=== PATIENT | male | born 1975 | race Caucasian/White ===

== ENCOUNTER 2016-03-26 21:20 | Inpatient (IN) | payer MEDICARE ==
[~2016-03-26] VITALS: Ht 190.5 cm; Wt 115.7 kg
[2016-03-26 21:00] VITALS: BP 137/82
[~2016-03-26 21:20] MED LIST: COLI150V IJ; DIAZ10TA4 PO; HYDR8TAB2 PO; LACT1CAP72 PO; PANT40TA2 PO; TRAM50TA2 PO; VANC1PLA9 IV; ZOLP10TA2 PO
[2016-03-26] MEDS ORDERED: MAGNESIUM HYDROXIDE 30 ML UDC PO PRN (22:30)
[2016-03-26] MEDS ORDERED: COLISTIMETHATE SODIUM 150 MG VIAL IJ SCH (22:30)
[2016-03-26] MEDS ORDERED: ZOLPIDEM TARTRATE 5 MG TABLET PO PRN (22:30)
[2016-03-26] MEDS ORDERED: Z GUARD REMEDY 2 OZ OINT TP PRN (22:30)
[2016-03-26] MEDS ORDERED: ONDANSETRON HCL/PF 4 MG/2 ML VIAL IVP PRN (22:30)
[2016-03-26] MEDS ORDERED: HYDROMORPHONE INJ 2 MG/ML DISP.SYRIN ONE (22:32)
[2016-03-26] MEDS: HYDROMORPHONE INJ 2 MG/ML DISP.SYRIN IV PRN (22:37)
[2016-03-26] MEDS ORDERED: IV NS 0.9% 250 ML IV ONE (23:16)
[2016-03-26] MEDS ORDERED: SECONDARY IV SET 1 EA INFUS.SET MC ONE (23:16)
[2016-03-26] MEDS ORDERED: IV NS 0.9% 50 ML IV ONE (23:16)
[2016-03-26] MEDS ORDERED: IV SET PRIMARY PUMP SET 1 EA INFUS.SET MC ONE (23:17)
[2016-03-26] MEDS: COLISTIMETHATE SODIUM 150 MG in IV NS 0.9% 50 ML IV SCH (23:29)
[2016-03-26] MEDS ORDERED: COLISTIMETHATE SODIUM 150 MG in IV NS 0.9% 50 ML IV SCH (23:30)
[2016-03-27 04:00] VITALS: BP 118/81
[2016-03-27] MEDS ORDERED: HYDROMORPHONE INJ 2 MG/ML DISP.SYRIN ONE (05:56)
[2016-03-27] MEDS: HYDROMORPHONE INJ 2 MG/ML DISP.SYRIN IV PRN ×3 (06:00→22:12)
[2016-03-27 07:57] LABS: ALBUMIN 3.2 g/dL (3.4-5.0); BILIRUBIN,TOTAL 0.2 mg/dL (0.2-1.0); CALCIUM, SERUM 8.6 mg/dL (8.5-10.1); CREATININE 1.2 mg/dL (0.6-1.3); PHOSPHORUS 4.1 mg/dL (2.5-4.9); POTASSIUM 3.4 mmol/L (3.5-5.1); TOTAL PROTEIN, SERUM 7.2 g/dL (6.4-8.2)
[2016-03-27 08:00] VITALS: BP 121/62
[2016-03-27 08:00] LABS: BASOPHILS # (AUTO) 0.1 /CMM (0.0-0.2); BASOPHILS % (AUTO) 1.3 % (0.0-2.0); DIFF TOTAL % 100 %; EOSINOPHILS # (AUTO) 0.5 /CMM (0.0-0.7); EOSINOPHILS % (AUTO) 5.2 % (0.0-6.0); HEMATOCRIT 35 % (39-51); HEMOGLOBIN 11.1 g/dL (13.5-17.5); LYMPHOCYTES # (AUTO) 2.4 /CMM (0.8-4.8); LYMPHOCYTES % (AUTO) 23.9 % (20.0-44.0); MEAN CORPUSCULAR HEMOGLOBIN 22 PG (26.0-33.0); MEAN CORPUSCULAR HGB CONC 32 g/dl (31.0-36.0); MEAN CORPUSCULAR VOLUME 70 fL (80-96); MONOCYTES # (AUTO) 0.8 /CMM (0.1-1.30); MONOCYTES % (AUTO) 7.9 % (2.0-12.0); NEUTROPHILS # (AUTO) 6.2 /CMM (1.8-8.9); NEUTROPHILS % (AUTO) 61.7 % (43.0-81.0); PLATELET COUNT (AUTO) 426 /CMM (150-450); RED BLOOD CELL COUNT(AUTO) 4.99 MIL/uL (4.5-6.0)
[2016-03-27 08:09] LABS: THYROID STIMULATING HORMONE 5.006 uIU/mL (0.358-3.74)
[2016-03-27] MEDS: LACTOBACILLUS RHAMNOSUS GG 1 EACH CAP.SPRINK PO SCH ×2 (08:39→16:34)
[2016-03-27] MEDS: PANTOPRAZOLE 40 MG TABLET.DR PO SCH (08:39)
[2016-03-27] MEDS: DIAZEPAM 5 MG TABLET PO SCH ×3 (08:39→16:39)
[2016-03-27] MEDS ORDERED: DIAZEPAM 10 MG TABLET PO SCH (09:00)
[2016-03-27] MEDS: COLISTIMETHATE SODIUM 150 MG in IV NS 0.9% 50 ML IV SCH ×2 (09:12→16:34)
[2016-03-27] MEDS ORDERED: SECONDARY IV SET 1 EA INFUS.SET MC ONE (11:01)
[2016-03-27] MEDS: Magnesium 1GM/D5W 100ML PREMIX 100 ML IV SCH ×2 (11:03→12:38)
[2016-03-27] MEDS ORDERED: IV SET PRIMARY PUMP SET 1 EA INFUS.SET MC ONE (11:03)
[2016-03-27] MEDS: POTASSIUM CL. PREMIX PERIPHER. 50 ML IV SCH ×2 (11:06→12:57)
[2016-03-27 11:45] LABS: ERYTHROCYTE SEDIMENTATION RATE 47 MM/HR (0-15)
[2016-03-27 12:50] LABS: EOSINOPHILS % (MANUAL) 5 % (0-4); LYMPHOCYTES % (MANUAL) 32 % (16-48)
[2016-03-27 12:51] LABS: ANISOCYTOSIS 1+; MICROCYTOSIS 1+; PLATELET ESTIMATE INCREASED
[2016-03-27] MEDS ORDERED: SILVER NITRATE APPLICATOR 1 EA BOX TP ONE ×2 (15:00)
[2016-03-27] MEDS ORDERED: LIDOCAINE 1%-EPI 1:100,000 20 ML VIAL TP ONE (15:00)
[2016-03-27 16:00] VITALS: BP 134/74
[2016-03-27 20:00] VITALS: BP 146/89
[2016-03-27] MEDS: ACETAMINOPHEN 325 MG TABLET PO PRN (20:50)
[2016-03-28 04:00] VITALS: BP 123/70
[2016-03-28 06:36] LABS: BASOPHILS % (AUTO) 0.3 % (0.0-2.0); DIFF TOTAL % 100 %; EOSINOPHILS # (AUTO) 0.2 /CMM (0.0-0.7); EOSINOPHILS % (AUTO) 2.5 % (0.0-6.0); HEMATOCRIT 33 % (39-51); HEMOGLOBIN 10.8 g/dL (13.5-17.5); LYMPHOCYTES # (AUTO) 1.1 /CMM (0.8-4.8); LYMPHOCYTES % (AUTO) 13.7 % (20.0-44.0); MEAN CORPUSCULAR HEMOGLOBIN 22 PG (26.0-33.0); MEAN CORPUSCULAR HGB CONC 32 g/dl (31.0-36.0); MEAN CORPUSCULAR VOLUME 69 fL (80-96); MONOCYTES # (AUTO) 0.6 /CMM (0.1-1.30); NEUTROPHILS % (AUTO) 75.5 % (43.0-81.0); PLATELET COUNT (AUTO) 316 /CMM (150-450); RED BLOOD CELL COUNT(AUTO) 4.82 MIL/uL (4.5-6.0); WHITE BLOOD COUNT (AUTO) 7.9 K/uL (4.3-11.0)
[2016-03-28 07:10] LABS: CREATININE 1.3 mg/dL (0.6-1.3); PHOSPHORUS 3.1 mg/dL (2.5-4.9); POTASSIUM 3.1 mmol/L (3.5-5.1)
[2016-03-28 08:00] VITALS: BP_SYST 115; BP_DIAS 62; BP_DIAS 66
[2016-03-28] MEDS: HYDROMORPHONE INJ 2 MG/ML DISP.SYRIN IV PRN ×4 (08:27→22:08)
[2016-03-28] MEDS: PANTOPRAZOLE 40 MG TABLET.DR PO SCH (08:28)
[2016-03-28] MEDS: COLISTIMETHATE SODIUM 150 MG in IV NS 0.9% 50 ML IV SCH ×2 (08:28→17:41)
[2016-03-28] MEDS: LACTOBACILLUS RHAMNOSUS GG 1 EACH CAP.SPRINK PO SCH ×2 (08:28→17:21)
[2016-03-28] MEDS: DIAZEPAM 5 MG TABLET PO SCH ×2 (09:00→17:00)
[2016-03-28 10:01] LABS: ANISOCYTOSIS 2+; BAND % (MANUAL) 6 % (0.0-5.0); EOSINOPHILS % (MANUAL) 5 % (0-4); LYMPHOCYTES % (MANUAL) 13 % (16-48); MICROCYTOSIS 2+; PLATELET ESTIMATE ADEQUATE
[2016-03-28 10:02] LABS: HYPOCHROMASIA 2+
[2016-03-28] MEDS: POTASSIUM CHLORIDE 20 MEQ TAB.PRT.SR PO SCH ×2 (12:53→14:14)
[2016-03-28] MEDS: Magnesium 1GM/D5W 100ML PREMIX 100 ML IV SCH ×2 (12:53→17:05)
[2016-03-28] MEDS: HYDROGEL DRESSING 90 GM TUBE TP SCH (15:00)
[2016-03-28 16:00] VITALS: BP 120/72
[2016-03-28 20:00] VITALS: BP 127/66
[2016-03-28] MEDS: ACETAMINOPHEN 325 MG TABLET PO PRN (22:02)
[2016-03-29] VITALS (7 sets, daily range): BP systolic 96–136; BP diastolic 67–113
[2016-03-29] MEDS: HYDROMORPHONE INJ 2 MG/ML DISP.SYRIN IV PRN ×5 (03:17→21:14)
[2016-03-29 07:54] LABS: BASOPHILS % (AUTO) 0.6 % (0.0-2.0); DIFF TOTAL % 100 %; EOSINOPHILS # (AUTO) 0.4 /CMM (0.0-0.7); EOSINOPHILS % (AUTO) 5.8 % (0.0-6.0); HEMATOCRIT 33 % (39-51); HEMOGLOBIN 10.7 g/dL (13.5-17.5); LYMPHOCYTES # (AUTO) 1.6 /CMM (0.8-4.8); LYMPHOCYTES % (AUTO) 23.4 % (20.0-44.0); MEAN CORPUSCULAR HEMOGLOBIN 23 PG (26.0-33.0); MEAN CORPUSCULAR HGB CONC 33 g/dl (31.0-36.0); MEAN CORPUSCULAR VOLUME 70 fL (80-96); MONOCYTES % (AUTO) 14.7 % (2.0-12.0); NEUTROPHILS # (AUTO) 3.7 /CMM (1.8-8.9); NEUTROPHILS % (AUTO) 55.5 % (43.0-81.0); PLATELET COUNT (AUTO) 317 /CMM (150-450); RED BLOOD CELL COUNT(AUTO) 4.67 MIL/uL (4.5-6.0); WHITE BLOOD COUNT (AUTO) 6.7 K/uL (4.3-11.0)
[2016-03-29 08:20] LABS: CALCIUM, SERUM 8.5 mg/dL (8.5-10.1); CREATININE 1.4 mg/dL (0.6-1.3); PHOSPHORUS 3.6 mg/dL (2.5-4.9); POTASSIUM 2.9 mmol/L (3.5-5.1)
[2016-03-29] MEDS: COLISTIMETHATE SODIUM 150 MG in IV NS 0.9% 50 ML IV SCH ×2 (08:37→16:03)
[2016-03-29] MEDS: PANTOPRAZOLE 40 MG TABLET.DR PO SCH (08:38)
[2016-03-29] MEDS: LACTOBACILLUS RHAMNOSUS GG 1 EACH CAP.SPRINK PO SCH ×2 (08:38→16:04)
[2016-03-29] MEDS: DIAZEPAM 5 MG TABLET PO SCH ×2 (08:40→16:10)
[2016-03-29] MEDS: HYDROGEL DRESSING 90 GM TUBE TP SCH (08:40)
[2016-03-29] MEDS: ACETAMINOPHEN 325 MG TABLET PO PRN (08:48)
[2016-03-29] MEDS: MUPIROCIN OINT 2% 22 GM TUBE SCH ×2 (10:25→21:30)
[2016-03-29] MEDS: POTASSIUM CHLORIDE 20 MEQ TAB.PRT.SR PO SCH ×3 (12:54→14:51)
[2016-03-29] MEDS ORDERED: IV NS 0.9% 250 ML IV ONE (22:49)
[2016-03-30] VITALS: BP 130/80
[2016-03-30 00:01] VITALS: BP_SYST 130
[2016-03-30] MEDS: HYDROMORPHONE INJ 2 MG/ML DISP.SYRIN IV PRN ×7 (01:29→23:19)
[2016-03-30] MEDS: ZOLPIDEM TARTRATE 10 MG TABLET PO PRN (01:37)
[2016-03-30 04:00] VITALS: BP 149/89
[2016-03-30 08:03] LABS: BASOPHILS % (AUTO) 0.5 % (0.0-2.0); CALCIUM, SERUM 8.7 mg/dL (8.5-10.1); CREATININE 1.6 mg/dL (0.6-1.3); DIFF TOTAL % 100 %; EOSINOPHILS # (AUTO) 0.5 /CMM (0.0-0.7); EOSINOPHILS % (AUTO) 7.3 % (0.0-6.0); HEMATOCRIT 36 % (39-51); HEMOGLOBIN 11.1 g/dL (13.5-17.5); LYMPHOCYTES # (AUTO) 1.5 /CMM (0.8-4.8); LYMPHOCYTES % (AUTO) 20.5 % (20.0-44.0); MEAN CORPUSCULAR HEMOGLOBIN 22 PG (26.0-33.0); MEAN CORPUSCULAR HGB CONC 31 g/dl (31.0-36.0); MEAN CORPUSCULAR VOLUME 71 fL (80-96); MONOCYTES # (AUTO) 0.9 /CMM (0.1-1.30); MONOCYTES % (AUTO) 12.1 % (2.0-12.0); NEUTROPHILS # (AUTO) 4.4 /CMM (1.8-8.9); NEUTROPHILS % (AUTO) 59.6 % (43.0-81.0); PHOSPHORUS 4.1 mg/dL (2.5-4.9); PLATELET COUNT (AUTO) 358 /CMM (150-450); POTASSIUM 2.9 mmol/L (3.5-5.1); RED BLOOD CELL COUNT(AUTO) 5.02 MIL/uL (4.5-6.0); WHITE BLOOD COUNT (AUTO) 7.4 K/uL (4.3-11.0)
[2016-03-30] MEDS: HYDROGEL DRESSING 90 GM TUBE TP SCH (09:00)
[2016-03-30] MEDS: LACTOBACILLUS RHAMNOSUS GG 1 EACH CAP.SPRINK PO SCH ×2 (09:00→17:00)
[2016-03-30] MEDS: PANTOPRAZOLE 40 MG TABLET.DR PO SCH (09:00)
[2016-03-30] MEDS: DIAZEPAM 5 MG TABLET PO SCH ×2 (09:00→17:00)
[2016-03-30 09:11] VITALS: BP 144/70
[2016-03-30] MEDS: MUPIROCIN OINT 2% 22 GM TUBE SCH ×2 (09:14→21:13)
[2016-03-30] MEDS: COLISTIMETHATE SODIUM 150 MG in IV NS 0.9% 50 ML IV SCH ×2 (09:19→17:00)
[2016-03-30] MEDS ORDERED: LIDOCAINE HCL/PF 1% 30 ML SDV ONE (12:30)
[2016-03-30] MEDS ORDERED: BUPIVACAINE MPF 0.5% W/EPI INJ 30 ML VIAL ONE (12:31)
[2016-03-30] MEDS ORDERED: MIDAZOLAM HCL 2 MG/2ML VIAL ONE (13:26)
[2016-03-30] MEDS ORDERED: FENTANYL PF 100MCG/2ML AMPUL ONE (13:26)
[2016-03-30] MEDS ORDERED: Magnesium 1GM/D5W 100ML PREMIX 100 ML IV SCH (13:45)
[2016-03-30] MEDS: POTASSIUM CL. PREMIX PERIPHER. 50 ML IV SCH ×6 (14:00→23:18)
[2016-03-30] MEDS ORDERED: HYDROGEN PEROXIDE 480 ML BOTTLE ONE (15:50)
[2016-03-30 18:51] VITALS: BP 144/70
[2016-03-30] MEDS ORDERED: ANESTHESIA TRAY IN PYXIS 1 EA TRAY MC ONE (19:02)
[2016-03-30] MEDS: Magnesium 1GM/D5W 100ML PREMIX 100 ML IV SCH ×2 (19:58→21:13)
[2016-03-30 20:00] VITALS: BP 135/74
[2016-03-31] VITALS: BP 122/72
[2016-03-31] MEDS: POTASSIUM CL. PREMIX PERIPHER. 50 ML IV SCH ×6 (00:34→19:59)
[2016-03-31] MEDS: HYDROMORPHONE INJ 2 MG/ML DISP.SYRIN IV PRN ×5 (03:16→21:30)
[2016-03-31 04:00] VITALS: BP 129/72
[2016-03-31 06:50] LABS: CALCIUM, SERUM 8.2 mg/dL (8.5-10.1); POTASSIUM 2.9 mmol/L (3.5-5.1)
[2016-03-31 08:00] VITALS: BP 101/61
[2016-03-31] MEDS ORDERED: IV NS 0.9% 250 ML IV ONE (08:52)
[2016-03-31] MEDS ORDERED: IV SET PRIMARY PUMP SET 1 EA INFUS.SET MC ONE ×2 (08:53→17:24)
[2016-03-31] MEDS ORDERED: SECONDARY IV SET 1 EA INFUS.SET MC ONE ×2 (08:53→14:49)
[2016-03-31] MEDS: DIAZEPAM 5 MG TABLET PO SCH ×2 (09:00→18:29)
[2016-03-31] MEDS: PANTOPRAZOLE 40 MG TABLET.DR PO SCH (09:12)
[2016-03-31] MEDS: LACTOBACILLUS RHAMNOSUS GG 1 EACH CAP.SPRINK PO SCH ×2 (09:12→18:28)
[2016-03-31] MEDS: COLISTIMETHATE SODIUM 150 MG in IV NS 0.9% 50 ML IV SCH ×2 (09:12→17:35)
[2016-03-31] MEDS: MUPIROCIN OINT 2% 22 GM TUBE SCH ×2 (09:13→21:30)
[2016-03-31] MEDS: HYDROGEL DRESSING 90 GM TUBE TP SCH (09:15)
[2016-03-31 12:00] VITALS: BP 115/73
[2016-03-31] MEDS ORDERED: Magnesium 1GM/D5W 100ML PREMIX 100 ML IV SCH ×2 (12:00→16:00)
[2016-03-31 16:00] VITALS: BP 129/78
[2016-03-31] MEDS: Potassium Chloride 20 MEQ in IV NS 0.9% 1,000 ML IV PRN (17:27)
[2016-03-31 20:00] VITALS: BP 117/70
[2016-04-01] VITALS: BP 111/67
[2016-04-01 04:00] VITALS: BP 118/70
[2016-04-01] MEDS: HYDROMORPHONE INJ 2 MG/ML DISP.SYRIN IV PRN ×5 (05:48→23:20)
[2016-04-01 06:37] LABS: BASOPHILS # (AUTO) 0.1 /CMM (0.0-0.2); BASOPHILS % (AUTO) 0.6 % (0.0-2.0); DIFF TOTAL % 100 %; EOSINOPHILS # (AUTO) 0.5 /CMM (0.0-0.7); EOSINOPHILS % (AUTO) 5.3 % (0.0-6.0); HEMATOCRIT 32 % (39-51); HEMOGLOBIN 10.3 g/dL (13.5-17.5); LYMPHOCYTES # (AUTO) 1.4 /CMM (0.8-4.8); LYMPHOCYTES % (AUTO) 14.6 % (20.0-44.0); MEAN CORPUSCULAR HEMOGLOBIN 23 PG (26.0-33.0); MEAN CORPUSCULAR HGB CONC 32 g/dl (31.0-36.0); MEAN CORPUSCULAR VOLUME 71 fL (80-96); MONOCYTES # (AUTO) 0.8 /CMM (0.1-1.30); MONOCYTES % (AUTO) 8.7 % (2.0-12.0); NEUTROPHILS # (AUTO) 6.8 /CMM (1.8-8.9); NEUTROPHILS % (AUTO) 70.8 % (43.0-81.0); PLATELET COUNT (AUTO) 383 /CMM (150-450); RED BLOOD CELL COUNT(AUTO) 4.56 MIL/uL (4.5-6.0); WHITE BLOOD COUNT (AUTO) 9.6 K/uL (4.3-11.0)
[2016-04-01 06:55] LABS: CALCIUM, SERUM 8.5 mg/dL (8.5-10.1)
[2016-04-01 07:22] LABS: POTASSIUM 2.7 mmol/L (3.5-5.1)
[2016-04-01 08:00] VITALS: BP 104/55
[2016-04-01] MEDS ORDERED: POTASSIUM CHLORIDE 20 MEQ TAB.PRT.SR PO ONE (09:00)
[2016-04-01] MEDS: DIAZEPAM 5 MG TABLET PO SCH ×2 (09:00→18:59)
[2016-04-01] MEDS: COLISTIMETHATE SODIUM 150 MG in IV NS 0.9% 50 ML IV SCH ×2 (09:19→17:00)
[2016-04-01] MEDS: PANTOPRAZOLE 40 MG TABLET.DR PO SCH (09:20)
[2016-04-01] MEDS: LACTOBACILLUS RHAMNOSUS GG 1 EACH CAP.SPRINK PO SCH ×2 (09:20→18:59)
[2016-04-01] MEDS: HYDROGEL DRESSING 90 GM TUBE TP SCH (09:21)
[2016-04-01] MEDS: MUPIROCIN OINT 2% 22 GM TUBE SCH ×2 (09:37→21:03)
[2016-04-01] MEDS ORDERED: Magnesium 1GM/D5W 100ML PREMIX PIGGYBACK IV ONE (12:00)
[2016-04-01] MEDS: ACETAMINOPHEN 325 MG TABLET PO PRN ×2 (12:17→21:03)
[2016-04-01] MEDS: Magnesium 1GM/D5W 100ML PREMIX 100 ML IV SCH ×2 (14:38→15:47)
[2016-04-01 16:00] VITALS: BP 116/68
[2016-04-01 20:00] VITALS: BP 131/70
[2016-04-01] MEDS: Potassium Chloride 20 MEQ in IV NS 0.9% 1,000 ML IV PRN (21:07)
[2016-04-02] MEDS: ZOLPIDEM TARTRATE 10 MG TABLET PO PRN (02:17)
[2016-04-02] MEDS: HYDROMORPHONE INJ 2 MG/ML DISP.SYRIN IV PRN ×5 (02:20→21:20)
[2016-04-02 04:00] VITALS: BP 124/73
[2016-04-02 06:20] LABS: CALCIUM, SERUM 8.2 mg/dL (8.5-10.1); CREATININE 1.7 mg/dL (0.6-1.3)
[2016-04-02] MEDS: Potassium Chloride 20 MEQ in IV NS 0.9% 1,000 ML IV PRN ×2 (06:31→22:58)
[2016-04-02 06:39] LABS: POTASSIUM 2.8 mmol/L (3.5-5.1)
[2016-04-02 08:00] VITALS: BP 130/75
[2016-04-02] MEDS: COLISTIMETHATE SODIUM 150 MG in IV NS 0.9% 50 ML IV SCH ×2 (08:43→16:53)
[2016-04-02] MEDS: DIAZEPAM 5 MG TABLET PO SCH ×2 (08:43→16:53)
[2016-04-02] MEDS: LACTOBACILLUS RHAMNOSUS GG 1 EACH CAP.SPRINK PO SCH ×2 (08:43→16:53)
[2016-04-02] MEDS: PANTOPRAZOLE 40 MG TABLET.DR PO SCH (08:43)
[2016-04-02] MEDS: HYDROGEL DRESSING 90 GM TUBE TP SCH (08:45)
[2016-04-02] MEDS: MUPIROCIN OINT 2% 22 GM TUBE SCH ×2 (08:47→20:59)
[2016-04-02] MEDS: POTASSIUM CL. PREMIX PERIPHER. 50 ML IV SCH ×4 (11:18→15:19)
[2016-04-02] MEDS ORDERED: POTASSIUM CL. PREMIX PERIPHER. 50 ML IV SCH (11:30)
[2016-04-02 16:00] VITALS: BP 109/70
[2016-04-02 20:00] VITALS: BP 125/78
[2016-04-02] MEDS: LINEZOLID 600 MG TABLET PO SCH (20:59)
[2016-04-03] MEDS: HYDROMORPHONE INJ 2 MG/ML DISP.SYRIN IV PRN ×6 (01:14→21:44)
[2016-04-03 04:00] VITALS: BP 144/80
[2016-04-03 08:00] VITALS: BP 139/68
[2016-04-03] MEDS: COLISTIMETHATE SODIUM 150 MG in IV NS 0.9% 50 ML IV SCH ×2 (09:03→17:23)
[2016-04-03] MEDS: LACTOBACILLUS RHAMNOSUS GG 1 EACH CAP.SPRINK PO SCH ×2 (09:04→17:17)
[2016-04-03] MEDS: LINEZOLID 600 MG TABLET PO SCH ×2 (09:04→20:25)
[2016-04-03] MEDS: PANTOPRAZOLE 40 MG TABLET.DR PO SCH (09:04)
[2016-04-03] MEDS: DIAZEPAM 5 MG TABLET PO SCH ×2 (09:04→17:00)
[2016-04-03] MEDS: MUPIROCIN OINT 2% 22 GM TUBE SCH (09:05)
[2016-04-03] MEDS: Potassium Chloride 20 MEQ in IV NS 0.9% 1,000 ML IV PRN (09:05)
[2016-04-03] MEDS: HYDROGEL DRESSING 90 GM TUBE TP SCH (09:05)
[2016-04-03 12:00] VITALS: BP 113/75
[2016-04-03] MEDS: ACETAMINOPHEN 325 MG TABLET PO PRN (13:14)
[2016-04-03 14:50] LABS: BASOPHILS % (AUTO) 0.6 % (0.0-2.0); DIFF TOTAL % 100 %; EOSINOPHILS # (AUTO) 0.5 /CMM (0.0-0.7); EOSINOPHILS % (AUTO) 7.3 % (0.0-6.0); HEMATOCRIT 29 % (39-51); HEMOGLOBIN 9.4 g/dL (13.5-17.5); LYMPHOCYTES # (AUTO) 1.8 /CMM (0.8-4.8); LYMPHOCYTES % (AUTO) 25.5 % (20.0-44.0); MEAN CORPUSCULAR HEMOGLOBIN 22 PG (26.0-33.0); MEAN CORPUSCULAR HGB CONC 32 g/dl (31.0-36.0); MEAN CORPUSCULAR VOLUME 70 fL (80-96); MONOCYTES % (AUTO) 14.4 % (2.0-12.0); NEUTROPHILS # (AUTO) 3.7 /CMM (1.8-8.9); NEUTROPHILS % (AUTO) 52.2 % (43.0-81.0); PLATELET COUNT (AUTO) 346 /CMM (150-450); RED BLOOD CELL COUNT(AUTO) 4.19 MIL/uL (4.5-6.0); WHITE BLOOD COUNT (AUTO) 7.1 K/uL (4.3-11.0)
[2016-04-03 15:04] LABS: CALCIUM, SERUM 8.8 mg/dL (8.5-10.1); CREATININE 1.8 mg/dL (0.6-1.3); POTASSIUM 3.4 mmol/L (3.5-5.1)
[2016-04-03] MEDS ORDERED: Magnesium 1GM/D5W 100ML PREMIX PIGGYBACK IV ONE (15:30)
[2016-04-03 16:00] VITALS: BP 108/73
[2016-04-03] MEDS ORDERED: POLYETHYLENE GLYCOL 3350 17 GM POWD.PACK PO PRN (17:00)
[2016-04-03 17:01] LABS: EOSINOPHILS % (MANUAL) 5 % (0-4); LYMPHOCYTES % (MANUAL) 26 % (16-48)
[2016-04-03 17:02] LABS: ANISOCYTOSIS 2+; HYPOCHROMASIA 1+; PLATELET ESTIMATE ADEQUATE
[2016-04-03] MEDS ORDERED: SECONDARY IV SET 1 EA INFUS.SET MC ONE (17:13)
[2016-04-03] MEDS: DOCUSATE SODIUM 100 MG CAPSULE PO SCH (17:17)
[2016-04-03] MEDS: Magnesium 1GM/D5W 100ML PREMIX 100 ML IV SCH ×3 (17:21→21:38)
[2016-04-03] MEDS: POTASSIUM CL. PREMIX PERIPHER. 50 ML IV SCH ×2 (17:32→22:50)
[2016-04-03 20:00] VITALS: BP 120/76
[2016-04-04] VITALS (7 sets, daily range): BP systolic 115–149; BP diastolic 57–85
[2016-04-04] MEDS: HYDROMORPHONE INJ 2 MG/ML DISP.SYRIN IV PRN ×6 (00:20→23:05)
[2016-04-04] MEDS: MUPIROCIN OINT 2% 22 GM TUBE SCH ×3 (00:57→21:41)
[2016-04-04] MEDS: Magnesium 1GM/D5W 100ML PREMIX 100 ML IV SCH (01:58)
[2016-04-04] MEDS: ZOLPIDEM TARTRATE 10 MG TABLET PO PRN (01:58)
[2016-04-04 06:38] LABS: BASOPHILS # (AUTO) 0.2 /CMM (0.0-0.2); BASOPHILS % (AUTO) 2.4 % (0.0-2.0); DIFF TOTAL % 100 %; EOSINOPHILS # (AUTO) 0.7 /CMM (0.0-0.7); EOSINOPHILS % (AUTO) 7.9 % (0.0-6.0); HEMATOCRIT 30 % (39-51); HEMOGLOBIN 9.7 g/dL (13.5-17.5); LYMPHOCYTES # (AUTO) 2.2 /CMM (0.8-4.8); MEAN CORPUSCULAR HEMOGLOBIN 23 PG (26.0-33.0); MEAN CORPUSCULAR HGB CONC 32 g/dl (31.0-36.0); MEAN CORPUSCULAR VOLUME 70 fL (80-96); MONOCYTES # (AUTO) 0.9 /CMM (0.1-1.30); MONOCYTES % (AUTO) 11.3 % (2.0-12.0); NEUTROPHILS # (AUTO) 4.4 /CMM (1.8-8.9); NEUTROPHILS % (AUTO) 52.4 % (43.0-81.0); PLATELET COUNT (AUTO) 446 /CMM (150-450); WHITE BLOOD COUNT (AUTO) 8.4 K/uL (4.3-11.0)
[2016-04-04 07:29] LABS: CALCIUM, SERUM 9.1 mg/dL (8.5-10.1); CREATININE 1.7 mg/dL (0.6-1.3); POTASSIUM 3.3 mmol/L (3.5-5.1)
[2016-04-04] MEDS: LACTOBACILLUS RHAMNOSUS GG 1 EACH CAP.SPRINK PO SCH ×2 (09:13→16:09)
[2016-04-04] MEDS: DOCUSATE SODIUM 100 MG CAPSULE PO SCH ×2 (09:13→16:09)
[2016-04-04] MEDS: PANTOPRAZOLE 40 MG TABLET.DR PO SCH (09:13)
[2016-04-04] MEDS: LINEZOLID 600 MG TABLET PO SCH ×2 (09:13→21:40)
[2016-04-04] MEDS: COLISTIMETHATE SODIUM 150 MG in IV NS 0.9% 50 ML IV SCH ×2 (09:14→16:09)
[2016-04-04] MEDS: DIAZEPAM 5 MG TABLET PO SCH ×2 (09:14→16:10)
[2016-04-04] MEDS: HYDROGEL DRESSING 90 GM TUBE TP SCH (09:25)
[2016-04-04] MEDS: Potassium Chloride 20 MEQ in IV NS 0.9% 1,000 ML IV PRN (12:55)
[2016-04-04] MEDS ORDERED: POTASSIUM CHLORIDE 10 MEQ/50 ML PREMIXED IVPB FOR PERIPHERAL LINE IV ONE (14:00)
[2016-04-04] MEDS: POTASSIUM CL. PREMIX PERIPHER. 50 ML IV SCH ×3 (14:51→17:28)
[2016-04-05 04:00] VITALS: BP 133/84
[2016-04-05] MEDS: HYDROMORPHONE INJ 2 MG/ML DISP.SYRIN IV PRN ×4 (04:08→17:29)
[2016-04-05] MEDS ORDERED: NA PHOS,M-B/NA PHOS,DI-BA 1 EA ENEMA RC PRN ×2 (05:00→08:22)
[2016-04-05] MEDS ORDERED: NA PHOS,M-B/NA PHOS,DI-BA 1 EA ENEMA RC ONE (05:28)
[2016-04-05 07:33] LABS: BASOPHILS # (AUTO) 0.1 /CMM (0.0-0.2); BASOPHILS % (AUTO) 0.5 % (0.0-2.0); DIFF TOTAL % 100 %; EOSINOPHILS # (AUTO) 0.6 /CMM (0.0-0.7); EOSINOPHILS % (AUTO) 5.5 % (0.0-6.0); HEMATOCRIT 32 % (39-51); HEMOGLOBIN 10.1 g/dL (13.5-17.5); LYMPHOCYTES # (AUTO) 2.1 /CMM (0.8-4.8); LYMPHOCYTES % (AUTO) 20.9 % (20.0-44.0); MEAN CORPUSCULAR HEMOGLOBIN 22 PG (26.0-33.0); MEAN CORPUSCULAR HGB CONC 32 g/dl (31.0-36.0); MEAN CORPUSCULAR VOLUME 70 fL (80-96); MONOCYTES # (AUTO) 0.7 /CMM (0.1-1.30); MONOCYTES % (AUTO) 7.3 % (2.0-12.0); NEUTROPHILS # (AUTO) 6.7 /CMM (1.8-8.9); NEUTROPHILS % (AUTO) 65.8 % (43.0-81.0); PLATELET COUNT (AUTO) 470 /CMM (150-450); RED BLOOD CELL COUNT(AUTO) 4.51 MIL/uL (4.5-6.0); WHITE BLOOD COUNT (AUTO) 10.1 K/uL (4.3-11.0)
[2016-04-05 07:56] LABS: CREATININE 1.7 mg/dL (0.6-1.3); POTASSIUM 3.4 mmol/L (3.5-5.1)
[2016-04-05 08:00] VITALS: BP 118/74
[2016-04-05 08:39] LABS: BAND % (MANUAL) 2 % (0.0-5.0); EOSINOPHILS % (MANUAL) 4 % (0-4); LYMPHOCYTES % (MANUAL) 11 % (16-48)
[2016-04-05 08:40] LABS: ANISOCYTOSIS 3+; HYPOCHROMASIA 1+; MICROCYTOSIS 1+; PLATELET ESTIMATE INCREASED
[2016-04-05] MEDS: COLISTIMETHATE SODIUM 150 MG in IV NS 0.9% 50 ML IV SCH ×2 (09:25→17:34)
[2016-04-05] MEDS: DOCUSATE SODIUM 100 MG CAPSULE PO SCH ×2 (09:27→17:29)
[2016-04-05] MEDS: LACTOBACILLUS RHAMNOSUS GG 1 EACH CAP.SPRINK PO SCH ×2 (09:27→17:29)
[2016-04-05] MEDS: DIAZEPAM 5 MG TABLET PO SCH ×2 (09:27→17:29)
[2016-04-05] MEDS: LINEZOLID 600 MG TABLET PO SCH ×2 (09:27→23:14)
[2016-04-05] MEDS: PANTOPRAZOLE 40 MG TABLET.DR PO SCH (09:27)
[2016-04-05] MEDS: HYDROGEL DRESSING 90 GM TUBE TP SCH (09:29)
[2016-04-05] MEDS: MUPIROCIN OINT 2% 22 GM TUBE SCH ×2 (09:29→21:00)
[2016-04-05] MEDS ORDERED: POTASSIUM CHLORIDE 20 MEQ TAB.PRT.SR PO ONE (13:00)
[2016-04-05] MEDS ORDERED: BISACODYL SUPP (10 MG) 10 MG/SUPP.RECT SUPP.RECT RC PRN (13:00)
[2016-04-05 16:00] VITALS: BP 133/72
[2016-04-05 20:00] VITALS: BP 143/83
[2016-04-06] VITALS: BP 143/83
[2016-04-06] MEDS: HYDROMORPHONE INJ 2 MG/ML DISP.SYRIN IV PRN ×3 (01:09→20:39)
[2016-04-06 04:00] VITALS: BP 137/86
[2016-04-06] MEDS: DOCUSATE SODIUM 100 MG CAPSULE PO SCH ×2 (08:45→16:22)
[2016-04-06] MEDS: LACTOBACILLUS RHAMNOSUS GG 1 EACH CAP.SPRINK PO SCH ×2 (08:47→16:22)
[2016-04-06] MEDS: HYDROGEL DRESSING 90 GM TUBE TP SCH (09:00)
[2016-04-06] MEDS: COLISTIMETHATE SODIUM 150 MG in IV NS 0.9% 50 ML IV SCH ×2 (09:00→16:22)
[2016-04-06] MEDS: PANTOPRAZOLE 40 MG TABLET.DR PO SCH (09:00)
[2016-04-06] MEDS: MUPIROCIN OINT 2% 22 GM TUBE SCH ×2 (09:00→21:20)
[2016-04-06] MEDS: LINEZOLID 600 MG TABLET PO SCH ×2 (09:00→21:15)
[2016-04-06] MEDS: DIAZEPAM 5 MG TABLET PO SCH ×2 (09:00→16:42)
[2016-04-06 09:02] LABS: CALCIUM, SERUM 8.4 mg/dL (8.5-10.1); CREATININE 1.7 mg/dL (0.6-1.3); POTASSIUM 3.2 mmol/L (3.5-5.1)
[2016-04-06 18:49] VITALS: BP 132/77
[2016-04-06 20:00] VITALS: BP 126/75
[2016-04-07] MEDS: HYDROMORPHONE INJ 2 MG/ML DISP.SYRIN IV PRN ×6 (00:30→21:42)
[2016-04-07 04:00] VITALS: BP 122/77
[2016-04-07 07:41] LABS: CALCIUM, SERUM 8.3 mg/dL (8.5-10.1); CREATININE 1.7 mg/dL (0.6-1.3)
[2016-04-07 08:05] LABS: POTASSIUM 2.8 mmol/L (3.5-5.1)
[2016-04-07 09:00] VITALS: BP 128/68
[2016-04-07] MEDS: HYDROGEL DRESSING 90 GM TUBE TP SCH (09:00)
[2016-04-07] MEDS: MUPIROCIN OINT 2% 22 GM TUBE SCH ×2 (09:00→21:00)
[2016-04-07] MEDS: DIAZEPAM 5 MG TABLET PO SCH ×2 (09:14→16:49)
[2016-04-07] MEDS: DOCUSATE SODIUM 100 MG CAPSULE PO SCH ×2 (09:14→16:49)
[2016-04-07] MEDS: COLISTIMETHATE SODIUM 150 MG in IV NS 0.9% 50 ML IV SCH ×2 (09:14→18:11)
[2016-04-07] MEDS: PANTOPRAZOLE 40 MG TABLET.DR PO SCH (09:15)
[2016-04-07] MEDS: LACTOBACILLUS RHAMNOSUS GG 1 EACH CAP.SPRINK PO SCH ×2 (09:15→16:49)
[2016-04-07] MEDS: LINEZOLID 600 MG TABLET PO SCH ×2 (09:15→22:05)
[2016-04-07] MEDS: Potassium Chloride 20 MEQ in IV NS 0.9% 1,000 ML IV PRN (10:16)
[2016-04-07] MEDS ORDERED: POTASSIUM CHLORIDE 20 MEQ TAB.PRT.SR PO ONE (13:30)
[2016-04-07] MEDS ORDERED: SECONDARY IV SET 1 EA INFUS.SET MC ONE (14:03)
[2016-04-07] MEDS: POTASSIUM CL. PREMIX PERIPHER. 50 ML IV SCH ×4 (14:08→17:22)
[2016-04-07 16:00] VITALS: BP 140/54
[2016-04-07 20:00] VITALS: BP 126/83
[2016-04-08] VITALS: BP 126/83
[2016-04-08] MEDS: HYDROMORPHONE INJ 2 MG/ML DISP.SYRIN IV PRN ×7 (00:40→20:46)
[2016-04-08 04:00] VITALS: BP 127/76
[2016-04-08 08:00] VITALS: BP 122/65
[2016-04-08] MEDS: DIAZEPAM 5 MG TABLET PO SCH ×2 (09:00→17:00)
[2016-04-08 09:02] LABS: CALCIUM, SERUM 8.5 mg/dL (8.5-10.1); CREATININE 1.5 mg/dL (0.6-1.3); POTASSIUM 3.4 mmol/L (3.5-5.1)
[2016-04-08] MEDS ORDERED: SECONDARY IV SET 1 EA INFUS.SET MC ONE (09:28)
[2016-04-08] MEDS ORDERED: IV SET PRIMARY PUMP SET 1 EA INFUS.SET MC ONE (09:31)
[2016-04-08] MEDS: PANTOPRAZOLE 40 MG TABLET.DR PO SCH (09:37)
[2016-04-08] MEDS: LACTOBACILLUS RHAMNOSUS GG 1 EACH CAP.SPRINK PO SCH ×2 (09:37→17:39)
[2016-04-08] MEDS: DOCUSATE SODIUM 100 MG CAPSULE PO SCH ×2 (09:37→17:00)
[2016-04-08] MEDS: COLISTIMETHATE SODIUM 150 MG in IV NS 0.9% 50 ML IV SCH ×2 (09:37→17:39)
[2016-04-08] MEDS: LINEZOLID 600 MG TABLET PO SCH ×2 (09:38→20:47)
[2016-04-08] MEDS: HYDROGEL DRESSING 90 GM TUBE TP SCH (09:39)
[2016-04-08] MEDS: MUPIROCIN OINT 2% 22 GM TUBE SCH ×2 (09:40→20:47)
[2016-04-08 16:00] VITALS: BP_SYST 125; BP_DIAS 67; BP_DIAS 68
[2016-04-08 20:00] VITALS: BP 124/88
[2016-04-09] MEDS: HYDROMORPHONE INJ 2 MG/ML DISP.SYRIN IV PRN ×6 (00:32→23:03)
[2016-04-09 04:00] VITALS: BP 126/90
[2016-04-09 08:00] VITALS: BP 151/80
[2016-04-09 08:25] VITALS: BP 151/80
[2016-04-09] MEDS: DOCUSATE SODIUM 100 MG CAPSULE PO SCH ×2 (09:00→17:00)
[2016-04-09] MEDS: DIAZEPAM 5 MG TABLET PO SCH ×2 (09:00→17:17)
[2016-04-09] MEDS: COLISTIMETHATE SODIUM 150 MG in IV NS 0.9% 50 ML IV SCH ×2 (09:05→18:49)
[2016-04-09] MEDS: HYDROGEL DRESSING 90 GM TUBE TP SCH (09:09)
[2016-04-09] MEDS: PANTOPRAZOLE 40 MG TABLET.DR PO SCH (09:09)
[2016-04-09] MEDS: LACTOBACILLUS RHAMNOSUS GG 1 EACH CAP.SPRINK PO SCH ×2 (09:09→17:15)
[2016-04-09] MEDS: LINEZOLID 600 MG TABLET PO SCH ×2 (09:09→20:21)
[2016-04-09] MEDS: MUPIROCIN OINT 2% 22 GM TUBE SCH ×2 (09:09→20:22)
[2016-04-09 11:47] LABS: CALCIUM, SERUM 8.5 mg/dL (8.5-10.1); CREATININE 1.7 mg/dL (0.6-1.3); POTASSIUM 2.9 mmol/L (3.5-5.1)
[2016-04-09 16:00] VITALS: BP 107/46
[2016-04-09 16:41] VITALS: BP 107/66
[2016-04-09] MEDS ORDERED: POTASSIUM CHLORIDE 20 MEQ TAB.PRT.SR PO ONE (19:30)
[2016-04-09 20:00] VITALS: BP 130/70
[2016-04-09] MEDS ORDERED: SECONDARY IV SET 1 EA INFUS.SET MC ONE (20:10)
[2016-04-09] MEDS ORDERED: IV SET PRIMARY PUMP SET 1 EA INFUS.SET MC ONE (20:10)
[2016-04-09] MEDS ORDERED: IV NS 0.9% 500 ML IV ONE (20:11)
[2016-04-09] MEDS: POTASSIUM CL. PREMIX PERIPHER. 50 ML IV SCH ×3 (20:21→23:03)
[2016-04-10] MEDS: POTASSIUM CL. PREMIX PERIPHER. 50 ML IV SCH (00:34)
[2016-04-10] MEDS: HYDROMORPHONE INJ 2 MG/ML DISP.SYRIN IV PRN ×5 (02:41→20:39)
[2016-04-10 02:45] VITALS: BP 125/76
[2016-04-10 04:00] VITALS: BP 130/84
[2016-04-10 08:00] VITALS: BP_SYST 122; BP_SYST 95; BP_DIAS 35; BP_DIAS 79
[2016-04-10] MEDS: DOCUSATE SODIUM 100 MG CAPSULE PO SCH ×2 (09:00→17:19)
[2016-04-10] MEDS: HYDROGEL DRESSING 90 GM TUBE TP SCH (09:00)
[2016-04-10] MEDS: MUPIROCIN OINT 2% 22 GM TUBE SCH ×2 (09:00→21:28)
[2016-04-10] MEDS: LINEZOLID 600 MG TABLET PO SCH ×2 (09:07→20:40)
[2016-04-10] MEDS: DIAZEPAM 5 MG TABLET PO SCH ×2 (09:07→17:19)
[2016-04-10] MEDS: COLISTIMETHATE SODIUM 150 MG in IV NS 0.9% 50 ML IV SCH ×2 (09:07→17:21)
[2016-04-10] MEDS: PANTOPRAZOLE 40 MG TABLET.DR PO SCH (09:07)
[2016-04-10] MEDS: LACTOBACILLUS RHAMNOSUS GG 1 EACH CAP.SPRINK PO SCH ×2 (09:08→17:19)
[2016-04-10] MEDS ORDERED: SECONDARY IV SET 1 EA INFUS.SET MC ONE ×2 (09:16→21:22)
[2016-04-10 10:11] LABS: CALCIUM, SERUM 8.2 mg/dL (8.5-10.1); CREATININE 1.6 mg/dL (0.6-1.3); POTASSIUM 3.3 mmol/L (3.5-5.1)
[2016-04-10] MEDS ORDERED: POTASSIUM CHLORIDE 20 MEQ TAB.PRT.SR PO SCH (15:00)
[2016-04-10 16:00] VITALS: BP 142/75
[2016-04-10 20:00] VITALS: BP 130/72
[2016-04-10 20:20] VITALS: BP 130/72
[2016-04-11] MEDS: HYDROMORPHONE INJ 2 MG/ML DISP.SYRIN IV PRN ×6 (00:17→20:54)
[2016-04-11 04:00] VITALS: BP 133/90
[2016-04-11 04:33] VITALS: BP 129/66
[2016-04-11 06:58] LABS: BASOPHILS # (AUTO) 0.1 /CMM (0.0-0.2); BASOPHILS % (AUTO) 0.5 % (0.0-2.0); DIFF TOTAL % 100 %; EOSINOPHILS # (AUTO) 0.6 /CMM (0.0-0.7); EOSINOPHILS % (AUTO) 6.2 % (0.0-6.0); HEMATOCRIT 34 % (39-51); HEMOGLOBIN 10.5 g/dL (13.5-17.5); LYMPHOCYTES # (AUTO) 2.6 /CMM (0.8-4.8); LYMPHOCYTES % (AUTO) 26.6 % (20.0-44.0); MEAN CORPUSCULAR HEMOGLOBIN 22 PG (26.0-33.0); MEAN CORPUSCULAR HGB CONC 31 g/dl (31.0-36.0); MEAN CORPUSCULAR VOLUME 72 fL (80-96); MONOCYTES # (AUTO) 0.8 /CMM (0.1-1.30); MONOCYTES % (AUTO) 7.7 % (2.0-12.0); NEUTROPHILS # (AUTO) 5.8 /CMM (1.8-8.9); PLATELET COUNT (AUTO) 431 /CMM (150-450); RED BLOOD CELL COUNT(AUTO) 4.69 MIL/uL (4.5-6.0); WHITE BLOOD COUNT (AUTO) 9.9 K/uL (4.3-11.0)
[2016-04-11 07:33] LABS: CALCIUM, SERUM 8.7 mg/dL (8.5-10.1); CREATININE 1.7 mg/dL (0.6-1.3)
[2016-04-11] MEDS: MUPIROCIN OINT 2% 22 GM TUBE SCH ×2 (09:00→21:11)
[2016-04-11] MEDS: DOCUSATE SODIUM 100 MG CAPSULE PO SCH ×2 (09:00→17:00)
[2016-04-11] MEDS: HYDROGEL DRESSING 90 GM TUBE TP SCH (09:00)
[2016-04-11] MEDS: PANTOPRAZOLE 40 MG TABLET.DR PO SCH (09:05)
[2016-04-11] MEDS: DIAZEPAM 5 MG TABLET PO SCH ×2 (09:05→16:34)
[2016-04-11] MEDS: COLISTIMETHATE SODIUM 150 MG in IV NS 0.9% 50 ML IV SCH ×2 (09:05→18:05)
[2016-04-11] MEDS: LINEZOLID 600 MG TABLET PO SCH ×2 (09:05→21:10)
[2016-04-11] MEDS: LACTOBACILLUS RHAMNOSUS GG 1 EACH CAP.SPRINK PO SCH ×2 (09:05→16:34)
[2016-04-11 09:57] LABS: ANISOCYTOSIS 2+; BAND % (MANUAL) 1 % (0.0-5.0); EOSINOPHILS % (MANUAL) 8 % (0-4); LYMPHOCYTES % (MANUAL) 29 % (16-48); MICROCYTOSIS 2+; PLATELET ESTIMATE INCREASED
[2016-04-11 09:58] LABS: HYPOCHROMASIA 1+
[2016-04-11] MEDS ORDERED: Magnesium 1GM/D5W 100ML PREMIX PIGGYBACK IV ONE (11:30)
[2016-04-11] MEDS ORDERED: Magnesium 1 GM/2 ML VIAL IV ONE (11:30)
[2016-04-11 12:00] VITALS: BP 115/71
[2016-04-11] MEDS: Magnesium 1GM/D5W 100ML PREMIX 100 ML IV SCH ×4 (12:13→15:11)
[2016-04-11] MEDS ORDERED: POTASSIUM CHLORIDE 10 MEQ TABLET.SA PO SCH (13:00)
[2016-04-11 20:00] VITALS: BP 151/88
[2016-04-12] MEDS: HYDROMORPHONE INJ 2 MG/ML DISP.SYRIN IV PRN ×5 (02:03→18:17)
[2016-04-12 04:00] VITALS: BP 149/93
[2016-04-12 04:06] VITALS: BP 149/93
[2016-04-12 07:08] LABS: CALCIUM, SERUM 9.1 mg/dL (8.5-10.1); CREATININE 1.9 mg/dL (0.6-1.3); POTASSIUM 2.9 mmol/L (3.5-5.1)
[2016-04-12 08:00] VITALS: BP 141/84
[2016-04-12 08:20] LABS: KETONES,URINE NEGATIVE (NEGATIVE); LEUKOCYTE ESTERASE ,URINE 1+ (NEGATIVE)
[2016-04-12 08:23] LABS: ADD UA MICROSCOPIC YES
[2016-04-12 08:48] LABS: ADD URINE CULTURE YES
[2016-04-12] MEDS: DOCUSATE SODIUM 100 MG CAPSULE PO SCH ×2 (09:00→16:31)
[2016-04-12] MEDS ORDERED: IV NS 0.9% 1,000 ML BAG IV ONE (09:30)
[2016-04-12] MEDS: COLISTIMETHATE SODIUM 150 MG in IV NS 0.9% 50 ML IV SCH (09:42)
[2016-04-12] MEDS: PANTOPRAZOLE 40 MG TABLET.DR PO SCH (09:42)
[2016-04-12] MEDS: LINEZOLID 600 MG TABLET PO SCH (09:42)
[2016-04-12] MEDS: LACTOBACILLUS RHAMNOSUS GG 1 EACH CAP.SPRINK PO SCH ×2 (09:42→17:09)
[2016-04-12] MEDS: DIAZEPAM 5 MG TABLET PO SCH ×2 (09:42→17:09)
[2016-04-12] MEDS: MUPIROCIN OINT 2% 22 GM TUBE SCH (09:45)
[2016-04-12] MEDS: HYDROGEL DRESSING 90 GM TUBE TP SCH (09:46)
[2016-04-12 09:50] LABS: CREATININE, URINE 85.6 MG/DL (30.0-125.0); URINE TOTAL PROTEIN 147.8 mg/dL (0-11.9)
[2016-04-12] MEDS ORDERED: IV NS 0.9% 1,000 ML ONE (11:36)
[2016-04-12] MEDS ORDERED: IV SET PRIMARY PUMP SET 1 EA INFUS.SET MC ONE (11:37)
[2016-04-12] MEDS ORDERED: POTASSIUM CHLORIDE 20 MEQ TAB.PRT.SR PO ONE (11:41)
[2016-04-12] MEDS ORDERED: SECONDARY IV SET 1 EA INFUS.SET MC ONE (11:51)
[2016-04-12] MEDS: POTASSIUM CL. PREMIX PERIPHER. 50 ML IV SCH ×4 (11:54→17:09)
[2016-04-12 14:00] VITALS: BP 133/85
[2016-04-12 16:00] VITALS: BP 133/85
== END 2016-04-12 19:10 | disposition home health service (06) | DRG 503 ==
LOC: MEDSG1 21:20 → TELE1 03-28 19:50 → MEDSG1 04-01 10:48
PROVIDERS: ADMIT Nurse Practitioner Acute Care; ATTEND Nurse Practitioner Acute Care
PROC: 0QBL0ZZ Excision of Right Tarsal, Open Approach (ICD-10-PCS; principal; 2016-03-30 12:00)
PROC: 02HV33Z Insertion of Infusion Device into Superior Vena Cava, Percutaneous Approach (ICD-10-PCS; 2016-04-01)
PROC: B548ZZA Ultrasonography of Superior Vena Cava, Guidance (ICD-10-PCS; 2016-04-01)
PROC: 05H533Z Insertion of Infusion Device into Right Subclavian Vein, Percutaneous Approach (ICD-10-PCS; 2016-04-09)
DX: M86.171 Other acute osteomyelitis, right ankle and foot (principal); N17.0 Acute kidney failure with tubular necrosis; L89.614 Pressure ulcer of right heel, stage 4; L89.314 Pressure ulcer of right buttock, stage 4; G82.20 Paraplegia, unspecified; N39.0 Urinary tract infection, site not specified; E44.1 Mild protein-calorie malnutrition; E11.52 Type 2 diabetes mellitus with diabetic peripheral angiopathy with gangrene; M86.671 Other chronic osteomyelitis, right ankle and foot; V89.2XXS Person injured in unspecified motor-vehicle accident, traffic, sequela; E66.9 Obesity, unspecified; I10 Essential (primary) hypertension; Z87.440 Personal history of urinary (tract) infections; Z87.891 Personal history of nicotine dependence; Z93.3 Colostomy status; E83.42 Hypomagnesemia; E66.01 Morbid (severe) obesity due to excess calories; E87.6 Hypokalemia; Z88.0 Allergy status to penicillin; L98.9 Disorder of the skin and subcutaneous tissue, unspecified; Z68.31 Body mass index [BMI] 31.0-31.9, adult; E88.09 Other disorders of plasma-protein metabolism, not elsewhere classified; Z22.322 Carrier or suspected carrier of Methicillin resistant Staphylococcus aureus; B96.4 Proteus (mirabilis) (morganii) as the cause of diseases classified elsewhere; B95.2 Enterococcus as the cause of diseases classified elsewhere; K59.00 Constipation, unspecified; S81.802A Unspecified open wound, left lower leg, initial encounter; S81.801A Unspecified open wound, right lower leg, initial encounter; L89.522 Pressure ulcer of left ankle, stage 2; G89.4 Chronic pain syndrome
CPT/HCPCS: 36415; 36569; 73600-TC; 74000-TC; 80048-TC; 80053-TC; 80061-TC; 81000-TC; 82436-TC; 82570-TC; 83735-TC; 83935-TC; 84100-TC; 84133-TC; 84155-TC; 84300-TC; 84439-TC; 84443-TC; 85025-TC; 85652-TC; 87040-TC; 87081-TC; 87086-TC; 87186-TC; 88305-TC; 88311-TC; 88312-TC; A4216; A6209; A6248; A6253; A6402; A6403; A6407; C1751; J0770; J1170; J2250; J3010; J3475; J3480; J3490; J7030; J7040; J7050; Z7610

== ENCOUNTER 2016-05-30 13:53 | Inpatient (IN) | payer MEDICARE ==
[~2016-05-30] VITALS: Ht 190.5 cm; Wt 114.3 kg
[~2016-05-30 13:53] MED LIST changes: -COLI150V IJ
[2016-05-30 15:30] VITALS: BP 124/67
[2016-05-30] MEDS ORDERED: VANCOMYCIN 1.5 GM in IV D5W 500 ML IV ONE (16:00)
[2016-05-30] MEDS ORDERED: ZOLPIDEM TARTRATE 5 MG TABLET PO PRN (16:00)
[2016-05-30] MEDS ORDERED: ONDANSETRON HCL/PF 4 MG/2 ML VIAL IVP PRN (16:00)
[2016-05-30] MEDS ORDERED: ZOLPIDEM TARTRATE 10 MG TABLET PO PRN (16:30)
[2016-05-30 16:52] LABS: BASOPHILS % (AUTO) 0.1 % (0.0-2.0); DIFF TOTAL % 100 %; EOSINOPHILS # (AUTO) 0.2 /CMM (0.0-0.7); EOSINOPHILS % (AUTO) 1.7 % (0.0-6.0); HEMATOCRIT 32 % (39-51); HEMOGLOBIN 10.1 g/dL (13.5-17.5); LYMPHOCYTES # (AUTO) 1.6 /CMM (0.8-4.8); MEAN CORPUSCULAR HEMOGLOBIN 23 PG (26.0-33.0); MEAN CORPUSCULAR HGB CONC 32 g/dl (31.0-36.0); MEAN CORPUSCULAR VOLUME 72 fL (80-96); MONOCYTES # (AUTO) 0.9 /CMM (0.1-1.30); NEUTROPHILS # (AUTO) 11.6 /CMM (1.8-8.9); NEUTROPHILS % (AUTO) 81.2 % (43.0-81.0); PLATELET COUNT (AUTO) 477 /CMM (150-450); RED BLOOD CELL COUNT(AUTO) 4.42 MIL/uL (4.5-6.0); WHITE BLOOD COUNT (AUTO) 14.3 K/uL (4.3-11.0)
[2016-05-30] MEDS ORDERED: DIAZEPAM 10 MG TABLET PO SCH (17:00)
[2016-05-30] MEDS ORDERED: MEROPENEM 1 G in IV NS 0.9% 100 ML IV ONE (17:00)
[2016-05-30 17:08] LABS: CALCIUM, SERUM 8.7 mg/dL (8.5-10.1); CREATININE 1.3 mg/dL (0.6-1.3); POTASSIUM 3.3 mmol/L (3.5-5.1)
[2016-05-30 17:12] LABS: BILIRUBIN,TOTAL 0.5 mg/dL (0.2-1.0); PHOSPHORUS 2.7 mg/dL (2.5-4.9); TOTAL PROTEIN, SERUM 8.7 g/dL (6.4-8.2)
[2016-05-30] MEDS ORDERED: POTASSIUM CHLORIDE 20 MEQ TAB.PRT.SR PO ONE (18:00)
[2016-05-30] MEDS ORDERED: IV SET PRIMARY PUMP SET 1 EA INFUS.SET MC ONE (18:13)
[2016-05-30] MEDS ORDERED: FEE PK DOSING 1 MIN EA MC ONE (18:27)
[2016-05-30] MEDS: DIAZEPAM 5 MG TABLET PO SCH (18:34)
[2016-05-30] MEDS: MAGNESIUM OXIDE 400 MG TABLET PO SCH (18:39)
[2016-05-30] MEDS: HYDROMORPHONE INJ 2 MG/ML DISP.SYRIN IV PRN ×2 (18:39→22:21)
[2016-05-30] MEDS: LACTOBACILLUS RHAMNOSUS GG 1 EACH CAP.SPRINK PO SCH (18:39)
[2016-05-30] MEDS: ENOXAPARIN SODIUM 40 MG/0.4 ML DISP.SYRIN SQ SCH (18:48)
[2016-05-30] MEDS ORDERED: SECONDARY IV SET 1 EA INFUS.SET MC ONE ×2 (19:50→21:53)
[2016-05-30] MEDS: VANCOMYCIN 1.25 GM in IV D5W 500 ML IV SCH (19:58)
[2016-05-30 20:00] VITALS: BP 144/62
[2016-05-30] MEDS: ACETAMINOPHEN 325 MG TABLET PO PRN (20:49)
[2016-05-30] MEDS: MEROPENEM 1 G in IV NS 0.9% 100 ML IV SCH (22:01)
[2016-05-31] MEDS: HYDROMORPHONE INJ 2 MG/ML DISP.SYRIN IV PRN ×6 (02:55→21:02)
[2016-05-31 04:00] VITALS: BP 137/52
[2016-05-31] MEDS: MEROPENEM 1 G in IV NS 0.9% 100 ML IV SCH ×3 (05:30→20:16)
[2016-05-31 06:47] LABS: BASOPHILS % (AUTO) 0.3 % (0.0-2.0); DIFF TOTAL % 100 %; EOSINOPHILS # (AUTO) 0.2 /CMM (0.0-0.7); EOSINOPHILS % (AUTO) 1.5 % (0.0-6.0); HEMATOCRIT 28 % (39-51); HEMOGLOBIN 8.8 g/dL (13.5-17.5); LYMPHOCYTES # (AUTO) 1.4 /CMM (0.8-4.8); LYMPHOCYTES % (AUTO) 10.9 % (20.0-44.0); MEAN CORPUSCULAR HEMOGLOBIN 23 PG (26.0-33.0); MEAN CORPUSCULAR HGB CONC 31 g/dl (31.0-36.0); MEAN CORPUSCULAR VOLUME 73 fL (80-96); MONOCYTES # (AUTO) 1.1 /CMM (0.1-1.30); MONOCYTES % (AUTO) 8.4 % (2.0-12.0); NEUTROPHILS # (AUTO) 10.4 /CMM (1.8-8.9); NEUTROPHILS % (AUTO) 78.9 % (43.0-81.0); PLATELET COUNT (AUTO) 396 /CMM (150-450); RED BLOOD CELL COUNT(AUTO) 3.89 MIL/uL (4.5-6.0); WHITE BLOOD COUNT (AUTO) 13.2 K/uL (4.3-11.0)
[2016-05-31 07:02] LABS: THYROID STIMULATING HORMONE 0.705 uIU/mL (0.358-3.74)
[2016-05-31 07:12] LABS: ALBUMIN 2.4 g/dL (3.4-5.0); BILIRUBIN,TOTAL 0.5 mg/dL (0.2-1.0); CALCIUM, SERUM 7.9 mg/dL (8.5-10.1); CREATININE 1.2 mg/dL (0.6-1.3); PHOSPHORUS 2.6 mg/dL (2.5-4.9); POTASSIUM 3.3 mmol/L (3.5-5.1); TOTAL PROTEIN, SERUM 7.6 g/dL (6.4-8.2)
[2016-05-31] MEDS: VANCOMYCIN 1.25 GM in IV D5W 500 ML IV SCH ×2 (07:35→20:14)
[2016-05-31] MEDS: PANTOPRAZOLE 40 MG TABLET.DR PO SCH (07:35)
[2016-05-31] MEDS: ACETAMINOPHEN 325 MG TABLET PO PRN ×2 (07:50→20:14)
[2016-05-31 08:00] VITALS: BP 122/59
[2016-05-31 08:02] LABS: ERYTHROCYTE SEDIMENTATION RATE > 140 MM/HR (0-15)
[2016-05-31] MEDS: LACTOBACILLUS RHAMNOSUS GG 1 EACH CAP.SPRINK PO SCH ×2 (08:13→18:14)
[2016-05-31] MEDS: DIAZEPAM 5 MG TABLET PO SCH ×2 (08:13→18:14)
[2016-05-31] MEDS: MAGNESIUM OXIDE 400 MG TABLET PO SCH ×3 (08:13→18:14)
[2016-05-31 09:43] LABS: ANISOCYTOSIS 3+; BAND % (MANUAL) 3 % (0.0-5.0); EOSINOPHILS % (MANUAL) 1 % (0-4); HYPOCHROMASIA 2+; LYMPHOCYTES % (MANUAL) 8 % (16-48); MICROCYTOSIS 2+; PLATELET ESTIMATE INCREASED
[2016-05-31] MEDS ORDERED: POTASSIUM CHLORIDE 20 MEQ TAB.PRT.SR PO SCH (11:00)
[2016-05-31] MEDS: IV NS 0.9% 1,000 ML IV PRN (12:37)
[2016-05-31 16:00] VITALS: BP 135/76
[2016-05-31] MEDS ORDERED: POLYETHYLENE GLYCOL 3350 17 GM POWD.PACK PO PRN (16:00)
[2016-05-31] MEDS: HYDROGEL DRESSING 90 GM TUBE TP SCH (16:47)
[2016-05-31] MEDS: DOCUSATE SODIUM 100 MG CAPSULE PO SCH (17:00)
[2016-05-31 20:00] VITALS: BP 118/53
[2016-05-31] MEDS: ENOXAPARIN SODIUM 40 MG/0.4 ML DISP.SYRIN SQ SCH (20:20)
[2016-06-01] MEDS: HYDROMORPHONE INJ 2 MG/ML DISP.SYRIN IV PRN ×6 (00:30→20:25)
[2016-06-01 04:00] VITALS: BP 118/48
[2016-06-01] MEDS: MEROPENEM 1 G in IV NS 0.9% 100 ML IV SCH ×3 (05:30→20:26)
[2016-06-01 06:49] LABS: CALCIUM, SERUM 8.2 mg/dL (8.5-10.1); CREATININE 0.9 mg/dL (0.6-1.3); POTASSIUM 3.5 mmol/L (3.5-5.1)
[2016-06-01 06:53] LABS: INR 1.05 (0.87-1.13); PROTHROMBIN TIME 11.3 SECS (9.5-12.7)
[2016-06-01 08:00] VITALS: BP 108/54
[2016-06-01] MEDS: HYDROGEL DRESSING 90 GM TUBE TP SCH (08:39)
[2016-06-01] MEDS: VANCOMYCIN 1.25 GM in IV D5W 500 ML IV SCH ×2 (08:47→21:10)
[2016-06-01] MEDS: PANTOPRAZOLE 40 MG TABLET.DR PO SCH (08:48)
[2016-06-01] MEDS: MAGNESIUM OXIDE 400 MG TABLET PO SCH ×3 (08:48→16:39)
[2016-06-01] MEDS: DIAZEPAM 5 MG TABLET PO SCH ×2 (08:48→16:39)
[2016-06-01] MEDS: FLUCONAZOLE (100 MG) 100 MG TABLET PO SCH (08:48)
[2016-06-01] MEDS: CYANOCOBALAMIN 1,000 MCG/ML VIAL IM SCH (08:50)
[2016-06-01] MEDS: LACTOBACILLUS RHAMNOSUS GG 1 EACH CAP.SPRINK PO SCH ×2 (08:50→16:39)
[2016-06-01] MEDS: DOCUSATE SODIUM 100 MG CAPSULE PO SCH ×2 (09:00→16:55)
[2016-06-01] MEDS ORDERED: CYANOCOBALAMIN 500 MCG TABLET PO SCH (09:00)
[2016-06-01 10:26] LABS: HIV-1 p24 ANTIGEN NON REACTIVE (NONREACTIVE); HIV-1/2 ANTIBODY NON REACTIVE (NONREACTIVE)
[2016-06-01] MEDS ORDERED: Z GUARD REMEDY 2 OZ OINT TP PRN (11:00)
[2016-06-01] MEDS: Z GUARD REMEDY 2 OZ OINT TP SCH (11:52)
[2016-06-01] MEDS: IV NS 0.9% 1,000 ML IV PRN (12:41)
[2016-06-01] MEDS ORDERED: SECONDARY IV SET 1 EA INFUS.SET MC ONE (14:50)
[2016-06-01] MEDS: SOD FERRIC GLUC 125 MG in IV NS 0.9% 100 ML IV SCH (14:53)
[2016-06-01 16:00] VITALS: BP 125/60
[2016-06-01] MEDS: FOLIC ACID 1 MG TABLET PO SCH (18:13)
[2016-06-01 20:00] VITALS: BP 103/50
[2016-06-01] MEDS: ENOXAPARIN SODIUM 40 MG/0.4 ML DISP.SYRIN SQ SCH (20:34)
[2016-06-01 20:36] LABS: KETONES,URINE NEGATIVE (NEGATIVE); LEUKOCYTE ESTERASE ,URINE 3+ (NEGATIVE)
[2016-06-01 20:37] LABS: ADD UA MICROSCOPIC YES
[2016-06-01 20:51] LABS: ADD URINE CULTURE YES; WBC,URINE 21-50 /HPF (0-3)
[2016-06-02] MEDS: HYDROMORPHONE INJ 2 MG/ML DISP.SYRIN IV PRN ×7 (03:32→22:53)
[2016-06-02 04:00] VITALS: BP_SYST 115; BP_SYST 121; BP_DIAS 53; BP_DIAS 60
[2016-06-02] MEDS: VANCOMYCIN 1 GM in IV D5W 250 ML IV SCH ×3 (04:56→21:05)
[2016-06-02] MEDS: MEROPENEM 1 G in IV NS 0.9% 100 ML IV SCH ×3 (04:56→21:05)
[2016-06-02 07:31] LABS: CREATININE 1.1 mg/dL (0.6-1.3)
[2016-06-02 08:00] VITALS: BP 110/70
[2016-06-02] MEDS: FLUCONAZOLE (100 MG) 100 MG TABLET PO SCH (09:29)
[2016-06-02] MEDS: DIAZEPAM 5 MG TABLET PO SCH ×2 (09:29→16:50)
[2016-06-02] MEDS: DOCUSATE SODIUM 100 MG CAPSULE PO SCH ×2 (09:29→16:50)
[2016-06-02] MEDS: FOLIC ACID 1 MG TABLET PO SCH (09:29)
[2016-06-02] MEDS: LACTOBACILLUS RHAMNOSUS GG 1 EACH CAP.SPRINK PO SCH ×2 (09:30→16:50)
[2016-06-02] MEDS: IV NS 0.9% 1,000 ML IV PRN (09:30)
[2016-06-02] MEDS: MAGNESIUM OXIDE 400 MG TABLET PO SCH ×3 (09:30→16:50)
[2016-06-02] MEDS: PANTOPRAZOLE 40 MG TABLET.DR PO SCH (09:31)
[2016-06-02] MEDS: CYANOCOBALAMIN 1,000 MCG/ML VIAL IM SCH (09:35)
[2016-06-02] MEDS: Z GUARD REMEDY 2 OZ OINT TP SCH (09:35)
[2016-06-02] MEDS: HYDROGEL DRESSING 90 GM TUBE TP SCH (09:35)
[2016-06-02] MEDS: CADEXOMER IODINE 40 GM TUBE TP SCH (09:46)
[2016-06-02] MEDS: POTASSIUM CHLORIDE 20 MEQ TAB.PRT.SR PO SCH ×3 (11:13→14:19)
[2016-06-02 11:15] LABS: *SPE ALBUMIN 2.7 g/dL (2.9-4.4)
[2016-06-02] MEDS: SOD FERRIC GLUC 125 MG in IV NS 0.9% 100 ML IV SCH (14:20)
[2016-06-02 16:00] VITALS: BP 116/66
[2016-06-02 20:00] VITALS: BP 121/63
[2016-06-02] MEDS: ENOXAPARIN SODIUM 40 MG/0.4 ML DISP.SYRIN SQ SCH (21:12)
[2016-06-03 04:00] VITALS: BP 116/50
[2016-06-03] MEDS: HYDROMORPHONE INJ 2 MG/ML DISP.SYRIN IV PRN ×7 (04:01→22:23)
[2016-06-03] MEDS: IV NS 0.9% 1,000 ML IV PRN (04:02)
[2016-06-03] MEDS: MEROPENEM 1 G in IV NS 0.9% 100 ML IV SCH ×3 (04:04→21:52)
[2016-06-03 04:18] LABS: CALCIUM, SERUM 8.3 mg/dL (8.5-10.1); CREATININE 0.9 mg/dL (0.6-1.3); POTASSIUM 3.5 mmol/L (3.5-5.1)
[2016-06-03] MEDS: VANCOMYCIN 1 GM in IV D5W 250 ML IV SCH ×3 (05:22→21:54)
[2016-06-03 08:00] VITALS: BP 110/51
[2016-06-03] MEDS: PANTOPRAZOLE 40 MG TABLET.DR PO SCH (08:43)
[2016-06-03] MEDS: DIAZEPAM 5 MG TABLET PO SCH ×2 (08:43→16:18)
[2016-06-03] MEDS: FLUCONAZOLE (100 MG) 100 MG TABLET PO SCH (08:44)
[2016-06-03] MEDS: MAGNESIUM OXIDE 400 MG TABLET PO SCH ×3 (08:44→16:18)
[2016-06-03] MEDS: LACTOBACILLUS RHAMNOSUS GG 1 EACH CAP.SPRINK PO SCH ×2 (08:44→16:18)
[2016-06-03] MEDS: FOLIC ACID 1 MG TABLET PO SCH (08:45)
[2016-06-03] MEDS: CYANOCOBALAMIN 1,000 MCG/ML VIAL IM SCH (08:45)
[2016-06-03] MEDS: DOCUSATE SODIUM 100 MG CAPSULE PO SCH ×3 (08:45→16:17)
[2016-06-03] MEDS: CADEXOMER IODINE 40 GM TUBE TP SCH (08:49)
[2016-06-03] MEDS: HYDROGEL DRESSING 90 GM TUBE TP SCH (08:49)
[2016-06-03] MEDS: Z GUARD REMEDY 2 OZ OINT TP SCH (09:09)
[2016-06-03 12:10] LABS: HEPATITIS C VIRUS AB <0.1 s/co ratio (0.0-0.9)
[2016-06-03] MEDS: SOD FERRIC GLUC 125 MG in IV NS 0.9% 100 ML IV SCH (15:13)
[2016-06-03 16:00] VITALS: BP_SYST 120; BP_DIAS 62; BP_DIAS 65
[2016-06-03 20:00] VITALS: BP 120/70
[2016-06-03] MEDS: ENOXAPARIN SODIUM 40 MG/0.4 ML DISP.SYRIN SQ SCH (21:55)
[2016-06-04 01:07] LABS: HEPATITIS Be AG Negative (Negative)
[2016-06-04] MEDS: HYDROMORPHONE INJ 2 MG/ML DISP.SYRIN IV PRN ×8 (01:26→22:46)
[2016-06-04 04:00] VITALS: BP 101/62
[2016-06-04] MEDS: IV NS 0.9% 1,000 ML IV PRN (05:15)
[2016-06-04] MEDS: MEROPENEM 1 G in IV NS 0.9% 100 ML IV SCH ×2 (05:16→12:03)
[2016-06-04] MEDS ORDERED: SECONDARY IV SET 1 EA INFUS.SET MC ONE (05:18)
[2016-06-04] MEDS: VANCOMYCIN 1 GM in IV D5W 250 ML IV SCH ×3 (05:24→21:36)
[2016-06-04] MEDS: PANTOPRAZOLE 40 MG TABLET.DR PO SCH ×2 (06:30→09:27)
[2016-06-04 07:11] LABS: BASOPHILS % (AUTO) 0.3 % (0.0-2.0); DIFF TOTAL % 100 %; EOSINOPHILS # (AUTO) 0.4 /CMM (0.0-0.7); EOSINOPHILS % (AUTO) 5.9 % (0.0-6.0); HEMATOCRIT 26 % (39-51); LYMPHOCYTES # (AUTO) 1.5 /CMM (0.8-4.8); LYMPHOCYTES % (AUTO) 23.6 % (20.0-44.0); MEAN CORPUSCULAR HEMOGLOBIN 23 PG (26.0-33.0); MEAN CORPUSCULAR HGB CONC 31 g/dl (31.0-36.0); MEAN CORPUSCULAR VOLUME 73 fL (80-96); MONOCYTES # (AUTO) 0.8 /CMM (0.1-1.30); MONOCYTES % (AUTO) 12.6 % (2.0-12.0); NEUTROPHILS # (AUTO) 3.6 /CMM (1.8-8.9); NEUTROPHILS % (AUTO) 57.6 % (43.0-81.0); PLATELET COUNT (AUTO) 475 /CMM (150-450); RED BLOOD CELL COUNT(AUTO) 3.55 MIL/uL (4.5-6.0); WHITE BLOOD COUNT (AUTO) 6.2 K/uL (4.3-11.0)
[2016-06-04 07:31] LABS: CALCIUM, SERUM 8.2 mg/dL (8.5-10.1); CREATININE 0.9 mg/dL (0.6-1.3); POTASSIUM 3.6 mmol/L (3.5-5.1)
[2016-06-04 08:00] VITALS: BP 105/57
[2016-06-04 08:41] LABS: ANISOCYTOSIS 2+; BAND % (MANUAL) 5 % (0.0-5.0); EOSINOPHILS % (MANUAL) 3 % (0-4); HYPOCHROMASIA 1+; LYMPHOCYTES % (MANUAL) 15 % (16-48); MICROCYTOSIS 2+; PLATELET ESTIMATE INCREASED
[2016-06-04 08:42] LABS: POLYCHROMASIA FEW; SPHEROCYTES 1+
[2016-06-04] MEDS: Z GUARD REMEDY 2 OZ OINT TP SCH (09:00)
[2016-06-04] MEDS: CADEXOMER IODINE 40 GM TUBE TP SCH (09:00)
[2016-06-04] MEDS: HYDROGEL DRESSING 90 GM TUBE TP SCH (09:00)
[2016-06-04] MEDS: MAGNESIUM OXIDE 400 MG TABLET PO SCH ×3 (09:27→16:56)
[2016-06-04] MEDS: FLUCONAZOLE (100 MG) 100 MG TABLET PO SCH (09:27)
[2016-06-04] MEDS: CYANOCOBALAMIN 1,000 MCG/ML VIAL IM SCH (09:27)
[2016-06-04] MEDS: DIAZEPAM 5 MG TABLET PO SCH ×2 (09:27→16:56)
[2016-06-04] MEDS: LACTOBACILLUS RHAMNOSUS GG 1 EACH CAP.SPRINK PO SCH ×2 (09:27→16:57)
[2016-06-04] MEDS: FOLIC ACID 1 MG TABLET PO SCH (09:27)
[2016-06-04] MEDS: DOCUSATE SODIUM 100 MG CAPSULE PO SCH ×2 (09:27→16:56)
[2016-06-04 12:00] VITALS: BP 110/62
[2016-06-04] MEDS: MEROPENEM 500 MG in IV NS 0.9% 50 ML IV SCH ×2 (13:00→20:41)
[2016-06-04] MEDS: SOD FERRIC GLUC 125 MG in IV NS 0.9% 100 ML IV SCH (15:37)
[2016-06-04 16:00] VITALS: BP 118/67
[2016-06-04 20:00] VITALS: BP 113/59
[2016-06-04] MEDS: ENOXAPARIN SODIUM 40 MG/0.4 ML DISP.SYRIN SQ SCH (20:42)
[2016-06-05] MEDS: IV NS 0.9% 1,000 ML IV PRN ×2 (00:12→18:12)
[2016-06-05 04:00] VITALS: BP 111/61
[2016-06-05] MEDS: HYDROMORPHONE INJ 2 MG/ML DISP.SYRIN IV PRN ×7 (04:50→23:59)
[2016-06-05] MEDS: MEROPENEM 500 MG in IV NS 0.9% 50 ML IV SCH ×3 (05:02→20:49)
[2016-06-05] MEDS: VANCOMYCIN 1 GM in IV D5W 250 ML IV SCH ×3 (05:35→21:20)
[2016-06-05 08:00] VITALS: BP 104/53
[2016-06-05 08:06] LABS: CALCIUM, SERUM 7.9 mg/dL (8.5-10.1); CREATININE 0.8 mg/dL (0.6-1.3); POTASSIUM 3.6 mmol/L (3.5-5.1)
[2016-06-05] MEDS: DIAZEPAM 5 MG TABLET PO SCH ×2 (08:36→17:36)
[2016-06-05] MEDS: LACTOBACILLUS RHAMNOSUS GG 1 EACH CAP.SPRINK PO SCH ×2 (08:36→17:37)
[2016-06-05] MEDS: FLUCONAZOLE (100 MG) 100 MG TABLET PO SCH (08:36)
[2016-06-05] MEDS: FOLIC ACID 1 MG TABLET PO SCH (08:36)
[2016-06-05] MEDS: MAGNESIUM OXIDE 400 MG TABLET PO SCH ×3 (08:36→17:37)
[2016-06-05] MEDS: CYANOCOBALAMIN 1,000 MCG/ML VIAL IM SCH (08:37)
[2016-06-05] MEDS: DOCUSATE SODIUM 100 MG CAPSULE PO SCH ×2 (08:38→17:00)
[2016-06-05] MEDS: CADEXOMER IODINE 40 GM TUBE TP SCH (08:41)
[2016-06-05] MEDS: Z GUARD REMEDY 2 OZ OINT TP SCH (08:41)
[2016-06-05] MEDS: HYDROGEL DRESSING 90 GM TUBE TP SCH (08:41)
[2016-06-05 12:24] LABS: HEPATITIS Be AB Negative (Negative)
[2016-06-05] MEDS ORDERED: SECONDARY IV SET 1 EA INFUS.SET MC ONE (14:47)
[2016-06-05] MEDS: SOD FERRIC GLUC 125 MG in IV NS 0.9% 100 ML IV SCH (14:54)
[2016-06-05 16:00] VITALS: BP 122/61
[2016-06-05 16:35] VITALS: BP 122/61
[2016-06-05 20:00] VITALS: BP 105/58
[2016-06-05] MEDS: ENOXAPARIN SODIUM 40 MG/0.4 ML DISP.SYRIN SQ SCH (20:51)
[2016-06-06] VITALS (7 sets, daily range): BP systolic 118–130; BP diastolic 72–77
[2016-06-06] MEDS: HYDROMORPHONE INJ 2 MG/ML DISP.SYRIN IV PRN ×7 (04:05→23:11)
[2016-06-06] MEDS: MEROPENEM 500 MG in IV NS 0.9% 50 ML IV SCH ×2 (04:21→12:56)
[2016-06-06] MEDS: VANCOMYCIN 1 GM in IV D5W 250 ML IV SCH ×3 (05:02→21:11)
[2016-06-06 05:39] LABS: BASOPHILS % (AUTO) 0.4 % (0.0-2.0); DIFF TOTAL % 100 %; EOSINOPHILS # (AUTO) 0.4 /CMM (0.0-0.7); EOSINOPHILS % (AUTO) 4.3 % (0.0-6.0); HEMATOCRIT 30 % (39-51); HEMOGLOBIN 9.2 g/dL (13.5-17.5); LYMPHOCYTES % (AUTO) 19.9 % (20.0-44.0); MEAN CORPUSCULAR HEMOGLOBIN 23 PG (26.0-33.0); MEAN CORPUSCULAR HGB CONC 31 g/dl (31.0-36.0); MEAN CORPUSCULAR VOLUME 74 fL (80-96); MONOCYTES # (AUTO) 0.6 /CMM (0.1-1.30); MONOCYTES % (AUTO) 6.1 % (2.0-12.0); NEUTROPHILS # (AUTO) 6.9 /CMM (1.8-8.9); NEUTROPHILS % (AUTO) 69.3 % (43.0-81.0); PLATELET COUNT (AUTO) 584 /CMM (150-450); RED BLOOD CELL COUNT(AUTO) 4.01 MIL/uL (4.5-6.0); WHITE BLOOD COUNT (AUTO) 9.9 K/uL (4.3-11.0)
[2016-06-06 05:54] LABS: ANISOCYTOSIS 3+; CALCIUM, SERUM 8.6 mg/dL (8.5-10.1); CREATININE 0.8 mg/dL (0.6-1.3); EOSINOPHILS % (MANUAL) 4 % (0-4); HYPOCHROMASIA 2+; LYMPHOCYTES % (MANUAL) 23 % (16-48); PHOSPHORUS 2.5 mg/dL (2.5-4.9); PLATELET ESTIMATE INCREASED; POTASSIUM 3.5 mmol/L (3.5-5.1)
[2016-06-06] MEDS: LACTOBACILLUS RHAMNOSUS GG 1 EACH CAP.SPRINK PO SCH ×2 (08:07→18:23)
[2016-06-06] MEDS: PANTOPRAZOLE 40 MG TABLET.DR PO SCH (08:07)
[2016-06-06] MEDS: DIAZEPAM 5 MG TABLET PO SCH ×2 (08:07→18:23)
[2016-06-06] MEDS: FOLIC ACID 1 MG TABLET PO SCH (08:07)
[2016-06-06] MEDS: FLUCONAZOLE (100 MG) 100 MG TABLET PO SCH (08:08)
[2016-06-06] MEDS: MAGNESIUM OXIDE 400 MG TABLET PO SCH ×3 (08:08→18:24)
[2016-06-06] MEDS: CYANOCOBALAMIN 1,000 MCG/ML VIAL IM SCH (08:09)
[2016-06-06] MEDS: Z GUARD REMEDY 2 OZ OINT TP SCH (08:10)
[2016-06-06] MEDS: HYDROGEL DRESSING 90 GM TUBE TP SCH (08:10)
[2016-06-06] MEDS: CADEXOMER IODINE 40 GM TUBE TP SCH (08:11)
[2016-06-06] MEDS: DOCUSATE SODIUM 100 MG CAPSULE PO SCH ×2 (08:11→17:00)
[2016-06-06] MEDS ORDERED: SECONDARY IV SET 1 EA INFUS.SET MC ONE (10:56)
[2016-06-06] MEDS ORDERED: IV SET PRIMARY PUMP SET 1 EA INFUS.SET MC ONE (10:57)
[2016-06-06] MEDS: IV NS 0.9% 1,000 ML IV PRN (11:03)
[2016-06-06] MEDS: Magnesium 1GM/D5W 100ML PREMIX 100 ML IV SCH ×2 (15:17→16:40)
[2016-06-06] MEDS: LEVOFLOXACIN (500MG) 500 MG TABLET PO SCH (18:32)
[2016-06-06] MEDS: ENOXAPARIN SODIUM 40 MG/0.4 ML DISP.SYRIN SQ SCH (21:12)
[2016-06-07] VITALS: BP 118/70
[2016-06-07 04:00] VITALS: BP 108/68
[2016-06-07] MEDS: HYDROMORPHONE INJ 2 MG/ML DISP.SYRIN IV PRN ×5 (04:11→16:47)
[2016-06-07] MEDS: VANCOMYCIN 1 GM in IV D5W 250 ML IV SCH ×2 (05:09→13:00)
[2016-06-07] MEDS: IV NS 0.9% 1,000 ML IV PRN (05:09)
[2016-06-07 06:44] LABS: BASOPHILS % (AUTO) 0.5 % (0.0-2.0); DIFF TOTAL % 100 %; EOSINOPHILS # (AUTO) 0.4 /CMM (0.0-0.7); EOSINOPHILS % (AUTO) 4.5 % (0.0-6.0); HEMATOCRIT 29 % (39-51); MEAN CORPUSCULAR HEMOGLOBIN 23 PG (26.0-33.0); MEAN CORPUSCULAR HGB CONC 31 g/dl (31.0-36.0); MEAN CORPUSCULAR VOLUME 74 fL (80-96); MONOCYTES # (AUTO) 0.3 /CMM (0.1-1.30); MONOCYTES % (AUTO) 3.5 % (2.0-12.0); NEUTROPHILS # (AUTO) 5.4 /CMM (1.8-8.9); NEUTROPHILS % (AUTO) 66.5 % (43.0-81.0); PLATELET COUNT (AUTO) 545 /CMM (150-450); RED BLOOD CELL COUNT(AUTO) 3.98 MIL/uL (4.5-6.0); WHITE BLOOD COUNT (AUTO) 8.1 K/uL (4.3-11.0)
[2016-06-07 07:06] LABS: CALCIUM, SERUM 8.5 mg/dL (8.5-10.1); CREATININE 0.7 mg/dL (0.6-1.3); PHOSPHORUS 3.3 mg/dL (2.5-4.9); POTASSIUM 4.1 mmol/L (3.5-5.1)
[2016-06-07 08:00] VITALS: BP 103/59
[2016-06-07] MEDS: PANTOPRAZOLE 40 MG TABLET.DR PO SCH (08:22)
[2016-06-07] MEDS: LACTOBACILLUS RHAMNOSUS GG 1 EACH CAP.SPRINK PO SCH ×2 (08:22→16:47)
[2016-06-07] MEDS: FOLIC ACID 1 MG TABLET PO SCH (08:22)
[2016-06-07] MEDS: FLUCONAZOLE (100 MG) 100 MG TABLET PO SCH (08:22)
[2016-06-07] MEDS: MAGNESIUM OXIDE 400 MG TABLET PO SCH ×3 (08:23→16:47)
[2016-06-07] MEDS: CYANOCOBALAMIN 1,000 MCG/ML VIAL IM SCH (08:23)
[2016-06-07] MEDS: DIAZEPAM 5 MG TABLET PO SCH ×2 (08:24→16:31)
[2016-06-07] MEDS: DOCUSATE SODIUM 100 MG CAPSULE PO SCH ×2 (08:25→16:28)
[2016-06-07] MEDS: Z GUARD REMEDY 2 OZ OINT TP SCH (08:31)
[2016-06-07] MEDS: HYDROGEL DRESSING 90 GM TUBE TP SCH (08:31)
[2016-06-07] MEDS: CADEXOMER IODINE 40 GM TUBE TP SCH (08:31)
[2016-06-07] MEDS ORDERED: DOXY100C41 PO (11:49)
[2016-06-07] MEDS ORDERED: LEVO750T21 PO (11:49)
[2016-06-07 16:00] VITALS: BP 135/71
[2016-06-07] MEDS: LEVOFLOXACIN (500MG) 500 MG TABLET PO SCH (16:50)
[2016-06-07] MEDS ORDERED: FLU VACC QS 2016-17(36MOS+)/PF 0.5 ML DISP.SYRIN IM ONE (17:00)
== END 2016-06-07 17:05 | disposition short-term general hospital (02) | DRG 871 ==
LOC: MEDSG1 14:58 → TELE1 15:27 → MEDSG1 15:45
PROVIDERS: ADMIT Nurse Practitioner Acute Care; ATTEND Nurse Practitioner Acute Care
PROC: 05H633Z Insertion of Infusion Device into Left Subclavian Vein, Percutaneous Approach (ICD-10-PCS; principal; 2016-05-30)
PROC: 05H533Z Insertion of Infusion Device into Right Subclavian Vein, Percutaneous Approach (ICD-10-PCS; 2016-06-04)
PROC: B546ZZA Ultrasonography of Right Subclavian Vein, Guidance (ICD-10-PCS; 2016-06-04)
DX: A41.9 Sepsis, unspecified organism (principal); L89.324 Pressure ulcer of left buttock, stage 4; L89.314 Pressure ulcer of right buttock, stage 4; E44.1 Mild protein-calorie malnutrition; N39.0 Urinary tract infection, site not specified; G82.20 Paraplegia, unspecified; D68.69 Other thrombophilia; E11.52 Type 2 diabetes mellitus with diabetic peripheral angiopathy with gangrene; L03.116 Cellulitis of left lower limb; L03.115 Cellulitis of right lower limb; L97.419 Non-pressure chronic ulcer of right heel and midfoot with unspecified severity; I10 Essential (primary) hypertension; E66.8 Other obesity; Z87.891 Personal history of nicotine dependence; Z93.3 Colostomy status; E66.01 Morbid (severe) obesity due to excess calories; E87.6 Hypokalemia; E83.42 Hypomagnesemia; K59.00 Constipation, unspecified; D50.9 Iron deficiency anemia, unspecified; D63.8 Anemia in other chronic diseases classified elsewhere; E11.621 Type 2 diabetes mellitus with foot ulcer; G89.4 Chronic pain syndrome; L97.529 Non-pressure chronic ulcer of other part of left foot with unspecified severity; N31.9 Neuromuscular dysfunction of bladder, unspecified; R65.20 Severe sepsis without septic shock; Z16.24 Resistance to multiple antibiotics; Z87.440 Personal history of urinary (tract) infections; L89.899 Pressure ulcer of other site, unspecified stage; Z68.31 Body mass index [BMI] 31.0-31.9, adult
CPT/HCPCS: 36415; 73610-TC; 80048-TC; 80053-TC; 80061-TC; 80202-TC; 81000-TC; 82272-TC; 82728-TC; 82746; 83540-TC; 83735-TC; 84100-TC; 84155; 84165; 84439-TC; 84443-TC; 85025-TC; 85045-TC; 85610-TC; 85652-TC; 85730-TC; 86707; 86803; 87040-TC; 87070-TC; 87081-TC; 87086-TC; 87110-TC; 87186-TC; 87350; 87400; A4216; A4217; A6248; A6402; A6403; C1751; J1170; J1650; J2185; J2916; J3370; J3420; J3475; J7030; J7060; Q2036

== ENCOUNTER 2016-06-23 19:28 | Inpatient (IN) | payer MEDICARE ==
[~2016-06-23] VITALS: Ht 190.5 cm; Wt 115.7 kg
[~2016-06-23 19:28] MED LIST changes: +DOXY100C41 PO; +LEVO750T21 PO; -VANC1PLA9 IV
[2016-06-23 20:00] VITALS: BP 118/61
[2016-06-23] MEDS ORDERED: IV NS 0.9% 1,000 ML BAG IV ONE (20:00)
[2016-06-23] MEDS ORDERED: IV NS 0.9% 1,000 ML IV ONE ×3 (20:00→22:00)
[2016-06-23] MEDS ORDERED: ONDANSETRON HCL/PF 4 MG/2 ML VIAL IVP PRN (20:00)
[2016-06-23] MEDS ORDERED: VANCOMYCIN 1.5 GM in IV D5W 500 ML IV ONE (20:00)
[2016-06-23] MEDS ORDERED: ACETAMINOPHEN 325 MG TABLET PO PRN (20:00)
[2016-06-23] MEDS ORDERED: Z GUARD REMEDY 2 OZ OINT TP PRN (20:00)
[2016-06-23] MEDS ORDERED: ZOLPIDEM TARTRATE 5 MG TABLET PO PRN (20:00)
[2016-06-23 20:30] VITALS: BP 118/61
[2016-06-23] MEDS ORDERED: COLISTIMETHATE SODIUM 150 MG VIAL NEB SCH (21:00)
[2016-06-23] MEDS ORDERED: FEE PK DOSING 1 MIN EA MC ONE (21:12)
[2016-06-23] MEDS ORDERED: IV NS 0.9% 1,000 ML IV PRN ×2 (21:30→22:00)
[2016-06-23] MEDS ORDERED: SECONDARY IV SET 1 EA INFUS.SET MC ONE ×2 (21:34→23:29)
[2016-06-23] MEDS ORDERED: IV SET PRIMARY PUMP SET 1 EA INFUS.SET MC ONE (21:36)
[2016-06-23 21:40] LABS: BASOPHILS % (AUTO) 0.4 % (0.0-2.0); EOSINOPHILS # (AUTO) 0.1 /CMM (0.0-0.7); EOSINOPHILS % (AUTO) 0.6 % (0.0-6.0); HEMATOCRIT 27 % (39-51); LYMPHOCYTES # (AUTO) 1.2 /CMM (0.8-4.8); LYMPHOCYTES % (AUTO) 12.6 % (20.0-44.0); MEAN CORPUSCULAR HEMOGLOBIN 24 PG (26.0-33.0); MEAN CORPUSCULAR HGB CONC 33 g/dl (31.0-36.0); MEAN CORPUSCULAR VOLUME 74 fL (80-96); MONOCYTES # (AUTO) 0.8 /CMM (0.1-1.30); MONOCYTES % (AUTO) 8.2 % (2.0-12.0); NEUTROPHILS # (AUTO) 7.6 /CMM (1.8-8.9); NEUTROPHILS % (AUTO) 78.2 % (43.0-81.0); PLATELET COUNT (AUTO) 308 /CMM (150-450); RDW COEFFICIENT OF VARIATION 21.9 (11.5-15.0); WHITE BLOOD COUNT (AUTO) 9.7 K/uL (4.3-11.0)
[2016-06-23] MEDS: VANCOMYCIN 1 GM in IV D5W 250 ML IV SCH (21:45)
[2016-06-23 21:56] LABS: ANISOCYTOSIS 2+; BASOPHILS % (MANUAL) 0 % (0.0-2.0); EOSINOPHILS % (MANUAL) 0 % (0-4); HYPOCHROMASIA 1+; LYMPHOCYTES % (MANUAL) 20 % (16-48); MONOCYTES % (MANUAL) 7 % (0-11.0); NEUTROPHILS % (MANUAL) 73 (42-76); PLATELET ESTIMATE ADEQUATE
[2016-06-23 22:05] LABS: ALBUMIN 2.5 g/dL (3.4-5.0); BILIRUBIN,TOTAL 0.4 mg/dL (0.2-1.0); CALCIUM, SERUM 8.1 mg/dL (8.5-10.1); MAGNESIUM 1.4 mg/dL (1.8-2.4); PHOSPHORUS 2.6 mg/dL (2.5-4.9); TOTAL PROTEIN, SERUM 6.5 g/dL (6.4-8.2)
[2016-06-23 22:07] LABS: POTASSIUM 2.5 mmol/L (3.5-5.1)
[2016-06-23] MEDS ORDERED: POTASSIUM CHLORIDE 20 MEQ TAB.PRT.SR PO ONE ×2 (23:00→23:32)
[2016-06-23] MEDS ORDERED: Magnesium 1GM/D5W 100ML PREMIX 400 ML IV ONE (23:28)
[2016-06-23] MEDS: Magnesium 1GM/D5W 100ML PREMIX 100 ML IV SCH (23:35)
[2016-06-24] VITALS: BP_SYST 116; BP_SYST 127; BP_DIAS 60; BP_DIAS 64
[2016-06-24] MEDS: Magnesium 1GM/D5W 100ML PREMIX 100 ML IV SCH ×3 (00:40→02:36)
[2016-06-24] MEDS ORDERED: POTASSIUM CHLORIDE 20 MEQ TAB.PRT.SR PO ONE ×3 (02:00→11:10)
--- NOTE | 2016-06-24 02:17 | NUR ---
RN LUCY. ADMISSION. PT DIRECT ADMISSION FROM HOME. PT AWAKE, ALERT, FOLLOW COMMANDS. SCHEDULING REPRESENTATIVE SHOWING S TACH. PT ON ROOM AIR. SAT 96 %. NO ACUTE DISTRESS NOTED. IV LT UPPER ARM MID LINE. 3LS NS BOLUS GIVEN. MULTIPLE WOUND NOTED. PICTURE TAKEN. ATTACHED TO THE FILE HOB ELEVATED. TURN AND REPOSITION Q2H. WILL CONTINUE TO MONITOR VITALS
--- NOTE | 2016-06-24 03:14 | NUR ---
RN NOTE. AM CARE. ORAL CARE, BED BATH GIVEN. LINEN CHANGED.PT ON ROOM AIR. SAT 96 %. NO ACUTE DISTRESS NOTED. TEST FACILITY ENGINEER SHOWING NSR. IV LT UPPER ARM MID LINE. SALINE LOCK. [id number]. WOUND DRESSING DOME. HOB ELEVATED. SUPRAPUBIC CATH INTACT, TURN AND REPOSITION Q2H. WILL CONTINUE TO MONITOR VITALS.
[2016-06-24] MEDS: HYDROMORPHONE INJ 2 MG/ML DISP.SYRIN IV PRN ×5 (03:43→23:13)
[2016-06-24 04:00] VITALS: BP_SYST 112; BP_SYST 120; BP_DIAS 55; BP_DIAS 63
[2016-06-24] MEDS: VANCOMYCIN 1 GM in IV D5W 250 ML IV SCH ×3 (05:16→21:04)
--- NOTE | 2016-06-24 07:45 | NUR ---
ÓSCAR/RN - Initial Notes Received pt in bed, Aox4. No acute distress. Respirations are even and unlabored. Pt medicated with Dilaudid 2mg IVP by overnight cashier nurse. On tele reading ST 120's. Suprapubic catheter noted, draining cloudy urine with sediments. Midline on left upper arm saline locked. Safety and comfort measures in place. Will continue to monitor pt closely.
[2016-06-24 08:00] VITALS: BP 101/60
[2016-06-24] MEDS ORDERED: PANT40TA4 PO (08:21)
[2016-06-24] MEDS ORDERED: TRAM50TA2 PO (08:21)
[2016-06-24] MEDS ORDERED: LACT1CAP72 PO (08:21)
[2016-06-24 08:23] LABS: BASOPHILS % (AUTO) 0.4 % (0.0-2.0); EOSINOPHILS # (AUTO) 0.1 /CMM (0.0-0.7); EOSINOPHILS % (AUTO) 2.3 % (0.0-6.0); HEMATOCRIT 28 % (39-51); HEMOGLOBIN 9.1 g/dL (13.5-17.5); LYMPHOCYTES # (AUTO) 0.9 /CMM (0.8-4.8); LYMPHOCYTES % (AUTO) 17.9 % (20.0-44.0); MEAN CORPUSCULAR HEMOGLOBIN 24 PG (26.0-33.0); MEAN CORPUSCULAR HGB CONC 32 g/dl (31.0-36.0); MEAN CORPUSCULAR VOLUME 75 fL (80-96); MONOCYTES # (AUTO) 0.6 /CMM (0.1-1.30); MONOCYTES % (AUTO) 11.4 % (2.0-12.0); NEUTROPHILS # (AUTO) 3.4 /CMM (1.8-8.9); PLATELET COUNT (AUTO) 274 /CMM (150-450); RED BLOOD CELL COUNT(AUTO) 3.79 MIL/uL (4.5-6.0)
[2016-06-24 08:23] LABS: APPEARANCE,URINE CLOUDY (CLEAR); BILIRUBIN,URINE NEGATIVE (NEGATIVE); BLOOD, URINE 1+ Ery/uL (NEGATIVE); COLOR,URINE YELLOW (YELLOW); KETONES,URINE NEGATIVE (NEGATIVE); LEUKOCYTE ESTERASE ,URINE 3+ (NEGATIVE); NITRITE, URINE POSITIVE (NEGATIVE); PROTEIN,URINE TRACE mg/dl (NEGATIVE); UGLUCOSE NEGATIVE (NEGATIVE); UROBILINOGEN,URINE 0.2 EU/dL (0.2)
[2016-06-24 08:29] LABS: LACTIC ACID 2.3 mmol/L (0.4-2.0)
[2016-06-24 08:32] LABS: ALBUMIN 2.4 g/dL (3.4-5.0); BILIRUBIN,TOTAL 0.2 mg/dL (0.2-1.0); CREATININE 0.9 mg/dL (0.6-1.3); MAGNESIUM 2.2 mg/dL (1.8-2.4); PHOSPHORUS 1.8 mg/dL (2.5-4.9); POTASSIUM 3.6 mmol/L (3.5-5.1); TOTAL PROTEIN, SERUM 6.5 g/dL (6.4-8.2)
[2016-06-24 08:34] LABS: THYROID STIMULATING HORMONE 0.735 uIU/mL (0.358-3.74)
[2016-06-24] MEDS ORDERED: COLISTIMETHATE SODIUM 150 MG VIAL NEB SCH (09:00)
[2016-06-24 09:44] LABS: ADD URINE CULTURE YES; BACTERIA,URINE Few /HPF (None Seen); SQUAMOUS EPITHELIAL CELL,UR Few /HPF (None Seen); WBC,URINE 81-100 /HPF (0-3)
[2016-06-24 09:52] LABS: BILIRUBIN,DIRECT 0.1 mg/dL (0.0-0.2)
[2016-06-24 09:57] LABS: LACTIC ACID REFLEX 1.5 mmol/L (0.4-1.9)
[2016-06-24] MEDS ORDERED: COLISTIMETHATE SODIUM 150 MG in IV NS 0.9% 50 ML IV SCH (10:00)
[2016-06-24] MEDS ORDERED: SECONDARY IV SET 1 EA INFUS.SET MC ONE ×3 (10:25→19:39)
[2016-06-24] MEDS ORDERED: IV NS 0.9% 250 ML IV ONE (10:25)
[2016-06-24] MEDS ORDERED: IV SET PRIMARY PUMP SET 1 EA INFUS.SET MC ONE (10:25)
[2016-06-24 12:00] VITALS: BP 105/61
[2016-06-24] MEDS ORDERED: SILVER NITRATE APPLICATOR 1 EA BOX TP ONE (13:00)
[2016-06-24] MEDS ORDERED: LIDOCAINE 1%-EPI 1:100,000 20 ML VIAL TP ONE (13:00)
[2016-06-24] MEDS: NEOMY SULF/BACITRAC ZN/POLY 15 GM TUBE TP SCH (13:28)
[2016-06-24] MEDS: HYDROGEL DRESSING 90 GM TUBE TP SCH (13:29)
[2016-06-24] MEDS: Z GUARD REMEDY 2 OZ OINT TP PRN (13:29)
[2016-06-24] MEDS ORDERED: CIPROFLOXACIN HCL 250 MG TABLET PO SCH (14:00)
--- NOTE | 2016-06-24 14:35 | NUR ---
ÓSCAR/RN - Notes Dr Bojorquez at bedside for PICC line insertion. Previous midline on left upper arm infiltrated. Left arm kept elevated. Per MD, IV line inserted on DOUGLAS is not really a PICC line (as it does not reach subclavian), but a midline. Pt medicated with Dilaudid 2mg IVP as ordered for PRN pain. Comfort measures in place. Will reassess pain accordingly.
[2016-06-24] MEDS ORDERED: K PHOS NEUTRAL 250 MG TABLET PO ONE (14:40)
[2016-06-24 16:00] VITALS: BP 112/72
--- NOTE | 2016-06-24 16:26 | NUR ---
ÓSCAR/RN - Notes Pt placed on Barimaxx bed. Refuses wound treatment to be done at this time, states "My friend is visiting from out of town." Visitor at bedside. Pt requests for wound treatment to be done at a later time.
[2016-06-24] MEDS: LACTOBACILLUS RHAMNOSUS GG 1 EACH CAP.SPRINK PO SCH (16:39)
--- NOTE | 2016-06-24 18:25 | NUR ---
ÓSCAR/RN - Closing Notes Pt eating dinner with visitor at bedside. No acute distress. All needs met and attended. Will endorse to night nurse for continuity of care.
[2016-06-24] MEDS: MEROPENEM 500 MG in IV NS 0.9% 50 ML IV SCH (19:38)
[2016-06-24 20:00] VITALS: BP 104/63
--- NOTE | 2016-06-24 20:30 | NUR ---
Patient A&OX4.VS stable.Visitors in room.Respiration even and unlabored.ST 104 per monitor.Patient complaints of pain to back of neck and his back 8/10 on pain scale.Pain medication administered with relief.SPC to gravity drainage draining mod. amount cloudy urine with sediments.Antibiotic given as ordered.With multiple skin issues.Skin protocol implemented.Maintained on Darshan rosem ary 11 bed.Safety observed. Call light within easy reach.
[2016-06-25] VITALS: BP 113/58
--- NOTE | 2016-06-25 | NUR ---
Patient awake bed bath rendered.Dressing done to multiple ulcers per protocol. Complete linens changed.repositioned to comfort offloading pressure points.
[2016-06-25] MEDS: HYDROMORPHONE INJ 2 MG/ML DISP.SYRIN IV PRN ×6 (02:38→23:24)
[2016-06-25 04:00] VITALS: BP 95/48
[2016-06-25] MEDS: VANCOMYCIN 1 GM in IV D5W 250 ML IV SCH ×3 (05:14→21:38)
[2016-06-25 06:21] LABS: CALCIUM, SERUM 7.6 mg/dL (8.5-10.1); CREATININE 0.7 mg/dL (0.6-1.3); PHOSPHORUS 3.6 mg/dL (2.5-4.9); POTASSIUM 3.8 mmol/L (3.5-5.1)
[2016-06-25 06:34] LABS: THYROID STIMULATING HORMONE 2.032 uIU/mL (0.358-3.74)
[2016-06-25 06:35] LABS: C-REACTIVE PROTEIN 11.1 mg/dL (0.0-0.9)
[2016-06-25 06:38] LABS: INR 1.01 (0.87-1.13); PROTHROMBIN TIME 10.8 SECS (9.5-12.7)
--- NOTE | 2016-06-25 06:51 | NUR ---
Patient sleeping on rounds.All due medications administered.Pain managed with Dilaudid.Lactic acid trending down.All needs anticipated and met.
[2016-06-25 08:00] VITALS: BP_SYST 148; BP_SYST 94; BP_SYST 97; BP_DIAS 47; BP_DIAS 89
[2016-06-25] MEDS: MEROPENEM 500 MG in IV NS 0.9% 50 ML IV SCH ×2 (08:45→19:00)
[2016-06-25] MEDS: LACTOBACILLUS RHAMNOSUS GG 1 EACH CAP.SPRINK PO SCH ×2 (08:53→18:28)
[2016-06-25] MEDS: NEOMY SULF/BACITRAC ZN/POLY 15 GM TUBE TP SCH (09:38)
[2016-06-25] MEDS: HYDROGEL DRESSING 90 GM TUBE TP SCH (09:38)
[2016-06-25 12:00] VITALS: BP 99/49
--- NOTE | 2016-06-25 12:30 | NUR ---
Left buttock and left hip (also documented as buttock 2), left ankle and l foot debrided by Nikki Blancas. pt. tolerated procedure well. New photos of debrided wounds placed in chart. New measurements documented on 1200 skin assessment.
[2016-06-25 13:04] LABS: BASOPHILS # (AUTO) 0.1 /CMM (0.0-0.2); BASOPHILS % (AUTO) 1.2 % (0.0-2.0); EOSINOPHILS # (AUTO) 0.4 /CMM (0.0-0.7); EOSINOPHILS % (AUTO) 8.3 % (0.0-6.0); HEMATOCRIT 26 % (39-51); HEMOGLOBIN 8.3 g/dL (13.5-17.5); LYMPHOCYTES # (AUTO) 1.5 /CMM (0.8-4.8); LYMPHOCYTES % (AUTO) 28.6 % (20.0-44.0); MEAN CORPUSCULAR HEMOGLOBIN 24 PG (26.0-33.0); MEAN CORPUSCULAR HGB CONC 31 g/dl (31.0-36.0); MEAN CORPUSCULAR VOLUME 75 fL (80-96); MONOCYTES # (AUTO) 0.8 /CMM (0.1-1.30); MONOCYTES % (AUTO) 15.5 % (2.0-12.0); NEUTROPHILS # (AUTO) 2.4 /CMM (1.8-8.9); NEUTROPHILS % (AUTO) 46.4 % (43.0-81.0); PLATELET COUNT (AUTO) 263 /CMM (150-450); RDW COEFFICIENT OF VARIATION 22.3 (11.5-15.0); RED BLOOD CELL COUNT(AUTO) 3.51 MIL/uL (4.5-6.0); WHITE BLOOD COUNT (AUTO) 5.2 K/uL (4.3-11.0)
[2016-06-25 13:20] LABS: ALBUMIN 2.1 g/dL (3.4-5.0); BILIRUBIN,TOTAL 0.1 mg/dL (0.2-1.0); CALCIUM, SERUM 7.8 mg/dL (8.5-10.1); CREATININE 0.7 mg/dL (0.6-1.3); POTASSIUM 4.1 mmol/L (3.5-5.1); TOTAL PROTEIN, SERUM 5.9 g/dL (6.4-8.2)
[2016-06-25] MEDS ORDERED: IV SET PRIMARY PUMP SET 1 EA INFUS.SET MC ONE (15:24)
[2016-06-25] MEDS: CADEXOMER IODINE 40 GM TUBE TP SCH (15:28)
[2016-06-25] MEDS: SOD FERRIC GLUC 125 MG in IV NS 0.9% 100 ML IV SCH (15:31)
[2016-06-25 16:00] VITALS: BP 106/47
[2016-06-25] MEDS: MUPIROCIN OINT 2% 22 GM TUBE SCH ×2 (19:11→21:38)
--- NOTE | 2016-06-25 19:30 | NUR ---
RN INITIAL NOTE RECEIVED PT IN NO ACUTE DISTRESS IN BED. PT IS A/O X 4 AND ABLE TO MAKE NEEDS KNOWN. PT IS ON RA AND TOLERATING WELL WITH O2 SAT @ 97%. PT IS ON TELE WITH ST ON THE MONITOR. PT DENIES ANY SOB, DIFFICULTY BREATHING OR PAIN AT THIS TIME. PAIN MEDICATION GIVEN BY AM RN PRIOR TO ENDORSEMENT. PT HAS SUPRAPUBIC F/C THAT IS CLEAN DRY INTACT AND PATENT WITH CLEAR YELLOW URINE DRAINING. PT HAS DOUGLAS MIDLINE THAT IS CLEAN DRY INTACT AND PATENT WITH SALINE FLUSH. BED IN LOW LOCK POSITION WITH RIALS UP X 2. CALL LIGHT WITHIN REACH AND ALL SAFETY MEASURES ENSURED AND CARRIED OUT. WILL CONTINUE TO MONITOR PT.
[2016-06-25 20:00] VITALS: BP 106/63
[2016-06-26] VITALS: BP 114/53
[2016-06-26] MEDS: HYDROMORPHONE INJ 2 MG/ML DISP.SYRIN IV PRN ×7 (03:05→21:36)
[2016-06-26 04:00] VITALS: BP 119/55
[2016-06-26] MEDS: VANCOMYCIN 1 GM in IV D5W 250 ML IV SCH ×3 (04:42→20:23)
[2016-06-26] MEDS: MEROPENEM 500 MG in IV NS 0.9% 50 ML IV SCH ×2 (06:42→19:33)
--- NOTE | 2016-06-26 07:33 | NUR ---
RN CLOSING NOTE PT REMAINS IN NO ACUTE DISTRESS IN BED. PT DID NOT HAVE ANY SIGNIFICANT CHANGE IN CONDITION DURING SHIFT. WILL ENDORSE REPORT TO AM RN FOR CONTINUITY OF CARE. ALL NEEDS MET ALL ORDERS CARRIED OUT.
[2016-06-26 07:44] LABS: BASOPHILS % (AUTO) 0.7 % (0.0-2.0); EOSINOPHILS # (AUTO) 0.4 /CMM (0.0-0.7); EOSINOPHILS % (AUTO) 7.7 % (0.0-6.0); HEMATOCRIT 29 % (39-51); HEMOGLOBIN 9.3 g/dL (13.5-17.5); LYMPHOCYTES # (AUTO) 1.5 /CMM (0.8-4.8); LYMPHOCYTES % (AUTO) 29.9 % (20.0-44.0); MEAN CORPUSCULAR HEMOGLOBIN 24 PG (26.0-33.0); MEAN CORPUSCULAR HGB CONC 32 g/dl (31.0-36.0); MEAN CORPUSCULAR VOLUME 75 fL (80-96); MONOCYTES # (AUTO) 0.6 /CMM (0.1-1.30); MONOCYTES % (AUTO) 10.9 % (2.0-12.0); NEUTROPHILS # (AUTO) 2.6 /CMM (1.8-8.9); NEUTROPHILS % (AUTO) 50.8 % (43.0-81.0); PLATELET COUNT (AUTO) 291 /CMM (150-450); RDW COEFFICIENT OF VARIATION 21.8 (11.5-15.0); WHITE BLOOD COUNT (AUTO) 5.1 K/uL (4.3-11.0)
[2016-06-26 08:00] VITALS: BP 103/65
--- NOTE | 2016-06-26 08:00 | NUR ---
RN INTIAL NOTE PT RECEIVED IN BED. AWAKE, ALERT AND ORIENTED. PT ABLE TO MAKE NEEDS KNOWN. SINUS TACH ON TELE. RESPIRATIONS EVEN AND UNLABORED. NO S/S OF RESPIRATORY DISTRESS OR SOB. SATING WELL ON ROOM AIR. SKIN WARM AND SLIGHTLY MOIST. NO S/S OF PAIN OR DISCOMFORT. LEG AND BUTTOCKS WOUND BANDAGES C/D/I. IV SITE C/D/I. FLUSHED AND PATENT. SUPRAPUBIC CATHETER DRAINING WITH GRAVITY. ISOLATION PRECAUTIONS OBSERVED. SAFETY MEASURES IN PLACE. BED IN LOCKED POSITION. SIDE RAILS UP. CALL LIGHT WITHIN REACH. WILL CONTINUE TO MONITOR.
[2016-06-26 08:07] LABS: CALCIUM, SERUM 7.9 mg/dL (8.5-10.1); CREATININE 0.8 mg/dL (0.6-1.3); MAGNESIUM 1.5 mg/dL (1.8-2.4); PHOSPHORUS 3.7 mg/dL (2.5-4.9); POTASSIUM 3.6 mmol/L (3.5-5.1)
[2016-06-26] MEDS: CADEXOMER IODINE 40 GM TUBE TP SCH (08:14)
[2016-06-26] MEDS: LACTOBACILLUS RHAMNOSUS GG 1 EACH CAP.SPRINK PO SCH ×2 (08:14→16:24)
[2016-06-26] MEDS: HYDROGEL DRESSING 90 GM TUBE TP SCH (08:14)
[2016-06-26] MEDS: MUPIROCIN OINT 2% 22 GM TUBE SCH ×2 (08:14→20:23)
[2016-06-26] MEDS: Z GUARD REMEDY 2 OZ OINT TP PRN (08:15)
[2016-06-26] MEDS: NEOMY SULF/BACITRAC ZN/POLY 15 GM TUBE TP SCH (08:16)
--- NOTE | 2016-06-26 11:51 | NUR ---
WOUND CARE CONSULT: PT PRESENTS WITH MULTIPLE WOUNDS, PRESENT ON ADMISSION. PT FOLLOWED BY PLASTICS TEAM AND DPM. RECOMMENDATIONS MADE FOR WOUND CARE AND SKIN PROTECTION. DISCUSSED WITH NURSING STAFF. PT ON BARIMAX BED WITH ETS AIR. ALL SKIN PROTECTION MEASURES IN PLACE. 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 MD IN AGREEMENT WITH PLAN OF CARE. Addendum: 06/26/16 at 1153 by NEO CORREA WNDNU Amended: Links added.
[2016-06-26 12:00] VITALS: BP_SYST 107; BP_SYST 117; BP_DIAS 60; BP_DIAS 73
[2016-06-26] MEDS ORDERED: SECONDARY IV SET 1 EA INFUS.SET MC ONE (12:29)
[2016-06-26] MEDS: Magnesium 1GM/D5W 100ML PREMIX 100 ML IV SCH ×2 (12:36→15:31)
[2016-06-26 16:00] VITALS: BP 119/76
[2016-06-26] MEDS ORDERED: IV SET PRIMARY PUMP SET 1 EA INFUS.SET MC ONE (16:17)
[2016-06-26] MEDS: SOD FERRIC GLUC 125 MG in IV NS 0.9% 100 ML IV SCH (16:24)
--- NOTE | 2016-06-26 19:09 | NUR ---
RN CLOSING NOTE PT RESTING IN BED COMFORTABLY, ALL MD ORDERS CARRIED OUT. PT KEPT CLEAN AND DRY. IV C/D/I. PATENT. ALL SAFETY MEASURES IN PLACE AT ALL TIMES. REPORT WILL BE GIVEN TO PM RN FOR SOM.
[2016-06-26 20:00] VITALS: BP 106/53
--- NOTE | 2016-06-26 20:00 | NUR ---
MEDICAL OFFICE SCHEDULER - RECEIVED PT IN BED, AWAKE ALERT, TALKING WITH GUESTS, PT IS COMPLAINING OF 10/10 PAIN IN MID BACK, WILL GIVE DILAUDID. PT IS ON ROOM AIR, NO ACUTE DISTRESS. PT IS IN SR/ST 90S-100S. PT HAS SUPRAPUBIC CATHETER WITH GOOD URINE OUTPUT. PT HAS MULTIPLE WOUNDS, SEE CHART. PT IS ON REGULAR DIET, PT HAS DOUGLAS MIDLINE WITH TKO, NO BLOOD RETURN. WILL CONTINUE TO MONITOR
[2016-06-26] MEDS ORDERED: IV NS 0.9% 250 ML IV ONE (21:30)
[2016-06-27] VITALS: BP 137/77
[2016-06-27] MEDS: HYDROMORPHONE INJ 2 MG/ML DISP.SYRIN IV PRN ×9 (02:30→21:32)
[2016-06-27 04:00] VITALS: BP 143/76
[2016-06-27] MEDS: VANCOMYCIN 1 GM in IV D5W 250 ML IV SCH (04:39)
[2016-06-27] MEDS: MEROPENEM 500 MG in IV NS 0.9% 50 ML IV SCH (06:19)
[2016-06-27 06:42] LABS: BASOPHILS % (AUTO) 0.4 % (0.0-2.0); EOSINOPHILS # (AUTO) 0.5 /CMM (0.0-0.7); EOSINOPHILS % (AUTO) 6.8 % (0.0-6.0); HEMATOCRIT 31 % (39-51); HEMOGLOBIN 9.6 g/dL (13.5-17.5); LYMPHOCYTES # (AUTO) 1.8 /CMM (0.8-4.8); LYMPHOCYTES % (AUTO) 26.3 % (20.0-44.0); MEAN CORPUSCULAR HEMOGLOBIN 24 PG (26.0-33.0); MEAN CORPUSCULAR HGB CONC 31 g/dl (31.0-36.0); MEAN CORPUSCULAR VOLUME 76 fL (80-96); MONOCYTES # (AUTO) 0.5 /CMM (0.1-1.30); MONOCYTES % (AUTO) 7.2 % (2.0-12.0); NEUTROPHILS # (AUTO) 4.1 /CMM (1.8-8.9); NEUTROPHILS % (AUTO) 59.3 % (43.0-81.0); PLATELET COUNT (AUTO) 358 /CMM (150-450); RDW COEFFICIENT OF VARIATION 21.6 (11.5-15.0); WHITE BLOOD COUNT (AUTO) 6.9 K/uL (4.3-11.0)
[2016-06-27 07:13] LABS: CALCIUM, SERUM 8.2 mg/dL (8.5-10.1); CREATININE 0.8 mg/dL (0.6-1.3); MAGNESIUM 1.6 mg/dL (1.8-2.4); POTASSIUM 3.7 mmol/L (3.5-5.1)
--- NOTE | 2016-06-27 07:40 | NUR ---
RN INTIAL NOTE RECEIVED PT FROM PM SHIFT A/O X4 . RESTING COMFORTABLY. PT ON RA 2L SPO2 97 % TOLERATING WELL. PT NOT IN ACUTE SOB. IV DOUGLAS MIDLINE 22G NS@ TKO HR FLUSHED AND PATENT. PT TURNED AND REPOSITIONED FOR SAFETY. PT KEPT WARM AND DRY. WILL CONTINUE TO MONITOR CLOSELY.
[2016-06-27 08:00] VITALS: BP 99/66
[2016-06-27] MEDS: NEOMY SULF/BACITRAC ZN/POLY 15 GM TUBE TP SCH (08:40)
[2016-06-27] MEDS: LACTOBACILLUS RHAMNOSUS GG 1 EACH CAP.SPRINK PO SCH ×2 (08:40→18:06)
[2016-06-27] MEDS: HYDROGEL DRESSING 90 GM TUBE TP SCH (08:40)
[2016-06-27] MEDS: CADEXOMER IODINE 40 GM TUBE TP SCH (08:40)
[2016-06-27] MEDS: MUPIROCIN OINT 2% 22 GM TUBE SCH ×2 (08:40→21:33)
[2016-06-27] MEDS ORDERED: SECONDARY IV SET 1 EA INFUS.SET MC ONE (11:18)
[2016-06-27] MEDS: Magnesium 1GM/D5W 100ML PREMIX 100 ML IV SCH ×2 (11:27→13:51)
[2016-06-27 12:00] VITALS: BP 136/65
[2016-06-27] MEDS: SOD FERRIC GLUC 125 MG in IV NS 0.9% 100 ML IV SCH (14:49)
--- NOTE | 2016-06-27 15:45 | NUR ---
RN NOTE DR FOSTER ORDERED DUCOLAX SUPP ONCE FOR OBTAINING STOOL CX FOR PT ON 06/28 ON AM SHIFT. ORDER ENTERED.
[2016-06-27] MEDS: Z GUARD REMEDY 2 OZ OINT TP PRN (15:50)
[2016-06-27 16:00] VITALS: BP 130/62
[2016-06-27] MEDS ORDERED: IV NS 0.9% 250 ML IV ONE (16:13)
[2016-06-27] MEDS ORDERED: VANCOMYCIN 1 GM in IV D5W 250 ML IV SCH (17:00)
[2016-06-27] MEDS: LEVOFLOXACIN (500MG) 500 MG TABLET PO SCH (18:06)
--- NOTE | 2016-06-27 19:52 | NUR ---
RN CLOSING NOTE PT V/S STABLE THROUGH SHIFT. NO ACUTE C/O SOB PAIN WELL CONTROLLED WITH DILAUDID. IV NS @ TKO FLUSH PATENT. PT TOOK ALL MEDICATIONS. ALL SAFETY MEASURES IN PLACE. PT KEEP WARM AND DRY. ENDORSED TO PM SHIFT FOR SOM.
[2016-06-27 20:00] VITALS: BP 124/68
--- NOTE | 2016-06-27 20:20 | NUR ---
RN NOTES PT RECEIVED AWAKE ON BED WITH VISITOR AT THIS TIME. AOX4 BREATHING EVEN AND UNLABORED DENIES PAIN. SATING 97% IN RA. WITH IV SITE ON DOUGLAS MIDLINE INTACT AND PATENT. SUPRAPUBIC CATH INTACT DRAINED WITH CLEAR COLOR URINE. AFEBRILE. KEPT PT CLEAN AND DRY ALL NEEDS ATTENDED PLACED CALL LIGHT WITHIN EASY REACH. WILL CONTINUE TO MONITOR.
[2016-06-28 04:00] VITALS: BP 123/55
[2016-06-28] MEDS: HYDROMORPHONE INJ 2 MG/ML DISP.SYRIN IV PRN ×9 (04:02→23:01)
[2016-06-28 06:50] LABS: BASOPHILS % (AUTO) 0.4 % (0.0-2.0); EOSINOPHILS # (AUTO) 0.4 /CMM (0.0-0.7); EOSINOPHILS % (AUTO) 4.9 % (0.0-6.0); HEMATOCRIT 32 % (39-51); HEMOGLOBIN 10.2 g/dL (13.5-17.5); LYMPHOCYTES # (AUTO) 1.6 /CMM (0.8-4.8); LYMPHOCYTES % (AUTO) 18.2 % (20.0-44.0); MEAN CORPUSCULAR HEMOGLOBIN 24 PG (26.0-33.0); MEAN CORPUSCULAR HGB CONC 32 g/dl (31.0-36.0); MEAN CORPUSCULAR VOLUME 76 fL (80-96); MONOCYTES # (AUTO) 0.5 /CMM (0.1-1.30); MONOCYTES % (AUTO) 6.1 % (2.0-12.0); NEUTROPHILS # (AUTO) 6.3 /CMM (1.8-8.9); NEUTROPHILS % (AUTO) 70.4 % (43.0-81.0); PLATELET COUNT (AUTO) 400 /CMM (150-450); RDW COEFFICIENT OF VARIATION 21.6 (11.5-15.0); RED BLOOD CELL COUNT(AUTO) 4.28 MIL/uL (4.5-6.0); WHITE BLOOD COUNT (AUTO) 8.9 K/uL (4.3-11.0)
--- NOTE | 2016-06-28 07:15 | NUR ---
RN MS INITIAL NOTES RECEIVED REPORT FROM PM NURSE, PT RESTING IN BED, NO ACUTE DISTRESS OR SOB, PT ASLEEP AT THIS TIME, A&O X4, ON RA SAT ABOVE 97%, SUPRAPUBIC CATH INTACT, RT UPPER MIDLINE INTACT NO S/S OF INFILTRATION NOTED. ALL NEEDS MET, ALL SAFETY MEASURES INITIATED, SIDE RAILS X2, BED LOW AND LOCKED, CALL LIGHT WITHIN REACH, WILL CONTINUE TO MONITOR.
--- NOTE | 2016-06-28 07:20 | NUR ---
RN NOTES PT ASLEEP WELL ABOUT 6 HOURS WOKE UP AND COMPLAINING OF USUAL PAIN AT SCALE OF 8/10 ON HIS BACK. NO UNUSUAL SIGNIFICANT CHANGE OF CONDITION. AFEBRILE THROUGHOUT THE SHIFT. VS MAINTAINED WNL. ALL NEEDS ATTENDED. KEPT IN ISOLATION. ISOLATION PRECAUTION ALWAYS MET. KEPT PT CLEAN AND DRY. WOUND DRESSING CHANGED AND TOLERATED WELL. CALL LIGHT KEPT WITHIN EASY REACH. ENDORSED CONTINUITY OFCARE TO AM NURSE.
[2016-06-28 07:29] LABS: CALCIUM, SERUM 8.4 mg/dL (8.5-10.1); CREATININE 0.8 mg/dL (0.6-1.3); MAGNESIUM 1.7 mg/dL (1.8-2.4); PHOSPHORUS 2.9 mg/dL (2.5-4.9)
[2016-06-28 08:00] VITALS: BP 124/85
[2016-06-28] MEDS: LACTOBACILLUS RHAMNOSUS GG 1 EACH CAP.SPRINK PO SCH ×2 (08:34→16:18)
[2016-06-28] MEDS: CADEXOMER IODINE 40 GM TUBE TP SCH (08:42)
[2016-06-28] MEDS: MUPIROCIN OINT 2% 22 GM TUBE SCH ×2 (08:42→21:14)
[2016-06-28] MEDS: NEOMY SULF/BACITRAC ZN/POLY 15 GM TUBE TP SCH (08:42)
[2016-06-28] MEDS: HYDROGEL DRESSING 90 GM TUBE TP SCH (08:43)
[2016-06-28] MEDS ORDERED: BISACODYL SUPP (10 MG) 10 MG/SUPP.RECT SUPP.RECT RC ONE (09:00)
[2016-06-28] MEDS: Magnesium 1GM/D5W 100ML PREMIX 100 ML IV SCH ×2 (11:54→14:16)
[2016-06-28 16:00] VITALS: BP 120/69
[2016-06-28] MEDS ORDERED: SECONDARY IV SET 1 EA INFUS.SET MC ONE (16:01)
[2016-06-28] MEDS: SOD FERRIC GLUC 125 MG in IV NS 0.9% 100 ML IV SCH (16:18)
[2016-06-28] MEDS: LEVOFLOXACIN (500MG) 500 MG TABLET PO SCH (16:18)
[2016-06-28 20:00] VITALS: BP 125/79
[2016-06-29] MEDS: HYDROMORPHONE INJ 2 MG/ML DISP.SYRIN IV PRN ×9 (00:57→23:44)
[2016-06-29 04:00] VITALS: BP 127/70
[2016-06-29 05:36] LABS: BASOPHILS % (AUTO) 0.5 % (0.0-2.0); EOSINOPHILS # (AUTO) 0.4 /CMM (0.0-0.7); EOSINOPHILS % (AUTO) 4.3 % (0.0-6.0); HEMATOCRIT 31 % (39-51); HEMOGLOBIN 9.8 g/dL (13.5-17.5); LYMPHOCYTES # (AUTO) 1.9 /CMM (0.8-4.8); LYMPHOCYTES % (AUTO) 20.1 % (20.0-44.0); MEAN CORPUSCULAR HEMOGLOBIN 24 PG (26.0-33.0); MEAN CORPUSCULAR HGB CONC 32 g/dl (31.0-36.0); MEAN CORPUSCULAR VOLUME 76 fL (80-96); MONOCYTES # (AUTO) 0.5 /CMM (0.1-1.30); MONOCYTES % (AUTO) 5.8 % (2.0-12.0); NEUTROPHILS # (AUTO) 6.5 /CMM (1.8-8.9); NEUTROPHILS % (AUTO) 69.3 % (43.0-81.0); PLATELET COUNT (AUTO) 446 /CMM (150-450); RED BLOOD CELL COUNT(AUTO) 4.07 MIL/uL (4.5-6.0); WHITE BLOOD COUNT (AUTO) 9.3 K/uL (4.3-11.0)
[2016-06-29 05:44] LABS: CALCIUM, SERUM 8.1 mg/dL (8.5-10.1); CREATININE 0.8 mg/dL (0.6-1.3); MAGNESIUM 1.8 mg/dL (1.8-2.4); POTASSIUM 3.7 mmol/L (3.5-5.1)
--- NOTE | 2016-06-29 06:30 | NUR ---
MS RN NOTES AWAKE & RESPONSIVE. NOT IN ANY DISTRESS. NO SOB NOTED. DENIES ANY PAIN OR DISCOMFORT AT THIS TIME. WITH PICC LINE PATENT & INTACT. AM CARE DONE. MONITORED ACCORDINGLY. CALL LIGHT WITHIN REACH. BED IN LOWEST POSITION. SR UP X 3 FOR SAFETY. WILL ENDORSE TO NEXT SHIFT.
--- NOTE | 2016-06-29 07:30 | NUR ---
RN INITIAL NOTES PT RECEIVED IN BED, SLEEPING. RESPIRATIONS ARE EVEN AND UNLABORED. NO S/S OF RESPIRATORY DISTRESS OR SOB, NO S/S OF PAIN OR DISCOMFORT. SKIN IS WARM AND DRY TO TOUCH. PICC LINE, FLUSHED AND PATENT. DRESSING C/D/I. SAFETY MEASURES IN PLACE, BED IN LOCKED, LOW POSITION WITH TWO SIDE RAILS UP. CALL LIGHT WITHIN REACH. WILL CONTINUE TO MONITOR.
[2016-06-29 08:00] VITALS: BP 124/68
[2016-06-29] MEDS: CADEXOMER IODINE 40 GM TUBE TP SCH (09:27)
[2016-06-29] MEDS: MUPIROCIN OINT 2% 22 GM TUBE SCH ×2 (09:27→20:44)
[2016-06-29] MEDS: HYDROGEL DRESSING 90 GM TUBE TP SCH (09:28)
[2016-06-29] MEDS: NEOMY SULF/BACITRAC ZN/POLY 15 GM TUBE TP SCH (09:28)
[2016-06-29] MEDS: LACTOBACILLUS RHAMNOSUS GG 1 EACH CAP.SPRINK PO SCH ×2 (09:29→16:41)
[2016-06-29] MEDS: Z GUARD REMEDY 2 OZ OINT TP PRN (09:29)
[2016-06-29] MEDS: SOD FERRIC GLUC 125 MG in IV NS 0.9% 100 ML IV SCH (13:56)
[2016-06-29] MEDS ORDERED: IV SET PRIMARY PUMP SET 1 EA INFUS.SET MC ONE (13:58)
[2016-06-29 16:00] VITALS: BP 123/63
[2016-06-29] MEDS: LEVOFLOXACIN (500MG) 500 MG TABLET PO SCH (16:41)
--- NOTE | 2016-06-29 19:07 | NUR ---
RN CLOSING NOTE PT RESTING IN BED COMFORTABLY, ALL MD ORDERS CARRIED OUT. PT KEPT CLEAN AND DRY. IV SITE C/D/I. ISOLATION PRECAUTIONS OBSERVED AT ALL TIMES. ALL SAFETY MEASURES IN PLACE AT ALL TIMES. REPORT WILL BE GIVEN TO PM RN FOR SOM.
[2016-06-29 20:00] VITALS: BP 123/66
--- NOTE | 2016-06-29 20:00 | NUR ---
MS RN NOTES RECEIVED PT IN BARIMAXX BED, AWAKE, A/O X3. COMPLAINING OF CHRONIC BACK PAIN AND TOOTH ACHE DUE TO CHIPPED TOOTH. ON RA PHYLLIS WELL. SUPRAPUBIC CATH IN PLACE DRAINING WELL. CLAUDIA PICC PRESENT, FLUSHES WITH NO PAIN. MULTIPLE WOUNDS ON BILATERAL LEGS. HOB ELEVATED, CALL LIGHT WITHIN REACH.
[2016-06-30] MEDS: HYDROMORPHONE INJ 2 MG/ML DISP.SYRIN IV PRN ×6 (01:28→19:43)
[2016-06-30 04:00] VITALS: BP 150/80
[2016-06-30] MEDS ORDERED: SECONDARY IV SET 1 EA INFUS.SET MC ONE (05:17)
[2016-06-30] MEDS ORDERED: IV SET PRIMARY PUMP SET 1 EA INFUS.SET MC ONE (05:17)
[2016-06-30] MEDS ORDERED: IV NS 0.9% 250 ML IV ONE (05:17)
[2016-06-30 06:41] LABS: CALCIUM, SERUM 8.2 mg/dL (8.5-10.1); CREATININE 0.8 mg/dL (0.6-1.3); POTASSIUM 3.6 mmol/L (3.5-5.1)
[2016-06-30 06:43] LABS: BASOPHILS % (AUTO) 0.4 % (0.0-2.0); EOSINOPHILS # (AUTO) 0.5 /CMM (0.0-0.7); EOSINOPHILS % (AUTO) 5.1 % (0.0-6.0); HEMATOCRIT 31 % (39-51); HEMOGLOBIN 9.7 g/dL (13.5-17.5); LYMPHOCYTES # (AUTO) 2.4 /CMM (0.8-4.8); MEAN CORPUSCULAR HEMOGLOBIN 24 PG (26.0-33.0); MEAN CORPUSCULAR HGB CONC 32 g/dl (31.0-36.0); MEAN CORPUSCULAR VOLUME 77 fL (80-96); MONOCYTES # (AUTO) 0.5 /CMM (0.1-1.30); MONOCYTES % (AUTO) 5.3 % (2.0-12.0); NEUTROPHILS # (AUTO) 6.4 /CMM (1.8-8.9); NEUTROPHILS % (AUTO) 65.2 % (43.0-81.0); PLATELET COUNT (AUTO) 434 /CMM (150-450); RDW COEFFICIENT OF VARIATION 22.3 (11.5-15.0); RED BLOOD CELL COUNT(AUTO) 3.99 MIL/uL (4.5-6.0); WHITE BLOOD COUNT (AUTO) 9.8 K/uL (4.3-11.0)
--- NOTE | 2016-06-30 06:50 | NUR ---
MS RN NOTES SUPRAPUBIC CATHETER LEAKING AROUND INSERTION SITE. BALLOON ASSESSED AND FULLY INFLATED. WILL ENDORSE TO AM RN TO RELAY TO MD.
--- NOTE | 2016-06-30 07:05 | NUR ---
RN INITIAL NOTES RECEIVED PT AWAKE, A/OX4. ON ROOM AIR. NO RESPIRATORY DISTRESS NOTED. NO SOB NOTED. HOB ELEVATED. CLAUDIA PICC LINE IN PLACE. SUPRAPUBIC CATH IN PLACE. NO SEDIMENTS NOR HEMATURIA NOTED. BLE ELEVATED. CALL LIGHT WITHIN REACH. PT COMFORTABLE. WILL CONTINUE TO MONITOR.
[2016-06-30 08:00] VITALS: BP 135/70
[2016-06-30] MEDS: HYDROGEL DRESSING 90 GM TUBE TP SCH (08:00)
[2016-06-30] MEDS: NEOMY SULF/BACITRAC ZN/POLY 15 GM TUBE TP SCH (08:00)
[2016-06-30] MEDS: LACTOBACILLUS RHAMNOSUS GG 1 EACH CAP.SPRINK PO SCH ×2 (08:00→16:27)
[2016-06-30] MEDS: CADEXOMER IODINE 40 GM TUBE TP SCH (08:00)
[2016-06-30] MEDS: MUPIROCIN OINT 2% 22 GM TUBE SCH ×2 (08:00→21:04)
--- NOTE | 2016-06-30 10:40 | NUR ---
RN NOTES SEEN AND EXAMINED BY DR. FRANK. AWARE OF LAB RESULTS: HGB 9.7, HCT 31. NO SIGNS OF ACTIVE BLEEDING NOTED. MD ORDERED LABS IN AM. NOTED AND CARRIED OUT.
[2016-06-30 16:00] VITALS: BP 139/85
[2016-06-30] MEDS: NYSTATIN CREAM 15 GM TUBE TP SCH (16:27)
[2016-06-30] MEDS: LEVOFLOXACIN (500MG) 500 MG TABLET PO SCH (16:27)
--- NOTE | 2016-06-30 18:41 | NUR ---
RN CLOSING NOTES PT REMAINS STABLE. NO SIGNIFICANT CHANGE NOTED. KEPT COMFORTABLE. PAIN WELL MANAGED. PAIN MEDICATION NOTED EFFECTIVE. TX PROVIDED ORDERED. KEPT CLEAN AND DRY. REPOSITIONED Q2. BLE ELEVATED. KEPT CLEAN AND DRY. CALL LIGHT WITHIN REACH. WILL ENDORSE FOR CONTINUITY OF CARE.
[2016-06-30 20:00] VITALS: BP 140/92
[2016-07-01] MEDS: HYDROMORPHONE INJ 2 MG/ML DISP.SYRIN IV PRN ×7 (00:18→22:52)
[2016-07-01 04:00] VITALS: BP 98/49
[2016-07-01 08:00] VITALS: BP 132/83
[2016-07-01 08:41] LABS: BASOPHILS % (AUTO) 0.3 % (0.0-2.0); EOSINOPHILS # (AUTO) 0.4 /CMM (0.0-0.7); EOSINOPHILS % (AUTO) 4.1 % (0.0-6.0); HEMATOCRIT 36 % (39-51); HEMOGLOBIN 11.3 g/dL (13.5-17.5); LYMPHOCYTES % (AUTO) 19.8 % (20.0-44.0); MEAN CORPUSCULAR HEMOGLOBIN 24 PG (26.0-33.0); MEAN CORPUSCULAR HGB CONC 31 g/dl (31.0-36.0); MEAN CORPUSCULAR VOLUME 76 fL (80-96); MONOCYTES # (AUTO) 0.5 /CMM (0.1-1.30); MONOCYTES % (AUTO) 5.3 % (2.0-12.0); NEUTROPHILS % (AUTO) 70.5 % (43.0-81.0); PLATELET COUNT (AUTO) 425 /CMM (150-450); RED BLOOD CELL COUNT(AUTO) 4.75 MIL/uL (4.5-6.0); WHITE BLOOD COUNT (AUTO) 9.9 K/uL (4.3-11.0)
[2016-07-01] MEDS: LACTOBACILLUS RHAMNOSUS GG 1 EACH CAP.SPRINK PO SCH ×2 (08:50→18:03)
[2016-07-01] MEDS: MUPIROCIN OINT 2% 22 GM TUBE SCH ×2 (08:59→20:31)
[2016-07-01] MEDS: HYDROGEL DRESSING 90 GM TUBE TP SCH (08:59)
[2016-07-01] MEDS: NEOMY SULF/BACITRAC ZN/POLY 15 GM TUBE TP SCH (09:00)
[2016-07-01] MEDS: NYSTATIN CREAM 15 GM TUBE TP SCH ×2 (09:00→17:58)
[2016-07-01] MEDS: CADEXOMER IODINE 40 GM TUBE TP SCH (09:00)
--- NOTE | 2016-07-01 09:00 | NUR ---
MS RN NOTE Pt AOx4. VSS. Suprapubic cath patent. CLAUDIA PICC. Wants to wean off a bit on dilaudid, tylenol x1 given for chronic pain. All needs met, no s/s distress. Will cont to monitor.
[2016-07-01 09:04] LABS: CALCIUM, SERUM 8.9 mg/dL (8.5-10.1); CREATININE 0.7 mg/dL (0.6-1.3)
[2016-07-01 16:00] VITALS: BP 129/82
[2016-07-01] MEDS: LEVOFLOXACIN (500MG) 500 MG TABLET PO SCH (18:02)
--- NOTE | 2016-07-01 18:42 | NUR ---
MS RN NOTE All needs met, no s/s distress. IV dilaudid given for pain. No BM. 550cc UO in herrera. Will endorse to next RN.
--- NOTE | 2016-07-01 19:30 | NUR ---
MS SANDRA INITIAL NOTE PT A/O X4 AND ABLE TO MAKE NEEDS KNOWN. FRIENDS AT BEDSIDE. ON ROOM AIR AND SATING WELL. IV CLAUDIA PICC CLEAN, DRY, INTACT AND FLUSHING WELL. CALL LIGHT WITHIN REACH AT ALL TIMES. ALL SAFET M Addendum: 07/01/16 at 2128 by TONO JAMES RN ALL SAFETY MEASURES IN PLACE. SUPRAPUBIC CATHETER INTACT, CLEAN AND DRAINING BY GRAVITY.WILL CONTINUE TO MONITOR.
[2016-07-01 20:00] VITALS: BP 129/83
[2016-07-02] MEDS: HYDROMORPHONE INJ 2 MG/ML DISP.SYRIN IV PRN ×5 (02:25→17:37)
[2016-07-02 04:00] VITALS: BP 137/87
--- NOTE | 2016-07-02 06:35 | NUR ---
MS RN CLOSING NOTE PT IN STABLE CONDITION DURING SHIFT. NO ACUTE DISTRESS NOTE. WOUND CARE DONE. IV SITE CLEAN AND INTACT. SUPRAPUBIC CATHETER INTACT AND PATENT. ALL SAFETY MEASURES IN PLACE. CALL LIGHT WITHIN EASY REACH AT ALL TIMES. WILL ENDORSE TO NEXT SHIFT FOR SOM.
[2016-07-02 08:00] VITALS: BP 144/74
--- NOTE | 2016-07-02 08:00 | NUR ---
RN INITIAL NOTE PT RECEIVED IN BED RESTING COMFORTABLY. NO S/S OF PAIN OR DISCOMFORT. NO S/S OF RESPIRATORY DISTRESS OR SOB. SKIN WARM AND DRY TO TOUCH. IV SITE FLUSHED AND PATENT. SAFETY MEASURES IMPLEMENTED. CALL LIGHT WITHIN REACH. WILL CONTINUE TO MONITOR.
[2016-07-02] MEDS: MUPIROCIN OINT 2% 22 GM TUBE SCH (08:02)
[2016-07-02] MEDS: CADEXOMER IODINE 40 GM TUBE TP SCH (08:04)
[2016-07-02] MEDS: NYSTATIN CREAM 15 GM TUBE TP SCH ×2 (08:04→16:20)
[2016-07-02] MEDS: HYDROGEL DRESSING 90 GM TUBE TP SCH (08:05)
[2016-07-02] MEDS: LACTOBACILLUS RHAMNOSUS GG 1 EACH CAP.SPRINK PO SCH ×2 (08:05→16:20)
[2016-07-02] MEDS: NEOMY SULF/BACITRAC ZN/POLY 15 GM TUBE TP SCH (08:05)
[2016-07-02 12:00] VITALS: BP 111/67
--- NOTE | 2016-07-02 13:17 | NUR ---
RN NOTE SPOKE WITH EMMANUEL REGARDING DISCHARGE. PT DOES NOT WANT TO BE DISCHARGED UNTIL HOME HEALTH NURSE ARRANGEMENTS HAVE BEEN MADE. PT OKAY TO STAY ANOTHER DAY.
[2016-07-02] MEDS: LEVOFLOXACIN (500MG) 500 MG TABLET PO SCH (16:20)
--- NOTE | 2016-07-02 19:00 | NUR ---
RN CLOSING NOTE PT D/C HOME
== END 2016-07-02 19:22 | disposition home or self-care (01) | DRG 853 ==
LOC: TELE-TD 20:26 → TELE1 06-25 11:41 → MEDSG1 06-27 13:14
PROVIDERS: ADMIT Nurse Practitioner Acute Care; ATTEND Nurse Practitioner Acute Care
PROC: 0JB90ZZ Excision of Buttock Subcutaneous Tissue and Fascia, Open Approach (ICD-10-PCS; principal; 2016-06-25)
PROC: 0QBK0ZZ Excision of Left Fibula, Open Approach (ICD-10-PCS; 2016-06-25)
PROC: 02HV33Z Insertion of Infusion Device into Superior Vena Cava, Percutaneous Approach (ICD-10-PCS; 2016-06-28)
PROC: B548ZZA Ultrasonography of Superior Vena Cava, Guidance (ICD-10-PCS; 2016-06-28)
DX: A41.9 Sepsis, unspecified organism (principal); L89.304 Pressure ulcer of unspecified buttock, stage 4; L89.524 Pressure ulcer of left ankle, stage 4; G82.20 Paraplegia, unspecified; N39.0 Urinary tract infection, site not specified; K90.9 Intestinal malabsorption, unspecified; L97.419 Non-pressure chronic ulcer of right heel and midfoot with unspecified severity; T81.31XA Disruption of external operation (surgical) wound, not elsewhere classified, initial encounter; E87.6 Hypokalemia; E83.42 Hypomagnesemia; D63.8 Anemia in other chronic diseases classified elsewhere; I10 Essential (primary) hypertension; E66.8 Other obesity; Z87.891 Personal history of nicotine dependence; R00.0 Tachycardia, unspecified; D50.9 Iron deficiency anemia, unspecified; E66.9 Obesity, unspecified; G89.4 Chronic pain syndrome; K21.9 Gastro-esophageal reflux disease without esophagitis; N31.9 Neuromuscular dysfunction of bladder, unspecified; Z87.440 Personal history of urinary (tract) infections
CPT/HCPCS: 36415; 71010-TC; 74000-TC; 80048-TC; 80053-TC; 80202-TC; 81000-TC; 82248-TC; 82272-TC; 82728-TC; 82746; 83540-TC; 83605-TC; 83735-TC; 84100-TC; 84439-TC; 84443-TC; 85025-TC; 85385-TC; 85610-TC; 85652-TC; 85730-TC; 86140-TC; 86431-TC; 87040-TC; 87081-TC; 87086-TC; 87186-TC; 87400; 93307-TC; A4216; A6248; A6253; A6402; A6403; C1751; J0770; J1170; J2185; J2916; J3370; J3475; J3490; J7030; J7050; J7060; Z7610

== ENCOUNTER 2016-07-22 20:11 | Inpatient (IN) | payer MEDICARE ==
[~2016-07-22] VITALS: Ht 190.5 cm; Wt 111.1 kg
[2016-07-22 20:00] VITALS: BP 139/78
[~2016-07-22 20:11] MED LIST changes: -DOXY100C41 PO; -LEVO750T21 PO; -PANT40TA2 PO; +PANT40TA4 PO
--- NOTE | 2016-07-22 20:30 | NUR ---
SENIOR RESTAURANT MANAGER INITIAL NOTE PT IS A DIRECT ADMIT FROM HOME PER DR YANG. PT ARRIVED VIA WHEELCHAIR WITH FRIEND SHARI AT BEDSIDE. PT IS SHIVERING. TEMP TAKEN 101.9, ICE PACKS APPLIED. PUT INTO BED WITH THE ASSISTANCE OF MULTIPLE STAFF MEMBERS. DR YANG NOTIFIED THAT PT IS HERE. WILL COMPLETE ADMISSION. WILL CONTINUE TO MONITOR.
[2016-07-22] MEDS ORDERED: IV NS 0.9% 1,000 ML IV PRN (20:45)
[2016-07-22 21:00] VITALS: BP 139/78
[2016-07-22] MEDS ORDERED: Z GUARD REMEDY 2 OZ OINT TP PRN (21:00)
[2016-07-22] MEDS ORDERED: ZOLPIDEM TARTRATE 5 MG TABLET PO PRN (21:00)
[2016-07-22] MEDS ORDERED: ENOXAPARIN SODIUM 40 MG/0.4 ML DISP.SYRIN SQ SCH (21:00)
[2016-07-22] MEDS ORDERED: PANTOPRAZOLE 40 MG TABLET.DR PO ONE (21:01)
[2016-07-22] MEDS ORDERED: ONDANSETRON HCL/PF 4 MG/2 ML VIAL ONE (21:04)
[2016-07-22] MEDS ORDERED: IV SET PRIMARY PUMP SET 1 EA INFUS.SET MC ONE (21:04)
[2016-07-22] MEDS ORDERED: HYDROMORPHONE INJ 2 MG/ML DISP.SYRIN ONE (21:04)
--- NOTE | 2016-07-22 21:10 | NUR ---
DIRECTOR COMPLIANCE US TECH AT BEDSIDE. PT IS NO LONGER SHIVERING. ICE PACKS IN PLACE. WILL CONTINUE TO MONITOR.
[2016-07-22] MEDS: PANTOPRAZOLE 40 MG TABLET.DR PO SCH (21:16)
[2016-07-22] MEDS ORDERED: ACETAMINOPHEN 325 MG TABLET ONE (21:18)
--- NOTE | 2016-07-22 21:30 | NUR ---
EKG/ECG TECHNICIAN ED CROOK OPERATOR CALLED TO INSERT A EXTERNAL JUGULAR IV FOR ACCESS, PT IS A HARD STICK. LAB IS UNABLE TO COLLECT BLOOD AT THIS TIME. RIGHT EJ INSERTED, GOOD BLOOD RESTURN, MEDICATIONS ADMINISTERED. WILL CONTINUE TO MONITOR.
[2016-07-22] MEDS: ONDANSETRON HCL/PF 4 MG/2 ML VIAL IVP PRN (21:42)
[2016-07-22] MEDS: ACETAMINOPHEN 325 MG TABLET PO PRN (21:43)
[2016-07-22] MEDS: HYDROMORPHONE INJ 2 MG/ML DISP.SYRIN IV PRN (21:43)
[2016-07-22] MEDS ORDERED: RIVAROXABAN 15 MG TABLET ONE (22:18)
[2016-07-22] MEDS: RIVAROXABAN 15 MG TABLET PO SCH (22:27)
[2016-07-22 23:13] LABS: BASOPHILS % (AUTO) 0.2 % (0.0-2.0); EOSINOPHILS # (AUTO) 0.2 /CMM (0.0-0.7); EOSINOPHILS % (AUTO) 1.2 % (0.0-6.0); HEMATOCRIT 35 % (39-51); HEMOGLOBIN 11.5 g/dL (13.5-17.5); LYMPHOCYTES # (AUTO) 1.9 /CMM (0.8-4.8); LYMPHOCYTES % (AUTO) 10.3 % (20.0-44.0); MEAN CORPUSCULAR HEMOGLOBIN 25 PG (26.0-33.0); MEAN CORPUSCULAR HGB CONC 33 g/dl (31.0-36.0); MEAN CORPUSCULAR VOLUME 76 fL (80-96); MONOCYTES # (AUTO) 0.7 /CMM (0.1-1.30); MONOCYTES % (AUTO) 4.1 % (2.0-12.0); NEUTROPHILS # (AUTO) 15.2 /CMM (1.8-8.9); NEUTROPHILS % (AUTO) 84.2 % (43.0-81.0); PLATELET COUNT (AUTO) 542 /CMM (150-450); RDW COEFFICIENT OF VARIATION 22.1 (11.5-15.0); RED BLOOD CELL COUNT(AUTO) 4.66 MIL/uL (4.5-6.0)
[2016-07-22 23:27] LABS: ALANINE AMINOTRANSFERASE 56 U/L (12-78); ALBUMIN 2.7 g/dL (3.4-5.0); ALKALINE PHOSPHATASE 228 U/L (46-116); ASPARTATE AMINOTRANSFERASE 26 U/L (15-37); BILIRUBIN,TOTAL 0.3 mg/dL (0.2-1.0); CALCIUM, SERUM 8.7 mg/dL (8.5-10.1); CARBON DIOXIDE 28 mmol/L (21-32); CHLORIDE 94 mmol/L (98-107); CREATININE 0.9 mg/dL (0.6-1.3); GFR 93 mL/min (>60); GLUCOSE 128 mg/dL (74-106); MAGNESIUM 1.6 mg/dL (1.8-2.4); PHOSPHORUS 3.1 mg/dL (2.5-4.9); POTASSIUM 4.7 mmol/L (3.5-5.1); SODIUM SERUM 132 mmol/L (136-145); TOTAL PROTEIN, SERUM 8.3 g/dL (6.4-8.2); UREA NITROGEN, BLOOD 10 mg/dL (7-18)
[2016-07-22] MEDS ORDERED: IV D5W 500 ML IV ONE (23:29)
[2016-07-22 23:30] LABS: TROPONIN I < 0.017 ng/mL (0.00-0.056)
[2016-07-22] MEDS ORDERED: COLISTIMETHATE SODIUM 100 MG in IV NS 0.9% 50 ML IV SCH (23:30)
[2016-07-22] MEDS ORDERED: IBUPROFEN 400 MG TABLET PO PRN (23:30)
[2016-07-22] MEDS ORDERED: VANCOMYCIN 1 GM VIAL ONE (23:32)
[2016-07-22] MEDS ORDERED: IV NS 0.9% 50 ML IV ONE (23:33)
[2016-07-22] MEDS ORDERED: SECONDARY IV SET 1 EA INFUS.SET MC ONE (23:33)
[2016-07-22 23:41] LABS: LACTIC ACID 2.5 mmol/L (0.4-2.0)
[2016-07-22] MEDS: Magnesium 1GM/D5W 100ML PREMIX 100 ML IV SCH (23:47)
[2016-07-22] MEDS: VANCOMYCIN 1.5 GM in IV D5W 500 ML IV ONE (23:56)
[2016-07-23] VITALS (7 sets, daily range): BP systolic 114–139; BP diastolic 51–73
[2016-07-23] MEDS ORDERED: Magnesium 1GM/D5W 100ML PREMIX 400 ML IV ONE (00:04)
[2016-07-23] MEDS ORDERED: SECONDARY IV SET 1 EA INFUS.SET MC ONE (00:04)
[2016-07-23] MEDS: VANCOMYCIN 1.5 GM in IV D5W 500 ML IV ONE (00:18)
[2016-07-23] MEDS ORDERED: IV SET PRIMARY PUMP SET 1 EA INFUS.SET MC ONE (00:19)
[2016-07-23] MEDS ORDERED: IV NS 0.9% 250 ML IV ONE (00:19)
[2016-07-23] MEDS: Magnesium 1GM/D5W 100ML PREMIX 100 ML IV SCH ×4 (00:19→03:29)
[2016-07-23] MEDS ORDERED: LACTOBACILLUS RHAMNOSUS GG 1 EACH CAP.SPRINK ONE (00:40)
[2016-07-23] MEDS: LACTOBACILLUS RHAMNOSUS GG 1 EACH CAP.SPRINK PO SCH ×3 (00:44→16:13)
[2016-07-23] MEDS ORDERED: HYDROMORPHONE INJ 2 MG/ML DISP.SYRIN ONE ×2 (01:31→06:31)
[2016-07-23] MEDS: HYDROMORPHONE INJ 2 MG/ML DISP.SYRIN IV PRN ×6 (01:34→22:37)
[2016-07-23 01:53] LABS: BILIRUBIN,DIRECT 0.1 mg/dL (0.0-0.2)
[2016-07-23 02:00] LABS: LACTIC ACID REFLEX 1.2 mmol/L (0.4-1.9)
[2016-07-23] MEDS ORDERED: IV NS 0.9% 1,000 ML ONE (05:45)
[2016-07-23] MEDS ORDERED: ACETAMINOPHEN 325 MG TABLET ONE (06:30)
[2016-07-23] MEDS: IV NS 0.9% 1,000 ML IV PRN ×2 (06:31→16:14)
[2016-07-23] MEDS: ACETAMINOPHEN 325 MG TABLET PO PRN (06:34)
--- NOTE | 2016-07-23 07:25 | NUR ---
RN NOTES RECEIVED REPORT FROM SHARON FLORES, PT IS RESTING IN BED, ASLEEP AT THIS TIME. NO ACUTE DISTRESS NOTED. ON RA PHYLLIS WELL. ST ON TELE MONITOR HR 120 THIS TIME. ONGOING IVF NS@150ML/HR INFUSING ON R EJ.SATELLITE PROJECT SITE MONITOR MARCI CAME TO DRAW BLOO FOR AM LABS, UNABLE TO GET BLOOD PT IS HARD STICK. PER RN REPORT AWAITING FOR PICCLINE INSERTION. CN SOON MADE AWARE. FRIEND AT BEDSIDE. SAFETY MAINTAINED. CALL LIGHT WITHIN REACH
[2016-07-23] MEDS ORDERED: FEE PK DOSING 1 MIN EA MC ONE (08:31)
[2016-07-23] MEDS: RIVAROXABAN 15 MG TABLET PO SCH ×2 (08:56→16:25)
[2016-07-23] MEDS: PANTOPRAZOLE 40 MG TABLET.DR PO SCH (08:56)
--- NOTE | 2016-07-23 09:00 | NUR ---
RN NOTES SPOKE WIT SHASHANK TRANSVERSE ABDOMINAL MUSCLE NURSE TO FOLLOW UP PICCLINE INSERTION PER SHASHANK POE OR YOLETTE WILL COME TO PLACE A PICCLINE. CHARGE SOON AWARE, MARCI LABTECH AWARE
[2016-07-23] MEDS: VANCOMYCIN 1 GM in IV D5W 250 ML IV SCH ×2 (11:20→16:13)
--- NOTE | 2016-07-23 11:57 | NUR ---
RN NOTES PT SIGNED CONSENT FOR PICCLINE INSERTION, YOLETTE FLORES AT BEDSIDE
[2016-07-23] MEDS ORDERED: COLISTIMETHATE SODIUM 100 MG in IV NS 0.9% 50 ML IV SCH (12:00)
[2016-07-23 14:21] LABS: BASOPHILS # (AUTO) 0.1 /CMM (0.0-0.2); BASOPHILS % (AUTO) 0.5 % (0.0-2.0); EOSINOPHILS # (AUTO) 0.3 /CMM (0.0-0.7); EOSINOPHILS % (AUTO) 2.8 % (0.0-6.0); HEMATOCRIT 29 % (39-51); HEMOGLOBIN 9.3 g/dL (13.5-17.5); LYMPHOCYTES # (AUTO) 1.3 /CMM (0.8-4.8); LYMPHOCYTES % (AUTO) 10.4 % (20.0-44.0); MEAN CORPUSCULAR HEMOGLOBIN 25 PG (26.0-33.0); MEAN CORPUSCULAR HGB CONC 32 g/dl (31.0-36.0); MEAN CORPUSCULAR VOLUME 76 fL (80-96); MONOCYTES # (AUTO) 0.6 /CMM (0.1-1.30); MONOCYTES % (AUTO) 5.2 % (2.0-12.0); NEUTROPHILS # (AUTO) 9.8 /CMM (1.8-8.9); NEUTROPHILS % (AUTO) 81.1 % (43.0-81.0); PLATELET COUNT (AUTO) 454 /CMM (150-450); RDW COEFFICIENT OF VARIATION 22.2 (11.5-15.0); RED BLOOD CELL COUNT(AUTO) 3.78 MIL/uL (4.5-6.0); WHITE BLOOD COUNT (AUTO) 12.1 K/uL (4.3-11.0)
[2016-07-23 14:41] LABS: BILIRUBIN,TOTAL 0.4 mg/dL (0.2-1.0); CREATININE 0.8 mg/dL (0.6-1.3); PHOSPHORUS 3.7 mg/dL (2.5-4.9); TOTAL PROTEIN, SERUM 6.7 g/dL (6.4-8.2)
[2016-07-23 14:46] LABS: THYROID STIMULATING HORMONE 1.468 uIU/mL (0.358-3.74)
[2016-07-23 17:25] LABS: APPEARANCE,URINE TURBID (CLEAR); BILIRUBIN,URINE NEGATIVE (NEGATIVE); BLOOD, URINE 2+ Ery/uL (NEGATIVE); COLOR,URINE YELLOW (YELLOW); KETONES,URINE NEGATIVE (NEGATIVE); LEUKOCYTE ESTERASE ,URINE 2+ (NEGATIVE); NITRITE, URINE POSITIVE (NEGATIVE); PH,URINE 6.5 (5.0-8.0); PROTEIN,URINE NEGATIVE (NEGATIVE); UGLUCOSE NEGATIVE (NEGATIVE); UROBILINOGEN,URINE 0.2 EU/dL (0.2)
[2016-07-23 17:38] LABS: ADD URINE CULTURE YES; BACTERIA,URINE 3+ /HPF (None Seen); MUCUS,URINE Few /LPF (None Seen); SQUAMOUS EPITHELIAL CELL,UR 0-2 /HPF (None Seen); URINE AMORPHOUS URATE Many /HPF (None Seen); WBC,URINE 21-50 /HPF (0-3)
[2016-07-23 17:39] LABS: YEAST,URINE Rare /HPF (None Seen)
--- NOTE | 2016-07-23 19:30 | NUR ---
MANAGER TECHNICAL INITIAL NOTE RECEIVED REPORT FROM JOSE FLORES. PT IN BED, FRIEND STEPHENIE AT BEDSIDE. A/A/OX4. PT IS COMPLAINING OF PAIN, WILL MEDICATE. LUNG SOUNDS DIMINISHED. BOWEL SOUNDS PRESENT. LEFT ARM SWELLING, HAND COOL TO TOUCH PULSES PRESENT IN RADIAL CAPILLARY REFILL PRESENT GREATER THAN [address] YANG WILL BE NOTIFIED. RIGHT UPPER ARM MIDLINE IN PLACE, RIGHT EJ INTACT. SUPRAPUBIC CATHETER INTACT AND DRAINING URINE. BED IN LOW LOCKED POSITION. CALL LIGHT WITHIN REACH. WILL CONTINUE TO MONITOR.
[2016-07-23] MEDS ORDERED: MEROPENEM 500 MG in IV NS 0.9% 50 ML IV SCH (21:00)
[2016-07-23] MEDS ORDERED: MEROPENEM 500 MG VIAL IV ONE (21:20)
[2016-07-23] MEDS ORDERED: IV NS 0.9% 100 ML IV ONE (21:32)
[2016-07-23] MEDS: MEROPENEM 1 G in IV NS 0.9% 100 ML IV SCH (21:42)
[2016-07-24] VITALS: BP_SYST 112; BP_SYST 125; BP_DIAS 62; BP_DIAS 71
[2016-07-24] MEDS: ACETAMINOPHEN 325 MG TABLET PO PRN (00:08)
[2016-07-24] MEDS: IV NS 0.9% 1,000 ML IV PRN ×2 (00:16→09:46)
[2016-07-24] MEDS: VANCOMYCIN 1 GM in IV D5W 250 ML IV SCH ×3 (00:40→16:12)
[2016-07-24 04:00] VITALS: BP 111/63
[2016-07-24] MEDS ORDERED: IV NS 0.9% 100 ML IV ONE (04:09)
[2016-07-24] MEDS ORDERED: IV NS 0.9% 50 ML IV ONE (04:09)
[2016-07-24] MEDS: HYDROMORPHONE INJ 2 MG/ML DISP.SYRIN IV PRN ×6 (04:15→23:50)
[2016-07-24] MEDS: MEROPENEM 1 G in IV NS 0.9% 100 ML IV SCH ×3 (05:32→21:54)
--- NOTE | 2016-07-24 07:15 | NUR ---
TELE/RN\; PT RECEIVED ON NON-REBREATHER; PER NOC SHIFT, PT STARTED TO DESAT TO 80'S. RT AT BEDSIDE FOR SUCTIONING. PT A&OX1, ABLE TO FOLLOW COMMANDS, DENIES PAIN. FC DRAINING CARL URINE WITH SCANT SEDIMENTS TO GRAVITY. TOLERATING GTF; FREE WATER FLUSHES ADMINISTERED ORDERED. WILL CONT TO MONITOR PT. Addendum: 07/24/16 at 1653 by PIERRE FONG RN WRONG ENTRY
[2016-07-24 07:39] LABS: BASOPHILS % (AUTO) 0.2 % (0.0-2.0); EOSINOPHILS # (AUTO) 0.3 /CMM (0.0-0.7); EOSINOPHILS % (AUTO) 2.7 % (0.0-6.0); HEMATOCRIT 28 % (39-51); HEMOGLOBIN 8.9 g/dL (13.5-17.5); LYMPHOCYTES # (AUTO) 1.4 /CMM (0.8-4.8); LYMPHOCYTES % (AUTO) 12.8 % (20.0-44.0); MEAN CORPUSCULAR HEMOGLOBIN 25 PG (26.0-33.0); MEAN CORPUSCULAR HGB CONC 32 g/dl (31.0-36.0); MEAN CORPUSCULAR VOLUME 76 fL (80-96); MONOCYTES # (AUTO) 0.9 /CMM (0.1-1.30); NEUTROPHILS # (AUTO) 8.2 /CMM (1.8-8.9); NEUTROPHILS % (AUTO) 76.3 % (43.0-81.0); PLATELET COUNT (AUTO) 403 /CMM (150-450); RDW COEFFICIENT OF VARIATION 22.2 (11.5-15.0); RED BLOOD CELL COUNT(AUTO) 3.64 MIL/uL (4.5-6.0); WHITE BLOOD COUNT (AUTO) 10.8 K/uL (4.3-11.0)
[2016-07-24 08:00] VITALS: BP 122/72
[2016-07-24] MEDS: LACTOBACILLUS RHAMNOSUS GG 1 EACH CAP.SPRINK PO SCH ×2 (08:16→16:11)
[2016-07-24] MEDS: RIVAROXABAN 15 MG TABLET PO SCH ×2 (08:16→16:12)
[2016-07-24] MEDS: PANTOPRAZOLE 40 MG TABLET.DR PO SCH (08:17)
[2016-07-24] MEDS: Z GUARD REMEDY 2 OZ OINT TP PRN (08:17)
--- NOTE | 2016-07-24 08:30 | NUR ---
TELE/RN: ORALLY SUCTIONED MODERATE AMOUNT OF THICK WHITE SECRETIONS, PT WITH PRODUCTIVE COUGH. COARSE RHONCHI NOTED THROUGHOUT. PLACED BACK ON O2 4L/MIN VIA NC, SPO2 100%. HOB ELEVATED PER ASPIRATION PRECAUTIONS. WILL CONT TO MONITOR PT STATUS. Addendum: 07/24/16 at 1653 by PIERRE FONG RN WRONG ENTRY
[2016-07-24 08:46] LABS: CALCIUM, SERUM 7.9 mg/dL (8.5-10.1); CREATININE 0.7 mg/dL (0.6-1.3); POTASSIUM 3.6 mmol/L (3.5-5.1)
[2016-07-24 12:00] VITALS: BP_SYST 115; BP_SYST 132; BP_DIAS 76; BP_DIAS 78
[2016-07-24] MEDS ORDERED: SECONDARY IV SET 1 EA INFUS.SET MC ONE (12:14)
[2016-07-24] MEDS: MUPIROCIN OINT 2% 22 GM TUBE SCH ×2 (14:47→23:00)
[2016-07-24] MEDS ORDERED: CYCLOBENZAPRINE 10 MG TABLET PO PRN (15:00)
--- NOTE | 2016-07-24 15:09 | NUR ---
WOUND CARE CONSULT: PT PRESENTS WITH MULTIPLE WOUNDS INCLUDING LOWER EXTREMITY WOUNDS AND LEFT BUTTOCK ULCERS (STAGE III AND UNSTAGEABLE, PRESENT ON ADMISSION. BARIMAX BED ORDERED. PT TO BE TURNED AND REPOSITIONED EVERY 2 HRS PT CONDITION PERMITS, HEELS FLOATED. PT NOTED TO HAVE LOWER EXTREMITY CONTRACTURES AND SPASMS. PT ALSO NOTED TO HAVE LEAKING SUPRAPUBIC CATHETER. ALL SKIN PROTECTION AND WOUND CARE RECOMMENDATIONS DISCUSSED WITH NURSING STAFF AND DR JAVED. WILL SEE PRN. WYLIE IN AGREEMENT WITH PLAN OF CARE. Addendum: 07/24/16 at 1511 by NEO CORREA WNDNU Amended: Links added.
--- NOTE | 2016-07-24 15:10 | NUR ---
TELE/RN: WOUND CARE ASSESSMENT AND CONSULT PERFORMED BY RN WITH NEO DELIVERER FOOD. PT TOLERATED WELL. PHOTOGRAPHS PLACED IN CHART. PT AND MD IN AGREEMENT WITH POC.
--- NOTE | 2016-07-24 15:30 | NUR ---
TELE/RN: ARGENIS HILTON NP INFORMED OF LEAKING SUPRAPUBIC CATH, C/O "BURNING, ACHING MUSCLE AND NERVE PAIN THAT DILAUDID CAN'T FIX." PER RECORDS SUPERVISOR, "JUST REINFORCE AND KEEP THE SUPRAPUBIC CATH NICE AND CLEAN. IT'S EXPECTED." NEW ORDERS FOR PAIN MGMT ENTERED BY RECORDS SUPERVISOR. PT IN AGREEMENT WITH POC.
[2016-07-24 16:00] VITALS: BP_SYST 130; BP_SYST 153; BP_DIAS 42; BP_DIAS 78
[2016-07-24] MEDS: HYDROGEL DRESSING 90 GM TUBE TP SCH (16:12)
[2016-07-24] MEDS ORDERED: GABAPENTIN 100 MG CAPSULE PO SCH (17:00)
--- NOTE | 2016-07-24 17:00 | NUR ---
TELE/RN: CATHETER WITH SOME LEAKAGE NOTED. ROAD DRIVER AND RN INFORMED PT NEED TO CHANGE LINEN AND CLEAN PT. PT REFUSES, STATES "LATER, I'LL LET YOU KNOW WHEN IM READY." EDUCATED PT ON SKIN PROTECTION MEASURES, STILL REFUSES.
[2016-07-24] MEDS: LEVOFLOXACIN (750 MG) 750 MG TABLET PO SCH (17:35)
--- NOTE | 2016-07-24 19:17 | NUR ---
TELE/RN: PT ASLEEP IN BED, EASY TO AROUSE, NO FACIAL GRIMACING NOTED. IVF INFUSING WELL THROUGH DOUGLAS MIDLINE. SUPRAPUBIC CATH WITH CLEAR YELLOW URINE. REFUSED HYGIENIC CARE. ENDORSED TO PM RN FOR SOM.
--- NOTE | 2016-07-24 19:30 | NUR ---
GRANITE COUNTERTOP INSTALLER INITIAL NOTES RECEIVED PT IN NO ACUTE DISTRESS IN BED. PT ON RA ORDERED BY MD SAT ABOVE 99%, SUPRAPUBIC PLASENCIA CATH DRAINING URINE VIA GRAVITY, A&O X 4 NO SOB OR ACUTE DISTRESS, DOUGLAS MIDLINE AND PATENT NO S/S OF INFILTRATION NOTED. ALL NEEDS MET, ALL SAFETY MEASURES INITIATED, SIDE RAILS X2, BED LOW AND LOCKED, CALL LIGHT WITHIN REACH, WILL CONTINUE TO MONITOR.
[2016-07-24 20:00] VITALS: BP 119/75
[2016-07-25] VITALS: BP 112/71
[2016-07-25] MEDS ORDERED: DEXAMETHASONE SOD PHOSPHATE 10 MG/ML VIAL IV STA (00:37)
[2016-07-25] MEDS ORDERED: DEXAMETHASONE SOD PHOSPHATE 10 MG/ML VIAL ONE (01:11)
[2016-07-25] MEDS ORDERED: GABAPENTIN 300 MG CAPSULE ONE (01:11)
[2016-07-25] MEDS: VANCOMYCIN 1 GM in IV D5W 250 ML IV SCH ×3 (01:24→17:35)
[2016-07-25] MEDS: GABAPENTIN 300 MG CAPSULE PO SCH ×4 (01:24→17:36)
[2016-07-25 04:00] VITALS: BP 143/78
[2016-07-25] MEDS: HYDROMORPHONE INJ 2 MG/ML DISP.SYRIN IV PRN ×6 (04:27→22:11)
[2016-07-25] MEDS: MEROPENEM 1 G in IV NS 0.9% 100 ML IV SCH ×3 (05:55→20:53)
--- NOTE | 2016-07-25 06:51 | NUR ---
RN CLOSING NOTE PT REMAINS IN NO ACUTE DISTRESS IN BED. PT DID NOT HAVE ANY SIGNIFICANT CHANGE IN CONDITION DURING SHIFT. ALL NEEDS MET ALL ORDERS CARRIED OUT. WILL ENDORSE TO AM RN FOR CONTINUITY OF CARE.
[2016-07-25] MEDS: IV NS 0.9% 1,000 ML IV PRN ×2 (07:20→15:55)
--- NOTE | 2016-07-25 07:35 | NUR ---
RN INITIAL NOTES: Received patient on bed during rounds, awake, alert and oriented x4, able to make needs known, call lights placed within reached, instructed to press call light when in need of any assistance, patient verbalized understanding of instructions. On RA, saturating well. With DOUGLAS midline flushed with NS and patent, with IVF NS at 150cc/hr infusing well. NO SOB, No LOC, respirations are even and unlabored, no acute distress noted. Kept clean and dry. Provided safety and comfort measures. Will turn and reposition, offload heels as per protocol. To continue to monitor accordingly.
[2016-07-25 08:00] VITALS: BP 128/69
[2016-07-25 08:20] LABS: CALCIUM, SERUM 8.5 mg/dL (8.5-10.1); CREATININE 0.9 mg/dL (0.6-1.3); POTASSIUM 3.8 mmol/L (3.5-5.1)
[2016-07-25] MEDS: PANTOPRAZOLE 40 MG TABLET.DR PO SCH (08:41)
[2016-07-25] MEDS: LACTOBACILLUS RHAMNOSUS GG 1 EACH CAP.SPRINK PO SCH ×2 (08:41→17:35)
[2016-07-25] MEDS: RIVAROXABAN 15 MG TABLET PO SCH ×2 (08:42→17:36)
[2016-07-25] MEDS: HYDROGEL DRESSING 90 GM TUBE TP PRN ×2 (08:43→08:45)
[2016-07-25] MEDS: Z GUARD REMEDY 2 OZ OINT TP PRN (08:43)
[2016-07-25] MEDS: HYDROGEL DRESSING 90 GM TUBE TP SCH (08:56)
[2016-07-25] MEDS: MUPIROCIN OINT 2% 22 GM TUBE SCH ×2 (11:15→22:11)
--- NOTE | 2016-07-25 11:43 | NUR ---
RN NOTES: Seen and examined by BHARGAVI Reyes with NNO, as per SHELL MACHINE OPERATOR ok to continue NS IVF as ordered.
[2016-07-25 16:00] VITALS: BP_SYST 119; BP_DIAS 64; BP_DIAS 67
[2016-07-25] MEDS: LEVOFLOXACIN (750 MG) 750 MG TABLET PO SCH (17:36)
--- NOTE | 2016-07-25 18:45 | NUR ---
MS RN INITIAL NOTE RECEIVED REPORT FROM JANETH FLORES. PT IN BED. BED BOUND, PARAPLEGIC. A/A/O X4. LUNG SOUNDS DIMINISHED. BOWEL SOUNDS PRESENT. SUPRAPUBIC CATH INTACT AND DRAINING. RIGHT UPPER ARM MIDLINE INTACT, SLUGGISH BLOOD RETURN. REPOSITIONED FOR COMFORT. PT COMPLAINING OF PAIN, 11/16 WILL CONTINUE TO MONITOR. BED IN LOW LOCKED POSITION. CALL LIGHT WITHIN REACH.
--- NOTE | 2016-07-25 19:05 | NUR ---
RN NOTES: Patient remain stable within shift, no signs and symptoms of distress noted. Afebrile. Maintain HOB elevated, aspiration precaution observed. Turned and repositioned, offload as per protocol. Placed comfortably in bed, safety measures ensured. Urine c/s collected and lab noted for brass pickler. Bariatric bed noted by [facility] to order and as per [facility] its on its way to Hospital. To endorsed to next shift for continuity of care.
[2016-07-25 20:00] VITALS: BP 129/74
[2016-07-26] MEDS ORDERED: SECONDARY IV SET 1 EA INFUS.SET MC ONE (00:33)
[2016-07-26] MEDS ORDERED: IV SET PRIMARY PUMP SET 1 EA INFUS.SET MC ONE (00:33)
[2016-07-26] MEDS: IV NS 0.9% 1,000 ML IV PRN ×3 (00:39→19:52)
[2016-07-26] MEDS: VANCOMYCIN 1 GM in IV D5W 250 ML IV SCH ×2 (00:39→09:53)
[2016-07-26 04:00] VITALS: BP 113/53
[2016-07-26] MEDS: MEROPENEM 1 G in IV NS 0.9% 100 ML IV SCH ×3 (04:27→21:31)
[2016-07-26] MEDS: HYDROMORPHONE INJ 2 MG/ML DISP.SYRIN IV PRN ×6 (04:32→22:46)
--- NOTE | 2016-07-26 07:15 | NUR ---
RN INITIAL NOTE PT RECEIVED IN BED, SLEEPING. EASILY AROUSED. PT IS ABLE TO MAKE NEEDS KNOWN. REQUESTING PAIN MEDICATION. RESPIRATIONS ARE EVEN AND UNLABORED. SATING WELL ON ROOM AIR. NO S/S OF RESPIRATORY DISTRESS OR SOB. IV SITE FLUSHED AND PATENT. DRESSING C/D/I. SKIN WARM AND DRY TO TOUCH. SAFETY MEASURES IMPLEMENTED. BED IN LOCKED LOW POSITION. CALL LIGHT AND BELONGINGS WITHIN EASY REACH. WILL CONTINUE TO MONITOR.
[2016-07-26] MEDS: FOLIC ACID 1 MG TABLET PO SCH (07:51)
[2016-07-26] MEDS: LACTOBACILLUS RHAMNOSUS GG 1 EACH CAP.SPRINK PO SCH ×2 (07:51→16:38)
[2016-07-26] MEDS: PANTOPRAZOLE 40 MG TABLET.DR PO SCH (07:52)
[2016-07-26] MEDS: GABAPENTIN 300 MG CAPSULE PO SCH ×3 (07:52→16:38)
[2016-07-26] MEDS: RIVAROXABAN 15 MG TABLET PO SCH ×2 (07:56→16:39)
[2016-07-26 08:00] VITALS: BP 134/82
[2016-07-26 08:30] LABS: BASOPHILS # (AUTO) 0.1 /CMM (0.0-0.2); BASOPHILS % (AUTO) 0.7 % (0.0-2.0); EOSINOPHILS # (AUTO) 0.1 /CMM (0.0-0.7); EOSINOPHILS % (AUTO) 0.7 % (0.0-6.0); HEMATOCRIT 29 % (39-51); HEMOGLOBIN 9.2 g/dL (13.5-17.5); LYMPHOCYTES # (AUTO) 1.9 /CMM (0.8-4.8); LYMPHOCYTES % (AUTO) 17.1 % (20.0-44.0); MEAN CORPUSCULAR HEMOGLOBIN 24 PG (26.0-33.0); MEAN CORPUSCULAR HGB CONC 32 g/dl (31.0-36.0); MEAN CORPUSCULAR VOLUME 76 fL (80-96); MONOCYTES # (AUTO) 0.7 /CMM (0.1-1.30); MONOCYTES % (AUTO) 6.3 % (2.0-12.0); NEUTROPHILS # (AUTO) 8.3 /CMM (1.8-8.9); NEUTROPHILS % (AUTO) 75.2 % (43.0-81.0); PLATELET COUNT (AUTO) 555 /CMM (150-450); RDW COEFFICIENT OF VARIATION 21.6 (11.5-15.0); RED BLOOD CELL COUNT(AUTO) 3.81 MIL/uL (4.5-6.0)
[2016-07-26 08:43] LABS: CALCIUM, SERUM 8.3 mg/dL (8.5-10.1); CREATININE 0.7 mg/dL (0.6-1.3); MAGNESIUM 1.6 mg/dL (1.8-2.4); PHOSPHORUS 2.9 mg/dL (2.5-4.9); POTASSIUM 3.3 mmol/L (3.5-5.1)
[2016-07-26] MEDS: HYDROGEL DRESSING 90 GM TUBE TP SCH (09:00)
[2016-07-26] MEDS ORDERED: IV NS 0.9% 500 ML IV ONE (09:44)
[2016-07-26] MEDS: MUPIROCIN OINT 2% 22 GM TUBE SCH ×2 (11:16→22:46)
[2016-07-26] MEDS ORDERED: POTASSIUM CHLORIDE 20 MEQ TAB.PRT.SR PO SCH (11:30)
--- NOTE | 2016-07-26 11:50 | NUR ---
RN NOTE REMOVED MEDICATIONS FROM PREVIOUS DATE FROM EMAR
[2016-07-26] MEDS: Magnesium 1GM/D5W 100ML PREMIX 100 ML IV SCH ×2 (11:51→13:09)
[2016-07-26 16:00] VITALS: BP 135/73
[2016-07-26] MEDS: VANCOMYCIN 1.25 GM in IV D5W 500 ML IV SCH (16:38)
[2016-07-26] MEDS: LEVOFLOXACIN (750 MG) 750 MG TABLET PO SCH (16:39)
[2016-07-26] MEDS: FLUCONAZOLE (100 MG) 100 MG TABLET PO SCH (19:11)
--- NOTE | 2016-07-26 19:30 | NUR ---
MS RN INITIAL NOTE RECEIVED REPORT FROM CANDACE FLORES. PT IN BED, FRIENDS AT BEDSIDE. PT IS A/A/O X4. LUNG SOUNDS CLEAR. BOWEL SOUNDS PRESENT. SUPRAPUBIC CATHETER INTACT AND DRAINING URINE. LEFT ARM SWELLING. IV PATENT AND INTACT. BED IN LOW LOCKED POSITION. CALL LIGHT WITHIN REACH. WILL CONTINUE TO MONITOR.
--- NOTE | 2016-07-26 19:35 | NUR ---
RN CLOSING NOTE PT RESTING IN BED COMFORTABLY. ALL MD ORDERS CARRIED OUT. PT KEPT CLEAN AND DRY. WILL GIVE REPORT TO PM NURSE FOR SOM.
[2016-07-26 20:00] VITALS: BP 128/70
[2016-07-27] MEDS: VANCOMYCIN 1.25 GM in IV D5W 500 ML IV SCH ×2 (00:31→08:22)
[2016-07-27] MEDS: HYDROMORPHONE INJ 2 MG/ML DISP.SYRIN IV PRN ×6 (01:36→21:29)
[2016-07-27 04:00] VITALS: BP 120/70
[2016-07-27] MEDS: IV NS 0.9% 1,000 ML IV PRN ×2 (04:58→17:21)
[2016-07-27] MEDS: MEROPENEM 1 G in IV NS 0.9% 100 ML IV SCH ×2 (04:58→12:34)
[2016-07-27 06:43] LABS: BASOPHILS # (AUTO) 0.1 /CMM (0.0-0.2); BASOPHILS % (AUTO) 0.9 % (0.0-2.0); EOSINOPHILS # (AUTO) 0.2 /CMM (0.0-0.7); EOSINOPHILS % (AUTO) 1.8 % (0.0-6.0); HEMATOCRIT 32 % (39-51); HEMOGLOBIN 10.3 g/dL (13.5-17.5); LYMPHOCYTES # (AUTO) 2.2 /CMM (0.8-4.8); LYMPHOCYTES % (AUTO) 22.3 % (20.0-44.0); MEAN CORPUSCULAR HEMOGLOBIN 25 PG (26.0-33.0); MEAN CORPUSCULAR HGB CONC 32 g/dl (31.0-36.0); MEAN CORPUSCULAR VOLUME 76 fL (80-96); MONOCYTES # (AUTO) 0.6 /CMM (0.1-1.30); MONOCYTES % (AUTO) 6.2 % (2.0-12.0); NEUTROPHILS # (AUTO) 6.7 /CMM (1.8-8.9); NEUTROPHILS % (AUTO) 68.8 % (43.0-81.0); PLATELET COUNT (AUTO) 593 /CMM (150-450); RED BLOOD CELL COUNT(AUTO) 4.17 MIL/uL (4.5-6.0); WHITE BLOOD COUNT (AUTO) 9.7 K/uL (4.3-11.0)
--- NOTE | 2016-07-27 07:00 | NUR ---
RN NOTES RECEIVED PT ON BED, A/Ox4, RESPIRATION EVEN AND UNLABORED, ON RA , NO SOB NOTED, LUNG SOUNDS R UPPER ARM MIDLINE CDI, SUPRAPUBIC CATHETER INTACT AND DRAINING TO GRAVITY , LEFT ARM SWELLING NOTED, BED IN LOW AND LOCKED POSITION. CALL LIGHT WITHIN REACH. WILL CONTINUE TO MONITOR PT CLOSELY. AND NOTIFY MD FOR ANY SIGNIFICANT CHANGES
[2016-07-27 07:01] LABS: CALCIUM, SERUM 8.2 mg/dL (8.5-10.1); CREATININE 0.6 mg/dL (0.6-1.3); MAGNESIUM 1.7 mg/dL (1.8-2.4); PHOSPHORUS 3.5 mg/dL (2.5-4.9); POTASSIUM 3.5 mmol/L (3.5-5.1)
[2016-07-27 08:00] VITALS: BP 118/83
[2016-07-27] MEDS: FOLIC ACID 1 MG TABLET PO SCH (08:18)
[2016-07-27] MEDS: LACTOBACILLUS RHAMNOSUS GG 1 EACH CAP.SPRINK PO SCH ×2 (08:18→17:14)
[2016-07-27] MEDS: PANTOPRAZOLE 40 MG TABLET.DR PO SCH (08:18)
[2016-07-27] MEDS: RIVAROXABAN 15 MG TABLET PO SCH ×2 (08:21→17:15)
[2016-07-27] MEDS: GABAPENTIN 300 MG CAPSULE PO SCH ×3 (08:21→17:15)
[2016-07-27] MEDS: HYDROGEL DRESSING 90 GM TUBE TP SCH (08:25)
[2016-07-27] MEDS: HYDROGEL DRESSING 90 GM TUBE TP PRN (08:25)
[2016-07-27 09:41] LABS: ANISOCYTOSIS 2+
[2016-07-27] MEDS ORDERED: SECONDARY IV SET 1 EA INFUS.SET MC ONE (11:04)
[2016-07-27] MEDS: Magnesium 1GM/D5W 100ML PREMIX 100 ML IV SCH ×2 (11:05→12:33)
--- NOTE | 2016-07-27 12:00 | NUR ---
RN NOTES PT REFUSED WOUND CARE ON THIS SHIFT, WANTS TO GET IT DONE LATER TONIGHT .
[2016-07-27] MEDS: MUPIROCIN OINT 2% 22 GM TUBE SCH ×2 (12:33→23:14)
[2016-07-27] MEDS ORDERED: IV SET PRIMARY PUMP SET 1 EA INFUS.SET MC ONE (12:38)
[2016-07-27 16:00] VITALS: BP 125/71
[2016-07-27] MEDS: LEVOFLOXACIN (750 MG) 750 MG TABLET PO SCH (17:15)
[2016-07-27] MEDS: FLUCONAZOLE (100 MG) 100 MG TABLET PO SCH (18:00)
--- NOTE | 2016-07-27 18:00 | NUR ---
RN NOTES VSS STABLE, RESPIRATION EVEN AND UNLABORED, NO LEAKING NOTED AT THE SUPRAPUBIC CATH SITE, NS AT 150CCF/HR RUNNING VIA R UPPER ARM MIDLINE, PT MEDICATED PER MD ORDER, NO SIGNIFICANT CHANGES NOTED ON THIS SHIFT
[2016-07-27] MEDS: VANCOMYCIN 1 GM in IV D5W 250 ML IV SCH (18:42)
--- NOTE | 2016-07-27 19:45 | NUR ---
MS RN INITIAL NOTE PT RECEIVED IN BEDN WITH FRIEND AT BEDSIDE. A/O X4 AND ABLE TO MAKE NEEDS KNOWN. ON ROOM AIR AND SATING WELL. IV DOUGLAS MIDLINE CLEAN AND INTACT WITH FLUIDS RUNNING AND WELL TOLERATED. ALL SAFETY MEASURES IN PLACE. CALL LIGHT WITHIN REACH AT ALL TIMES. WILL CONTINUE TO MONITOR.
[2016-07-27 20:00] VITALS: BP 119/71
[2016-07-28] MEDS: HYDROMORPHONE INJ 2 MG/ML DISP.SYRIN IV PRN ×6 (01:46→20:22)
[2016-07-28] MEDS: IV NS 0.9% 1,000 ML IV PRN ×2 (01:46→10:52)
[2016-07-28] MEDS: VANCOMYCIN 1 GM in IV D5W 250 ML IV SCH ×3 (01:46→17:13)
[2016-07-28 04:00] VITALS: BP 123/69
--- NOTE | 2016-07-28 06:48 | NUR ---
MS RN CLOSING NOTE PT REMAINED STABLE DURING SHIFT. PAIN MEDICATION GIVEN Q3H NEEDED. ALL NEEDS ATTENDED TO PROMPTLY. CALL LIGHT WITHIN EASY REACH AT ALL TIMES. WILL ENDORSE TO NEXT SHIFT FOR SOM.
[2016-07-28 07:21] LABS: CALCIUM, SERUM 8.3 mg/dL (8.5-10.1); CREATININE 0.6 mg/dL (0.6-1.3); MAGNESIUM 1.7 mg/dL (1.8-2.4); POTASSIUM 3.8 mmol/L (3.5-5.1)
[2016-07-28 08:00] VITALS: BP 116/75
[2016-07-28] MEDS: PROSOURCE / PROSTAT (PYXIS) 30 ML UDC GT SCH ×2 (08:11→16:23)
[2016-07-28] MEDS: RIVAROXABAN 15 MG TABLET PO SCH ×2 (08:11→16:22)
[2016-07-28] MEDS: GABAPENTIN 300 MG CAPSULE PO SCH ×3 (08:12→16:22)
[2016-07-28] MEDS: PANTOPRAZOLE 40 MG TABLET.DR PO SCH (08:12)
[2016-07-28] MEDS: FOLIC ACID 1 MG TABLET PO SCH (08:12)
[2016-07-28] MEDS: LACTOBACILLUS RHAMNOSUS GG 1 EACH CAP.SPRINK PO SCH ×2 (08:12→16:22)
[2016-07-28] MEDS: HYDROGEL DRESSING 90 GM TUBE TP SCH (09:00)
[2016-07-28] MEDS ORDERED: SECONDARY IV SET 1 EA INFUS.SET MC ONE (10:19)
[2016-07-28] MEDS: Magnesium 1GM/D5W 100ML PREMIX 100 ML IV SCH ×2 (10:24→11:27)
[2016-07-28] MEDS: MUPIROCIN OINT 2% 22 GM TUBE SCH ×2 (11:03→23:08)
[2016-07-28 12:00] VITALS: BP 126/75
[2016-07-28] MEDS: LEVOFLOXACIN (750 MG) 750 MG TABLET PO SCH (16:22)
[2016-07-28] MEDS: FLUCONAZOLE (100 MG) 100 MG TABLET PO SCH (18:26)
[2016-07-28 20:00] VITALS: BP 133/73
[2016-07-29] MEDS: HYDROMORPHONE INJ 2 MG/ML DISP.SYRIN IV PRN ×10 (01:14→23:06)
[2016-07-29] MEDS ORDERED: HYDROMORPHONE INJ 2 MG/ML DISP.SYRIN ONE ×3 (01:20→05:38)
[2016-07-29] MEDS: VANCOMYCIN 1 GM in IV D5W 250 ML IV SCH ×3 (01:46→17:14)
[2016-07-29 04:00] VITALS: BP_SYST 124; BP_SYST 127; BP_DIAS 74
--- NOTE | 2016-07-29 07:15 | NUR ---
RN INITIAL NOTE PT RECEIVED IN BED, RESTING COMFORTABLY. AWAKE, ALERT AND ORIENTED. ABLE TO MAKE NEEDS KNOWN. NO S/S OF PAIN OR DISCOMFORT. RESPIRATIONS ARE EVEN AND UNLABORED. NO S/S OF RESPIRATORY DISTRESS OR SOB. SKIN IS WARM AND DRY TO TOUCH. IV SITE FLUSHED AND PATENT. DRESSING C/D/I. WOUND DRESSINGS C/D/I. SUPRAPUBIC CATHETER DRAINING TO GRAVITY. ISOLATION PRECAUTIONS OBSERVED. SAFETY PRECAUTIONS IMPLEMENTED. BED IN LOCKED, LOW POSITION. TWO SIDE RAILS UP. BELONGINGS AND CALL LIGHT WITHIN REACH. WILL CONTINUE TO MONITOR.
[2016-07-29 07:33] LABS: CALCIUM, SERUM 8.5 mg/dL (8.5-10.1); CREATININE 0.7 mg/dL (0.6-1.3); POTASSIUM 4.3 mmol/L (3.5-5.1)
--- NOTE | 2016-07-29 07:36 | NUR ---
PT CONTINUE TO HAVE PAIN ,DILAUDID CHANGED TO Q2 HRS 2 MG .WITH GOOD RELIEF AND PT SLEPT WELL AFTER PAIN SHOT GIVEN. MIDLINE DRAWS BLOOD WELL ,LABS ALL DRAWN, VANCO TROUGH 17 AND CONTINUE WITH SAME DOSE.WOUND DRESSING CHANGED , IV FLUIDS D/CD ,VSS,AFEBRILE ,ALL NEEDS ATENDED,CALL LIGHT AT REACHED.
[2016-07-29 08:00] VITALS: BP_SYST 119; BP_SYST 137; BP_DIAS 43; BP_DIAS 71
[2016-07-29] MEDS: PROSOURCE / PROSTAT (PYXIS) 30 ML UDC PO SCH ×2 (08:27→16:22)
[2016-07-29] MEDS: LACTOBACILLUS RHAMNOSUS GG 1 EACH CAP.SPRINK PO SCH ×2 (08:27→16:22)
[2016-07-29] MEDS: PANTOPRAZOLE 40 MG TABLET.DR PO SCH (08:27)
[2016-07-29] MEDS: GABAPENTIN 300 MG CAPSULE PO SCH ×3 (08:27→16:22)
[2016-07-29] MEDS: FOLIC ACID 1 MG TABLET PO SCH (08:27)
[2016-07-29] MEDS: RIVAROXABAN 15 MG TABLET PO SCH ×2 (08:28→16:47)
[2016-07-29] MEDS: HYDROGEL DRESSING 90 GM TUBE TP SCH (08:29)
[2016-07-29] MEDS: MUPIROCIN OINT 2% 22 GM TUBE SCH ×2 (10:04→23:34)
[2016-07-29] MEDS ORDERED: Magnesium 1GM/D5W 100ML PREMIX 100 ML IV SCH (14:00)
[2016-07-29 16:00] VITALS: BP 125/73
[2016-07-29] MEDS: LEVOFLOXACIN (750 MG) 750 MG TABLET PO SCH (16:22)
[2016-07-29] MEDS: FLUCONAZOLE (100 MG) 100 MG TABLET PO SCH (18:18)
--- NOTE | 2016-07-29 19:14 | NUR ---
RN CLOSING NOTE PT RESTING IN BED COMFORTABLY. ALL MD ORDERS CARRIED OUT. PATIENT KEPT CLEAN AND DRY. SAFETY PRECAUTIONS IN PLACE AT ALL TIMES. WILL GIVE REPORT TO PM RN FOR SOM.
[2016-07-29 20:00] VITALS: BP 125/73
[2016-07-29] MEDS ORDERED: MUPIROCIN OINT 2% 22 GM TUBE ONE (23:27)
[2016-07-30] MEDS: VANCOMYCIN 1 GM in IV D5W 250 ML IV SCH ×3 (02:52→18:42)
[2016-07-30 04:00] VITALS: BP 120/75
[2016-07-30] MEDS: HYDROMORPHONE INJ 2 MG/ML DISP.SYRIN IV PRN ×9 (04:25→22:39)
[2016-07-30] MEDS: PANTOPRAZOLE 40 MG TABLET.DR PO SCH (07:30)
[2016-07-30 08:00] VITALS: BP 111/68
[2016-07-30 09:10] LABS: CALCIUM, SERUM 8.6 mg/dL (8.5-10.1); CREATININE 0.7 mg/dL (0.6-1.3); MAGNESIUM 1.6 mg/dL (1.8-2.4); PHOSPHORUS 3.8 mg/dL (2.5-4.9); POTASSIUM 4.3 mmol/L (3.5-5.1)
[2016-07-30] MEDS: FOLIC ACID 1 MG TABLET PO SCH (09:20)
[2016-07-30] MEDS: HYDROGEL DRESSING 90 GM TUBE TP SCH (09:20)
[2016-07-30] MEDS: GABAPENTIN 300 MG CAPSULE PO SCH ×3 (09:20→17:11)
[2016-07-30] MEDS: RIVAROXABAN 15 MG TABLET PO SCH ×2 (09:23→17:18)
[2016-07-30] MEDS: LACTOBACILLUS RHAMNOSUS GG 1 EACH CAP.SPRINK PO SCH ×2 (09:26→17:11)
[2016-07-30] MEDS: PROSOURCE / PROSTAT (PYXIS) 30 ML UDC PO SCH ×2 (09:26→17:11)
[2016-07-30] MEDS: MUPIROCIN OINT 2% 22 GM TUBE SCH ×2 (11:20→22:40)
[2016-07-30] MEDS: Magnesium 1GM/D5W 100ML PREMIX 100 ML IV SCH ×2 (15:00→17:10)
[2016-07-30] MEDS: LEVOFLOXACIN (750 MG) 750 MG TABLET PO SCH (17:11)
[2016-07-30] MEDS ORDERED: IV SET PRIMARY PUMP SET 1 EA INFUS.SET MC ONE (18:33)
[2016-07-30] MEDS ORDERED: SECONDARY IV SET 1 EA INFUS.SET MC ONE (18:33)
[2016-07-30] MEDS ORDERED: IV NS 0.9% 250 ML IV ONE (18:33)
[2016-07-30] MEDS: FLUCONAZOLE (100 MG) 100 MG TABLET PO SCH (18:42)
--- NOTE | 2016-07-30 19:40 | NUR ---
MS RN NOTE PT IN BED A/O X 4, NO SOB NOTED. C/O PAIN IN LT SHOULDER 11/16, DILAUDID 2 MG IVP GIVEN. VSS. SUPRAPUBIC CATH INTACT AND PATENT DRAINING YELLOWISH COLOR URINE. SIDE RAILS UP X 3 AND CALL LIGHT WITHIN REACH. CONTINUE TO MONITOR HIM.
[2016-07-30 20:00] VITALS: BP_SYST 135; BP_DIAS 72; BP_DIAS 75
[2016-07-31] MEDS: HYDROMORPHONE INJ 2 MG/ML DISP.SYRIN IV PRN ×10 (00:42→21:40)
[2016-07-31] MEDS: VANCOMYCIN 1 GM in IV D5W 250 ML IV SCH ×3 (02:24→17:23)
[2016-07-31 04:00] VITALS: BP 120/77
[2016-07-31 06:19] LABS: CALCIUM, SERUM 8.9 mg/dL (8.5-10.1); CREATININE 0.7 mg/dL (0.6-1.3)
--- NOTE | 2016-07-31 07:01 | NUR ---
MS RN NOTE PT IN BED ASLEEP, AROUSABLE. NO CHANGE IN CONDITION. NO DISTRESS OR DISCOMFORT NOTED. MIDLINE DOUGLAS INTACT AND PATENT TKO, NO S/S OF INFILTRATION NOTED. SUPRAPUBIC CATH INTACT AND PATENT DRAINING WELL. REPOSITIONED HIM Q2H. KEPT HIM DRY AND CLEAN. SIDE RAILS UP X 2 AND CALL LIGHT WITHIN REACH. WILL ENDORSE TO DAY SHIFT NURSE FOR CONTINUE TO CARE.
--- NOTE | 2016-07-31 07:25 | NUR ---
MS RN OPENING RECEIVED PATIENT A/OX4 SLEEPING NO S/S RESPIRATORY DISTRESS, PAIN OR SOB. PATIENT AWAKE TO LIGHT TOUCH. PATIENT STATES NO NEEDS AT THIS TIME. SUPRAPUBIC CATH PRESENT. WOUND CARE WILL BE COMPLETED TODAY FOR PATIENT WHEN HE WILL ALLOW. ASSISTED PATIENT TO OFFLOAD HEELS AND ELBOWS AND EDUCATED ON IMPORTANCE OF TURNING Q2H AND OFFLOADING SACRUM. PATIENT WITH CALL LIGHT IN REACH, BED LOWERED AND LOCKED, RAILS UPX3 FOR SAFETY AND WILL ROUND Q2H OR LESS PER NEEDS.
[2016-07-31 08:00] VITALS: BP 108/65
[2016-07-31] MEDS: PROSOURCE / PROSTAT (PYXIS) 30 ML UDC PO SCH ×2 (08:24→17:07)
[2016-07-31] MEDS: GABAPENTIN 300 MG CAPSULE PO SCH ×3 (08:24→17:07)
[2016-07-31] MEDS: HYDROGEL DRESSING 90 GM TUBE TP SCH (08:24)
[2016-07-31] MEDS: FOLIC ACID 1 MG TABLET PO SCH (08:24)
[2016-07-31] MEDS: PANTOPRAZOLE 40 MG TABLET.DR PO SCH (08:24)
[2016-07-31] MEDS: LACTOBACILLUS RHAMNOSUS GG 1 EACH CAP.SPRINK PO SCH ×2 (08:24→17:07)
[2016-07-31] MEDS: RIVAROXABAN 15 MG TABLET PO SCH ×2 (08:30→17:12)
[2016-07-31] MEDS: Z GUARD REMEDY 2 OZ OINT TP PRN (08:30)
--- NOTE | 2016-07-31 09:52 | NUR ---
MS RN NOTES CONFIRMED WITH LAB WE ARE NEEDING ANOTHER URINE SAMPLE.
[2016-07-31] MEDS: MUPIROCIN OINT 2% 22 GM TUBE SCH ×2 (10:11→23:05)
--- NOTE | 2016-07-31 12:15 | NUR ---
MS RN NOTES DR KIM AT BEDSIDE. WANTS CONSENT FOR SERIAL DEBRIDEMENT OF BUTTOCK WOUNDS. PATIENT SIGNED CONSENT.
[2016-07-31 16:00] VITALS: BP 120/78
--- NOTE | 2016-07-31 16:10 | NUR ---
MS RN NOTES PATIENT STATES HIS PAIN IN LEFT ARM HAS MOVED UP HIS ARM. NOTIFIED HELEN AND ORDER REPEAT US OF LEFT UPPER EXTREMITY
[2016-07-31] MEDS: LEVOFLOXACIN (750 MG) 750 MG TABLET PO SCH (17:07)
[2016-07-31] MEDS ORDERED: IV NS 0.9% 250 ML IV ONE (17:10)
[2016-07-31] MEDS: FLUCONAZOLE (100 MG) 100 MG TABLET PO SCH (18:18)
--- NOTE | 2016-07-31 18:38 | NUR ---
MS RN CLOSING PATIENT STABLE NO COMPLAINTS OF SOB, DIFFICULTY BREATHING AND PAIN MANAGED WITH PRN MEDICATIONS AND NON PHARM MEASURES. PATIENT PAIN GOAL 4/10 AND IS MET WITH PRN SCHEDULE. PATIENT RESTED WELL THROUGHOUT THE DAY. TURNED Q2H WITH ASSIST AND HEELS AND ELBOWS OFFLOADED. PATIENT STATES NO NEEDS AT THIS TIME. ALL DUE MEDS GIVEN AND ALL NEEDS MET. CALL LIGHT IN REACH, BED LOWERED AND LOCKED, RAILS UPX3 FOR SAFETY AND WILL ENDORSE TO RN FOR SOM
--- NOTE | 2016-07-31 19:40 | NUR ---
MS RN NOTE PT IN BED SEMIFOWLER, A/O X 4, NO SOB NOTED. STATES "I HAD PAIN IN LT SHOULDER AREA 11/16, NON RADIATING". DILAUDID 2 MG IVP GIVEN. VSS. SUPRAPUBIC CATH INTACT AND PATENT DRAINING YELLOWISH COLOR URINE. FRIENDS AT BED SIDE. KEPT HIS BILATERAL HEELS AND LT BUTTOCK OFFLOADED. SIDE RAILS UP X 3 AND CALL LIGHT WITHIN REACH. CONTINUE TO MONITOR HIM. 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
[2016-07-31 20:00] VITALS: BP 129/72
[2016-08-01] MEDS: HYDROMORPHONE INJ 2 MG/ML DISP.SYRIN IV PRN ×9 (00:21→23:21)
[2016-08-01] MEDS: VANCOMYCIN 1 GM in IV D5W 250 ML IV SCH ×3 (02:04→17:05)
--- NOTE | 2016-08-01 03:30 | NUR ---
MS RN NOTE PT C/O PAIN IN LT SHOULDER, 11/16, DILAUDID 2 MG IVP GIVEN. CONTINUE TO MONITOR. PT IS ASKING AROUND THE CLOCK. AND WANTS EVERY 2 HOURS. DUE TO PAIN IN LT SHOULDER. PAIN MEDS GIVEN. VSS.
[2016-08-01 04:00] VITALS: BP 125/70
[2016-08-01 04:09] VITALS: BP 125/70
[2016-08-01 05:59] LABS: BASOPHILS # (AUTO) 0.1 /CMM (0.0-0.2); BASOPHILS % (AUTO) 0.7 % (0.0-2.0); EOSINOPHILS # (AUTO) 0.2 /CMM (0.0-0.7); EOSINOPHILS % (AUTO) 2.5 % (0.0-6.0); HEMATOCRIT 34 % (39-51); HEMOGLOBIN 10.6 g/dL (13.5-17.5); LYMPHOCYTES # (AUTO) 2.4 /CMM (0.8-4.8); LYMPHOCYTES % (AUTO) 24.3 % (20.0-44.0); MEAN CORPUSCULAR HEMOGLOBIN 24 PG (26.0-33.0); MEAN CORPUSCULAR HGB CONC 32 g/dl (31.0-36.0); MEAN CORPUSCULAR VOLUME 76 fL (80-96); MONOCYTES # (AUTO) 0.6 /CMM (0.1-1.30); MONOCYTES % (AUTO) 6.3 % (2.0-12.0); NEUTROPHILS # (AUTO) 6.6 /CMM (1.8-8.9); NEUTROPHILS % (AUTO) 66.2 % (43.0-81.0); PLATELET COUNT (AUTO) 504 /CMM (150-450); RDW COEFFICIENT OF VARIATION 22.4 (11.5-15.0); RED BLOOD CELL COUNT(AUTO) 4.42 MIL/uL (4.5-6.0); WHITE BLOOD COUNT (AUTO) 9.9 K/uL (4.3-11.0)
[2016-08-01 06:06] LABS: CALCIUM, SERUM 8.7 mg/dL (8.5-10.1); CREATININE 0.8 mg/dL (0.6-1.3); POTASSIUM 3.7 mmol/L (3.5-5.1)
--- NOTE | 2016-08-01 06:37 | NUR ---
MS RN NOTE PT AWAKE IN BED, NO DISTRESS OR DISCOMFORT NOTED. DENIES PAIN AT THIS TIME. PAIN MED GIVEN ORDERED. IV SITE INTACT AND PATENT TKO, NO S/S OF INFILTRATION NOTED. SUPRAPUBIC CATH INTACT AND PATENT DRAINING YELLOWISH COLOR URINE. REPOSITION HIM Q2H. KEPT HIM DRY AND CLEAN. ALL NEEDS ATTENDED. WILL ENDORSE TO DAY SHIFT NURSE FOR CONTINUE TO CARE.
--- NOTE | 2016-08-01 07:15 | NUR ---
MS RN NOTE: RECEIVED PATIENT WHILE RESTING IN BED, A/O X3. BREATHING EVEN AND UNLABORED ON ROOM AIR. NO SOB, PATIENT REPORTING 8/10 PAIN ON LEFT SHOULDER, REQUESTING PAIN MEDICATION ONCE DUE. PATIENT MADE COMFORTABLE, ALL OTHER NEEDS ATTENDED TO, SAFETY MEASURES IN PLACE, WILL CONTINUE TO MONITOR.
--- NOTE | 2016-08-01 07:30 | NUR ---
MS RN NOTE: DILAUDID ADMINISTERED VIA IV, 2MG FOR 8/10 PAIN ON LEFT SHOULDER. WILL CONTINUE TO MONITOR.
[2016-08-01] MEDS: PANTOPRAZOLE 40 MG TABLET.DR PO SCH (07:32)
[2016-08-01 08:00] VITALS: BP 118/73
[2016-08-01] MEDS: FOLIC ACID 1 MG TABLET PO SCH (08:07)
[2016-08-01] MEDS: RIVAROXABAN 15 MG TABLET PO SCH ×2 (08:07→17:07)
[2016-08-01] MEDS: LACTOBACILLUS RHAMNOSUS GG 1 EACH CAP.SPRINK PO SCH ×2 (08:07→17:05)
[2016-08-01] MEDS: GABAPENTIN 300 MG CAPSULE PO SCH ×3 (08:07→17:05)
[2016-08-01] MEDS: PROSOURCE / PROSTAT (PYXIS) 30 ML UDC PO SCH ×2 (08:08→17:05)
[2016-08-01] MEDS: HYDROGEL DRESSING 90 GM TUBE TP SCH (08:12)
[2016-08-01] MEDS: MUPIROCIN OINT 2% 22 GM TUBE SCH ×2 (10:09→23:23)
--- NOTE | 2016-08-01 10:09 | NUR ---
MS RN NOTE: PATIENT C/O SEVERE PAIN IN LEFT SHOULDER AGAIN, REQUESTING DILAUDID. DILAUDID ADMINISTERED VIA IV. NO COMPLICATIONS NOTED, WILL CONTINUE TO MONITOR.
--- NOTE | 2016-08-01 10:15 | NUR ---
MS RN NOTE: WOUND CARE RENDERED, TOLERATED WELL. WILL CONTINUE TO MONITOR.
--- NOTE | 2016-08-01 12:25 | NUR ---
MS RN NOTE: PATIENT C/O SEVERE PAIN IN LEFT SHOULDER ONCE AGAIN, REQUESTING DILAUDID. DILAUDID ADMINISTERED VIA IV. NO COMPLICATIONS NOTED, WILL CONTINUE TO MONITOR.
[2016-08-01 16:00] VITALS: BP 113/74
[2016-08-01] MEDS ORDERED: IV NS 0.9% 250 ML IV ONE (16:59)
[2016-08-01] MEDS: LEVOFLOXACIN (750 MG) 750 MG TABLET PO SCH (17:05)
--- NOTE | 2016-08-01 17:06 | NUR ---
MS RN NOTE: PATIENT ONCE AGAIN REQUESTING PAIN MEDICATION, D/T 8/10 PAIN IN LEFT SHOULDER. IV DILAUDID ADMINISTERED, WILL CONTINUE TO MONITOR.
[2016-08-01] MEDS: FLUCONAZOLE (100 MG) 100 MG TABLET PO SCH (18:30)
--- NOTE | 2016-08-01 19:00 | NUR ---
MS RN NOTE: PATIENT RESTING IN BED, A/OX 3. BREATHING EVEN AND UNLABORED ON ROOM AIR. NO SOB, NO DISTRESS. PATIENT'S NEEDS ATTENDED TO, SAFETY MEASURES IN PLACE, WILL ENDORSE TO MENTAL RETARDATION NURSE FOR SOM.
--- NOTE | 2016-08-01 19:45 | NUR ---
MS RN NOTE PT IN BED ASLEEP, AROUSABLE. A/O X 4, NO SOB, NO DISTRESS OR DISCOMFORT NOTED. C/O MINOR PAIN IN LT SHOULDER AT THIS TIME 05/19. DOUGLAS MIDLINE INTACT AND PATENT #18 G TKO, NO S/S OF INFILTRATION NOTED. SUPRAPUBIC CATH INTACT AND PATENT DRAINING YELLOWISH COLOR URINE. REPOSITION HIM FOR SKIN MANAGEMENT. SIDE RAILS UP 2 AND CALL LIGTH WITHIN REACH. VSS. CONTINUE TO MONITOR HIM.
[2016-08-01 20:00] VITALS: BP 130/68
[2016-08-02] MEDS ORDERED: FOSFOMYCIN TROMETHAMINE 3 G/PKT PACKET ONE (01:07)
[2016-08-02] MEDS: VANCOMYCIN 1 GM in IV D5W 250 ML IV SCH ×3 (01:17→18:22)
[2016-08-02] MEDS: HYDROMORPHONE INJ 2 MG/ML DISP.SYRIN IV PRN ×9 (01:25→23:30)
[2016-08-02 04:00] VITALS: BP 124/75
[2016-08-02] MEDS: Z GUARD REMEDY 2 OZ OINT TP PRN (05:28)
[2016-08-02] MEDS: HYDROGEL DRESSING 90 GM TUBE TP PRN (05:28)
--- NOTE | 2016-08-02 05:28 | NUR ---
MS RN NOTE BED BATH GIVEN. ALSO ALL THE WOUND DRESSING DONE. PT TOLERATED WELL. REPOSITION HIM Q2H. KEPT HIM DRY AND CLEAN. PT DID LARGE BM.
--- NOTE | 2016-08-02 05:35 | NUR ---
MS RN NOTE STOOL SPECIMEN COLLECTED AND SENT TO LAB.
--- NOTE | 2016-08-02 06:00 | NUR ---
MS RN NOTE NURSE GEOVANNA CHANGED THE MIDLINE DRESSING.
--- NOTE | 2016-08-02 06:38 | NUR ---
MS RN NOTE PT IN BED ASLEEP, AROUSABLE. NO DISTRESS OR DISCOMFORT NOTED. DENIES PAIN AT THIS TIME. PAIN MED GIVEN Q2H DURING THE SHIFT. PAIN SCALE WAS 8/10, PAIN WAS RELIEVED FOR SHORT TIME AND THEN COMES BACK. PT STATES "WITH MEDICATION Q2H IT HELPS TO RELIEVE THE PAIN IN LT SHOULDER". MID LINE IN DOUGLAS INTACT AND PATENT. REPOSITION HIM Q2H. KEPT HIM DRY AND CLEAN. SIDE RAILS UP X 2 AND CALL LIGHT WITHIN REACH. VSS. WILL ENDORSE TO DAY SHIFT NURSE FOR CONTINUE TO CARE.
[2016-08-02 07:08] LABS: CALCIUM, SERUM 8.9 mg/dL (8.5-10.1); CREATININE 0.8 mg/dL (0.6-1.3); POTASSIUM 3.7 mmol/L (3.5-5.1)
[2016-08-02 08:00] VITALS: BP 120/77
--- NOTE | 2016-08-02 08:00 | NUR ---
MS RN NOTE PT IN BED ASLEEP, AROUSABLE. A/O X 4, NO SOB, NO DISTRESS OR DISCOMFORT NOTED. WITH C/O SEVERE PAIN IN LT SHOULDER AT THIS TIME. DOUGLAS MIDLINE INTACT AND PATENT #18 G TKO, NO S/S OF INFILTRATION NOTED. SUPRAPUBIC CATH INTACT AND PATENT DRAINING YELLOWISH COLOR URINE. REPOSITIONED FOR SKIN MANAGEMENT. SIDE RAILS UP 2 AND CALL LIGHT WITHIN REACH. VSS. WILL CONTINUE TO MONITOR
[2016-08-02] MEDS: PROSOURCE / PROSTAT (PYXIS) 30 ML UDC PO SCH ×2 (08:40→18:15)
[2016-08-02] MEDS: GABAPENTIN 300 MG CAPSULE PO SCH ×3 (08:41→18:16)
[2016-08-02] MEDS: FOLIC ACID 1 MG TABLET PO SCH (08:41)
[2016-08-02] MEDS: LACTOBACILLUS RHAMNOSUS GG 1 EACH CAP.SPRINK PO SCH ×2 (08:41→18:14)
[2016-08-02] MEDS: PANTOPRAZOLE 40 MG TABLET.DR PO SCH (08:41)
[2016-08-02] MEDS: RIVAROXABAN 15 MG TABLET PO SCH ×2 (08:46→18:15)
[2016-08-02] MEDS: MICAFUNGIN SODIUM 100 MG in IV NS 0.9% 100 ML IV SCH (08:48)
[2016-08-02] MEDS: HYDROGEL DRESSING 90 GM TUBE TP SCH (08:50)
[2016-08-02] MEDS ORDERED: FOSFOMYCIN TROMETHAMINE 3 G/PKT PACKET PO ONE (10:00)
[2016-08-02] MEDS ORDERED: DOSE PER PHARMACY MICAFUNGIN 1 EA XX PRN (10:00)
[2016-08-02] MEDS: MUPIROCIN OINT 2% 22 GM TUBE SCH ×2 (10:02→23:42)
[2016-08-02 16:00] VITALS: BP 125/81
[2016-08-02] MEDS: LEVOFLOXACIN (750 MG) 750 MG TABLET PO SCH (18:16)
--- NOTE | 2016-08-02 19:06 | NUR ---
PT RESTING IN BED AND REPOSITIONED EVERY TWO HRS.PAIN MGT EFFECTIVE WITH DILAUDID 2MG IV Q 2HRS PRN.
[2016-08-02 20:00] VITALS: BP 126/85
[2016-08-03] MEDS: HYDROMORPHONE INJ 2 MG/ML DISP.SYRIN IV PRN ×8 (01:28→23:54)
[2016-08-03] MEDS: VANCOMYCIN 1 GM in IV D5W 250 ML IV SCH ×3 (01:28→19:22)
[2016-08-03 04:00] VITALS: BP 123/79
[2016-08-03 06:11] LABS: CALCIUM, SERUM 8.9 mg/dL (8.5-10.1); CREATININE 0.6 mg/dL (0.6-1.3); POTASSIUM 3.7 mmol/L (3.5-5.1)
--- NOTE | 2016-08-03 07:30 | NUR ---
initial note patient resting in bed a+ox3, breathing on room air and LOC wnl. 8/10 shoulder pain. suprapubic cath intact. john midline patent, no complications. dressing cdi. BL LE dressing cdi. discussed plan of care, assessed needs. repositioned. call light in reach.
[2016-08-03 08:00] VITALS: BP 125/81
[2016-08-03] MEDS: LACTOBACILLUS RHAMNOSUS GG 1 EACH CAP.SPRINK PO SCH ×2 (09:02→16:21)
[2016-08-03] MEDS: GABAPENTIN 300 MG CAPSULE PO SCH ×3 (09:02→16:21)
[2016-08-03] MEDS: PANTOPRAZOLE 40 MG TABLET.DR PO SCH (09:02)
[2016-08-03] MEDS: PROSOURCE / PROSTAT (PYXIS) 30 ML UDC PO SCH ×2 (09:02→16:21)
[2016-08-03] MEDS: MICAFUNGIN SODIUM 100 MG in IV NS 0.9% 100 ML IV SCH (09:02)
[2016-08-03] MEDS: HYDROGEL DRESSING 90 GM TUBE TP SCH (09:03)
[2016-08-03] MEDS: RIVAROXABAN 15 MG TABLET PO SCH ×2 (09:03→16:22)
[2016-08-03] MEDS: FOLIC ACID 1 MG TABLET PO SCH (09:04)
[2016-08-03] MEDS: MUPIROCIN OINT 2% 22 GM TUBE SCH ×2 (10:09→23:23)
[2016-08-03] MEDS: LEVOFLOXACIN (750 MG) 750 MG TABLET PO SCH (16:21)
--- NOTE | 2016-08-03 19:55 | NUR ---
CLOSING NOTE LEFT PATIENT IN STABLE CONDITION. NO ADVERSE EFFECTS FROM NARCOTIC ADMIN. REPOSITIONED PATIENT Q2 HOURS, PROVIDED WOUND CARE. BREATHING AND LOC WNL. DOUGLAS MID LINE PATENT, DRESSING CDI. CALL LIGHT IN REACH. ENDORSED TO NIGHT NURSE
[2016-08-03 20:00] VITALS: BP 131/90
[2016-08-04] MEDS: HYDROMORPHONE INJ 2 MG/ML DISP.SYRIN IV PRN ×7 (02:06→17:29)
[2016-08-04] MEDS: VANCOMYCIN 1 GM in IV D5W 250 ML IV SCH ×3 (02:06→18:59)
[2016-08-04 04:00] VITALS: BP 143/82
[2016-08-04 07:12] LABS: CALCIUM, SERUM 8.9 mg/dL (8.5-10.1); CREATININE 0.7 mg/dL (0.6-1.3); POTASSIUM 3.8 mmol/L (3.5-5.1)
--- NOTE | 2016-08-04 07:15 | NUR ---
RN INITIAL NOTE PT RECEIVED IN BED, AWAKE, ALERT AND ORIENTED. ABLE TO MAKE NEEDS KNOWN. RESPIRATIONS ARE EVEN AND UNLABORED. NO S/S OF RESPIRATORY DISTRESS OR SOB. SATING WELL ON ROOM AIR. SKIN IS WARM AND DRY TO TOUCH. IV SITE FLUSHED AND PATENT. SUPRAPUBIC CATHETER DRAINING TO GRAVITY. ISOLATION PRECAUTIONS OBSERVED. SAFETY MEASURES IMPLEMENTED. BED IN LOCKED LOW POSITION. BELONGINGS AND CALL LIGHT WITHIN EASY REACH. WILL CONTINUE TO MONITOR
[2016-08-04 08:00] VITALS: BP 150/84
[2016-08-04] MEDS: LACTOBACILLUS RHAMNOSUS GG 1 EACH CAP.SPRINK PO SCH ×2 (08:00→17:29)
[2016-08-04] MEDS: PROSOURCE / PROSTAT (PYXIS) 30 ML UDC PO SCH ×2 (08:00→17:29)
[2016-08-04] MEDS: GABAPENTIN 300 MG CAPSULE PO SCH ×3 (08:00→17:29)
[2016-08-04] MEDS: FOLIC ACID 1 MG TABLET PO SCH (08:00)
[2016-08-04] MEDS: MICAFUNGIN SODIUM 100 MG in IV NS 0.9% 100 ML IV SCH (08:01)
[2016-08-04] MEDS: RIVAROXABAN 15 MG TABLET PO SCH ×2 (08:04→17:30)
[2016-08-04] MEDS: PANTOPRAZOLE 40 MG TABLET.DR PO SCH (08:04)
[2016-08-04] MEDS: HYDROGEL DRESSING 90 GM TUBE TP SCH (08:05)
[2016-08-04] MEDS: MUPIROCIN OINT 2% 22 GM TUBE SCH ×2 (11:27→22:01)
[2016-08-04] MEDS ORDERED: SECONDARY IV SET 1 EA INFUS.SET MC ONE (15:07)
[2016-08-04] MEDS: SOD FERRIC GLUC 125 MG in IV NS 0.9% 100 ML IV SCH (15:32)
[2016-08-04] MEDS: LEVOFLOXACIN (750 MG) 750 MG TABLET PO SCH (17:29)
[2016-08-04] MEDS ORDERED: IV NS 0.9% 250 ML IV ONE (18:48)
[2016-08-04] MEDS: ONDANSETRON HCL/PF 4 MG/2 ML VIAL IVP PRN (18:59)
--- NOTE | 2016-08-04 19:15 | NUR ---
RN INITIAL NOTES RECEIVED PATIENT IN BED, AWAKE AND ALERT. PATIENT WITH NO ACUTE DISTRESS. DENIES ANY PAIN AT THIS TIME. ON ROOM AIR, NO RESPIRATORY DISTRESS NOTED. WITH SUPRAPUBIC CATHETER, INTACT AND DRAINING WELL WITH YELLOW URINE. DOUGLAS MIDLINE, FLUSHED AND KEPT PATENT, ON TKO. NEEDS ANTICIPATED AND MET. SAFETY AND COMFORT ENSURED. BED IN LOW AND LOCKED POSITION. CALL LIGHT IN REACH. WILL MONITOR.
--- NOTE | 2016-08-04 19:20 | NUR ---
RN CLOSING NOTE PT IN BED RESTING COMFORTABLY. ALL MD ORDERS CARRIED OUT. PT KEPT CLEAN AND DRY. SAFETY MEASURES IN PLACE AT ALL TIMES. REPORT GIVEN TO PM RN FOR SOM.
[2016-08-04 20:00] VITALS: BP 133/82
[2016-08-05] MEDS: HYDROMORPHONE INJ 2 MG/ML DISP.SYRIN IV PRN ×9 (00:05→23:37)
[2016-08-05] MEDS: VANCOMYCIN 1 GM in IV D5W 250 ML IV SCH ×3 (02:25→20:00)
[2016-08-05] MEDS ORDERED: IMIPENEM/CILASTATIN 500 MG/VIAL IV ONE (03:25)
[2016-08-05] MEDS ORDERED: SECONDARY IV SET 1 EA INFUS.SET MC ONE (04:23)
[2016-08-05] MEDS ORDERED: IV NS 0.9% 250 ML IV ONE (04:23)
[2016-08-05] MEDS ORDERED: IMIPENEM/CILASTATIN 1,000 MG in IV NS 0.9% 250 ML IV SCH (05:00)
[2016-08-05 06:13] LABS: BASOPHILS # (AUTO) 0.1 /CMM (0.0-0.2); BASOPHILS % (AUTO) 0.8 % (0.0-2.0); EOSINOPHILS # (AUTO) 0.2 /CMM (0.0-0.7); EOSINOPHILS % (AUTO) 2.2 % (0.0-6.0); HEMATOCRIT 36 % (39-51); HEMOGLOBIN 11.4 g/dL (13.5-17.5); LYMPHOCYTES # (AUTO) 2.2 /CMM (0.8-4.8); LYMPHOCYTES % (AUTO) 22.2 % (20.0-44.0); MEAN CORPUSCULAR HEMOGLOBIN 24 PG (26.0-33.0); MEAN CORPUSCULAR HGB CONC 32 g/dl (31.0-36.0); MEAN CORPUSCULAR VOLUME 76 fL (80-96); MONOCYTES # (AUTO) 0.6 /CMM (0.1-1.30); MONOCYTES % (AUTO) 6.3 % (2.0-12.0); NEUTROPHILS # (AUTO) 6.8 /CMM (1.8-8.9); NEUTROPHILS % (AUTO) 68.5 % (43.0-81.0); PLATELET COUNT (AUTO) 466 /CMM (150-450); RDW COEFFICIENT OF VARIATION 20.9 (11.5-15.0); RED BLOOD CELL COUNT(AUTO) 4.72 MIL/uL (4.5-6.0)
[2016-08-05 06:27] LABS: CALCIUM, SERUM 8.6 mg/dL (8.5-10.1); CREATININE 0.7 mg/dL (0.6-1.3); POTASSIUM 3.8 mmol/L (3.5-5.1)
--- NOTE | 2016-08-05 06:51 | NUR ---
RN CLOSING NOTES PATIENT WITH NO ACUTE DISTRESS AND CHANGE IN CONDITION OBSERVED OVERNIGHT. PATIENT MEDICATED FOR PAIN NEEDED PER PATIENT'S REQUESTS. PATIENT'S PAIN NOTED TO BE ON L ARM AND NECK, 8/. RELIEF FROM PAIN VERBALIZED, PAIN MANAGED WELL WITH CURRENT PAIN MANAGEMENT. WOUND TREATMENT RENDERED ORDERED. PATIENT TURNED AND REPOSITIONED. NEEDS ANTICIPATED AND MET. SAFETY AND COMFORT ENSURED AT ALL TIMES. CALL LIGHT IN REACH. WILL ENDORSE ACCORDINGLY FOR CONTINUITY OF CARE.
--- NOTE | 2016-08-05 07:40 | NUR ---
RN INITIAL NOTES: Received patient on bed during rounds, awake, alert and oriented x4, able to make needs known, call lights placed within reached, instructed to press call light when in need of any assistance, patient verbalized understanding of instructions. On RA, saturating well. With DOUGLAS midline flushed with NS and patent,NS TKO infusing well. NO SOB, No LOC, respirations are even and unlabored, no acute distress noted. With Suprapubic Catheter in placed draining well with yellow urine, no hematuria, no sediments, no foul odor noted. Kept clean and dry. Provided safety and comfort measures. NO pain or discomfort noted at this time. Turned and repositioned, offload heels as per protocol. To continue to monitor accordingly.
[2016-08-05 08:00] VITALS: BP_SYST 117; BP_SYST 133; BP_DIAS 66; BP_DIAS 79
[2016-08-05] MEDS: LACTOBACILLUS RHAMNOSUS GG 1 EACH CAP.SPRINK PO SCH ×2 (09:22→16:44)
[2016-08-05] MEDS: GABAPENTIN 300 MG CAPSULE PO SCH ×3 (09:22→16:44)
[2016-08-05] MEDS: PANTOPRAZOLE 40 MG TABLET.DR PO SCH (09:27)
[2016-08-05] MEDS: FOLIC ACID 1 MG TABLET PO SCH (09:27)
[2016-08-05] MEDS: PROSOURCE / PROSTAT (PYXIS) 30 ML UDC PO SCH ×2 (09:28→16:44)
[2016-08-05] MEDS: RIVAROXABAN 15 MG TABLET PO SCH (09:40)
[2016-08-05] MEDS: HYDROGEL DRESSING 90 GM TUBE TP SCH (09:40)
[2016-08-05] MEDS: MICAFUNGIN SODIUM 100 MG in IV NS 0.9% 100 ML IV SCH (09:41)
[2016-08-05] MEDS: MUPIROCIN OINT 2% 22 GM TUBE SCH ×2 (11:41→23:14)
[2016-08-05] MEDS: MEROPENEM 1 G in IV NS 0.9% 100 ML IV SCH ×2 (12:55→21:35)
[2016-08-05] MEDS: ENOXAPARIN SODIUM 60 MG/0.6 ML DISP.SYRIN SQ SCH (14:36)
[2016-08-05] MEDS: SOD FERRIC GLUC 125 MG in IV NS 0.9% 100 ML IV SCH (14:36)
[2016-08-05 16:00] VITALS: BP 113/80
--- NOTE | 2016-08-05 18:51 | NUR ---
RN NOTES: Patient remain stable within shift, no signs and symptoms of distress noted. Afebrile. Maintain HOB elevated, aspiration precaution observed. Encouraged increased oral fluid intake. Kept clean and dry. Turned and repositioned, offload heels as per protocol. Wound care done.To endorsed to next shift for continuity of care.
[2016-08-05 20:00] VITALS: BP 116/66
--- NOTE | 2016-08-05 20:00 | NUR ---
pt sleeping, snoring et did not attempt to wake up...iv infusing into rue @ tko w/o any s/s/x of infiltration noted....hob elevated...call light w/i reach...
[2016-08-06] MEDS: HYDROMORPHONE INJ 2 MG/ML DISP.SYRIN IV PRN ×7 (02:10→21:59)
[2016-08-06] MEDS: ENOXAPARIN SODIUM 60 MG/0.6 ML DISP.SYRIN SQ SCH ×2 (02:24→17:31)
[2016-08-06 04:00] VITALS: BP 142/83
[2016-08-06] MEDS: VANCOMYCIN 1 GM in IV D5W 250 ML IV SCH ×3 (04:26→19:43)
[2016-08-06] MEDS: MEROPENEM 1 G in IV NS 0.9% 100 ML IV SCH ×3 (05:31→21:59)
[2016-08-06] MEDS: PANTOPRAZOLE 40 MG TABLET.DR PO SCH (07:05)
[2016-08-06] MEDS: GABAPENTIN 300 MG CAPSULE PO SCH ×3 (07:58→17:30)
[2016-08-06 08:00] VITALS: BP 128/76
--- NOTE | 2016-08-06 08:00 | NUR ---
RN AM NOTES RECEIVED PATIENT AWAKE IN BED,WAITING FOR BREAKFAST. NO COMPLAINTS OF SOB OR DISTRESS AT THIS TIME. TOLERATING IV FLUIDS WELL. WILL CONTINUE TO MONITOR.
[2016-08-06 08:57] LABS: CALCIUM, SERUM 8.6 mg/dL (8.5-10.1); CREATININE 0.6 mg/dL (0.6-1.3); POTASSIUM 3.4 mmol/L (3.5-5.1)
[2016-08-06] MEDS: LACTOBACILLUS RHAMNOSUS GG 1 EACH CAP.SPRINK PO SCH ×2 (09:52→17:30)
[2016-08-06] MEDS: PROSOURCE / PROSTAT (PYXIS) 30 ML UDC PO SCH ×2 (09:52→17:31)
[2016-08-06] MEDS: FOLIC ACID 1 MG TABLET PO SCH (09:52)
[2016-08-06] MEDS: MICAFUNGIN SODIUM 100 MG in IV NS 0.9% 100 ML IV SCH (09:57)
[2016-08-06] MEDS: MUPIROCIN OINT 2% 22 GM TUBE SCH ×2 (11:00→23:36)
[2016-08-06] MEDS: HYDROGEL DRESSING 90 GM TUBE TP SCH (13:30)
[2016-08-06] MEDS: SOD FERRIC GLUC 125 MG in IV NS 0.9% 100 ML IV SCH (17:30)
--- NOTE | 2016-08-06 19:33 | NUR ---
RN PM NOTES RENDERED WOUND CARE AND BATH, COMPLETED IV INFUSIONS FOR TODAY. PATIENT TOLERATED WELL. PAIN MEDICATION ADMINISTERED, ABLE TO WEAN PATIENT TO 3.5 HOURS BETWEEN PAIN DOSES.WILL ENDORSE TO NEXT SHIFT.
[2016-08-06] MEDS ORDERED: IV NS 0.9% 250 ML IV ONE (19:44)
[2016-08-06] MEDS ORDERED: SECONDARY IV SET 1 EA INFUS.SET MC ONE (19:44)
[2016-08-06 20:00] VITALS: BP 115/71
--- NOTE | 2016-08-06 20:00 | NUR ---
SANDRA NOTE REMOVED 1450 FROM PLASENCIA. Addendum: 08/07/16 at 0421 by MONSTER CONNOR RN REMOVED 1450 ML FROM LUIS ANGEL
[2016-08-07] MEDS: HYDROMORPHONE INJ 2 MG/ML DISP.SYRIN IV PRN ×10 (00:23→21:53)
[2016-08-07] MEDS: ENOXAPARIN SODIUM 60 MG/0.6 ML DISP.SYRIN SQ SCH ×2 (03:02→13:43)
[2016-08-07 04:00] VITALS: BP 135/74
[2016-08-07] MEDS: VANCOMYCIN 1 GM in IV D5W 250 ML IV SCH ×3 (04:00→19:49)
[2016-08-07] MEDS: MEROPENEM 1 G in IV NS 0.9% 100 ML IV SCH ×3 (05:00→20:57)
[2016-08-07 05:38] LABS: CALCIUM, SERUM 8.5 mg/dL (8.5-10.1); CREATININE 0.7 mg/dL (0.6-1.3); POTASSIUM 3.7 mmol/L (3.5-5.1)
--- NOTE | 2016-08-07 06:32 | NUR ---
RN CLOSING NOTE PT DID NOT HAVE ANY SIGNFICANT CHANGE IN CONDITION DURING SHIFT. PT REMAINS IN NO ACUTE DISTRESS IN BED. WILL ENDORSE CARE TO AM RN FOR CONTINUITY OF CARE.
--- NOTE | 2016-08-07 07:39 | NUR ---
RN INITIAL NOTE PT RECEIVED IN BED RESTING COMFORTABLY. ALERT AND ORIENTED ABLE TO MAKE NEEDS KNOWN. REQUESTING PAIN MEDICATION. RESPIRATIONS ARE EVEN AND UNLABORED. NO S/S OF RESPIRATORY DISTRESS OR SOB. SATING WELL ON RA. PT HAS SUPRAPUBIC CATH DRAINING TO GRAVITY. RIGHT UPPER MIDLINE, FLUSHED AND PATENT. DRESSING C/D/I. ISOLATION PRECAUTIONS OBSERVED AT ALL TIMES. SAFETY PRECAUTIONS IMPLEMENTED. BED IN LOCKED, POSITION. TWO SIDE RAILS UP. CALL LIGHT WITHIN REACH. WILL CONTINUE TO MONITOR.
[2016-08-07 08:00] VITALS: BP 112/73
[2016-08-07] MEDS: PANTOPRAZOLE 40 MG TABLET.DR PO SCH (08:00)
[2016-08-07] MEDS: PROSOURCE / PROSTAT (PYXIS) 30 ML UDC PO SCH ×2 (09:40→17:42)
[2016-08-07] MEDS: FOLIC ACID 1 MG TABLET PO SCH (09:40)
[2016-08-07] MEDS: GABAPENTIN 300 MG CAPSULE PO SCH ×3 (09:40→17:41)
[2016-08-07] MEDS: MICAFUNGIN SODIUM 100 MG in IV NS 0.9% 100 ML IV SCH (09:40)
[2016-08-07] MEDS: HYDROGEL DRESSING 90 GM TUBE TP SCH (09:40)
[2016-08-07] MEDS: LACTOBACILLUS RHAMNOSUS GG 1 EACH CAP.SPRINK PO SCH ×2 (09:40→17:41)
[2016-08-07] MEDS: MUPIROCIN OINT 2% 22 GM TUBE SCH (11:05)
[2016-08-07] MEDS ORDERED: LACT1CAP72 PO (11:10)
[2016-08-07] MEDS ORDERED: HYDR8TAB2 PO (11:10)
[2016-08-07] MEDS ORDERED: DIAZ10TA4 PO (11:10)
[2016-08-07] MEDS ORDERED: ZOLP10TA2 PO (11:10)
[2016-08-07] MEDS ORDERED: TRAM50TA2 PO (11:10)
[2016-08-07] MEDS ORDERED: PANT40TA4 PO (11:10)
[2016-08-07] MEDS ORDERED: RIVA10TA PO (11:10)
[2016-08-07] MEDS ORDERED: GABA300C PO (11:10)
[2016-08-07 12:00] VITALS: BP 112/73
[2016-08-07] MEDS: SOD FERRIC GLUC 125 MG in IV NS 0.9% 100 ML IV SCH (14:30)
[2016-08-07 16:00] VITALS: BP 115/62
--- NOTE | 2016-08-07 18:47 | NUR ---
RN CLOSING NOTE PATIENT RESTING IN BED, COMFORTABLY. ALL MD ORDERS CARRIED OUT. PT KEPT CLEAN AND DRY. SAFETY MEASURES IN PLACE AT ALL TIMES. ISOLATION PRECAUTIONS OBSERVED AT ALL TIMES. WILL GIVE REPORT TO PM RN FOR SOM.
--- NOTE | 2016-08-07 19:50 | NUR ---
MS RN NOTE PT IN BED A/O X 4, NO SOB NOTED. C/O PAIN IN LT SIDE OF NECK 11/16 DILAUDID 2 MG IVP GIVEN. VSS. FRIEND AT BED SIDE TO PICK HIM UP. PT IS DISCHARGE TONIGHT. VANCO ATB HUNGED ORDERED. IV SITE INTACT AND PATENT NO S/S OF INFILTRATION NOTED. SUPRAPUBIC CATH INTACT AND PATENT DRAINING YELLOWISH COLOR URINE. SUPRAPUBIC SITE IS NOT LEAKING. REPOSITION HIM FOR SKIN MANAGEMENT. SIDE RAILS UP X 3 AND CALL LIGHT WITHIN REACH. WILL DISCHARGE HIM AFTER THE ATB FINISHED. PT ALREADY SIGNED THE EXIT CARE PER DAY SHIFT NURSE. ALL THE BELONGINGS ARE WITH THE PT.
[2016-08-07] MEDS ORDERED: SECONDARY IV SET 1 EA INFUS.SET MC ONE (19:51)
[2016-08-07 20:00] VITALS: BP 138/72
--- NOTE | 2016-08-07 20:22 | NUR ---
MS RN NOTE PAIN SUBSIDED 05/19. ATB INFUSING WELL. CONTINUE TO MONITOR HIM
--- NOTE | 2016-08-07 21:50 | NUR ---
MS RN NOTE PT C/O LEFT SIDE NECK PAIN 11/16 DILAUDID 2 MG IVP GIVEN. ALSO ATB MERREM 1 G STILL INFUSING, NO S/S OF INFILTRATION NOTED. PT'S FRIEND AT BED SIDE TO PICK HIM UP.
--- NOTE | 2016-08-07 22:20 | NUR ---
MS RN NOTE PAIN SUBSIDED 05/19. ALSO IV ATB FINISHED. DC THE MIDLINE AND PRESSURE APPLIED. NO BLEEDING NOTED. SITE SECURED WITH 2X2 GAUZE. ALSO INCONTINENCE CARE GIVEN.
--- NOTE | 2016-08-07 22:40 | NUR ---
MS RN NOTE PT LEFT THE ROOM ON HIS ELECTRIC CHAIR WITH FAMILY AND FRIENDS. ALL THE BELONGINGS GIVEN TO HIM. NO DISTRESS OR DISCOMFORT NOTED.
== END 2016-08-08 03:16 | disposition home health service (06) | DRG 853 ==
LOC: TELE1 20:11 → MEDSG1 07-25 11:00
PROVIDERS: ADMIT Nurse Practitioner Acute Care; ATTEND Nurse Practitioner Acute Care
PROC: 05H533Z Insertion of Infusion Device into Right Subclavian Vein, Percutaneous Approach (ICD-10-PCS; 2016-07-23)
PROC: 0KBP0ZZ Excision of Left Hip Muscle, Open Approach (ICD-10-PCS; principal; 2016-07-24)
PROC: 0KBP0ZZ Excision of Left Hip Muscle, Open Approach (ICD-10-PCS; 2016-07-31)
DX: A41.9 Sepsis, unspecified organism (principal); L89.324 Pressure ulcer of left buttock, stage 4; J18.9 Pneumonia, unspecified organism; L89.524 Pressure ulcer of left ankle, stage 4; E87.2 Acidosis; E44.0 Moderate protein-calorie malnutrition; I82.622 Acute embolism and thrombosis of deep veins of left upper extremity; G82.20 Paraplegia, unspecified; E87.1 Hypo-osmolality and hyponatremia; I82.619 Acute embolism and thrombosis of superficial veins of unspecified upper extremity; I82.A19 Acute embolism and thrombosis of unspecified axillary vein; N39.0 Urinary tract infection, site not specified; L97.311 Non-pressure chronic ulcer of right ankle limited to breakdown of skin; L97.319 Non-pressure chronic ulcer of right ankle with unspecified severity; I82.B19 Acute embolism and thrombosis of unspecified subclavian vein; J98.11 Atelectasis; T81.31XA Disruption of external operation (surgical) wound, not elsewhere classified, initial encounter; E11.622 Type 2 diabetes mellitus with other skin ulcer; E78.5 Hyperlipidemia, unspecified; E83.42 Hypomagnesemia; K21.9 Gastro-esophageal reflux disease without esophagitis; F17.210 Nicotine dependence, cigarettes, uncomplicated; I10 Essential (primary) hypertension; E66.8 Other obesity; D75.89 Other specified diseases of blood and blood-forming organs; D50.9 Iron deficiency anemia, unspecified; E66.9 Obesity, unspecified; Z68.31 Body mass index [BMI] 31.0-31.9, adult; E87.6 Hypokalemia; G89.4 Chronic pain syndrome; N31.9 Neuromuscular dysfunction of bladder, unspecified; Z79.01 Long term (current) use of anticoagulants; Z87.440 Personal history of urinary (tract) infections
CPT/HCPCS: 36415; 36569; 71010-TC; 80048-TC; 80053-TC; 80061-TC; 80202-TC; 81000-TC; 82248-TC; 82272-TC; 82728-TC; 82746; 83540-TC; 83605-TC; 83735-TC; 84100-TC; 84443-TC; 84484-TC; 85025-TC; 87040-TC; 87081-TC; 87086-TC; 87186-TC; 93307-TC; 93971-TC; 97001-TC; A4216; A6248; A6253; A6402; A6403; C1751; J0743; J0770; J1100; J1170; J1650; J2185; J2248; J2405; J2916; J3370; J3475; J7030; J7040; J7050; J7060; Z7610

== ENCOUNTER 2016-08-23 21:13 | Inpatient (IN) | payer MEDICARE ==
[~2016-08-23] VITALS: Ht 177.8 cm; Wt 109.8 kg
[2016-08-23 20:40] VITALS: BP 152/87
--- NOTE | 2016-08-23 20:40 | NUR ---
RN NOTES RECEIVED PATIENT IN WHEELCHAIR, WITH FRIEND AT BEDSIDE. INFORMED PATIENT HE MUST GO TO ER TO BE ADMITTED, SPOKE WITH DR. YANG, PER TREY PATIENT IS A DIRECT ADMIT AND TO BE PLACED IN ROOM 109. NOTED WITH MOD BLEEDING OF RIGHT FOOT. PER PATIENT, HOUSE IS BEING REMODELED, ONE OF THE TILES STICKING OUT SLICED HIS LEFT TOE, NOTED WITH CECI BANDAGE DRESSING ON BOTH LEGS. DENIES SOB. RESPIRATIONS EVEN AND UNLABORED, ON ROOM AIR. WITH SUPRAPUBIC CATHETER IN PLACE, DRAINING BY GRAVITY. ASSISTED PATIENT INTO BED. WILL INFORM ADMISSIONS PATIENTS ARRIVAL. PER PATIENT HE WENT TO ER FIRST BUT TREY INFORMED HIM TO GO DIRECTLY TO ROOM 109. PENDING ADMISSION PAPERS AND ADMITTING ORDERS. WILL CONTINUE TO MONITOR.
[~2016-08-23 21:13] MED LIST changes: +GABA300C PO; +RIVA10TA PO
[2016-08-23] MEDS ORDERED: HYDROMORPHONE 1 MG/1 ML DISP.SYRIN IM STA (21:34)
[2016-08-23 22:00] VITALS: BP 152/87
[2016-08-23] MEDS ORDERED: ACETAMINOPHEN 325 MG TABLET PO PRN (22:00)
[2016-08-23] MEDS ORDERED: DIAZEPAM 5 MG TABLET PO PRN (22:00)
[2016-08-23] MEDS ORDERED: VANCOMYCIN 1.5 GM in IV D5W 500 ML IV ONE (22:00)
[2016-08-23] MEDS ORDERED: ONDANSETRON HCL/PF 4 MG/2 ML VIAL IVP PRN (22:00)
[2016-08-23] MEDS ORDERED: MAGNESIUM HYDROXIDE 30 ML UDC PO PRN (22:00)
--- NOTE | 2016-08-23 22:00 | NUR ---
ÓSCAR RN NOTES ATTEMPTED TO PLACE IV LINE BY CHARGE NURSE, UNSUCCESSFUL, ATTEMPTED BY ICU NURSE, UNSUCCESSFUL, PER ICU NURSE, PICC LINE NURSE WILL BE AVAILABLE AROUND 2330, AWARE TO PLACE LINE ON PATIENT ONCE HE ARRIVES. PER TREY OK TO GIVE XARELTO, INFORMED HIM REGARDING RIGHT TIP OF TOE LACERATION. PER TREY HE WILL SEE PATIENT IN AM TO SUTURE. WILL CONTINUE TO MONITOR. DRESSING CHANGED AND PRESSURE APPLIED TO TOE. NOT BLEEDING AT THIS TIME. WILL CONTINUE TO MONITOR.
[2016-08-23 22:38] LABS: BASOPHILS % (AUTO) 0.4 % (0.0-2.0); EOSINOPHILS # (AUTO) 0.5 /CMM (0.0-0.7); EOSINOPHILS % (AUTO) 4.2 % (0.0-6.0); HEMATOCRIT 36 % (39-51); HEMOGLOBIN 11.6 g/dL (13.5-17.5); LYMPHOCYTES # (AUTO) 2.5 /CMM (0.8-4.8); LYMPHOCYTES % (AUTO) 20.7 % (20.0-44.0); MEAN CORPUSCULAR HEMOGLOBIN 25 PG (26.0-33.0); MEAN CORPUSCULAR HGB CONC 32 g/dl (31.0-36.0); MEAN CORPUSCULAR VOLUME 77 fL (80-96); MONOCYTES # (AUTO) 0.8 /CMM (0.1-1.30); NEUTROPHILS % (AUTO) 67.7 % (43.0-81.0); PLATELET COUNT (AUTO) 431 /CMM (150-450); RDW COEFFICIENT OF VARIATION 21.8 (11.5-15.0); RED BLOOD CELL COUNT(AUTO) 4.67 MIL/uL (4.5-6.0); WHITE BLOOD COUNT (AUTO) 11.8 K/uL (4.3-11.0)
[2016-08-23 22:45] LABS: CALCIUM, SERUM 8.8 mg/dL (8.5-10.1); CREATININE 1.1 mg/dL (0.6-1.3); POTASSIUM 3.5 mmol/L (3.5-5.1)
[2016-08-23] MEDS ORDERED: HYDROMORPHONE INJ 2 MG/ML DISP.SYRIN ONE (22:49)
[2016-08-23 22:50] LABS: ALBUMIN 3.2 g/dL (3.4-5.0); BILIRUBIN,TOTAL 0.2 mg/dL (0.2-1.0); MAGNESIUM 1.8 mg/dL (1.8-2.4); PHOSPHORUS 3.8 mg/dL (2.5-4.9)
[2016-08-23] MEDS ORDERED: GABAPENTIN 300 MG CAPSULE ONE (22:50)
[2016-08-23] MEDS ORDERED: LACTOBACILLUS RHAMNOSUS GG 1 EACH CAP.SPRINK ONE (22:51)
[2016-08-23] MEDS ORDERED: RIVAROXABAN 15 MG TABLET ONE (22:51)
[2016-08-23] MEDS: LACTOBACILLUS RHAMNOSUS GG 1 EACH CAP.SPRINK PO SCH (23:22)
[2016-08-23] MEDS: GABAPENTIN 300 MG CAPSULE PO SCH (23:22)
[2016-08-23] MEDS: RIVAROXABAN 10 MG TABLET PO SCH (23:35)
--- NOTE | 2016-08-23 23:50 | NUR ---
PICC LINE NURSE PICC LINE NURSE AT BEDSIDE, PLACED DOUGLAS MIDLINE, PATENT AND INTACT, NO BLOOD RETURN. WILL CONTINUE TO MONITOR.
[2016-08-24] VITALS: BP 129/75
[2016-08-24] MEDS ORDERED: VANCOMYCIN 1 GM VIAL ONE (00:01)
[2016-08-24] MEDS ORDERED: IV NS 0.9% 250 ML IV ONE (00:02)
[2016-08-24] MEDS ORDERED: SECONDARY IV SET 1 EA INFUS.SET MC ONE ×2 (00:02→00:38)
[2016-08-24] MEDS ORDERED: IV SET PRIMARY PUMP SET 1 EA INFUS.SET MC ONE (00:02)
[2016-08-24] MEDS ORDERED: IV NS 0.9% 1,000 ML ONE (00:05)
[2016-08-24] MEDS: IV NS 0.9% 1,000 ML IV PRN ×2 (00:14→19:35)
[2016-08-24] MEDS ORDERED: CEFEPIME 1 GM VIAL ONE (00:18)
[2016-08-24] MEDS: CEFEPIME 2 GM in IV D5W 100 ML IV SCH ×4 (01:23→16:42)
[2016-08-24 04:00] VITALS: BP 131/80
--- NOTE | 2016-08-24 05:06 | NUR ---
0500 cefepime not administered. too close from previous administration.
[2016-08-24 06:41] LABS: BASOPHILS % (AUTO) 0.4 % (0.0-2.0); EOSINOPHILS # (AUTO) 0.5 /CMM (0.0-0.7); EOSINOPHILS % (AUTO) 5.2 % (0.0-6.0); HEMATOCRIT 32 % (39-51); HEMOGLOBIN 10.4 g/dL (13.5-17.5); LYMPHOCYTES # (AUTO) 2.2 /CMM (0.8-4.8); LYMPHOCYTES % (AUTO) 23.4 % (20.0-44.0); MEAN CORPUSCULAR HEMOGLOBIN 25 PG (26.0-33.0); MEAN CORPUSCULAR HGB CONC 32 g/dl (31.0-36.0); MEAN CORPUSCULAR VOLUME 78 fL (80-96); MONOCYTES # (AUTO) 0.8 /CMM (0.1-1.30); MONOCYTES % (AUTO) 8.7 % (2.0-12.0); NEUTROPHILS % (AUTO) 62.3 % (43.0-81.0); PLATELET COUNT (AUTO) 340 /CMM (150-450); RDW COEFFICIENT OF VARIATION 21.9 (11.5-15.0); RED BLOOD CELL COUNT(AUTO) 4.11 MIL/uL (4.5-6.0); WHITE BLOOD COUNT (AUTO) 9.6 K/uL (4.3-11.0)
[2016-08-24 07:13] LABS: ALBUMIN 2.7 g/dL (3.4-5.0); BILIRUBIN,TOTAL 0.2 mg/dL (0.2-1.0); CALCIUM, SERUM 8.2 mg/dL (8.5-10.1); MAGNESIUM 1.8 mg/dL (1.8-2.4); PHOSPHORUS 4.1 mg/dL (2.5-4.9); POTASSIUM 3.2 mmol/L (3.5-5.1); TOTAL PROTEIN, SERUM 6.8 g/dL (6.4-8.2)
[2016-08-24 07:19] LABS: THYROID STIMULATING HORMONE 0.787 uIU/mL (0.358-3.74)
[2016-08-24] MEDS ORDERED: CEFEPIME 2 GM in IV D5W 100 ML IV SCH (07:23)
--- NOTE | 2016-08-24 07:24 | NUR ---
ÓSCAR RN CLOSING NOTES ALL NEEDS ANTICIPATED AND MET. PAIN MANAGED NEEDED. NO RESPIRATORY DISTRESS NOTED. ALL WOUND DRESSING DRY AND INTACT. WITH DOUGLAS MIDLINE, PATENT AND INTACT, IVF RUNNING. SUPRAPUBIC PATENT AND INTACT. DRAINING BY GRAVITY. SIDE RAILS UP AND LOCKED. BED KEPT AT LOWEST POSITION. CALL LIGHT KEPT WITHIN EASY REACH. WILL ENDORSE CONTINUITY OF CARE TO AM SHIFT.
[2016-08-24] MEDS ORDERED: FEE PK DOSING 1 MIN EA MC ONE (07:59)
[2016-08-24 08:00] VITALS: BP 131/76
[2016-08-24] MEDS ORDERED: VANCOMYCIN 1.25 GM in IV D5W 500 ML IV ONE (08:00)
[2016-08-24] MEDS ORDERED: VANCOMYCIN 1.5 GM in IV D5W 500 ML IV ONE (08:00)
--- NOTE | 2016-08-24 08:00 | NUR ---
ICU/RN INITIAL NOTES,AM RECEIVED REPORT FROM NIGHT NURSE. PT ALERT, AWAKE, FOLLOWS COMMANDS. ON ROOM AIR, NO DISTRESS NOTED. PT SINUS TACHY 110 ON TELE. BARIATRIC BED ORDERED FOR SKIN PROTECTION, MULTIPLE WOUNDS NOTED, WOUND CONSULT ORDERED. MIDLINE PRESENT, NO S/S OF INFECTION NOTED, IV FLUIDS INFUSING ORDERED. ALL NEEDS WILL BE MET, SAFETY MEASURES TAKEN, BED IN LOW POSITION, SIDE RAILS UP, CALL LIGHT WITHIN REACH. WILL CONTINUE CARE.
[2016-08-24] MEDS: HYDROMORPHONE INJ 2 MG/ML DISP.SYRIN IV PRN ×3 (08:26→20:59)
[2016-08-24] MEDS: GABAPENTIN 300 MG CAPSULE PO SCH ×3 (08:26→16:31)
[2016-08-24] MEDS: LACTOBACILLUS RHAMNOSUS GG 1 EACH CAP.SPRINK PO SCH ×2 (08:27→16:31)
[2016-08-24 08:31] LABS: PROTHROMBIN TIME 10.7 SECS (9.5-12.7)
[2016-08-24] MEDS: RIVAROXABAN 10 MG TABLET PO SCH (08:37)
[2016-08-24] MEDS: LIDOCAINE 1% INJ 50 ML MDV IJ ONE ×2 (10:00→12:03)
[2016-08-24] MEDS ORDERED: POTASSIUM CHLORIDE 20 MEQ POWDER PACKET NG SCH (11:00)
[2016-08-24 12:00] VITALS: BP 129/84
--- NOTE | 2016-08-24 14:30 | NUR ---
ÓSCAR/RN: GREGORIO YANG AT BEDSIDE TO SUTURE RIGHT TOE LACERATION. IN ROOM WELL. AFTER ASSESSMENT OF THE WOUND THEY DECIDED SUTURES NOT NEEDED. WOUND ORDERS RECEIVED FOR XEROFORM AND KERLEX WRAP. WILL CONTINUE WOUND CARE AND WILL KEEP BOTH EXTREMITIES ELEVATED.
[2016-08-24] MEDS ORDERED: TEST200V3 IM (15:45)
[2016-08-24 16:00] VITALS: BP 128/73
[2016-08-24] MEDS ORDERED: RIVAROXABAN 10 MG TABLET PO SCH ×2 (17:00)
[2016-08-24] MEDS: VANCOMYCIN 1 GM in IV D5W 250 ML IV SCH (18:26)
--- NOTE | 2016-08-24 19:27 | NUR ---
ICU/RN ENDING NOTES,AM REPORT ENDORSED TO NIGHT NURSE FOR CONTINUATION OF CARE, PT ON ROOM AIR, NO ACUTE DISTRESS NOTED AT THIS TIME. PT SINUS TACH ON TELE. PT PUT ON BARIATRIC BED, PT SEEN AND ASSESSED BY AND ORDERS RECEIVED. PT BATHED, TURNED AND REPOSITIONED. BED IN LOW POSITION, SIDE RAILS UP, CALL LIGHT WITHIN REACH. WILL CONTINUE CARE
[2016-08-24 20:00] VITALS: BP 124/76
[2016-08-24 23:42] LABS: APPEARANCE,URINE SL CLOUDY (CLEAR); BILIRUBIN,URINE NEGATIVE (NEGATIVE); BLOOD, URINE 3+ Ery/uL (NEGATIVE); COLOR,URINE YELLOW (YELLOW); KETONES,URINE NEGATIVE (NEGATIVE); LEUKOCYTE ESTERASE ,URINE 3+ (NEGATIVE); NITRITE, URINE POSITIVE (NEGATIVE); PROTEIN,URINE 1+ mg/dl (NEGATIVE); UGLUCOSE NEGATIVE (NEGATIVE); UROBILINOGEN,URINE 0.2 EU/dL (0.2)
[2016-08-24 23:47] LABS: SQUAMOUS EPITHELIAL CELL,UR Few /HPF (None Seen)
[2016-08-24 23:48] LABS: BACTERIA,URINE Moderate /HPF (None Seen); WBC,URINE 81-100 /HPF (0-3)
[2016-08-25] VITALS: BP 145/92
[2016-08-25] MEDS: CEFEPIME 2 GM in IV D5W 100 ML IV SCH ×3 (01:16→17:37)
[2016-08-25] MEDS: VANCOMYCIN 1 GM in IV D5W 250 ML IV SCH ×2 (02:12→10:46)
[2016-08-25] MEDS: HYDROMORPHONE INJ 2 MG/ML DISP.SYRIN IV PRN ×5 (03:25→19:45)
[2016-08-25 04:00] VITALS: BP 125/74
[2016-08-25 06:50] LABS: CALCIUM, SERUM 8.1 mg/dL (8.5-10.1); POTASSIUM 3.5 mmol/L (3.5-5.1)
--- NOTE | 2016-08-25 07:13 | NUR ---
WOUND CARE CONSULT WOUND CARE WILL DEFER TO SURGICAL TEAM AT THIS TIME WITH WOUND CARE ASSIST REQUESTED. ORDERS FOR TREATMENT IN COMPUTER, PATIENT ON BERYL MAX 2 BED WITH ETS AIR AND ALL SKIN MANAGEMENT AND PREVENTION MEASURES NOTED TO BE IN PLACE AT THIS TIME. WILL SEE PRN.
[2016-08-25 08:00] VITALS: BP_SYST 110; BP_SYST 140; BP_DIAS 71; BP_DIAS 83
[2016-08-25] MEDS: GABAPENTIN 300 MG CAPSULE PO SCH ×3 (08:20→17:40)
[2016-08-25] MEDS: HYDROGEL DRESSING 90 GM TUBE TP SCH (08:20)
[2016-08-25] MEDS: LACTOBACILLUS RHAMNOSUS GG 1 EACH CAP.SPRINK PO SCH ×2 (08:20→17:40)
[2016-08-25] MEDS: NYSTATIN TOP POWDER 15 GM BOTTLE TP SCH ×2 (08:20→17:46)
[2016-08-25] MEDS: Z GUARD REMEDY 4 OZ OINT TP SCH (09:00)
[2016-08-25 12:00] VITALS: BP 107/69
[2016-08-25 16:17] VITALS: BP 132/87
[2016-08-25] MEDS: RIVAROXABAN 10 MG TABLET PO SCH (17:40)
[2016-08-25] MEDS: VANCOMYCIN 0.75 GM in IV D5W 250 ML IV SCH (17:47)
[2016-08-25] MEDS: IV NS 0.9% 1,000 ML IV PRN (17:49)
--- NOTE | 2016-08-25 18:00 | NUR ---
PT ASSISTED WITH FULL BED BATH, SKIN CARE WOUND CARE.
--- NOTE | 2016-08-25 19:36 | NUR ---
ms rn initial notes: received report from herrera ortiz. pt in bed, sleeping, arouses to tactile stimuli, appears calm and comfortable, no facial grimace notes, respiration even and unlabored. john midline in placed patent and flushing well, infusing with ns at 75ml/hr. pt on barrimax bed, ble offloaded. safety precautions for fall initiated call light in reach will continue to monitor
[2016-08-25 21:00] VITALS: BP 125/78
--- NOTE | 2016-08-25 22:17 | NUR ---
MS RN NOTES: PT STILL SLEEPING, APPEARS COMFORTABLE, NO FACIAL GRIMACE NOTED AT THIS TIME, NOT IN ANY APPARENT DISTRESS, WILL CONTINUE TO MONITOR
[2016-08-26] MEDS: CEFEPIME 2 GM in IV D5W 100 ML IV SCH ×3 (00:24→17:39)
--- NOTE | 2016-08-26 00:34 | NUR ---
ms rn notes: pt still sleeping, snoring arouses to tactile stimuli, no sob noted will continue to monitor
[2016-08-26] MEDS: HYDROMORPHONE INJ 2 MG/ML DISP.SYRIN IV PRN ×6 (01:17→20:29)
[2016-08-26] MEDS: VANCOMYCIN 0.75 GM in IV D5W 250 ML IV SCH ×3 (01:17→18:00)
--- NOTE | 2016-08-26 01:17 | NUR ---
ms rn notes: pt c/o pain on his neck area 12/17 requesting for dilaudid, prn dilaudid 2mg ivp administered to the pt at this time, educate pt regarding medication side effect, will continue to monitor and reassess
--- NOTE | 2016-08-26 04:09 | NUR ---
MS RN NOTES: PT C/O 12/17 NECK PAIN REQUESTING FOR DILAUDID, PRN DILAUDID 2MG IVP ADMINISTERED TO THE PT AT THIS TIME, WILL CONTINUE TO MONITOR AND REASSESS
[2016-08-26 05:00] VITALS: BP 126/92
--- NOTE | 2016-08-26 06:50 | NUR ---
MS RN CLOSING NOTES: PT IN BED, AWAKE, DENIES ANY PAIN OR DISCOMFORT AT THIS TIME, REMAINS ON ROOM AIR, NO SOB NOTED. VS REMAINS STABLE, NEEDS ATTENDED, BLE KEPT OFFLOADED. BED BRAKES REMAINS ENGAGED, CALL LIGHT IN REACH, SUCTION SET UP SECURED, WILL ENDORSE TO DAY RN FOR SOM.
[2016-08-26 06:52] LABS: CALCIUM, SERUM 8.3 mg/dL (8.5-10.1); CREATININE 0.8 mg/dL (0.6-1.3); POTASSIUM 3.2 mmol/L (3.5-5.1)
[2016-08-26 08:00] VITALS: BP 130/80
[2016-08-26] MEDS: LACTOBACILLUS RHAMNOSUS GG 1 EACH CAP.SPRINK PO SCH ×2 (08:08→17:38)
[2016-08-26] MEDS: GABAPENTIN 300 MG CAPSULE PO SCH ×3 (08:08→17:38)
[2016-08-26] MEDS: NYSTATIN TOP POWDER 15 GM BOTTLE TP SCH ×2 (09:00→17:00)
[2016-08-26] MEDS: HYDROGEL DRESSING 90 GM TUBE TP SCH (09:00)
[2016-08-26] MEDS: Z GUARD REMEDY 4 OZ OINT TP SCH (09:00)
[2016-08-26] MEDS: POTASSIUM CL. PREMIX PERIPHER. 50 ML IV SCH ×4 (11:34→16:18)
[2016-08-26 13:00] VITALS: BP 148/87
[2016-08-26 16:00] VITALS: BP 148/87
[2016-08-26] MEDS: MUPIROCIN OINT 2% 22 GM TUBE SCH (17:00)
[2016-08-26] MEDS: RIVAROXABAN 10 MG TABLET PO SCH (19:27)
--- NOTE | 2016-08-26 19:30 | NUR ---
MS RN OPENING NOTES: PATIENT IN BED, AOX4, ON ROOM AIR, BREATHING EVEN AND UNLABORED. APPEARS CALM AND IN NO DISTRESS, WITH FRIENDS AT BEDSIDE. DOUGLAS MIDLINE INTACT AND INFUSING WELL WITH IV ATB VANCOMYCIN AT THIS TIME. WITH SUPRAPUBIC CATHETER INTACT, WITH CLOUDY YELLOW URINE, REPORTED TO BE LEAKING BY PATIENT FROM THE COLLECTION BAG. NOTED ROXY FEET WITH SLIGHTLY SOILED DRESSINGS. PROVIDED FOR COMFORT AND SAFETY. WILL CONT TO MONITOR.
[2016-08-26 20:00] VITALS: BP 130/76
[2016-08-26] MEDS: IV NS 0.9% 1,000 ML IV PRN (20:30)
--- NOTE | 2016-08-26 20:30 | NUR ---
RN NOTES: PT COMPLAINED OF 9/10 PAIN OVER HIS LEFT NECK AND TO SHOULDER. ADMINISTERED DILAUDID 2 MG IV PRN. WILL CONT TO MONITOR.
[2016-08-26 21:00] VITALS: BP 130/76
--- NOTE | 2016-08-26 21:00 | NUR ---
RN NOTES: URINE COLLECTION BAG CHANGED.
[2016-08-27] VITALS (7 sets, daily range): BP systolic 121–134; BP diastolic 61–80
[2016-08-27] MEDS: HYDROMORPHONE INJ 2 MG/ML DISP.SYRIN IV PRN ×5 (00:28→20:19)
[2016-08-27] MEDS: CEFEPIME 2 GM in IV D5W 100 ML IV SCH ×3 (00:29→15:43)
[2016-08-27] MEDS: VANCOMYCIN 0.75 GM in IV D5W 250 ML IV SCH ×3 (01:55→18:00)
[2016-08-27 06:52] LABS: CALCIUM, SERUM 8.4 mg/dL (8.5-10.1); CREATININE 0.8 mg/dL (0.6-1.3); POTASSIUM 3.6 mmol/L (3.5-5.1)
[2016-08-27] MEDS: HYDROGEL DRESSING 90 GM TUBE TP SCH (09:20)
[2016-08-27] MEDS: NYSTATIN TOP POWDER 15 GM BOTTLE TP SCH ×2 (09:20→17:01)
[2016-08-27] MEDS: MUPIROCIN OINT 2% 22 GM TUBE SCH ×2 (09:20→17:01)
[2016-08-27] MEDS: GABAPENTIN 300 MG CAPSULE PO SCH ×3 (09:20→15:43)
[2016-08-27] MEDS: LACTOBACILLUS RHAMNOSUS GG 1 EACH CAP.SPRINK PO SCH ×2 (09:20→15:44)
[2016-08-27] MEDS: Z GUARD REMEDY 4 OZ OINT TP SCH (09:20)
[2016-08-27 15:03] LABS: *TESTOSTERONE, FREE (DIRECT) 30.1 pg/mL (6.8-21.5)
[2016-08-27] MEDS: RIVAROXABAN 10 MG TABLET PO SCH (15:44)
--- NOTE | 2016-08-27 19:17 | NUR ---
RN CLOSING NOTE ALL MD ORDERS CARRIED OUT. PT KEPT CLEAN AND DRY. SAFETY PRECAUTIONS IN PLACE AT ALL TIMES. ISOLATION PRECAUTIONS OBSERVED AT ALL TIMES. REPORT GIVEN TO PM RN FOR SOM.
[2016-08-27] MEDS ORDERED: TRAM50TA2 PO (20:22)
[2016-08-27] MEDS ORDERED: PANT40TA4 PO (20:22)
[2016-08-27] MEDS ORDERED: LACT1CAP72 PO (20:22)
[2016-08-27] MEDS ORDERED: HYDR8TAB2 PO (20:22)
[2016-08-27] MEDS ORDERED: RIVA10TA PO (20:22)
[2016-08-27] MEDS ORDERED: ZOLP10TA2 PO (20:22)
[2016-08-27] MEDS ORDERED: DIAZ10TA4 PO (20:22)
[2016-08-27] MEDS ORDERED: GABA300C PO (20:22)
--- NOTE | 2016-08-27 22:18 | NUR ---
RN NOTES: PATIENT REFUSED DRESSING CHANGE ON THE WOUNDS WELL TAKING PICTURES OF THE WOUNDS .
--- NOTE | 2016-08-27 22:22 | NUR ---
RN NOTES: PATIENT IS DISCHARGED HOME IN A STABLE CONDITION ESCORTING BY HIS BROTHER JASMIN AND HIS FRIEND CASSANDRA RHOADES. PATIENT IS IN A STABLE CONDITION NO COMPLAINS OF PAIN OR DISTRESS NOTED.
--- NOTE | 2016-08-27 22:52 | NUR ---
RN NOTES: PATIENT HAS RIGHT UPPER MIDLINE AND SUPRAPUBIC CATHETER IN PLACE UPON DISCHARGE.
== END 2016-08-27 22:52 | disposition home or self-care (01) | DRG 871 ==
LOC: MEDSG1 21:13 → TELE-TD 23:07 → MEDSG1 08-25 08:44
PROVIDERS: ADMIT Nurse Practitioner Acute Care; ATTEND Nurse Practitioner Acute Care
DX: A41.9 Sepsis, unspecified organism (principal); L89.324 Pressure ulcer of left buttock, stage 4; L03.116 Cellulitis of left lower limb; G82.20 Paraplegia, unspecified; N39.0 Urinary tract infection, site not specified; I82.B22 Chronic embolism and thrombosis of left subclavian vein; I82.C22 Chronic embolism and thrombosis of left internal jugular vein; D63.8 Anemia in other chronic diseases classified elsewhere; E11.9 Type 2 diabetes mellitus without complications; E78.5 Hyperlipidemia, unspecified; E86.0 Dehydration; F17.210 Nicotine dependence, cigarettes, uncomplicated; K21.9 Gastro-esophageal reflux disease without esophagitis; Z87.440 Personal history of urinary (tract) infections; Z88.0 Allergy status to penicillin; I10 Essential (primary) hypertension; L98.8 Other specified disorders of the skin and subcutaneous tissue; N31.9 Neuromuscular dysfunction of bladder, unspecified; Z22.322 Carrier or suspected carrier of Methicillin resistant Staphylococcus aureus; S81.802A Unspecified open wound, left lower leg, initial encounter; S81.801A Unspecified open wound, right lower leg, initial encounter; X58.XXXA Exposure to other specified factors, initial encounter; Y93.9 Activity, unspecified; Y92.009 Unspecified place in unspecified non-institutional (private) residence as the place of occurrence of the external cause; Y99.9 Unspecified external cause status; M62.838 Other muscle spasm; B96.5 Pseudomonas (aeruginosa) (mallei) (pseudomallei) as the cause of diseases classified elsewhere; S31.20XA Unspecified open wound of penis, initial encounter; S91.101A Unspecified open wound of right great toe without damage to nail, initial encounter; Z86.14 Personal history of Methicillin resistant Staphylococcus aureus infection; Z86.718 Personal history of other venous thrombosis and embolism
CPT/HCPCS: 36415; 36569; 80048-TC; 80053-TC; 80202-TC; 81000-TC; 82306; 83735-TC; 84100-TC; 84402; 84403; 84443-TC; 85025-TC; 85610-TC; 85652-TC; 87040-TC; 87070-TC; 87081-TC; 87086-TC; 87186-TC; 93971-TC; A6248; A6253; A6403; J0692; J1170; J2405; J3370; J3480; J3490; J7030; J7050; J7060; Z7610

== ENCOUNTER 2017-05-25 16:25 | Inpatient (IN) | payer MEDICARE ==
[~2017-05-25] VITALS: Ht 190.5 cm; Wt 113.4 kg
[2017-05-26] MEDS ORDERED: HYDROMORPHONE INJ 2 MG/ML DISP.SYRIN IV PRN (10:00)
[2017-05-26] MEDS ORDERED: MAG HYDROX/AL HYDROX/SIMETH 30 ML UDC PO PRN (10:00)
[2017-05-26] MEDS ORDERED: Z GUARD REMEDY 2 OZ OINT TP PRN (10:00)
[2017-05-26] MEDS ORDERED: ACETAMINOPHEN 325 MG TABLET PO PRN (10:00)
[2017-05-26] MEDS ORDERED: BISACODYL SUPP (10 MG) 10 MG/SUPP.RECT SUPP.RECT RC PRN (10:00)
[2017-05-26] MEDS ORDERED: ONDANSETRON HCL/PF 4 MG/2 ML VIAL IVP PRN (10:00)
--- NOTE | 2017-05-26 10:15 | NUR ---
Patient newly admitted with dx of right foot cellulitis.no s/s of distress .breathing even and unlabored.All orders noted and carried out.bed in low and locked position.safety measures in place.will continue to monitor for changes.Neha ibrahim made aware.
[2017-05-26 10:46] LABS: EOSINOPHILS # (AUTO) 0.3 /CMM (0.0-0.7); EOSINOPHILS % (AUTO) 2.4 % (0.0-6.0); HEMATOCRIT 34 % (39-51); HEMOGLOBIN 11.3 g/dL (13.5-17.5); LYMPHOCYTES # (AUTO) 1.5 /CMM (0.8-4.8); LYMPHOCYTES % (AUTO) 13.3 % (20.0-44.0); MEAN CORPUSCULAR HEMOGLOBIN 28 PG (26.0-33.0); MEAN CORPUSCULAR HGB CONC 33 g/dl (31.0-36.0); MEAN CORPUSCULAR VOLUME 83 fL (80-96); MONOCYTES # (AUTO) 0.4 /CMM (0.1-1.30); MONOCYTES % (AUTO) 3.5 % (2.0-12.0); NEUTROPHILS # (AUTO) 9.4 /CMM (1.8-8.9); NEUTROPHILS % (AUTO) 80.8 % (43.0-81.0); PLATELET COUNT (AUTO) 487 /CMM (150-450); RED BLOOD CELL COUNT(AUTO) 4.09 MIL/uL (4.5-6.0); WHITE BLOOD COUNT (AUTO) 11.6 K/uL (4.3-11.0)
[2017-05-26 11:03] LABS: CREATININE 0.9 mg/dL (0.6-1.3); MAGNESIUM 1.9 mg/dL (1.8-2.4); POTASSIUM 3.5 mmol/L (3.5-5.1)
[2017-05-26] MEDS: MEROPENEM 1 G in IV NS 0.9% 100 ML IV SCH ×2 (13:43→21:35)
[2017-05-26] MEDS ORDERED: VANCOMYCIN 1.25 GM in IV NS 0.9% 500 ML IV ONE (14:00)
[2017-05-26] MEDS: HYDROMORPHONE INJ 2 MG/ML DISP.SYRIN IV PRN ×2 (14:01→21:39)
[2017-05-26] MEDS ORDERED: FEE PK DOSING 1 MIN EA MC ONE (14:07)
--- NOTE | 2017-05-26 19:45 | NUR ---
INTERMEDIATE TEACHER NOTES RECEIVED SITTING ON BED WATCHING TV PROGRAM.RIGHT FOOT REMAINS SWOOLLEN AND REDDISH.C/O PAIN /10 BUT TOLERABLE.WITH RIGHT UPPER ARM PICC LINE FOR MEDS.CALL LIGHT IN REACH,NEEDS ANTICIPATED.
[2017-05-26 20:00] VITALS: BP 124/73
--- NOTE | 2017-05-26 21:39 | NUR ---
MS RN NOTES PAIN MANAGEMENT C/O RIGHT FOOT PAIN 8/10 ON PAIN SCALE.DILAUDID 2MG IV GIVEN ORDERED.WILL MONITOR FOR RELIEF.VISITOR AT BEDSIDE.KARLEE DAWN
[2017-05-26 22:00] VITALS: BP 126/73
[2017-05-26] MEDS: VANCOMYCIN 1 GM in IV D5W 250 ML IV SCH (22:13)
--- NOTE | 2017-05-27 02:04 | NUR ---
MS RN NOTES SPOKE TO CASSANDRA HUIZAR,WITH ORDERS FOR AMBIEN 5MG PO X ONE DOSE
[2017-05-27] MEDS ORDERED: ZOLPIDEM TARTRATE 5 MG TABLET PO ONE (02:30)
--- NOTE | 2017-05-27 03:09 | NUR ---
MS RN NOTES C/O HEADACHE,TYLENOL 650MG PO GIVEN PER PATIENT REQUEST.
[2017-05-27] MEDS: MEROPENEM 1 G in IV NS 0.9% 100 ML IV SCH ×3 (04:49→21:39)
[2017-05-27] MEDS: VANCOMYCIN 1 GM in IV D5W 250 ML IV SCH ×3 (05:45→22:50)
[2017-05-27] MEDS: HYDROMORPHONE INJ 2 MG/ML DISP.SYRIN IV PRN (06:21)
--- NOTE | 2017-05-27 06:21 | NUR ---
MS RN NOTES C/O HEADACHE AND RIGHT FOOT PAIN 9/10 ON PAIN SCALE.DILAUDID 2MG IV GIVEN ORDERED
--- NOTE | 2017-05-27 06:33 | NUR ---
MS RN NOTES SLEPT WELL WITHOUT PHARMACOLOGICAL INTERVENTION.IV ABX TOLERATED WELL.AWAITING WOUND CARE CONSULT.IN NO ACUTE DISTRESS.WILL ENDORSE TO DAY NURSE FOR SOM.
[2017-05-27 08:00] VITALS: BP 118/69
--- NOTE | 2017-05-27 08:00 | NUR ---
rn notes received patient in the bed resting , no acute respiratory distress, v/s table, call light within to reach, refused pain at this time. continued monitoring.
[2017-05-27 09:36] LABS: ALBUMIN 2.3 g/dL (3.4-5.0); BILIRUBIN,TOTAL 0.2 mg/dL (0.2-1.0); CALCIUM, SERUM 8.7 mg/dL (8.5-10.1); CREATININE 0.9 mg/dL (0.6-1.3); MAGNESIUM 1.9 mg/dL (1.8-2.4); PHOSPHORUS 3.5 mg/dL (2.5-4.9); POTASSIUM 3.8 mmol/L (3.5-5.1); TOTAL PROTEIN, SERUM 8.3 g/dL (6.4-8.2)
[2017-05-27 09:38] LABS: BASOPHILS # (AUTO) 0.1 /CMM (0.0-0.2); BASOPHILS % (AUTO) 0.8 % (0.0-2.0); EOSINOPHILS # (AUTO) 0.4 /CMM (0.0-0.7); EOSINOPHILS % (AUTO) 4.4 % (0.0-6.0); HEMATOCRIT 34 % (39-51); HEMOGLOBIN 11.3 g/dL (13.5-17.5); LYMPHOCYTES # (AUTO) 1.6 /CMM (0.8-4.8); LYMPHOCYTES % (AUTO) 18.6 % (20.0-44.0); MEAN CORPUSCULAR HEMOGLOBIN 28 PG (26.0-33.0); MEAN CORPUSCULAR HGB CONC 33 g/dl (31.0-36.0); MEAN CORPUSCULAR VOLUME 84 fL (80-96); MONOCYTES # (AUTO) 0.5 /CMM (0.1-1.30); MONOCYTES % (AUTO) 5.9 % (2.0-12.0); NEUTROPHILS # (AUTO) 5.9 /CMM (1.8-8.9); NEUTROPHILS % (AUTO) 70.3 % (43.0-81.0); PLATELET COUNT (AUTO) 492 /CMM (150-450); RDW COEFFICIENT OF VARIATION 15.8 (11.5-15.0); WHITE BLOOD COUNT (AUTO) 8.4 K/uL (4.3-11.0)
--- NOTE | 2017-05-27 12:00 | NUR ---
rn notes patient in the bed assist turn and reposition q 2 hr, f/c drain light yellow output, scheduled medication administered, encouraged to increase fluid intake, Pick line on right upper arm, intact. call light within to reach continued monitoring.
[2017-05-27] MEDS: HYDROMORPHONE HCL 2 MG TABLET PO PRN ×2 (14:01→22:00)
--- NOTE | 2017-05-27 14:01 | NUR ---
RN NOTES ADMINISTERED DILAUDID 8 MG PO PRN FOR BILATERAL LOWER LEGS PAIN /10 PER PATIENT REQUEST. V/S TAKEN BP 118/69, P-84, CALL LIGHT WITHIN TO REACH, ENCOURAGED TO INCREASE FLUID INTAKE, CONTINUED MONITORING.
--- NOTE | 2017-05-27 15:00 | NUR ---
RN NOTES PAIN MEDICATION WERE ADMINISTERED EFFECTIVE, FAMILY NEXT TO THE BED, KEEP ELEVATED LOWER EXTREMITIES. PATIENT TURN AND REPOSTION SELF IN THE BED. CONTINUED MONITORING.
[2017-05-27 16:00] VITALS: BP 140/63
--- NOTE | 2017-05-27 18:30 | NUR ---
RN NOTES PATIENT RESTING IN THE BED, NO ACUTE/ NO RESPIRATORY DISTRESS, V/S STABLE, NEEDS ATTENDED AND ANTICIPATED, ENDORSED ONCOMING NURSE FOR SOM.
[2017-05-27 20:00] VITALS: BP 126/69
[2017-05-27] MEDS ORDERED: LACTOBACILLUS RHAMNOSUS GG 1 EACH CAP.SPRINK PO ONE (21:30)
--- NOTE | 2017-05-27 22:00 | NUR ---
ms/rn notes patient reported severe pain in left foot, 11/16, with as needed dilaudid order for pain, will continue to monitor.
[2017-05-27] MEDS: DIAZEPAM 10 MG TABLET PO PRN (22:50)
[2017-05-28] MEDS: HYDROMORPHONE HCL 2 MG TABLET PO PRN ×5 (02:46→22:25)
--- NOTE | 2017-05-28 02:52 | NUR ---
ms/rn notes patient reported 8/10 pain in head with as needed medication monitoring
[2017-05-28] MEDS: MEROPENEM 1 G in IV NS 0.9% 100 ML IV SCH ×3 (05:03→21:19)
[2017-05-28] MEDS: VANCOMYCIN 1 GM in IV D5W 250 ML IV SCH ×3 (05:49→22:16)
--- NOTE | 2017-05-28 06:49 | NUR ---
ms/rn closing notes patient able to sleep during the night, with pain monitoring and effective pain management, requested for valium at bed time, respirations even and unlabored, skin warm to touch, will endorse to am rn for logan. bed in lock position. call lights within reached.
--- NOTE | 2017-05-28 07:30 | NUR ---
ms rn initial notes Received patient in bed, asleep, head of bed elevated, no SOB or distress noted. On room air and tolerated well. IV intact and patent HL only. Alert and oriented x 4, verbally responsive and able to make needs known. Kept patient clean and comfortable in bed, call light with in patient reach, will continue to monitor accordingly.
[2017-05-28 07:35] LABS: CALCIUM, SERUM 8.8 mg/dL (8.5-10.1); CREATININE 0.8 mg/dL (0.6-1.3); POTASSIUM 3.9 mmol/L (3.5-5.1)
[2017-05-28 08:00] VITALS: BP_SYST 160; BP_DIAS 35; BP_DIAS 85
[2017-05-28] MEDS: LACTOBACILLUS RHAMNOSUS GG 1 EACH CAP.SPRINK PO SCH ×2 (08:48→17:37)
--- NOTE | 2017-05-28 11:59 | NUR ---
WOUND CARE CONSULT: PT PRESENTS WITH MULTIPLE WOUNDS, PRESENT ON ADMISSION INCLUDING MULTIPLE WOUNDS TO LOWER EXTREMITIES AND LEFT BUTTOCK STAGE 4 ULCER, RT BUTTOCK STAGE 2 ULCER. PT IS ON YOAN ISOFLEX LOW AIRLOSS BED. ALL SKIN PROTECTION MEASURES IN PLACE AND DISCUSSED WITH NURSING STAFF. RECOMMEND SURGICAL CONSULT. MD IN AGREEMENT WITH PLAN OF CARE. Addendum: 05/28/17 at 1201 by NEO CORREA WNDNU Amended: Links added.
--- NOTE | 2017-05-28 12:07 | NUR ---
ms rn notes Addendum notes on the 8am skin assessment. During skin assessment noted multiple wounds on the patient and Skin intervention documented. Will continue to monitor accordingly.
[2017-05-28] MEDS ORDERED: HYDROGEL DRESSING 90 GM TUBE TP PRN (12:30)
[2017-05-28 16:00] VITALS: BP 123/69
[2017-05-28] MEDS: HYDROGEL DRESSING 90 GM TUBE TP SCH (17:39)
--- NOTE | 2017-05-28 19:09 | NUR ---
ms rn closing notes All needs provided, attended, and anticipated. Kept patient clean and comfortable in bed, call light with in patient reach, endorsed to next shift RN to continue care.
--- NOTE | 2017-05-28 19:40 | NUR ---
RN OPENING NOTES PATIENT IS IN BED, ALERT AND ORIENTED X4. VS STABLE. NO C/O PAIN OR DISCOMFORT AT THIS TIME. RESPIRATIONS EVEN AND UNLABORED. NO SOB NOTED. IV ACCESS ON RIGHT UA MIDLINE PATENT AND INTACT, NO REDNESS OR INFILTRATION NOTED. BED IN LOW AND LOCKED POSITION. CALL LIGHT WITHIN EASY REACH. WILL CONTINUE TO MONITOR.
[2017-05-28 20:00] VITALS: BP 135/77
[2017-05-29] MEDS: HYDROMORPHONE HCL 2 MG TABLET PO PRN ×4 (04:26→22:53)
[2017-05-29] MEDS: MEROPENEM 1 G in IV NS 0.9% 100 ML IV SCH ×3 (04:31→22:07)
[2017-05-29] MEDS: DIAZEPAM 10 MG TABLET PO PRN ×2 (05:23→23:56)
[2017-05-29] MEDS: VANCOMYCIN 1 GM in IV D5W 250 ML IV SCH ×3 (05:23→22:48)
[2017-05-29 06:43] LABS: CALCIUM, SERUM 8.8 mg/dL (8.5-10.1); CREATININE 0.8 mg/dL (0.6-1.3)
--- NOTE | 2017-05-29 07:10 | NUR ---
RN NOTES: PATIENT RESTING IN BED. NONLABORED BREATHING NOTED ON ROOM AIR. AOX4, DENIES PAIN AT THE MOMENT. PICCLINE ON RIGHT EXTREMITY PATENT AND INTACT. BED IN LOWEST LOCKED POSITION. CALL LIGHT WITHIN REACH. WILL CONTINUE TO MONITOR
--- NOTE | 2017-05-29 07:30 | NUR ---
RN CLOSING NOTES PATIENT IS SLEEPING IN BED, EASY TO AROUSE, ALERT AND ORIENTED X4. VS STABLE. NO C/O PAIN OR DISCOMFORT AT THIS TIME. RESPIRATIONS EVEN AND UNLABORED. NO SOB NOTED. IV ACCESS ON RIGHT UA MIDLINE PATENT AND INTACT, NO REDNESS OR INFILTRATION NOTED. ALL NEEDS ARE MET AND MEDICATIONS GIVEN PER MD ARAGON. BED IN LOW AND LOCKED POSITION. CALL LIGHT WITHIN EASY REACH. WILL ENDORSE TO RN DAY SHIFT FOR SOM.
[2017-05-29 08:00] VITALS: BP 152/82
[2017-05-29] MEDS: LACTOBACILLUS RHAMNOSUS GG 1 EACH CAP.SPRINK PO SCH ×2 (08:06→16:54)
[2017-05-29] MEDS: HYDROGEL DRESSING 90 GM TUBE TP SCH (10:53)
--- NOTE | 2017-05-29 12:40 | NUR ---
RN NOTES EAR DROPS ADMINISTERED BY DR GREGORIO YANG
[2017-05-29] MEDS ORDERED: ANTIPYRINE OT PRN (13:00)
[2017-05-29] MEDS ORDERED: NEO/POLY B SULF/HC OTIC SOLN 10 ML BOTTLE OT SCH (13:00)
[2017-05-29] MEDS: NEO/POLY B SULF/HC OTIC SOLN 10 ML BOTTLE OT SCH ×2 (13:00→21:00)
[2017-05-29] MEDS ORDERED: OFLOXACIN OTIC SOLN 5 ML BOTTLE RIGHT EAR SCH (13:00)
[2017-05-29] MEDS ORDERED: GLYCERIN OT PRN (13:00)
[2017-05-29] MEDS ORDERED: BENZOCAINE OT PRN (13:00)
[2017-05-29 16:00] VITALS: BP 129/85
--- NOTE | 2017-05-29 19:20 | NUR ---
RN NOTES: PATIENT RESTING IN BED. NONLABORED BREATHING NOTED ON ROOM AIR. AOX4, DENIES PAIN AT THE MOMENT. PICCLINE ON RIGHT EXTREMITY PATENT AND INTACT. PATIENT KEPT COMFORTABLE IN BED, TURNED AND REPOSITIONED EVERY 2 HOURS. WOUND TREATMENT DONE. BED IN LOWEST LOCKED POSITION. CALL LIGHT WITHIN REACH. ENDORSED TO NEXT SHIFT
--- NOTE | 2017-05-29 19:40 | NUR ---
MS RN INITIAL NOTES PT IS IN BED AWAKE AND ALERT WITH FAMILY AT BEDSIDE. NO SIGNS OF SOB OR DISTRESS, BREATHING EVENLY AND UNLABORED ON RA. DENIES PAIN AT THIS TIME. DOUGLAS PICC LINE INTACT AND PATENT WITH FLUIDS RUNNING AT TKO. BED IS IN LOW AND LOCKED POSITION, CALL LIGHT WITHIN REACH. WILL CONTINUE TO MONITOR PT
[2017-05-29 22:33] VITALS: BP 111/79
[2017-05-30 00:16] VITALS: BP 125/74
[2017-05-30] MEDS: MEROPENEM 1 G in IV NS 0.9% 100 ML IV SCH ×2 (04:02→12:46)
[2017-05-30] MEDS: NEO/POLY B SULF/HC OTIC SOLN 10 ML BOTTLE OT SCH ×2 (04:03→12:51)
[2017-05-30] MEDS: VANCOMYCIN 1 GM in IV D5W 250 ML IV SCH (05:03)
[2017-05-30] MEDS: HYDROMORPHONE HCL 2 MG TABLET PO PRN ×2 (05:54→18:08)
--- NOTE | 2017-05-30 06:19 | NUR ---
MS RN CLOSING NOTES PT IS IN BED AWAKE AND ALERT. NO SIGNS OF SOB OR DISTRESS. BREATHING EVENLY AND UNLABORED ON RA. SUPRAPUBIC CATH IS INTACT AND DRAINING. NO ACUTE CHANGES THROUGHOUT THE SHIFT. BED IS IN LOW AND LOCKED POSITION, CALL LIGHT WITHIN REACH. WILL ENDORSE TO DAYSHIFT.
[2017-05-30 06:30] VITALS: BP 136/77
--- NOTE | 2017-05-30 07:15 | NUR ---
RN OPENING NOTES. PT A&0X2. PT TOLERATING ROOM AIR AND DENIES SOB. PT REPORTING PAIN MANAGEMENT ADEQUATE AT THIS TIME. PT WITH R UA PICCLINE INTACT AND OPERATIONAL WITH TKO. PT WITH SPC INTACT AND OPERATIONAL. PT BED WITH HANDRAILSX4 AND CALL LOPEZ WITHIN REACH. PT BRIEFED ON TODAY'S POC AND IS WITHOUT CONCERN OR COMPLAINT AT THIS TIME.
[2017-05-30 07:25] LABS: CALCIUM, SERUM 9.3 mg/dL (8.5-10.1); CREATININE 0.8 mg/dL (0.6-1.3); POTASSIUM 4.2 mmol/L (3.5-5.1)
[2017-05-30] MEDS: LACTOBACILLUS RHAMNOSUS GG 1 EACH CAP.SPRINK PO SCH ×2 (08:34→18:08)
[2017-05-30] MEDS: HYDROGEL DRESSING 90 GM TUBE TP SCH (08:34)
[2017-05-30 08:52] VITALS: BP 131/79
[2017-05-30 09:00] VITALS: BP 131/79
[2017-05-30] MEDS ORDERED: VANCOMYCIN 0.75 GM in IV D5W 250 ML IV SCH (14:00)
--- NOTE | 2017-05-30 18:27 | NUR ---
RN CLOSING NOTES. PT A&0X3 WITH MANY VISITORS THROUGHOUT SHIFT. PT TOLERATING ROOM AIR AND DENIES SOB, PT PAIN MANAGEMENT REMAINS ADEQUATE. PT WITH R UA PICCLINE INTACT AND OPERATIONAL WITH TKO. PT WITH SPC INTACT AND OPERATIONAL. PT DECLINED WOUND CARE THROUGHOUT SHIFT R/T TO HAVING VISITORS, PT REQUESTING IT DONE ON PM SHIFT. ALL OTHER NURSING DUTIES ATTENDED TO. PT BED WITH HANDRAILSX4 AND CALL LOPEZ WITHIN REACH. PT IS WITHOUT CONCERN OR COMPLAINT AT THIS TIME. WILL ENDORSE TO NIGHT NURSE.
[2017-05-30] MEDS ORDERED: DIAZ10TA4 PO (18:34)
[2017-05-30] MEDS ORDERED: HYDR8TAB2 PO (18:34)
[2017-05-30] MEDS ORDERED: SULF1TAB48 PO (18:34)
[2017-05-30] MEDS ORDERED: TRAM50TA2 PO (18:34)
--- NOTE | 2017-05-30 19:46 | NUR ---
MS RN INITIAL NOTES RECEIVED PATIENT AWAKE A/OX4, ABLE TO MAKE NEEDS KNOWN. FOR DISCHARGE, IN A HURRY TO LEAVE. PATIENT IN NO PAIN AT THIS TIME. NO RESPIRATORY DISTRESS NOTED. PATIENT IN ELECTRIC WHEELCHAIR. IN STABLE CONDITION. PER PATIENT HE HAS HIS OWN TRANSPORTATION AND HE'S ABLE TO DRIVE WITH NO PROBLEM. EXPLAINED TO PATIENT PICTURES NEEDED TO BE TAKEN BEFORE HE LEAVES. PATIENT REFUSED, DESPITE EXPLANATION OF HOSPITAL PROTOCOL. ALL BELONGINGS TAKEN WITH PATIENT. IV LINE REMOVED, PRESSURE DRESSING PLACED. ESCORTED PATIENT OUTSIDE. ID BAND REMOVED. PATIENT EDUCATION PROVIDED.
== END 2017-05-30 20:25 | disposition home or self-care (01) | DRG 570 ==
LOC: TELE1 05-26 09:08 → MEDSG1 05-26 20:14
PROVIDERS: ADMIT Nurse Practitioner Acute Care; ATTEND Nurse Practitioner Acute Care
PROC: 0KBP0ZZ Excision of Left Hip Muscle, Open Approach (ICD-10-PCS; principal; 2017-05-28)
PROC: 0KBV0ZZ Excision of Right Foot Muscle, Open Approach (ICD-10-PCS; 2017-05-28)
PROC: 0JBR0ZZ Excision of Left Foot Subcutaneous Tissue and Fascia, Open Approach (ICD-10-PCS; 2017-05-28)
DX: L03.116 Cellulitis of left lower limb (principal); L89.324 Pressure ulcer of left buttock, stage 4; G82.20 Paraplegia, unspecified; L89.514 Pressure ulcer of right ankle, stage 4; L89.623 Pressure ulcer of left heel, stage 3; E86.0 Dehydration; L89.613 Pressure ulcer of right heel, stage 3; L03.115 Cellulitis of right lower limb; Z86.718 Personal history of other venous thrombosis and embolism; D63.8 Anemia in other chronic diseases classified elsewhere; D72.829 Elevated white blood cell count, unspecified; M62.838 Other muscle spasm; I10 Essential (primary) hypertension; G89.4 Chronic pain syndrome; E78.5 Hyperlipidemia, unspecified; K21.9 Gastro-esophageal reflux disease without esophagitis; E66.9 Obesity, unspecified; Z68.31 Body mass index [BMI] 31.0-31.9, adult; F17.210 Nicotine dependence, cigarettes, uncomplicated; H60.90 Unspecified otitis externa, unspecified ear
CPT/HCPCS: 36415; 36569; 80048-TC; 80053-TC; 80061-TC; 80202-TC; 83540-TC; 83735-TC; 84100-TC; 85025-TC; 87081-TC; A4217; A6248; A6253; A6402; A6403; A6407; J1170; J2185; J3370; J7030; J7040; J7050; J7060

== ENCOUNTER 2017-06-28 15:56 | Inpatient (IN) | payer MEDICARE ==
[~2017-06-28] VITALS: Ht 190.5 cm; Wt 80.7 kg
[~2017-06-28 15:56] MED LIST changes: -GABA300C PO; -LACT1CAP72 PO; -PANT40TA4 PO; -RIVA10TA PO; +SULF1TAB48 PO; -ZOLP10TA2 PO
[2017-06-28] MEDS ORDERED: ACETAMINOPHEN 325 MG TABLET PO PRN (17:00)
[2017-06-28] MEDS ORDERED: HYDROMORPHONE INJ 2 MG/ML DISP.SYRIN IV PRN (17:00)
[2017-06-28] MEDS ORDERED: Z GUARD REMEDY 2 OZ OINT TP PRN (17:00)
[2017-06-28] MEDS ORDERED: ZOLPIDEM TARTRATE 5 MG TABLET PO PRN (17:00)
[2017-06-28] MEDS ORDERED: ONDANSETRON HCL/PF 4 MG/2 ML VIAL IVP PRN (17:00)
[2017-06-28] MEDS ORDERED: HYDROMORPHONE INJ 2 MG/ML DISP.SYRIN IV ONE (18:00)
[2017-06-28 20:00] VITALS: BP 110/61
[2017-06-28] MEDS: DIAZEPAM 10 MG TABLET PO PRN (20:44)
[2017-06-28] MEDS: HYDROMORPHONE INJ 2 MG/ML DISP.SYRIN IV PRN (23:21)
[2017-06-28] MEDS ORDERED: HYDROMORPHONE INJ 0.5 MG/0.5 ML SYRINGE IM PRN (23:30)
[2017-06-28] MEDS: HYDROMORPHONE INJ 2 MG/ML DISP.SYRIN IM PRN (23:42)
[2017-06-29] MEDS: NICOTINE PATCH (21MG) 21 MG PATCH.TD24 TD SCH ×2 (02:07→08:04)
[2017-06-29] MEDS: HYDROMORPHONE INJ 2 MG/ML DISP.SYRIN IM PRN ×4 (04:38→20:17)
[2017-06-29 06:38] LABS: BASOPHILS # (AUTO) 0.1 /CMM (0.0-0.2); BASOPHILS % (AUTO) 0.8 % (0.0-2.0); EOSINOPHILS # (AUTO) 0.4 /CMM (0.0-0.7); EOSINOPHILS % (AUTO) 3.4 % (0.0-6.0); HEMATOCRIT 35 % (39-51); HEMOGLOBIN 11.6 g/dL (13.5-17.5); LYMPHOCYTES # (AUTO) 2.2 /CMM (0.8-4.8); MEAN CORPUSCULAR HEMOGLOBIN 28 PG (26.0-33.0); MEAN CORPUSCULAR HGB CONC 33 g/dl (31.0-36.0); MEAN CORPUSCULAR VOLUME 83 fL (80-96); MONOCYTES # (AUTO) 1.3 /CMM (0.1-1.30); MONOCYTES % (AUTO) 12.6 % (2.0-12.0); NEUTROPHILS # (AUTO) 6.6 /CMM (1.8-8.9); NEUTROPHILS % (AUTO) 62.2 % (43.0-81.0); PLATELET COUNT (AUTO) 266 /CMM (150-450); RDW COEFFICIENT OF VARIATION 17.1 (11.5-15.0); WHITE BLOOD COUNT (AUTO) 10.6 K/uL (4.3-11.0)
[2017-06-29 06:49] LABS: ALBUMIN 2.7 g/dL (3.4-5.0); BILIRUBIN,TOTAL 0.5 mg/dL (0.2-1.0); CALCIUM, SERUM 8.2 mg/dL (8.5-10.1); CREATININE 0.8 mg/dL (0.6-1.3); MAGNESIUM 1.8 mg/dL (1.8-2.4); PHOSPHORUS 3.4 mg/dL (2.5-4.9); POTASSIUM 3.7 mmol/L (3.5-5.1); TOTAL PROTEIN, SERUM 7.5 g/dL (6.4-8.2)
[2017-06-29 08:00] VITALS: BP 108/57
[2017-06-29] MEDS ORDERED: HYDROGEL DRESSING 90 GM TUBE TP PRN (10:00)
[2017-06-29] MEDS ORDERED: HYDROGEL DRESSING 90 GM TUBE TP SCH (10:00)
[2017-06-29] MEDS: NEOMY SULF/BACITRAC ZN/POLY 15 GM TUBE TP SCH (11:00)
[2017-06-29] MEDS: CADEXOMER IODINE 40 GM TUBE TP SCH ×2 (11:00→22:47)
[2017-06-29 20:00] VITALS: BP 123/68
[2017-06-29 20:19] VITALS: BP 123/68
[2017-06-29 21:44] VITALS: BP 147/93
[2017-06-29 21:45] VITALS: BP 147/93
[2017-06-30] MEDS: DIAZEPAM 10 MG TABLET PO PRN (00:43)
[2017-06-30] MEDS: HYDROMORPHONE INJ 2 MG/ML DISP.SYRIN IM PRN ×4 (03:56→20:14)
[2017-06-30 04:31] VITALS: BP 131/73
[2017-06-30 08:00] VITALS: BP 143/63
[2017-06-30] MEDS: NICOTINE PATCH (21MG) 21 MG PATCH.TD24 TD SCH (09:15)
[2017-06-30] MEDS: NEOMY SULF/BACITRAC ZN/POLY 15 GM TUBE TP SCH (09:16)
[2017-06-30] MEDS: CADEXOMER IODINE 40 GM TUBE TP SCH ×2 (11:28→23:35)
[2017-06-30 16:00] VITALS: BP 117/64
[2017-06-30 20:00] VITALS: BP 113/58
[2017-07-01] MEDS: HYDROMORPHONE INJ 2 MG/ML DISP.SYRIN IM PRN ×4 (01:03→20:28)
[2017-07-01 04:00] VITALS: BP 107/53
[2017-07-01] MEDS: HYDROMORPHONE INJ 2 MG/ML DISP.SYRIN IV PRN (06:51)
[2017-07-01 08:00] VITALS: BP 117/68
[2017-07-01] MEDS: NICOTINE PATCH (21MG) 21 MG PATCH.TD24 TD SCH (08:31)
[2017-07-01] MEDS: NEOMY SULF/BACITRAC ZN/POLY 15 GM TUBE TP SCH (08:32)
[2017-07-01] MEDS: CADEXOMER IODINE 40 GM TUBE TP SCH ×2 (11:12→23:39)
[2017-07-01 16:00] VITALS: BP 139/67
[2017-07-01] MEDS: DIAZEPAM 10 MG TABLET PO PRN (17:37)
[2017-07-01 20:00] VITALS: BP 131/72
[2017-07-02] MEDS: HYDROMORPHONE INJ 2 MG/ML DISP.SYRIN IM PRN (01:06)
[2017-07-02 04:00] VITALS: BP 113/62
[2017-07-02 08:00] VITALS: BP 121/70
[2017-07-02] MEDS: HYDROMORPHONE INJ 2 MG/ML DISP.SYRIN IV PRN ×3 (09:16→12:19)
[2017-07-02] MEDS: NICOTINE PATCH (21MG) 21 MG PATCH.TD24 TD SCH (09:16)
[2017-07-02] MEDS: NEOMY SULF/BACITRAC ZN/POLY 15 GM TUBE TP SCH (09:17)
[2017-07-02] MEDS: DIAZEPAM 10 MG TABLET PO PRN (09:21)
[2017-07-02] MEDS ORDERED: HYDROMORPHONE INJ 0.5 MG/0.5 ML SYRINGE IM PRN (13:30)
[2017-07-02] MEDS: CADEXOMER IODINE 40 GM TUBE TP SCH (13:36)
[2017-07-02 16:00] VITALS: BP 129/73
[2017-07-02 20:00] VITALS: BP 135/76
== END 2017-07-02 21:30 | disposition home or self-care (01) | DRG 40 ==
LOC: MEDSG1 16:38
PROVIDERS: ADMIT Nurse Practitioner Acute Care; ATTEND Nurse Practitioner Acute Care
PROC: 0JBQ0ZZ Excision of Right Foot Subcutaneous Tissue and Fascia, Open Approach (ICD-10-PCS; principal; 2017-06-29)
DX: G90.4 Autonomic dysreflexia (principal); G82.50 Quadriplegia, unspecified; L89.224 Pressure ulcer of left hip, stage 4; S82.202A Unspecified fracture of shaft of left tibia, initial encounter for closed fracture; L89.893 Pressure ulcer of other site, stage 3; N31.9 Neuromuscular dysfunction of bladder, unspecified; S82.432A Displaced oblique fracture of shaft of left fibula, initial encounter for closed fracture; E78.5 Hyperlipidemia, unspecified; D63.8 Anemia in other chronic diseases classified elsewhere; F17.210 Nicotine dependence, cigarettes, uncomplicated; L89.324 Pressure ulcer of left buttock, stage 4; L89.513 Pressure ulcer of right ankle, stage 3; K21.9 Gastro-esophageal reflux disease without esophagitis; I10 Essential (primary) hypertension; Z86.718 Personal history of other venous thrombosis and embolism; M62.838 Other muscle spasm; X58.XXXA Exposure to other specified factors, initial encounter; Y93.9 Activity, unspecified; Y92.009 Unspecified place in unspecified non-institutional (private) residence as the place of occurrence of the external cause; G89.29 Other chronic pain; L90.5 Scar conditions and fibrosis of skin; N50.89 Other specified disorders of the male genital organs; Z99.3 Dependence on wheelchair; Z88.0 Allergy status to penicillin
CPT/HCPCS: 36415; 73590-TC; 80053-TC; 80061-TC; 83735-TC; 84100-TC; 85025-TC; 93971-TC; A4217; A4606; A6248; A6253; A6402; A6403; J1170; Z7610

== ENCOUNTER 2017-09-14 22:12 | Inpatient (IN) | payer MEDICARE ==
[~2017-09-14] VITALS: Ht 190.5 cm; Wt 121.6 kg
--- NOTE | 2017-09-14 22:55 | NUR ---
RN M/S NOTE RECEIVED PATIENT AOX3, W/C BOUND, PLEASANT AND COOPERATIVE WITH NURSING DENIES ANY CARDIAC OR RESPIRATORY DISTRESS, ABLE TO VERBALIZE NEEDS, REPORTED GENERALIZED PAIN DAILY, BLE WRAPPED, SKIN ASSESSED AND DOCUMENTED, KEPT CLEAN AND DRY, SUPRAPUBIC CATHETER DRAINING TO GRAVITY, DARK, STRONG ODOR, SAFETY MAINTAINED AT ALL TIMES, CALL LIGHT WITHIN REACH, BED IN LOW LOCKED POSITION, WILL CONTINUE TO MONITOR FOR ANY CHANGES IN CONDITION.
[2017-09-15] VITALS: BP 125/75
[2017-09-15] MEDS ORDERED: ONDANSETRON HCL/PF 4 MG/2 ML VIAL IVP PRN (01:30)
[2017-09-15] MEDS ORDERED: Z GUARD REMEDY 2 OZ OINT TP PRN (01:30)
[2017-09-15] MEDS ORDERED: ENOXAPARIN SODIUM 40 MG/0.4 ML DISP.SYRIN SQ SCH (01:30)
[2017-09-15] MEDS ORDERED: MAGNESIUM HYDROXIDE 30 ML UDC PO PRN (01:30)
[2017-09-15] MEDS ORDERED: ACETAMINOPHEN 325 MG TABLET PO PRN (01:30)
[2017-09-15] MEDS ORDERED: ZOLPIDEM TARTRATE 5 MG TABLET PO PRN (01:30)
[2017-09-15] MEDS ORDERED: MEROPENEM 1 G VIAL IV ONE (01:56)
[2017-09-15] MEDS ORDERED: MEROPENEM 1 G in IV NS 0.9% 100 ML IV SCH (02:00)
[2017-09-15 02:21] LABS: BASOPHILS # (AUTO) 0.2 /CMM (0.0-0.2); BASOPHILS % (AUTO) 2.3 % (0.0-2.0); EOSINOPHILS % (AUTO) 3.3 % (0.0-6.0); HEMATOCRIT 37 % (39-51); HEMOGLOBIN 11.9 g/dL (13.5-17.5); LYMPHOCYTES % (AUTO) 19.5 % (20.0-44.0); MEAN CORPUSCULAR HGB CONC 33 g/dl (31.0-36.0); MEAN CORPUSCULAR VOLUME 82 fL (80-96); MONOCYTES # (AUTO) 0.7 /CMM (0.1-1.30); MONOCYTES % (AUTO) 6.7 % (2.0-12.0); NEUTROPHILS # (AUTO) 7.1 /CMM (1.8-8.9); NEUTROPHILS % (AUTO) 68.2 % (43.0-81.0); PLATELET COUNT (AUTO) 388 /CMM (150-450); RDW COEFFICIENT OF VARIATION 17.6 (11.5-15.0); RED BLOOD CELL COUNT(AUTO) 4.45 MIL/uL (4.5-6.0); WHITE BLOOD COUNT (AUTO) 10.4 K/uL (4.3-11.0)
[2017-09-15 02:35] LABS: ALBUMIN 2.6 g/dL (3.4-5.0); BILIRUBIN,TOTAL 0.2 mg/dL (0.2-1.0); CALCIUM, SERUM 8.4 mg/dL (8.5-10.1); CREATININE 1.1 mg/dL (0.6-1.3); MAGNESIUM 1.8 mg/dL (1.8-2.4); PHOSPHORUS 3.3 mg/dL (2.5-4.9); POTASSIUM 3.4 mmol/L (3.5-5.1); TOTAL PROTEIN, SERUM 7.6 g/dL (6.4-8.2)
[2017-09-15] MEDS: PANTOPRAZOLE 40 MG TABLET.DR PO SCH ×2 (02:38→08:05)
[2017-09-15] MEDS: HYDROMORPHONE INJ 2 MG/ML DISP.SYRIN IV PRN ×4 (02:38→20:30)
[2017-09-15] MEDS: IV NS 0.9% 1,000 ML IV PRN ×2 (02:40→18:06)
[2017-09-15 02:44] LABS: THYROID STIMULATING HORMONE 3.133 uIU/mL (0.358-3.74)
--- NOTE | 2017-09-15 03:52 | NUR ---
RN M/S NOTE CALL TO DR YANG FOR BENADRYL PRN DUE TO PT C/O ITCH. NEW ORDER FOR BENADRYL 50MG IV Q6H PRN.
[2017-09-15] MEDS: diphenhydrAMINE HCL 50 MG/ML VIAL IV PRN ×2 (03:57→11:13)
[2017-09-15 04:00] VITALS: BP 120/61
--- NOTE | 2017-09-15 07:30 | NUR ---
RN MS NOTES PT IN BED, ASLEEP, RESPIRATIONS NORMAL, EASY TO AROUSE, ALERT AND ORIENTED, CALL LIGHT WITHIN REACH, WENT BACK TO SLEEP, KEPT PHYTOPATHOLOGIST BED.
[2017-09-15 08:00] VITALS: BP 147/78
[2017-09-15] MEDS: NICOTINE PATCH (21MG) 21 MG PATCH.TD24 TD SCH (08:04)
[2017-09-15] MEDS ORDERED: POTASSIUM CHLORIDE 20 MEQ TAB.PRT.SR PO SCH (11:00)
[2017-09-15] MEDS: MEROPENEM 1 G in IV NS 0.9% 100 ML IV SCH ×2 (11:09→20:26)
--- NOTE | 2017-09-15 11:52 | NUR ---
RN MS NOTES PT IN BED, SLEEPS INTERMITTENTLY, NO COMPLAINT OF PAIN AT THIS TIME, RESPIRATIONS NORMAL, IV FLUIDS INFUSING WELL, SCHEDULED MEDS GIVEN ORDERED, SEEN BY DR. MOODY, PLAN OF CARE DISCUSSED WITH PT, VERBALIZED UNDERSTANDING, NEEDS ATTENDED, CALL LIGHT WITHIN REACH.
[2017-09-15 12:46] LABS: APPEARANCE,URINE SL CLOUDY (CLEAR); BILIRUBIN,URINE NEGATIVE (NEGATIVE); BLOOD, URINE 1+ Ery/uL (NEGATIVE); COLOR,URINE YELLOW (YELLOW); KETONES,URINE NEGATIVE (NEGATIVE); LEUKOCYTE ESTERASE ,URINE 3+ (NEGATIVE); NITRITE, URINE POSITIVE (NEGATIVE); PH,URINE 7.5 (5.0-8.0); PROTEIN,URINE 1+ mg/dl (NEGATIVE); UGLUCOSE NEGATIVE (NEGATIVE); UROBILINOGEN,URINE 0.2 EU/dL (0.2)
[2017-09-15 13:12] LABS: BACTERIA,URINE Moderate /HPF (None Seen); SQUAMOUS EPITHELIAL CELL,UR Rare /HPF (None Seen); WBC,URINE 51-80 /HPF (0-3)
[2017-09-15 16:00] VITALS: BP 139/75
--- NOTE | 2017-09-15 18:31 | NUR ---
RN MS NOTES PT IN BED, AWAKE, ALERT AND ORIENTED, NO COMPLAINT OF PAIN AT THIS TIME, IV FLUIDS INFUSING WELL, CALL LIGHT WITHIN REACH, WOUND TREATMENTS AND DRESSING CHANGE DONE, NEEDS ATTENDED.
--- NOTE | 2017-09-15 19:20 | NUR ---
RN OPENING NOTES PT RESTING IN BED. NO COMPLAINTS OF PAIN, SOB, OR DISTRESS AT THIS TIME. PT HAS A SUPRAPUBIC CATHETER INTACT AND DRAINING WELL. PT HAS A LEFT UPPER ARM MIDLINE RUNNING NS @80 ML/HR. PT TOLERATING FLUID WELL. SAFETY PRECAUTIONS IN PLACE. BED IN LOWEST LOCKED POSITION, X2 SIDE RAILS UP, CALL LIGHT WITHIN REACH WILL CONTINUE TO MONITOR.
[2017-09-15 20:00] VITALS: BP 134/80
[2017-09-15] MEDS: ENOXAPARIN SODIUM 40 MG/0.4 ML DISP.SYRIN SQ SCH (20:27)
[2017-09-16] MEDS: HYDROMORPHONE INJ 2 MG/ML DISP.SYRIN IV PRN ×6 (00:11→23:57)
--- NOTE | 2017-09-16 01:27 | NUR ---
RN NOTES PT REQUESTED PRN PO TYLENOL 625MG FOR A HEADACHE. WILL ADMINISTER AND CONTINUE TO MONITOR.
[2017-09-16] MEDS: MEROPENEM 1 G in IV NS 0.9% 100 ML IV SCH ×3 (04:16→20:48)
[2017-09-16 04:55] VITALS: BP 115/72
[2017-09-16] MEDS: DIAZEPAM 10 MG TABLET PO PRN (05:19)
--- NOTE | 2017-09-16 05:19 | NUR ---
RN NOTES PT REQUESTED PRN VALIUM FOR NECK SPASM PAIN. WILL ADMINISTER AND CONTINUE TO MONITOR. PT VITAL SIGNS WITHIN NORMAL LIMITS.
[2017-09-16 06:44] LABS: BASOPHILS # (AUTO) 0.2 /CMM (0.0-0.2); BASOPHILS % (AUTO) 2.3 % (0.0-2.0); EOSINOPHILS % (AUTO) 4.7 % (0.0-6.0); HEMATOCRIT 37 % (39-51); LYMPHOCYTES # (AUTO) 1.9 /CMM (0.8-4.8); LYMPHOCYTES % (AUTO) 23.4 % (20.0-44.0); MEAN CORPUSCULAR HGB CONC 33 g/dl (31.0-36.0); MEAN CORPUSCULAR VOLUME 82 fL (80-96); MONOCYTES # (AUTO) 0.7 /CMM (0.1-1.30); MONOCYTES % (AUTO) 8.4 % (2.0-12.0); NEUTROPHILS # (AUTO) 4.9 /CMM (1.8-8.9); NEUTROPHILS % (AUTO) 61.2 % (43.0-81.0); PLATELET COUNT (AUTO) 376 /CMM (150-450); RED BLOOD CELL COUNT(AUTO) 4.48 MIL/uL (4.5-6.0); WHITE BLOOD COUNT (AUTO) 7.9 K/uL (4.3-11.0)
[2017-09-16 07:03] LABS: CALCIUM, SERUM 8.4 mg/dL (8.5-10.1); CREATININE 0.9 mg/dL (0.6-1.3); MAGNESIUM 1.9 mg/dL (1.8-2.4); POTASSIUM 3.7 mmol/L (3.5-5.1)
--- NOTE | 2017-09-16 07:12 | NUR ---
RN INITIAL NOTES: REC'D PT AWAKE ON BED, NOT IN ANY DISTRESS, A/O X 4, DENIES ANY PAIN & DISCOMFORT AT THIS TIME. ON ROOM AIR, NO SOB. HAS CLAUDIA MIDLINE, PATENT & INTACT W/ NO S/SX OF INFECTION/INFILTRATION NOTED, W/ NS X 80 CC/HR INFUSING WELL. HAS SUPRAPUBIC CATH DRAINING YELLOWISH URINE OUTPUT TO BSB. PROVIDED COMFORT & SAFETY MEASURES. BED KEPT LOW & IN LOCKED POS. CALL LIGHT PLACED W/IN REACH. WILL CONTINUE TO MONITOR & ATTEND PT NEEDS.
--- NOTE | 2017-09-16 07:30 | NUR ---
RN CLOSING NOTES PT RESTING IN BED. ALL PT NEEDS MET OVERNIGHT. PT HAS A SUPRAPUBIC CATHETER INTACT AND DRAINING WELL. PT HAS A LEFT UPPER ARM MIDLINE RUNNING NS @80 ML/HR. PT TOLERATING FLUID WELL. SAFETY PRECAUTIONS IN PLACE. BED IN LOWEST LOCKED POSITION, X2 SIDE RAILS UP, CALL LIGHT WITHIN REACH WILL ENDORSE TO DAY SHIFT FOR CONTINUITY OF CARE.
[2017-09-16] MEDS: PANTOPRAZOLE 40 MG TABLET.DR PO SCH (07:48)
[2017-09-16 08:00] VITALS: BP 132/80
[2017-09-16] MEDS: NICOTINE PATCH (21MG) 21 MG PATCH.TD24 TD SCH (08:23)
[2017-09-16] MEDS: IV NS 0.9% 1,000 ML IV PRN (08:48)
--- NOTE | 2017-09-16 11:00 | NUR ---
RN NOTES: PT SEEN & EXAMINED BY DR. MOODY W/ ORDERS MADE & CARRIED OUT.
[2017-09-16 16:00] VITALS: BP 135/76
--- NOTE | 2017-09-16 18:31 | NUR ---
RN CLOSING NOTES: NO ACUTE CHANGES NOTED W/IN SHIFT. PT TOLERATED ROOM AIR, NO SOB. CLAUDIA MIDLINE, KEPT PATENT & INTACT W/ NO S/SX OF INFECTION/INFILTRATION NOTED, W/ NS X 80 CC/HR INFUSING WELL. SUPRAPUBIC CATH KEPT PATENT & INTACT, BAG CHANGED. WOUND CARE DONE, STILL PENDING WOUND CONSULT. KEPT WELL RESTED. NEEDS ATTENDED. BED KEPT LOW & IN LOCKED POS. CALL LIGHT PLACED W/IN REACH. WILL ENDORSE TO PM RN FOR SOM.
[2017-09-16 20:00] VITALS: BP 131/59
[2017-09-16] MEDS: ENOXAPARIN SODIUM 40 MG/0.4 ML DISP.SYRIN SQ SCH (20:49)
[2017-09-17] MEDS: IV NS 0.9% 1,000 ML IV PRN ×2 (00:53→13:31)
[2017-09-17] MEDS: DIAZEPAM 10 MG TABLET PO PRN (02:01)
[2017-09-17] MEDS: HYDROMORPHONE INJ 2 MG/ML DISP.SYRIN IV PRN ×5 (03:45→22:54)
[2017-09-17 04:00] VITALS: BP 125/61
[2017-09-17] MEDS: MEROPENEM 1 G in IV NS 0.9% 100 ML IV SCH ×3 (05:17→21:26)
--- NOTE | 2017-09-17 07:30 | NUR ---
MSRN OPENING NOTES. PT RECEIVED A&0X3, RESTING IN BED. PT TOLERATING ROOM AIR AND REPORTING 9/10 GENERALIZED PAIN. PT WITH L UA MIDLINE INTACT AND OPERATIONAL. PT REPOSITIONED. PT BED IN LOWEST LOCKED POSITION WITH HANDRAILSX3 AND CALL LOPEZ WITHIN REACH. PT BRIEFED ON TODAY'S POC AND IS WITHOUT CONCERN OR COMPLAINT.
[2017-09-17 08:00] VITALS: BP 158/81
[2017-09-17] MEDS: PANTOPRAZOLE 40 MG TABLET.DR PO SCH (08:07)
[2017-09-17] MEDS: NICOTINE PATCH (21MG) 21 MG PATCH.TD24 TD SCH (08:07)
--- NOTE | 2017-09-17 15:00 | NUR ---
PT SEEN BY MD OVALLE AND MD KIM.
[2017-09-17 16:00] VITALS: BP_SYST 129; BP_SYST 141; BP_DIAS 69; BP_DIAS 75
--- NOTE | 2017-09-17 18:10 | NUR ---
MSRN CLOSING NOTES. PT REMAINS A&0X3, RESTING IN BED. PT TOLERATING ROOM AIR AND REPORTING CURRENT PAIN MANAGEMENT ADEQUATE. PT L UA MIDLINE INTACT AND OPERATIONAL. PT BED IN LOWEST LOCKED POSITION WITH HANDRAILSX3 AND CALL LOPEZ WITHIN REACH. ALL DAY NURSE DUTIES ATTENDED TO AND PT IS WITHOUT CONCERN OR COMPLAINT. WILL ENDORSE TO NIGHT NURSE AT BEDSIDE FOR SOM.
[2017-09-17 19:52] LABS: APPEARANCE,URINE CLOUDY (CLEAR); BILIRUBIN,URINE NEGATIVE (NEGATIVE); BLOOD, URINE 3+ Ery/uL (NEGATIVE); COLOR,URINE YELLOW (YELLOW); KETONES,URINE NEGATIVE (NEGATIVE); LEUKOCYTE ESTERASE ,URINE 3+ (NEGATIVE); NITRITE, URINE NEGATIVE (NEGATIVE); PROTEIN,URINE TRACE mg/dl (NEGATIVE); UGLUCOSE NEGATIVE (NEGATIVE); UROBILINOGEN,URINE 0.2 EU/dL (0.2)
[2017-09-17 19:56] LABS: BACTERIA,URINE Moderate /HPF (None Seen); RBC,URINE 51-80 /HPF (0-2); SQUAMOUS EPITHELIAL CELL,UR Few /HPF (None Seen); WBC,URINE TOO NUMEROUS TO COUN /HPF (0-3)
[2017-09-17 20:00] VITALS: BP 142/80
[2017-09-17] MEDS: ENOXAPARIN SODIUM 40 MG/0.4 ML DISP.SYRIN SQ SCH (21:27)
[2017-09-17 22:55] LABS: BASOPHILS # (AUTO) 0.1 /CMM (0.0-0.2); BASOPHILS % (AUTO) 0.8 % (0.0-2.0); EOSINOPHILS % (AUTO) 3.7 % (0.0-6.0); HEMATOCRIT 40 % (39-51); HEMOGLOBIN 12.8 g/dL (13.5-17.5); LYMPHOCYTES % (AUTO) 18.3 % (20.0-44.0); MEAN CORPUSCULAR HGB CONC 32 g/dl (31.0-36.0); MEAN CORPUSCULAR VOLUME 83 fL (80-96); MONOCYTES # (AUTO) 0.4 /CMM (0.1-1.30); MONOCYTES % (AUTO) 3.5 % (2.0-12.0); NEUTROPHILS # (AUTO) 8.2 /CMM (1.8-8.9); NEUTROPHILS % (AUTO) 73.7 % (43.0-81.0); PLATELET COUNT (AUTO) 482 /CMM (150-450); RDW COEFFICIENT OF VARIATION 17.9 (11.5-15.0); WHITE BLOOD COUNT (AUTO) 11.1 K/uL (4.3-11.0)
[2017-09-17 23:05] LABS: CALCIUM, SERUM 8.6 mg/dL (8.5-10.1); CREATININE 0.9 mg/dL (0.6-1.3); POTASSIUM 3.3 mmol/L (3.5-5.1)
[2017-09-18] MEDS: HYDROMORPHONE INJ 2 MG/ML DISP.SYRIN IV PRN ×6 (02:37→23:18)
[2017-09-18 04:00] VITALS: BP 145/74
[2017-09-18] MEDS: MEROPENEM 1 G in IV NS 0.9% 100 ML IV SCH ×3 (05:12→20:14)
[2017-09-18] MEDS: IV NS 0.9% 1,000 ML IV PRN ×2 (05:46→20:24)
[2017-09-18 06:12] LABS: BASOPHILS % (AUTO) 0.4 % (0.0-2.0); EOSINOPHILS % (AUTO) 4.1 % (0.0-6.0); HEMATOCRIT 37 % (39-51); LYMPHOCYTES # (AUTO) 1.9 /CMM (0.8-4.8); LYMPHOCYTES % (AUTO) 19.2 % (20.0-44.0); MEAN CORPUSCULAR HGB CONC 33 g/dl (31.0-36.0); MEAN CORPUSCULAR VOLUME 83 fL (80-96); MONOCYTES # (AUTO) 0.1 /CMM (0.1-1.30); MONOCYTES % (AUTO) 1.3 % (2.0-12.0); NEUTROPHILS # (AUTO) 7.4 /CMM (1.8-8.9); PLATELET COUNT (AUTO) 404 /CMM (150-450); RDW COEFFICIENT OF VARIATION 17.3 (11.5-15.0); RED BLOOD CELL COUNT(AUTO) 4.45 MIL/uL (4.5-6.0); WHITE BLOOD COUNT (AUTO) 9.9 K/uL (4.3-11.0)
[2017-09-18 06:23] LABS: CALCIUM, SERUM 8.5 mg/dL (8.5-10.1); CREATININE 0.7 mg/dL (0.6-1.3); POTASSIUM 3.4 mmol/L (3.5-5.1)
[2017-09-18 08:00] VITALS: BP 119/73
[2017-09-18] MEDS: NICOTINE PATCH (21MG) 21 MG PATCH.TD24 TD SCH (09:29)
[2017-09-18] MEDS: PANTOPRAZOLE 40 MG TABLET.DR PO SCH (09:29)
[2017-09-18] MEDS: HYDROGEL DRESSING 90 GM TUBE TP SCH (09:39)
--- NOTE | 2017-09-18 09:53 | NUR ---
WOUND CARE CONSULT WOUND CARE RECEIVED CONSULT FOR MULTIPLE WOUNDS. WOUND CARE WILL DEFER CONSULT AND ALL TREATMENT PLANS TO SURGICAL TEAM WHO ARE CURRENTLY FOLLOWING PATIENT. PATIENT WT 268LBS, BERYL MAX 2 WITH ETS AIR BED ORDERED FOR TREATMENT. PATIENT WITH IDA AT 14, ALL PRESSURE ULCER PREVENTION MEASURES ARE NOTED TO BE IN PLACE AT THIS TIME. WILL SEE PRN.
[2017-09-18] MEDS ORDERED: POTASSIUM CHLORIDE 20 MEQ TAB.PRT.SR PO SCH (13:00)
[2017-09-18 16:00] VITALS: BP 153/82
--- NOTE | 2017-09-18 18:48 | NUR ---
RN CLOSING NOTES: WOUND CARE DONE AND SUPRAPUBIC CATH SITE CLEANSED. PT STILL ON REGULAR MATTRESS, BERYL SLIME ON ORDER, WAITING FOR DELIVERY. PAIN MANAGEMENT WITH DILAUDID 1.5MG IV FOR C/O LOWER BACK PAIN. PT SKIPPED DINNER BECAUSE HE ORDERED FOOD FROM OUTSIDE. MIDLINE CATH DRESSING CHANGED USING STERILE TECHNIQUE. BED LOW AND LOCKED. CALL LIGHT WITHIN REACHED. WILL CONTINUE TO MONITOR.
[2017-09-18 20:00] VITALS: BP 150/75
[2017-09-18] MEDS: ENOXAPARIN SODIUM 40 MG/0.4 ML DISP.SYRIN SQ SCH (20:24)
[2017-09-19] MEDS: HYDROMORPHONE INJ 2 MG/ML DISP.SYRIN IV PRN ×4 (03:59→14:50)
[2017-09-19 04:00] VITALS: BP 155/84
[2017-09-19] MEDS: MEROPENEM 1 G in IV NS 0.9% 100 ML IV SCH ×2 (05:17→12:49)
--- NOTE | 2017-09-19 07:30 | NUR ---
RN NOTES PT ASLEEP AND EASILY AROUSABLE,IN ROOM AIR AND TOLERATING WELL. RESPIRATION EVEN AND UNLABORED. NO S/SX OF DISTRESS AT THIS TIME, NO C/O PAIN AT THIS TIME, ON LOW BED TO ENSURE SAFETY. SAFE HAZARD FREE ENVIRONMENT PROVIDED. CALL LIGHT WITHIN EASY TO REACH. WILL CONTINUE TO MONITOR.
[2017-09-19] MEDS: PANTOPRAZOLE 40 MG TABLET.DR PO SCH (08:05)
[2017-09-19] MEDS: NICOTINE PATCH (21MG) 21 MG PATCH.TD24 TD SCH (08:05)
[2017-09-19] MEDS: HYDROGEL DRESSING 90 GM TUBE TP SCH (08:07)
--- NOTE | 2017-09-19 13:27 | NUR ---
RECEIVED AN ORDER FROM DR. REGINA ARMENTA RE: THE PATIENT'S 6 WEEK LONG-TERM COURSE OF ANTIBIOTIC. DR. TAPIA ORDERED PICC LINE INSERTION, NOTED AND CARRIED OUT.
--- NOTE | 2017-09-19 13:36 | NUR ---
DR. ARMENTA CHANGED HIS MIND RE: THE PICC LINE INSERTION. PER DR. ARMENTA, HE WILL CHANGE THE DISCHARGE MEDICATION OF THE PATIENT TO A TABLET FORM. PATIENT MADE AWARE.
[2017-09-19 16:00] VITALS: BP 145/76
--- NOTE | 2017-09-19 18:08 | NUR ---
RN NOTES PATIENT A/OX4, BREATHING EVEN AND UNLABORED, NO SOB NOTED, PATIENT'S WOUND TREATMENT RENDERED, SKIN CARE RENDERED, ASSISTED WITH TURNING AND REPOSITIONING. PATIENT REQUESTED TO BE DISCHARGED TODAY, REGINA BURK MADE AWARE. SKIN ASSESSMENT COMPLETED, PHOTOS TAKEN AND PLACED IN CHART. HAMMER RUNNER ARRANGED HOME HEALTH WITH [facility], AND IV MEDICATIONS. JUST WAITING FOR MD'S ORDER AT THIS TIME. NEEDS ATTENDED AND MET, CALL LIGHT WITHIN REACH, WILL CONTINUE TO MONITOR.
--- NOTE | 2017-09-19 19:04 | NUR ---
RN NOTES REGINA FAMILY WORKER AWARE OF PATIENT'S REQUEST FOR DISCHARGE, STILL WAITING FOR FAMILY WORKER TO PUT THE ORDER IN THE SYSTEM. PATIENT A/OX3, INFORMED OF SITUATION AT THIS TIME. NEEDS ATTENDED AND MET, CALL LIGHT WITHIN REACH, ENDORSED TO CATTLE KNOCKER FOR SOM.
--- NOTE | 2017-09-19 20:26 | NUR ---
MS RN NOTES PT DISCHARGED STABLE, HEALTH TEACHING DONE. UPON CHECKING THE MIDLINE. THE LINE IS NOT FLUSHING, SO THE RN PREPARED THE MATERIALS TO HAVE THE MIDLINE DRESSING CHANGED. WENT BACK TO THE ROOM, THE PATIENT IS NOT IN THE ROOM ANYMORE, INFORMED THE CHARGE NURSE ABOUT THE MISSING PATIENT. WENT TO THE PARKING LOT AND SEEN THE PATIENT DRIVING HIS CAR. EXPLAINED THAT HE CANNOT LEAVE BECAUSE HIS MIDLINE IS NOT WORKING. PT VERBALIZED HE ALREADY TALKED TO GREGORIO YANG REGARDING THE MIDLINE. PT ALSO VERBALIZED THAT THE HE IS COMING BACK AND GREGORIO YANG WILL CHECK ON IT.
--- NOTE | 2017-09-19 20:51 | NUR ---
RN NOTES 2025 sent message to Nic Bojorquez regarding patient leaving the facility with midline unable to flush and dressing not changed because patient just left the unit without telling the staff although patient has discharge orders already and discharge instructions given. Verified with Nic what patient stated while talking to him in the parking lot as was documented by the primary RN, Toni. Per Nic, he is out of town and will call the patient later. Benjamin Monge, family consultant for [employer] notified. supervisor backfilling, Karla notified.
[2017-10-20] MEDS ORDERED: LEVO500T90 PO (11:07)
[2017-10-20] MEDS ORDERED: LACT1CAP72 PO (11:07)
[2017-10-20] MEDS ORDERED: SULF1TAB48 PO (11:07)
== END 2017-09-19 20:00 | disposition home health service (06) | DRG 673 ==
LOC: MEDSG1 22:34
PROVIDERS: ADMIT Nurse Practitioner Acute Care; ATTEND Nurse Practitioner Acute Care
PROC: 05HY33Z Insertion of Infusion Device into Upper Vein, Percutaneous Approach (ICD-10-PCS; 2017-09-15)
PROC: 0JB70ZZ Excision of Back Subcutaneous Tissue and Fascia, Open Approach (ICD-10-PCS; principal; 2017-09-17)
PROC: 0JBR0ZZ Excision of Left Foot Subcutaneous Tissue and Fascia, Open Approach (ICD-10-PCS; 2017-09-17)
PROC: 0JBQ0ZZ Excision of Right Foot Subcutaneous Tissue and Fascia, Open Approach (ICD-10-PCS; 2017-09-17)
DX: N39.0 Urinary tract infection, site not specified (principal); L89.513 Pressure ulcer of right ankle, stage 3; L89.623 Pressure ulcer of left heel, stage 3; L89.894 Pressure ulcer of other site, stage 4; L89.324 Pressure ulcer of left buttock, stage 4; G82.20 Paraplegia, unspecified; K21.9 Gastro-esophageal reflux disease without esophagitis; Z86.718 Personal history of other venous thrombosis and embolism; F17.210 Nicotine dependence, cigarettes, uncomplicated; E78.5 Hyperlipidemia, unspecified; G89.4 Chronic pain syndrome; Z87.440 Personal history of urinary (tract) infections; E66.01 Morbid (severe) obesity due to excess calories; Z68.33 Body mass index [BMI] 33.0-33.9, adult; M62.838 Other muscle spasm; I10 Essential (primary) hypertension; E87.6 Hypokalemia; G90.4 Autonomic dysreflexia; N13.9 Obstructive and reflux uropathy, unspecified; Z88.0 Allergy status to penicillin; D63.8 Anemia in other chronic diseases classified elsewhere; D72.829 Elevated white blood cell count, unspecified; B96.5 Pseudomonas (aeruginosa) (mallei) (pseudomallei) as the cause of diseases classified elsewhere
CPT/HCPCS: 36415; 36569; 73590-TC; 73630-TC; 80048-TC; 80053-TC; 80061-TC; 81000-TC; 83540-TC; 83735-TC; 84100-TC; 84443-TC; 85025-TC; 85652-TC; 87081-TC; 87086-TC; 87186-TC; A4606; A6248; A6402; A6403; J1170; J1200; J1650; J2185; J3490; J7030; Z7610

== ENCOUNTER 2017-12-02 20:56 | Inpatient (IN) | payer MEDICARE ==
[~2017-12-02] VITALS: Ht 182.9 cm; Wt 127.9 kg
[~2017-12-02 20:56] MED LIST changes: +LACT1CAP72 PO; +LEVO500T90 PO
[2017-12-02 21:45] VITALS: BP 122/38
[2017-12-02] MEDS ORDERED: ACETAMINOPHEN 325 MG TABLET PO PRN (22:00)
[2017-12-02] MEDS ORDERED: ZOLPIDEM TARTRATE 5 MG TABLET PO PRN (22:00)
[2017-12-02] MEDS ORDERED: ONDANSETRON HCL/PF 4 MG/2 ML VIAL IVP PRN (22:00)
[2017-12-02] MEDS: IV NS 0.9% 1,000 ML IV PRN (22:24)
[2017-12-02 23:01] LABS: BASOPHILS % (AUTO) 0.3 % (0.0-2.0); EOSINOPHILS % (AUTO) 0.3 % (0.0-6.0); HEMATOCRIT 38 % (39-51); HEMOGLOBIN 12.4 g/dL (13.5-17.5); MEAN CORPUSCULAR HEMOGLOBIN 28 PG (26.0-33.0); MEAN CORPUSCULAR HGB CONC 32 g/dl (31.0-36.0); MEAN CORPUSCULAR VOLUME 86 fL (80-96); NEUTROPHILS % (AUTO) 87.4 % (43.0-81.0); PLATELET COUNT (AUTO) 296 /CMM (150-450); RDW COEFFICIENT OF VARIATION 17.5 (11.5-15.0); RED BLOOD CELL COUNT(AUTO) 4.48 MIL/uL (4.5-6.0); WHITE BLOOD COUNT (AUTO) 18.4 K/uL (4.3-11.0)
[2017-12-02 23:02] LABS: BASOPHILS # (AUTO) 0.1 /CMM (0.0-0.2); LYMPHOCYTES # (AUTO) 1.7 /CMM (0.8-4.8); MONOCYTES # (AUTO) 0.5 /CMM (0.1-1.30); NEUTROPHILS # (AUTO) 16.1 /CMM (1.8-8.9)
[2017-12-02 23:11] LABS: BAND % (MANUAL) 2 % (0.0-5.0); LYMPHOCYTES % (MANUAL) 11 % (16-48); MONOCYTES % (MANUAL) 3 % (0-11.0); NEUTROPHILS % (MANUAL) 84 (42-76)
[2017-12-02 23:14] LABS: CALCIUM, SERUM 8.3 mg/dL (8.5-10.1); POTASSIUM 3.4 mmol/L (3.5-5.1)
[2017-12-02 23:18] LABS: ALBUMIN 3.1 g/dL (3.4-5.0); BILIRUBIN,TOTAL 0.8 mg/dL (0.2-1.0); MAGNESIUM 1.5 mg/dL (1.8-2.4); PHOSPHORUS 3.2 mg/dL (2.5-4.9)
[2017-12-02 23:26] LABS: THYROID STIMULATING HORMONE 0.868 uIU/mL (0.358-3.74)
[2017-12-02] MEDS ORDERED: IV NS 0.9% 1,000 ML IV ONE (23:30)
[2017-12-02] MEDS ORDERED: IBUPROFEN 600 MG TABLET PO ONE (23:30)
[2017-12-02] MEDS: ENOXAPARIN SODIUM 40 MG/0.4 ML DISP.SYRIN SQ SCH (23:34)
[2017-12-03] VITALS: BP 121/53
[2017-12-03] MEDS ORDERED: VANCOMYCIN 2 GM in IV NS 0.9% 500 ML IV ONE ×2
--- NOTE | 2017-12-03 | NUR ---
UNABLE TO INSERT PERIPHERAL IV. PER GREGORIO YANG NOBODY CAN INSERT MIDLINE UNTIL MORNING. 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 CHARGE NURSE AWARE
[2017-12-03] MEDS ORDERED: LEVOFLOXACIN 500 MG /D5W 100ML 100 ML IV ONE (00:17)
[2017-12-03] MEDS ORDERED: VANCOMYCIN 1 GM VIAL ONE (00:17)
[2017-12-03] MEDS: LEVOFLOXACIN 500 MG /D5W 100ML 500 MG in PREMIX 1 EA IV SCH ×2 (00:37→21:24)
[2017-12-03 04:00] VITALS: BP 107/64
[2017-12-03 04:01] LABS: APPEARANCE,URINE CLOUDY (CLEAR); BILIRUBIN,URINE NEGATIVE (NEGATIVE); BLOOD, URINE 2+ Ery/uL (NEGATIVE); COLOR,URINE YELLOW (YELLOW); KETONES,URINE NEGATIVE (NEGATIVE); LEUKOCYTE ESTERASE ,URINE 3+ (NEGATIVE); NITRITE, URINE POSITIVE (NEGATIVE); PH,URINE 7.5 (5.0-8.0); PROTEIN,URINE 1+ mg/dl (NEGATIVE); UGLUCOSE NEGATIVE (NEGATIVE); UROBILINOGEN,URINE 0.2 EU/dL (0.2)
[2017-12-03 04:30] LABS: BACTERIA,URINE Few /HPF (None Seen); SQUAMOUS EPITHELIAL CELL,UR Few /HPF (None Seen); WBC,URINE 51-80 /HPF (0-3)
[2017-12-03 06:32] LABS: BASOPHILS % (AUTO) 0.2 % (0.0-2.0); EOSINOPHILS % (AUTO) 0.6 % (0.0-6.0); HEMATOCRIT 38 % (39-51); HEMOGLOBIN 12.4 g/dL (13.5-17.5); LYMPHOCYTES # (AUTO) 1.3 /CMM (0.8-4.8); LYMPHOCYTES % (AUTO) 8.8 % (20.0-44.0); MEAN CORPUSCULAR HEMOGLOBIN 28 PG (26.0-33.0); MEAN CORPUSCULAR HGB CONC 33 g/dl (31.0-36.0); MEAN CORPUSCULAR VOLUME 86 fL (80-96); MONOCYTES # (AUTO) 0.8 /CMM (0.1-1.30); MONOCYTES % (AUTO) 5.6 % (2.0-12.0); NEUTROPHILS # (AUTO) 12.1 /CMM (1.8-8.9); NEUTROPHILS % (AUTO) 84.8 % (43.0-81.0); PLATELET COUNT (AUTO) 271 /CMM (150-450); RDW COEFFICIENT OF VARIATION 17.7 (11.5-15.0); RED BLOOD CELL COUNT(AUTO) 4.43 MIL/uL (4.5-6.0); WHITE BLOOD COUNT (AUTO) 14.2 K/uL (4.3-11.0)
[2017-12-03] MEDS: HYDROMORPHONE INJ 2 MG/ML DISP.SYRIN IV PRN ×4 (06:34→18:29)
[2017-12-03 06:47] LABS: ALBUMIN 2.9 g/dL (3.4-5.0); BILIRUBIN,TOTAL 0.7 mg/dL (0.2-1.0); CREATININE 0.8 mg/dL (0.6-1.3); MAGNESIUM 1.6 mg/dL (1.8-2.4); PHOSPHORUS 2.9 mg/dL (2.5-4.9); POTASSIUM 3.1 mmol/L (3.5-5.1); TOTAL PROTEIN, SERUM 7.7 g/dL (6.4-8.2)
[2017-12-03 06:49] VITALS: BP 107/64
[2017-12-03] MEDS ORDERED: HYDR8TAB2 PO (07:29)
[2017-12-03] MEDS ORDERED: DIAZ10TA4 PO (07:29)
[2017-12-03] MEDS ORDERED: ZOLP10TA2 PO (07:29)
[2017-12-03] MEDS ORDERED: TRAM50TA2 PO (07:29)
--- NOTE | 2017-12-03 07:30 | NUR ---
MS RN OPENING NOTE RECEIVED REPORT FROM PM NURSE.PATIENT IS AXOX4.NO SOB NOT DISTRESS NOTED AT THIS TIME.ON ROOM AIR.R EXTERNAL IJ WITH IVF NS @ 75CC/HR.HAS SUPRAPUBIC CATH. BED IS IN LOW LOCKED POSITION.CALL LIGHT IN REACH.SRX3.WILL CONTINUE TO MONITOR.
[2017-12-03] MEDS ORDERED: FEE PK DOSING 1 MIN EA MC ONE (07:32)
[2017-12-03 08:00] VITALS: BP 116/67
[2017-12-03] MEDS: Magnesium 1GM/D5W 100ML PREMIX 100 ML IV SCH ×2 (09:48→16:35)
[2017-12-03] MEDS: POTASSIUM CHLORIDE 20 MEQ TAB.PRT.SR PO SCH ×3 (11:30→13:51)
--- NOTE | 2017-12-03 11:55 | NUR ---
PERIOPERATIVE MANAGER PATIENT WT AT 280LBS. NEEDS BARIATRIC BED WITH ETS AIR FOR SKIN MANAGEMENT AND TREATMENT. ORDERED BY PERIOPERATIVE MANAGER VIA CENTRAL. DISCUSSED WITH NURSING.
[2017-12-03] MEDS: VANCOMYCIN 1.5 GM in IV D5W 500 ML IV SCH (12:44)
[2017-12-03 16:00] VITALS: BP_SYST 124; BP_SYST 143; BP_DIAS 60; BP_DIAS 83
[2017-12-03] MEDS: HYDROGEL DRESSING 90 GM TUBE TP SCH (16:35)
--- NOTE | 2017-12-03 19:00 | NUR ---
RN NOTE PATIENT NON COMPLAINT ABOUT TURNING AND REPOSITIONING.EDUCATED THE PATIENT.STILL DONT WANT TO DO CLEANING AND REPOSITION AND DRESSING.
--- NOTE | 2017-12-03 19:20 | NUR ---
MS RN CLOSING NOTE .PATIENT IS AXOX4.NO SOB NOT DISTRESS NOTED AT THIS TIME.ON ROOM AIR.INSERTED,DOUGLAS MIDLINE NS @ 75CC/HR.HAS SUPRAPUBIC CATH. ON BARIATRIC BED.B FOOT WOUND DEBRIDEMENT DONESEEN BY DIETION RECOMMENDATION TOLD TO .OK TO PLACE ORDER.BED IS IN LOW LOCKED POSITION.CALL LIGHT IN REACH.SRX3.ENDORSED TO PM NURSE FOR SOM.
[2017-12-03 20:00] VITALS: BP 128/62
[2017-12-03] MEDS: ENOXAPARIN SODIUM 40 MG/0.4 ML DISP.SYRIN SQ SCH (21:25)
[2017-12-03] MEDS: IV NS 0.9% 1,000 ML IV PRN (22:05)
[2017-12-04] MEDS: VANCOMYCIN 1.5 GM in IV D5W 500 ML IV SCH ×2 (00:35→12:36)
--- NOTE | 2017-12-04 01:00 | NUR ---
RN PT NOTED WITH RIGHT UPPER ARM SWELLING, MIDLINE INFILTRATED, IVF STOPPED AND GREGORIO TREY NOTIFIED .MIDLINE REMOVED PER GREGORIO YANG AND WARM COMPRESS APPLIED.
[2017-12-04] MEDS: HYDROMORPHONE INJ 2 MG/ML DISP.SYRIN IV PRN ×5 (01:03→21:29)
--- NOTE | 2017-12-04 01:30 | NUR ---
RN GREGORIO YANG AT BEDSIDE, NEW MIDLINE PLACED ON L UPPER ARM #18, WITH GOOD BLOOD RETURN. OK TO USE PER GREGORIO YANG
[2017-12-04 04:00] VITALS: BP 106/55
--- NOTE | 2017-12-04 07:25 | NUR ---
MS RN NOTE: RECEIVED PATIENT IN BED, AWAKE, ALERT AND VERBALLY RESPONSIVE. ABLE TO MAKE HIS NEEDS KNOWN. SATURATING 98% IN ROOM AIR. DENIED ANY PAIN AT THIS TIME. HOB ELEVATED AT SEMI-SANCHEZ'S POSITION. UPON RECEIVING THE REPORT FROM THE PM SHIFT NURSE, SHE SAID THAT THE PATIENT WAS S/P (L) HEEL DEBRIDEMENT YESTERDAY AND PATIENT REFUSED TO HAVE THE PHOTO TAKEN. WILL FOLLOW-UP TODAY. SPOKE WITH THE PATIENT RE: THE PLAN FOR THE DAY INCLUDING THE WOUND TREATMENT ON HIS (B) LE AND ON TAKING PICTURE OF THE (L) HEEL. PATIENT WAS AGREEABLE TO HAVE IT DONE LATER TODAY. (R) UA MIDLINE WAS NOTED PATENT AND INTACT WITH 2 LUMENS, NOTED WITH GOOD BLOOD RETURN. BED ALARMED AND LOCKED AT ALL TIMES. CALL LIGHT WITHIN REACH.
[2017-12-04 07:44] LABS: CALCIUM, SERUM 7.9 mg/dL (8.5-10.1); CREATININE 0.6 mg/dL (0.6-1.3); POTASSIUM 3.4 mmol/L (3.5-5.1)
[2017-12-04 08:00] VITALS: BP 141/74
[2017-12-04] MEDS: PROSOURCE / PROSTAT (PYXIS) 30 ML UDC GT SCH ×3 (08:14→16:29)
[2017-12-04] MEDS: ASCORBIC ACID 500 MG TABLET PO SCH (08:14)
[2017-12-04] MEDS: MULTIVITAMINS,THERAGRAN 1 UDTAB TABLET PO SCH (08:14)
[2017-12-04] MEDS: HYDROGEL DRESSING 90 GM TUBE TP SCH (08:17)
[2017-12-04] MEDS ORDERED: COD LIVER OIL/ZINC OXIDE 120 GM TUBE TP SCH (09:00)
[2017-12-04] MEDS: ZINC OXIDE 56.7 GM TUBE TP SCH (09:46)
--- NOTE | 2017-12-04 10:01 | NUR ---
WOUND CARE CONSULT WOUND CARE RECEIVED CONSULT FOR MULTIPLE WOUNDS. WOUND CARE WILL DEFER CONSULT AND ALL TREATMENT PLANS TO SURGICAL TEAM WHO ARE CURRENTLY FOLLOWING. PATIENT WITH IDA AT 11. PATIENT ON BARIMAX 2 BED WITH ETS AIR WT IS 282LBS. ALL PRESSURE ULCER PREVENTION MEASURES ARE NOTED TO BE IN PLACE AT THIS TIME. WILL SEE PRN.
[2017-12-04] MEDS: NYSTATIN TOP POWDER 15 GM BOTTLE TP SCH ×2 (10:43→16:31)
[2017-12-04] MEDS ORDERED: POTASSIUM CHLORIDE 20 MEQ TAB.PRT.SR PO SCH (12:00)
[2017-12-04] MEDS: IV NS 0.9% 1,000 ML IV PRN (14:17)
[2017-12-04 16:00] VITALS: BP 130/72
--- NOTE | 2017-12-04 17:40 | NUR ---
MS RN NOTE: PATIENT'S (L) HEEL WOUND DRESSING CHANGE WAS DONE AND PHOTO WAS TAKEN FOR THE S/P WOUND DEBRIDEMENT THAT WAS DONE YESTERDAY. PER APPRENTICE CARPENTER NURSE, THE PATIENT REFUSED THE PHOTO TO BE TAKEN YESTERDAY POST DEBRIDEMENT. PHOTO WAS SIGNED AND FILED ON THE PATIENT'S CHART. PATIENT TOLERATED THE WOUND DRESSING CHANGE.
--- NOTE | 2017-12-04 18:50 | NUR ---
MS RN NOTE: SPOKE WITH GREGORIO FROM THE PHARMACY AND MADE HIM AWARE THAT THE PATIENT'S WOUND DRESSING WAS DONE ALREADY. AND THE ISODOSORB IS NOT YET AVAILABLE IN THE PATIENT'S CASSETTE. PER GREGORIO, LEAVE THE DRESSING CHANGE WITH IODOSORB TO THE PM SHIFT NURSE AND THEY WILL SEND THE IODOSORB MEDICATION.
--- NOTE | 2017-12-04 19:30 | NUR ---
RN MS OPENING NOTES RECEIVED PATIENT IN BED AWAKE. ALERT AND ORIENTED X4. BREATHING EVEN AND UNLABORED. ON ROOM AIR. NO SOB NOTED. LEFT UPPER ARM MIDLINE INTACT AND PATENT - INFUSING NS @75ML/HR. PATIENT NOTED WITH SUPRAPUBIC CATH - INTACT AND DRAINING WELL. CURRENTLY WITH NO COMPLAINTS OF PAIN OR DISCOMFORT. ALL OTHER NEEDS ATTENDED TO. CALL LIGHT WITHIN REACH. BED ON LOWEST LOCKED POSITION. WILL CONTINUE TO MONITOR.
--- NOTE | 2017-12-04 19:45 | NUR ---
MS RN NOTE: REPORT WAS GIVEN TO PM SHIFT NURSE FOR CONTINUITY OF CARE INCLUDING THE IODOSORB THAT THE PHARMACY NEEDED TO STOCK ON THE CASSETTE.
[2017-12-04 20:00] VITALS: BP 143/79
[2017-12-04] MEDS: LEVOFLOXACIN 500 MG /D5W 100ML 500 MG in PREMIX 1 EA IV SCH (20:44)
[2017-12-04] MEDS: CADEXOMER IODINE 40 GM TUBE TP SCH (20:44)
[2017-12-04] MEDS: ENOXAPARIN SODIUM 40 MG/0.4 ML DISP.SYRIN SQ SCH (20:45)
--- NOTE | 2017-12-04 21:29 | NUR ---
RN MS NOTES PATIENT COMPLAINED OF PAIN 9/10 ON LEFT LEG AND REQUESTED FOR DILAUDID. DILAUDID 2MG IV GIVEN - TOLERATED WELL.
[2017-12-05] MEDS: VANCOMYCIN 1.5 GM in IV D5W 500 ML IV SCH (00:29)
[2017-12-05] MEDS: HYDROMORPHONE INJ 2 MG/ML DISP.SYRIN IV PRN ×3 (00:36→10:48)
--- NOTE | 2017-12-05 00:36 | NUR ---
RN MS NOTES PATIENT COMPLAINED OF PAIN 9/10 ON LEFT LEG AND REQUESTED FOR DILAUDID. DILAUDID 2MG IV GIVEN - TOLERATED WELL.
--- NOTE | 2017-12-05 03:43 | NUR ---
RN MS NOTES PATIENT COMPLAINED OF PAIN 9/10 ON LEFT LEG AND REQUESTED FOR DILAUDID. DILAUDID 2MG IV GIVEN - TOLERATED WELL.
[2017-12-05 04:00] VITALS: BP 124/78
--- NOTE | 2017-12-05 06:45 | NUR ---
RN MS CLOSING NOTES PATIENT RESTING IN BED. ALERT AND ORIENTED X4. IN STABLE CONDITION. BREATHING EVEN AND UNLABORED. NO SOB NOTED - ON ROOM AIR. CURRENTLY WITH NO COMPLAINTS OF PAIN OR DISCOMFORT. LEFT UPPER ARM MIDLINE INTACT AND PATENT - INFUSING NS @ 75ML/HR. SUPRAPUBIC CATHETER INTACT AND DRAINING CLEAR YELLOW URINE. WOUND CARE DONE. ALL NEEDS ATTENDED TO. CALL LIGHT WITHIN REACH. BED ON LOWEST LOCKED POSITION. WILL ENDORSE TO ONCOMING NURSE FOR CONTINUITY OF CARE.
[2017-12-05 08:00] VITALS: BP 140/65
--- NOTE | 2017-12-05 08:00 | NUR ---
RN MS OPENING NOTES RECEIVED PATIENT IN BED AWAKE. ALERT AND ORIENTED X4. BREATHING EVEN AND UNLABORED. ON ROOM AIR.SATURATING WELL ON 97%. NO SHORTNESS OF BREATH NOTED. AFEBRILE AT 97.5. NO COMPLAINTS OF PAIN AT THIS TIME. LEFT UPPER ARM MIDLINE INTACT AND PATENT - INFUSING NS @75ML/HR. PATIENT WITH SUPRAPUBIC CATH - INTACT AND DRAINING WELL TO CLEAR YELLOW URINE. CURRENTLY WITH NO COMPLAINTS OF PAIN OR DISCOMFORT. CALL LIGHT WITHIN EASY REACH, BED LOCKED. WILL CONTINUE TO MONITOR.
[2017-12-05] MEDS: PROSOURCE / PROSTAT (PYXIS) 30 ML UDC GT SCH ×2 (09:21→12:55)
[2017-12-05] MEDS: MULTIVITAMINS,THERAGRAN 1 UDTAB TABLET PO SCH (09:21)
[2017-12-05] MEDS: ASCORBIC ACID 500 MG TABLET PO SCH (09:21)
[2017-12-05] MEDS: CADEXOMER IODINE 40 GM TUBE TP SCH (09:22)
[2017-12-05] MEDS: ZINC OXIDE 56.7 GM TUBE TP SCH (09:23)
[2017-12-05] MEDS: NYSTATIN TOP POWDER 15 GM BOTTLE TP SCH (09:23)
[2017-12-05] MEDS ORDERED: VANCOMYCIN 1.25 GM in IV D5W 500 ML IV SCH (10:00)
[2017-12-05 10:47] LABS: BASOPHILS % (AUTO) 0.6 % (0.0-2.0); EOSINOPHILS % (AUTO) 3.9 % (0.0-6.0); HEMATOCRIT 39 % (39-51); HEMOGLOBIN 12.3 g/dL (13.5-17.5); LYMPHOCYTES # (AUTO) 1.4 /CMM (0.8-4.8); LYMPHOCYTES % (AUTO) 22.2 % (20.0-44.0); MEAN CORPUSCULAR HEMOGLOBIN 27 PG (26.0-33.0); MEAN CORPUSCULAR HGB CONC 32 g/dl (31.0-36.0); MEAN CORPUSCULAR VOLUME 85 fL (80-96); MONOCYTES # (AUTO) 0.5 /CMM (0.1-1.30); MONOCYTES % (AUTO) 7.7 % (2.0-12.0); NEUTROPHILS # (AUTO) 4.2 /CMM (1.8-8.9); NEUTROPHILS % (AUTO) 65.6 % (43.0-81.0); PLATELET COUNT (AUTO) 365 /CMM (150-450); RDW COEFFICIENT OF VARIATION 17.4 (11.5-15.0); RED BLOOD CELL COUNT(AUTO) 4.57 MIL/uL (4.5-6.0); WHITE BLOOD COUNT (AUTO) 6.4 K/uL (4.3-11.0)
[2017-12-05 10:57] LABS: CALCIUM, SERUM 8.7 mg/dL (8.5-10.1); CREATININE 0.8 mg/dL (0.6-1.3); MAGNESIUM 1.7 mg/dL (1.8-2.4); PHOSPHORUS 3.6 mg/dL (2.5-4.9); POTASSIUM 3.7 mmol/L (3.5-5.1)
[2017-12-05] MEDS ORDERED: DOXY100T2 PO (12:18)
--- NOTE | 2017-12-05 12:30 | NUR ---
MS SANDRA NOERVIN NOTES SEEN AND EXAMINED BY AKILAH LOUIS NP. WITH ORDER FOR DISCHARGE. ORDER CARRIED OUT
--- NOTE | 2017-12-05 13:30 | NUR ---
MS NURSE NOTES PATIENT DISCHARGE TO HOME WITH HOME HEALTH. CLEANED AND PREPARED PRIOR TO DISCHARGED, WOUNDS CLEANED AND TREATMENT DONE. PHOTOS TAKEN AND FILED ON THE CHART. EXIT CARE DONE. QUESTIONS ADDRESSED APPROPRIATELY. DISCHARGE INSTRUCTION, MEDICATION INSTRUCTION AND PRESCRIPTION GIVEN TO PATIENT. BELONGING RELEASED WITH THE PATIENT.
[2017-12-05] MEDS ORDERED: LACTOBACILLUS RHAMNOSUS GG 1 EACH CAP.SPRINK PO SCH (17:00)
== END 2017-12-05 15:40 | disposition home health service (06) | DRG 853 ==
LOC: MEDSG1 21:19
PROVIDERS: ADMIT Nurse Practitioner Acute Care; ATTEND Nurse Practitioner Acute Care
PROC: 05H533Z Insertion of Infusion Device into Right Subclavian Vein, Percutaneous Approach (ICD-10-PCS; principal; 2017-12-03)
PROC: B546ZZA Ultrasonography of Right Subclavian Vein, Guidance (ICD-10-PCS; 2017-12-03)
PROC: 0JBR0ZZ Excision of Left Foot Subcutaneous Tissue and Fascia, Open Approach (ICD-10-PCS; 2017-12-05)
PROC: 0JBQ0ZZ Excision of Right Foot Subcutaneous Tissue and Fascia, Open Approach (ICD-10-PCS; 2017-12-05)
DX: A41.9 Sepsis, unspecified organism (principal); L89.894 Pressure ulcer of other site, stage 4; L89.513 Pressure ulcer of right ankle, stage 3; L89.523 Pressure ulcer of left ankle, stage 3; R53.2 Functional quadriplegia; L03.116 Cellulitis of left lower limb; N39.0 Urinary tract infection, site not specified; E44.0 Moderate protein-calorie malnutrition; D68.59 Other primary thrombophilia; E78.5 Hyperlipidemia, unspecified; K21.9 Gastro-esophageal reflux disease without esophagitis; D64.9 Anemia, unspecified; E66.9 Obesity, unspecified; Z68.38 Body mass index [BMI] 38.0-38.9, adult; F17.210 Nicotine dependence, cigarettes, uncomplicated; Z88.0 Allergy status to penicillin; L98.8 Other specified disorders of the skin and subcutaneous tissue; Z87.440 Personal history of urinary (tract) infections; R53.81 Other malaise; B96.89 Other specified bacterial agents as the cause of diseases classified elsewhere; E87.6 Hypokalemia; L89.621 Pressure ulcer of left heel, stage 1; E83.42 Hypomagnesemia; I10 Essential (primary) hypertension
CPT/HCPCS: 36415; 36569; 71045-TC; 80048-TC; 80053-TC; 80202-TC; 81000-TC; 82962-TC; 83605-TC; 83735-TC; 84100-TC; 84443-TC; 85025-TC; 85652-TC; 87040-TC; 87081-TC; 87086-TC; 87186-TC; A4216; A6248; A6402; A6403; J1170; J1650; J1956; J3370; J3475; J7030; J7040; J7060; Z7610

== ENCOUNTER 2018-01-02 13:29 | Inpatient (IN) | payer MEDICARE ==
[~2018-01-02] VITALS: Ht 190.5 cm; Wt 133.0 kg
[~2018-01-02 13:29] MED LIST changes: +DOXY100T2 PO; -LACT1CAP72 PO; -LEVO500T90 PO; -SULF1TAB48 PO; +ZOLP10TA2 PO
--- NOTE | 2018-01-02 14:00 | NUR ---
RN NOTE RECEIVED PATIENT DIRECT ADMIT PER DR GREGORIO YANG TO MED SURG. PATIENT WAS BROUGHT IN BY FRIEND 42 YEAR OLD MALE C/O ELEVATED TEMP. PATIENT IS ALERT AND ORIENTED X4, HE IS ABLE TO MAKE THINGS KNOWN AND VERBALIZED NEEDS. BREATHING EVEN AND UNLABORED WITH NO DISTRESS NOTED. REORIENTED PATIENT TO ROOM AND CALL LIGHT. WOULD PICTURES TAKEN AND DOCUMENTED IN CHART. ALL SAFETY MEASURES DONE. PATIENT ON BARIATRIC BED WITH AIR LOSS MATTRESS. BED LOW AND LOCKED POSITION. AWAITING FOR MIDLINE INSERTION NURSE. WILL CONTINUE TO MONITOR.
[2018-01-02 15:27] VITALS: BP 124/72
[2018-01-02] MEDS ORDERED: Z GUARD REMEDY 2 OZ OINT TP PRN (16:30)
[2018-01-02] MEDS ORDERED: ONDANSETRON HCL/PF 4 MG/2 ML VIAL IVP PRN (16:30)
--- NOTE | 2018-01-02 19:07 | NUR ---
RN NOTE PATIENT REMAINED STABLE THROUGHOUT SHIFT. NO ACUTE CHANGES OR DISTRESS NOTED. WILL ENDORSE TO NEXT SHIFT TO CONTINUE TO MONITOR CONTINUITY OF CARE.
[2018-01-02] MEDS: HYDROMORPHONE INJ 2 MG/ML DISP.SYRIN IV PRN (19:58)
[2018-01-02 20:00] VITALS: BP 134/67
--- NOTE | 2018-01-02 20:00 | NUR ---
RECEIVED BEDSIDE REPORT FROM AM NURSE. PATIENT IS A/OX4, ON RA WITH SPO2 OF 94%. MIDLINE NURSE AT BEDSIDE AT THIS TIME AND BLOOD DRAW WILL BE DONE AFTER MIDLINE PLACEMENT. PATIENT COMPLAINS OF PAIN 8/10 AND ASKED FOR PAIN MEDICATION. SUPRAPUBIC CATHETER IN PLACE . NO SOB NOTED AT THIS TIME. ALL SAFETY MEASURES ARE IMPLEMENTED, BED IN LOWEST, LOCKED POSITION, CALL LIGHT IN REACH. WILL CONT. TO MONITOR.
[2018-01-02 20:31] LABS: CALCIUM, SERUM 8.2 mg/dL (8.5-10.1); CREATININE 0.9 mg/dL (0.6-1.3); POTASSIUM 3.6 mmol/L (3.5-5.1)
[2018-01-02 20:34] LABS: MAGNESIUM 1.6 mg/dL (1.8-2.4); PHOSPHORUS 2.4 mg/dL (2.5-4.9)
[2018-01-02] MEDS: IV NS 0.9% 1,000 ML IV PRN (21:02)
[2018-01-02 22:28] LABS: BASOPHILS # (AUTO) 0.1 /CMM (0.0-0.2); BASOPHILS % (AUTO) 0.7 % (0.0-2.0); EOSINOPHILS % (AUTO) 2.3 % (0.0-6.0); HEMATOCRIT 35 % (39-51); HEMOGLOBIN 11.6 g/dL (13.5-17.5); LYMPHOCYTES # (AUTO) 1.2 /CMM (0.8-4.8); LYMPHOCYTES % (AUTO) 8.8 % (20.0-44.0); MEAN CORPUSCULAR HGB CONC 33 g/dl (31.0-36.0); MEAN CORPUSCULAR VOLUME 84 fL (80-96); MONOCYTES # (AUTO) 0.7 /CMM (0.1-1.30); MONOCYTES % (AUTO) 4.9 % (2.0-12.0); NEUTROPHILS # (AUTO) 11.4 /CMM (1.8-8.9); NEUTROPHILS % (AUTO) 83.3 % (43.0-81.0); PLATELET COUNT (AUTO) 295 /CMM (150-450); RDW COEFFICIENT OF VARIATION 15.7 (11.5-15.0); RED BLOOD CELL COUNT(AUTO) 4.17 MIL/uL (4.5-6.0); WHITE BLOOD COUNT (AUTO) 13.7 K/uL (4.3-11.0)
[2018-01-03] MEDS: HYDROMORPHONE INJ 2 MG/ML DISP.SYRIN IV PRN ×6 (00:14→20:24)
[2018-01-03 04:00] VITALS: BP 141/83
--- NOTE | 2018-01-03 06:42 | NUR ---
ÓSCAR RN NOTES PATIENT REMAINED STABLE THROUGHOUT MY SHIFT. NO ACUTE CHANGES OR DISTRESS NOTED DURING MY SHIFT. ALL SAFETY MEASURES ARE IMPLEMENTED, BED IN LOW, LOCKED POSITION, CALL LIGHT IN REACH. WILL ENDORSE REPORT TO AM SHIFT NURSE FOR CONTINUITY OF PATIENT CARE.
[2018-01-03 06:46] LABS: ALBUMIN 2.6 g/dL (3.4-5.0); BILIRUBIN,TOTAL 0.2 mg/dL (0.2-1.0); CALCIUM, SERUM 8.3 mg/dL (8.5-10.1); CREATININE 0.9 mg/dL (0.6-1.3); MAGNESIUM 1.7 mg/dL (1.8-2.4); PHOSPHORUS 2.8 mg/dL (2.5-4.9); POTASSIUM 3.4 mmol/L (3.5-5.1); TOTAL PROTEIN, SERUM 7.3 g/dL (6.4-8.2)
[2018-01-03 06:47] LABS: THYROID STIMULATING HORMONE 2.684 uIU/mL (0.358-3.74)
[2018-01-03 07:12] LABS: RED BLOOD CELL COUNT(AUTO) 4.19 MIL/uL (4.5-6.0)
[2018-01-03 07:13] LABS: BASOPHILS % (AUTO) 0.4 % (0.0-2.0); EOSINOPHILS % (AUTO) 3.5 % (0.0-6.0); HEMATOCRIT 35 % (39-51); HEMOGLOBIN 11.7 g/dL (13.5-17.5); LYMPHOCYTES % (AUTO) 15.6 % (20.0-44.0); MEAN CORPUSCULAR HGB CONC 33 g/dl (31.0-36.0); MEAN CORPUSCULAR VOLUME 84 fL (80-96); MONOCYTES % (AUTO) 8.8 % (2.0-12.0); NEUTROPHILS % (AUTO) 71.7 % (43.0-81.0); PLATELET COUNT (AUTO) 259 /CMM (150-450)
[2018-01-03 07:14] LABS: LYMPHOCYTES # (AUTO) 1.6 /CMM (0.8-4.8); MONOCYTES # (AUTO) 0.9 /CMM (0.1-1.30); NEUTROPHILS # (AUTO) 7.2 /CMM (1.8-8.9)
[2018-01-03 08:00] VITALS: BP 126/60
--- NOTE | 2018-01-03 08:00 | NUR ---
RN NOTES RECEIVED PATIENT IN BED, ALERT AND OREINTED X4. ABLE TO MAKE NEEDS KNOWN. ON ROOM AIR, NO SHORTNESS OF BREATH NOTED. AFEBRILE AT 97.3. LEFT UPPER MIDLINE IN PLACE: INTACT AND PATENT ON FLUSHING. WITH SUPRAPUBIC CATHETER IN PLACE DRAINING VIA GRAVITY. CALL LIGHT WITHIN EASY REACH. ENCOURAGED VERBALIZATION OF FEELINGS AND CONCERN. WILL CONTINUE TO MONITOR
[2018-01-03] MEDS ORDERED: POTASSIUM CHLORIDE 20 MEQ TAB.PRT.SR PO SCH (09:30)
[2018-01-03] MEDS: Magnesium 1GM/D5W 100ML PREMIX 100 ML IV SCH ×2 (11:03→13:00)
[2018-01-03 12:00] VITALS: BP 126/60
--- NOTE | 2018-01-03 12:00 | NUR ---
RN NOTES WOUND DEBRIDEMENT DONE BY DR. ROD. PATIENT ABLE TO TOLERATE PROCEDURE WELL
--- NOTE | 2018-01-03 13:00 | NUR ---
RN NOTES SEEN AND EXAMINED BY SUPERVISOR TUNNEL HEADING. WOUND ON BILATERAL FEET DEBRIDEMENT DONE
[2018-01-03] MEDS: COLISTIMETHATE SODIUM 100 MG in IV NS 0.9% 50 ML IV SCH (15:01)
[2018-01-03 16:00] VITALS: BP 120/75
[2018-01-03] MEDS: NEOMY SULF/BACITRAC ZN/POLY 15 GM TUBE TP SCH (18:00)
[2018-01-03] MEDS: HYDROGEL DRESSING 90 GM TUBE TP SCH (18:55)
--- NOTE | 2018-01-03 19:30 | NUR ---
RN NOTES ENDORSED FOR CONTINUITY OF CARE. NO ACUTE CHANGES WITHIN THE SHIFT. ALL NURSING NEEDS ATTENDED AND MET. CALL LIGHT WITHIN REACH. AFEBRILE. NO SHORTNESS OF BREATH. NO COMPLAINTS OF PAIN
--- NOTE | 2018-01-03 19:51 | NUR ---
RN INITIAL MS NOTES RECEIVED PATIENT IN BED, ALERT AND OREINTED X4. ABLE TO MAKE NEEDS KNOWN. ON ROOM AIR, NO SHORTNESS OF BREATH NOTED. AFEBRILE AT 98.3. LEFT UPPER MIDLINE IN PLACE: INTACT AND PATENT ON FLUSHING. WITH SUPRAPUBIC CATHETER IN PLACE DRAINING VIA GRAVITY. CALL LIGHT WITHIN EASY REACH. ATTENDED TO ALL NEEDS. WILL CONTINUE TO MONITOR
[2018-01-03 20:00] VITALS: BP 129/63
[2018-01-04] MEDS: HYDROMORPHONE INJ 2 MG/ML DISP.SYRIN IV PRN ×7 (00:44→23:52)
[2018-01-04] MEDS: COLISTIMETHATE SODIUM 100 MG in IV NS 0.9% 50 ML IV SCH ×2 (02:30→17:28)
[2018-01-04 04:00] VITALS: BP 122/76
[2018-01-04 06:38] LABS: POTASSIUM 3.7 mmol/L (3.5-5.1)
--- NOTE | 2018-01-04 06:51 | NUR ---
RN MS CLOSING NOTE PT AWAKE SEVERAL TIME AND OFFERED TO BE CHANGED, REFUSED D/T SUPRAPUBIC CATH NO BM, ONLY REQUESTED TO BE REPOSITIONED AND PAIN MEDICATION AROUND THE CLOCK, SO HE CAN SLEEP, NON COMPLIANT W/CARE, WILL ENDORSE TO AM SHIFT RN TO F/U W/BEHAVIOR. ALL NEEDS ATTENDED.
[2018-01-04 07:06] LABS: CALCIUM, SERUM 8.6 mg/dL (8.5-10.1); CREATININE 0.8 mg/dL (0.6-1.3); MAGNESIUM 1.8 mg/dL (1.8-2.4)
--- NOTE | 2018-01-04 07:13 | NUR ---
MS SANDRA OPENING NOTE RECEIVED PATIENT IN BED. SLEEPING, EASILY AROUSED WITH VERBAL STIMULI, ORIENTED X4, ON ROOM AIR, TOLERATING WELL. IN NO APPARENT DISTRESS OR DISCOMFORT AT THIS TIME. RESPIRATIONS EVEN AND UNLABORED. EDEMA ON UPPER EXTREMITIES BILATERALLY. PATIENT WITH PLASENCIA CATHETER, DRAINING CLEAR YELLOW URINE. LEFT UPPER ARM MIDLINE WITH FLUIDS RUNNING AT 75ML/HR. PATIENT REFUSED TO BE CLEANED ACCORDING TO NIGHT NURSE, KEPT COMFORTABLE, ALL NEEDS ATTENDED. SAFETY MEASURES IN PLACE, BED IN LOW LOCKED POSITION, SIDE RAILS UP X2, CALL LIGHT WITHIN EASY REACH, WILL CONTINUE TO MONITOR. Addendum: 01/04/18 at 1021 by JAVED DODGE RN SUPRAPUBIC CATHETER*
[2018-01-04 08:00] VITALS: BP 126/58
--- NOTE | 2018-01-04 08:04 | NUR ---
WOUND CARE CONSULT WOUND CARE RECEIVED CONSULT FOR EVALUATION. WOUND CARE WILL DEFER CONSULT AND ALL TREATMENT PLANS TO SURGICAL TEAM WHO ARE CURRENTLY FOLLOWING. PATIENT WITH IDA AT 15. ALL PRESSURE ULCER PREVENTION MEASURES NOTED TO BE IN PLACE AT THIS TIME. WILL SEE PRN.
[2018-01-04] MEDS: NEOMY SULF/BACITRAC ZN/POLY 15 GM TUBE TP SCH (09:00)
[2018-01-04] MEDS: CADEXOMER IODINE 40 GM TUBE TP SCH (09:42)
[2018-01-04] MEDS: HYDROGEL DRESSING 90 GM TUBE TP SCH (09:42)
[2018-01-04 12:00] VITALS: BP 126/58
[2018-01-04] MEDS: IV NS 0.9% 1,000 ML IV PRN (12:07)
[2018-01-04 16:00] VITALS: BP 131/64
--- NOTE | 2018-01-04 19:33 | NUR ---
MS RN CLOSING NOTE PATIENT IN BED. ALERT ORIENTED X4, ON ROOM AIR, TOLERATING WELL. IN NO APPARENT DISTRESS OR DISCOMFORT AT THIS TIME. RESPIRATIONS EVEN AND UNLABORED. EDEMA ON UPPER EXTREMITIES BILATERALLY. PATIENT WITH SUPRAPUBIC CATHETER, DRAINING CLEAR YELLOW URINE. LEFT UPPER ARM MIDLINE WITH FLUIDS RUNNING AT 75ML/HR. KEPT CLEAN AND COMFORTABLE, ALL NEEDS ATTENDED, ORDERS RENDERED, WOUND DRESSING CHANGES PERFORMED, TURNED AND REPOSITION Q2 HOURS. SAFETY MEASURES IN PLACE, BED IN LOW LOCKED POSITION, SIDE RAILS UP X2, CALL LIGHT WITHIN EASY REACH, WILL ENDORSE TO PM NURSE FOR SOM.
--- NOTE | 2018-01-04 19:57 | NUR ---
MS RN INITIAL NOTE RECEIVED PT IN BED. ALERT ORIENTED X4, ON ROOM AIR, TOLERATING WELL. IN NO APPARENT DISTRESS OR DISCOMFORT AT THIS TIME. RESPIRATIONS EVEN AND UNLABORED. EDEMA ON UPPER EXTREMITIES BILATERALLY. PATIENT WITH SUPRAPUBIC CATHETER, DRAINING CLEAR YELLOW URINE. LEFT UPPER ARM MIDLINE WITH FLUIDS RUNNING AT 75ML/HR. KEPT CLEAN AND COMFORTABLE, ALL NEEDS ATTENDED, ORDERS RENDERED, WOUND DRESSING CHANGES PERFORMED, TURNED AND REPOSITION Q2 HOURS. SAFETY MEASURES IN PLACE, BED IN LOW LOCKED POSITION, SIDE RAILS UP X2, CALL LIGHT WITHIN EASY
[2018-01-04 20:00] VITALS: BP 136/69
--- NOTE | 2018-01-04 23:52 | NUR ---
DILUADID 2MG VIAL ACCIDENTALLY TOSSED IN SHARP CONTAINER AFTER ASPIRATING MEDICATION, BEFORE VIAL IS SCANED. PT WITNESSED ACCIDENT AND NOTIFEID OF ERROR. PT AOX4.
[2018-01-05] MEDS: HYDROMORPHONE INJ 2 MG/ML DISP.SYRIN IV PRN ×6 (03:01→20:35)
[2018-01-05] MEDS: COLISTIMETHATE SODIUM 100 MG in IV NS 0.9% 50 ML IV SCH ×2 (03:02→14:28)
[2018-01-05 04:00] VITALS: BP 130/65
--- NOTE | 2018-01-05 06:28 | NUR ---
RN MS CLOSING NOTE PT AWAKE, CLEAN DRY, DILAUDID 2MG IV GIVEN X3, ALL NEEDS ATTENDED, CL W/R, REPOSITIONED QS WII ENDORSE TO AM SHIFT TO SOM.
[2018-01-05 08:00] VITALS: BP 126/68
[2018-01-05] MEDS: CADEXOMER IODINE 40 GM TUBE TP SCH (09:00)
[2018-01-05] MEDS: HYDROGEL DRESSING 90 GM TUBE TP SCH (09:00)
[2018-01-05] MEDS: NEOMY SULF/BACITRAC ZN/POLY 15 GM TUBE TP SCH (09:00)
[2018-01-05 12:00] VITALS: BP 123/75
[2018-01-05 12:28] LABS: BASOPHILS # (AUTO) 0.1 /CMM (0.0-0.2); BASOPHILS % (AUTO) 1.2 % (0.0-2.0); EOSINOPHILS % (AUTO) 5.4 % (0.0-6.0); HEMATOCRIT 38 % (39-51); HEMOGLOBIN 12.2 g/dL (13.5-17.5); LYMPHOCYTES # (AUTO) 1.6 /CMM (0.8-4.8); LYMPHOCYTES % (AUTO) 19.1 % (20.0-44.0); MEAN CORPUSCULAR HGB CONC 32 g/dl (31.0-36.0); MEAN CORPUSCULAR VOLUME 85 fL (80-96); MONOCYTES # (AUTO) 0.4 /CMM (0.1-1.30); MONOCYTES % (AUTO) 5.1 % (2.0-12.0); NEUTROPHILS # (AUTO) 5.9 /CMM (1.8-8.9); NEUTROPHILS % (AUTO) 69.2 % (43.0-81.0); PLATELET COUNT (AUTO) 383 /CMM (150-450); RDW COEFFICIENT OF VARIATION 16.6 (11.5-15.0); RED BLOOD CELL COUNT(AUTO) 4.48 MIL/uL (4.5-6.0); WHITE BLOOD COUNT (AUTO) 8.6 K/uL (4.3-11.0)
[2018-01-05 13:10] LABS: CALCIUM, SERUM 8.8 mg/dL (8.5-10.1); POTASSIUM 3.8 mmol/L (3.5-5.1)
--- NOTE | 2018-01-05 15:27 | NUR ---
patient aaox4 follow commands room air no sob non labored breathing abdomen soft non tender diet tolerated pt denied chest pain but generalized pain complained dilaudid 2mg every 3hrs ivp given per mar supurpubic catheter keep urine color yellow observed pt bed bound pt able to turn skin is multiple area dressing intact lt upper arm midline no blood return noted will continue monitor call light within reach
[2018-01-05 16:00] VITALS: BP 146/84
[2018-01-05 20:00] VITALS: BP 135/71
[2018-01-06] MEDS: HYDROMORPHONE INJ 2 MG/ML DISP.SYRIN IV PRN ×8 (00:28→22:03)
[2018-01-06] MEDS: COLISTIMETHATE SODIUM 100 MG in IV NS 0.9% 50 ML IV SCH ×2 (02:00→13:32)
[2018-01-06 04:00] VITALS: BP 44/83
[2018-01-06] MEDS: ACETAMINOPHEN 325 MG TABLET PO PRN (05:41)
--- NOTE | 2018-01-06 06:04 | NUR ---
TELE/RN C/O HEAD ACHE, TYLENOL 650 MG PO WAS GIVEN ORDERED, WILL MONITOR. MORNING CARE WAS DONE, TOTAL LINEN CHANGE RENDERED, REPOSITIONED TO COMFORT, ,MEDICATED PATIENT WITH DILAUDID NEEDED PER PATIENT'S REQUESTS. ALL NEEDS ATTENDED AT THIS TIME, WILL CONTINUE TO MONITOR.
[2018-01-06 08:00] VITALS: BP 113/68
[2018-01-06 08:27] VITALS: BP 113/68
[2018-01-06] MEDS: NEOMY SULF/BACITRAC ZN/POLY 15 GM TUBE TP SCH (09:00)
[2018-01-06] MEDS: CADEXOMER IODINE 40 GM TUBE TP SCH (10:32)
[2018-01-06] MEDS: HYDROGEL DRESSING 90 GM TUBE TP SCH (10:32)
[2018-01-06 12:42] LABS: APPEARANCE,URINE CLEAR (CLEAR); BILIRUBIN,URINE NEGATIVE (NEGATIVE); BLOOD, URINE 3+ Ery/uL (NEGATIVE); COLOR,URINE YELLOW (YELLOW); KETONES,URINE NEGATIVE (NEGATIVE); LEUKOCYTE ESTERASE ,URINE 3+ (NEGATIVE); NITRITE, URINE POSITIVE (NEGATIVE); PROTEIN,URINE 1+ mg/dl (NEGATIVE); UGLUCOSE NEGATIVE (NEGATIVE); UROBILINOGEN,URINE 0.2 EU/dL (0.2)
[2018-01-06 13:00] LABS: BACTERIA,URINE Many /HPF (None Seen)
[2018-01-06 13:01] LABS: SQUAMOUS EPITHELIAL CELL,UR Few /HPF (None Seen)
[2018-01-06 13:03] LABS: TRIPLE PHOSPHATE CRYSTAL,UR Few /HPF (None Seen); WBC,URINE 21-50 /HPF (0-3)
[2018-01-06 13:30] LABS: BASOPHILS # (AUTO) 0.2 /CMM (0.0-0.2); BASOPHILS % (AUTO) 1.5 % (0.0-2.0); EOSINOPHILS % (AUTO) 4.4 % (0.0-6.0); HEMATOCRIT 40 % (39-51); HEMOGLOBIN 12.6 g/dL (13.5-17.5); LYMPHOCYTES # (AUTO) 1.8 /CMM (0.8-4.8); LYMPHOCYTES % (AUTO) 17.6 % (20.0-44.0); MEAN CORPUSCULAR HGB CONC 32 g/dl (31.0-36.0); MEAN CORPUSCULAR VOLUME 85 fL (80-96); MONOCYTES # (AUTO) 0.7 /CMM (0.1-1.30); MONOCYTES % (AUTO) 6.4 % (2.0-12.0); NEUTROPHILS # (AUTO) 7.2 /CMM (1.8-8.9); NEUTROPHILS % (AUTO) 70.1 % (43.0-81.0); PLATELET COUNT (AUTO) 452 /CMM (150-450); RDW COEFFICIENT OF VARIATION 16.6 (11.5-15.0); RED BLOOD CELL COUNT(AUTO) 4.68 MIL/uL (4.5-6.0); WHITE BLOOD COUNT (AUTO) 10.2 K/uL (4.3-11.0)
[2018-01-06 13:38] LABS: CALCIUM, SERUM 9.2 mg/dL (8.5-10.1)
[2018-01-06 16:00] VITALS: BP 130/72
--- NOTE | 2018-01-06 16:17 | NUR ---
Wound care and repositioning at this time.
--- NOTE | 2018-01-06 19:42 | NUR ---
Handoff to night nurse, SANDRA Major. Dario Herbert RN
[2018-01-06 20:00] VITALS: BP 131/80
[2018-01-06] MEDS: IV NS 0.9% 1,000 ML IV PRN (20:22)
[2018-01-07] MEDS: HYDROMORPHONE INJ 2 MG/ML DISP.SYRIN IV PRN ×7 (01:06→20:45)
[2018-01-07] MEDS: COLISTIMETHATE SODIUM 100 MG in IV NS 0.9% 50 ML IV SCH ×2 (01:06→15:29)
[2018-01-07 04:00] VITALS: BP 138/73
[2018-01-07] MEDS: ACETAMINOPHEN 325 MG TABLET PO PRN (06:05)
[2018-01-07 06:41] LABS: BASOPHILS # (AUTO) 0.1 /CMM (0.0-0.2); BASOPHILS % (AUTO) 1.3 % (0.0-2.0); EOSINOPHILS % (AUTO) 4.9 % (0.0-6.0); HEMATOCRIT 38 % (39-51); HEMOGLOBIN 12.3 g/dL (13.5-17.5); LYMPHOCYTES % (AUTO) 17.8 % (20.0-44.0); MEAN CORPUSCULAR HGB CONC 32 g/dl (31.0-36.0); MEAN CORPUSCULAR VOLUME 85 fL (80-96); MONOCYTES # (AUTO) 0.7 /CMM (0.1-1.30); MONOCYTES % (AUTO) 6.4 % (2.0-12.0); NEUTROPHILS # (AUTO) 7.8 /CMM (1.8-8.9); NEUTROPHILS % (AUTO) 69.6 % (43.0-81.0); PLATELET COUNT (AUTO) 460 /CMM (150-450); RDW COEFFICIENT OF VARIATION 16.3 (11.5-15.0); WHITE BLOOD COUNT (AUTO) 11.3 K/uL (4.3-11.0)
[2018-01-07 06:59] LABS: CREATININE 0.8 mg/dL (0.6-1.3); POTASSIUM 4.1 mmol/L (3.5-5.1)
--- NOTE | 2018-01-07 07:30 | NUR ---
RN OPENING NOTES RECEIVED PATIENT IN BED RESTING, IN STABLE CONDITION, ABLE TO VERBALIZE NEEDS. NO ACUTE DISTRESS, NO SOB. COMPLAINTS OF PAIN 8/10 ON LEFT LEG, WILL ADMINISTER PAIN MEDS ORDERED. IV SITE INTACT AND PATENT. PLASENCIA IN PLACE DRAINING, CLEAR YELLOW URINE. KEPT PATIENT SAFE AND COMFORTABLE. TURNED AND REPOSITIONED PATIENT EVERY 2 HRS NEEDED. BED IN LOW/LOCKED POSITION, SIDERAILS UPX2, CALL LIGHT IN REACH. WILL CONTINUE TO MONITOR ACCORDINGLY Addendum: 01/07/18 at 1354 by ETHAN HENRIQUEZ CORRECTION: PATIENT HAS SUPRAPUBIC CATHETER NOT PLASENCIA
[2018-01-07 08:00] VITALS: BP 123/73
[2018-01-07] MEDS: CADEXOMER IODINE 40 GM TUBE TP SCH (09:15)
[2018-01-07] MEDS: HYDROGEL DRESSING 90 GM TUBE TP SCH (09:16)
[2018-01-07] MEDS: NEOMY SULF/BACITRAC ZN/POLY 15 GM TUBE TP SCH (09:22)
[2018-01-07] MEDS: IV NS 0.9% 1,000 ML IV PRN (10:54)
--- NOTE | 2018-01-07 14:15 | NUR ---
RN NOTES PATIENT REFUSED TURN AND REPOSITION. PER PATIENT, "NO, IM OK"
[2018-01-07 16:00] VITALS: BP 143/77
[2018-01-07] MEDS ORDERED: BISACODYL SUPP (10 MG) 10 MG/SUPP.RECT SUPP.RECT RC PRN (16:30)
--- NOTE | 2018-01-07 18:00 | NUR ---
RN NOTES PATIENT REFUSED TO BE CHANGED, CLEANED UP AND WOUND CARE. STATED "I WANT IT DONE TONIGHT". CHECKED WOUND DRESSING, C/D/I.
--- NOTE | 2018-01-07 19:42 | NUR ---
PATIENT IN STABLE CONDITION. ALL NEEDS ATTENDED AND PROVIDED. ALL DUE MEDICATIONS GIVEN ORDERED. KEPT PATIEN SAFE AND COMFORTABLE. BED IN LOW/LOCKED POSITION, SEMIFOWLERS, SIDERAILS UPX2, CALL LIGHT IN REACH. ENDORSED TO NIGHT RN FOR SOM.
[2018-01-07 20:00] VITALS: BP 112/74
--- NOTE | 2018-01-07 20:00 | NUR ---
ÓSCAR RN NOTES RECEIVED BEDSIDE REPORT FROM AM NURSE. PATIENT IS A/OX4, ON RA WITH SPO2 OF 98%. RIGHT HAND AC IV LINE IS INTACT, PATIENT WITH NS @75ML/HR. PATIENT COMPLAINS OF PAIN 8/ AND ASKED FOR PAIN MEDICATION. SUPRAPUBIC CATHETER IN PLACE . NO SOB NOTED AT THIS TIME. ALL SAFETY MEASURES ARE IMPLEMENTED, BED IN LOWEST, LOCKED POSITION, CALL LIGHT IN REACH. WILL CONT. TO MONITOR.
[2018-01-08] MEDS: HYDROMORPHONE INJ 2 MG/ML DISP.SYRIN IV PRN ×8 (00:29→22:20)
[2018-01-08] MEDS: ACETAMINOPHEN 325 MG TABLET PO PRN (01:18)
[2018-01-08] MEDS: COLISTIMETHATE SODIUM 100 MG in IV NS 0.9% 50 ML IV SCH ×2 (02:24→14:19)
[2018-01-08] MEDS: IV NS 0.9% 1,000 ML IV PRN ×2 (02:25→15:26)
[2018-01-08 04:00] VITALS: BP 121/77
--- NOTE | 2018-01-08 06:30 | NUR ---
RN CLOSING NOTES PATIENT IS IN STABLE CONDITION, A/OX4, ON RA WITH SPO2 OF 97%. RIGHT HAND AC IV LINE IS INTACT, PATIENT WITH NS @75ML/HR. PATIENT COMPLAINS OF PAIN 11/16 AND ASKED FOR PAIN MEDICATION AT 0640. SUPRAPUBIC CATHETER IN PLACE . NO SOB NOTED AT THIS TIME. ALL SAFETY MEASURES ARE IMPLEMENTED, BED IN LOWEST, LOCKED POSITION, CALL LIGHT IN REACH. WOUND CARE PROVIDED ORDERED. WILL ENDORSE PATIENT REPORT FOR HOBBIES AND CRAFTS SALES REPRESENTATIVE.
[2018-01-08 08:00] VITALS: BP 126/75
--- NOTE | 2018-01-08 08:00 | NUR ---
MS RN OPENING NOTES RECEIVED PATIENT IN BED SLEEPING BUT AROUSABLE, IN STABLE CONDITION, ABLE TO VERBALIZE NEEDS. NO ACUTE DISTRESS, NO SOB.IV SITE INTACT AND PATENT. DOESN'T WANT TO BE BOTHERED.WITH SUPRAPUBIC CATH IN PLACE DRAINING, CLEAR YELLOW URINE. KEPT COMFORTABLE. TURNED AND REPOSITIONED PATIENT EVERY 2 HRS NEEDED. BED IN LOW/LOCKED POSITION, SIDERAILS UPX2, CALL LIGHT IN REACH. WILL CONTINUE TO MONITOR ACCORDINGLY
[2018-01-08] MEDS: HYDROGEL DRESSING 90 GM TUBE TP SCH (09:38)
[2018-01-08] MEDS: NEOMY SULF/BACITRAC ZN/POLY 15 GM TUBE TP SCH (09:39)
[2018-01-08] MEDS: CADEXOMER IODINE 40 GM TUBE TP SCH (11:10)
[2018-01-08 13:12] LABS: BASOPHILS # (AUTO) 0.1 /CMM (0.0-0.2); BASOPHILS % (AUTO) 0.6 % (0.0-2.0); EOSINOPHILS % (AUTO) 4.9 % (0.0-6.0); HEMATOCRIT 40 % (39-51); HEMOGLOBIN 12.9 g/dL (13.5-17.5); LYMPHOCYTES # (AUTO) 1.9 /CMM (0.8-4.8); LYMPHOCYTES % (AUTO) 18.1 % (20.0-44.0); MEAN CORPUSCULAR HGB CONC 32 g/dl (31.0-36.0); MEAN CORPUSCULAR VOLUME 84 fL (80-96); MONOCYTES # (AUTO) 0.1 /CMM (0.1-1.30); MONOCYTES % (AUTO) 0.9 % (2.0-12.0); NEUTROPHILS % (AUTO) 75.5 % (43.0-81.0); PLATELET COUNT (AUTO) 492 /CMM (150-450); RDW COEFFICIENT OF VARIATION 16.2 (11.5-15.0); RED BLOOD CELL COUNT(AUTO) 4.76 MIL/uL (4.5-6.0); WHITE BLOOD COUNT (AUTO) 10.6 K/uL (4.3-11.0)
[2018-01-08 13:26] LABS: CALCIUM, SERUM 9.2 mg/dL (8.5-10.1); CREATININE 0.7 mg/dL (0.6-1.3)
[2018-01-08 15:57] VITALS: BP 131/88
[2018-01-08 16:00] VITALS: BP 131/88
--- NOTE | 2018-01-08 18:30 | NUR ---
PT RESTING IN BED WITH NO C/O DISTRESS WITH PAIN MGT PRN EFFECTIVE.FRIEND AT BEDSIDE.CALL LIGHT PLACED WITHIN REACH.
[2018-01-08] MEDS ORDERED: FEE PK DOSING 1 MIN EA MC ONE (18:43)
[2018-01-08 20:00] VITALS: BP 118/81
[2018-01-08] MEDS ORDERED: GENTAMICIN IV ONE (20:00)
[2018-01-08] MEDS ORDERED: D5W IV ONE (20:00)
--- NOTE | 2018-01-08 20:00 | NUR ---
ÓSCAR RN NOTES RECEIVED BEDSIDE REPORT FROM AM NURSE. PATIENT IS A/OX4, ON RA WITH SPO2 OF 95%. RIGHT HAND AC IV LINE IS INTACT, PATIENT WITH NS @75ML/HR. SUPRAPUBIC CATHETER IN PLACE . NO SOB NOTED AT THIS TIME. ALL SAFETY MEASURES ARE IMPLEMENTED, BED IN LOWEST, LOCKED POSITION, CALL LIGHT IN REACH. WILL CONT. TO MONITOR.
[2018-01-09] MEDS: HYDROMORPHONE INJ 2 MG/ML DISP.SYRIN IV PRN ×5 (03:32→20:58)
[2018-01-09 04:00] VITALS: BP 117/67
[2018-01-09 08:00] VITALS: BP 125/68
[2018-01-09] MEDS: HYDROGEL DRESSING 90 GM TUBE TP SCH (08:40)
[2018-01-09] MEDS: NEOMY SULF/BACITRAC ZN/POLY 15 GM TUBE TP SCH (08:40)
[2018-01-09] MEDS: CADEXOMER IODINE 40 GM TUBE TP SCH (08:41)
[2018-01-09 09:40] LABS: BASOPHILS # (AUTO) 0.1 /CMM (0.0-0.2); EOSINOPHILS % (AUTO) 5.3 % (0.0-6.0); HEMATOCRIT 39 % (39-51); HEMOGLOBIN 12.4 g/dL (13.5-17.5); LYMPHOCYTES # (AUTO) 1.7 /CMM (0.8-4.8); LYMPHOCYTES % (AUTO) 17.6 % (20.0-44.0); MEAN CORPUSCULAR HGB CONC 32 g/dl (31.0-36.0); MEAN CORPUSCULAR VOLUME 84 fL (80-96); MONOCYTES # (AUTO) 0.3 /CMM (0.1-1.30); MONOCYTES % (AUTO) 2.6 % (2.0-12.0); NEUTROPHILS % (AUTO) 73.5 % (43.0-81.0); PLATELET COUNT (AUTO) 496 /CMM (150-450); RDW COEFFICIENT OF VARIATION 16.4 (11.5-15.0); RED BLOOD CELL COUNT(AUTO) 4.58 MIL/uL (4.5-6.0); WHITE BLOOD COUNT (AUTO) 9.5 K/uL (4.3-11.0)
[2018-01-09 09:51] LABS: CALCIUM, SERUM 9.1 mg/dL (8.5-10.1); CREATININE 0.8 mg/dL (0.6-1.3); POTASSIUM 4.4 mmol/L (3.5-5.1)
[2018-01-09 12:00] VITALS: BP 125/68
--- NOTE | 2018-01-09 16:47 | NUR ---
nursing notes RECEIVED PATIENT IN BED RESTING, IN STABLE CONDITION, ABLE TO VERBALIZE NEEDS. NO ACUTE DISTRESS, NO SOB. COMPLAINTS OF PAIN 8/10 ON LEFT LEG, WILL ADMINISTER PAIN MEDS ORDERED. IV SITE INTACT AND PATENT. PLASENCIA IN PLACE DRAINING, CLEAR YELLOW URINE. KEPT PATIENT SAFE AND COMFORTABLE. TURNED AND REPOSITIONED PATIENT EVERY 2 HRS NEEDED. BED IN LOW/LOCKED POSITION, SIDERAILS UPX2, CALL LIGHT IN REACH. WILL CONTINUE TO MONITOR . PATIENT SEEMS TO BE DOING BETTER WHEN PAIN IS MANAGED WITH MEDICATIONS EVERY 3 HOURS AROUND THE CLOCK ORDERED. WILL ENDORSE TO NEXT SHIFT NURSE AT END OF SHIFT.
[2018-01-09 20:00] VITALS: BP 148/79
--- NOTE | 2018-01-09 20:00 | NUR ---
ÓSCAR RN NOTES RECEIVED BEDSIDE REPORT FROM AM NURSE. PATIENT IS A/OX4, ON RA WITH SPO2 OF 94%. RIGHT HAND AC IV LINE IS INTACT, PATIENT WITH NS @75ML/HR. SUPRAPUBIC CATHETER IN PLACE . NO SOB NOTED AT THIS TIME. PATIENT COMPLAINS OF PAIN 8/10 LEFT LEG. ALL SAFETY MEASURES ARE IMPLEMENTED, BED IN LOWEST, LOCKED POSITION, CALL LIGHT IN REACH. WILL CONT. TO MONITOR.
[2018-01-09] MEDS: D5W IV SCH (20:57)
[2018-01-09] MEDS: GENTAMICIN IV SCH (20:57)
[2018-01-10] MEDS: HYDROMORPHONE INJ 2 MG/ML DISP.SYRIN IV PRN ×5 (01:00→21:35)
[2018-01-10 04:00] VITALS: BP 127/70
--- NOTE | 2018-01-10 07:00 | NUR ---
RN CLOSING NOTES PATIENT IS IN STABLE CONDITION, A/OX4, ON RA WITH SPO2 OF 96%. RIGHT HAND AC IV LINE IS INTACT, PATIENT WITH NS @75ML/HR. SUPRAPUBIC CATHETER IN PLACE . NO SOB NOTED AT THIS TIME. ALL SAFETY MEASURES ARE IMPLEMENTED, BED IN LOWEST, LOCKED POSITION, CALL LIGHT IN REACH.WILL ENDORSE PATIENT REPORT FOR IMPREGNATOR OPERATOR.
[2018-01-10 08:00] VITALS: BP 133/83
[2018-01-10] MEDS: NEOMY SULF/BACITRAC ZN/POLY 15 GM TUBE TP SCH (09:00)
[2018-01-10] MEDS: CADEXOMER IODINE 40 GM TUBE TP SCH (09:00)
[2018-01-10] MEDS: HYDROGEL DRESSING 90 GM TUBE TP SCH (09:00)
[2018-01-10 12:00] VITALS: BP 136/83
[2018-01-10 12:21] LABS: BASOPHILS % (AUTO) 0.4 % (0.0-2.0); EOSINOPHILS % (AUTO) 3.6 % (0.0-6.0); HEMATOCRIT 40 % (39-51); HEMOGLOBIN 12.5 g/dL (13.5-17.5); LYMPHOCYTES # (AUTO) 1.5 /CMM (0.8-4.8); LYMPHOCYTES % (AUTO) 17.8 % (20.0-44.0); MEAN CORPUSCULAR HGB CONC 32 g/dl (31.0-36.0); MEAN CORPUSCULAR VOLUME 85 fL (80-96); MONOCYTES # (AUTO) 0.3 /CMM (0.1-1.30); NEUTROPHILS # (AUTO) 6.4 /CMM (1.8-8.9); NEUTROPHILS % (AUTO) 75.2 % (43.0-81.0); PLATELET COUNT (AUTO) 547 /CMM (150-450); RDW COEFFICIENT OF VARIATION 16.1 (11.5-15.0); WHITE BLOOD COUNT (AUTO) 8.5 K/uL (4.3-11.0)
[2018-01-10 12:36] LABS: CALCIUM, SERUM 9.1 mg/dL (8.5-10.1); POTASSIUM 3.8 mmol/L (3.5-5.1)
[2018-01-10 16:00] VITALS: BP 131/71
--- NOTE | 2018-01-10 19:31 | NUR ---
MS RN NOTES RECEIVED PT ON BED. A/OX 4 OMN ROOM AIR SATURATING WELL. NO RESPIRATORY DISTRESS NOTED. SUPRAPUBIC CATH DRAINING YELLOW URINE, IV ACCESS ON RIGHT AC NS @ 75CC/HR RUNNING WELL . HEAD OF BED ELEVATED. SIDE RAILS UP. CALL LIGHT WITHIN REACH. BED ALARM ON. WILL CONTINUE TO MONITOR PT CLOSELY.
[2018-01-10 20:00] VITALS: BP 137/69
[2018-01-10] MEDS: D5W IV SCH (20:08)
[2018-01-10] MEDS: GENTAMICIN IV SCH (20:08)
[2018-01-10] MEDS: IV NS 0.9% 1,000 ML IV PRN (21:38)
[2018-01-11] MEDS: HYDROMORPHONE INJ 2 MG/ML DISP.SYRIN IV PRN ×6 (00:49→20:18)
[2018-01-11 04:00] VITALS: BP 133/74
--- NOTE | 2018-01-11 06:53 | NUR ---
MS RN NOTES NO ACUTE CHANGES NOTED DURING THE SHIFT. PROVIDED COMFORT AND SAFETY. WILL ENDORSE TO THE AM NURSE FOR CONTINUITY OF CARE.
--- NOTE | 2018-01-11 07:47 | NUR ---
MS/RN Opening note Patient received from sales market leader. A/O X4, appears comfortable, in no distress at this time. Call light within reach, bed in low setting, brakes locked. Will continue to monitor and ensure safety.
[2018-01-11 08:16] LABS: BASOPHILS # (AUTO) 0.1 /CMM (0.0-0.2); BASOPHILS % (AUTO) 0.8 % (0.0-2.0); EOSINOPHILS % (AUTO) 4.2 % (0.0-6.0); HEMATOCRIT 40 % (39-51); HEMOGLOBIN 12.6 g/dL (13.5-17.5); LYMPHOCYTES # (AUTO) 2.1 /CMM (0.8-4.8); LYMPHOCYTES % (AUTO) 25.2 % (20.0-44.0); MEAN CORPUSCULAR HGB CONC 32 g/dl (31.0-36.0); MEAN CORPUSCULAR VOLUME 84 fL (80-96); MONOCYTES # (AUTO) 0.6 /CMM (0.1-1.30); MONOCYTES % (AUTO) 7.2 % (2.0-12.0); NEUTROPHILS # (AUTO) 5.2 /CMM (1.8-8.9); NEUTROPHILS % (AUTO) 62.6 % (43.0-81.0); PLATELET COUNT (AUTO) 517 /CMM (150-450); RDW COEFFICIENT OF VARIATION 16.5 (11.5-15.0); RED BLOOD CELL COUNT(AUTO) 4.69 MIL/uL (4.5-6.0); WHITE BLOOD COUNT (AUTO) 8.3 K/uL (4.3-11.0)
[2018-01-11 08:24] LABS: CALCIUM, SERUM 8.9 mg/dL (8.5-10.1); POTASSIUM 3.9 mmol/L (3.5-5.1)
--- NOTE | 2018-01-11 09:00 | NUR ---
MS/RN Medications Morning medications administered as ordered.
[2018-01-11 09:29] VITALS: BP 127/82
[2018-01-11] MEDS: HYDROGEL DRESSING 90 GM TUBE TP SCH (09:32)
[2018-01-11] MEDS: NEOMY SULF/BACITRAC ZN/POLY 15 GM TUBE TP SCH (09:32)
[2018-01-11] MEDS: CADEXOMER IODINE 40 GM TUBE TP SCH (09:32)
--- NOTE | 2018-01-11 12:00 | NUR ---
MS/RN S/B Nick Hardy ABRASIVE BAND WINDER Seen by BHARGAVI urbina to be changed to oral, to continue with current IVAB.
[2018-01-11] MEDS: IV NS 0.9% 1,000 ML IV PRN (13:06)
--- NOTE | 2018-01-11 14:27 | NUR ---
MS/RN Dressings All dressings changed as per order.
[2018-01-11 17:29] VITALS: BP 145/83
--- NOTE | 2018-01-11 18:12 | NUR ---
MS/RN End note Remains in stable condition, no changes to care. Dressings dry and intact, pain level 4/10 at this time. All needs attended, will endorse to overnight stocker.
--- NOTE | 2018-01-11 19:46 | NUR ---
MS RN NOTES RECEIVED PT ON BED. ON ROOM AIR SATURATING WELL. NO RESPIRATORY DISTRESS NOTED. ON SUPRAPUBIC CATH DRAINING YELLOW URINE. IV ACCESS ON RAC NS @75CC/HR PATNET AND INTACT. NO SIGN ON INFILTRATION OR BLEEDING. HEAD OF BED ELEVATED. SIDE RAILS UP. CALL LIGHT WITHIN REACH. BED ALARM ON. WILL CONTINUE TO MONITOR PT CLOSELY.
[2018-01-11 20:00] VITALS: BP 133/79
[2018-01-11] MEDS: GENTAMICIN IV SCH (20:17)
[2018-01-11] MEDS: D5W IV SCH (20:17)
[2018-01-11 22:00] VITALS: BP 133/79
[2018-01-12] VITALS: BP 101/42
[2018-01-12] MEDS: HYDROMORPHONE INJ 2 MG/ML DISP.SYRIN IV PRN ×2 (01:33→10:57)
--- NOTE | 2018-01-12 01:49 | NUR ---
MS RN NOTES EXPLAINED PT THE RISK OF DILAUDID IV. PT STILL WANTS THE IV DILAUDID. WILL CONTINUE TO MONITOR PT CLOSELY.
[2018-01-12] MEDS: HYDROMORPHONE HCL 2 MG TABLET PO PRN ×3 (03:45→20:59)
[2018-01-12 04:00] VITALS: BP 125/60
--- NOTE | 2018-01-12 06:44 | NUR ---
MS RN NOTES NO ACUTE CHANGES NOTED DURING THE SHIFT. PROVIDED COMFORT AND SAFETY. DUE MEDS GIVEN. WILL ENDORSE TO THE AM NURSE FOR CONTINUITY OF CARE.
--- NOTE | 2018-01-12 07:20 | NUR ---
RN INITIAL NOTES RECEIVED REPORT FROM PM NURSE.PT ON BED. ON ROOM AIR . NO RESPIRATORY DISTRESS NOTED. ON SUPRAPUBIC CATH DRAINING YELLOW URINE. IV ACCESS ON RAC NS @75CC/HR PATENT AND INTACT. NO SIGN ON INFILTRATION OR BLEEDING. HEAD OF BED ELEVATED. SIDE RAILS UP. CALL LIGHT WITHIN REACH. BED ALARM ON. WILL CONTINUE TO MONITOR .
[2018-01-12 08:00] VITALS: BP_SYST 135; BP_DIAS 83; BP_DIAS 85
[2018-01-12] MEDS: HYDROGEL DRESSING 90 GM TUBE TP SCH (09:18)
[2018-01-12] MEDS: CADEXOMER IODINE 40 GM TUBE TP SCH (09:18)
[2018-01-12] MEDS: NEOMY SULF/BACITRAC ZN/POLY 15 GM TUBE TP SCH (09:19)
--- NOTE | 2018-01-12 10:30 | NUR ---
MS RN NOTES SEEN BY CLINICAL DATA PROGRAMMER LUCY UPDATED PATIENT CONDITION.REQUESTING FOR ANTIDIARRHEA PILL,C/O ABDOMINAL CRAMPING.BUT PATIENT HAS NO DIARRHOEA.STOOL IS FORMED.STOOL FOR C-DIFF IF PATIENT HAS DIARRHOEA.PATIENT MADE AWARE.
[2018-01-12 10:54] LABS: CALCIUM, SERUM 8.8 mg/dL (8.5-10.1); CREATININE 0.9 mg/dL (0.6-1.3); POTASSIUM 3.8 mmol/L (3.5-5.1)
[2018-01-12 16:00] VITALS: BP 147/82
[2018-01-12] MEDS: ACETAMINOPHEN 325 MG TABLET PO PRN (16:34)
--- NOTE | 2018-01-12 18:06 | NUR ---
RN NOTES PATIENT REFUSED TURN AND REPOSITION AND DRESSING CHANGE.EXPLAINED RISK AND BENEFIT STILL WANT TO BE ON HIS BACK.
[2018-01-12] MEDS: IV NS 0.9% 1,000 ML IV PRN (18:16)
--- NOTE | 2018-01-12 19:00 | NUR ---
MS RN OPENING NOTE RECEIVE PATIENT AWAKE IN BED, A/O X 3, NO SOB OR DISTRESS NOTED, CALL LIGHT WITHIN REACH. SAFETY MEASURES IMPLEMENTED. WILL CONTINUE TO MONITOR THROUGHOUT SHIFT.
--- NOTE | 2018-01-12 19:14 | NUR ---
MS RN CLOSING NOTES PT ON BED. ON ROOM AIR . NO RESPIRATORY DISTRESS NOTED. ON SUPRAPUBIC CATH DRAINING YELLOW URINE. IV ACCESS ON RAC NS @75CC/HR PATENT AND INTACT. NO SIGN ON INFILTRATION OR BLEEDING. HEAD OF BED ELEVATED. SIDE RAILS UP. CALL LIGHT WITHIN REACH. BED ALARM ON. SEEN BY DAMIEN MADE AWARE PATIENT HAS LOW GARDE FEVER.GOT NEW ORDERS.ENDORSED TO PM NURSE FOR SOM.
[2018-01-12 20:00] VITALS: BP 132/77
[2018-01-12] MEDS ORDERED: D5W IV SCH (20:00)
[2018-01-12] MEDS ORDERED: GENTAMICIN IV SCH (20:00)
--- NOTE | 2018-01-12 23:07 | NUR ---
Ms rn notes pt wants to removed IV midline despite explaining risks and benefits pt stated he doesnt need it anymore because he's going home tomorrow and he's drinking enough fluids. educated pt to stay hydrated verbalized understanding. removed IV midline with tip intact tolerated procedure well. CN made aware and hospitalist. Addendum: 01/13/18 at 0015 by CHANI OGLESBY RN pt refused IVF NS fluids despite explaining risks and benefits
[2018-01-13] MEDS: HYDROMORPHONE HCL 2 MG TABLET PO PRN ×3 (03:57→14:03)
[2018-01-13 04:00] VITALS: BP 134/72
--- NOTE | 2018-01-13 06:16 | NUR ---
MS RN CLOSING NOTES ASLEEP AND EASILY AWAKEN, STABLE, TOLERATING ROOM AIR 96%. NOT IN DISTRESS. RESPIRATION EVEN AND UNLABORED. KEPT CLEAN AND DRY AND COMFORTABLE, ALL NURSING CARE RENDERED. NEEDS ATTENDED AND ANTICIPATED. REPOSITION EVERY 2 HOURS. GOOD SKIN CARE. TREATMENT ORDERED TO THE WOUND. ON LOW BED AT ALL TIMES TO ENSURE SAFETY. SAFE HAZARD FREE ENVIRONMENT PROVIDED. CALL LIGHT WITHIN EASY TO REACH. WILL ENDORSE NEXT SHIFT CONTINUITY OF CARE.
[2018-01-13 08:00] VITALS: BP 117/75
[2018-01-13] MEDS: NEOMY SULF/BACITRAC ZN/POLY 15 GM TUBE TP SCH (10:39)
[2018-01-13] MEDS: HYDROGEL DRESSING 90 GM TUBE TP SCH (10:39)
[2018-01-13] MEDS: CADEXOMER IODINE 40 GM TUBE TP SCH (10:39)
[2018-01-13] MEDS ORDERED: DIPHENOXYLATE HCL/ATROP SULF 1 UDTAB TABLET PO PRN (14:00)
[2018-01-13] MEDS ORDERED: DIPH1TAB28 PO (14:07)
[2018-01-13] MEDS ORDERED: METR500T4 PO (14:07)
--- NOTE | 2018-01-13 15:19 | NUR ---
PATIENT REFUSED TO HAVE HIS BLOOD DRAW (CBC AND BMP) TODAY. BHARGAVI TRUJILLO WAS INFORMED. PATIENT WAS GETTING DISCHARGED TODAY.
--- NOTE | 2018-01-13 15:25 | NUR ---
PATIENT WAS OFFERED WITH INFLUENZA VACCINE AND HE AGREED TO RECEIVE IT. BHARGAVI TRUJILLO WAS MADE AWARE AND GAVE AN ORDER FOR THE INFLUENZA VACCINE. NOTED AND CARRIED OUT. PRIMARY NURSE ERASTO WAS MADE AWARE.
--- NOTE | 2018-01-13 16:00 | NUR ---
RN NOTE PT DISCHARGED HOME WITH FRIEND RANJANA IN STABLE CONDITION ON HIS OWN WHEEL CHAIR, PICTURES TAKEN AND WOUND CARE DONE, ID BAND REMOVED, DISCHARGE INSTRUCTIONS PROVIDED , EXIT CARE DONE, TEACHING DONE TO PT, HE VERBALIZED UNDERSTANDING, FLU SHOT GIVEN, BELONGINGS GIVEN TO PT, BELONGINGS LIST SIGNED, PAPER SIGNED, PRESCRIPTION GIVEN TO PT.
== END 2018-01-13 16:00 | disposition home health service (06) | DRG 570 ==
LOC: MEDSG1 13:29
PROVIDERS: ADMIT Nurse Practitioner Acute Care; ATTEND Nurse Practitioner Acute Care
PROC: 05H633Z Insertion of Infusion Device into Left Subclavian Vein, Percutaneous Approach (ICD-10-PCS; principal; 2018-01-02)
PROC: B547ZZA Ultrasonography of Left Subclavian Vein, Guidance (ICD-10-PCS; 2018-01-02)
PROC: 0JBR0ZZ Excision of Left Foot Subcutaneous Tissue and Fascia, Open Approach (ICD-10-PCS; 2018-01-03)
PROC: 0JBQ0ZZ Excision of Right Foot Subcutaneous Tissue and Fascia, Open Approach (ICD-10-PCS; 2018-01-03)
PROC: 0JB90ZZ Excision of Buttock Subcutaneous Tissue and Fascia, Open Approach (ICD-10-PCS; 2018-01-03)
PROC: 0JBP0ZZ Excision of Left Lower Leg Subcutaneous Tissue and Fascia, Open Approach (ICD-10-PCS; 2018-01-03)
PROC: 0JBC0ZZ Excision of Pelvic Region Subcutaneous Tissue and Fascia, Open Approach (ICD-10-PCS; 2018-01-03)
DX: L89.623 Pressure ulcer of left heel, stage 3 (principal); A41.9 Sepsis, unspecified organism; G93.41 Metabolic encephalopathy; E44.0 Moderate protein-calorie malnutrition; N39.0 Urinary tract infection, site not specified; L03.116 Cellulitis of left lower limb; E87.1 Hypo-osmolality and hyponatremia; G82.20 Paraplegia, unspecified; L89.893 Pressure ulcer of other site, stage 3; L89.324 Pressure ulcer of left buttock, stage 4; L89.523 Pressure ulcer of left ankle, stage 3; L89.513 Pressure ulcer of right ankle, stage 3; E78.5 Hyperlipidemia, unspecified; E83.51 Hypocalcemia; E87.6 Hypokalemia; S80.212A Abrasion, left knee, initial encounter; K21.9 Gastro-esophageal reflux disease without esophagitis; B96.89 Other specified bacterial agents as the cause of diseases classified elsewhere; E66.9 Obesity, unspecified; D63.8 Anemia in other chronic diseases classified elsewhere; E11.9 Type 2 diabetes mellitus without complications; E83.42 Hypomagnesemia; I10 Essential (primary) hypertension; G89.29 Other chronic pain; F17.200 Nicotine dependence, unspecified, uncomplicated; Z79.899 Other long term (current) drug therapy; Z99.3 Dependence on wheelchair; Z93.59 Other cystostomy status; Z93.3 Colostomy status; Z87.440 Personal history of urinary (tract) infections; Z86.14 Personal history of Methicillin resistant Staphylococcus aureus infection; Z86.718 Personal history of other venous thrombosis and embolism; S82.202D Unspecified fracture of shaft of left tibia, subsequent encounter for closed fracture with routine healing; X58.XXXD Exposure to other specified factors, subsequent encounter; N31.9 Neuromuscular dysfunction of bladder, unspecified; S30.813A Abrasion of scrotum and testes, initial encounter; X58.XXXA Exposure to other specified factors, initial encounter; Z88.1 Allergy status to other antibiotic agents; Z88.0 Allergy status to penicillin; E86.1 Hypovolemia; D47.3 Essential (hemorrhagic) thrombocythemia; Z68.36 Body mass index [BMI] 36.0-36.9, adult
CPT/HCPCS: 36415; 71045-TC; 80048-TC; 80053-TC; 80061-TC; 80170-TC; 81000-TC; 83540-TC; 83735-TC; 84100-TC; 84443-TC; 85025-TC; 85652-TC; 87040-TC; 87070-TC; 87081-TC; 87086-TC; 87186-TC; 87400; A4216; A4217; A6248; A6253; A6402; A6403; J0770; J1170; J1580; J3475; J3490; J7030; J7060; Q2036; Z7610

== ENCOUNTER 2018-03-20 19:11 | Inpatient (IN) | payer MEDICARE ==
[~2018-03-20] VITALS: Ht 190.5 cm; Wt 120.2 kg
[~2018-03-20 19:11] MED LIST changes: +DIPH1TAB28 PO; -DOXY100T2 PO; +[UNRECOGNIZED DRUG - CODE] PO
[2018-03-20 21:00] VITALS: BP 127/80
--- NOTE | 2018-03-20 21:00 | NUR ---
CUSTOMER ADVOCACY MANAGER ADMITTING NOTES PATIENT DIRECT ADMIT FROM HOME UNDER CARE OF DR GREGORIO YANG W/ DX OBSTIPATION & ABDOMINAL PAIN. PER PATIENT, HE HASN'T HAD A BM X13 DAYS. PATIENT A/A/O X3, ABLE TO MAKE NEEDS KNOWN & STATE PAIN. BREATHING EVEN & UNLABORED, TOLERATING ROOM AIR. DENIES ANY SOB OR DIFFICULTY BREATHING. RADIAL PULSES PRESENT. ON TELE W/ SINUS TACH, HR 130. IV TO BE INSERTED. C/O SOME ABDOMINAL PAIN & LOWER EXTREMITY PAIN, PAIN MED TO BE GIVEN. SKIN ASSESSMENT DONE. SAFETY MEASURES IN PLACE W/ SIDE RAILS UP & BED ALARM ON. INSTRUCTED TO USE CALL LIGHT FOR ASSISTANCE. WILL CONTINUE TO MONITOR. AWAITING ADMITTING ORDERS.
[2018-03-20] MEDS ORDERED: ZOLPIDEM TARTRATE 10 MG TABLET PO PRN (23:30)
[2018-03-20] MEDS ORDERED: ACETAMINOPHEN 325 MG TABLET PO PRN (23:30)
[2018-03-20] MEDS ORDERED: SIMETHICONE SUSP 40 MG/0.6 ML BOTTLE PO PRN (23:30)
[2018-03-20] MEDS ORDERED: MAGNESIUM CITRATE 296 ML BOTTLE PO ONE (23:30)
[2018-03-20] MEDS ORDERED: MAGNESIUM HYDROXIDE 30 ML UDC PO PRN (23:30)
[2018-03-20] MEDS ORDERED: HYDROCODONE/APAP 5/325MG 1 EACH TABLET PO PRN (23:30)
[2018-03-20] MEDS ORDERED: MAG HYDROX/AL HYDROX/SIMETH 30 ML UDC PO PRN (23:30)
[2018-03-20] MEDS ORDERED: Z GUARD REMEDY 2 OZ OINT TP PRN (23:30)
[2018-03-20] MEDS ORDERED: ZOLPIDEM TARTRATE 5 MG TABLET PO PRN (23:30)
[2018-03-20] MEDS ORDERED: ONDANSETRON HCL/PF 4 MG/2 ML VIAL IVP PRN (23:30)
[2018-03-20] MEDS ORDERED: SENNOSIDES 8.6 MG TABLET PO PRN (23:45)
[2018-03-20] MEDS ORDERED: BISACODYL SUPP (10 MG) 10 MG/SUPP.RECT SUPP.RECT RC PRN (23:45)
[2018-03-20] MEDS ORDERED: LACTULOSE 10 G/15 ML UDC (PYXIS) PO PRN (23:45)
[2018-03-21 00:06] LABS: BASOPHILS # (AUTO) 0.1 /CMM (0.0-0.2); BASOPHILS % (AUTO) 0.8 % (0.0-2.0); EOSINOPHILS % (AUTO) 1.2 % (0.0-6.0); HEMATOCRIT 37 % (39-51); HEMOGLOBIN 12.4 g/dL (13.5-17.5); LYMPHOCYTES # (AUTO) 2.1 /CMM (0.8-4.8); LYMPHOCYTES % (AUTO) 14.3 % (20.0-44.0); MEAN CORPUSCULAR HGB CONC 34 g/dl (31.0-36.0); MEAN CORPUSCULAR VOLUME 82 fL (80-96); MONOCYTES # (AUTO) 1.2 /CMM (0.1-1.30); MONOCYTES % (AUTO) 8.6 % (2.0-12.0); NEUTROPHILS # (AUTO) 10.9 /CMM (1.8-8.9); NEUTROPHILS % (AUTO) 75.1 % (43.0-81.0); PLATELET COUNT (AUTO) 403 /CMM (150-450); RED BLOOD CELL COUNT(AUTO) 4.51 MIL/uL (4.5-6.0); WHITE BLOOD COUNT (AUTO) 14.5 K/uL (4.3-11.0)
[2018-03-21] MEDS ORDERED: SORBITOL SOLUTION 30 ML ONE (00:18)
[2018-03-21] MEDS: SORBITOL SOLUTION 30 ML PO SCH ×3 (00:21→17:04)
[2018-03-21 00:23] LABS: ALBUMIN 2.7 g/dL (3.4-5.0); BILIRUBIN,TOTAL 0.4 mg/dL (0.2-1.0); CALCIUM, SERUM 8.9 mg/dL (8.5-10.1); CREATININE 1.1 mg/dL (0.6-1.3); MAGNESIUM 1.7 mg/dL (1.8-2.4); PHOSPHORUS 2.5 mg/dL (2.5-4.9); POTASSIUM 3.5 mmol/L (3.5-5.1); TOTAL PROTEIN, SERUM 8.5 g/dL (6.4-8.2)
[2018-03-21 00:29] LABS: THYROID STIMULATING HORMONE 1.225 uIU/mL (0.358-3.74)
--- NOTE | 2018-03-21 03:00 | NUR ---
ORGANIC GARDENING TEACHER NOTES REQUESTED ORDER FROM DR GREGORIO YANG FOR EXTERNAL JUGULAR IV INSERTION. PER DR GREGOROI YANG, OK TO INSERT. SPACE OFFICER AMANDA INSERTED EXTERNAL JUGULAR IV #22. GOOD BLOOD RETURN NOTED & FLUSHING WELL.
[2018-03-21] MEDS: IV NS 0.9% 1,000 ML IV PRN ×2 (03:51→23:19)
[2018-03-21] MEDS: HYDROMORPHONE HCL 2 MG TABLET PO PRN ×3 (03:56→18:54)
[2018-03-21 04:00] VITALS: BP 106/65
[2018-03-21] MEDS: DIAZEPAM 10 MG TABLET PO PRN (04:37)
[2018-03-21 06:32] LABS: BASOPHILS # (AUTO) 0.1 /CMM (0.0-0.2); BASOPHILS % (AUTO) 0.8 % (0.0-2.0); EOSINOPHILS % (AUTO) 1.7 % (0.0-6.0); HEMATOCRIT 35 % (39-51); HEMOGLOBIN 11.4 g/dL (13.5-17.5); LYMPHOCYTES # (AUTO) 2.1 /CMM (0.8-4.8); LYMPHOCYTES % (AUTO) 15.1 % (20.0-44.0); MEAN CORPUSCULAR HGB CONC 33 g/dl (31.0-36.0); MEAN CORPUSCULAR VOLUME 83 fL (80-96); MONOCYTES # (AUTO) 1.5 /CMM (0.1-1.30); MONOCYTES % (AUTO) 10.4 % (2.0-12.0); NEUTROPHILS # (AUTO) 10.1 /CMM (1.8-8.9); PLATELET COUNT (AUTO) 396 /CMM (150-450); RED BLOOD CELL COUNT(AUTO) 4.21 MIL/uL (4.5-6.0)
[2018-03-21 06:49] LABS: ALBUMIN 2.5 g/dL (3.4-5.0); BILIRUBIN,TOTAL 0.5 mg/dL (0.2-1.0); CALCIUM, SERUM 8.7 mg/dL (8.5-10.1); MAGNESIUM 1.9 mg/dL (1.8-2.4); PHOSPHORUS 2.7 mg/dL (2.5-4.9); POTASSIUM 3.3 mmol/L (3.5-5.1); TOTAL PROTEIN, SERUM 8.1 g/dL (6.4-8.2)
[2018-03-21 08:00] VITALS: BP 112/63
[2018-03-21] MEDS ORDERED: POTASSIUM CHLORIDE 20 MEQ TAB.PRT.SR PO ONE (10:00)
[2018-03-21 12:00] VITALS: BP 118/64
[2018-03-21 16:00] VITALS: BP 118/64
--- NOTE | 2018-03-21 19:10 | NUR ---
CHIEF LOCK TENDER OPERATOR NOTE PATIENT RESTING IN BED IN STABLE CONDITION, ABLE TO MAKE NEEDS KNOWN. NO RESPIRATORY DISTRESS, ON ROOM AIR. SUPRAPUBIC CATHETER DRAINING YELLOW URINE TO GRAVITY. SIDE RAILS UP, BED IN LOW LOCKED POSITION, CALL LIGHT WITHIN REACH, ENDORSED TO FRAMING CARPENTER NURSE FOR CONTINUITY OF CARE.
--- NOTE | 2018-03-21 19:10 | NUR ---
DRAPERY HAND NOTES RECEIVED PT ON BED. A/O X 4. ON ROOM AIR SATURATING WELL. NO RESPIRATORY DISTRESS NOTED. ON TELE MONITOR SINUS TACHY 105. IV ACCESS DOUGLAS MIDLINE NS @100CC/HR PATENT AND INTACT. SUPRAPUBIC CATH DRAINING WELL. HEAD OF BED ELEVATED. SIDE RAILS UP X3. CALL LIGHT WITHIN REACH, BED ALARM ON, WILL CONTINUE TO MONITOR PT CLOSELY.
[2018-03-21 20:00] VITALS: BP 109/64
--- NOTE | 2018-03-21 20:01 | NUR ---
MS RN NOTES PT DOUGLAS MIDLINE NOT FLUSHING. CHARGE NURSE INFORMED. CHARGE NURSE TRIED TO FLUSH, MIDLINE NOT FLUSHING STILL. WILL CONTINUE TO MONITOR PT CLOSELY.
--- NOTE | 2018-03-21 20:16 | NUR ---
MS RN NOTES MIDLINE NURSE AT BEDSIDE.
--- NOTE | 2018-03-21 21:38 | NUR ---
MS RN NOTES MIDLINE NURSE ABLE TO INSERT LEFT UPPER ARM MIDLINE.
[2018-03-22] MEDS: HYDROMORPHONE HCL 2 MG TABLET PO PRN ×3 (03:04→18:54)
[2018-03-22 04:00] VITALS: BP 136/87
[2018-03-22 06:33] LABS: BASOPHILS # (AUTO) 0.1 /CMM (0.0-0.2); BASOPHILS % (AUTO) 1.2 % (0.0-2.0); HEMATOCRIT 34 % (39-51); HEMOGLOBIN 10.9 g/dL (13.5-17.5); LYMPHOCYTES # (AUTO) 1.8 /CMM (0.8-4.8); LYMPHOCYTES % (AUTO) 17.4 % (20.0-44.0); MEAN CORPUSCULAR HGB CONC 33 g/dl (31.0-36.0); MEAN CORPUSCULAR VOLUME 83 fL (80-96); MONOCYTES # (AUTO) 0.9 /CMM (0.1-1.30); MONOCYTES % (AUTO) 8.7 % (2.0-12.0); NEUTROPHILS # (AUTO) 7.3 /CMM (1.8-8.9); NEUTROPHILS % (AUTO) 69.7 % (43.0-81.0); PLATELET COUNT (AUTO) 392 /CMM (150-450); RED BLOOD CELL COUNT(AUTO) 4.06 MIL/uL (4.5-6.0); WHITE BLOOD COUNT (AUTO) 10.5 K/uL (4.3-11.0)
[2018-03-22 06:49] LABS: CALCIUM, SERUM 8.4 mg/dL (8.5-10.1); CREATININE 0.9 mg/dL (0.6-1.3); MAGNESIUM 2.1 mg/dL (1.8-2.4); PHOSPHORUS 2.8 mg/dL (2.5-4.9); POTASSIUM 3.9 mmol/L (3.5-5.1)
--- NOTE | 2018-03-22 06:51 | NUR ---
MS RN NOTES NO ACUTE CHANGES NOTED DURING THE SHIFT. PT HAD BOWEL MOVEMENT. BED ALARM ON. HEAD OF BED ELEVATED. WILL ENDORSE TO THE AM NURSE FOR CONTINUITY OF CARE.
--- NOTE | 2018-03-22 07:30 | NUR ---
LEGAL ARBITRATOR NOTES RECEIVED PATIENT IN BED. A/O X 4. ABLE TO MAKE NEEDS KNOWN, ON ROOM AIR, SATURATING WELL. NOT ON ANY FORM OF DISTRESS. IV ACCESS CLAUDIA MIDLINE IN PLACE AND INTACT, NO SIGN OF INFILTRATION NOTED, PATENT, WITH ONGOING NS @100CC/HR, SUPRAPUBIC CATH DRAINING WELL VIA GRAVITY. HEAD OF BED ELEVATED. SAFETY MEASURES OBSERVED AND MAINTAINED, SIDE RAILS UP X3, BED ALARM ON, BED LOW AND LOCKED, WILL CONTINUE TO ANTICIPATE NEEDS AND WILL CONTINUE TO MONITOR PATIENT CLOSELY.
[2018-03-22 08:00] VITALS: BP 123/62
--- NOTE | 2018-03-22 08:32 | NUR ---
WOUND CARE CONSULT WOUND CARE RECEIVED CONSULT FOR MULTIPLE FOOT WOUNDS. WOUND CARE WILL DEFER CONSULT AND ALL TREATMENT PLANS TO PLASTIC SURGICAL TEAM WHO ARE CURRENTLY FOLLOWING THIS PATIENT. PATIENT WAS OFFERED [facility] 2 BED WITH ETS AIR FOR TREATMENT WITH LOW AIRLOSS THERAPY AND PATIENT REFUSED THIS BED, WANTED TO STAY IN THE BED HE IS CURRENTLY ON. PATIENT ON [facility]OFLEX [facility] BED AT THIS TIME. PATIENT WITH IDA AT 14, ALL PRESSURE ULCER PREVENTION MEASURES NOTED TO BE IN PLACE AT THIS TIME. WILL SEE PRN.
[2018-03-22] MEDS: HYDROGEL DRESSING 90 GM TUBE TP SCH (09:22)
[2018-03-22] MEDS: SORBITOL SOLUTION 30 ML PO SCH ×2 (09:23→17:00)
[2018-03-22] MEDS: IV NS 0.9% 1,000 ML IV PRN (10:29)
[2018-03-22 11:43] LABS: APPEARANCE,URINE TURBID (CLEAR); COLOR,URINE DARK YELLOW (YELLOW)
[2018-03-22 11:44] LABS: BILIRUBIN,URINE NEGATIVE (NEGATIVE); BLOOD, URINE NEGATIVE Ery/uL (NEGATIVE); KETONES,URINE NEGATIVE (NEGATIVE); NITRITE, URINE POSITIVE (NEGATIVE); PROTEIN,URINE 2+ mg/dl (NEGATIVE); UGLUCOSE NEGATIVE (NEGATIVE); UROBILINOGEN,URINE NORMAL EU/dL (0.2)
[2018-03-22 11:45] LABS: LEUKOCYTE ESTERASE ,URINE 2+ (NEGATIVE)
[2018-03-22 11:46] LABS: BACTERIA,URINE Many /HPF (None Seen); RBC,URINE 0-2 /HPF (0-2); SQUAMOUS EPITHELIAL CELL,UR Few /HPF (None Seen); WBC,URINE 51-80 /HPF (0-3)
[2018-03-22] MEDS: LEVOFLOXACIN (500MG) 500 MG TABLET PO SCH (12:48)
[2018-03-22 16:00] VITALS: BP 129/65
[2018-03-22 18:49] VITALS: BP 129/65
--- NOTE | 2018-03-22 19:09 | NUR ---
RN NOTES ENDORSED PATIENT FOR CONTINUITY OF CARE. NO ACUTE CHANGES THROUGHOUT THE SHIFT. ALL NURSING NEEDS ATTENDED AND MET, SAFETY MEASURES KEPT AT ALL TIMES,BED ALARM ON, BED LOW AND LOCKED POSITION. CALL LIGHT WITHIN REACH AT ALL TIMES
[2018-03-22 20:00] VITALS: BP 131/72
[2018-03-23] MEDS: HYDROMORPHONE HCL 2 MG TABLET PO PRN ×2 (02:04→10:27)
[2018-03-23] MEDS: IV NS 0.9% 1,000 ML IV PRN (02:05)
[2018-03-23] MEDS: DIAZEPAM 10 MG TABLET PO PRN (03:42)
[2018-03-23 04:00] VITALS: BP 123/73
[2018-03-23 06:42] LABS: BASOPHILS # (AUTO) 0.1 /CMM (0.0-0.2); BASOPHILS % (AUTO) 1.3 % (0.0-2.0); EOSINOPHILS % (AUTO) 5.7 % (0.0-6.0); HEMATOCRIT 32 % (39-51); HEMOGLOBIN 10.3 g/dL (13.5-17.5); LYMPHOCYTES # (AUTO) 1.7 /CMM (0.8-4.8); LYMPHOCYTES % (AUTO) 23.8 % (20.0-44.0); MEAN CORPUSCULAR HGB CONC 33 g/dl (31.0-36.0); MEAN CORPUSCULAR VOLUME 83 fL (80-96); MONOCYTES # (AUTO) 0.7 /CMM (0.1-1.30); MONOCYTES % (AUTO) 10.4 % (2.0-12.0); NEUTROPHILS # (AUTO) 4.2 /CMM (1.8-8.9); NEUTROPHILS % (AUTO) 58.8 % (43.0-81.0); PLATELET COUNT (AUTO) 373 /CMM (150-450); RED BLOOD CELL COUNT(AUTO) 3.82 MIL/uL (4.5-6.0); WHITE BLOOD COUNT (AUTO) 7.1 K/uL (4.3-11.0)
[2018-03-23 07:04] LABS: CALCIUM, SERUM 8.3 mg/dL (8.5-10.1); CREATININE 0.9 mg/dL (0.6-1.3); MAGNESIUM 1.8 mg/dL (1.8-2.4); PHOSPHORUS 3.4 mg/dL (2.5-4.9); POTASSIUM 3.7 mmol/L (3.5-5.1)
--- NOTE | 2018-03-23 07:27 | NUR ---
MS RN OPENING NOTES RECEIVED PATIENT IN STABLE CONDITION. IN NO APPARENT DISTRESS. BEDSIDE RAILS ARE UPX2. BED IS LOCKED AND LOWERED. CALL LIGHT IS WITHIN REACH. IV LINE IS INTACT AND PATENT. WILL CONTINUE TO MONITOR PATIENT.
[2018-03-23] MEDS: HYDROGEL DRESSING 90 GM TUBE TP SCH (08:50)
[2018-03-23] MEDS: SORBITOL SOLUTION 30 ML PO SCH (08:51)
[2018-03-23 10:00] VITALS: BP 128/73
--- NOTE | 2018-03-23 10:00 | NUR ---
RN NOTES RECEIVED PATIENT IN BED ALERT, AWAKE, ORIENTED X 4 WITH BREATHING NORMAL, EVEN AND UNLABORED. NO SOB NOTED. NO ACUTE DISTRESS NOTED. ON ROOM AIR, SATURATING WELL. CLAUDIA MIDLINE IS PATENT AND INTACT, RUNNING IVF PER ORDER. SUPRAPUBIC CATH IS PATENT AND INTACT. KEPT CLEAN, DRY AND COMFORTABLE. ALL NEEDS ATTENDED. SAFETY MEASURE OBSERVED. CALL LIGHT WITH IN REACH. WILL CONT TO MONITOR.
[2018-03-23] MEDS ORDERED: TEST200V3 IM (11:36)
[2018-03-23] MEDS ORDERED: LEVO500T75 PO (11:38)
[2018-03-23] MEDS: LEVOFLOXACIN (500MG) 500 MG TABLET PO SCH (12:22)
--- NOTE | 2018-03-23 12:30 | NUR ---
RN NOTES PATIENT IS A/OX4. PATIENT REFUSED FOR WOUND PICTURE UPON DISCHARGE. RISKS EXPLAINED BUT STILL REFUSED STRONGLY. CHARGE NURSE ROSALINA SHELBY.
--- NOTE | 2018-03-23 13:00 | NUR ---
RN NOTES PATIENT DISCHARGED IN STABLE CONDITION WITH BREATHING NORMAL, EVEN AND UNLABORED. NO SOB NOTED. NO ACUTE DISTRESS NOTED. DISCHARGE INSTRUCTION GIVEN WITH FEEDBACK. UNDERSTOOD WELL. CLAUDIA MIDLINE REMOVED. PATIENT LEFT WITH FRIEND IN STABLE CONDITION.
== END 2018-03-23 13:00 | disposition home or self-care (01) | DRG 356 ==
LOC: TELE1 20:31 → MEDSG1 03-21 19:53
PROVIDERS: ADMIT Nurse Practitioner Acute Care; ATTEND Nurse Practitioner Acute Care
PROC: 0JBR0ZZ Excision of Left Foot Subcutaneous Tissue and Fascia, Open Approach (ICD-10-PCS; principal; 2018-03-21)
PROC: 0JBQ0ZZ Excision of Right Foot Subcutaneous Tissue and Fascia, Open Approach (ICD-10-PCS; 2018-03-21)
PROC: 05H633Z Insertion of Infusion Device into Left Subclavian Vein, Percutaneous Approach (ICD-10-PCS; 2018-03-21)
PROC: B547ZZA Ultrasonography of Left Subclavian Vein, Guidance (ICD-10-PCS; 2018-03-21)
DX: K59.00 Constipation, unspecified (principal); L89.523 Pressure ulcer of left ankle, stage 3; L89.513 Pressure ulcer of right ankle, stage 3; L89.623 Pressure ulcer of left heel, stage 3; L89.893 Pressure ulcer of other site, stage 3; L89.324 Pressure ulcer of left buttock, stage 4; D68.59 Other primary thrombophilia; G82.20 Paraplegia, unspecified; N39.0 Urinary tract infection, site not specified; E66.9 Obesity, unspecified; K21.9 Gastro-esophageal reflux disease without esophagitis; I10 Essential (primary) hypertension; E78.5 Hyperlipidemia, unspecified; Z87.440 Personal history of urinary (tract) infections; Z93.3 Colostomy status; F17.200 Nicotine dependence, unspecified, uncomplicated; Z79.891 Long term (current) use of opiate analgesic; Z88.1 Allergy status to other antibiotic agents; Z88.5 Allergy status to narcotic agent; G90.4 Autonomic dysreflexia; Z88.0 Allergy status to penicillin; S81.812S Laceration without foreign body, left lower leg, sequela; S81.811S Laceration without foreign body, right lower leg, sequela; X58.XXXS Exposure to other specified factors, sequela; Z87.81 Personal history of (healed) traumatic fracture; T40.2X5A Adverse effect of other opioids, initial encounter; Y92.009 Unspecified place in unspecified non-institutional (private) residence as the place of occurrence of the external cause; G89.4 Chronic pain syndrome; Z68.33 Body mass index [BMI] 33.0-33.9, adult; Z98.890 Other specified postprocedural states
CPT/HCPCS: 36415; 36569; 74022-TC; 80048-TC; 80053-TC; 80061-TC; 81000-TC; 83690-TC; 83735-TC; 84100-TC; 84443-TC; 85025-TC; 87081-TC; 87086-TC; 87186-TC; A6248; A6402; A6403; C1751; G0378; J7030; Z7610

== ENCOUNTER 2018-08-15 22:24 | Inpatient (IN) | payer MEDICARE ==
[~2018-08-15] VITALS: Ht 190.5 cm; Wt 122.5 kg
[~2018-08-15 22:24] MED LIST changes: -DIPH1TAB28 PO; +LEVO500T75 PO; +TEST200V3 IM; -[UNRECOGNIZED DRUG - CODE] PO
--- NOTE | 2018-08-15 22:45 | NUR ---
ADMITTING NOTES PT BROUGHT SELF IN VIA ELECTRIC WHEELCHAIR, PT IS A FRIEND OF DR. YANG AND CALLED HIM PRIOR TO COMING IN TO BE ADMITTED FOR A WOUND INFECTION. PT IS A PARAPLEGIC, PARALYSED FROM T6 DOWN, AWAKE ALERT ORIENTED X4, BREATHING EVEN AND UNLABORED ON ROOM AIR. YOLETTE AT BEDSIDE INSERTING A MIDLINE ON THE L UPPER ARM 18G. BELONGINGS REVIEWED. WOUNDS REDRESSED AND PICTURED. BED IN LOWEST LOCKED POSITION, CALL LIGHT WITHIN REACH AT ALL TIMES, WILL CONTINUE TO MONITOR.
[2018-08-15] MEDS ORDERED: VANCOMYCIN 1.5 GM in IV NS 0.9% 500 ML IV ONE (23:00)
[2018-08-15] MEDS ORDERED: ONDANSETRON HCL/PF 4 MG/2 ML VIAL IVP PRN (23:00)
[2018-08-15] MEDS ORDERED: HYDROMORPHONE INJ 2 MG/ML DISP.SYRIN IV ONE (23:00)
[2018-08-15] MEDS ORDERED: Z GUARD REMEDY 2 OZ OINT TP PRN (23:00)
[2018-08-15] MEDS ORDERED: ACETAMINOPHEN 325 MG TABLET PO PRN (23:00)
[2018-08-15] MEDS ORDERED: DIAZEPAM 10 MG TABLET PO PRN (23:00)
[2018-08-16 00:01] LABS: BASOPHILS # (AUTO) 0.1 /CMM (0.0-0.2); BASOPHILS % (AUTO) 1.2 % (0.0-2.0); EOSINOPHILS % (AUTO) 5.1 % (0.0-6.0); HEMATOCRIT 35 % (39-51); HEMOGLOBIN 11.3 g/dL (13.5-17.5); LYMPHOCYTES # (AUTO) 2.7 /CMM (0.8-4.8); LYMPHOCYTES % (AUTO) 24.9 % (20.0-44.0); MEAN CORPUSCULAR HGB CONC 33 g/dl (31.0-36.0); MEAN CORPUSCULAR VOLUME 76 fL (80-96); MONOCYTES # (AUTO) 0.8 /CMM (0.1-1.30); MONOCYTES % (AUTO) 7.8 % (2.0-12.0); NEUTROPHILS # (AUTO) 6.6 /CMM (1.8-8.9); PLATELET COUNT (AUTO) 517 /CMM (150-450); RED BLOOD CELL COUNT(AUTO) 4.56 MIL/uL (4.5-6.0); WHITE BLOOD COUNT (AUTO) 10.8 K/uL (4.3-11.0)
[2018-08-16 00:13] LABS: CALCIUM, SERUM 8.7 mg/dL (8.5-10.1); CREATININE 0.8 mg/dL (0.6-1.3); POTASSIUM 3.8 mmol/L (3.5-5.1)
[2018-08-16] MEDS: AZTREONAM 2 G in IV NS 0.9% 100 ML IV SCH ×4 (00:28→21:43)
[2018-08-16] MEDS ORDERED: HYDROMORPHONE INJ 2 MG/ML DISP.SYRIN IV PRN (00:47)
[2018-08-16] MEDS ORDERED: VANCOMYCIN 1.5 GM in IV NS 0.9% 500 ML IV ONE (01:30)
[2018-08-16] MEDS ORDERED: VANCOMYCIN 1 GM VIAL ONE (02:43)
[2018-08-16 04:00] VITALS: BP 129/75
[2018-08-16] MEDS ORDERED: AZTREONAM 1 G VIAL ONE ×2 (05:36)
--- NOTE | 2018-08-16 06:22 | NUR ---
RN MS CLOSING NOTES PT REMAINS IN BED, SLEEPING, EASILY AROUSED TO NAME CALL. BREATHING EVEN AND UNLABOREDON ROOM AIR. IN APPARENT DISTRESS OR DISCOMFORT. MIDLINE ON THE LUPPER ARM 18 PATENT AND FLUSHING. F/C IN PLACE AND DRAINING. BED IN LOWEST LOCKED POSITION, CALL LIGHT WITHIN REACH AT ALL TIMES, WILL ENDORSE TO DAY NURSE FOR SOM.
[2018-08-16 06:24] LABS: BASOPHILS # (AUTO) 0.1 /CMM (0.0-0.2); BASOPHILS % (AUTO) 1.2 % (0.0-2.0); EOSINOPHILS % (AUTO) 5.7 % (0.0-6.0); HEMATOCRIT 34 % (39-51); HEMOGLOBIN 11.1 g/dL (13.5-17.5); LYMPHOCYTES # (AUTO) 2.2 /CMM (0.8-4.8); LYMPHOCYTES % (AUTO) 24.2 % (20.0-44.0); MEAN CORPUSCULAR HGB CONC 33 g/dl (31.0-36.0); MEAN CORPUSCULAR VOLUME 77 fL (80-96); MONOCYTES # (AUTO) 0.8 /CMM (0.1-1.30); MONOCYTES % (AUTO) 8.7 % (2.0-12.0); NEUTROPHILS # (AUTO) 5.3 /CMM (1.8-8.9); NEUTROPHILS % (AUTO) 60.2 % (43.0-81.0); PLATELET COUNT (AUTO) 468 /CMM (150-450); RED BLOOD CELL COUNT(AUTO) 4.45 MIL/uL (4.5-6.0); WHITE BLOOD COUNT (AUTO) 8.9 K/uL (4.3-11.0)
[2018-08-16 06:33] LABS: ALBUMIN 2.7 g/dL (3.4-5.0); BILIRUBIN,TOTAL 0.2 mg/dL (0.2-1.0); CALCIUM, SERUM 8.8 mg/dL (8.5-10.1); CREATININE 0.9 mg/dL (0.6-1.3); MAGNESIUM 1.9 mg/dL (1.8-2.4); PHOSPHORUS 3.6 mg/dL (2.5-4.9); POTASSIUM 3.5 mmol/L (3.5-5.1)
[2018-08-16 06:42] VITALS: BP 129/78
--- NOTE | 2018-08-16 07:29 | NUR ---
RN OPENING NOTES PT WAS RECEIVED IN BED AT LOWEST AND LOCKED POSITION WITH SIDE RAILS UP X2, A/O X4 BREATHING EVEN AND UNLABORED ON RA, NO S/S OF ANY DISTRESS OR PAIN NOTED AT THIS TIME, CLAUDIA MIDLINE IS PATENT AND INTACT, NOTED TO HAVE MULTIPLE WOUNDS ON FEET, SAFETY PRECUATIONS IN PLACE, CALL LIGHT WITHIN REACH, WILL MONITOR PT ACCORDINGLY
[2018-08-16] MEDS: PANTOPRAZOLE 40 MG TABLET.DR PO SCH (07:38)
[2018-08-16 08:00] VITALS: BP 140/81
[2018-08-16 08:14] LABS: APPEARANCE,URINE TURBID (CLEAR); BILIRUBIN,URINE NEGATIVE (NEGATIVE); BLOOD, URINE 2+ Ery/uL (NEGATIVE); COLOR,URINE Light yellow (YELLOW); KETONES,URINE 2+ (NEGATIVE); PH,URINE 7.5 (5.0-8.0); PROTEIN,URINE 2+ mg/dl (NEGATIVE); UGLUCOSE NEGATIVE (NEGATIVE)
[2018-08-16 08:15] LABS: LEUKOCYTE ESTERASE ,URINE 3+ (NEGATIVE); NITRITE, URINE NEGATIVE (NEGATIVE); UROBILINOGEN,URINE 0.2 EU/dL (0.2)
[2018-08-16] MEDS ORDERED: FEE PK DOSING 1 MIN EA MC ONE (08:16)
[2018-08-16 08:20] LABS: BACTERIA,URINE Rare /HPF (None Seen); MUCUS,URINE Few /LPF (None Seen); SQUAMOUS EPITHELIAL CELL,UR 0-2 /HPF (None Seen); URINE AMORPHOUS URATE Few /HPF (None Seen); WBC,URINE TOO NUMEROUS TO COUN /HPF (0-3)
[2018-08-16 09:07] LABS: THYROID STIMULATING HORMONE 2.974 uIU/mL (0.358-3.74)
--- NOTE | 2018-08-16 09:57 | NUR ---
RN NOTE MESSAGE WAS SENT TO REGARDING PHARMACY WANTING TO CHANGE DILAUDID IV 2MG Q2H TO PO 8MG Q4H LIKE WHAT HE TAKES AT HOME. REPLIED SAYING TO KEEP MEDICATION IS AND THAT HE WOULD CHANGE IT TO THE HOME MEDICATIONS TOMORROW. PHARMACY INFORMED OF MESSAGE, WILL MONITOR PT ACCORDINGLY
[2018-08-16] MEDS: HYDROMORPHONE INJ 2 MG/ML DISP.SYRIN IV PRN ×4 (10:11→21:46)
[2018-08-16 12:08] VITALS: BP 140/81
[2018-08-16] MEDS: VANCOMYCIN 1.5 GM in IV D5W 500 ML IV SCH (14:32)
[2018-08-16 16:00] VITALS: BP 124/60
--- NOTE | 2018-08-16 18:14 | NUR ---
RN CLOSING NOTES PT IN BED AT LOWEST AND LOCKED POSITION WITH SIDE RAILS UP X2, A/O X4 BREATHING EVEN AND UNLABORED ON RA, NO COMPLAINTS OR SIGNS OF ANY DISTRESS OR PAIN AT THIS TIME, CLAUDIA MIDLINE IS PATENT AND INTACT WITH IVF CURRENTLY INFUSING, WOUND DEBRIDEMENT DONE TODAY ON BLE, ALL NEEDS ATTENDED TO, SAFETY PRECAUTIONS IN PLACE, CALL LIGHT WITHIN REACH, WILL ENDORSE TO ONCOMING SENIOR JAVA PROGRAMMER RN FOR SOM.
--- NOTE | 2018-08-16 19:20 | NUR ---
RN NOTES RECEIVED PT IN BED AWAKE AND ABLE TO MAKE NEEDS KNOWN. PT A/O X4. RESPIRATIONS EVEN AND UNLABORED WITH NO S/S OF ACUTE DISTRESS OR SOB NOTED. PT ON RA AND TOLERATING WELL. PT DENIES PAIN AT THIS TIME. PT WITH CLAUDIA MIDLINE IS PATENT AND INTACT. SAFETY MEASURES IN PLACE WITH BED IN LOWEST LOCKED POSITION AND SIDE RAILS UP X2. ALL LIGHT WITHIN REACH. WILL CONTINUE TO MONITOR.
[2018-08-16 20:00] VITALS: BP 138/72
--- NOTE | 2018-08-16 21:46 | NUR ---
RN NOTES PT GIVEN DILAUDID FOR PAIN 8-10 IN LOWER LEG AND FEET.
[2018-08-16] MEDS: ZOLPIDEM TARTRATE 5 MG TABLET PO PRN (23:00)
--- NOTE | 2018-08-16 23:00 | NUR ---
MS RN NOTES PT GIVEN AMBIEN FOR DIFFICULTY SLEEPING.
[2018-08-17] MEDS: HYDROMORPHONE INJ 2 MG/ML DISP.SYRIN IV PRN ×5 (02:35→20:45)
[2018-08-17] MEDS: VANCOMYCIN 1.5 GM in IV D5W 500 ML IV SCH ×2 (02:35→16:13)
[2018-08-17 04:00] VITALS: BP 145/71
[2018-08-17] MEDS: AZTREONAM 2 G in IV NS 0.9% 100 ML IV SCH ×3 (05:18→22:52)
[2018-08-17 06:51] LABS: BASOPHILS # (AUTO) 0.1 /CMM (0.0-0.2); BASOPHILS % (AUTO) 1.1 % (0.0-2.0); EOSINOPHILS % (AUTO) 6.7 % (0.0-6.0); HEMATOCRIT 32 % (39-51); HEMOGLOBIN 10.3 g/dL (13.5-17.5); LYMPHOCYTES # (AUTO) 1.8 /CMM (0.8-4.8); LYMPHOCYTES % (AUTO) 25.3 % (20.0-44.0); MEAN CORPUSCULAR HGB CONC 32 g/dl (31.0-36.0); MEAN CORPUSCULAR VOLUME 77 fL (80-96); MONOCYTES # (AUTO) 0.7 /CMM (0.1-1.30); MONOCYTES % (AUTO) 9.7 % (2.0-12.0); NEUTROPHILS % (AUTO) 57.2 % (43.0-81.0); PLATELET COUNT (AUTO) 431 /CMM (150-450)
--- NOTE | 2018-08-17 07:00 | NUR ---
RN NOTES PT IN BED SLEEPING BUT EASILY AWOKEN VERBALLY OR BY TOUCH. PT A/O X4 AND ABLE TO MAKE NEEDS KNOWN. RESPIRATIONS EVEN AND UNLABORED WITH NO S/S OF ACUTE DISTRESS OR SOB NOTED THROUGHOUT SHIFT. PT ON RA AND TOLERATING WELL. PT DENIES PAIN AT THIS TIME. PT WITH CLAUDIA MIDLINE IS PATENT AND INTACT. PT KEPT CLEAN, DRY, AND COMFORTABLE. SAFETY MEASURES IN PLACE WITH BED IN LOWEST LOCKED POSITION AND SIDE RAILS UP X2. ALL LIGHT WITHIN REACH. WILL ENDORSE TO ONCOMING NURSE FOR SOM.
[2018-08-17 07:17] LABS: CALCIUM, SERUM 8.2 mg/dL (8.5-10.1); CREATININE 0.9 mg/dL (0.6-1.3)
[2018-08-17 07:18] LABS: MAGNESIUM 1.8 mg/dL (1.8-2.4); PHOSPHORUS 3.4 mg/dL (2.5-4.9)
--- NOTE | 2018-08-17 07:30 | NUR ---
RN NOTE: RECEIVED PATIENT IN BED, AWAKE, ALERT AND VERBALLY RESPONSIVE. RESPIRATION EVEN AND UNLABORED SATURATING 98% IN ROOM AIR. DENIED ANY PAIN AT THIS TIME. HOB ELEVATED. (L) UA MIDLINE INTACT AND PATENT. BED ON LOWEST POSITION AND LOCKED AT ALL TIMES. CALL LIGHT WITHIN REACH. NEEDS ANTICIPATED. ON SEIZURE PRECAUTION.
[2018-08-17 08:00] VITALS: BP 139/73
[2018-08-17] MEDS: PANTOPRAZOLE 40 MG TABLET.DR PO SCH (08:21)
[2018-08-17] MEDS: DAKINS HALF STRENGTH (0.25%) 480 ML BOTTLE TOP SCH (08:27)
--- NOTE | 2018-08-17 15:07 | NUR ---
RN NOTE: CALLED AND SPOKE WITH DOLLY FROM THE PHARMACY REGARDING THE VANCOMYCIN TROUGH RESULT OF 13. ACCORDING TO DOLLY, SHE WILL SEND THE 3 PM DOSE.
[2018-08-17 16:00] VITALS: BP 111/54
[2018-08-17] MEDS: HYDROGEL DRESSING 90 GM TUBE TP SCH (17:33)
[2018-08-17] MEDS: LACTOBACILLUS RHAMNOSUS GG 1 EACH CAP.SPRINK PO SCH (17:33)
--- NOTE | 2018-08-17 19:46 | NUR ---
RN NOTE: PATIENT REFUSED TO HAVE THE PICTURE TAKEN OF THE WOUND DEBRIDEMENT ON THE (B) LE. BEDSIDE REPORT WAS GIVEN TO PM SHIFT NURSE FOR CONTINUITY OF CARE. PATIENT REFUSED TO BE TURNED AND REPOSITIONED Q2HR DESPITE EXPLANATION OF THE IMPORTANCE OF IT.
[2018-08-17 20:00] VITALS: BP 139/62
--- NOTE | 2018-08-17 22:28 | NUR ---
RECEIVED PT A/O X4 LYING WITH HOB ELEVATED 90 DEGREES WITH LEFT FOOT ELEVATED ON TWO PILLOWS. PLEASANT AND COOPERATIVE WITH THIS TURNTABLE ENGINEER. DENIES ANY PAIN AND WILL CONTINUE WITH CONTINUITY OF CARE AND MONITOR AND OBSERVE FOR THE REST OF THIS FOOD TRADES ASSISTANTS PER POLICY AND PROCEDURE.
--- NOTE | 2018-08-17 22:32 | NUR ---
LATE ENTRY: RECEIVED REPORT FROM [facility] AM SHIFT FOR THIS PT. AT 1999.
[2018-08-18] MEDS: VANCOMYCIN 1.5 GM in IV D5W 500 ML IV SCH ×3 (00:01→23:56)
[2018-08-18] MEDS: ZOLPIDEM TARTRATE 5 MG TABLET PO PRN (00:02)
[2018-08-18] MEDS: HYDROMORPHONE INJ 2 MG/ML DISP.SYRIN IV PRN ×6 (01:33→21:32)
[2018-08-18 04:00] VITALS: BP 122/72
[2018-08-18] MEDS: AZTREONAM 2 G in IV NS 0.9% 100 ML IV SCH ×3 (05:45→20:40)
[2018-08-18 06:55] LABS: BASOPHILS # (AUTO) 0.1 /CMM (0.0-0.2); BASOPHILS % (AUTO) 0.7 % (0.0-2.0); EOSINOPHILS % (AUTO) 6.7 % (0.0-6.0); HEMATOCRIT 34 % (39-51); HEMOGLOBIN 10.9 g/dL (13.5-17.5); LYMPHOCYTES # (AUTO) 1.8 /CMM (0.8-4.8); LYMPHOCYTES % (AUTO) 23.1 % (20.0-44.0); MEAN CORPUSCULAR HGB CONC 33 g/dl (31.0-36.0); MEAN CORPUSCULAR VOLUME 76 fL (80-96); MONOCYTES # (AUTO) 0.6 /CMM (0.1-1.30); MONOCYTES % (AUTO) 7.1 % (2.0-12.0); NEUTROPHILS # (AUTO) 4.9 /CMM (1.8-8.9); NEUTROPHILS % (AUTO) 62.4 % (43.0-81.0); PLATELET COUNT (AUTO) 465 /CMM (150-450); WHITE BLOOD COUNT (AUTO) 7.9 K/uL (4.3-11.0)
[2018-08-18 07:10] LABS: CALCIUM, SERUM 8.6 mg/dL (8.5-10.1); CREATININE 0.8 mg/dL (0.6-1.3); MAGNESIUM 1.7 mg/dL (1.8-2.4); PHOSPHORUS 3.2 mg/dL (2.5-4.9); POTASSIUM 3.7 mmol/L (3.5-5.1)
--- NOTE | 2018-08-18 07:26 | NUR ---
RN MS OPENING NOTES RECEIVED PATIENT IN BED, ASLEEP ABLE TO AROUSE WITH VOICE AND YOUCH A/O X4 RESPIRATION EVEN AND UNLABORED SATURATING 98% IN ROOM AIR NO C/O AT THIS TIME. HOB ELEVATED. (L) UA MIDLINE INTACT AND PATENT. BED ON LOWEST POSITION AND LOCKED AT ALL TIMES. CALL LIGHT WITHIN REACH. NEEDS ANTICIPATED. ON SEIZURE PRECAUTION SAFETY PRECAUTIONS IN PLACE WILL CONT TO MONITOR ACCORDINGLY
[2018-08-18 08:00] VITALS: BP 146/79
[2018-08-18] MEDS: LACTOBACILLUS RHAMNOSUS GG 1 EACH CAP.SPRINK PO SCH ×2 (08:14→16:29)
[2018-08-18] MEDS: DAKINS HALF STRENGTH (0.25%) 480 ML BOTTLE TOP SCH (08:14)
[2018-08-18] MEDS: PANTOPRAZOLE 40 MG TABLET.DR PO SCH (08:14)
[2018-08-18] MEDS: HYDROGEL DRESSING 90 GM TUBE TP SCH (08:14)
[2018-08-18] MEDS: Magnesium 1GM/D5W 100ML PREMIX 100 ML IV SCH ×2 (10:21→11:26)
[2018-08-18] MEDS: NICOTINE PATCH (14MG) 14 MG PATCH.TD24 TD SCH (14:42)
--- NOTE | 2018-08-18 14:51 | NUR ---
RN MS NOTES ORDERS OBTAINED FOR NICOTINE PATCH 14 MG
[2018-08-18 16:00] VITALS: BP 150/89
--- NOTE | 2018-08-18 16:15 | NUR ---
RN MS NOTES DISCHARGE ORDERS PLACED BY DR MOODY PATIENT STATES HE WILL CALL GREGORIO YANG HIS PRIMARY AND GET THE ORDER CHANGED.
--- NOTE | 2018-08-18 18:38 | NUR ---
RN MS NOTES NO SIGNIFICANT CHANGES THROUGHOUT SHIFT. PATIENT A/O X4 BED AND WHEELCHAIR BOUND. NO SIGNS OR SYMPTOMS OF RESPIRATORY DISTRESS [id number] ON ROOM AIR C/O PAIN THROUGH OUT THE DAY DILAUDID GIVEN X3 WITH POSITIVE RESULTS. APPETITE GOOD NO N/V/D NOTED. ALL WOUND CARE DONE WELL PHOTOS D/T DISCHARGE ORDERS. PATIENT DOES NOT WANT TO BE DISCHARGED AWAITING TO HEAR FROM GREGORIO YANG. SUPRA PUBIC DRAINING CLEAR YELLOW URINE . IVF TKO 3 ML/HT TO CLAUDIA MIDLINE #18 GAUGE. NO ABNORMAL LABS VANCO ADJUSTED TO Q8HRS. BED IN LOW POSITION SAFETY /SEIZURE PRECAUTIONS IN PLACE. BED IN LOW POSITION 3X SIDE RAIL ABLE TO MAKE NEEDS KNOWN AND ALL MET BY STAFF.
--- NOTE | 2018-08-18 19:07 | NUR ---
REPORT ENDORSED TO NOC
--- NOTE | 2018-08-18 19:50 | NUR ---
MS RN NOTES RECEIVED PATIENT IN BED, ASLEEP ABLE TO AROUSE WITH VOICE AND TOUCH A/O X4 RESPIRATION EVEN AND UNLABORED SATURATING 96% IN ROOM AIR,DENIES ANY PAIN AT THIS TIME. HOB ELEVATED. SAFETY MEASURES IN PLACED, CALL LIGHT WITHIN EASY REACH, (L) UA MIDLINE INTACT AND PATENT. BED ON LOWEST POSITION AND LOCKED AT ALL TIMES. CALL LIGHT WITHIN REACH. NEEDS ANTICIPATED. ON SEIZURE PRECAUTION SAFETY PRECAUTIONS IN PLACE WILL CONTINUE TO MONITOR ACCORDINGLY
[2018-08-18 20:00] VITALS: BP 126/74
[2018-08-19 00:07] VITALS: BP 126/74
[2018-08-19] MEDS: HYDROMORPHONE INJ 2 MG/ML DISP.SYRIN IV PRN ×5 (00:35→13:06)
--- NOTE | 2018-08-19 00:35 | NUR ---
RN NOTES PATIENT COMPLAINTS OF SEVERE LEFT FOOT PAIN 11/16, DILAUDID 2MG IV PRN GIVEN, KEPT CLEAN , DRY AND COMFORTABLE, WILL MONITOR.
--- NOTE | 2018-08-19 03:59 | NUR ---
RN NOTES PATIENTS COMPLAINTS OF PAIN AT THIS TIME, REPOSITIONED FOR COMFORT, DILAUDID IV GIVEN PRN ODER, WILL CONTINUE TO MONITOR.
[2018-08-19 04:00] VITALS: BP 125/71
[2018-08-19] MEDS: AZTREONAM 2 G in IV NS 0.9% 100 ML IV SCH ×2 (05:02→12:45)
--- NOTE | 2018-08-19 06:04 | NUR ---
RN NOTES ALL NEEDS ATTENDED AND MET, AM LABS DONE THIS MORNING, ABLE TO SLEEP AT INTERVALS, SAFETY MEASURES IN PLACED, WILL ENDORSE TO AM NURSE FOR CONTINUITY OF CARE.
--- NOTE | 2018-08-19 06:40 | NUR ---
RN NOTES PATIENT COMPLAINTS OF SEVERE LEFT FOOT PAIN, DILAUDID 2MG IV GIVEN ORDERED, WILL ENDORSE TO AM NURSE FOR REASSESSMENT OF PAIN LEVEL.
[2018-08-19 06:43] LABS: CALCIUM, SERUM 8.8 mg/dL (8.5-10.1); CREATININE 0.8 mg/dL (0.6-1.3); MAGNESIUM 1.8 mg/dL (1.8-2.4); PHOSPHORUS 3.3 mg/dL (2.5-4.9); POTASSIUM 3.6 mmol/L (3.5-5.1)
[2018-08-19 06:54] LABS: BASOPHILS # (AUTO) 0.1 /CMM (0.0-0.2); BASOPHILS % (AUTO) 0.7 % (0.0-2.0); HEMATOCRIT 33 % (39-51); HEMOGLOBIN 10.9 g/dL (13.5-17.5); LYMPHOCYTES # (AUTO) 1.8 /CMM (0.8-4.8); MEAN CORPUSCULAR HGB CONC 33 g/dl (31.0-36.0); MEAN CORPUSCULAR VOLUME 76 fL (80-96); MONOCYTES # (AUTO) 0.6 /CMM (0.1-1.30); MONOCYTES % (AUTO) 7.7 % (2.0-12.0); NEUTROPHILS # (AUTO) 4.8 /CMM (1.8-8.9); NEUTROPHILS % (AUTO) 62.6 % (43.0-81.0); PLATELET COUNT (AUTO) 398 /CMM (150-450); RED BLOOD CELL COUNT(AUTO) 4.39 MIL/uL (4.5-6.0); WHITE BLOOD COUNT (AUTO) 7.8 K/uL (4.3-11.0)
--- NOTE | 2018-08-19 07:25 | NUR ---
MS RN OPENING NOTE RECEIVED PT IN BED, ALERT AND ORIENTED X4. DENIES CHEST PAIN, SOB, N/V. BREATHING IS EVEN AND UNLABORED ON ROOM AIR. LEFT UPPER ARM MIDLINE IS CLEAN, DRY AND INTACT. PT REPORTS THAT PAIN IN THE LEFT LEG IS "MUCH BETTER" AFTER EARLIER DILAUDID ADMINISTRATION BY DEHYDROGENATION CONVERTER HELPER NURSE. SUPRAPUBIC CATHETER NOTED TO BE DRAINING CLEAR, YELLOW URINE. PT HAS D/C ORDER FROM BUT STATES THAT HE IS AWAITING ORTHO CONSULT PER , NURSE WILL FOLLOW UP. ALL NEEDS ATTENDED TO. BED IS LOCKED AND IN LOWEST POSITION, SIDE RAILS UP X2, BED ALARM ON, CALL LIGHT AND POSSESSIONS WITHIN REACH.
[2018-08-19 08:00] VITALS: BP 150/90
[2018-08-19] MEDS: LACTOBACILLUS RHAMNOSUS GG 1 EACH CAP.SPRINK PO SCH (08:17)
[2018-08-19] MEDS: PANTOPRAZOLE 40 MG TABLET.DR PO SCH (08:17)
[2018-08-19] MEDS: NICOTINE PATCH (14MG) 14 MG PATCH.TD24 TD SCH (08:17)
[2018-08-19] MEDS: HYDROGEL DRESSING 90 GM TUBE TP SCH (08:19)
[2018-08-19] MEDS: DAKINS HALF STRENGTH (0.25%) 480 ML BOTTLE TOP SCH (08:19)
--- NOTE | 2018-08-19 10:00 | NUR ---
MS RN NOTE GARY QUINTERO FOR DR. MADISON AT THE BEDSIDE FOR ORTHO CONSULT REQUESTED BY PT PRIOR TO D/C. YOLANDA HAD LENGTHY DISCUSSION WITH PT REGARDING OPTIONS AND INFORMED THE PT THAT MANAGEMENT AND FOLLOW UP CAN BE DONE IN THE OUTPATIENT SETTING AND PT DOES NOT REQUIRE ANY FURTHER HOSPITAL STAY. PT VERBALIZED UNDERSTANDING AND AGREEMENT. THE NURSE INFORMED THE PT THAT THEY WILL PROVIDE THE PT WITH OFFICE INFORMATION FOR OFFICE AND INQUIRED TO WHO WILL PICK PT UP FOR D/C. PER PT HE WILL MAKE A PHONE CALL AND UPDATE THE NURSE.
[2018-08-19] MEDS ORDERED: LEVO500T75 PO (10:18)
--- NOTE | 2018-08-19 10:47 | NUR ---
MS RN NOTE INFORMED BY THAT PER , PT WILL BE DISCHARGED TOMORROW AND TO HOLD D/C FOR NOW. INFORMED PT.
--- NOTE | 2018-08-19 11:01 | NUR ---
MS RN NOTE PER PHARMACY HOLD WILFREDO PENDING REVIEW OF RECENT TROUGH AND CURRENT ADMINISTRATION ORDERS.
[2018-08-19] MEDS: VANCOMYCIN 1.5 GM in IV D5W 500 ML IV SCH (12:00)
--- NOTE | 2018-08-19 12:27 | NUR ---
MS RN NOTE PER PRIMARY HOSPITALIST HELEN LOUIS, BHARGAVI SHE SPOKE WITH WHO IS IN AGREEMENT TO CONTINUE D/C FOR TODAY. WILL INFORM PT.
--- NOTE | 2018-08-19 15:16 | NUR ---
MS MICROBIOLOGY TECHNICIAN NOTE PT DISCHARGED HOME IN MEDICALLY STABLE CONDITION. PT IS ALERT AND ORIENTED X4, DENIES CHEST PAIN, SOB, N/V, BREATHING IS EVEN AND UNLABORED ON ROOM AIR. NO ACUTE DISTRESS NOTED, VS WITHIN BASELINE. LEFT UPPER ARM MIDLINE REMOVED WITH CATHETER TIP INTACT. DISCHARGE PAPERWORK AND EDUCATION PROVIDED PER PROTOCOL ADLS AND WOUND DOCUMENTATION PROVIDED PER PROTOCOL. PROVIDED CONTACT AND OFFICE INFORMATION FOR WOUND CARE CLINIC TO FOLLOW UP WITH AND FOR FOR OUTPATIENT ORTHO FOLLOW UP. LEVAQUIN PRESCRIPTION CALLED IN BY PRIMARY HOSPITALIST HELEN PANTOJA NP TO PT PREFERRED PHARMACY [facility]. Addendum: 08/19/18 at 1524 by SAHRA FIELDS RN INFORMED PATIENT OF CALLED IN PRESCRIPTION AND PROVIDED DRUG EDUCATION PER PROTOCOL. DISCHARGE PAPERWORK PROVIDED, ALL BELONGING ACCOUNTED FOR AND BELONGINGS LIST SIGNED AND PLACED IN CHART. WOUND CARE PROVIDED PRIOR TO D/C. INFORMED PT TO CALL 911 FOR RETURN TO THE NEAREST ER FOR CHEST PAIN, SOB, UNILATERAL CALF SWELLING, TEMPERATURE THAT DOES NOT GO DOWN WITH TYLENOL ADMINISTRATION, INCREASED OR FOUL DRAINAGE FROM ANY WOUNDS OR REOCCURRENCE OF CHIEF COMPLAINT. PT VERBALIZED UNDERSTANDING AND AGREEMENT. THE REPRODUCTION MACHINE LOADER ACCOMPANIED THE PT TO THE MAIN LOBBY WITHOUT INCIDENT.
== END 2018-08-19 15:24 | disposition home health service (06) | DRG 463 ==
LOC: MEDSG1 22:24
PROVIDERS: ADMIT Nurse Practitioner Acute Care; ATTEND Family Medicine
PROC: 05H633Z Insertion of Infusion Device into Left Subclavian Vein, Percutaneous Approach (ICD-10-PCS; principal; 2018-08-15)
PROC: 0JBR0ZZ Excision of Left Foot Subcutaneous Tissue and Fascia, Open Approach (ICD-10-PCS; 2018-08-16)
PROC: 0JBQ0ZZ Excision of Right Foot Subcutaneous Tissue and Fascia, Open Approach (ICD-10-PCS; 2018-08-16)
PROC: 0KBN0ZZ Excision of Right Hip Muscle, Open Approach (ICD-10-PCS; 2018-08-19)
DX: M86.8X7 Other osteomyelitis, ankle and foot (principal); L89.324 Pressure ulcer of left buttock, stage 4; L89.314 Pressure ulcer of right buttock, stage 4; L89.523 Pressure ulcer of left ankle, stage 3; L89.513 Pressure ulcer of right ankle, stage 3; L89.624 Pressure ulcer of left heel, stage 4; L89.893 Pressure ulcer of other site, stage 3; L89.154 Pressure ulcer of sacral region, stage 4; G82.20 Paraplegia, unspecified; N39.0 Urinary tract infection, site not specified; I87.311 Chronic venous hypertension (idiopathic) with ulcer of right lower extremity; L97.819 Non-pressure chronic ulcer of other part of right lower leg with unspecified severity; K21.9 Gastro-esophageal reflux disease without esophagitis; E78.5 Hyperlipidemia, unspecified; Z87.440 Personal history of urinary (tract) infections; I10 Essential (primary) hypertension; G89.4 Chronic pain syndrome; F17.210 Nicotine dependence, cigarettes, uncomplicated; E66.9 Obesity, unspecified; Z68.33 Body mass index [BMI] 33.0-33.9, adult; Z88.0 Allergy status to penicillin; Z16.24 Resistance to multiple antibiotics; Z86.718 Personal history of other venous thrombosis and embolism; Z93.3 Colostomy status; D63.8 Anemia in other chronic diseases classified elsewhere; M62.838 Other muscle spasm
CPT/HCPCS: 36415; 73610-TC; 80048-TC; 80053-TC; 80061-TC; 80202-TC; 81000-TC; 83540-TC; 83735-TC; 84100-TC; 84443-TC; 85025-TC; 85652-TC; 87070-TC; 87081-TC; 87086-TC; 87186-TC; A6248; A6253; A6402; A6403; G0378; J1170; J3370; J3475; J3490; J7030; J7040; J7060

== ENCOUNTER 2018-11-10 15:38 | Inpatient (IN) | payer MEDICARE ==
[~2018-11-10] VITALS: Ht 190.5 cm; Wt 122.5 kg
--- NOTE | 2018-11-10 16:06 | NUR ---
C/O FEVER, BLURRING OF VISION FROM SACRAL SORE INFECTION. PT IS PARAPLEGIC AND USES ELECTRIC WHEELCHAIR. HAS WRAPPED SORES ON BILATERAL FEET. PLASENCIA CATHETER IN PLACE FOR ONE MONTH. PT IN SEVERE PAIN, HOWEVER, REFUSES PAIN MEDS. PLACED IN GOWN, ON MONITOR, AT BEDSIDE. SEEN BY DR BIRD. AWAITING MD ORDERS
[2018-11-10 16:17] LABS: BASOPHILS # (AUTO) 0.2 /CMM (0.0-0.2); BASOPHILS % (AUTO) 0.9 % (0.0-2.0); EOSINOPHILS % (AUTO) 0.4 % (0.0-6.0); HEMATOCRIT 32 % (39-51); HEMOGLOBIN 10.1 g/dL (13.5-17.5); LYMPHOCYTES # (AUTO) 1.9 /CMM (0.8-4.8); LYMPHOCYTES % (AUTO) 8.7 % (20.0-44.0); MEAN CORPUSCULAR HGB CONC 32 g/dl (31.0-36.0); MEAN CORPUSCULAR VOLUME 75 fL (80-96); MONOCYTES # (AUTO) 1.3 /CMM (0.1-1.30); MONOCYTES % (AUTO) 5.9 % (2.0-12.0); NEUTROPHILS # (AUTO) 18.5 /CMM (1.8-8.9); NEUTROPHILS % (AUTO) 84.1 % (43.0-81.0); PLATELET COUNT (AUTO) 577 /CMM (150-450); RED BLOOD CELL COUNT(AUTO) 4.23 MIL/uL (4.5-6.0)
[2018-11-10] MEDS ORDERED: LISI10TA5 PO (16:19)
[2018-11-10] MEDS ORDERED: ACETAMINOPHEN ES 500 MG TABLET ONE (16:22)
[2018-11-10 16:28] LABS: CALCIUM, SERUM 8.6 mg/dL (8.5-10.1); CARBON DIOXIDE 25 mmol/L (21-32); CHLORIDE 95 mmol/L (98-107); CREATININE 1.5 mg/dL (0.6-1.3); GLUCOSE 148 mg/dL (74-106); POTASSIUM 3.3 mmol/L (3.5-5.1); SODIUM SERUM 133 mmol/L (136-145); UREA NITROGEN, BLOOD 10 mg/dL (7-18)
[2018-11-10] MEDS ORDERED: IV NS 0.9% 1,000 ML BAG IV ONE ×2 (16:30→17:00)
[2018-11-10] MEDS ORDERED: ACETAMINOPHEN ES 500 MG TABLET PO ONE (16:30)
[2018-11-10 16:42] LABS: ALANINE AMINOTRANSFERASE 23 U/L (12-78); ALKALINE PHOSPHATASE 115 U/L (46-116); ASPARTATE AMINOTRANSFERASE 22 U/L (15-37); BILIRUBIN,TOTAL 0.7 mg/dL (0.2-1.0)
[2018-11-10 16:48] LABS: ALBUMIN 2.3 g/dL (3.4-5.0)
--- NOTE | 2018-11-10 16:50 | NUR ---
PT COMPLAINING OF BURNING AT IV SITE. STOPPED IVF. NO EVIDENCE OF INFILTRATION. MD NOTIFIED.
[2018-11-10] MEDS ORDERED: VANCOMYCIN 1 GM in IV D5W 250 ML IV ONE (17:00)
--- NOTE | 2018-11-10 17:33 | NUR ---
ÓSCAR 110
[2018-11-10] MEDS ORDERED: LEVOFLOXACIN 750 MG /D5W 150ML 150 ML IV ONE (17:34)
[2018-11-10] MEDS: LEVOFLOXACIN 750 MG /D5W 150ML 150 ML IV ONE ×2 (17:40→18:06)
--- NOTE | 2018-11-10 17:56 | NUR ---
PICC NURSE YOLETTE AT BEDSIDE FOR MIDLINE INSERTION
--- NOTE | 2018-11-10 18:02 | NUR ---
REPORT GIVEN TO SANDRA DE LA TORRE FOR 110-T
--- NOTE | 2018-11-10 18:08 | NUR ---
RECIEVED REPORT FROM ER NURSE MIKAYLA PT DIAGNOSED WITH SEPSIS ADMITTED BY Angel LOUIS PT HAS A ONE DAY HISTORY OF FEVER TO 103. IN EMERGENCY ROOM GIVEN TYLENOL NEEDS FLUID BOLUS AND WILFREDO ALSO COMPLTED LEVAQUIN 750 GM PT IN EMERGENCY ROOM HAVING MID LINE PLACED. PT GOING INTO ROOM 110 ÓSCAR
--- NOTE | 2018-11-10 18:14 | NUR ---
MIDLINE PLACED LEFT UPPER ARM 18G
[2018-11-10] MEDS ORDERED: ACETAMINOPHEN 325 MG TABLET PO PRN (18:30)
[2018-11-10] MEDS ORDERED: HYDROCODONE/APAP 5/325MG 1 EACH TABLET PO PRN (18:30)
[2018-11-10] MEDS ORDERED: MAG HYDROX/AL HYDROX/SIMETH 30 ML UDC PO PRN (18:30)
[2018-11-10] MEDS ORDERED: ONDANSETRON HCL/PF 4 MG/2 ML VIAL IVP PRN (18:30)
[2018-11-10] MEDS ORDERED: ZOLPIDEM TARTRATE 5 MG TABLET PO PRN (18:30)
[2018-11-10] MEDS ORDERED: FEE PK DOSING 1 MIN EA MC ONE (18:35)
--- NOTE | 2018-11-10 18:47 | NUR ---
PT TRANSFERRED TO UNIT VIA GURNEY. IVF CONT TO INFUSE
[2018-11-10 19:05] VITALS: BP 137/70
--- NOTE | 2018-11-10 19:07 | NUR ---
ER TRANSFER PT IN ROOM 110 ALERT ORIENTED X 4 ST 122 WITH MID LINE IN LUPPER ARM RUNNING NORMAL SALINE BOLUS 2.6 LITERS GOAL AND LEVAQUIN 750 GM VANCO AT BEDSIDE WITH C/O PAIN OR REDNES OR SWELLING. PT HAS SUPRA PUBIC CATHER WITH 50 ML URINE IN COLLECTION. PT NOTED TO HAVE DIAPHORECTIC SKIN AND HAS TEMPERATURE 99.0 ORAL PT LEGS WRAPPED BILATERALLY FROM SORES ON FEET BED IN LOW POSITION ALRMS LABORER CHEMICAL PROCESSING LOPEZ NEXT TO PT. ENDORSED CARE TO PM NURSE FOR CONTINUITY OF CARE.
[2018-11-10] MEDS: IV NS 0.9% 1,000 ML IV PRN (19:55)
[2018-11-10 20:00] VITALS: BP 81/39
--- NOTE | 2018-11-10 20:00 | NUR ---
RN NOTES, PATIENT IN BED ALERT ORIENTED X 4, ADMITTED FROM ER WITH DX SEPSIS, UNDER [facility], ABLE TO VERBALIZED NEEDS AND CONCERNS, BREATHING EVEN AND UNLABORED, NO SOB/ACUTE DISTRESS NOTED AT THIS TIME, ST ON TELE MONITOR, HR 106, CLAUDIA MIDLINE, RUNNING NORMAL SALINE BOLUS 2.6 LITERS GOAL AND LEVAQUIN 750 AND GM VANCOMYCIN INFUSING TOO, PT HAS SUPRA PUBIC CATHETER IN PLACED, MULTIPLE WOUNDS NOTED IN BILATERAL LOWER EXTREMITIES AND BILATERAL BUTTOCKS, WOULD CONSULT TO FOLLOW, AFEBRILE AT THIS TIME, BED LOCKED AND IN LOWEST POSITION, ALARMS PICKLING DRUM OPERATOR LIGHT W/I REACH, NOTED WITH SBP IN 80S, BUT STILL FLUIDS INFUSING AT THIS TIME, WILL CONTINUE TO MONITOR CLOSELY.
--- NOTE | 2018-11-10 21:00 | NUR ---
RN NOTES, END OF NS 2L BOLUS AT THIS TIME, PATIENT WITH SBP IN 80S AT THIS TIME, WILL RECHECK AND F/U WITH MD FOR FURTHER ORDERS.
--- NOTE | 2018-11-10 21:20 | NUR ---
RN NOTES, END OF FLUIDS BOLUS TOTAL 2.6L ADMINISTERED, PATIENT TOLERATED WELL, WILL CONTINUE TO MONITOR CLOSELY.
--- NOTE | 2018-11-10 21:55 | NUR ---
RN NOTES, AFTER 2L NS FINISHED PATIENT NOTED WITH BP IN 80S, 3 READINGS OBTAINED, 86/49, 87/37, 83/33, WITH HR IN LOW 100S, INFORMED ARGENIS HILTON PAINTINGS CONSERVATOR, ALSO INFORMED THAT LACTIC ACID IS WNL, AND HE REPLIED WITH NO NEW ORDERS AT THIS TIME, AND CONTINUE TO MONITOR PATIENT, HE STATED "LET IT BE", PATIENT SLEEPING AND COMFORTABLE AT THIS TIME, WILL CONTINUE TO MONITOR CLOSELY.
--- NOTE | 2018-11-10 23:01 | NUR ---
RN NOTES, PATIENT IN BED ALERT ORIENTED X 4, ADMITTED FROM ER WITH DX SEPSIS, UNDER LOCATED WITHIN [facility], ABLE TO VERBALIZED NEEDS AND CONCERNS, BREATHING EVEN AND UNLABORED, NO SOB/ACUTE DISTRESS NOTED AT THIS TIME, ST ON TELE MONITOR, HR 106, CLAUDIA MIDLINE, RUNNING NORMAL SALINE BOLUS 2.6 LITERS GOAL AND LEVAQUIN 750 AND GM VANCOMYCIN INFUSING TOO, PT HAS SUPRA PUBIC CATHETER IN PLACED, MULTIPLE WOUNDS NOTED IN BILATERAL LOWER EXTREMITIES AND BILATERAL BUTTOCKS, WOULD CONSULT TO FOLLOW, AFEBRILE AT THIS TIME, BED LOCKED AND IN LOWEST POSITION, ALARMS SALES DEVELOPMENT CONSULTANT LIGHT W/I REACH, NOTED WITH SBP IN 80S, BUT STILL FLUIDS INFUSING AT THIS TIME, WILL CONTINUE TO MONITOR CLOSELY. Addendum: 11/10/18 at 2309 by GER KUMAR RN WRONG TIME SEE 1999
[2018-11-11] VITALS: BP 95/59
--- NOTE | 2018-11-11 00:35 | NUR ---
0035 BHARGAVI HILTON WAS NOTIFIED OF PATIENT'S C/O ANXIETY WITH ORDER MADE. ORDER NOTED.
[2018-11-11] MEDS ORDERED: LORAZEPAM INJ 2 MG/ML VIAL IV PRN (01:00)
--- NOTE | 2018-11-11 03:03 | NUR ---
RN NOTES, PATIENT COMPLAINING OF HEADACHE 7/10 AT THIS TIME AND HR 120S-130S, AND PATIENT ASKING FOR DILAUDID, HE REPLIED THAT HES NOT GOING TO GIVE DILAUDID, AND ORDER TO GIVE ONLY 1MG IV X ONCE NOW AND, FOLLOW UP WITH ADMITTING DOCTOR, AND HE IS NOT GOING TO ADDRESS THE HIGH HR AT THIS TIME, WILL CONTINUE TO MONITOR CLOSELY.
[2018-11-11] MEDS ORDERED: HYDROMORPHONE 1 MG/1 ML DISP.SYRIN IV ONE (03:30)
[2018-11-11 04:00] VITALS: BP 111/57
[2018-11-11] MEDS: IV NS 0.9% 1,000 ML IV PRN (04:51)
[2018-11-11 06:21] LABS: CREATININE 1.7 mg/dL (0.6-1.3); MAGNESIUM 1.4 mg/dL (1.8-2.4); POTASSIUM 3.3 mmol/L (3.5-5.1)
[2018-11-11 06:26] LABS: BASOPHILS % (AUTO) 0.2 % (0.0-2.0); EOSINOPHILS % (AUTO) 1.7 % (0.0-6.0); HEMATOCRIT 30 % (39-51); HEMOGLOBIN 9.2 g/dL (13.5-17.5); LYMPHOCYTES # (AUTO) 0.8 /CMM (0.8-4.8); MEAN CORPUSCULAR HGB CONC 31 g/dl (31.0-36.0); MEAN CORPUSCULAR VOLUME 76 fL (80-96); MONOCYTES # (AUTO) 0.8 /CMM (0.1-1.30); MONOCYTES % (AUTO) 6.3 % (2.0-12.0); NEUTROPHILS # (AUTO) 11.2 /CMM (1.8-8.9); NEUTROPHILS % (AUTO) 85.8 % (43.0-81.0); PLATELET COUNT (AUTO) 436 /CMM (150-450); RED BLOOD CELL COUNT(AUTO) 3.91 MIL/uL (4.5-6.0)
--- NOTE | 2018-11-11 07:07 | NUR ---
CLINICAL TEAM MANAGER CLOSING NOTES, PATIENT IN BED ALERT ORIENTED X 4, ADMITTED FROM ER WITH DX SEPSIS, UNDER [facility], ABLE TO VERBALIZED NEEDS AND CONCERNS, BREATHING EVEN AND UNLABORED, NO SOB/ACUTE DISTRESS NOTED AT THIS TIME, ST ON TELE MONITOR, HR BETWEEN 115 TO 135, SKILLS INSTRUCTOR DOCTOR HAS BEEN NOTED, CLAUDIA MIDLINE, RUNNING NORMAL SALINE BOLUS 2.6 LITERS GOAL AND LEVAQUIN 750 AND GM VANCOMYCIN INFUSING TOO, PT HAS SUPRA PUBIC CATHETER IN PLACED, MULTIPLE WOUNDS NOTED IN BILATERAL LOWER EXTREMITIES AND BILATERAL BUTTOCKS, WOULD CONSULT TO FOLLOW, AFEBRILE AT THIS TIME, BED LOCKED AND IN LOWEST POSITION, ALARMS SKILLS INSTRUCTOR LIGHT W/I REACH, WILL ENDORSE TO AM RN FOR CONTINUES MONITOR.
--- NOTE | 2018-11-11 07:30 | NUR ---
TIMBER SPRINKLER OPENING RECEIVED PATIENT AWAKE AND RESTING COMFORTABLY IN HIS BED, HE IS AO X4 AND ON A REGULAR DIET. HE IS BED BOUND WITH MULTIPLE WOUNDS, AND SUPRAPUBIC CATHETER. HE HAS A LEFT UPPER ARM MIDLINE INFUSING NS AT 75 ML/HR. SAFETY MEASURES HAVE BEEN IMPLEMENTED, SIDE RAILS UP X2, BED IN LOWEST AND LOCKED POSITION, WILL CONTINUE TO MONITOR FOR ANY CHANGES.
[2018-11-11 08:00] VITALS: BP_SYST 87; BP_DIAS 43; BP_DIAS 50
[2018-11-11] MEDS: VANCOMYCIN 1 GM in IV D5W 250 ML IV SCH ×3 (08:22→22:42)
[2018-11-11] MEDS ORDERED: POTASSIUM CHLORIDE 20 MEQ TAB.PRT.SR PO SCH (10:00)
[2018-11-11] MEDS: Magnesium 1GM/D5W 100ML PREMIX 100 ML IV SCH ×4 (10:48→13:47)
[2018-11-11] MEDS ORDERED: HYDROMORPHONE INJ 0.5 MG/0.5 ML SYRINGE IV PRN (11:00)
[2018-11-11] MEDS: HYDROMORPHONE INJ 2 MG/ML DISP.SYRIN IV PRN ×3 (11:32→19:47)
[2018-11-11 12:00] VITALS: BP_SYST 84; BP_SYST 87; BP_DIAS 47; BP_DIAS 50
[2018-11-11] MEDS ORDERED: NEOMY SULF/BACITRAC ZN/POLY 15 GM TUBE TP PRN (12:30)
--- NOTE | 2018-11-11 15:27 | NUR ---
RN NOTES PRIOR TO WOUND CARE PATIENT WAS PREMEDICATED WITH 2MG OF DILAUDID. WOUNDS ON BILATERAL BUTTOCKS WERE CLEANSED WITH NS, APPLIED OIL EMULSION DRESSING, AND COVERED WITH MEPILEX. SACRAL WOUND CLEANSED WITH NS AND COVERED WITH MEPILEX. ABRASION ON R KNEE WAS CLEANSED WITH NS, APPLIED TRIPLE ANTIBIOTIC OINTMENT. PATIENT TOLERATED WOUND CARE WELL. WILL CONTINUE TO MONITOR.
[2018-11-11] MEDS ORDERED: LIDOCAINE 1%-EPI 1:100,000 50 ML VIAL IJ ONE (15:30)
[2018-11-11 16:00] VITALS: BP_SYST 84; BP_SYST 97; BP_DIAS 47; BP_DIAS 51
[2018-11-11] MEDS: HYDROGEL DRESSING 90 GM TUBE TP SCH ×2 (16:30→22:28)
[2018-11-11] MEDS: DAKINS QUARTER STRENGTH (0.125%) 480 ML BOTTLE TOP SCH (16:30)
[2018-11-11] MEDS: CLOTRIMAZOLE 1% 15 GM TUBE TP SCH (18:12)
[2018-11-11] MEDS: LACTOBACILLUS RHAMNOSUS GG 1 EACH CAP.SPRINK PO SCH (18:12)
[2018-11-11] MEDS: LEVOFLOXACIN 500 MG /D5W 100ML 500 MG in PREMIX 1 EA IV SCH (18:12)
--- NOTE | 2018-11-11 19:55 | NUR ---
RN CLOSING NOTES PATIENT IS RESTING IN BED COMFORTABLY. HE IS AOX4. HE HAS A SALINE LOCK ON LEFT UA, PATENT, INTACT. BED IS IN LOWEST AND LOCKED POSITION, SAFETY MEASURES HAVE BEEN IMPLEMENTED, CALL LIGHT WITHIN REACH. PATIENT HAS BEEN ENDORSED TO PM NURSE FOR CONTINUOUS CARE.
--- NOTE | 2018-11-11 20:25 | NUR ---
RN NOTES PATIENT IS RESTING IN BED COMFORTABLY, HE IS AOX4, ABLE TO VERBALIZED NEEDS AND CONCERNS, ENDORSED TO ELIESER FOR CONTINUATION OF CARE, NOTED CLAUDIA MIDLINE DISLODGE AND ENDORSE TO ELIESER FOR POSSIBLE INSERTION OF A NEW MIDLINE, PATIENT PLACED IN BARIATRIC BED.
--- NOTE | 2018-11-11 20:30 | NUR ---
QUENCHING MACHINE OPERATOR NOTES INFORMED CHARGE NURSE AND DIVISION CHAIR THAT MIDLINE IS DISLODGED/PULLED OUT. AWAITING INSERTION FOR NEW LINE.
--- NOTE | 2018-11-11 22:32 | NUR ---
HUMAN PERFORMANCE CONSULTANT NOTES RUCHEST #22G IV INSERTED AND STARTED VANCO. VANCO WAS STARTED LATE BECAUSE NO LINE WAS AVAILABLE UNTIL NOW.
[2018-11-12] MEDS: HYDROMORPHONE INJ 2 MG/ML DISP.SYRIN IV PRN ×2 (01:59→05:01)
[2018-11-12] MEDS: IV NS 0.9% 1,000 ML IV PRN (04:43)
[2018-11-12 06:45] LABS: CREATININE, URINE 43.2 MG/DL (30.0-125.0); URINE TOTAL PROTEIN 48.1 mg/dL (0-11.9)
--- NOTE | 2018-11-12 06:45 | NUR ---
CEO & FOUNDER NOTES PT NOTED WITH CHEST IV #22G WAS DISLODGE AND PULLED OUT. CHARGE NURSE MADE AWARE. WILL ENDORSE TO MORNING NURSE.
[2018-11-12 07:48] LABS: APPEARANCE,URINE SL CLOUDY (CLEAR); BILIRUBIN,URINE NEGATIVE (NEGATIVE); BLOOD, URINE 2+ Ery/uL (NEGATIVE); COLOR,URINE YELLOW (YELLOW); KETONES,URINE NEGATIVE (NEGATIVE); LEUKOCYTE ESTERASE ,URINE 3+ (NEGATIVE); NITRITE, URINE NEGATIVE (NEGATIVE); PH,URINE 7.5 (5.0-8.0); PROTEIN,URINE TRACE mg/dl (NEGATIVE); UGLUCOSE NEGATIVE (NEGATIVE); UROBILINOGEN,URINE 0.2 EU/dL (0.2)
--- NOTE | 2018-11-12 07:51 | NUR ---
SCRAP MATERIALS BUYER NOTES PT IN BED AWAKE AND ABLE TO MAKE NEEDS KNOWN. PT A/O X4. RESPIRATIONS EVEN AND UNLABORED WITH NO S/S OF ACUTE DISTRESS OR SOB NOTED. NO COMPLAINTS OF PAIN AT THIS TIME. PT KEPT CLEAN, DRY, AND COMFORTABLE. PT TURNED Q2HRS. SAFETY MEASURES IN PLACE WITH BED IN LOWEST LOCKED POSITION WITH SIDE RAILS UP X2. CALL LIGHT WITHIN REACH. WILL ENDORSE TO ONCOMING NURSE FOR SOM.
[2018-11-12 08:00] VITALS: BP 126/63
--- NOTE | 2018-11-12 08:28 | NUR ---
PER MIDLINE NURSE THEY RECOMMEND CENTRAL LINE,SPOKE WITH GREGORIO YANG AND VERBALIZED HE WILL PLACED LINE TODAY,CONSENT OBTAINED FROM PATIENT,HELENKOKO LOUIS NOTIFIED.
[2018-11-12] MEDS ORDERED: HYDROMORPHONE INJ 0.5 MG/0.5 ML SYRINGE IM/IV PRN (08:30)
[2018-11-12 08:42] LABS: BACTERIA,URINE Few /HPF (None Seen); SQUAMOUS EPITHELIAL CELL,UR Few /HPF (None Seen); WBC,URINE 21-50 /HPF (0-3)
[2018-11-12 08:43] LABS: URINE AMORPHOUS URATE Few /HPF (None Seen)
[2018-11-12] MEDS: LACTOBACILLUS RHAMNOSUS GG 1 EACH CAP.SPRINK PO SCH ×2 (09:09→17:26)
[2018-11-12] MEDS: HYDROMORPHONE INJ 2 MG/ML DISP.SYRIN IM/IV PRN ×4 (09:10→22:26)
[2018-11-12] MEDS: HYDROGEL DRESSING 90 GM TUBE TP SCH ×2 (09:15→21:11)
[2018-11-12] MEDS: DAKINS QUARTER STRENGTH (0.125%) 480 ML BOTTLE TOP SCH (09:15)
[2018-11-12] MEDS: CLOTRIMAZOLE 1% 15 GM TUBE TP SCH ×2 (09:16→17:26)
[2018-11-12 10:50] LABS: EOSINOPHIL,URINE Few
[2018-11-12 12:00] VITALS: BP 135/68
[2018-11-12 15:41] LABS: BASOPHILS % (AUTO) 0.4 % (0.0-2.0); HEMATOCRIT 28 % (39-51); HEMOGLOBIN 8.8 g/dL (13.5-17.5); LYMPHOCYTES # (AUTO) 1.6 /CMM (0.8-4.8); MEAN CORPUSCULAR HGB CONC 32 g/dl (31.0-36.0); MEAN CORPUSCULAR VOLUME 75 fL (80-96); MONOCYTES # (AUTO) 0.8 /CMM (0.1-1.30); MONOCYTES % (AUTO) 7.6 % (2.0-12.0); NEUTROPHILS # (AUTO) 7.1 /CMM (1.8-8.9); PLATELET COUNT (AUTO) 491 /CMM (150-450); RED BLOOD CELL COUNT(AUTO) 3.69 MIL/uL (4.5-6.0); WHITE BLOOD COUNT (AUTO) 10.2 K/uL (4.3-11.0)
[2018-11-12] MEDS ORDERED: SILVER NITRATE APPLICATOR 1 EA BOX TP STA (15:41)
[2018-11-12 15:57] LABS: POTASSIUM 3.3 mmol/L (3.5-5.1)
[2018-11-12 15:58] LABS: BILIRUBIN,TOTAL 0.1 mg/dL (0.2-1.0); CALCIUM, SERUM 8.4 mg/dL (8.5-10.1); CREATININE 1.3 mg/dL (0.6-1.3); PHOSPHORUS 2.7 mg/dL (2.5-4.9)
[2018-11-12 15:59] LABS: ALBUMIN 1.8 g/dL (3.4-5.0); MAGNESIUM 1.6 mg/dL (1.8-2.4); TOTAL PROTEIN, SERUM 7.2 g/dL (6.4-8.2)
[2018-11-12 16:00] VITALS: BP 131/83
[2018-11-12] MEDS: VANCOMYCIN 1 GM in IV D5W 250 ML IV SCH (17:26)
[2018-11-12] MEDS: LEVOFLOXACIN 500 MG /D5W 100ML 500 MG in PREMIX 1 EA IV SCH (19:22)
[2018-11-12] MEDS ORDERED: POTASSIUM CHLORIDE 20 MEQ TAB.PRT.SR PO SCH (19:30)
[2018-11-12 20:00] VITALS: BP_SYST 127; BP_SYST 97; BP_DIAS 46; BP_DIAS 69
--- NOTE | 2018-11-12 20:00 | NUR ---
VISUAL BASIC PROGRAMMER NOTES PATIENT IN BED AWAKE A/O X4ABLE TO MAKE NEEDS KNOWN, BREATHING EVEN AND UNLABORED NO S/S OF ACUTE DISTRESS OR SOB NOTED, NO COMPLAINTS OF PAIN AT THIS TIME, RIGHT FEMORAL CATH IN PLACED, ATB INFUSING AT THIS TIME, PATIENT TOLERATED WELL, SAFETY MEASURES IN PLACE S/P DEBRIDEMENT OF SACRAL/BUTTOCKS WOUND TODAY, BED LOCKED AND LOW POSITION WITH SIDE RAILS UP X2, CALL LIGHT WITHIN REACH, WILL CONTINUE TO MONITOR CLOSELY.
[2018-11-13] VITALS: BP 106/56
[2018-11-13] MEDS: HYDROMORPHONE INJ 2 MG/ML DISP.SYRIN IM/IV PRN ×5 (01:47→21:01)
[2018-11-13 04:00] VITALS: BP 130/70
[2018-11-13] MEDS: VANCOMYCIN 1 GM in IV D5W 250 ML IV SCH ×2 (05:43→16:50)
--- NOTE | 2018-11-13 06:32 | NUR ---
BREEDING TECHNICIAN NOTES, PATIENT IN BED SLEEPING AT THIS TIME, BREATHING EVEN AND UNLABORED NO S/S OF ACUTE DISTRESS OR SOB NOTED, NO SIGNIFICANT CHANGE IN CONDITION DURING THE NIGHT, BED LOCKED AND LOW POSITION WITH SIDE RAILS UP X3, CALL LIGHT WITHIN REACH, WILL ENDORSE CONTINUITY OF CARE TO ONCOMING NURSE.
[2018-11-13 06:35] LABS: BASOPHILS % (AUTO) 0.5 % (0.0-2.0); EOSINOPHILS % (AUTO) 6.9 % (0.0-6.0); HEMATOCRIT 28 % (39-51); HEMOGLOBIN 8.8 g/dL (13.5-17.5); LYMPHOCYTES # (AUTO) 1.8 /CMM (0.8-4.8); LYMPHOCYTES % (AUTO) 19.5 % (20.0-44.0); MEAN CORPUSCULAR HGB CONC 32 g/dl (31.0-36.0); MEAN CORPUSCULAR VOLUME 75 fL (80-96); MONOCYTES # (AUTO) 0.7 /CMM (0.1-1.30); MONOCYTES % (AUTO) 7.7 % (2.0-12.0); NEUTROPHILS # (AUTO) 6.2 /CMM (1.8-8.9); NEUTROPHILS % (AUTO) 65.4 % (43.0-81.0); PLATELET COUNT (AUTO) 487 /CMM (150-450); RED BLOOD CELL COUNT(AUTO) 3.67 MIL/uL (4.5-6.0); WHITE BLOOD COUNT (AUTO) 9.5 K/uL (4.3-11.0)
[2018-11-13 06:39] LABS: ALBUMIN 1.8 g/dL (3.4-5.0); BILIRUBIN,TOTAL 0.1 mg/dL (0.2-1.0); CALCIUM, SERUM 8.5 mg/dL (8.5-10.1); CREATININE 1.2 mg/dL (0.6-1.3); MAGNESIUM 1.4 mg/dL (1.8-2.4); PHOSPHORUS 3.3 mg/dL (2.5-4.9); POTASSIUM 3.5 mmol/L (3.5-5.1); TOTAL PROTEIN, SERUM 7.4 g/dL (6.4-8.2)
--- NOTE | 2018-11-13 06:49 | NUR ---
UNDERGROUND MINING SECTION FOREMAN NOTES, PATIENT IN BED SLEEPING AT THIS TIME, BREATHING EVEN AND UNLABORED NO S/S OF ACUTE DISTRESS OR SOB NOTED, NO SIGNIFICANT CHANGE IN CONDITION DURING THE NIGHT, BED LOCKED AND LOW POSITION WITH SIDE RAILS UP X3, WOUND TREATMENT DONE, ALL DUE MEDS ADMINISTERED, PATIENT KEPT DRY AND CLEAN, ALL NEEDS PROVIDED, CALL LIGHT WITHIN REACH, WILL ENDORSE CONTINUITY OF CARE TO ONCOMING NURSE.
[2018-11-13 08:00] VITALS: BP 113/68
--- NOTE | 2018-11-13 08:19 | NUR ---
BENEFITS CONSULTANT OPENING NOTES PATIENT RECEIVED IN BED AND AWAKE. A/O X4, NO SOB OR ACUTE DISTRESS NOTED. BREATHING EVEN AND UNLABORED. NO COMPLAINTS OF PAIN AT THIS TIME. RIGHT FEMORAL CATH INTACT AND PATENT. SAFETY MEASURES IN PLACE, CALL LIGHT WITHIN REACH. BED LOCKED AND LOW POSITION WITH SIDE RAILS UP X2, WILL CONTINUE TO MONITOR..
[2018-11-13] MEDS: LACTOBACILLUS RHAMNOSUS GG 1 EACH CAP.SPRINK PO SCH ×2 (09:25→16:50)
[2018-11-13] MEDS: DAKINS QUARTER STRENGTH (0.125%) 480 ML BOTTLE TOP SCH (09:41)
[2018-11-13] MEDS: HYDROGEL DRESSING 90 GM TUBE TP SCH ×2 (09:42→21:00)
[2018-11-13] MEDS: CLOTRIMAZOLE 1% 15 GM TUBE TP SCH ×2 (09:42→16:52)
[2018-11-13] MEDS: Magnesium 1GM/D5W 100ML PREMIX 100 ML IV SCH ×4 (10:32→13:28)
[2018-11-13] MEDS: IV NS 0.9% 1,000 ML IV PRN (11:38)
[2018-11-13 14:19] LABS: *SPE A/G RATIO 0.5 (0.7-1.7); *SPE ALBUMIN 2.2 g/dL (2.9-4.4); *SPE ALPHA-1-GLOBULIN 0.4 g/dL (0.0-0.4); *SPE ALPHA-2-GLOBULIN 1.2 g/dL (0.4-1.0); *SPE BETA GLOBULIN 0.9 g/dL (0.7-1.3); *SPE GLOBULIN, TOTAL 4.1 g/dL (2.2-3.9); *SPE M-SPIKE Not Observed g/dL (Not Observed); *SPEGAMMA GLOBULIN 1.6 g/dL (0.4-1.8)
[2018-11-13 15:18] LABS: PTH, INTACT 41 pg/mL (15-65)
[2018-11-13 16:00] VITALS: BP 112/53
[2018-11-13] MEDS: LEVOFLOXACIN 500 MG /D5W 100ML 500 MG in PREMIX 1 EA IV SCH (18:28)
--- NOTE | 2018-11-13 19:34 | NUR ---
COMPUTER SALESPERSON RETAIL CLOSING NOTES PATIENT IN BED AND AWAKE WATCHING TV. A/O X4, NO SOB OR ACUTE DISTRESS NOTED. BREATHING EVEN AND UNLABORED. NO COMPLAINTS OF PAIN AT THIS TIME. RIGHT FEMORAL CATH INTACT AND PATENT. WOUND CARE COMPLETED DURING SHIFT BY WOUND CARE PA. NO SIGNIFICANT CHANGES NOTED DURING SHIFT. PLASENCIA CATHETER INTACT AND PATENT DRAINING CLEAR YELLOW. PAIN MANAGED WELL THROUGHOUT SHIFT. SAFETY MEASURES IN PLACE, CALL LIGHT WITHIN REACH. BED LOCKED AND LOW POSITION WITH SIDE RAILS UP X2. CARE ENDORSED TO LINER MACHINE OPERATOR RN. .
--- NOTE | 2018-11-13 19:55 | NUR ---
RN OPENING NOTES RECEIVED REPORT FROM DAYSHIFT RN COURTNEY. FOUND Pt AWAKE, RESTING IN BED, WATCHING TV. NO S/S OF ACUTE DISTRESS OR SOB NOTED. Pt IS A/OX4, VERBAL, ABLE TO MAKE NEEDS KNOWN. SUPRAPUBIC CATHETER IN PLACE, DRAINING WELL. IV ACCESS ON R FEMORAL CATH, TRIPLE LUMEN. SAFETY MEASURES IN PLACE. BED LOW, LOCKED, HOB ELEVATED, SIDE RAILS UP, CALL LIGHT AND BEDSIDE TABLE WITHIN REACH. WILL CONTINUE TO MONITOR Pt's CONDITION AND SAFETY THROUGHOUT THE NIGHT.
[2018-11-13 20:00] VITALS: BP 118/65
[2018-11-14] MEDS: HYDROMORPHONE INJ 2 MG/ML DISP.SYRIN IM/IV PRN ×6 (02:17→23:03)
[2018-11-14] MEDS: VANCOMYCIN 1 GM in IV D5W 250 ML IV SCH ×2 (05:14→16:53)
--- NOTE | 2018-11-14 06:29 | NUR ---
RN CLOSING NOTES NO SIGNIFICANT CHANGES IN Pt's CONDITION. Pt IS AWAKE RESTING IN BED, FRIENDS VISITING AT BEDSIDE. RESPIRATIONS EVEN AND UNLABORED. NO S/S OF ACUTE DISTRESS OR SEVERE SOB NOTED DURING THE NIGHT. URINE OUTPUT 2600ML. ALL NEEDS MET AND ATTENDED TO. SAFETY MEASURES IN PLACE. WILL ENDORSE TO DAYSHIFT RN FOR Pt's SOM.
[2018-11-14 06:36] LABS: BASOPHILS # (AUTO) 0.1 /CMM (0.0-0.2); BASOPHILS % (AUTO) 0.8 % (0.0-2.0); EOSINOPHILS % (AUTO) 6.6 % (0.0-6.0); HEMATOCRIT 28 % (39-51); HEMOGLOBIN 8.8 g/dL (13.5-17.5); LYMPHOCYTES # (AUTO) 1.6 /CMM (0.8-4.8); LYMPHOCYTES % (AUTO) 17.6 % (20.0-44.0); MEAN CORPUSCULAR HGB CONC 32 g/dl (31.0-36.0); MEAN CORPUSCULAR VOLUME 75 fL (80-96); MONOCYTES # (AUTO) 0.7 /CMM (0.1-1.30); MONOCYTES % (AUTO) 7.8 % (2.0-12.0); NEUTROPHILS # (AUTO) 6.1 /CMM (1.8-8.9); NEUTROPHILS % (AUTO) 67.2 % (43.0-81.0); PLATELET COUNT (AUTO) 483 /CMM (150-450); RED BLOOD CELL COUNT(AUTO) 3.69 MIL/uL (4.5-6.0)
[2018-11-14] MEDS: IV NS 0.9% 1,000 ML IV PRN ×2 (06:49→23:03)
[2018-11-14 06:54] LABS: CALCIUM, SERUM 8.6 mg/dL (8.5-10.1); CREATININE 1.1 mg/dL (0.6-1.3); MAGNESIUM 1.8 mg/dL (1.8-2.4); PHOSPHORUS 3.4 mg/dL (2.5-4.9); POTASSIUM 3.4 mmol/L (3.5-5.1)
--- NOTE | 2018-11-14 07:53 | NUR ---
MS RN OPENING NOTES PATIENT RECEIVED IN BED AND AWAKE. A/O X4, NO SOB OR ACUTE DISTRESS NOTED. BREATHING EVEN AND UNLABORED ON ROOM AIR. NO COMPLAINTS OF PAIN AT THIS TIME. RIGHT FEMORAL CATH INTACT AND PATENT. SAFETY MEASURES IN PLACE, CALL LIGHT WITHIN REACH. BED LOCKED AND LOW POSITION WITH SIDE RAILS UP X2. WILL CONTINUE TO MONITOR..
[2018-11-14 08:00] VITALS: BP 116/65
[2018-11-14] MEDS ORDERED: LIDOCAINE 1%-EPI 1:100,000 20 ML VIAL TP ONE (08:30)
[2018-11-14] MEDS: LACTOBACILLUS RHAMNOSUS GG 1 EACH CAP.SPRINK PO SCH ×2 (09:07→16:53)
[2018-11-14] MEDS ORDERED: POTASSIUM CHLORIDE 20 MEQ TAB.PRT.SR PO SCH (09:30)
[2018-11-14] MEDS: DAKINS QUARTER STRENGTH (0.125%) 480 ML BOTTLE TOP SCH (09:44)
[2018-11-14] MEDS: HYDROGEL DRESSING 90 GM TUBE TP SCH ×2 (09:44→21:00)
[2018-11-14] MEDS: CLOTRIMAZOLE 1% 15 GM TUBE TP SCH ×2 (09:45→16:54)
[2018-11-14] MEDS ORDERED: HYDROMORPHONE 1 MG/1 ML DISP.SYRIN IV ONE (11:00)
--- NOTE | 2018-11-14 14:00 | NUR ---
MS RN NOTE WOUND CARE COMPLETED ORDERED WITH WOUND CARE PA.
[2018-11-14 16:00] VITALS: BP 121/69
[2018-11-14] MEDS: LEVOFLOXACIN (500MG) 500 MG TABLET PO SCH (18:01)
[2018-11-14] MEDS ORDERED: FEE PK DOSING 1 MIN EA MC ONE (18:54)
[2018-11-14] MEDS ORDERED: DOSING PER PHARMACY-AMIKACI IV XX PRN (19:00)
--- NOTE | 2018-11-14 19:42 | NUR ---
MS RN CLOSING NOTES PATIENT IN BED AND AWAKE. REPORT GIVEN BEDSIDE TO COMBATANT DIVER OFFICER RN. PATIENT A/O X4, NO SOB OR ACUTE DISTRESS NOTED. BREATHING EVEN AND UNLABORED ON ROOM AIR. NO COMPLAINTS OF PAIN AT THIS TIME. PAIN WELL MANAGED THROUGHOUT SHIFT. WOUND CARE COMPLETED ORDERED. RIGHT FEMORAL CATH INTACT AND PATENT. SAFETY MEASURES IN PLACE, CALL LIGHT WITHIN REACH. BED LOCKED AND LOW POSITION WITH SIDE RAILS UP X2. CARE ENDORSED TO COMBATANT DIVER OFFICER RN. ..
[2018-11-14 20:00] VITALS: BP 120/75
[2018-11-14] MEDS ORDERED: AMIKACIN IV SCH (20:00)
[2018-11-14] MEDS ORDERED: D5W IV SCH (20:00)
--- NOTE | 2018-11-14 20:00 | NUR ---
MS RN OPENING NOTES RECEIVED PATIENT'S BEDSIDE REPORT FROM AM RN. PATIENT RECEIVED IN BED AND AWAKE. A/O X4, NO SOB OR ACUTE DISTRESS NOTED. BREATHING EVEN AND UNLABORED ON ROOM AIR. NO COMPLAINTS OF PAIN AT THIS TIME. RIGHT FEMORAL CATH INTACT AND PATENT. SAFETY MEASURES IN PLACE, CALL LIGHT WITHIN REACH. BED LOCKED AND LOW POSITION WITH SIDE RAILS UP X2. WILL CONTINUE TO MONITOR PATIENT CLOSELY.
[2018-11-14] MEDS: LINEZOLID 600 MG TABLET PO SCH (21:00)
[2018-11-15] MEDS: HYDROMORPHONE INJ 2 MG/ML DISP.SYRIN IM/IV PRN ×7 (03:05→23:56)
[2018-11-15 04:00] VITALS: BP 118/78
[2018-11-15 05:47] LABS: BASOPHILS # (AUTO) 1.1 /CMM (0.0-0.2); EOSINOPHILS % (AUTO) 5.1 % (0.0-6.0); HEMATOCRIT 30 % (39-51); HEMOGLOBIN 9.5 g/dL (13.5-17.5); LYMPHOCYTES # (AUTO) 1.5 /CMM (0.8-4.8); MEAN CORPUSCULAR HGB CONC 31 g/dl (31.0-36.0); MEAN CORPUSCULAR VOLUME 75 fL (80-96); MONOCYTES # (AUTO) 0.9 /CMM (0.1-1.30); NEUTROPHILS # (AUTO) 10.6 /CMM (1.8-8.9); NEUTROPHILS % (AUTO) 71.5 % (43.0-81.0); PLATELET COUNT (AUTO) 526 /CMM (150-450); RED BLOOD CELL COUNT(AUTO) 4.04 MIL/uL (4.5-6.0); WHITE BLOOD COUNT (AUTO) 14.8 K/uL (4.3-11.0)
[2018-11-15 05:52] LABS: BASOPHILS % (AUTO) 7.4 % (0.0-2.0)
[2018-11-15 05:59] LABS: CALCIUM, SERUM 8.4 mg/dL (8.5-10.1); CREATININE 1.1 mg/dL (0.6-1.3); MAGNESIUM 1.3 mg/dL (1.8-2.4); PHOSPHORUS 3.6 mg/dL (2.5-4.9); POTASSIUM 4.4 mmol/L (3.5-5.1)
--- NOTE | 2018-11-15 07:20 | NUR ---
RN OPENING NOTES PT IS ASLEEP IN BED IN SEMI SANCHEZ POSITION EQUAL CHEST RISE AND FALL OBSERVED. PT HAS A SUPRAPUBIC CATHETER DRAINING TO GRAVITY. RECEIVED REPORT FROM WATER RESOURCES TECHNICAL OFFICER RN. PT IS ON A BARIATRIC BED IN SEMI SANCHEZ POSITION. NO OBVIOUS SIGNS OF SOB NOTED AT THIS PRESENT TIME WILL CONTINUE TO MONITOR.
[2018-11-15 08:00] VITALS: BP 122/63
[2018-11-15] MEDS: LACTOBACILLUS RHAMNOSUS GG 1 EACH CAP.SPRINK PO SCH ×2 (08:55→17:31)
[2018-11-15] MEDS: LINEZOLID 600 MG TABLET PO SCH ×2 (08:56→20:18)
[2018-11-15] MEDS: CLOTRIMAZOLE 1% 15 GM TUBE TP SCH ×2 (08:57→17:32)
[2018-11-15] MEDS: HYDROGEL DRESSING 90 GM TUBE TP SCH ×2 (08:57→20:29)
[2018-11-15] MEDS: DAKINS QUARTER STRENGTH (0.125%) 480 ML BOTTLE TOP SCH (08:57)
[2018-11-15] MEDS: Magnesium 1GM/D5W 100ML PREMIX 100 ML IV SCH ×4 (10:05→14:22)
--- NOTE | 2018-11-15 12:45 | NUR ---
PT HAD A WOUND DEBRIDEMENT ON STAGE 4 SACRAL. MINIMAL BLEEDING. WILL CONTINUE TO MONITOR.
[2018-11-15 16:00] VITALS: BP 119/64
[2018-11-15] MEDS: LEVOFLOXACIN (500MG) 500 MG TABLET PO SCH (17:41)
[2018-11-15] MEDS: IV NS 0.9% 1,000 ML IV PRN (18:50)
--- NOTE | 2018-11-15 19:40 | NUR ---
MS RN OPENING NOTES Received patient, A/O x4, awake on bed, on RA, no SOB/respiratory distress noted. Patient denies any discomfort at this time. Explained to patient the POC for the night, patient verbalized understanding. Kept pt on bed, on fall precautions, call light within easy reach. Will continue to monitor accordingly.
--- NOTE | 2018-11-15 19:51 | NUR ---
RN CLOSING NOTES NO SIGNIFICANT CHANGES DURING DAY SHIFT. ENDORSED CONTINUITY OF CARE TO WEB ENGINEER RN.
[2018-11-15 20:00] VITALS: BP 99/67
[2018-11-16] MEDS: HYDROMORPHONE INJ 2 MG/ML DISP.SYRIN IM/IV PRN ×6 (02:56→22:18)
[2018-11-16 04:00] VITALS: BP 96/47
[2018-11-16] MEDS: IV NS 0.9% 1,000 ML IV PRN ×2 (06:51→21:56)
--- NOTE | 2018-11-16 07:02 | NUR ---
MS RN CLOSING NOTES Patient asleep, easily awaken. On RA, no SOB/respiratory distress noted. Afebrile the whole shift. Medicated for pain, noted effective. All nursing needs attended. Due meds given as ordered. Kept on bed clean, dry and comfortable. On fall precautions. Call light within easy reach. Endorsed to the next shift.
--- NOTE | 2018-11-16 07:30 | NUR ---
OPENING Received patient, A/O x4, awake on bed, on RA, no SOB/respiratory distress noted. Patient denies any discomfort at this time. Explained to patient the POC for the night, patient verbalized understanding. Kept pt on bed, on fall precautions, call light within easy reach. Will continue to monitor
[2018-11-16 08:00] VITALS: BP 123/73
[2018-11-16] MEDS: KETOROLAC TROMETHAMINE INJ 30 MG/ML VIAL IV PRN ×2 (08:14→20:59)
[2018-11-16] MEDS: LACTOBACILLUS RHAMNOSUS GG 1 EACH CAP.SPRINK PO SCH ×2 (09:05→16:43)
[2018-11-16] MEDS: LINEZOLID 600 MG TABLET PO SCH ×2 (09:05→21:56)
[2018-11-16] MEDS: DAKINS QUARTER STRENGTH (0.125%) 480 ML BOTTLE TOP SCH (09:05)
[2018-11-16] MEDS: HYDROGEL DRESSING 90 GM TUBE TP SCH ×2 (09:06→21:59)
[2018-11-16] MEDS: CLOTRIMAZOLE 1% 15 GM TUBE TP SCH ×2 (09:06→16:43)
[2018-11-16] MEDS: AMIKACIN IV SCH (09:09)
[2018-11-16] MEDS: D5W IV SCH (09:09)
[2018-11-16 11:42] LABS: BASOPHILS # (AUTO) 0.1 /CMM (0.0-0.2); BASOPHILS % (AUTO) 0.7 % (0.0-2.0); EOSINOPHILS % (AUTO) 3.8 % (0.0-6.0); HEMATOCRIT 30 % (39-51); HEMOGLOBIN 9.4 g/dL (13.5-17.5); LYMPHOCYTES # (AUTO) 1.7 /CMM (0.8-4.8); LYMPHOCYTES % (AUTO) 11.5 % (20.0-44.0); MEAN CORPUSCULAR HGB CONC 32 g/dl (31.0-36.0); MEAN CORPUSCULAR VOLUME 75 fL (80-96); MONOCYTES # (AUTO) 1.1 /CMM (0.1-1.30); MONOCYTES % (AUTO) 7.6 % (2.0-12.0); NEUTROPHILS # (AUTO) 11.1 /CMM (1.8-8.9); NEUTROPHILS % (AUTO) 76.4 % (43.0-81.0); PLATELET COUNT (AUTO) 524 /CMM (150-450); RED BLOOD CELL COUNT(AUTO) 3.96 MIL/uL (4.5-6.0); WHITE BLOOD COUNT (AUTO) 14.6 K/uL (4.3-11.0)
[2018-11-16 11:53] LABS: CALCIUM, SERUM 8.5 mg/dL (8.5-10.1); CREATININE 1.2 mg/dL (0.6-1.3); MAGNESIUM 1.6 mg/dL (1.8-2.4); PHOSPHORUS 3.9 mg/dL (2.5-4.9); POTASSIUM 4.4 mmol/L (3.5-5.1)
[2018-11-16 12:00] VITALS: BP 123/73
[2018-11-16] MEDS: LEVOFLOXACIN (500MG) 500 MG TABLET PO SCH (18:16)
--- NOTE | 2018-11-16 18:17 | NUR ---
CLOSING Patient asleep, easily awaken. On RA, no SOB/respiratory distress noted. Afebrile the whole shift. Medicated for pain, noted effective. All nursing needs attended TO AND medications given as ordered. Kept on bed clean, dry and comfortable. On fall precautions. Call light within easy reach. Endorsed to the next shift.
--- NOTE | 2018-11-16 19:16 | NUR ---
MS RN RECEIVE PT IN BED A/O X 3 STABLE, RESPIRATIONS EVEN AND UNLABORED, SAFETY MEASURES IN PLACE. WILL CONTINUE TO MONITOR.
[2018-11-16 20:00] VITALS: BP 123/65
[2018-11-17] MEDS: HYDROMORPHONE INJ 2 MG/ML DISP.SYRIN IM/IV PRN ×6 (03:17→21:09)
[2018-11-17 04:00] VITALS: BP 113/64
[2018-11-17] MEDS: KETOROLAC TROMETHAMINE INJ 30 MG/ML VIAL IV PRN ×2 (05:46→13:17)
[2018-11-17 06:12] LABS: CALCIUM, SERUM 8.1 mg/dL (8.5-10.1); CREATININE 1.1 mg/dL (0.6-1.3); POTASSIUM 4.3 mmol/L (3.5-5.1)
--- NOTE | 2018-11-17 06:16 | NUR ---
MS RN ASLEEP AND EASILY AWAKEN, RESPIRATIONS EVEN AND UNLABORED. PAIN MEDICATED WITH PRN PAIN MED WITH RELIEF. SLEPT WELL. AM CARE RENDERED, KEPT CLEAN AND DRY AND COMFORTABLE. NEEDS ATTENDED AND ANTICIPATED, REPOSITION EVERY 2 HOURS, OFFLOAD HEELS AND ELBOWS. TREATMENT ORDERED. GOOD SKIN CARE PROVIDED. SAFETY MEASURES AT ALL TIMES. ENDORSE TO THE NEXT SHIFT.
[2018-11-17 06:28] LABS: BASOPHILS # (AUTO) 0.1 /CMM (0.0-0.2); BASOPHILS % (AUTO) 0.4 % (0.0-2.0); EOSINOPHILS % (AUTO) 3.6 % (0.0-6.0); HEMATOCRIT 29 % (39-51); HEMOGLOBIN 9.2 g/dL (13.5-17.5); LYMPHOCYTES # (AUTO) 2.2 /CMM (0.8-4.8); LYMPHOCYTES % (AUTO) 15.5 % (20.0-44.0); MEAN CORPUSCULAR HGB CONC 32 g/dl (31.0-36.0); MEAN CORPUSCULAR VOLUME 75 fL (80-96); MONOCYTES % (AUTO) 6.7 % (2.0-12.0); NEUTROPHILS # (AUTO) 10.7 /CMM (1.8-8.9); NEUTROPHILS % (AUTO) 73.8 % (43.0-81.0); PLATELET COUNT (AUTO) 516 /CMM (150-450); RED BLOOD CELL COUNT(AUTO) 3.84 MIL/uL (4.5-6.0); WHITE BLOOD COUNT (AUTO) 14.5 K/uL (4.3-11.0)
[2018-11-17 08:00] VITALS: BP 92/56
[2018-11-17] MEDS: LACTOBACILLUS RHAMNOSUS GG 1 EACH CAP.SPRINK PO SCH ×2 (08:06→17:02)
[2018-11-17] MEDS: LINEZOLID 600 MG TABLET PO SCH ×2 (08:07→20:57)
[2018-11-17] MEDS: HYDROGEL DRESSING 90 GM TUBE TP SCH ×2 (08:08→20:59)
[2018-11-17] MEDS: DAKINS QUARTER STRENGTH (0.125%) 480 ML BOTTLE TOP SCH (08:08)
[2018-11-17] MEDS: CLOTRIMAZOLE 1% 15 GM TUBE TP SCH ×2 (08:08→17:04)
[2018-11-17] MEDS: IV NS 0.9% 1,000 ML IV PRN (13:28)
[2018-11-17 16:00] VITALS: BP 89/39
[2018-11-17] MEDS: LEVOFLOXACIN (500MG) 500 MG TABLET PO SCH (17:02)
[2018-11-17 20:00] VITALS: BP 116/73
--- NOTE | 2018-11-17 21:00 | NUR ---
RN NOTE AMIKACIN TROUGH LEVEL STILL PENDING, SPOKE TO AIRCRAFT INSPECTOR JULIANO, PER JULIANO IT WILL TAKE UP TO 5 HOURS FOR RESULTS TO COME BACK, NOTIFIED PHARMACIST TAWANA, PER PHARMACIST HOLD THE DOSE OF AMIKACIN UNTIL RESULTS COME BACK, WILL CONTINUE TO MONITOR
[2018-11-18] MEDS: HYDROMORPHONE INJ 2 MG/ML DISP.SYRIN IM/IV PRN ×6 (00:20→20:36)
[2018-11-18] MEDS: AMIKACIN IV SCH (03:31)
[2018-11-18] MEDS: D5W IV SCH (03:31)
--- NOTE | 2018-11-18 03:32 | NUR ---
RN NOTE AMIKACIN TROUGH LEVEL 2.5, PER TAWANA PHARMACIST OK TO ADMINISTER
[2018-11-18 04:00] VITALS: BP 111/64
[2018-11-18 06:22] LABS: BASOPHILS # (AUTO) 0.1 /CMM (0.0-0.2); BASOPHILS % (AUTO) 0.8 % (0.0-2.0); EOSINOPHILS % (AUTO) 3.6 % (0.0-6.0); HEMATOCRIT 29 % (39-51); HEMOGLOBIN 8.8 g/dL (13.5-17.5); LYMPHOCYTES % (AUTO) 16.2 % (20.0-44.0); MEAN CORPUSCULAR HGB CONC 31 g/dl (31.0-36.0); MEAN CORPUSCULAR VOLUME 75 fL (80-96); MONOCYTES # (AUTO) 0.8 /CMM (0.1-1.30); MONOCYTES % (AUTO) 6.4 % (2.0-12.0); PLATELET COUNT (AUTO) 525 /CMM (150-450); RED BLOOD CELL COUNT(AUTO) 3.79 MIL/uL (4.5-6.0); WHITE BLOOD COUNT (AUTO) 12.4 K/uL (4.3-11.0)
[2018-11-18 06:24] LABS: CALCIUM, SERUM 8.4 mg/dL (8.5-10.1); POTASSIUM 4.3 mmol/L (3.5-5.1)
[2018-11-18] MEDS: IV NS 0.9% 1,000 ML IV PRN (07:06)
--- NOTE | 2018-11-18 07:16 | NUR ---
RN NOTE PATIENT IS STABLE, NO ACUTE CHANGES NOTED, PAIN IS WELL CONTROLLED WITH PAIN MEDICATIONS, TURNED AND REPOSITIONED Q 2 HOURS, ALL SAFETY MEASURES, WILL ENDORSE TO AM SHIFT TO CONTINUE CARE
[2018-11-18 08:00] VITALS: BP 104/57
[2018-11-18 08:06] VITALS: BP 104/57
[2018-11-18] MEDS: LACTOBACILLUS RHAMNOSUS GG 1 EACH CAP.SPRINK PO SCH ×2 (08:40→17:09)
[2018-11-18] MEDS: LINEZOLID 600 MG TABLET PO SCH ×2 (08:40→21:03)
[2018-11-18] MEDS: DAKINS QUARTER STRENGTH (0.125%) 480 ML BOTTLE TOP SCH (08:45)
[2018-11-18] MEDS: HYDROGEL DRESSING 90 GM TUBE TP SCH ×2 (08:45→21:03)
[2018-11-18] MEDS: CLOTRIMAZOLE 1% 15 GM TUBE TP SCH ×2 (08:46→17:10)
[2018-11-18] MEDS ORDERED: SILVER NITRATE APPLICATOR 1 EA BOX TP PRN (10:30)
[2018-11-18] MEDS ORDERED: LIDOCAINE 1%-EPI 1:100,000 50 ML VIAL IJ ONE (10:30)
--- NOTE | 2018-11-18 15:10 | NUR ---
debridement at bedside, R buttock wound. Wound culture sent to Lesley blake
[2018-11-18 16:00] VITALS: BP 101/45
[2018-11-18] MEDS: LEVOFLOXACIN (500MG) 500 MG TABLET PO SCH (18:11)
--- NOTE | 2018-11-18 19:02 | NUR ---
PATIENT ASLEEP AND EASILY AWAKEN, RESPIRATIONS EVEN AND UNLABORED ON ROOM AIR. MEDICATED WITH PRN PAIN MED . SLEPT WELL. KEPT CLEAN AND DRY AND COMFORTABLE. NEEDS ATTENDED, REPOSITIONED Q2 HOURS, OFFLOAD HEELS AND ELBOWS.WOUND TREATMENT ORDERED. SAFETY MEASURES OBSERVED. WILL ENDORSE TO THE NEXT SHIFT FOR SOM.
[2018-11-18 20:00] VITALS: BP 112/53
[2018-11-19] MEDS: IV NS 0.9% 1,000 ML IV PRN ×2 (00:15→14:33)
[2018-11-19] MEDS: HYDROMORPHONE INJ 2 MG/ML DISP.SYRIN IM/IV PRN ×5 (01:30→18:26)
[2018-11-19 04:00] VITALS: BP 105/61
--- NOTE | 2018-11-19 06:53 | NUR ---
RN NOTE PATIENT IS STABLE, RESTED WELL AT NIGHT, NO DISTRESS NOTED, PAIN IS WELL CONTROLLED WITH PAIN MEDICATIONS, TURNED AND REPOSITIONED Q 2 HOURS, ALL NEEDS ATTENDED, ALL SAFETY MEASURES TAKEN, WILL ENDORSE TO AM SHIFT TO CONTINUE CARE
--- NOTE | 2018-11-19 07:30 | NUR ---
ms rn opening notes received pt in bed, a/ox3. pt able to make needs known. on room air. no s/sx of resp distress noted. vs stable. bed in locked/lowest position. on kci mattress. call light in reach. will cont to monitor.
[2018-11-19 08:00] VITALS: BP 114/62
[2018-11-19] MEDS: LINEZOLID 600 MG TABLET PO SCH ×2 (08:37→20:33)
[2018-11-19] MEDS: LACTOBACILLUS RHAMNOSUS GG 1 EACH CAP.SPRINK PO SCH ×2 (08:37→18:23)
[2018-11-19] MEDS: HYDROGEL DRESSING 90 GM TUBE TP SCH ×2 (08:42→20:43)
[2018-11-19] MEDS: CLOTRIMAZOLE 1% 15 GM TUBE TP SCH ×2 (08:42→19:20)
[2018-11-19] MEDS: DAKINS QUARTER STRENGTH (0.125%) 480 ML BOTTLE TOP SCH (08:42)
[2018-11-19] MEDS: D5W IV SCH (09:30)
[2018-11-19] MEDS: AMIKACIN IV SCH (09:30)
[2018-11-19 10:20] LABS: BASOPHILS # (AUTO) 0.1 /CMM (0.0-0.2); BASOPHILS % (AUTO) 0.7 % (0.0-2.0); EOSINOPHILS % (AUTO) 2.9 % (0.0-6.0); HEMATOCRIT 30 % (39-51); HEMOGLOBIN 9.3 g/dL (13.5-17.5); LYMPHOCYTES # (AUTO) 1.5 /CMM (0.8-4.8); LYMPHOCYTES % (AUTO) 11.4 % (20.0-44.0); MEAN CORPUSCULAR HGB CONC 32 g/dl (31.0-36.0); MEAN CORPUSCULAR VOLUME 76 fL (80-96); MONOCYTES # (AUTO) 0.7 /CMM (0.1-1.30); MONOCYTES % (AUTO) 5.6 % (2.0-12.0); NEUTROPHILS # (AUTO) 10.4 /CMM (1.8-8.9); NEUTROPHILS % (AUTO) 79.4 % (43.0-81.0); PLATELET COUNT (AUTO) 550 /CMM (150-450); RED BLOOD CELL COUNT(AUTO) 3.93 MIL/uL (4.5-6.0); WHITE BLOOD COUNT (AUTO) 13.2 K/uL (4.3-11.0)
[2018-11-19 10:53] LABS: CALCIUM, SERUM 8.6 mg/dL (8.5-10.1); CREATININE 1.2 mg/dL (0.6-1.3); POTASSIUM 4.2 mmol/L (3.5-5.1)
--- NOTE | 2018-11-19 12:00 | NUR ---
ms rn notes dr ibrahim requested suprapubic catheter 28Fr 30cc. ordered through central supply. technicians are working on getting it ordered. dr ibrahim aware.
[2018-11-19] MEDS: KETOROLAC TROMETHAMINE INJ 30 MG/ML VIAL IV PRN ×2 (12:47→23:03)
--- NOTE | 2018-11-19 12:54 | NUR ---
ms rn notes picc line inserted by dr ibrahim. confirmed by xray. ok to use.
[2018-11-19] MEDS: PROSOURCE / PROSTAT (PYXIS) 30 ML UDC GT SCH ×2 (14:23→17:23)
[2018-11-19 16:00] VITALS: BP_SYST 97; BP_SYST 98; BP_DIAS 47; BP_DIAS 58
--- NOTE | 2018-11-19 16:23 | NUR ---
will endorse to pm nurse to follow up if not supplied by end of shift. Addendum: 11/19/18 at 1625 by LYNETTE CHAVES RN re: suprapubic catheter 28Fr 30cc Addendum: 11/19/18 at 1949 by LYNETTE CHAVES RN DR YANG DOES NOT WANT [address]. PM NURSE TO ENDORSE AM NURSE TO FOLLOW UP.
[2018-11-19] MEDS: LEVOFLOXACIN (500MG) 500 MG TABLET PO SCH (18:23)
--- NOTE | 2018-11-19 19:30 | NUR ---
MS RN NOTES PT IN BED, A/OX3. VS STABLE. WOUND TX COMPLETED; PT TOLERATED WITH PAIN MEDS GIVEN. ENDORSED TO NIGHT NURSE FOR SOM.
[2018-11-19 20:00] VITALS: BP 115/68
--- NOTE | 2018-11-19 20:11 | NUR ---
MS RN OPENING NOTES RECEIVED PATIENT ON BED, AWAKE/ALERT X4, ROOM AIR, TOLERATED WELL, NO SOH NOTED, PATIENT DENIES PAIN AT THIS TIME. RIGHT ARM PICC LINE 3 LUMEN, NO FILTRATION NOTED. ALL SAFETY MEASURES ARE IN PLACE, BED LOCKED/LOW POSITION, CALL LIGHT WITHIN REACHED. WILL CONTINUE TO MONITOR.
--- NOTE | 2018-11-20 | NUR ---
MS RN NOTE, CHECKED PATIENTS RIGHT GROIN PER DR. GREGORIO YANG'S ORDER. RIGHT GROIN CENTRAL LINE WAS REMOVED DURING DAY SHIFT, NO S/S OF BLEEDING.
[2018-11-20] MEDS: HYDROMORPHONE INJ 2 MG/ML DISP.SYRIN IM/IV PRN ×7 (00:15→21:33)
[2018-11-20 04:00] VITALS: BP 123/62
--- NOTE | 2018-11-20 07:30 | NUR ---
MS RN OPENING NOTES RECEIVED REPORT AT BEDSIDE. PT AWAKE/ALERT/ORIENTED X4, ROOM AIR, SATURATING WELL. NO SIGN OF RESPIRATORY DISTRESS NOTED. NO SOB NOTED. RIGHT ARM PICC LINE 3 LUMEN, NO FILTRATION NOTED. SUPRAPUBIC PLASENCIA CATCHER DARNING TO GRAVITY, CLEAR URINE. ALL SAFETY MEASURES ARE IN PLACE, BED LOCKED/LOWEST POSITION, SIDE RAILS UP X3 AND PADDED, CALL LIGHT WITHIN REACHED. WILL CONT' TO MONITOR CLOSELY. .
[2018-11-20 07:32] LABS: CALCIUM, SERUM 8.3 mg/dL (8.5-10.1); MAGNESIUM 1.8 mg/dL (1.8-2.4); PHOSPHORUS 4.4 mg/dL (2.5-4.9); POTASSIUM 4.2 mmol/L (3.5-5.1)
--- NOTE | 2018-11-20 07:37 | NUR ---
MS RN OPENING NOTES PATIENT ON BED, AWAKE/ALERT X4, ROOM AIR, TOLERATED WELL, NO SOH NOTED, PATIENT DENIES PAIN AT THIS TIME. RIGHT ARM PICC LINE 3 LUMEN, NO FILTRATION NOTED. ALL SAFETY MEASURES ARE IN PLACE, BED LOCKED/LOW POSITION, CALL LIGHT WITHIN REACHED. WILL ENDORSE TO AM NURSE FOR CONTINUES CARE.
[2018-11-20 07:39] LABS: BASOPHILS # (AUTO) 0.1 /CMM (0.0-0.2); EOSINOPHILS % (AUTO) 3.8 % (0.0-6.0); HEMATOCRIT 29 % (39-51); HEMOGLOBIN 9.2 g/dL (13.5-17.5); LYMPHOCYTES % (AUTO) 16.5 % (20.0-44.0); MEAN CORPUSCULAR HGB CONC 31 g/dl (31.0-36.0); MEAN CORPUSCULAR VOLUME 75 fL (80-96); MONOCYTES # (AUTO) 0.9 /CMM (0.1-1.30); MONOCYTES % (AUTO) 7.4 % (2.0-12.0); NEUTROPHILS # (AUTO) 8.6 /CMM (1.8-8.9); NEUTROPHILS % (AUTO) 71.3 % (43.0-81.0); PLATELET COUNT (AUTO) 537 /CMM (150-450); RED BLOOD CELL COUNT(AUTO) 3.89 MIL/uL (4.5-6.0)
[2018-11-20 08:00] VITALS: BP 128/68
[2018-11-20] MEDS: LINEZOLID 600 MG TABLET PO SCH ×2 (08:59→21:09)
[2018-11-20] MEDS: LACTOBACILLUS RHAMNOSUS GG 1 EACH CAP.SPRINK PO SCH ×2 (09:00→16:48)
[2018-11-20] MEDS: PROSOURCE / PROSTAT (PYXIS) 30 ML UDC GT SCH ×3 (09:00→16:48)
[2018-11-20] MEDS: HYDROGEL DRESSING 90 GM TUBE TP SCH ×2 (09:20→21:13)
[2018-11-20] MEDS: DAKINS QUARTER STRENGTH (0.125%) 480 ML BOTTLE TOP SCH (09:20)
[2018-11-20] MEDS: CLOTRIMAZOLE 1% 15 GM TUBE TP SCH ×2 (09:21→17:30)
[2018-11-20] MEDS: KETOROLAC TROMETHAMINE INJ 30 MG/ML VIAL IV PRN ×2 (11:38→19:51)
[2018-11-20] MEDS: IV NS 0.9% 1,000 ML IV PRN (13:32)
[2018-11-20] MEDS: LEVOFLOXACIN (500MG) 500 MG TABLET PO SCH (18:31)
--- NOTE | 2018-11-20 19:30 | NUR ---
MS RN OPENING NOTES PATIENT ON BED, AWAKE/ALERT X4, ROOM AIR, TOLERATED WELL, NO SOH NOTED, PATIENT REQUESTED HIS PAIN MEDICATION FOR HEADACHE AND NECK PAIN. RIGHT ARM PICC LINE 3 LUMEN, NO FILTRATION NOTED. ALL SAFETY MEASURES ARE IN PLACE, BED LOCKED/LOW POSITION, CALL LIGHT WITHIN REACHED. WILL CONTINUES CARE
--- NOTE | 2018-11-20 19:44 | NUR ---
MS RN OPENING NOTES PATIENT ON BED, AWAKE/ALERT X4, ROOM AIR, TOLERATED WELL, NO SOH NOTED, PATIENT REQUESTED HIS PAIN MEDICATION FOR HEADACH. RIGHT ARM PICC LINE 3 LUMEN, NO FILTRATION NOTED. ALL SAFETY MEASURES ARE IN PLACE, BED LOCKED/LOW POSITION, CALL LIGHT WITHIN REACHED. WILL CONTINUES CARE
--- NOTE | 2018-11-20 19:45 | NUR ---
MS RN CLOSING NOTES patient at bed awake and oriented x 4. On RA, no respiratory distress noted. no SOB. Medicated for pain, noted effective. All wound care carried out as ordered. All needs attended. Kept on bed clean, dry and comfortable. On fall and aspiration precautions. bed at the lowest and locked position. side rails up X3 and padded. Call light within the reach. HOB elevated. Endorsed to the next shift for cont' POC.
[2018-11-20] MEDS: AMIKACIN 1,000 MG in IV D5W 100 ML IV SCH (21:09)
[2018-11-21] MEDS: HYDROMORPHONE INJ 2 MG/ML DISP.SYRIN IM/IV PRN ×6 (02:49→20:52)
[2018-11-21] MEDS: KETOROLAC TROMETHAMINE INJ 30 MG/ML VIAL IV PRN (05:21)
[2018-11-21 06:35] LABS: BASOPHILS # (AUTO) 0.1 /CMM (0.0-0.2); BASOPHILS % (AUTO) 0.9 % (0.0-2.0); HEMATOCRIT 28 % (39-51); HEMOGLOBIN 8.8 g/dL (13.5-17.5); LYMPHOCYTES % (AUTO) 16.8 % (20.0-44.0); MEAN CORPUSCULAR HGB CONC 31 g/dl (31.0-36.0); MEAN CORPUSCULAR VOLUME 75 fL (80-96); MONOCYTES # (AUTO) 0.8 /CMM (0.1-1.30); MONOCYTES % (AUTO) 6.6 % (2.0-12.0); NEUTROPHILS # (AUTO) 8.7 /CMM (1.8-8.9); NEUTROPHILS % (AUTO) 72.7 % (43.0-81.0); PLATELET COUNT (AUTO) 548 /CMM (150-450)
[2018-11-21 07:10] LABS: CALCIUM, SERUM 8.7 mg/dL (8.5-10.1); CREATININE 1.2 mg/dL (0.6-1.3); MAGNESIUM 1.6 mg/dL (1.8-2.4); PHOSPHORUS 3.6 mg/dL (2.5-4.9)
--- NOTE | 2018-11-21 07:30 | NUR ---
RN OPENING NOTES RECEIVED PATIENT RESTING IN BED, NO S/SX OF DISTRESS. HE IS AOX4, IN A GOOD MOOD. HE IS ON RA AND IS NOT EXPERIENCING SOB. HE HAS A SUPRAPUBIC CATHETER, PATENT. HE IS ON A REGULAR DIET. BED ALARM IS ON. HE HAS A RA PICC TRIPLE LUMEN INFUSING NS AT 75ML/HR. SAFETY MEASURES HAVE BEEN IMPLEMENTED, CALL LIGHT WITHIN REACH, BED IN LOWEST AND LOCKED POSITION, WILL CONTINUE TO MONITOR FOR ANY CHANGES
--- NOTE | 2018-11-21 07:48 | NUR ---
MS RN CLOSING NOTES PATIENT ON BED, AWAKE/ALERT X4, ROOM AIR, TOLERATED WELL, NO SOH NOTED, PATIENT DENIES PAIN AT THIS TIME. RIGHT ARM PICC LINE 3 LUMEN, NO FILTRATION NOTED. ALL SAFETY MEASURES ARE IN PLACE, BED LOCKED/LOW POSITION, CALL LIGHT WITHIN REACHED. WILL ENDORSE TO AM NURSE FOR CONTINUES CARE.
[2018-11-21 08:00] VITALS: BP 118/63
[2018-11-21] MEDS: LINEZOLID 600 MG TABLET PO SCH ×2 (08:34→20:52)
[2018-11-21] MEDS: LACTOBACILLUS RHAMNOSUS GG 1 EACH CAP.SPRINK PO SCH ×2 (08:34→16:14)
[2018-11-21] MEDS: PROSOURCE / PROSTAT (PYXIS) 30 ML UDC GT SCH ×3 (08:34→16:14)
[2018-11-21] MEDS: DAKINS QUARTER STRENGTH (0.125%) 480 ML BOTTLE TOP SCH (10:26)
[2018-11-21] MEDS ORDERED: LIDOCAINE 1%-EPI 1:100,000 20 ML VIAL TP ONE (10:30)
[2018-11-21] MEDS: CLOTRIMAZOLE 1% 15 GM TUBE TP SCH ×2 (10:38→16:15)
[2018-11-21] MEDS: HYDROGEL DRESSING 90 GM TUBE TP SCH ×2 (10:38→21:04)
--- NOTE | 2018-11-21 11:00 | NUR ---
SACRAL WOUND DEBRIDEMENT DONE WITH GARY SETH. PATIENT WAS PREMEDICATED WITH 2MG DILAUDID, LIDOCAINE WAS APPLIED TO THE AREA. PACKED WITH DANKIN'S SOLUTION GAUZE, COVERED WITH ABDOMINAL PAD
[2018-11-21] MEDS: Magnesium 1GM/D5W 100ML PREMIX 100 ML IV SCH ×2 (12:01→13:24)
[2018-11-21] MEDS: LEVOFLOXACIN (500MG) 500 MG TABLET PO SCH (17:41)
--- NOTE | 2018-11-21 19:10 | NUR ---
RN CLOSING NOTES PATIENT IS RESTING IN BED COMFORTABLY. HE IS AOX4 BUT UNABLE TO AMBULATE. HE IS ON CONTACT AND ASPIRATION PRECAUTIONS. HE HAS BEEN ON RA AND HAS BEEN SATING WELL THROUGHOUT THE DAY. HE HAS NO EDEMA. SUPRAPUBIC CATHETER DRAINED 1,300 ML OF URINE. HE HAS MULTIPLE WOUNDS THROUGHOUT HIS BODY. HIS SACRAL WOUND HAD DEBRIDEMENT DONE TODAY. HE HAS BEEN MEDICATED WITH DILAUDID 3 TIMES TODAY. HE IS ON A REGULAR DIET. HE HAS A RIGHT ARM TRIPLE LUMEN PICC. MAG WAS LOW AND WAS REPLACED. DRESSING ON LOWER EXTREMITIES HAVE BEEN CHANGED. SAFETY MEASURES HAVE BEEN IMPLEMENTED, CALL LIGHT WITHIN REACH, BED IN LOWEST AND LOCKED POSITION, SIDE RAILS UP X3, WILL ENDORSE TO NIGHTSHIFT NURSE
--- NOTE | 2018-11-21 19:15 | NUR ---
PATIENT HAS BEEN ENDORSED TO NIGHTSHIFT RN
--- NOTE | 2018-11-21 19:30 | NUR ---
RECEIVED PATIENT IN BED AWAKE. AO X 3, ABLE TO MAKE NEEDS KNOWN. NO ACUTE DISTRESS NOTED. MONITORED FOR PAIN. IV SITE PATENT, INTACT; IVF INFUSING ORDERED. SUPRAPUBIC CATH PATENT, INTACT; DRAINING CLEAR YELLOW URINE. SAFETY REMINDERS GIVEN. ON LOW BED WITH BILATERAL UPPER SIDE RAILS UP. CALL LOPEZ WITHIN EASY REACH. WILL CONTINUE TO MONITOR.
[2018-11-21 20:00] VITALS: BP 119/63
[2018-11-21] MEDS: IV NS 0.9% 1,000 ML IV PRN (20:58)
--- NOTE | 2018-11-21 22:00 | NUR ---
AMIKACIN TROUGH RESULT STILL PENDING. AMIKACIN IV ON HOLD AT THIS TIME.
[2018-11-21] MEDS: NICOTINE PATCH (14MG) 14 MG PATCH.TD24 TD SCH (22:09)
--- NOTE | 2018-11-22 00:30 | NUR ---
FOLLOWED UP WITH LAB REGARDING AMIKACIN RESULT; STILL PENDING
[2018-11-22] MEDS: HYDROMORPHONE INJ 2 MG/ML DISP.SYRIN IM/IV PRN ×6 (00:56→21:34)
[2018-11-22] MEDS: AMIKACIN 1,000 MG in IV D5W 100 ML IV SCH (02:02)
[2018-11-22 04:00] VITALS: BP 108/71
--- NOTE | 2018-11-22 06:00 | NUR ---
PATIENT ASLEEP, EASILY AROUSABLE. RESPIRATIONS EVEN. NO SIGNS OF PAIN NOTED. DUE MED GIVEN WITH NO ASE NOTED. IVF INFUSING ORDERED. NEEDS ATTENDED. TURNED AND REPOSITIONED Q 2 HOURS. KEPT CLEAN AND DRY. SAFETY REMINDERS AND COMFORT MEASURES IN PLACE. WILL GIVE REPORT TO DAY SHIFT FOR CONTINUITY OF CARE.
[2018-11-22 06:33] LABS: BASOPHILS # (AUTO) 0.2 /CMM (0.0-0.2); BASOPHILS % (AUTO) 1.2 % (0.0-2.0); EOSINOPHILS % (AUTO) 2.8 % (0.0-6.0); HEMATOCRIT 30 % (39-51); HEMOGLOBIN 9.4 g/dL (13.5-17.5); LYMPHOCYTES # (AUTO) 2.4 /CMM (0.8-4.8); LYMPHOCYTES % (AUTO) 17.1 % (20.0-44.0); MEAN CORPUSCULAR HGB CONC 31 g/dl (31.0-36.0); MEAN CORPUSCULAR VOLUME 75 fL (80-96); MONOCYTES # (AUTO) 0.9 /CMM (0.1-1.30); MONOCYTES % (AUTO) 6.1 % (2.0-12.0); NEUTROPHILS # (AUTO) 10.3 /CMM (1.8-8.9); NEUTROPHILS % (AUTO) 72.8 % (43.0-81.0); PLATELET COUNT (AUTO) 623 /CMM (150-450); RED BLOOD CELL COUNT(AUTO) 3.99 MIL/uL (4.5-6.0); WHITE BLOOD COUNT (AUTO) 14.1 K/uL (4.3-11.0)
[2018-11-22 07:30] LABS: CALCIUM, SERUM 8.5 mg/dL (8.5-10.1); CREATININE 1.1 mg/dL (0.6-1.3); MAGNESIUM 1.8 mg/dL (1.8-2.4); PHOSPHORUS 3.9 mg/dL (2.5-4.9); POTASSIUM 4.2 mmol/L (3.5-5.1)
[2018-11-22 08:00] VITALS: BP 125/72
[2018-11-22] MEDS: LACTOBACILLUS RHAMNOSUS GG 1 EACH CAP.SPRINK PO SCH ×2 (09:26→17:25)
[2018-11-22] MEDS: DAKINS QUARTER STRENGTH (0.125%) 480 ML BOTTLE TOP SCH (09:26)
[2018-11-22] MEDS: HYDROGEL DRESSING 90 GM TUBE TP SCH ×2 (09:26→21:33)
[2018-11-22] MEDS: CLOTRIMAZOLE 1% 15 GM TUBE TP SCH ×2 (09:27→17:25)
[2018-11-22] MEDS: PROSOURCE / PROSTAT (PYXIS) 30 ML UDC GT SCH ×3 (09:27→17:24)
[2018-11-22] MEDS: LINEZOLID 600 MG TABLET PO SCH ×2 (09:31→21:35)
--- NOTE | 2018-11-22 11:04 | NUR ---
MS RN OPENING NOTES PATIENT RECEIVED IN BED AWAKE. AOX4 NO SOB OR ACUTE DISTRESS NOTED. SUPRAPUBIC CATHETER INTACT AND PATENT WITH 1,400 ML OF CLEAR YELLOW URINE. R ARM TRIPLE LUMEN PICC INTACT AND PATENT. SAFETY MEASURES IN PLACE, CALL LIGHT WITHIN REACH, BED IN LOWEST AND LOCKED POSITION, SIDE RAILS UP X3, WILL CONTINUE TO MONITOR.
[2018-11-22] MEDS: IV NS 0.9% 1,000 ML IV PRN (11:58)
[2018-11-22] MEDS ORDERED: diphenhydrAMINE HCL 50 MG/ML VIAL IV PRN (12:00)
[2018-11-22] MEDS: KETOROLAC TROMETHAMINE INJ 30 MG/ML VIAL IV PRN (12:33)
[2018-11-22] MEDS: CEFEPIME 1 GM in IV D5W 50 ML IV SCH (13:27)
[2018-11-22] MEDS ORDERED: D5W IV SCH (14:00)
[2018-11-22] MEDS ORDERED: TOBRAMYCIN IV SCH (14:00)
[2018-11-22] MEDS ORDERED: FEE PK DOSING 1 MIN EA MC ONE (14:02)
--- NOTE | 2018-11-22 15:25 | NUR ---
MS RN NOTE WOUND CARE COMPLETED ORDERED. PA COMPLETED CARE ON BOTH LOWER EXTREMITIES AND SACRAL/BUTTOCKS REGIONS. RN ASSISTED FOR BOTH PROCEDURES. DRESSINGS CLEAN DRY AND INTACT. PATIENT PAIN LEVELS WELL MANAGED THROUGHOUT. LINENS CHANGED.
[2018-11-22 16:00] VITALS: BP 115/70
--- NOTE | 2018-11-22 16:09 | NUR ---
MS RN NOTE NEW BLISTER LIKE LESIONS FOUND ON PATIENT R BUTTOCKS AND LOWER BACK. LESIONS ARE INTACT WITH NO DRAINAGE, BLEEDING OR DISCHARGE OF ANY TYPE. WOUND CARE CAREER DEVELOPMENT ASSOCIATE PRESENT AT THE TIME AND NOTIFIED DR. Jes YANG. PHOTOS TAKEN, AREA CLEANED AND DRIED. WOUND CARE PA TO FOLLOW UP.
--- NOTE | 2018-11-22 19:05 | NUR ---
MS RN NOTE RECEIVED PT IN STABLE CONDITION A/O X4, CURRENTLY IN BED WATCHING TV. NO SIGNS OF SOB OR DISTRESS, NO COMPLAINTS OF PAIN. SUPRAPUBIC CATH IN PLACE WITH ADEQUATE URINE DRAINING. DOUGLAS PICC IS IN PLACE WITH IVF INFUSING. ALL CURRENT NEEDS ATTENDED TO. BED LOW, LOCKED, UPPER RAILS UP, ISOLATIONS PRECAUTIONS IN PLACE, WILL REPOSITION PT PER UNIT PROTOCOL, CALL LIGHT WITHIN REACH. WILL CONT. TO MONITOR.
--- NOTE | 2018-11-22 19:06 | NUR ---
MS RN CLOSING NOTES PATIENT IN BED AWAKE. AOX4 NO SOB OR ACUTE DISTRESS NOTED. SUPRAPUBIC CATHETER INTACT AND PATENT WITH 1,250 ML OF CLEAR YELLOW URINE. R ARM TRIPLE LUMEN PICC INTACT AND PATENT. ALL WOUND CARE COMPLETED DURING SHIFT. NO SIGNIFICANT CHANGES DURING SHIFT. PAIN MANAGED WELL THROUGHOUT SHIFT. SAFETY MEASURES IN PLACE, CALL LIGHT WITHIN REACH, BED IN LOWEST AND LOCKED POSITION, SIDE RAILS UP X3. CARE ENDORSED TO INSURANCE POLICY CLERK RN. .
[2018-11-22 20:00] VITALS: BP 97/62
[2018-11-22] MEDS: NICOTINE PATCH (14MG) 14 MG PATCH.TD24 TD SCH (21:35)
[2018-11-23] MEDS: CEFEPIME 1 GM in IV D5W 50 ML IV SCH ×2 (00:26→13:28)
[2018-11-23] MEDS: HYDROMORPHONE INJ 2 MG/ML DISP.SYRIN IM/IV PRN ×6 (02:54→20:32)
[2018-11-23] MEDS: IV NS 0.9% 1,000 ML IV PRN ×2 (02:58→19:21)
[2018-11-23 04:00] VITALS: BP 123/73
--- NOTE | 2018-11-23 06:22 | NUR ---
MS RN NOTE PT IN STABLE CONDITION A/O X4, CURRENTLY IN BED WATCHING TV. NO SIGNS OF SOB OR DISTRESS, NO COMPLAINTS OF PAIN. SUPRAPUBIC CATH IN PLACE WITH ADEQUATE URINE DRAINING. DOUGLAS PICC IS IN PLACE WITH IVF INFUSING. ALL CURRENT NEEDS ATTENDED TO. BED LOW, LOCKED, UPPER RAILS UP, ISOLATION PRECAUTIONS IN PLACE, PT REPOSITIONED PER UNIT PROTOCOL, CALL LIGHT WITHIN REACH. WILL CONT. TO MONITOR AND ENDORSE TO NEXT SHIFT FOR SOM.
[2018-11-23 06:30] LABS: BASOPHILS # (AUTO) 0.1 /CMM (0.0-0.2); BASOPHILS % (AUTO) 1.1 % (0.0-2.0); EOSINOPHILS % (AUTO) 3.3 % (0.0-6.0); HEMATOCRIT 30 % (39-51); HEMOGLOBIN 9.5 g/dL (13.5-17.5); LYMPHOCYTES # (AUTO) 2.5 /CMM (0.8-4.8); LYMPHOCYTES % (AUTO) 19.5 % (20.0-44.0); MEAN CORPUSCULAR HGB CONC 32 g/dl (31.0-36.0); MEAN CORPUSCULAR VOLUME 75 fL (80-96); MONOCYTES # (AUTO) 0.7 /CMM (0.1-1.30); MONOCYTES % (AUTO) 5.5 % (2.0-12.0); NEUTROPHILS # (AUTO) 9.1 /CMM (1.8-8.9); NEUTROPHILS % (AUTO) 70.6 % (43.0-81.0); PLATELET COUNT (AUTO) 580 /CMM (150-450); RED BLOOD CELL COUNT(AUTO) 4.01 MIL/uL (4.5-6.0); WHITE BLOOD COUNT (AUTO) 12.8 K/uL (4.3-11.0)
[2018-11-23 06:46] LABS: CALCIUM, SERUM 8.3 mg/dL (8.5-10.1); CREATININE 1.1 mg/dL (0.6-1.3); MAGNESIUM 1.7 mg/dL (1.8-2.4); PHOSPHORUS 3.9 mg/dL (2.5-4.9); POTASSIUM 4.1 mmol/L (3.5-5.1)
--- NOTE | 2018-11-23 07:20 | NUR ---
MS RN OPENING NOTES RECEIVED PT IN BED, ASLEEP, EASILY AROUSED, A/O X4. PT TOLERATING RA, WITH NO ACUTE RESPIRATORY DISTRESS NOTED. PT DENIES PAIN OR DISCOMFORT AT THIS TIME. PT DENIES ANY CONCERNS OR QUESTIONS WELL. IVF NS AT 75 ML/HR TO DOUGLAS PICC, INTACT AND FLUID INFUSING WELL. HOB KEPT ELEVATED. PT'S KEPT COMFORTABLE. PT'S BED IN LOWEST, LOCKED POSITION WITH SR X3. CALL LIGHT KEPT WITHIN REACH WILL CONTINUE PLAN OF CARE.
[2018-11-23 08:00] VITALS: BP 123/69
[2018-11-23] MEDS: LINEZOLID 600 MG TABLET PO SCH ×2 (09:07→20:32)
[2018-11-23] MEDS: LACTOBACILLUS RHAMNOSUS GG 1 EACH CAP.SPRINK PO SCH ×2 (09:07→17:04)
[2018-11-23] MEDS: PROSOURCE / PROSTAT (PYXIS) 30 ML UDC GT SCH ×3 (09:09→17:04)
[2018-11-23] MEDS: HYDROGEL DRESSING 90 GM TUBE TP SCH ×2 (09:46→21:00)
[2018-11-23] MEDS: DAKINS QUARTER STRENGTH (0.125%) 480 ML BOTTLE TOP SCH (09:46)
[2018-11-23] MEDS: CLOTRIMAZOLE 1% 15 GM TUBE TP SCH ×2 (09:47→17:00)
[2018-11-23] MEDS: Magnesium 1GM/D5W 100ML PREMIX 100 ML IV SCH ×2 (10:05→11:04)
--- NOTE | 2018-11-23 14:30 | NUR ---
MS RN NOTES WOUND NURSE'S ASSISTANT AND DNP/TS DEBRIDED LEFT BUTTOCK WOUND. BONE SPECIMEN COLLECTED AND SENT TO LAB FOR PATHOLOGY; FORM SIGNED. SPECIMEN FOR BIOPSY AND CULTURE. WILL INFORM INCOMING NIGHT NURSE WELL.
--- NOTE | 2018-11-23 14:45 | NUR ---
MS RN NOTES MD/TS AWARE WELL OF THE BUMPS TO LOWER BACK AND BUTTOCK AREA IS NOW GONE. PT MADE AWARE WELL.
[2018-11-23 16:00] VITALS: BP 125/78
--- NOTE | 2018-11-23 18:39 | NUR ---
MS RN CLOSING NOTES PT IN BED, INTERMITTENTLY DOZING OFF, EASILY AROUSED, A/O X4. PT TOLERATING RA, WITH NO ACUTE RESPIRATORY DISTRESS NOTED. PT DENIES PAIN OR DISCOMFORT AT THIS TIME. PT DENIES ANY CONCERNS OR QUESTIONS WELL. IVF NS AT 75 ML/HR TO DOUGLAS PICC, INTACT AND FLUID INFUSING WELL. HOB KEPT ELEVATED. PT'S KEPT COMFORTABLE. PT'S BED IN LOWEST, LOCKED POSITION WITH SR X3. CALL LIGHT KEPT WITHIN REACH WILL CONTINUE PLAN OF CARE.
--- NOTE | 2018-11-23 19:30 | NUR ---
MS/RN RECEIVE PATIENT AWAKE, ALERT, ORIENTED, COMFORTABLE, NO DISTRESS NOTED, CALL LIGHT IN REACH. WILL MONITOR.
[2018-11-23 20:00] VITALS: BP 103/75
--- NOTE | 2018-11-23 22:52 | NUR ---
MS/RN HYDROGEL WAS NOT ADMINISTERED AT 2200, WOUND WAS JUST DEBRIDED THIS PM.
[2018-11-23] MEDS: NICOTINE PATCH (14MG) 14 MG PATCH.TD24 TD SCH (22:59)
[2018-11-24] MEDS: HYDROMORPHONE INJ 2 MG/ML DISP.SYRIN IM/IV PRN ×7 (00:10→21:43)
[2018-11-24] MEDS: CEFEPIME 1 GM in IV D5W 50 ML IV SCH ×2 (00:56→12:38)
[2018-11-24] MEDS ORDERED: TOBRAMYCIN IV SCH (02:00)
[2018-11-24] MEDS ORDERED: D5W IV SCH (02:00)
[2018-11-24 04:00] VITALS: BP 130/70
--- NOTE | 2018-11-24 06:00 | NUR ---
MS/RN PATIENT IS STILL SLEEPING, AROUSABLE, APPEAR COMFORTABLE, NO SIGNS OF DISTRESS NOTED. MORNING CARE HAS BEEN DONE, DRESSING WAS CHANGED AT LEFT BUTTOCK WOUND PER ORDER, TOTAL LINEN CHANGE WAS DONE, REPOSITIONED TO COMFORT. ALL NEEDS ATTENDED AT THIS TIME. WILL CONTINUE TO MONITOR.
[2018-11-24 07:17] LABS: CALCIUM, SERUM 8.6 mg/dL (8.5-10.1); MAGNESIUM 1.8 mg/dL (1.8-2.4); PHOSPHORUS 4.3 mg/dL (2.5-4.9); POTASSIUM 4.1 mmol/L (3.5-5.1)
[2018-11-24 08:00] VITALS: BP 113/57
--- NOTE | 2018-11-24 08:00 | NUR ---
MS1/RN AM SHIFT INITIAL NOTES RECEIVED PT ASLEEP IN BED, EASILY AROUSED, PT A/O X 4, COMPLAINT OF PAIN RATED 8/10 ON HIS THIGHS. NO ACUTE CHANGE OF CONDITION OR FEVER. ON ROOM AIR SATURATING @ 95%, LUNG SOUNDS CLEAR, RESPIRATIONS EVEN & UNLABORED, PICC LINE PATENT WITH NO S/S OF INFECTION, WITH ON GOING INFUSION OF NS @ 75CC/HR. SUPRAPUBIC CATHETER INTACT, PATENT WITH YELLOW URINE OUTPUT. SCHEDULED AM MEDS TO BE GIVEN, TOGETHER WITH PRN PAIN MEDICATION. CL WITHIN REACHED, SAFETY MAINTAINED AND ISOLATION OBSERVED. ON GOING MONITORING.
[2018-11-24] MEDS: PROSOURCE / PROSTAT (PYXIS) 30 ML UDC GT SCH ×3 (08:08→17:58)
[2018-11-24] MEDS: LINEZOLID 600 MG TABLET PO SCH ×2 (08:08→21:42)
[2018-11-24] MEDS: LACTOBACILLUS RHAMNOSUS GG 1 EACH CAP.SPRINK PO SCH ×2 (08:08→17:58)
[2018-11-24] MEDS: HYDROGEL DRESSING 90 GM TUBE TP SCH (08:09)
[2018-11-24] MEDS: DAKINS QUARTER STRENGTH (0.125%) 480 ML BOTTLE TOP SCH (08:09)
[2018-11-24] MEDS: CLOTRIMAZOLE 1% 15 GM TUBE TP SCH ×2 (08:11→17:59)
[2018-11-24 08:28] LABS: BASOPHILS # (AUTO) 0.1 /CMM (0.0-0.2); BASOPHILS % (AUTO) 1.1 % (0.0-2.0); EOSINOPHILS % (AUTO) 2.7 % (0.0-6.0); HEMATOCRIT 32 % (39-51); HEMOGLOBIN 10.1 g/dL (13.5-17.5); LYMPHOCYTES # (AUTO) 2.4 /CMM (0.8-4.8); MEAN CORPUSCULAR HGB CONC 32 g/dl (31.0-36.0); MEAN CORPUSCULAR VOLUME 75 fL (80-96); MONOCYTES # (AUTO) 0.7 /CMM (0.1-1.30); MONOCYTES % (AUTO) 5.5 % (2.0-12.0); NEUTROPHILS # (AUTO) 9.7 /CMM (1.8-8.9); NEUTROPHILS % (AUTO) 72.7 % (43.0-81.0); PLATELET COUNT (AUTO) 562 /CMM (150-450); WHITE BLOOD COUNT (AUTO) 13.3 K/uL (4.3-11.0)
[2018-11-24] MEDS: IV NS 0.9% 1,000 ML IV PRN (11:21)
[2018-11-24 16:00] VITALS: BP 98/50
[2018-11-24] MEDS ORDERED: BISACODYL SUPP (10 MG) 10 MG/SUPP.RECT SUPP.RECT RC PRN (19:00)
--- NOTE | 2018-11-24 19:30 | NUR ---
MS1/RN AM SHIFT END NOTES NO ACUTE CHANGE OF CONDITION NOTED DURING THE SHIFT. ALL NEEDS MET. PT ENDORSED TO PM NURSE TO CONTINUE CARE.
[2018-11-24 20:00] VITALS: BP 105/62
--- NOTE | 2018-11-24 20:00 | NUR ---
MS RN NOTES RECEIVED PATIENT ASLEEP IN BED WITH NO DISTRESS NOTED. CALL LIGHT WITHIN REACH. PERIPHERAL LINE INTACT AND PATENT. CONTACT ISOLATION OBSERVED AND MAINTAINED. BED IN LOW LOCK SETTING. ALL BELONGINGS KEPT NEAR BEDSIDE. WILL CONTINUE TO MONITOR.
[2018-11-24] MEDS: NICOTINE PATCH (14MG) 14 MG PATCH.TD24 TD SCH (21:42)
[2018-11-25] MEDS: CEFEPIME 1 GM in IV D5W 50 ML IV SCH ×2 (01:10→13:12)
[2018-11-25] MEDS: IV NS 0.9% 1,000 ML IV PRN ×2 (01:12→17:38)
[2018-11-25] MEDS: HYDROGEL DRESSING 90 GM TUBE TP SCH ×3 (01:18→22:26)
[2018-11-25] MEDS: HYDROMORPHONE INJ 2 MG/ML DISP.SYRIN IM/IV PRN ×6 (01:20→22:24)
[2018-11-25 04:00] VITALS: BP 133/59
--- NOTE | 2018-11-25 06:35 | NUR ---
MS RN NOTES PATIENT ASLEEP IN BED WITH NO DISTRESS NOTED. CALL LIGHT WITHIN REACH. DOUGLAS PICC LINE INTACT AND PATENT. ALL DUE MEDS GIVEN ORDERED WITH NO ASE NOTED. NO FURTHER C/O PAIN OR DISCOMFORT. CONTACT ISOLATION OBSERVED AND MAINTAINED. BED IN LOW LOCK SETTING. ALL BELONGINGS KEPT NEAR BEDSIDE. WILL CONTINUE TO MONITOR.
[2018-11-25 06:39] LABS: BASOPHILS # (AUTO) 0.2 /CMM (0.0-0.2); BASOPHILS % (AUTO) 1.3 % (0.0-2.0); EOSINOPHILS % (AUTO) 2.4 % (0.0-6.0); HEMATOCRIT 32 % (39-51); HEMOGLOBIN 10.4 g/dL (13.5-17.5); LYMPHOCYTES # (AUTO) 2.5 /CMM (0.8-4.8); LYMPHOCYTES % (AUTO) 18.4 % (20.0-44.0); MEAN CORPUSCULAR HGB CONC 32 g/dl (31.0-36.0); MEAN CORPUSCULAR VOLUME 75 fL (80-96); MONOCYTES # (AUTO) 0.8 /CMM (0.1-1.30); MONOCYTES % (AUTO) 5.7 % (2.0-12.0); NEUTROPHILS # (AUTO) 9.8 /CMM (1.8-8.9); NEUTROPHILS % (AUTO) 72.2 % (43.0-81.0); PLATELET COUNT (AUTO) 620 /CMM (150-450); RED BLOOD CELL COUNT(AUTO) 4.31 MIL/uL (4.5-6.0); WHITE BLOOD COUNT (AUTO) 13.5 K/uL (4.3-11.0)
[2018-11-25 06:49] LABS: CALCIUM, SERUM 8.6 mg/dL (8.5-10.1); MAGNESIUM 1.7 mg/dL (1.8-2.4); PHOSPHORUS 3.7 mg/dL (2.5-4.9); POTASSIUM 3.6 mmol/L (3.5-5.1)
[2018-11-25 08:00] VITALS: BP 119/72
--- NOTE | 2018-11-25 08:00 | NUR ---
MS1/RN AM SHIFT INITIAL NOTES RECEIVED PT AWAKE IN BED, EASILY AROUSED, PT A/O X 4, NO COMPLAINT OF PAIN AT THIS TIME. NO ACUTE DISTRESS OR CHANGE OF CONDITION NOTED. ON ROOM AIR SATURATING @ 94%, LUNG SOUNDS CLEAR, RESPIRATIONS EVEN & UNLABORED, PICC LINE PATENT WITH NO S/S OF INFECTION, WITH ON GOING INFUSION OF NS @ 75CC/HR. SUPRAPUBIC CATHETER INTACT, PATENT WITH YELLOW URINE OUTPUT. SCHEDULED AM MEDS TO BE GIVEN, CL WITHIN REACHED, SAFETY MAINTAINED AND ISOLATION OBSERVED. ON GOING MONITORING.
[2018-11-25] MEDS ORDERED: SILVER NITRATE APPLICATOR 1 EA BOX TP ONE (08:30)
[2018-11-25] MEDS ORDERED: LIDOCAINE 1%-EPI 1:100,000 50 ML VIAL IJ ONE (08:30)
[2018-11-25] MEDS: LACTOBACILLUS RHAMNOSUS GG 1 EACH CAP.SPRINK PO SCH ×2 (09:11→17:31)
[2018-11-25] MEDS: PROSOURCE / PROSTAT (PYXIS) 30 ML UDC GT SCH ×3 (09:12→17:31)
[2018-11-25] MEDS: LINEZOLID 600 MG TABLET PO SCH ×2 (09:12→22:26)
[2018-11-25] MEDS: CLOTRIMAZOLE 1% 15 GM TUBE TP SCH ×2 (09:13→17:32)
[2018-11-25] MEDS: DAKINS QUARTER STRENGTH (0.125%) 480 ML BOTTLE TOP SCH (09:13)
--- NOTE | 2018-11-25 10:35 | NUR ---
MS1/RN PT EVAL PT SEEN & EVALUATED BY PHYSICAL THERAPIST.
--- NOTE | 2018-11-25 10:36 | NUR ---
ERP MANAGER WOUND RN SPOKE TO [facility] VAC REP JOVANI AND PER JOVANI, VAC THERAPY MAY BE STARTED ON PATIENT PATIENT HAS BEEN RECEIVING IV ANTIBIOTICS X 13 DAYS, AND HAS HAD MULTIPLE DEBRIDEMENTS TO THE LEFT ISCHIAL WOUND. DR YANG IN AGREEMENT WITH STARTING VAC THERAPY FOR PATIENT. DR JULIO JAVED ALSO AWARE AND IN AGREEMENT WITH STARTING VAC THERAPY FOR PATIENT AND ORDERS RECEIVED FOR VAC THERAPY. SEE WOUND VAC ORDERS.
[2018-11-25] MEDS: Magnesium 1GM/D5W 100ML PREMIX 100 ML IV SCH ×2 (11:54→13:11)
[2018-11-25] MEDS ORDERED: IV NS 0.9% 250 ML IV PRN (13:00)
--- NOTE | 2018-11-25 13:45 | NUR ---
MS1/RN SUPRAPUBIC CATHETER ASSISTED DR. YANG IN REPLACING NEW SUPRAPUBIC CATHETER. PT TOLERATED PROCEDURE.
[2018-11-25] MEDS ORDERED: TOBR300A5 IH ×2 (14:23→23:47)
[2018-11-25] MEDS ORDERED: Hydrogel Dressing TP (14:23)
[2018-11-25] MEDS ORDERED: Linezolid PO (14:23)
[2018-11-25] MEDS ORDERED: NICO-676 TD (14:23)
[2018-11-25] MEDS ORDERED: Prosource GT (14:23)
[2018-11-25] MEDS ORDERED: CLOT15CR35 TP (14:23)
[2018-11-25] MEDS ORDERED: CEFE2VIA11 IV (14:26)
--- NOTE | 2018-11-25 15:00 | NUR ---
MS1/RN ROUNDS - WOUND VAC PT S/P WOUND VAC PLACEMENT.
[2018-11-25 16:00] VITALS: BP_SYST 105; BP_SYST 152; BP_DIAS 64; BP_DIAS 80
[2018-11-25] MEDS ORDERED: D5W IV SCH (16:00)
[2018-11-25] MEDS ORDERED: TOBRAMYCIN IV SCH (16:00)
[2018-11-25] MEDS ORDERED: LEVOFLOXACIN (500MG) 500 MG TABLET PO SCH (18:00)
[2018-11-25] MEDS ORDERED: DOSING PER PHARMACY-AMIKACI IV XX PRN (18:00)
[2018-11-25] MEDS ORDERED: FEE PK DOSING 1 MIN EA MC ONE (18:34)
[2018-11-25 20:00] VITALS: BP 123/67
--- NOTE | 2018-11-25 20:00 | NUR ---
ÓSCAR PM SHIFT RN INITIAL NOTES RECEIVED PT REPORT FROM AM RN. PATIENT IS AWAKE IN BED, A/O X 4, NO COMPLAINT OF ACUTE PAIN AT THIS TIME. NO ACUTE DISTRESS NOTED AT THIS TIME. ON ROOM AIR SATURATING @ 96%, LUNG SOUNDS CLEAR, RESPIRATIONS EVEN & UNLABORED, RIGHT ARM PICC LINE PATENT WITH NO S/S OF INFECTION, WITH ON GOING INFUSION OF NS @ 75CC/HR. SUPRAPUBIC CATHETER INTACT, PATENT WITH YELLOW URINE OUTPUT. SCHEDULED PM MEDS TO BE GIVEN, CALL LIGHT WITHIN REACHED, SAFETY MAINTAINED AND ISOLATION OBSERVED. PATIENT IS ON GOING MONITORING.
--- NOTE | 2018-11-25 20:00 | NUR ---
MS1/RN AM SHIFT NOTES ALL NEEDS MET. NO ACUTE CHANGE OF CONDITION NOTED DURING THE SHIFT. PT ENDORSED TO PM NURSE TO CONTINUE CARE.
[2018-11-25] MEDS: AMIKACIN IV SCH (22:25)
[2018-11-25] MEDS: D5W IV SCH (22:25)
[2018-11-25] MEDS: NICOTINE PATCH (14MG) 14 MG PATCH.TD24 TD SCH (22:26)
[2018-11-26] MEDS: HYDROMORPHONE INJ 2 MG/ML DISP.SYRIN IM/IV PRN ×4 (01:36→11:58)
[2018-11-26 04:00] VITALS: BP 116/63
[2018-11-26] MEDS: D5W IV SCH (04:53)
[2018-11-26] MEDS: AMIKACIN IV SCH (04:53)
[2018-11-26 06:24] LABS: BASOPHILS # (AUTO) 0.1 /CMM (0.0-0.2); EOSINOPHILS % (AUTO) 3.2 % (0.0-6.0); HEMATOCRIT 28 % (39-51); HEMOGLOBIN 8.5 g/dL (13.5-17.5); LYMPHOCYTES # (AUTO) 1.9 /CMM (0.8-4.8); LYMPHOCYTES % (AUTO) 22.7 % (20.0-44.0); MEAN CORPUSCULAR HGB CONC 31 g/dl (31.0-36.0); MEAN CORPUSCULAR VOLUME 79 fL (80-96); MONOCYTES # (AUTO) 0.6 /CMM (0.1-1.30); MONOCYTES % (AUTO) 6.9 % (2.0-12.0); NEUTROPHILS # (AUTO) 5.5 /CMM (1.8-8.9); NEUTROPHILS % (AUTO) 66.2 % (43.0-81.0); PLATELET COUNT (AUTO) 447 /CMM (150-450); RED BLOOD CELL COUNT(AUTO) 3.51 MIL/uL (4.5-6.0); WHITE BLOOD COUNT (AUTO) 8.4 K/uL (4.3-11.0)
--- NOTE | 2018-11-26 07:15 | NUR ---
RN INITIAL NOTE PATIENT IN BED, ASLEEP BUT EASILY AROUSABLE. NO COMPLAINS OF ANY PAIN, NOR SOB. ON ROOM AIR. ALERT AND ORIENTED X4. HAS SUPRAPUBIC CATH WITH CLEAR AND YELLOW URINE. S/P ROXY BUTTOCK DEBRIDEMENT. HAS A LEFT SIDE BUTTOCK WOUND VAC. HAS A RIGHT UA PICC WITH NS AT 75 ML/HR. POSSIBLE DC TODAY. BED LOCKED AND IN LOWEST POSITION. CALL LIGHT WITHIN REACH. WILL CONTINUE TO MONITOR
[2018-11-26 08:00] VITALS: BP 155/86
[2018-11-26] MEDS: CLOTRIMAZOLE 1% 15 GM TUBE TP SCH (08:17)
[2018-11-26] MEDS: DAKINS QUARTER STRENGTH (0.125%) 480 ML BOTTLE TOP SCH (08:18)
[2018-11-26] MEDS: HYDROGEL DRESSING 90 GM TUBE TP SCH (08:18)
[2018-11-26] MEDS: LACTOBACILLUS RHAMNOSUS GG 1 EACH CAP.SPRINK PO SCH (08:41)
[2018-11-26] MEDS: LINEZOLID 600 MG TABLET PO SCH (08:41)
[2018-11-26] MEDS: PROSOURCE / PROSTAT (PYXIS) 30 ML UDC GT SCH (08:41)
--- NOTE | 2018-11-26 09:12 | NUR ---
RN NOTE OT AT BEDSIDE. OT CLEARS THE PATIENT TO GO TO [facility].
[2018-11-26] MEDS: IV NS 0.9% 1,000 ML IV PRN (09:17)
[2018-11-26 09:53] LABS: CALCIUM, SERUM 8.6 mg/dL (8.5-10.1); CREATININE 0.9 mg/dL (0.6-1.3); MAGNESIUM 1.7 mg/dL (1.8-2.4); PHOSPHORUS 3.6 mg/dL (2.5-4.9); POTASSIUM 3.4 mmol/L (3.5-5.1)
--- NOTE | 2018-11-26 12:00 | NUR ---
INDUSTRIAL MACHINERY MECHANIC NOTE AMBULANCE IS HERE. [facility], TALKED TO ROLF. PATIENT AWARE OF WHERE HE'S GOING. PATIENT ASKED FOR DILAUDID AFTER I TOOK OFF THE WOUND VAC, GIVEN AT 1200. EXIT CARE DONE. REPORT GIVEN TO EMT. WOUND CARE DONE, PICTURES TAKEN IN CHART. VS STABLE. RIGHT UPPER ARM PICC LINE TO BE KEPT, PATIENT WILL CONTINUE IV MEDS AT [facility]. SUPRAPUBIC CATH, INTACT. WITH YELLOW AND CLEAR URINE. NO COMPLAINS OF ANY PAIN NOR SOB AT THIS TIME. PATIENT ON ROOM AIR. BELONGINGS LIST SIGNED AND IN CHART
== END 2018-11-26 12:57 | DRG 853 ==
LOC: ER 15:46 → TELE-TD 17:22 → TELE1 19:39 → MEDSG1 11-13 09:46
PROVIDERS: ADMIT Nurse Practitioner Acute Care; ATTEND Nurse Practitioner Acute Care
PROC: 0KBP0ZZ Excision of Left Hip Muscle, Open Approach (ICD-10-PCS; principal; 2018-11-11)
PROC: 0KBN0ZZ Excision of Right Hip Muscle, Open Approach (ICD-10-PCS; 2018-11-11)
PROC: 0JBM0ZZ Excision of Left Upper Leg Subcutaneous Tissue and Fascia, Open Approach (ICD-10-PCS; 2018-11-11)
PROC: 0KBP0ZZ Excision of Left Hip Muscle, Open Approach (ICD-10-PCS; 2018-11-12)
PROC: 06HM33Z Insertion of Infusion Device into Right Femoral Vein, Percutaneous Approach (ICD-10-PCS; 2018-11-12)
PROC: B54BZZA Ultrasonography of Right Lower Extremity Veins, Guidance (ICD-10-PCS; 2018-11-12)
PROC: 0JBR0ZZ Excision of Left Foot Subcutaneous Tissue and Fascia, Open Approach (ICD-10-PCS; 2018-11-13)
PROC: 0JBQ0ZZ Excision of Right Foot Subcutaneous Tissue and Fascia, Open Approach (ICD-10-PCS; 2018-11-13)
PROC: 0KBP0ZZ Excision of Left Hip Muscle, Open Approach (ICD-10-PCS; 2018-11-15)
PROC: 0KBN0ZZ Excision of Right Hip Muscle, Open Approach (ICD-10-PCS; 2018-11-15)
PROC: 0KBN0ZZ Excision of Right Hip Muscle, Open Approach (ICD-10-PCS; 2018-11-18)
PROC: 0QB30ZZ Excision of Left Pelvic Bone, Open Approach (ICD-10-PCS; 2018-11-18)
PROC: 02HV33Z Insertion of Infusion Device into Superior Vena Cava, Percutaneous Approach (ICD-10-PCS; 2018-11-19)
PROC: B548ZZA Ultrasonography of Superior Vena Cava, Guidance (ICD-10-PCS; 2018-11-19)
PROC: 0QB30ZZ Excision of Left Pelvic Bone, Open Approach (ICD-10-PCS; 2018-11-21)
PROC: 0JB90ZZ Excision of Buttock Subcutaneous Tissue and Fascia, Open Approach (ICD-10-PCS; 2018-11-23)
PROC: 0QB30ZZ Excision of Left Pelvic Bone, Open Approach (ICD-10-PCS; 2018-11-25)
PROC: 0JB90ZZ Excision of Buttock Subcutaneous Tissue and Fascia, Open Approach (ICD-10-PCS; 2018-11-25)
DX: A41.9 Sepsis, unspecified organism (principal); L89.513 Pressure ulcer of right ankle, stage 3; L89.523 Pressure ulcer of left ankle, stage 3; L89.623 Pressure ulcer of left heel, stage 3; L89.613 Pressure ulcer of right heel, stage 3; L89.314 Pressure ulcer of right buttock, stage 4; L89.154 Pressure ulcer of sacral region, stage 4; L89.324 Pressure ulcer of left buttock, stage 4; N17.0 Acute kidney failure with tubular necrosis; E44.0 Moderate protein-calorie malnutrition; E87.2 Acidosis; G82.20 Paraplegia, unspecified; L97.819 Non-pressure chronic ulcer of other part of right lower leg with unspecified severity; N13.6 Pyonephrosis; M46.28 Osteomyelitis of vertebra, sacral and sacrococcygeal region; D63.8 Anemia in other chronic diseases classified elsewhere; E83.42 Hypomagnesemia; E87.6 Hypokalemia; F17.210 Nicotine dependence, cigarettes, uncomplicated; G89.4 Chronic pain syndrome; K21.9 Gastro-esophageal reflux disease without esophagitis; Z88.0 Allergy status to penicillin; Z87.440 Personal history of urinary (tract) infections; Z86.718 Personal history of other venous thrombosis and embolism; Z87.442 Personal history of urinary calculi; Z16.24 Resistance to multiple antibiotics; E88.09 Other disorders of plasma-protein metabolism, not elsewhere classified; E66.9 Obesity, unspecified; Z68.33 Body mass index [BMI] 33.0-33.9, adult; L30.4 Erythema intertrigo; S70.311A Abrasion, right thigh, initial encounter; X58.XXXA Exposure to other specified factors, initial encounter; Y93.9 Activity, unspecified; Y92.009 Unspecified place in unspecified non-institutional (private) residence as the place of occurrence of the external cause; I70.238 Atherosclerosis of native arteries of right leg with ulceration of other part of lower leg; R65.20 Severe sepsis without septic shock; N31.9 Neuromuscular dysfunction of bladder, unspecified; Z86.14 Personal history of Methicillin resistant Staphylococcus aureus infection; B96.5 Pseudomonas (aeruginosa) (mallei) (pseudomallei) as the cause of diseases classified elsewhere; B95.2 Enterococcus as the cause of diseases classified elsewhere; Z16.21 Resistance to vancomycin; V89.2XXS Person injured in unspecified motor-vehicle accident, traffic, sequela; D47.3 Essential (hemorrhagic) thrombocythemia; I10 Essential (primary) hypertension; Z93.6 Other artificial openings of urinary tract status
CPT/HCPCS: 36415; 36569; 71045-TC; 76770-TC; 80048-TC; 80053-TC; 80061-TC; 80076-TC; 80150; 80202-TC; 81000-TC; 82550-TC; 82570-TC; 83605-TC; 83735-TC; 83970; 84100-TC; 84155; 84155-TC; 84165; 84300-TC; 84484-TC; 85025-TC; 85652-TC; 85730-TC; 87040-TC; 87070-TC; 87081-TC; 87086-TC; 87186-TC; 88305-TC; 88311-TC; 88312-TC; 97530-TC; 97535-TC; A4216; A6248; A6253; A6403; C1751; G0378; J0278; J0692; J1170; J1885; J1956; J2060; J2405; J3260; J3370; J3475; J3490; J7030; J7040; J7050; J7060

== ENCOUNTER 2020-04-10 17:38 | Inpatient (IN) | payer MEDICARE, OTHER ==
[~2020-04-10] VITALS: Ht 185.4 cm; Wt 122.5 kg
[~2020-04-10 17:38] MED LIST changes: +CEFE2VIA11 IV; +CLOT15CR35 TP; -DIAZ10TA4 PO; +Hydrogel Dressing TP; -LEVO500T75 PO; +LISI10TA5 PO; +Linezolid PO; +NICO-676 TD; +Prosource GT; -TEST200V3 IM; +TOBR300A5 IH; -TRAM50TA2 PO; -ZOLP10TA2 PO
[2020-04-10] MEDS ORDERED: ONDANSETRON 4 MG TAB.RAPDIS SL ONE (18:30)
[2020-04-10] MEDS ORDERED: HYDROMORPHONE INJ 2 MG/ML DISP.SYRIN IM ONE (18:30)
--- NOTE | 2020-04-10 18:30 | NUR ---
Pt refuses to come in and is opting to stay out in his car. Jes Bojorquez DNP aware
[2020-04-10 19:01] LABS: BILIRUBIN,URINE SMALL (NEGATIVE); COLOR,URINE BROWN (YELLOW); LEUKOCYTE ESTERASE ,URINE Large (NEGATIVE); NITRITE, URINE Negative (NEGATIVE); PH,URINE 8.5 (5.0-8.0); PROTEIN,URINE >=300 mg/dl (NEGATIVE); UGLUCOSE Negative (NEGATIVE); UROBILINOGEN,URINE 0.2 EU/dL (0.2)
[2020-04-10 19:03] LABS: BILIRUBIN,TOTAL 0.2 mg/dL (0.2-1.0); CALCIUM, SERUM 9.3 mg/dL (8.5-10.1); MAGNESIUM 2.6 mg/dL (1.8-2.4); PHOSPHORUS 5.3 mg/dL (2.5-4.9); TOTAL PROTEIN, SERUM 10.4 g/dL (6.4-8.2)
[2020-04-10 19:06] LABS: POTASSIUM 6.6 mmol/L (3.5-5.1)
[2020-04-10 19:11] LABS: RBC,URINE TOO NUMEROUS TO COUN /HPF (0-2)
[2020-04-10 19:12] LABS: BACTERIA,URINE Many /HPF (None Seen); SQUAMOUS EPITHELIAL CELL,UR Few /HPF (None Seen); WBC,URINE TOO NUMEROUS TO COUN /HPF (0-3)
--- NOTE | 2020-04-10 20:00 | NUR ---
bibs for complaints of mild abdominal cramping diffusely, anorexia, recent mild weight loss, and just feeling "crappy" for the last couple of weeks and weakness. denies cough , no chest pain or shortness of breath. Patient has a suprapubic catheter which was replaced 2 weeks ago. pt was placed on a monitor in bed 7, VSS. will cont to monitor ,
--- NOTE | 2020-04-10 20:37 | NUR ---
LAB CALLED REGARDING COVID NEGATIVE RESULT.
[2020-04-10 20:47] LABS: BASOPHILS # (AUTO) 0.2 /CMM (0.0-0.2); BASOPHILS % (AUTO) 0.9 % (0.0-2.0); EOSINOPHILS % (AUTO) 2.2 % (0.0-6.0); HEMATOCRIT 38 % (39-51); HEMOGLOBIN 11.4 g/dL (13.5-17.5); LYMPHOCYTES # (AUTO) 2.9 /CMM (0.8-4.8); LYMPHOCYTES % (AUTO) 12.2 % (20.0-44.0); MEAN CORPUSCULAR HGB CONC 30 g/dl (31.0-36.0); MEAN CORPUSCULAR VOLUME 73 fL (80-96); MONOCYTES # (AUTO) 1.3 /CMM (0.1-1.30); MONOCYTES % (AUTO) 5.3 % (2.0-12.0); NEUTROPHILS # (AUTO) 18.8 /CMM (1.8-8.9); NEUTROPHILS % (AUTO) 79.4 % (43.0-81.0); RED BLOOD CELL COUNT(AUTO) 5.26 MIL/uL (4.5-6.0); WHITE BLOOD COUNT (AUTO) 23.7 K/uL (4.3-11.0)
[2020-04-10 20:50] LABS: THYROID STIMULATING HORMONE 1.54 uIU/mL (0.358-3.74)
--- NOTE | 2020-04-10 20:52 | NUR ---
platelet is [phone]
[2020-04-10 20:53] LABS: PLATELET COUNT (AUTO) 988 /CMM (150-450)
[2020-04-10 21:09] LABS: BAND % (MANUAL) 1 % (0.0-5.0); EOSINOPHILS % (MANUAL) 2 % (0-4); LYMPHOCYTES % (MANUAL) 16 % (16-48); MONOCYTES % (MANUAL) 5 % (0-11.0); NEUTROPHILS % (MANUAL) 76 (42-76)
[2020-04-10] MEDS ORDERED: SODIUM POLYSTYRENE SULFONATE 15 G/60 ML BOTTLE PO STA (22:17)
[2020-04-10] MEDS ORDERED: Z GUARD REMEDY 2 OZ OINT TP PRN (22:30)
[2020-04-10] MEDS ORDERED: ENOXAPARIN SODIUM 40 MG/0.4 ML DISP.SYRIN SQ SCH (22:30)
[2020-04-10] MEDS ORDERED: DIAZEPAM 5 MG TABLET PO PRN (22:30)
[2020-04-10] MEDS ORDERED: COLISTIMETHATE SODIUM 100 MG in IV NS 0.9% 50 ML IV SCH (22:30)
[2020-04-10] MEDS ORDERED: ONDANSETRON HCL/PF 4 MG/2 ML VIAL IVP PRN (22:30)
[2020-04-10] MEDS ORDERED: ACETAMINOPHEN 325 MG TABLET PO PRN (22:30)
--- NOTE | 2020-04-10 22:43 | NUR ---
TELE [id number]
[2020-04-10] MEDS ORDERED: CEFEPIME 2 GM in IV D5W 100 ML IV ONE (23:00)
--- NOTE | 2020-04-10 23:12 | NUR ---
REPORT GIVEN TO [facility] SOM
[2020-04-10] MEDS ORDERED: VANCOMYCIN 2 GM in IV D5W 500 ML IV ONE (23:30)
--- NOTE | 2020-04-10 23:31 | NUR ---
PT WAS TRANSFERRED TO [facility] UNDER [facility]L
--- NOTE | 2020-04-10 23:50 | NUR ---
BELL ATTENDANT NOTES: ADMITTED 44 Y/O MALE TO MED [facility]. PT CAME FROM THE ER C/O OF WEAKNESS AND NOT ABLE TO EAT FOR 2 WEEKS. PT IS TELE ON MONITOR. VITALS CHECKED WNL. PT IS A/O X3-4 AND COOPERATIVE. NO SOB. NO RESP DISTRESS. BREATHING EVEN AND UNLABORED. PT IN ROOM AIR SAT AT 99%. PT HAS A SUPRAPUBIC CATH 28 FR INTACT AND FLOWING WELL. UPON FULL BODY ASSESSMENT PT HAS NOTED, LEFT BUTTOCKS OPEN WOUNDS, RIGHT BUTTOCKS REDNESS, RIGHT ROBISON DISCOLORATION, R HEEL WOUND, RIGHT FEET WOUND, LEFT GREAT TOE WOUND, L ANKLE DISCOLORATION, LEFT HEEL WOUND, LEFT FOOT WOUND, TESICLE REDNESS, AND PERINEAL REDNESS. PHOTO TAKEN AND PUT IN THE CHART. DIETARY CONSULT ORDERED WELL. PT HAS NO PAIN AT THIS TIME. CALL LIGHT WITHIN REACH. KEPT CLEAN AND DRY. BED LOCKED. WILL CONTINUE TO MONITOR.
[2020-04-10 23:55] VITALS: BP 110/66
[2020-04-11] MEDS ORDERED: VANCOMYCIN 1 GM VIAL ONE ×2 (01:13→01:17)
[2020-04-11] MEDS: PANTOPRAZOLE 40 MG TABLET.DR PO SCH ×2 (01:14→08:56)
[2020-04-11] MEDS: ENOXAPARIN SODIUM 30 MG/0.3 ML DISP.SYRIN SQ SCH (01:15)
[2020-04-11 01:20] LABS: ABG BASE EXCESS -11.3 mmol/L; ABG OXYGEN SATURATION 97.2 % (92.0-98.5); ABG PCO2 29.8 mmHg (35.0-45.0); ABG PH 7.289 (7.350-7.450); COHb 1.4 % (0.5-1.5); MetHb 0.3 % (0.0-1.5); O2Hb 95.5 % (94.0-97.0); SITE, ABG Right Radial; VENT MODE, BG Room Air
[2020-04-11] MEDS ORDERED: CEFEPIME 1 GM VIAL ONE (01:30)
[2020-04-11] MEDS ORDERED: COLISTIMETHATE SODIUM 150 MG VIAL ONE (01:31)
[2020-04-11] MEDS ORDERED: SODIUM POLYSTYRENE SULFONATE 15 G/60 ML BOTTLE ONE (01:32)
--- NOTE | 2020-04-11 03:07 | NUR ---
MS RN NOTES: CHARGE NURSE CONTACTED BRITT TO INSERT MIDLINE. PER BRITT, HE WILL COME TODAY. PT AWARE AND GREGORIO YANG AWARE. CONTINUE TO MONITOR
--- NOTE | 2020-04-11 03:08 | NUR ---
MS3 RN NOTES: CHARGE NURSE CONTACTED BRITT IN REGARDS TO MIDLINE INSERTION FOR PT. PER BRITT HE WILL ARRIVE LATER TODAY IN THE MORNING. IV MEDICATION NOT ADMINISTERED UNTIL IV INSERTION. PER PT, HE WANTS TO WAIT FOR BRITT TO PUT IN MIDLINE AND REFUSED REGULAR IV INSERTION. MD SHELBY WILL CONTINUE TO MONITOR AND ENDORSE TO DAY SHIFT.
[2020-04-11 04:00] VITALS: BP 110/52
--- NOTE | 2020-04-11 06:00 | NUR ---
TELERN HAD 2 DOSES OF DILAUDED 2 MG IVP FOR ABDOMINAL PAIN WITH RELIEF THIS SHIFT. ALL NEEDS ATTENDED, KEPT COMFORTABLE.
--- NOTE | 2020-04-11 06:05 | NUR ---
RN CLOSING NOTES PATIENT IS ON BED. ALERT AND ORIENTED X3-4. PATIENT IN NO APPARENT RESPIRATORY DISTRESS NOTED. BREATHING EVEN AND UNLABORED. NO COMPLAINED OF PAIN AT THIS TIME. TELE MONITOR READING SINUS TACH 101 BPM. AWAITING FOR BRITT TO INSERT MIDLINE. PT AWARE. SAFETY PRECAUTIONS WAS IN PLACED. BED IN LOWEST POSITION AND LOCKED X2. SUPRA PUBIC CATH IN PLACE AND INTACT. CALL LIGHT WITHIN REACH. WILL ENDORSE TO DAY SHIFT. CONTINUE TO MONITOR.
[2020-04-11 07:35] LABS: ALBUMIN 2.7 g/dL (3.4-5.0); BILIRUBIN,TOTAL 0.2 mg/dL (0.2-1.0); CALCIUM, SERUM 9.2 mg/dL (8.5-10.1); CREATININE 4.6 mg/dL (0.6-1.3); MAGNESIUM 2.8 mg/dL (1.8-2.4); PHOSPHORUS 6.5 mg/dL (2.5-4.9); POTASSIUM 5.9 mmol/L (3.5-5.1); TOTAL PROTEIN, SERUM 9.6 g/dL (6.4-8.2)
[2020-04-11 07:42] LABS: BASOPHILS # (AUTO) 0.1 /CMM (0.0-0.2); BASOPHILS % (AUTO) 0.5 % (0.0-2.0); EOSINOPHILS % (AUTO) 1.5 % (0.0-6.0); HEMATOCRIT 35 % (39-51); HEMOGLOBIN 10.7 g/dL (13.5-17.5); LYMPHOCYTES # (AUTO) 2.3 /CMM (0.8-4.8); MEAN CORPUSCULAR HGB CONC 31 g/dl (31.0-36.0); MEAN CORPUSCULAR VOLUME 72 fL (80-96); MONOCYTES # (AUTO) 1.6 /CMM (0.1-1.30); MONOCYTES % (AUTO) 8.5 % (2.0-12.0); NEUTROPHILS # (AUTO) 14.6 /CMM (1.8-8.9); NEUTROPHILS % (AUTO) 77.5 % (43.0-81.0); PLATELET COUNT (AUTO) 799 /CMM (150-450); RED BLOOD CELL COUNT(AUTO) 4.83 MIL/uL (4.5-6.0); WHITE BLOOD COUNT (AUTO) 18.8 K/uL (4.3-11.0)
[2020-04-11 08:00] VITALS: BP 105/72
[2020-04-11] MEDS: IV NS 0.9% 1,000 ML IV PRN ×2 (08:59→19:47)
[2020-04-11] MEDS: HYDROMORPHONE INJ 2 MG/ML DISP.SYRIN IV PRN ×3 (09:02→17:50)
[2020-04-11] MEDS: COLISTIMETHATE SODIUM 100 MG in IV NS 0.9% 50 ML IV SCH ×2 (09:55→20:46)
[2020-04-11 10:09] LABS: BAND % (MANUAL) 1 % (0.0-5.0); EOSINOPHILS % (MANUAL) 2 % (0-4); LYMPHOCYTES % (MANUAL) 13 % (16-48); MONOCYTES % (MANUAL) 5 % (0-11.0); NEUTROPHILS % (MANUAL) 79 (42-76)
[2020-04-11] MEDS: CEFEPIME 2 GM in IV D5W 100 ML IV SCH (10:49)
[2020-04-11 12:00] VITALS: BP 120/67
--- NOTE | 2020-04-11 12:27 | NUR ---
telecommunications support notes PATIENT WA SEEN AND EVALUATED BY DR. GREGORIO YANG, ORDERS TO GIVE DILUADED ONCE NOW INSTEAD OF Q4HR. AND FOLLOW THE Q4HRS AFTER THIS DOSE. ORDERS NOTED AND CARRIED OUT.
[2020-04-11] MEDS: VANCOMYCIN 1 GM in IV D5W 250ml IV SCH (12:30)
[2020-04-11] MEDS ORDERED: SODIUM POLYSTYRENE SULFONATE 15 G/60 ML BOTTLE PO ONE (14:30)
[2020-04-11] MEDS: ENSURE ENLIVE 237 ML LIQUID (VANILLA) PO SCH ×2 (14:30→18:06)
[2020-04-11 15:43] LABS: CALCIUM, SERUM 8.3 mg/dL (8.5-10.1); CREATININE 4.7 mg/dL (0.6-1.3); POTASSIUM 5.8 mmol/L (3.5-5.1)
[2020-04-11 16:00] VITALS: BP 96/63
--- NOTE | 2020-04-11 17:10 | NUR ---
ROLLER OPERATOR NOTES DR. JACOBSON AWARE OF PATIENTS RECENT LAB RESULTS. KAYEXALATE GIVEN PATIENT TOLERATED WELL. WILL CONTINUE TO MONITOR.
[2020-04-11] MEDS ORDERED: IV NS 0.9% 1,000 ML IV ONE (18:00)
[2020-04-11 20:34] VITALS: BP 94/67
--- NOTE | 2020-04-11 21:33 | NUR ---
PURE CULTURE OPERATOR NOTES PATIENT IN BED RESTING. ALL DUE MEDICATIONS ADMINISTERED. ALL NEEDS MET. WILL ENDORSE CARE TO PM SHIFT. SAFETY MEASURES IN PLACE.
[2020-04-12] MEDS: ENOXAPARIN SODIUM 30 MG/0.3 ML DISP.SYRIN SQ SCH ×2 (00:45→22:35)
[2020-04-12] MEDS: HYDROMORPHONE INJ 2 MG/ML DISP.SYRIN IV PRN ×5 (00:47→19:57)
[2020-04-12 00:51] VITALS: BP 93/49
[2020-04-12 05:07] VITALS: BP 111/56
[2020-04-12] MEDS: IV NS 0.9% 1,000 ML IV PRN ×2 (05:13→15:54)
[2020-04-12 07:11] LABS: BASOPHILS % (AUTO) 0.2 % (0.0-2.0); EOSINOPHILS % (AUTO) 4.3 % (0.0-6.0); HEMATOCRIT 26 % (39-51); HEMOGLOBIN 8.1 g/dL (13.5-17.5); LYMPHOCYTES # (AUTO) 1.1 /CMM (0.8-4.8); LYMPHOCYTES % (AUTO) 9.9 % (20.0-44.0); MEAN CORPUSCULAR HGB CONC 31 g/dl (31.0-36.0); MEAN CORPUSCULAR VOLUME 73 fL (80-96); MONOCYTES # (AUTO) 0.6 /CMM (0.1-1.30); NEUTROPHILS % (AUTO) 80.6 % (43.0-81.0); PLATELET COUNT (AUTO) 493 /CMM (150-450); RED BLOOD CELL COUNT(AUTO) 3.57 MIL/uL (4.5-6.0); WHITE BLOOD COUNT (AUTO) 11.2 K/uL (4.3-11.0)
[2020-04-12 07:14] LABS: ALBUMIN 1.8 g/dL (3.4-5.0); BILIRUBIN,TOTAL 0.2 mg/dL (0.2-1.0); CALCIUM, SERUM 7.9 mg/dL (8.5-10.1); CREATININE 3.9 mg/dL (0.6-1.3); POTASSIUM 3.3 mmol/L (3.5-5.1); TOTAL PROTEIN, SERUM 6.9 g/dL (6.4-8.2)
[2020-04-12 07:27] LABS: THYROID STIMULATING HORMONE 0.87 uIU/mL (0.358-3.74); URIC ACID 10.6 mg/dL (2.6-7.2)
--- NOTE | 2020-04-12 07:38 | NUR ---
RN Opening note Received patient in bed, AO x 3-4 able to responds all stimuli, Pt does no appears pain or distress. Skin is warm to touch keep clean/dry intact IV site, respiratory even and unlabored on room air. Kept locked bed with elevated HOB for aspiration precaution and ensure airway and lowest bed foe safety. Call light within reach, will continue to monitor.
[2020-04-12 08:00] VITALS: BP 100/60
[2020-04-12] MEDS: COLISTIMETHATE SODIUM 100 MG in IV NS 0.9% 50 ML IV SCH ×2 (08:54→21:55)
[2020-04-12] MEDS: CEFEPIME 2 GM in IV D5W 100 ML IV SCH (08:54)
[2020-04-12] MEDS: ENSURE ENLIVE 237 ML LIQUID (VANILLA) PO SCH ×2 (08:54→17:46)
[2020-04-12] MEDS: PANTOPRAZOLE 40 MG TABLET.DR PO SCH (09:00)
--- NOTE | 2020-04-12 09:57 | NUR ---
WOUND CARE CONSULT: PT PRESENTS WITH MULTIPLE WOUNDS, PRESENT ON ADMISSION. REVIEWED CHART AND PHOTOS, NURSING DOCUMENTATION. DR JAVED AND DR GONZALEZ NOTIFIED OF SURGICAL AND DPM CONSULT REQUESTS. DISCUSSED SKIN PROTECTION WITH NURSING STAFF. PT TO BE PLACED ON YOAN ISOFLEX LOW AIRLOSS BED. MD IN AGREEMENT WITH PLAN OF CARE.
[2020-04-12] MEDS: VANCOMYCIN 1 GM in IV D5W 250ml IV SCH (10:29)
[2020-04-12 12:00] VITALS: BP 121/60
[2020-04-12 16:00] VITALS: BP 114/60
[2020-04-12] MEDS ORDERED: diphenhydrAMINE HCL 50 MG/ML VIAL IV ONE (17:30)
[2020-04-12] MEDS: cetrizine 10 MG TABLET PO SCH (17:48)
--- NOTE | 2020-04-12 18:46 | NUR ---
RN closing Patient in bed resting, does no appears pain or discomfort. Skin is warm to touch keep clean/dry, intact IV site. Respiratory even and unlabored with on room air O2sat 98%. Kept elevated HOB for ensure air way and aspiration precaution and lowest bed for safety. Call light within reach, will endorse operations supervisor 2nd shift.
--- NOTE | 2020-04-12 19:30 | NUR ---
TELE/RN OPENING NOTES RECEIVED PATIENT IN BED RESTING. PATIENT IS ALERT AND ORIENTED X 4. PATIENT BREATHING IS EVEN AND UNLABORED. NO SIGNS OF SOB OR RESPIRATORY DISTRESS NOTED. PATIENT HAS IV ACCESS ON RIGHT UPPER ARM MIDLINE RUNNING NS AT 125ML/HR. SAFETY MEASURES ARE IN PLACE, BED IS LOCKED AND PLACED IN THE LOWEST POSITION, CALL LIGHT IS WITHIN REACH. WILL CONTINUE TO MONITOR THROUGH OUT SHIFT.
[2020-04-12 20:00] VITALS: BP 134/83
[2020-04-12] MEDS: THERAHONEY GEL 1.5 OZ TUBE TP SCH (21:55)
--- NOTE | 2020-04-12 22:00 | NUR ---
TELE.RN NOTES PATIENT COMPLETED HD 0 CC OUTPUT, ONLY CLEAN. V/S ARE WITHIN NORMAL LIMITS, PATIENT IN NO SIGNS OF DISTRESS.
[2020-04-12 23:54] LABS: CREATININE, URINE 40.7 MG/DL (30.0-125.0); URINE TOTAL PROTEIN 164.6 mg/dL (0-11.9)
[2020-04-13] VITALS: BP 119/52
[2020-04-13 00:03] LABS: COLOR,URINE YELLOW (YELLOW); LEUKOCYTE ESTERASE ,URINE LARGE (NEGATIVE)
[2020-04-13 00:04] LABS: NITRITE, URINE NEGATIVE (NEGATIVE); PH,URINE 7.5 (5.0-8.0); PROTEIN,URINE 1+ mg/dl (NEGATIVE); UROBILINOGEN,URINE 0.2 EU/dL (0.2)
[2020-04-13 00:05] LABS: BILIRUBIN,URINE NEGATIVE (NEGATIVE); UGLUCOSE NEGATIVE (NEGATIVE)
[2020-04-13 00:07] LABS: BACTERIA,URINE 1+ /HPF (None Seen); RBC,URINE 81-100 /HPF (0-2); WBC,URINE TOO NUMEROUS TO COUN /HPF (0-3)
[2020-04-13] MEDS: HYDROMORPHONE INJ 2 MG/ML DISP.SYRIN IV PRN ×6 (00:13→23:29)
[2020-04-13 00:52] LABS: EOSINOPHIL,URINE None Seen
[2020-04-13 04:00] VITALS: BP 103/59
[2020-04-13] MEDS: IV NS 0.9% 1,000 ML IV PRN ×2 (04:28→23:25)
--- NOTE | 2020-04-13 04:30 | NUR ---
TELE/RN NOTES PATIENT STATING PAIN AT ADBOMIN AREA. PATIENT GIVEN DILAUDID 2 MG IVP. V/S ARE WNL.
--- NOTE | 2020-04-13 06:55 | NUR ---
TELE/RN CLOSING NOTES PATIENT IN BED RESTING. PATIENT IS ALERT AND ORIENTED X 4. PATIENT BREATHING IS EVEN AND UNLABORED. NO SIGNS OF SOB OR RESPIRATORY DISTRESS NOTED. PATIENT HAS IV ACCESS ON RIGHT UPPER ARM MIDLINE RUNNING NS AT 125ML/HR. PATIENT SUPRAPUBIC CATH IN PLACE DRAINING WELL. PATIENT TRANSFERRED TO [facility] BED. ALL NEED MET DURING SHIFT. SAFETY MEASURES ARE IN PLACE, BED IS LOCKED AND PLACED IN THE LOWEST POSITION, CALL LIGHT IS WITHIN REACH. WILL ENDORSE CARE TO DAY SHIFT NURSE. .
[2020-04-13 07:22] LABS: *ANA ANTI-CENTROMERE B AB <0.2 AI (0.0-0.9); *ANA ANTI-DNA(DS) AB, QN 4 IU/mL (0-9); *ANA ANTI-JO-1 <0.2 AI (0.0-0.9); *ANA ANTICHROMATIN ANTIBODY <0.2 AI (0.0-0.9); *ANA RNP ANTIBODIES <0.2 AI (0.0-0.9); *ANA SJOGREN'S ANTI-SS-A <0.2 AI (0.0-0.9); *ANA SJOGREN'S ANTI-SS-B <0.2 AI (0.0-0.9); *ANAANTI-SCLERODERMA-70 AB <0.2 AI (0.0-0.9); *ANASMITH AB <0.2 AI (0.0-0.9)
[2020-04-13 07:22] LABS: PTH, INTACT 50 pg/mL (15-65)
[2020-04-13 07:47] LABS: BASOPHILS % (AUTO) 0.4 % (0.0-2.0); HEMATOCRIT 24 % (39-51); HEMOGLOBIN 7.5 g/dL (13.5-17.5); LYMPHOCYTES # (AUTO) 1.6 /CMM (0.8-4.8); LYMPHOCYTES % (AUTO) 17.1 % (20.0-44.0); MEAN CORPUSCULAR HGB CONC 32 g/dl (31.0-36.0); MEAN CORPUSCULAR VOLUME 73 fL (80-96); MONOCYTES # (AUTO) 0.9 /CMM (0.1-1.30); MONOCYTES % (AUTO) 9.5 % (2.0-12.0); NEUTROPHILS # (AUTO) 6.2 /CMM (1.8-8.9); PLATELET COUNT (AUTO) 459 /CMM (150-450); RED BLOOD CELL COUNT(AUTO) 3.28 MIL/uL (4.5-6.0); WHITE BLOOD COUNT (AUTO) 9.2 K/uL (4.3-11.0)
--- NOTE | 2020-04-13 07:49 | NUR ---
TELE OPENING NOTE PATIENT IS IN BED RESTING. PATIENT IS IN NO ACUTE DISTRESS. PATIENT IS ON ROOM AIR. NO SOB NOTED. HOB ELEVATED. PATIENT IS ON MARINE SERVICE STATION ATTENDANT READING ST 118. SAFETY MEASURES ARE IN PLACE. PATIENTS BED IS LOCKED AND IN THE LOWEST POSITION. SIDE RAILS ARE UP. CALL LIGHT WITHIN REACH. WILL CONTINUE TO MONITOR THOUGHT OUT THE SHIFT.
[2020-04-13 08:00] VITALS: BP 112/60
[2020-04-13 08:33] LABS: CALCIUM, SERUM 7.9 mg/dL (8.5-10.1); CREATININE 2.9 mg/dL (0.6-1.3); POTASSIUM 3.2 mmol/L (3.5-5.1)
[2020-04-13] MEDS: COLISTIMETHATE SODIUM 100 MG in IV NS 0.9% 50 ML IV SCH (09:10)
[2020-04-13] MEDS ORDERED: POTASSIUM CHLORIDE 20 MEQ TAB.PRT.SR PO ONE (09:30)
[2020-04-13] MEDS: cetrizine 10 MG TABLET PO SCH (09:31)
[2020-04-13] MEDS: PANTOPRAZOLE 40 MG TABLET.DR PO SCH (09:31)
[2020-04-13] MEDS: THERAHONEY GEL 1.5 OZ TUBE TP SCH ×2 (09:32→09:33)
[2020-04-13] MEDS: UREA 10% -AHA 4% CREAM 57 GM TUBE TP SCH (09:33)
[2020-04-13] MEDS: ENSURE ENLIVE 237 ML LIQUID (VANILLA) PO SCH ×2 (09:35→17:38)
[2020-04-13] MEDS: CEFEPIME 2 GM in IV D5W 100 ML IV SCH (10:05)
--- NOTE | 2020-04-13 10:18 | NUR ---
LAUNDRY OPERATOR WASH ROOM NOTE PATIENT IS COMPLAINING OF ITCHING AND SLIGHT SWELLING OF RIGHT EYE DUE TO ANTIBIOTIC COLISTIMETHATE SODIUM, PATIENT IS REQUESTING BENADRYL. INFORMED DR SPENCER, PER MD ORDER IV BENADRYL 25MG EVERY 8 HRS PRN.
[2020-04-13] MEDS ORDERED: diphenhydrAMINE HCL 50 MG/ML VIAL IV PRN (10:30)
[2020-04-13 11:16] LABS: EOSINOPHILS % (MANUAL) 3 % (0-4); LYMPHOCYTES % (MANUAL) 19 % (16-48); MONOCYTES % (MANUAL) 7 % (0-11.0); NEUTROPHILS % (MANUAL) 71 (42-76)
[2020-04-13] MEDS ORDERED: BISACODYL SUPP (10 MG) 10 MG/SUPP.RECT SUPP.RECT RC PRN (11:30)
[2020-04-13] MEDS: SENNOSIDES/DOCUSATE SODIUM 1 TAB TABLET PO SCH (11:52)
[2020-04-13] MEDS: POLYETHYLENE GLYCOL 3350 17 GM POWD.PACK PO SCH ×2 (11:52→22:18)
[2020-04-13 12:00] VITALS: BP 115/67
[2020-04-13 13:11] LABS: *SPE A/G RATIO 0.5 (0.7-1.7); *SPE ALBUMIN 2.1 g/dL (2.9-4.4); *SPE ALPHA-1-GLOBULIN 0.3 g/dL (0.0-0.4); *SPE ALPHA-2-GLOBULIN 0.9 g/dL (0.4-1.0); *SPE BETA GLOBULIN 0.8 g/dL (0.7-1.3); *SPE M-SPIKE Not Observed g/dL (Not Observed); *SPEGAMMA GLOBULIN 1.9 g/dL (0.4-1.8)
[2020-04-13 16:07] VITALS: BP 136/72
--- NOTE | 2020-04-13 19:47 | NUR ---
PROPERTY CONTROLLER CLOSING NOTE PATIENT IS IN BED RESTING COMFORTABLY. NO SIGNS OR SYMPTOMS OF DISTRESS. PATIENT IS ON ROOM AIR. NO SOB NOTED. HOB ELEVATED. PATIENT IS ON ENTER[employer]ISE SYSTEMS ENGINEER READING [address]. SAFETY MEASURES ARE IN PLACE. BED IS LOCKED AND IN THE LOWEST POSITION. SIDE RAILS ARE UP CALL LIGHT WITHIN REACH. ENDORSE PATIENT TO THE IT ARCHITECT FOR SOM.
--- NOTE | 2020-04-13 20:00 | NUR ---
tele management lecturer initial notes received pt in bed awake and alert watching TV at this time , denies any pain or any discomfort. noticed he had a lot of food on his table . Sinus tach on tele monitor. he also had supra pubic cath draining well . kept him warm and comfortable at all times. Ivf NS at 125 ml/hr infusing on his DOUGLAS midline. will continue monitoring. place call light at reach.
[2020-04-13 20:44] VITALS: BP 176/72
[2020-04-13] MEDS: ENOXAPARIN SODIUM 30 MG/0.3 ML DISP.SYRIN SQ SCH (23:21)
[2020-04-14] VITALS (7 sets, daily range): BP systolic 107–126; BP diastolic 52–70
[2020-04-14] MEDS: HYDROMORPHONE INJ 2 MG/ML DISP.SYRIN IV PRN ×5 (04:59→21:35)
--- NOTE | 2020-04-14 07:25 | NUR ---
DETECTIVE NARCOTICS AND VICE OPENING NOTES RECEIVED PT IN BED. A/O X 4. AFEBRILE. IN PAIN. BREATHING EVEN AND UNLABORED. ON ROOM AIR, TOLERATING WELL. WITH DOUGLAS MIDLINE, INTACT, NS RUNNING AT 125 ML/HR. PROVIDED SAFETY MEASURES. BED IN LOWEST POSITION, LOCKED. SIDE RAILS UP X2. CALL LIGHT WITHIN REACH. WILL CONTINUE PLAN OF CARE.
--- NOTE | 2020-04-14 08:04 | NUR ---
MS BUMPER OPERATOR CLOSING NOTES PT AWAKE AND ALERT WACTHING MOVIE FROM HIS IPAD. DENIES ANY PAIN OR ANY DISCOMFORT AT THIS TIME. ALL DUE MEDS GIVEN AND ALL NEEDS MET. IVF STILL INFUSING. KEPT HIM WARM AND COMFORTABLE AT ALL TIMES. PLACE CALL LIGHT AT REACH. ENDORSE TO AM NURSE KIMMY FOR CONTINUITY OF CARE.
[2020-04-14] MEDS: THERAHONEY GEL 1.5 OZ TUBE TP SCH ×2 (09:00→10:27)
[2020-04-14 09:30] LABS: BASOPHILS # (AUTO) 0.1 /CMM (0.0-0.2); BASOPHILS % (AUTO) 0.7 % (0.0-2.0); EOSINOPHILS % (AUTO) 4.7 % (0.0-6.0); HEMATOCRIT 24 % (39-51); HEMOGLOBIN 7.4 g/dL (13.5-17.5); LYMPHOCYTES # (AUTO) 1.4 /CMM (0.8-4.8); LYMPHOCYTES % (AUTO) 16.6 % (20.0-44.0); MEAN CORPUSCULAR HGB CONC 31 g/dl (31.0-36.0); MEAN CORPUSCULAR VOLUME 73 fL (80-96); MONOCYTES # (AUTO) 0.8 /CMM (0.1-1.30); MONOCYTES % (AUTO) 9.1 % (2.0-12.0); NEUTROPHILS # (AUTO) 5.9 /CMM (1.8-8.9); NEUTROPHILS % (AUTO) 68.9 % (43.0-81.0); PLATELET COUNT (AUTO) 507 /CMM (150-450); RED BLOOD CELL COUNT(AUTO) 3.29 MIL/uL (4.5-6.0); WHITE BLOOD COUNT (AUTO) 8.6 K/uL (4.3-11.0)
[2020-04-14 09:50] LABS: CALCIUM, SERUM 7.8 mg/dL (8.5-10.1); CREATININE 2.6 mg/dL (0.6-1.3); MAGNESIUM 1.4 mg/dL (1.8-2.4); PHOSPHORUS 2.7 mg/dL (2.5-4.9); POTASSIUM 3.7 mmol/L (3.5-5.1)
[2020-04-14] MEDS: CEFEPIME 2 GM in IV D5W 100 ML IV SCH (10:12)
[2020-04-14] MEDS: cetrizine 10 MG TABLET PO SCH (10:12)
[2020-04-14] MEDS: SENNOSIDES/DOCUSATE SODIUM 1 TAB TABLET PO SCH (10:13)
[2020-04-14] MEDS: PANTOPRAZOLE 40 MG TABLET.DR PO SCH (10:13)
[2020-04-14] MEDS: ENSURE ENLIVE 237 ML LIQUID (VANILLA) PO SCH ×2 (10:25→17:35)
[2020-04-14] MEDS: UREA 10% -AHA 4% CREAM 57 GM TUBE TP SCH (10:27)
[2020-04-14] MEDS ORDERED: COLL30OI TP (13:54)
[2020-04-14] MEDS ORDERED: POLY17PO4 PO (13:54)
[2020-04-14] MEDS ORDERED: CEPH-570 PO (13:55)
[2020-04-14] MEDS ORDERED: LACTULOSE 10 G/15 ML UDC (PYXIS) PO ONE (14:30)
[2020-04-14] MEDS ORDERED: CEFD300C3 PO (15:11)
[2020-04-14] MEDS: IV NS 0.9% 1,000 ML IV PRN (17:39)
--- NOTE | 2020-04-14 19:40 | NUR ---
DIRECTOR CUSTOM OPENING NOTES RECEIVED PATIENT IN BED. A/O X4. NO ACUTE DISTRESS NOTED. BREATHING EVEN AND UNLABORED. ON ROOM AIR, TOLERATING WELL. DENIES PAIN OR DISCOMFORT AT THIS TIME. IV ACCESS ON DOUGLAS MIDLINE, PATENT AND INTACT. SAFETY MEASURES IN PLACE. BED IN LOWEST POSITION, LOCKED. SIDE RAILS UP X2. CALL LIGHT WITHIN REACH. WILL CONTINUE PLAN OF CARE.
--- NOTE | 2020-04-14 19:40 | NUR ---
TELE/RN CLOSING NOTES PATIENT RESTING IN BED. A/O X4. AFEBRILE. IN NO APPARENT DISTRESS. BREATHING EVEN AND UNLABORED. ON TELE READING ST 118. WITH DOUGLAS MIDLINE, INTACT, NS RUNNING @ 125 ML/HR. ON SUPRAPUBIC CATH. SAFETY MEASURES PROVIDED. SIDE RAILS UP X2. CALL LIGHT WITHIN REACH. WILL ENDORSE TO NIGHT FOR SOM.
[2020-04-14] MEDS: POLYETHYLENE GLYCOL 3350 17 GM POWD.PACK PO SCH (21:36)
--- NOTE | 2020-04-14 21:49 | NUR ---
TELE MS-RN NOTE: RECEIVED A CALL FROM BHARGAVI YANG WITH NEW ORDER OF VALIUM 10MG PO BID PRN, NOTED AND CARRIED OUT.
[2020-04-14] MEDS ORDERED: DIAZEPAM 5 MG TABLET PO PRN ×2 (22:00)
[2020-04-14] MEDS: ENOXAPARIN SODIUM 30 MG/0.3 ML DISP.SYRIN SQ SCH (22:45)
[2020-04-15] VITALS (7 sets, daily range): BP systolic 104–115; BP diastolic 53–67
[2020-04-15] MEDS: HYDROMORPHONE INJ 2 MG/ML DISP.SYRIN IV PRN ×6 (01:54→23:37)
[2020-04-15] MEDS: IV NS 0.9% 1,000 ML IV PRN ×2 (06:29→23:48)
--- NOTE | 2020-04-15 07:29 | NUR ---
LOAN SERVICE OFFICER OPENING NOTES RECEIVED PATIENT AWAKE IN BED IN NO ACUTE SIGNS OF DISTRESS. HOB ELEVATED. A/O X4. ABLE TO MAKE NEEDS KNOWN, DENIES PAIN OR ANY DISCOMFORTS AT THIS TIME. ON ROOM AIR, TOLERATING WELL, BREATHING EVEN AND UNLABORED. DOUGLAS MIDLINE, PATENT AND INTACT, IVF OF NS @100ML/HR RUNNING, NO S/S OF INFILTRATION NOTED. PLASENCIA IN PLACE AND ACTIVELY DRAINING SLIGHT CLOUDY LIGHT ORANGE URINE TO GRAVITY. SAFETY MEASURES IN PLACE: BED IN LOWEST POSITION AND LOCKED. SIDE RAILS UP X2. CALL LIGHT WITHIN REACH. WILL CONTINUE TO MONITOR PT.
--- NOTE | 2020-04-15 07:35 | NUR ---
DESPATCHING AND RECEIVING CLERK CLOSING NOTES PATIENT IN BED ASLEEP, AROUSES EASILY. A/O X4. NO ACUTE DISTRESS NOTED. BREATHING EVEN AND UNLABORED. ON ROOM AIR, TOLERATING WELL. DENIES PAIN OR DISCOMFORT AT THIS TIME. IV ACCESS ON DOUGLAS MIDLINE, PATENT AND INTACT. SAFETY MEASURES IN PLACE. BED IN LOWEST POSITION, LOCKED. SIDE RAILS UP X2. CALL LIGHT WITHIN REACH. REPOSITIONED FOR COMFORT. ON SUPRAPUBIC CATHETER DRAINING WELL WITH CLEAR YELLOW URINE. NO SEDIMENTS NOTED. WILL ENDORSE TO DAY SHIFT NURSE FOR CONTINUITY OF CARE.
[2020-04-15 07:49] LABS: CREATININE 2.4 mg/dL (0.6-1.3); POTASSIUM 3.6 mmol/L (3.5-5.1)
[2020-04-15 08:00] LABS: CALCIUM, SERUM 8.2 mg/dL (8.5-10.1)
[2020-04-15] MEDS: PANTOPRAZOLE 40 MG TABLET.DR PO SCH (08:12)
[2020-04-15] MEDS: ENSURE ENLIVE 237 ML LIQUID (VANILLA) PO SCH ×2 (08:12→16:54)
[2020-04-15] MEDS: SENNOSIDES/DOCUSATE SODIUM 1 TAB TABLET PO SCH (08:12)
[2020-04-15] MEDS: cetrizine 10 MG TABLET PO SCH (08:12)
[2020-04-15] MEDS: CEFEPIME 2 GM in IV D5W 100 ML IV SCH (08:15)
[2020-04-15] MEDS: THERAHONEY GEL 1.5 OZ TUBE TP SCH ×2 (09:17)
[2020-04-15] MEDS: UREA 10% -AHA 4% CREAM 57 GM TUBE TP SCH (09:18)
[2020-04-15] MEDS: LACTULOSE 10 G/15 ML UDC (PYXIS) PO SCH ×2 (09:41→16:54)
[2020-04-15] MEDS ORDERED: SOD FERRIC GLUC 125 MG in IV NS 0.9% 100 ML IV SCH (14:00)
[2020-04-15] MEDS: NA PHOS,M-B/NA PHOS,DI-BA 1 EA ENEMA RC PRN ×2 (17:58→18:00)
--- NOTE | 2020-04-15 18:15 | NUR ---
RN NOTES PT HAD NO BM TODAY. PRN FLEET ENEMA ADMINISTERED. AWAITING TO HAVE BM.. IF PT WILL DO BM, PT WILL BE DISCHARGED HOME WITH HOME HEALTH TONIGHT. PT REFUSED TO HAVE SKIN ISSUES TAKEN, STATED THAT DRESSING WAS DONE EARLIER AND STILL INTACT.
--- NOTE | 2020-04-15 19:21 | NUR ---
PROMOTIONAL MARKETING AGENT CLOSING NOTES PATIENT IN BED AWAKE, A/O X4. ABLE TO MAKE NEEDS KNOWN. PT LYING ON HIS SIDE AT THIS TIME S/P FLEET ENEMA ADMINISTRATION. ON ROOM AIR, TOLERATING WELL, BREATHING EVEN AND UNLABORED. DOUGLAS MIDLINE, PATENT AND INTACT, IVF OF NS @100ML/HR RUNNING, NO S/S OF INFILTRATION NOTED. PLASENCIA IN PLACE AND ACTIVELY DRAINING SLIGHT CLOUDY LIGHT ORANGE URINE TO GRAVITY. ALL NEEDS AND CARE ATTENDED WELL. SAFETY MEASURES IN PLACE: BED IN LOWEST POSITION AND LOCKED. SIDE RAILS UP X2. CALL LIGHT WITHIN REACH. IF PT WILL DO BM TONIGHT, HE WILL DISCHARGED HOME WITH HOME HEALTH. ENDORSED PLAN OF CARE TO [facility]
--- NOTE | 2020-04-15 19:30 | NUR ---
OVER HAULER HELPER OPENING NOTE RECEIVED PATIENT IN BED. A/OX4. TOLERATING ROOM AIR. RESPIRATIONS ARE EVEN AND UNLABORED. NIO S/S SOB NOTED. NO C/O PAIN AT THIS TIME. EXTERNAL TELE MONITOR READS SINUS TACH HR 104. IN NO APPARENT DISTRESS. IV ACCESS IN DOUGLAS MIDLINE RUNNING NS@100ML/HR. BED IS LOW AND LOCKED, HOB ELEVATED IN SEMI FOWLERS, SIDE RAILS UP X3, CALL LIGHT WITHIN REACH. INFORMED PATIENT THERE IS A DISCHARGE ORDER BUT WE ARE WAITING FOR HIM TO HAVE A BOWEL MOVEMENT. WILL CONTINUE TO MONITOR THROUGHOUT SHIFT.
[2020-04-15] MEDS: POLYETHYLENE GLYCOL 3350 17 GM POWD.PACK PO SCH (22:26)
[2020-04-15] MEDS: ENOXAPARIN SODIUM 30 MG/0.3 ML DISP.SYRIN SQ SCH (22:32)
[2020-04-16] VITALS: BP_SYST 114; BP_DIAS 57; BP_DIAS 60
[2020-04-16] MEDS: HYDROMORPHONE INJ 2 MG/ML DISP.SYRIN IV PRN ×2 (03:49→08:18)
[2020-04-16 04:00] VITALS: BP 122/62
--- NOTE | 2020-04-16 07:30 | NUR ---
MINILAB OPERATOR CLOSING NOTE PATIENT RESTING IN BED. A/OX4. REMAINS TOLERATING ROOM AIR. NO RESP DISTRESS. MANAGED PAIN THROUGHOUT SHIFT WITHIN DILAUDID. EXTERNAL TELE MONITOR READS SINUS TACH. NO DISTRESS. IV ACCESS IN DOUGLAS MIDLINE RUNNING NS@100ML/HR. BED REMAINS LOW AND LOCKED, HOB ELEVATED IN SEMI FOWLERS, SIDE RAILS UP X3, CALL LIGHT WITHIN REACH. PATIENT WAS ABLE TO HAVE A BM, BROWN, HARD, FORMED STOOL. WILL ENDORSE TO NEXT SHIFT.
--- NOTE | 2020-04-16 07:53 | NUR ---
MS/RN OPENING NOTE RECEIVED PATIENT FROM GAS FITTER HELPER NURSE. PATIENT IS AWAKE IN BED, A/O X4. NO ACUTE DISTRESS NOTED AT THIS TIME. SAFETY MEASURES IN PLACE, BED LOCKED AND IN LOWEST POSITION, CALL LIGHT WITHIN REACH. WILL CONTINUE TO MONITOR AND ENSURE SAFETY.
[2020-04-16 07:57] LABS: CALCIUM, SERUM 8.6 mg/dL (8.5-10.1); CREATININE 2.2 mg/dL (0.6-1.3); POTASSIUM 3.6 mmol/L (3.5-5.1)
[2020-04-16 08:00] VITALS: BP 109/90
[2020-04-16] MEDS: PANTOPRAZOLE 40 MG TABLET.DR PO SCH (08:17)
[2020-04-16] MEDS: SENNOSIDES/DOCUSATE SODIUM 1 TAB TABLET PO SCH (08:55)
[2020-04-16] MEDS: cetrizine 10 MG TABLET PO SCH (08:55)
[2020-04-16] MEDS: LACTULOSE 10 G/15 ML UDC (PYXIS) PO SCH (08:55)
[2020-04-16] MEDS: CEFEPIME 2 GM in IV D5W 100 ML IV SCH (08:55)
[2020-04-16] MEDS: ENSURE ENLIVE 237 ML LIQUID (VANILLA) PO SCH (09:01)
[2020-04-16] MEDS: THERAHONEY GEL 1.5 OZ TUBE TP SCH ×2 (09:02→09:03)
[2020-04-16] MEDS: UREA 10% -AHA 4% CREAM 57 GM TUBE TP SCH (09:03)
--- NOTE | 2020-04-16 11:22 | NUR ---
MS/RN DISCHARGED PATIENT DISCHARGED TO HOME IN MEDICALLY STABLE CONDITION. ALL PERSONAL BELONGINGS WITH PATIENT AND SIGNED OFF FOR ON BELONGING LIST. DOUGLAS MIDLINE REMOVED, PRESSURE DRESSING APPLIED. NAME BAND AND TELE MONITOR REMOVED. EDUCATED PATIENT ON DISCHARGE MEDICATIONS THAT WERE PRESCRIBED PER MD ORDER AND INFORMED OF POSSIBLE SIDE EFFECTS . PATIENT STATED UNDERSTANDING. PATIENT LEFT UNIT FLOOR ON PERSONALLY MECHANICAL WHEELCHAIR IN STABLE CONDITION.
--- NOTE | 2020-04-16 15:55 | NUR ---
discharge home today with personal transportation arrangement .Spoke with Shantel deleon [facility] [phone] made aware of patient discharge. Addendum: 04/16/20 at 1556 by LIOR CHRISTIE RN Amended: Links added.
== END 2020-04-16 11:00 | disposition home health service (06) | DRG 673 ==
LOC: ER 17:47 → TRANSITION 21:46 → MED 23:01 → TELE 04-11 00:50
PROVIDERS: ADMIT Nurse Practitioner Acute Care; ATTEND Student in an Organized Health Care Education/Training Program
PROC: 05HC33Z Insertion of Infusion Device into Left Basilic Vein, Percutaneous Approach (ICD-10-PCS; principal; 2020-04-11)
PROC: 0JBR0ZZ Excision of Left Foot Subcutaneous Tissue and Fascia, Open Approach (ICD-10-PCS; 2020-04-12)
PROC: 0JBQ0ZZ Excision of Right Foot Subcutaneous Tissue and Fascia, Open Approach (ICD-10-PCS; 2020-04-12)
PROC: 0JB90ZZ Excision of Buttock Subcutaneous Tissue and Fascia, Open Approach (ICD-10-PCS; 2020-04-12)
PROC: 05HB33Z Insertion of Infusion Device into Right Basilic Vein, Percutaneous Approach (ICD-10-PCS; 2020-04-12)
DX: T83.511A Infection and inflammatory reaction due to indwelling urethral catheter, initial encounter (principal); L89.154 Pressure ulcer of sacral region, stage 4; L89.523 Pressure ulcer of left ankle, stage 3; L89.513 Pressure ulcer of right ankle, stage 3; L89.893 Pressure ulcer of other site, stage 3; A41.9 Sepsis, unspecified organism; L89.324 Pressure ulcer of left buttock, stage 4; N17.0 Acute kidney failure with tubular necrosis; R65.20 Severe sepsis without septic shock; E87.1 Hypo-osmolality and hyponatremia; M48.54XA Collapsed vertebra, not elsewhere classified, thoracic region, initial encounter for fracture; E87.2 Acidosis; Z16.35 Resistance to multiple antimicrobial drugs; G82.20 Paraplegia, unspecified; Y84.6 Urinary catheterization as the cause of abnormal reaction of the patient, or of later complication, without mention of misadventure at the time of the procedure; Y92.129 Unspecified place in nursing home as the place of occurrence of the external cause; K76.0 Fatty (change of) liver, not elsewhere classified; D63.8 Anemia in other chronic diseases classified elsewhere; E78.5 Hyperlipidemia, unspecified; I10 Essential (primary) hypertension; K21.9 Gastro-esophageal reflux disease without esophagitis; R13.10 Dysphagia, unspecified; N31.9 Neuromuscular dysfunction of bladder, unspecified; Z93.3 Colostomy status; Z87.442 Personal history of urinary calculi; Z87.440 Personal history of urinary (tract) infections; Z86.718 Personal history of other venous thrombosis and embolism; Z89.431 Acquired absence of right foot; Z88.1 Allergy status to other antibiotic agents; Z88.5 Allergy status to narcotic agent; Z88.0 Allergy status to penicillin; Z79.899 Other long term (current) drug therapy; E87.5 Hyperkalemia; R80.9 Proteinuria, unspecified; R59.0 Localized enlarged lymph nodes; N05.9 Unspecified nephritic syndrome with unspecified morphologic changes; E88.09 Other disorders of plasma-protein metabolism, not elsewhere classified; F17.200 Nicotine dependence, unspecified, uncomplicated; E83.41 Hypermagnesemia; E83.39 Other disorders of phosphorus metabolism; D50.9 Iron deficiency anemia, unspecified; E86.0 Dehydration; G89.4 Chronic pain syndrome; K59.00 Constipation, unspecified; E86.1 Hypovolemia; S24.102S Unspecified injury at T2-T6 level of thoracic spinal cord, sequela; V89.2XXA Person injured in unspecified motor-vehicle accident, traffic, initial encounter; Y92.410 Unspecified street and highway as the place of occurrence of the external cause; Z82.0 Family history of epilepsy and other diseases of the nervous system; M43.14 Spondylolisthesis, thoracic region; L85.3 Xerosis cutis; N20.0 Calculus of kidney; E87.6 Hypokalemia
CPT/HCPCS: 36410; 36415; 36600; 71250-TC; 80048-TC; 80053-TC; 80061-TC; 81001; 82232; 82550-TC; 82570-TC; 82803-TC; 83516; 83540-TC; 83615-TC; 83735-TC; 83935-TC; 83970; 84100-TC; 84155; 84155-TC; 84165; 84300-TC; 84439-TC; 84443-TC; 84550-TC; 85025-TC; 86060; 86225; 86235; 87040-TC; 87086-TC; 87186-TC; A6253; A6403; C9803; G0378; J0692; J0770; J1170; J1200; J1650; J2405; J2916; J3370; J7030; J7060; Q0162

== ENCOUNTER 2020-05-13 09:15 | Inpatient (IN) | payer MEDICARE ==
[~2020-05-13] VITALS: Ht 190.5 cm; Wt 107.1 kg
[~2020-05-13 09:15] MED LIST changes: +CEFD300C3 PO; -CEFE2VIA11 IV; +COLL30OI TP; -LISI10TA5 PO; -Linezolid PO; +POLY17PO4 PO
[2020-05-13 10:05] VITALS: BP 137/84
--- NOTE | 2020-05-13 11:33 | NUR ---
MS FLORES ADMITTING NOTES PT DIRECT ADMITTED TO UNIT FROM HOME AT [address] GREGORIO YANG. PT CAME ON MECHANICAL WHEELCHAIR AND ASSISTED IN TRANSFERRING HIM TO BED. A/O X4. ABLE TO MAKE NEEDS KNOWN, DENIES PAIN OR ANY DISCOMFORTS DURING ADMISSION. ORIENTED TO STAFF AND UNIT. ON ROOM AIR, BREATHING EVEN AND UNLABORED. PT VERBALIZED THAT HE CAME HERE FOR UTI. PT WITH PLASENCIA IN PLACE WITH PALE CLOUDY WITH SEDIMENTS URINE OUTPUT NOTED TO COLLECTING URINARY BAG. PT HAS NO IV ACCESS, WILL INSERT ONE. SAFETY MEASURES INITIATED: BED PLACED IN LOWEST LOCKED POSITION WITH SR --UP X2. CALL LIGHT AND BEDSIDE TABLE PLACED W/I EASY REACH OF PT. WILL CONTINUE TO MONITOR PT. Addendum: 05/13/20 at 1544 by IBETH JAMES RN CORRECTION: PT NOT ON PLASENCIA CATHETER BUT WITH SUPRA-PUBIC CATHETER.
[2020-05-13 13:00] VITALS: BP 134/84
[2020-05-13] MEDS ORDERED: Z GUARD REMEDY 2 OZ OINT TP PRN (14:30)
[2020-05-13] MEDS ORDERED: ONDANSETRON HCL/PF 4 MG/2 ML VIAL IVP PRN (14:30)
[2020-05-13] MEDS ORDERED: ACETAMINOPHEN 325 MG TABLET PO PRN ×2 (14:30)
[2020-05-13] MEDS ORDERED: BISACODYL (5 MG) 5 MG TABLET.DR PO PRN (14:30)
[2020-05-13 15:18] LABS: BASOPHILS # (AUTO) 0.1 /CMM (0.0-0.2); BASOPHILS % (AUTO) 0.6 % (0.0-2.0); EOSINOPHILS % (AUTO) 4.3 % (0.0-6.0); HEMATOCRIT 31 % (39-51); HEMOGLOBIN 9.5 g/dL (13.5-17.5); LYMPHOCYTES # (AUTO) 1.9 /CMM (0.8-4.8); LYMPHOCYTES % (AUTO) 14.9 % (20.0-44.0); MEAN CORPUSCULAR HGB CONC 31 g/dl (31.0-36.0); MEAN CORPUSCULAR VOLUME 74 fL (80-96); MONOCYTES # (AUTO) 0.8 /CMM (0.1-1.30); MONOCYTES % (AUTO) 6.3 % (2.0-12.0); NEUTROPHILS # (AUTO) 9.4 /CMM (1.8-8.9); NEUTROPHILS % (AUTO) 73.9 % (43.0-81.0); PLATELET COUNT (AUTO) 479 /CMM (150-450); RED BLOOD CELL COUNT(AUTO) 4.23 MIL/uL (4.5-6.0); WHITE BLOOD COUNT (AUTO) 12.7 K/uL (4.3-11.0)
[2020-05-13 15:48] LABS: ALBUMIN 2.6 g/dL (3.4-5.0); BILIRUBIN,TOTAL 0.2 mg/dL (0.2-1.0); CALCIUM, SERUM 8.9 mg/dL (8.5-10.1); CREATININE 3.2 mg/dL (0.6-1.3); MAGNESIUM 1.9 mg/dL (1.8-2.4); PHOSPHORUS 4.1 mg/dL (2.5-4.9); POTASSIUM 3.8 mmol/L (3.5-5.1); TOTAL PROTEIN, SERUM 8.7 g/dL (6.4-8.2)
[2020-05-13 16:00] VITALS: BP 152/93
[2020-05-13 16:15] LABS: EOSINOPHILS % (MANUAL) 5 % (0-4); LYMPHOCYTES % (MANUAL) 11 % (16-48); MONOCYTES % (MANUAL) 5 % (0-11.0); NEUTROPHILS % (MANUAL) 79 (42-76)
[2020-05-13] MEDS: POLYETHYLENE GLYCOL 3350 17 GM POWD.PACK PO SCH (17:00)
[2020-05-13] MEDS: HYDROMORPHONE INJ 2 MG/ML DISP.SYRIN IV PRN ×2 (17:05→21:02)
--- NOTE | 2020-05-13 17:08 | NUR ---
RN NOTES PT C/O ACHING LOWER BACK PAIN WITH SCALE OF 8/10. PRN DILAUDID 2MG/ML IVP ADMINISTERED AT 17:05. WILL CONTINUE TO MONITOR AND REASSESS PT.
--- NOTE | 2020-05-13 18:39 | NUR ---
MS RN CLOSING NOTES: PATIENT RESTING IN BED AT THIS TIME. A/O X4. ABLE TO VERBALIZED NEEDS. ON ROOM AIR, TOLERATING WELL WITH NO SOB NOTED. IV ACCESS ON LFA #20G PATENT AND INTACT. SUPRAPUBIC CATHETER IN PLACE WITH PALE CLOUDY WITH SEDIMENT URINE OUTPUT NOTED. ALL NEEDS AND CARE ATTENDED WELL. SAFETY MEASURES IN PLACE: BED LOCKED AND IN LOWEST POSITION. SIDE RAILS UP X2. CALL LIGHT WITHIN REACH. WILL ENDORSE SOM TO WIG DRESSER NURSE.
[2020-05-13 19:00] LABS: COLOR,URINE YELLOW (YELLOW)
[2020-05-13 19:02] LABS: PH,URINE 8.5 (5.0-8.0); PROTEIN,URINE 3+ mg/dl (NEGATIVE); UGLUCOSE NEGATIVE (NEGATIVE)
[2020-05-13 19:03] LABS: BILIRUBIN,URINE NEGATIVE (NEGATIVE); LEUKOCYTE ESTERASE ,URINE 3+ (NEGATIVE); NITRITE, URINE POSITIVE (NEGATIVE); UROBILINOGEN,URINE 0.2 EU/dL (0.2)
[2020-05-13 19:18] LABS: RBC,URINE 81-100 /HPF (0-2); WBC,URINE TOO NUMEROUS TO COUN /HPF (0-3)
[2020-05-13 19:19] LABS: BACTERIA,URINE 4+ /HPF (None Seen); SQUAMOUS EPITHELIAL CELL,UR 0-2 /HPF (None Seen)
[2020-05-13 20:00] VITALS: BP 120/79
--- NOTE | 2020-05-13 20:00 | NUR ---
ms rn notes PATIENT IN BED A/O X4. ABLE TO VERBALIZED NEEDS. ON ROOM AIR, NO SOB NO DISTRESS NOTED. IV ACCESS ON LFA #20G PATENT AND INTACT. WITH IVF OF NS AT 100CC/HR INFUSING WELL . DUE MEDS GIVEN ORDERED . ON CLEAR LIQUID DIET.SUPRAPUBIC CATHETER IN PLACE WITH PALE CLOUDY WITH SEDIMENT URINE OUTPUT NOTED. ALL NEEDS AND CARE ATTENDED TOO. SAFETY MEASURES IN PLACE: BED LOCKED AND IN LOWEST POSITION. SIDE RAILS UP X2. CALL LIGHT WITHIN REACH. WILL CONTINUE TO MONITOR.V/S STABLE AFEBRILE.
[2020-05-13] MEDS: IV NS 0.9% 1,000 ML IV PRN (21:02)
[2020-05-14] MEDS: HYDROMORPHONE INJ 2 MG/ML DISP.SYRIN IV PRN ×5 (01:00→21:05)
[2020-05-14 06:40] LABS: BASOPHILS % (AUTO) 0.5 % (0.0-2.0); EOSINOPHILS % (AUTO) 4.6 % (0.0-6.0); HEMATOCRIT 28 % (39-51); HEMOGLOBIN 8.8 g/dL (13.5-17.5); LYMPHOCYTES # (AUTO) 1.8 /CMM (0.8-4.8); LYMPHOCYTES % (AUTO) 17.6 % (20.0-44.0); MEAN CORPUSCULAR HGB CONC 31 g/dl (31.0-36.0); MEAN CORPUSCULAR VOLUME 73 fL (80-96); MONOCYTES # (AUTO) 0.7 /CMM (0.1-1.30); NEUTROPHILS # (AUTO) 7.1 /CMM (1.8-8.9); NEUTROPHILS % (AUTO) 70.3 % (43.0-81.0); PLATELET COUNT (AUTO) 428 /CMM (150-450); RED BLOOD CELL COUNT(AUTO) 3.87 MIL/uL (4.5-6.0); WHITE BLOOD COUNT (AUTO) 10.1 K/uL (4.3-11.0)
--- NOTE | 2020-05-14 07:08 | NUR ---
ms rn notes Pts in bed awake no c/o of paiin. no sob no distress noted .will endorse to rn day shift for continuity of care.
[2020-05-14 07:14] LABS: CALCIUM, SERUM 8.6 mg/dL (8.5-10.1); MAGNESIUM 1.9 mg/dL (1.8-2.4); PHOSPHORUS 4.5 mg/dL (2.5-4.9)
[2020-05-14 07:26] LABS: CREATININE 3.2 mg/dL (0.6-1.3); THYROID STIMULATING HORMONE 1.953 uIU/mL (0.358-3.74)
[2020-05-14] MEDS: PANTOPRAZOLE 40 MG TABLET.DR PO SCH (07:55)
--- NOTE | 2020-05-14 08:00 | NUR ---
RN Opening note Received patient in bed, awaken able to responds all stimuli, Pt does no c/o pain or distress. Skin is warm to touch keep clean/dry intact IV site, respiratory even and unlabored on room air O2sat 98%. Kept locked bed with elevated HOB for aspiration precaution and ensure airway and lowest bed foe safety. Call light within reach, will continue to monitor.
--- NOTE | 2020-05-14 08:16 | NUR ---
WOUND CARE CONSULT: PT PRESENTS WITH LEFT LOWER EYELID SWELLING AND DISCOMFORT. RN TO DISCUSS WITH PMD TODAY. PT ALSO PRESENTS WITH MULTIPLE AREAS OF SCARRING, LEFT BUTTOCKS WOUND AND LOWER EXTREMITY WOUNDS, PRESENT ON ADMISSION. RECOMMEND SURGICAL AND DPM CONSULTS. DR JAVED AND DR GONZALEZ NOTIFIED OF CONSULT REQUESTS. PT IS ON YOAN ISOFLEX LOW AIRLOSS BED AND STATES IS COMFORTABLE ON THE BED. RECOMMENDATIONS MADE FOR SKIN PROTECTION. DISCUSSED WITH NURSING STAFF. MD IN AGREEMENT WITH PLAN OF CARE.
[2020-05-14 08:20] VITALS: BP 151/79
[2020-05-14] MEDS: POLYETHYLENE GLYCOL 3350 17 GM POWD.PACK PO SCH ×2 (09:00→17:00)
[2020-05-14] MEDS ORDERED: LISINOPRIL (10MG) 10 MG TABLET PO SCH (09:00)
[2020-05-14] MEDS: THERAHONEY GEL 1.5 OZ TUBE TP SCH (09:21)
[2020-05-14] MEDS ORDERED: LIDOCAINE 1%-EPI 1:100,000 20 ML VIAL TP ONE (10:30)
[2020-05-14] MEDS ORDERED: CEFEPIME 2 GM in IV D5W 100 ML IV SCH (11:00)
--- NOTE | 2020-05-14 11:16 | NUR ---
Patient received wound debridement order and signed on consent.
--- NOTE | 2020-05-14 16:24 | NUR ---
Spoke with pharmacy Lidocaine epi 1:100,000 20 ml vial is not available, will clarify with MD.
[2020-05-14 16:49] VITALS: BP 116/70
[2020-05-14] MEDS: AMMONIUM LACTATE 227 GM BOTTLE TP SCH (17:46)
--- NOTE | 2020-05-14 18:00 | NUR ---
RN closing Patient in bed resting, does no appears distress or discomfort. Skin is warm to touch, keep clean/dry, intact new midline on right upper arm. Respiratory even and unlabored on room air O2sat 98%. Kept elevated HOB for ensure air way and aspiration precaution and lowest bed for safety. Call light within reach, will endorse security shift manager
[2020-05-14 20:00] VITALS: BP 127/64
--- NOTE | 2020-05-14 20:04 | NUR ---
RN OPENING NOTES PT RECEIVED BEDSIDE. ALERT AND ORIENTED X4. CALM, COOPERATIVE. TONGAN SPEAKING. NO PAIN, NO COMPLAINTS, NO SIGNS OF DISTRESS NOTED AT THE MOMENT. SUPRAPUBIC CATHETER INTACT. 1050 ML DRAINED. CLEAN, DRY. RIGHT UPPER ARM MIDLINE. INTACT, PATENT, FLUSHES WELL. NO OCCLUSIONS, NO INFILTRATION NOTED AT THIS TIME. PT RECEIVED DILAUDID AT 1800. WILL CONTINUE TO MONITOR FOR PAIN. WILL REASSESS. WILL CONTINUE TO MONITOR. WILL CONTINUE PLAN OF CARE.
[2020-05-14] MEDS ORDERED: diphenhydrAMINE HCL 50 MG/ML VIAL IV PRN (21:00)
[2020-05-14] MEDS: LORATADINE 10 MG TABLET PO SCH (21:02)
--- NOTE | 2020-05-14 21:05 | NUR ---
RN NOTE - DILAUDID PT C/O ACHING NECK PAIN WITH SCALE OF 8/10. ADMINISTERED DILAUDID 2GM/ ML. WILL REASSESS. WILL CONTINUE TO MONITOR.
[2020-05-14] MEDS ORDERED: GENTAMICIN 200 MG in IV D5W 100 ML IV ONE (21:30)
[2020-05-15] MEDS: HYDROMORPHONE INJ 2 MG/ML DISP.SYRIN IV PRN ×4 (01:15→21:04)
--- NOTE | 2020-05-15 01:47 | NUR ---
RN NOTE- CUCO PT C/O OF BACK PAIN 11/16. ADMIN. CUCO @0115. WILL REASSESS. WILL CONTINUE TO MONITOR.
--- NOTE | 2020-05-15 05:20 | NUR ---
RN NOTE - DILAUDID PT C/O OF ACHING BACK 11/16. ADMIN DILAUDID 2MG IV PUSH. WILL REASSESS. WILL CONTINUE TO MONITOR.
--- NOTE | 2020-05-15 06:53 | NUR ---
RN NOTES - AM LABS PT REFUSED AM LABS. DID NOT WANT TO GET BLOOD DRAWN. HE STATED THAT HE WAS A "HARD STICK" AND DID NOT WANT ANYONE TO TRY. PT STATED HE HAD SPOKEN AND NOTIFIED MD GREGORIO YANG.
--- NOTE | 2020-05-15 07:28 | NUR ---
RN CLOSING NOTES PT LAYING IN BED. ALERT AND ORIENTED X4. CALM, COOPERATIVE. BERMUDIAN SPEAKING. NO PAIN, NO COMPLAINTS, NO SIGNS OF DISTRESS NOTED AT THE MOMENT. SUPRAPUBIC CATHETER INTACT. 1000 ML DRAINED. CLEAN, DRY. RIGHT UPPER ARM MIDLINE. INTACT, PATENT, FLUSHES WELL. NO OCCLUSIONS, NO INFILTRATION NOTED AT THIS TIME. PT RECEIVED TYLENOL AND DILAUDID. SEE RN NOTES. WILL CONTINUE TO MONITOR FOR PAIN. WILL REASSESS. PT RECEIVED ONE TIME GENTAMICIN. PT REFUSED AM BLOOD DRAWS. MD YANG NOTIFIED. WILL CONTINUE TO MONITOR. WILL ENDORSE TO UPCOMING SHIFT. WILL CONTINUE PLAN OF CARE.
[2020-05-15 08:00] VITALS: BP_SYST 116; BP_SYST 124; BP_DIAS 55; BP_DIAS 62
[2020-05-15 08:06] LABS: PTH, INTACT 38 pg/mL (15-65)
[2020-05-15] MEDS: POLYETHYLENE GLYCOL 3350 17 GM POWD.PACK PO SCH ×2 (09:00→17:00)
[2020-05-15] MEDS: LORATADINE 10 MG TABLET PO SCH (09:49)
[2020-05-15] MEDS: PANTOPRAZOLE 40 MG TABLET.DR PO SCH (09:49)
[2020-05-15] MEDS: THERAHONEY GEL 1.5 OZ TUBE TP SCH ×2 (09:51)
[2020-05-15] MEDS: AMMONIUM LACTATE 227 GM BOTTLE TP SCH ×2 (09:51→17:20)
[2020-05-15] MEDS ORDERED: HYDROMORPHONE INJ 2 MG/ML DISP.SYRIN IV ONE (11:00)
--- NOTE | 2020-05-15 11:02 | NUR ---
RN NOTE Ok per Rob TACTICAL AIR CONTROL PARTY MANAGER to admin Dilauded 2mg IM one time now. Patient is c/o of pain at midline site. Waiting for midline nurse for insertion. Swager Operator and charge account clerk aware.
[2020-05-15] MEDS ORDERED: HYDROMORPHONE INJ 2 MG/ML DISP.SYRIN IM ONE (11:05)
[2020-05-15 11:53] LABS: BASOPHILS % (AUTO) 0.1 % (0.0-2.0); EOSINOPHILS % (AUTO) 6.5 % (0.0-6.0); HEMATOCRIT 32 % (39-51); HEMOGLOBIN 9.8 g/dL (13.5-17.5); LYMPHOCYTES # (AUTO) 1.5 /CMM (0.8-4.8); LYMPHOCYTES % (AUTO) 10.6 % (20.0-44.0); MEAN CORPUSCULAR HGB CONC 31 g/dl (31.0-36.0); MEAN CORPUSCULAR VOLUME 72 fL (80-96); MONOCYTES # (AUTO) 0.4 /CMM (0.1-1.30); MONOCYTES % (AUTO) 2.8 % (2.0-12.0); NEUTROPHILS # (AUTO) 11.2 /CMM (1.8-8.9); PLATELET COUNT (AUTO) 553 /CMM (150-450); RED BLOOD CELL COUNT(AUTO) 4.39 MIL/uL (4.5-6.0)
[2020-05-15 12:02] LABS: CALCIUM, SERUM 8.9 mg/dL (8.5-10.1); CREATININE 3.4 mg/dL (0.6-1.3); POTASSIUM 4.6 mmol/L (3.5-5.1)
[2020-05-15 12:55] LABS: EOSINOPHILS % (MANUAL) 7 % (0-4); LYMPHOCYTES % (MANUAL) 12 % (16-48); MONOCYTES % (MANUAL) 2 % (0-11.0); NEUTROPHILS % (MANUAL) 79 (42-76)
--- NOTE | 2020-05-15 18:47 | NUR ---
RN CLOSING NOTE Patient is resting in bed, A/O x4, showing no signs of acute distress or SOB, stable on room air. IV line in the RAC #20g is clean and intact flushing well. Patient denies any pain or discomfort at this time. All patient needs met, all due medications given, patient kept clean and dry throughout shift. Bed is in lowest position, side rails x2 in upright position call light is within reach, fall safety and aspiration precautions enforced. Will endorse to drum worker for SOM.
--- NOTE | 2020-05-15 19:11 | NUR ---
MS RN: CONTINUITY OF CARE Patient sitting up in bed, A/O x4, on room air tolerating well, denies SOB. Patient voices waiting for MIDLINE to be re inserted, IV peripheral line in Right AC intact. No c/o pain. Supra pubic cath in place, urine yellow and cloudy. Fall precaution maintained.
[2020-05-15 20:00] VITALS: BP 111/76
[2020-05-15] MEDS: DOXYCYCLINE HYCLATE (100 MG) 100 MG TABLET PO SCH (21:07)
[2020-05-15] MEDS: MUPIROCIN OINT 2% 22 GM TUBE NS SCH (21:10)
[2020-05-16] MEDS: HYDROMORPHONE INJ 2 MG/ML DISP.SYRIN IV PRN ×6 (01:04→22:12)
--- NOTE | 2020-05-16 07:29 | NUR ---
MS RN: END OF SHIFT REPORT Stable oxygen on room air. On IV Gentamicin, afebrile. Suprapubic cath intact, urine yellow and cloudy. Lower back pain controlled with Dilaudid. No BM this shift. Right AC peripheral line, patent and intact. Awaits MIDLINE insertion, endorsed to SANDRA Gilbert.
--- NOTE | 2020-05-16 07:30 | NUR ---
MS/RN OPENING NOTE Received patient awake in bed, A&O x 4, able to make needs known. All needs met and attended to. No s/s of pain/discomfort at this time. Breathing even and non-labored on RA, saturating at 98%. No respiratory or cardiac distress noted. IV access noted on RAC #20g, patent and intact, and flushing well. Suprapubic cath noted, draining john cloudy urine well. Bed locked to its lowest position, side rails x 2 up, call light in hand. Will continue with current medical management.
[2020-05-16 07:42] LABS: BASOPHILS # (AUTO) 0.1 /CMM (0.0-0.2); BASOPHILS % (AUTO) 0.9 % (0.0-2.0); EOSINOPHILS % (AUTO) 7.2 % (0.0-6.0); HEMATOCRIT 27 % (39-51); HEMOGLOBIN 8.5 g/dL (13.5-17.5); LYMPHOCYTES # (AUTO) 1.7 /CMM (0.8-4.8); LYMPHOCYTES % (AUTO) 16.4 % (20.0-44.0); MEAN CORPUSCULAR HGB CONC 32 g/dl (31.0-36.0); MEAN CORPUSCULAR VOLUME 73 fL (80-96); MONOCYTES # (AUTO) 0.5 /CMM (0.1-1.30); MONOCYTES % (AUTO) 4.9 % (2.0-12.0); NEUTROPHILS # (AUTO) 7.5 /CMM (1.8-8.9); NEUTROPHILS % (AUTO) 70.6 % (43.0-81.0); PLATELET COUNT (AUTO) 474 /CMM (150-450); RED BLOOD CELL COUNT(AUTO) 3.67 MIL/uL (4.5-6.0); WHITE BLOOD COUNT (AUTO) 10.6 K/uL (4.3-11.0)
[2020-05-16 08:00] VITALS: BP 124/68
[2020-05-16 08:05] LABS: CALCIUM, SERUM 8.6 mg/dL (8.5-10.1); CREATININE 3.5 mg/dL (0.6-1.3); POTASSIUM 3.7 mmol/L (3.5-5.1)
[2020-05-16] MEDS: PANTOPRAZOLE 40 MG TABLET.DR PO SCH (08:55)
[2020-05-16] MEDS: POLYETHYLENE GLYCOL 3350 17 GM POWD.PACK PO SCH ×2 (08:55→17:00)
[2020-05-16] MEDS: DOXYCYCLINE HYCLATE (100 MG) 100 MG TABLET PO SCH ×2 (08:55→21:36)
[2020-05-16] MEDS: LORATADINE 10 MG TABLET PO SCH (08:55)
[2020-05-16] MEDS: MUPIROCIN OINT 2% 22 GM TUBE NS SCH ×2 (08:56→21:38)
[2020-05-16] MEDS: LEVOFLOXACIN 500 MG /D5W 100ML 500 MG in PREMIX 1 EA IV SCH (08:56)
[2020-05-16] MEDS ORDERED: GENTAMICIN 120 MG in IV D5W 100 ML IV SCH (09:00)
[2020-05-16] MEDS: THERAHONEY GEL 1.5 OZ TUBE TP SCH ×2 (09:20→09:24)
[2020-05-16] MEDS: AMMONIUM LACTATE 227 GM BOTTLE TP SCH ×2 (09:20→18:00)
--- NOTE | 2020-05-16 14:05 | NUR ---
MS/RN NOTE Beto BURK, inserted midline access on CLAUDIA #[id number], patent and intact, blood return noted, and flushing well.
[2020-05-16 16:00] VITALS: BP 158/95
[2020-05-16] MEDS: IV NS 0.9% 1,000 ML IV PRN (16:27)
--- NOTE | 2020-05-16 19:30 | NUR ---
MS RN OPENING NOTE RECEIVED PATIENT IN BED. A/OX4. TOLERATING ROOM AIR. RESPIRATIONS ARE EVEN AND UNLABORED. NO C/O PAIN AT THIS TIME. IN NO APPARENT DISTRESS. IV ACCESS IN RAC#20 PATENT AND SALINE LOCKED. CLAUDIA MIDLINE RUNNING NS@100ML/HR. SUPRAPUBIC CATHETER IS PRESENT, DRAINING TO GRAVITY. BED IS LOW AND LOCKED, HOB IN SEMI FOWLERS, SIDE RAILS UP X2, CALL LIGHT WITHIN REACH. WILL CONTINUE TO MONITOR.
--- NOTE | 2020-05-16 19:30 | NUR ---
MS/RN CLOSING NOTE Patient awake in bed, watching TV, A&O x 4. All needs met and attended to. No s/s of pain/discomfort at this time. Breathing even and non-labored on RA, saturating at 98%. No respiratory or cardiac distress noted. IV access noted on RAC #20g, patent and intact, and flushing well. Suprapubic cath noted, draining john cloudy urine well. Fall precautions maintained. Will endorse to manufacturing shift supervisor nurse.
[2020-05-16 20:00] VITALS: BP 133/88
[2020-05-17] MEDS: HYDROMORPHONE INJ 2 MG/ML DISP.SYRIN IV PRN ×6 (02:12→22:15)
[2020-05-17] MEDS: IV NS 0.9% 1,000 ML IV PRN ×2 (05:31→17:34)
[2020-05-17 07:04] LABS: BASOPHILS # (AUTO) 0.1 /CMM (0.0-0.2); BASOPHILS % (AUTO) 0.8 % (0.0-2.0); EOSINOPHILS % (AUTO) 5.7 % (0.0-6.0); HEMATOCRIT 27 % (39-51); HEMOGLOBIN 8.6 g/dL (13.5-17.5); LYMPHOCYTES # (AUTO) 1.7 /CMM (0.8-4.8); LYMPHOCYTES % (AUTO) 18.2 % (20.0-44.0); MEAN CORPUSCULAR HGB CONC 31 g/dl (31.0-36.0); MEAN CORPUSCULAR VOLUME 73 fL (80-96); MONOCYTES # (AUTO) 0.6 /CMM (0.1-1.30); MONOCYTES % (AUTO) 6.5 % (2.0-12.0); NEUTROPHILS # (AUTO) 6.4 /CMM (1.8-8.9); NEUTROPHILS % (AUTO) 68.8 % (43.0-81.0); PLATELET COUNT (AUTO) 469 /CMM (150-450); RED BLOOD CELL COUNT(AUTO) 3.76 MIL/uL (4.5-6.0); WHITE BLOOD COUNT (AUTO) 9.3 K/uL (4.3-11.0)
[2020-05-17 07:34] LABS: CREATININE 3.1 mg/dL (0.6-1.3); POTASSIUM 3.9 mmol/L (3.5-5.1)
[2020-05-17 08:00] VITALS: BP 144/80
[2020-05-17] MEDS: PANTOPRAZOLE 40 MG TABLET.DR PO SCH (08:11)
[2020-05-17] MEDS: POLYETHYLENE GLYCOL 3350 17 GM POWD.PACK PO SCH ×2 (08:11→17:28)
[2020-05-17] MEDS: LORATADINE 10 MG TABLET PO SCH (08:11)
[2020-05-17] MEDS: DOXYCYCLINE HYCLATE (100 MG) 100 MG TABLET PO SCH ×2 (08:11→21:00)
[2020-05-17] MEDS: MUPIROCIN OINT 2% 22 GM TUBE NS SCH ×2 (08:12→22:15)
[2020-05-17] MEDS: THERAHONEY GEL 1.5 OZ TUBE TP SCH ×2 (08:13→08:14)
[2020-05-17] MEDS: AMMONIUM LACTATE 227 GM BOTTLE TP SCH ×2 (08:13→17:32)
--- NOTE | 2020-05-17 08:36 | NUR ---
MS RN CLOSING NOTE PATIENT RESTING IN BED. A/OX4. NO RESP DISTRESS. MANAGED PAIN WITH DILAUDID THROUGHOUT NIGHT. IV ACCESS MAINTAINED IN RAC#20 AND . CLAUDIA MIDLINE RUNNING NS@100ML/HR. SUPRAPUBIC CATHETER IS MAINTAINED. BED REMAINS LOW AND LOCKED, HOB IN SEMI FOWLERS, SIDE RAILS UP X2, CALL LIGHT WITHIN REACH. WILL ENDORSE TO NEXT SHIFT.
--- NOTE | 2020-05-17 08:47 | NUR ---
MS/RN Medications Morning medications administered as ordered.
--- NOTE | 2020-05-17 10:00 | NUR ---
MS/RN Pain Complaining of generalized pain 11/16. Dilaudid administered, will monitor effectiveness.
[2020-05-17 11:07] LABS: *SPE A/G RATIO 0.5 (0.7-1.7); *SPE ALBUMIN 2.6 g/dL (2.9-4.4); *SPE ALPHA-1-GLOBULIN 0.3 g/dL (0.0-0.4); *SPE ALPHA-2-GLOBULIN 1.2 g/dL (0.4-1.0); *SPE M-SPIKE Not Observed g/dL (Not Observed); *SPEGAMMA GLOBULIN 2.6 g/dL (0.4-1.8)
[2020-05-17 11:43] LABS: PROSTATE SPECIFIC ANTIGEN SCR 0.42 ng/mL (0.00-4.00)
--- NOTE | 2020-05-17 11:53 | NUR ---
MS/RN S/B Jim CLIENT ONBOARDING ANALYST Seen by CLIENT ONBOARDING ANALYST - await urology consult for bilateral staghorn calculi, Dr Aguilar aware. Continue with wound care as per wound specialized.
--- NOTE | 2020-05-17 14:00 | NUR ---
MS/RN S/B Dr Diaz Seen by Dr Diaz - CT chest without contrast ordered to evaluate for lymphadenopathy.
--- NOTE | 2020-05-17 15:00 | NUR ---
MS/RN CT Chest CT chest negative for any masses or lymphadenopathy.
[2020-05-17 16:00] VITALS: BP 129/66
[2020-05-17] MEDS: FERROUS SULFATE (325 MG) 325 MG/TAB TABLET PO SCH (17:28)
--- NOTE | 2020-05-17 18:29 | NUR ---
MS/RN End note Pain remains in stable condition, all needs attended. Last pain medication administered at 1814.
[2020-05-17 20:00] VITALS: BP 153/79
[2020-05-18] MEDS: HYDROMORPHONE INJ 2 MG/ML DISP.SYRIN IV PRN ×6 (02:27→23:34)
[2020-05-18] MEDS: IV NS 0.9% 1,000 ML IV PRN ×2 (02:36→13:07)
[2020-05-18] MEDS: PANTOPRAZOLE 40 MG TABLET.DR PO SCH (07:50)
[2020-05-18 07:51] LABS: BASOPHILS % (AUTO) 0.4 % (0.0-2.0); EOSINOPHILS % (AUTO) 5.3 % (0.0-6.0); HEMATOCRIT 27 % (39-51); HEMOGLOBIN 8.4 g/dL (13.5-17.5); LYMPHOCYTES # (AUTO) 1.4 /CMM (0.8-4.8); LYMPHOCYTES % (AUTO) 15.1 % (20.0-44.0); MEAN CORPUSCULAR HGB CONC 31 g/dl (31.0-36.0); MEAN CORPUSCULAR VOLUME 73 fL (80-96); MONOCYTES # (AUTO) 0.5 /CMM (0.1-1.30); MONOCYTES % (AUTO) 5.1 % (2.0-12.0); NEUTROPHILS % (AUTO) 74.1 % (43.0-81.0); PLATELET COUNT (AUTO) 491 /CMM (150-450); RED BLOOD CELL COUNT(AUTO) 3.69 MIL/uL (4.5-6.0); WHITE BLOOD COUNT (AUTO) 9.5 K/uL (4.3-11.0)
[2020-05-18 08:00] VITALS: BP 137/81
[2020-05-18 08:26] LABS: CALCIUM, SERUM 8.8 mg/dL (8.5-10.1); CREATININE 2.7 mg/dL (0.6-1.3); POTASSIUM 3.6 mmol/L (3.5-5.1)
[2020-05-18] MEDS: LORATADINE 10 MG TABLET PO SCH (08:31)
[2020-05-18] MEDS: DOXYCYCLINE HYCLATE (100 MG) 100 MG TABLET PO SCH ×2 (08:31→21:19)
[2020-05-18] MEDS: FERROUS SULFATE (325 MG) 325 MG/TAB TABLET PO SCH ×2 (08:31→16:10)
[2020-05-18] MEDS: POLYETHYLENE GLYCOL 3350 17 GM POWD.PACK PO SCH ×2 (08:31→16:09)
[2020-05-18] MEDS: MUPIROCIN OINT 2% 22 GM TUBE NS SCH ×2 (08:32→21:22)
[2020-05-18] MEDS: LEVOFLOXACIN 500 MG /D5W 100ML 500 MG in PREMIX 1 EA IV SCH (08:36)
[2020-05-18] MEDS: AMMONIUM LACTATE 227 GM BOTTLE TP SCH ×2 (08:42→16:09)
[2020-05-18] MEDS: THERAHONEY GEL 1.5 OZ TUBE TP SCH ×2 (08:42→08:44)
[2020-05-18 16:00] VITALS: BP 146/77
[2020-05-18] MEDS ORDERED: SOD FERRIC GLUC 125 MG in IV NS 0.9% 100 ML IV ONE (17:30)
--- NOTE | 2020-05-18 18:30 | NUR ---
MS/RN - End of shift summary Patient is A/O x 4, afebrile, pain well controlled with Dilaudid 2 mg IVP every 4 hours as needed, stable on room air, s/p sacral wound debridement today, procedure tolerated well. Will continue with current medical management.
[2020-05-18 20:00] VITALS: BP 148/93
--- NOTE | 2020-05-18 20:00 | NUR ---
sponge diver notes pt seen in bed awake and alert watching TV at this time while checking something on his IPAD .No signs of any distress or any discomfort at this time, NS at 100ml/hr infusing on his left upper midline. kept him warm and comfortable at all times. patient concern when is his pain meds due and write on the board . pt aware that his pain meds due every 4 hrs. Kept him comfortable at all time. place call light at reach. will continue monitoring.
--- NOTE | 2020-05-18 23:35 | NUR ---
console manager notes pt called and complaint of generalized pain Dilaudid given rylee IVP by another nurse. will continue monitoring,.
--- NOTE | 2020-05-19 00:30 | NUR ---
supervisor net making notes checked pt and saw sleeping at this time, breathing even and unlabored, not in any acute distress noted. IVF still infusing. kept him warm and comfortable at all times. place call light at reach. will continue monitoring.
[2020-05-19] MEDS: HYDROMORPHONE INJ 2 MG/ML DISP.SYRIN IV PRN ×5 (03:34→19:49)
[2020-05-19] MEDS: IV NS 0.9% 1,000 ML IV PRN (05:29)
--- NOTE | 2020-05-19 07:00 | NUR ---
MS KIMBERLY CLOSING NOTES PT SLEPT WELL AFTER PAIN MEDS GIVEN AROUND 330 AM . HE WOKE UP THEN ASKING WHAT TIME IS THE NEXT PAIN MEDICATION. I TOLD HIM AND HE REQUEST TO HAVE PAIN MED AROUND 0730. I TOLD HIM I WILL ENDORSE TO DAYSHIFT. ALL MEDS GIVEN AND ALL NEEDS MET. KEPT HIM WARM AND COMFORTABLE AT ALL TIMES. WILL ENDORSE,
--- NOTE | 2020-05-19 07:22 | NUR ---
MS RN OPENING NOTES RECEIVED PATIENT ASLEEP IN BED. HOB ELEVATED. ON ROOM AIR, BREATHING EVEN AND UNLABORED. CLAUDIA MIDLINE INTACT AND PATENT WITH IVF OF NS @100ML/HR INFUSING WELL. SUPRAPUBIC CATHETER PRESENT, DRAINING SLIGHTLY CLOUDY URINE TO GRAVITY. SAFETY MEASURES IN PLACE: BED IS LOW AND LOCKED, SIDE RAILS UP X2, BED ALARM ON AND CALL LIGHT WITHIN REACH. WILL CONTINUE TO MONITOR.
[2020-05-19] MEDS: PANTOPRAZOLE 40 MG TABLET.DR PO SCH (07:37)
--- NOTE | 2020-05-19 07:43 | NUR ---
RN NOTES PT WOKE JUST WOKE-UP AND C/O LOWER BACK PAIN AND REQUESTED FOR PAIN MEDICATION. PRN DILAUDID 2MG/ML IVP ADMINISTERED AT 0739. WILL CONTINUE TO MONITOR AND REASSESS PT.
[2020-05-19 08:00] VITALS: BP 145/80
[2020-05-19] MEDS: POLYETHYLENE GLYCOL 3350 17 GM POWD.PACK PO SCH ×2 (09:00→16:54)
[2020-05-19] MEDS: DOXYCYCLINE HYCLATE (100 MG) 100 MG TABLET PO SCH ×2 (09:01→21:22)
[2020-05-19] MEDS: LORATADINE 10 MG TABLET PO SCH (09:02)
[2020-05-19] MEDS: AMMONIUM LACTATE 227 GM BOTTLE TP SCH ×2 (09:05→16:54)
[2020-05-19] MEDS: MUPIROCIN OINT 2% 22 GM TUBE NS SCH ×2 (09:05→21:22)
[2020-05-19] MEDS: THERAHONEY GEL 1.5 OZ TUBE TP SCH ×2 (09:05→09:06)
[2020-05-19 11:16] LABS: BASOPHILS % (AUTO) 0.5 % (0.0-2.0); EOSINOPHILS % (AUTO) 4.9 % (0.0-6.0); HEMATOCRIT 27 % (39-51); HEMOGLOBIN 8.3 g/dL (13.5-17.5); LYMPHOCYTES # (AUTO) 1.9 /CMM (0.8-4.8); LYMPHOCYTES % (AUTO) 22.3 % (20.0-44.0); MEAN CORPUSCULAR HGB CONC 31 g/dl (31.0-36.0); MEAN CORPUSCULAR VOLUME 74 fL (80-96); MONOCYTES # (AUTO) 0.5 /CMM (0.1-1.30); MONOCYTES % (AUTO) 5.7 % (2.0-12.0); NEUTROPHILS # (AUTO) 5.7 /CMM (1.8-8.9); NEUTROPHILS % (AUTO) 66.6 % (43.0-81.0); PLATELET COUNT (AUTO) 470 /CMM (150-450); RED BLOOD CELL COUNT(AUTO) 3.61 MIL/uL (4.5-6.0); WHITE BLOOD COUNT (AUTO) 8.5 K/uL (4.3-11.0)
[2020-05-19 11:25] LABS: CALCIUM, SERUM 8.5 mg/dL (8.5-10.1); CREATININE 2.7 mg/dL (0.6-1.3); POTASSIUM 3.8 mmol/L (3.5-5.1)
--- NOTE | 2020-05-19 11:43 | NUR ---
RN NOTES PATIENT C/O GENERALIZED PAIN WITH SCALE OF 8/10. PRN DILAUDID 2MG/ML IVP ADMINISTERED AT 1140. WILL CONTINUE TO MONITOR AND REASSESS PT.
[2020-05-19 12:01] LABS: EOSINOPHILS % (MANUAL) 1 % (0-4); LYMPHOCYTES % (MANUAL) 23 % (16-48); MONOCYTES % (MANUAL) 7 % (0-11.0); NEUTROPHILS % (MANUAL) 69 (42-76)
[2020-05-19] MEDS: SOD FERRIC GLUC 125 MG in IV NS 0.9% 100 ML IV SCH (13:50)
[2020-05-19] MEDS ORDERED: SOD FERRIC GLUC 125 MG in IV NS 0.9% 100 ML IV SCH (14:00)
[2020-05-19 16:00] VITALS: BP 143/88
--- NOTE | 2020-05-19 16:29 | NUR ---
RN NOTES PT FOR CT PERCUTANEOUS NEPHROSTOMY. VALERIO LOUIS ON UNIT AND STATED THAT IT WILL BE DONE DEPENDING ON THE RESULTS OF PT'S U/S KIDNEYS. CLARIFIED IF PT WILL BE PLACED NPO AND SHE SAID YES AFTER MIDNIGHT IN CASE PT WILL HAVE THE CT PERCUTANEOUS TOMORROW. PT EXPLAINED SITUATION AND PROCEDURE, VERBALIZED UNDERSTANDING.
--- NOTE | 2020-05-19 18:48 | NUR ---
MS RN CLOSING NOTES PATIENT AWAKE IN BED WATCHING ON HIS IPAD AT THIS TIME. A/O X4. ABLE TO MAKE NEEDS KNOWN. ON ROOM AIR, BREATHING EVEN AND UNLABORED. CLAUDIA MIDLINE INTACT AND PATENT WITH IVF OF NS @100ML/HR INFUSING WELL. PT ALSO HAS IV ACCES ON RAC G#29SUPRAPUBIC CATHETER PRESENT, DRAINING SLIGHTLY CLOUDY URINE TO GRAVITY. SAFETY MEASURES IN PLACE: BED IS LOW AND LOCKED, SIDE RAILS UP X2, BED ALARM ON AND CALL LIGHT WITHIN REACH. WILL CONTINUE TO MONITOR. Addendum: 05/19/20 at 1850 by IBETH JAMES RN CORRECTION; PT'S IV ACCESS ON RAC IS G#20 NOT 29. WILL ENDORSE TO ELECTROTYPE FINISHER NURSE FOR SOM.
--- NOTE | 2020-05-19 19:30 | NUR ---
MS/RN NOTES RECEIVED PATIENT IN BED RESTING. PATIENT IS ALERT AND ORIENTED X 4. PATIENTS BREATHING IS EVEN AND UNLABORED. NO SIGNS OF SOB OR RESPIRATORY DISTRESS NOTED. PATIENT STATES NO PAIN AT THIS TIME. IV ACCESS INTACT FLUSHING WELL. SAFETY MEASURES ARE IN PLACE BED IS LOCKED AND PLACED IN THE LOW POSITION, CALL LIGHT IS WITHIN REACH, SIDE RAILS UP X 2. WILL CONTINUE TO MONITOR THROUGH OUT SHIFT.
--- NOTE | 2020-05-19 19:50 | NUR ---
MS/RN NOTES PATIENT COMPLAINING OF PAIN. PATIENT GIVEN DILAUDID IV 2MG. PATIENT V/S ARE WITHIN NORMAL LIMITS. WILL CONTINUE TO MONITOR.
[2020-05-19 20:00] VITALS: BP 150/84
[2020-05-20] MEDS: HYDROMORPHONE INJ 2 MG/ML DISP.SYRIN IV PRN ×6 (00:04→23:19)
[2020-05-20] MEDS: IV NS 0.9% 1,000 ML IV PRN (05:17)
--- NOTE | 2020-05-20 06:45 | NUR ---
MS/RN CLOSING NOTES PATIENT IN BED RESTING. PATIENT IS ALERT AND ORIENTED X 4. PATIENTS BREATHING IS EVEN AND UNLABORED. NO SIGNS OF SOB OR RESPIRATORY DISTRESS NOTED. IV ACCESS INTACT FLUSHING WELL. PATIENT HAS BEEN NPO S/P MIDNIGHT. SAFETY MEASURES ARE IN PLACE BED IS LOCKED AND PLACED IN THE LOW POSITION, CALL LIGHT IS WITHIN REACH, SIDE RAILS UP X 2. WILL ENDORSE CARE TO DAY SHIFT NURSE.
[2020-05-20 06:57] LABS: BASOPHILS # (AUTO) 0.1 /CMM (0.0-0.2); BASOPHILS % (AUTO) 0.5 % (0.0-2.0); EOSINOPHILS % (AUTO) 4.9 % (0.0-6.0); HEMATOCRIT 26 % (39-51); HEMOGLOBIN 8.3 g/dL (13.5-17.5); LYMPHOCYTES # (AUTO) 1.8 /CMM (0.8-4.8); LYMPHOCYTES % (AUTO) 18.7 % (20.0-44.0); MEAN CORPUSCULAR HGB CONC 32 g/dl (31.0-36.0); MEAN CORPUSCULAR VOLUME 73 fL (80-96); MONOCYTES # (AUTO) 0.5 /CMM (0.1-1.30); MONOCYTES % (AUTO) 5.3 % (2.0-12.0); NEUTROPHILS # (AUTO) 6.9 /CMM (1.8-8.9); NEUTROPHILS % (AUTO) 70.6 % (43.0-81.0); PLATELET COUNT (AUTO) 464 /CMM (150-450); RED BLOOD CELL COUNT(AUTO) 3.54 MIL/uL (4.5-6.0); WHITE BLOOD COUNT (AUTO) 9.8 K/uL (4.3-11.0)
[2020-05-20 07:18] LABS: CALCIUM, SERUM 8.5 mg/dL (8.5-10.1); CREATININE 2.5 mg/dL (0.6-1.3); MAGNESIUM 1.5 mg/dL (1.8-2.4); PHOSPHORUS 3.7 mg/dL (2.5-4.9); POTASSIUM 3.6 mmol/L (3.5-5.1)
--- NOTE | 2020-05-20 07:25 | NUR ---
RN OPENING NOTES PATIENT RECEIVED IN BED RESTING. PATIENT IS ALERT AND ORIENTED X 4. PATIENT'S BREATHING IS EVEN AND UNLABORED. NO SIGNS OF SOB OR RESPIRATORY DISTRESS NOTED. IV ACCESS INTACT FLUSHING WELL. PATIENT HAS BEEN NPO S/P MIDNIGHT. ORAL MEDS HELD TO NPO STATUS FOR CT SCAN. SAFETY MEASURES IMPLEMENTED, BED IS LOCKED AND IN LOWEST POSITION, CALL LIGHT IS WITHIN REACH, SIDE RAILS UP X 2. WILL CONTINUE TO MONITOR AND PROVIDE CARE THROUGHOUT SHIFT.
[2020-05-20] MEDS: PANTOPRAZOLE 40 MG TABLET.DR PO SCH (07:30)
[2020-05-20 08:36] VITALS: BP 144/90
[2020-05-20] MEDS: DOXYCYCLINE HYCLATE (100 MG) 100 MG TABLET PO SCH ×2 (09:00→20:26)
[2020-05-20] MEDS: LEVOFLOXACIN (250MG) 250 MG TABLET PO SCH (09:00)
[2020-05-20] MEDS: POLYETHYLENE GLYCOL 3350 17 GM POWD.PACK PO SCH ×3 (09:00→17:11)
[2020-05-20] MEDS: LORATADINE 10 MG TABLET PO SCH (09:00)
[2020-05-20] MEDS: THERAHONEY GEL 1.5 OZ TUBE TP SCH ×2 (09:13)
[2020-05-20] MEDS: AMMONIUM LACTATE 227 GM BOTTLE TP SCH ×2 (09:14→17:11)
[2020-05-20] MEDS: MUPIROCIN OINT 2% 22 GM TUBE NS SCH ×2 (09:15→20:52)
[2020-05-20] MEDS ORDERED: Magnesium 1GM/D5W 100ML PREMIX 100 ML IV SCH (11:00)
[2020-05-20] MEDS: SOD FERRIC GLUC 125 MG in IV NS 0.9% 100 ML IV SCH (13:48)
--- NOTE | 2020-05-20 14:21 | NUR ---
Spoke to Radiologist, he stated he spoke to Amy Majano. Placed on hold til further notice
[2020-05-20 16:02] VITALS: BP 143/87
--- NOTE | 2020-05-20 19:03 | NUR ---
RN CLOSING NOTES PATIENT IN BED RESTING. PATIENT IS ALERT AND ORIENTED X 4. PATIENT'S BREATHING IS EVEN AND UNLABORED. NO SIGNS OF SOB OR RESPIRATORY DISTRESS NOTED. IV ACCESS INTACT FLUSHING WELL. PATIENT HAS BEEN NPO S/P MIDNIGHT. ORAL MEDS HELD TO NPO STATUS FOR CT SCAN. NEPHROSTOMY ON HOLD BECAUSE OF TOO MANY STONES. PATIENT PLACED BACK ON REGULAR DIET. SAFETY MEASURES IMPLEMENTED, BED IS LOCKED AND IN LOWEST POSITION, CALL LIGHT IS WITHIN REACH, SIDE RAILS UP X 2. WILL ENDORSE CARE TO UPCOMING SHIFT.
--- NOTE | 2020-05-20 19:28 | NUR ---
RN OPENING NOTES PATIENT RECEIVED IN BED RESTING. PATIENT IS ALERT AND ORIENTED X 4. CALM, COOPERATIVE. PT ON ROOM AIR. PATIENT'S BREATHING IS EVEN AND UNLABORED. NO SIGNS OF SOB OR RESPIRATORY DISTRESS NOTED. NO C/O OF PAIN, NO DISTRESS NOTED AT THIS TIME. IV ACCESS RAC #20, CLAUDIA #18 IS INTACT AND FLUSHING WELL. NO OCCLUSIONS, NO INFILTRATION NOTED AT THIS TIME. SAFETY MEASURES IMPLEMENTED, BED IS LOCKED AND IN LOWEST POSITION, CALL LIGHT IS WITHIN REACH, SIDE RAILS UP X 2. WILL CONTINUE TO MONITOR AND PROVIDE CARE THROUGHOUT SHIFT.
[2020-05-20 20:00] VITALS: BP 129/85
[2020-05-21] MEDS: HYDROMORPHONE INJ 2 MG/ML DISP.SYRIN IV PRN ×5 (03:23→20:21)
--- NOTE | 2020-05-21 07:46 | NUR ---
RN CLOSING NOTES PATIENT LAYING IN BED. PATIENT IS ALERT AND ORIENTED X 4. CALM, COOPERATIVE. PT ON ROOM AIR. PATIENT'S BREATHING IS EVEN AND UNLABORED. NO SIGNS OF SOB OR RESPIRATORY DISTRESS NOTED. NO C/O OF PAIN, NO DISTRESS NOTED AT THIS TIME. IV ACCESS RAC #20, CLAUDIA #18 IS INTACT AND FLUSHING WELL. NO OCCLUSIONS, NO INFILTRATION NOTED AT THIS TIME. SAFETY MEASURES IMPLEMENTED, BED IS LOCKED AND IN LOWEST POSITION, CALL LIGHT IS WITHIN REACH, SIDE RAILS UP X 2. WILL CONTINUE TO MONITOR AND PROVIDE CARE THROUGHOUT SHIFT. WILL ENDORSE TO UPCOMING SHIFT.
[2020-05-21 08:00] VITALS: BP 130/81
[2020-05-21] MEDS: PANTOPRAZOLE 40 MG TABLET.DR PO SCH (08:19)
[2020-05-21] MEDS: LORATADINE 10 MG TABLET PO SCH (08:19)
[2020-05-21] MEDS: DOXYCYCLINE HYCLATE (100 MG) 100 MG TABLET PO SCH ×2 (08:19→20:20)
[2020-05-21] MEDS: POLYETHYLENE GLYCOL 3350 17 GM POWD.PACK PO SCH ×2 (08:21→18:19)
[2020-05-21] MEDS: IV NS 0.9% 1,000 ML IV PRN (08:22)
[2020-05-21] MEDS: MUPIROCIN OINT 2% 22 GM TUBE NS SCH ×2 (08:26→20:25)
[2020-05-21] MEDS: AMMONIUM LACTATE 227 GM BOTTLE TP SCH ×2 (08:27→18:19)
[2020-05-21 08:41] LABS: CALCIUM, SERUM 8.8 mg/dL (8.5-10.1); CREATININE 2.7 mg/dL (0.6-1.3); MAGNESIUM 1.4 mg/dL (1.8-2.4); POTASSIUM 3.7 mmol/L (3.5-5.1)
--- NOTE | 2020-05-21 09:15 | NUR ---
m/s oil spraying machine operator: notes report given to jemma (rn) for continuity of care.
--- NOTE | 2020-05-21 09:20 | NUR ---
MS RN OPENING NOTE RECEIVED PATIENT IS IN BED RESTING. PATIENT IS IN NO ACUTE DISTRESS. PATIENT IS ROOM AIR. NO SOB NOTED. SAFETY PRECAUTIONS ARE IN PLACE. BED IN THE LOWEST POSITION, SIDE RAILS ARE UP. CALL LIGHT WITHIN REACH. WILL CONTINUE TO MONITOR CLOSELY.
[2020-05-21] MEDS: THERAHONEY GEL 1.5 OZ TUBE TP SCH ×2 (10:01→11:50)
[2020-05-21] MEDS: Magnesium 1GM/D5W 100ML PREMIX 100 ML IV SCH ×2 (11:14→12:30)
[2020-05-21] MEDS: SOD FERRIC GLUC 125 MG in IV NS 0.9% 100 ML IV SCH (14:19)
[2020-05-21 16:00] VITALS: BP 141/74
--- NOTE | 2020-05-21 19:35 | NUR ---
MS RN CLOSING NOTE PATIENT IS IN BED RESTING. PATIENT IS IN NO ACUTE DISTRESS. PATIENT IS ON ROOM AIR TOLERATING WELL. SAFETY PRECAUTIONS ARE IN PLACE. BED IN THE LOWEST POSITION, SIDE RAILS ARE UP. CALL LIGHT WITHIN REACH. ENDORSE PATIENT TO THE WREATH AND GARLAND MAKER HAND NURSE FOR SOM.
--- NOTE | 2020-05-21 19:46 | NUR ---
MS RN OPENING NOTES: RECEIVED PATIENT IN BED RESTING COMFORTABLY. ALERT AND ORIENTED X4, NO S/SX OF ACUTE RESPIRATORY DISTRESS NOTED. DENIES PAIN OR DISCOMFORT AT THIS TIME. IV ACCESS ON RAC #20 CLAUDIA MIDLINE PATENT AND INTACT. IV FLUIDS NS @100ML/HR INFUSING WELL. TURNED AND REPOSITIONED Q2 HRS AND PRN FOR WOUND MANAGEMENT. ON SUPRAPUBIC CATHETER, DRAINING WELL. SAFETY PRECAUTIONS IN PLACE. BED IN LOWEST POSITION, BRAKES LOCKED, SIDE RAILS UP X2. CALL LIGHT WITHIN REACH. WILL CONTINUE TO MONITOR.
[2020-05-21 20:00] VITALS: BP 128/73
[2020-05-22] MEDS: HYDROMORPHONE INJ 2 MG/ML DISP.SYRIN IV PRN ×5 (00:38→20:07)
[2020-05-22] MEDS: IV NS 0.9% 1,000 ML IV PRN (01:47)
--- NOTE | 2020-05-22 06:18 | NUR ---
MS RN CLOSING NOTES: PATIENT IN BED ASLEEP. EASILY AROUSABLE. ALERT AND ORIENTED X4, NO S/SX OF ACUTE RESPIRATORY DISTRESS NOTED. PT C/O GENERALIZED PAIN, MEDICATED WITH DILAUDID 2MG IV PRN. IV ACCESS ON RAC #20 CLAUDIA MIDLINE PATENT AND INTACT. IV FLUIDS NS @100ML/HR INFUSING WELL. TURNED AND REPOSITIONED Q2 HRS AND PRN FOR WOUND MANAGEMENT. ON SUPRAPUBIC CATHETER, DRAINING WELL. SAFETY PRECAUTIONS IN PLACE. BED IN LOWEST POSITION, BRAKES LOCKED, SIDE RAILS UP X2. CALL LIGHT WITHIN REACH. WILL ENDORSE TO DAY SHIFT NURSE FOR CONTINUITY OF CARE.
--- NOTE | 2020-05-22 07:08 | NUR ---
RN OPENING NOTE RECEIVED PT AWAKE IN BED AT THIS TIME. AOX4. PT ABLE TO MAKE NEEDS KNOWN. NO SOB NOTED, NO S/S OF ANY ACUTE DISTRESS NOTED, NO C/O PAIN AT THIS TIME. PT STABLE ON RA SATURATING @ 99%. PLASENCIA CATHETER IN PLACE, DRAINING TO GRAVITY CLEAR YELLOW URINE OUTPUT.CLAUDIA MIDLINE IN PLACE, INTACT PATENT AND FLUSHING WELL. ASPIRATIONS AND SAFETY PRECAUTIONS IN PLACE AND MAINTAINED AT ALL TIMES. BED IN LOWEST LOCKED POSITION, SIDE RAILS UP, HOB ELEVATED, TABLE AND CALL LIGHT WITHIN REACH. WILL CONTINUE TO MONITOR.
[2020-05-22 07:57] LABS: CALCIUM, SERUM 8.9 mg/dL (8.5-10.1); CREATININE 2.5 mg/dL (0.6-1.3); POTASSIUM 4.1 mmol/L (3.5-5.1)
[2020-05-22 08:00] VITALS: BP 144/84
[2020-05-22] MEDS: POLYETHYLENE GLYCOL 3350 17 GM POWD.PACK PO SCH ×2 (09:00→16:17)
--- NOTE | 2020-05-22 09:03 | NUR ---
RN CLOSING NOTES PT AWAKE IN BED AT THIS TIME. PT REMAINED STABLE THROUGHOUT SHIFT. PT REMAINED STABLE ON RA SATURATING @ 96% AT THIS TIME. ALL CARE, NEED, MEDICATIONS AND TREATMENT ADMINISTERED ANTICIPATED PER ORDER. WOUND TREATMENT AND PAIN MANAGEMENT ADMINISTERED PER ORDER. LINEN KEPT CLEAN. ASPIRATION, RESPIRATION AND SAFETY PRECAUTION IN PLACE AND MAINTAINED AT ALL TIMES. BED IN LOWEST LOCKED POSITION, HOB ELEVATED, SIDE RAILS UP X 2, CALL LIGHT AND TABLE WITHIN REACH. WILL ENDORSE TO LOCKSTITCH LINING SETTER NURSE FOR SOM
[2020-05-22] MEDS: LORATADINE 10 MG TABLET PO SCH (09:44)
[2020-05-22] MEDS: LEVOFLOXACIN (250MG) 250 MG TABLET PO SCH (09:44)
[2020-05-22] MEDS: PANTOPRAZOLE 40 MG TABLET.DR PO SCH (09:44)
[2020-05-22] MEDS: DOXYCYCLINE HYCLATE (100 MG) 100 MG TABLET PO SCH (09:45)
[2020-05-22] MEDS: THERAHONEY GEL 1.5 OZ TUBE TP SCH ×2 (09:46→09:47)
[2020-05-22] MEDS: MUPIROCIN OINT 2% 22 GM TUBE NS SCH ×2 (09:46→20:06)
[2020-05-22] MEDS: AMMONIUM LACTATE 227 GM BOTTLE TP SCH ×2 (09:58→16:13)
--- NOTE | 2020-05-22 10:35 | NUR ---
PT C/O OF ACHING BACK PAIN OF 9/10. PT NOTED GUARDING AND RESTLESS. PER PT REQUEST, DILAUDID 2MG IV Q4HR PRN ADMINISTERED AT THIS TIME PER ORDER. WILL CONTINUE TO MONITOR
[2020-05-22] MEDS: SOD FERRIC GLUC 125 MG in IV NS 0.9% 100 ML IV SCH (14:06)
[2020-05-22 16:00] VITALS: BP 140/66
--- NOTE | 2020-05-22 16:17 | NUR ---
PT C/O OF ACHING BACK PAIN OF 9/10. PT NOTED GUARDING, IRRITABLE AND RESTLESS. VS WNL. PER PT REQUEST, DILAUDID 2MG IV Q4HR PRN ADMINISTERED AT THIS TIME PER ORDER. WILL CONTINUE TO MONITOR
--- NOTE | 2020-05-22 19:30 | NUR ---
MS/RN OPENING NOTES RECEIVED PATIENT IN BED RESTING. PATIENT IS ALERT AND ORIENTED X 4. PATIENTS BREATHING IS EVEN AND UNLABORED. NO SIGNS OF SOB OR RESPIRATORY DISTRESS NOTED. IV ACCESS INTACT FLUSHING WELL. SAFETY MEASURES ARE IN PLACE BED IS LOCKED AND PLACED IN THE LOW POSITION, CALL LIGHT IS WITHIN REACH, SIDE RAILS UP X 2. WILL CONTINUE TO MONITOR.
[2020-05-22 20:00] VITALS: BP 158/83
[2020-05-23] MEDS: HYDROMORPHONE INJ 2 MG/ML DISP.SYRIN IV PRN ×6 (00:13→20:31)
--- NOTE | 2020-05-23 04:15 | NUR ---
MS/RN NOTES PATIENT REQUESTING PAIN MED Q4H. DILAUDID 2 MG IVP GIVEN. PATIENT IN STABLE CONDITION. WILL CONTINUE TO MONITOR.
--- NOTE | 2020-05-23 06:25 | NUR ---
MS/RN CLOSING NOTES PATIENT IN BED RESTING. PATIENT IS ALERT AND ORIENTED X 4. PATIENTS BREATHING IS EVEN AND UNLABORED. NO SIGNS OF SOB OR RESPIRATORY DISTRESS NOTED. IV ACCESS INTACT FLUSHING WELL. ALL NEEDS MET. SAFETY MEASURES ARE IN PLACE BED IS LOCKED AND PLACED IN THE LOW POSITION, CALL LIGHT IS WITHIN REACH, SIDE RAILS UP X 2. WILL ENDORSE CARE TO DAY SHIFT NURSE.
[2020-05-23 07:09] LABS: BASOPHILS # (AUTO) 0.1 /CMM (0.0-0.2); BASOPHILS % (AUTO) 0.5 % (0.0-2.0); EOSINOPHILS % (AUTO) 3.6 % (0.0-6.0); HEMATOCRIT 28 % (39-51); HEMOGLOBIN 8.8 g/dL (13.5-17.5); LYMPHOCYTES % (AUTO) 16.7 % (20.0-44.0); MEAN CORPUSCULAR HGB CONC 31 g/dl (31.0-36.0); MEAN CORPUSCULAR VOLUME 74 fL (80-96); MONOCYTES # (AUTO) 0.8 /CMM (0.1-1.30); MONOCYTES % (AUTO) 6.4 % (2.0-12.0); NEUTROPHILS # (AUTO) 8.6 /CMM (1.8-8.9); NEUTROPHILS % (AUTO) 72.8 % (43.0-81.0); PLATELET COUNT (AUTO) 478 /CMM (150-450); RED BLOOD CELL COUNT(AUTO) 3.81 MIL/uL (4.5-6.0); WHITE BLOOD COUNT (AUTO) 11.8 K/uL (4.3-11.0)
--- NOTE | 2020-05-23 07:19 | NUR ---
MS RN OPENING NOTES RECEIVED PATIENT IN BED AWAKE, A/X4. ABLE TO MAKE NEEDS KNOWN, NO C/O PAIN OR DISCOMFORTS AT THIS TIME. ON ROOM AIR, BREATHING EVEN AND UNLABORED. CLAUDIA MIDLINE INTACT, PATENT AND FLUSHES WELL. SUPRAPUBIC CATHETER IN PLACE DRAINING SLIGHTLY CLOUDY URINE BY GRAVITY. SAFETY MEASURES IN PLACE: BED IS LOW AND LOCKED, SIDE RAILS UP X2, BED ALARM ON AND CALL LIGHT WITHIN REACH. WILL CONTINUE TO MONITOR.
[2020-05-23 08:00] VITALS: BP 132/77
[2020-05-23 08:06] LABS: CALCIUM, SERUM 8.6 mg/dL (8.5-10.1); CREATININE 2.4 mg/dL (0.6-1.3); MAGNESIUM 1.7 mg/dL (1.8-2.4); PHOSPHORUS 3.5 mg/dL (2.5-4.9); POTASSIUM 3.6 mmol/L (3.5-5.1)
[2020-05-23] MEDS: PANTOPRAZOLE 40 MG TABLET.DR PO SCH (08:19)
[2020-05-23] MEDS: LORATADINE 10 MG TABLET PO SCH (08:19)
[2020-05-23] MEDS: MUPIROCIN OINT 2% 22 GM TUBE NS SCH ×2 (08:24→20:33)
[2020-05-23] MEDS: THERAHONEY GEL 1.5 OZ TUBE TP SCH ×2 (08:33→09:20)
[2020-05-23] MEDS: POLYETHYLENE GLYCOL 3350 17 GM POWD.PACK PO SCH ×2 (08:35→16:37)
[2020-05-23] MEDS: AMMONIUM LACTATE 227 GM BOTTLE TP SCH ×2 (09:20→16:38)
[2020-05-23] MEDS ORDERED: Magnesium 1GM/D5W 100ML PREMIX 100 ML IV SCH (10:30)
--- NOTE | 2020-05-23 12:45 | NUR ---
RN NOTES PT NOTED WITH LOW MAGNESIUM 1.7 TODAY. ADMINISTERED MAGNESIUM 1gm/100 D5w IVPB. WILL CONTINUE TO MONITOR.
[2020-05-23 16:00] VITALS: BP 124/85
--- NOTE | 2020-05-23 18:35 | NUR ---
MS RN CLOSING NOTES PATIENT IN BED AWAKE AND WATCHING MOVIE ON HIS IPAD AT THIS TIME. A/O X4. ABLE TO MAKE NEEDS KNOWN. ON ROOM AIR, TOLERATING WELL, BREATHING EVEN AND UNLABORED. CLAUDIA MIDLINE INTACT, PATENT AND FLUSHES WELL. SUPRAPUBIC CATHETER IN PLACE DRAINING SLIGHTLY CLOUDY URINE BY GRAVITY, PLASENCIA CARE DONE. ALL NEEDS AND CARE ATTENDED WELL. SAFETY MEASURES IN PLACE: BED IS LOW AND LOCKED, SIDE RAILS UP X2, BED ALARM ON AND CALL LIGHT WITHIN REACH. WILL ENDORSE SOM TO NIGHT NURSE.
--- NOTE | 2020-05-23 19:30 | NUR ---
MS RN OPENING NOTES PATIENT A/OX4; ABLE TO MAKE NEEDS KNOWN. ON ROOM AIR; TOLERATING WELL WITH NO SOB. C/O ON AND OFF PAIN ON HIS BACK AND LEFT LEG; WILL ADMINISTER DILAUDID ORDERED. SUPRAPUBIC CATHETER PATENT AND INTACT; DRAINING CLOUDY YELLOW URINE WITH SEDIMENT. CLAUDIA MIDLINE #18G S/L; PATENT AND INTACT. SAFETY MEASURES IN PLACE; BED IN LOWEST LOCKED POSITION, SIDE RAILS UP X3, CALL LIGHT WITHIN EASY REACH. WILL CONTINUE PLAN OF CARE.
[2020-05-23 20:00] VITALS: BP 146/87
[2020-05-24] MEDS: HYDROMORPHONE INJ 2 MG/ML DISP.SYRIN IV PRN ×5 (00:31→16:36)
--- NOTE | 2020-05-24 07:57 | NUR ---
MS RN CLOSING NOTES PATIENT A/OX4; ABLE TO MAKE NEEDS KNOWN. ON ROOM AIR; TOLERATING WELL WITH NO SOB. SUPRAPUBIC CATHETER PATENT AND INTACT; DRAINING CLOUDY YELLOW URINE WITH SEDIMENT. CLAUDIA MIDLINE #18G S/L; PATENT AND INTACT. SAFETY MEASURES IN PLACE; BED IN LOWEST LOCKED POSITION, SIDE RAILS UP X3, CALL LIGHT WITHIN EASY REACH. ENDORSED PLAN OF CARE TO ONCOMING MORNING RN.
[2020-05-24 07:58] VITALS: BP 131/79
[2020-05-24 08:14] LABS: CALCIUM, SERUM 8.7 mg/dL (8.5-10.1); CREATININE 2.3 mg/dL (0.6-1.3); MAGNESIUM 1.7 mg/dL (1.8-2.4); POTASSIUM 3.5 mmol/L (3.5-5.1)
[2020-05-24] MEDS: LEVOFLOXACIN (250MG) 250 MG TABLET PO SCH (08:51)
[2020-05-24] MEDS: PANTOPRAZOLE 40 MG TABLET.DR PO SCH (08:51)
[2020-05-24] MEDS: LORATADINE 10 MG TABLET PO SCH (08:51)
[2020-05-24] MEDS: POLYETHYLENE GLYCOL 3350 17 GM POWD.PACK PO SCH ×2 (08:52→16:37)
[2020-05-24] MEDS: MUPIROCIN OINT 2% 22 GM TUBE NS SCH (08:58)
[2020-05-24] MEDS: THERAHONEY GEL 1.5 OZ TUBE TP SCH ×2 (08:59)
--- NOTE | 2020-05-24 09:09 | NUR ---
MS RN NOTE PT STATED PAIN 11/16. PT GIVEN PRN DILAUDID 2MG IV PUSH
[2020-05-24] MEDS: AMMONIUM LACTATE 227 GM BOTTLE TP SCH ×2 (09:16→16:31)
--- NOTE | 2020-05-24 09:18 | NUR ---
MS RN NOTE PT STATED PAIN IS 2/10.
[2020-05-24] MEDS ORDERED: Magnesium 1GM/D5W 100ML PREMIX 100 ML IV SCH (10:30)
--- NOTE | 2020-05-24 18:06 | NUR ---
MS RN CLOSING NOTES PATIENT A/OX4; ABLE TO MAKE NEEDS KNOWN. PT TRANSFERRING TO [facility] FOR UROLOGY PROCEDURE. REPORT GIVEN TO RANDY @ 1600. PT REFUSED PICTURES TO BE TAKEN PRIOR TO DISCHARGE. PAIN LEVEL AT 2/10. NO PRN NEEDED AT THIS TIME. PT WAS COMPLAINING OF PAIN WITH MIDLINE SO IV PLACED IN RIGHT HAND #20G. SAFETY MEASURES IN PLACE; BED IN LOWEST LOCKED POSITION, SIDE RAILS UP X3, CALL LIGHT WITHIN EASY REACH. WILL ENDORSE TO NEXT SHIFT.
== END 2020-05-24 19:20 | disposition short-term general hospital (02) | DRG 853 ==
LOC: MED 09:45
PROVIDERS: ADMIT Nurse Practitioner Acute Care; ATTEND Nurse Practitioner Acute Care
PROC: 0JBR0ZZ Excision of Left Foot Subcutaneous Tissue and Fascia, Open Approach (ICD-10-PCS; principal; 2020-05-14)
PROC: 0JBP0ZZ Excision of Left Lower Leg Subcutaneous Tissue and Fascia, Open Approach (ICD-10-PCS; 2020-05-14)
PROC: 05H533Z Insertion of Infusion Device into Right Subclavian Vein, Percutaneous Approach (ICD-10-PCS; 2020-05-14)
PROC: B546ZZA Ultrasonography of Right Subclavian Vein, Guidance (ICD-10-PCS; 2020-05-14)
PROC: 05H633Z Insertion of Infusion Device into Left Subclavian Vein, Percutaneous Approach (ICD-10-PCS; 2020-05-16)
PROC: B547ZZA Ultrasonography of Left Subclavian Vein, Guidance (ICD-10-PCS; 2020-05-16)
PROC: 0KBP0ZZ Excision of Left Hip Muscle, Open Approach (ICD-10-PCS; 2020-05-18)
DX: A41.9 Sepsis, unspecified organism (principal); L89.324 Pressure ulcer of left buttock, stage 4; N17.0 Acute kidney failure with tubular necrosis; L89.623 Pressure ulcer of left heel, stage 3; J18.9 Pneumonia, unspecified organism; L89.154 Pressure ulcer of sacral region, stage 4; N39.0 Urinary tract infection, site not specified; G82.20 Paraplegia, unspecified; E87.1 Hypo-osmolality and hyponatremia; N13.6 Pyonephrosis; E86.1 Hypovolemia; D50.9 Iron deficiency anemia, unspecified; I10 Essential (primary) hypertension; N31.9 Neuromuscular dysfunction of bladder, unspecified; D63.8 Anemia in other chronic diseases classified elsewhere; G89.4 Chronic pain syndrome; K76.0 Fatty (change of) liver, not elsewhere classified; Z87.440 Personal history of urinary (tract) infections; Z93.59 Other cystostomy status; V89.2XXS Person injured in unspecified motor-vehicle accident, traffic, sequela; L85.3 Xerosis cutis; S80.811A Abrasion, right lower leg, initial encounter; X58.XXXA Exposure to other specified factors, initial encounter; Y93.9 Activity, unspecified; Y92.009 Unspecified place in unspecified non-institutional (private) residence as the place of occurrence of the external cause; S81.812A Laceration without foreign body, left lower leg, initial encounter; L89.526 Pressure-induced deep tissue damage of left ankle; S90.415A Abrasion, left lesser toe(s), initial encounter; R59.0 Localized enlarged lymph nodes; B96.4 Proteus (mirabilis) (morganii) as the cause of diseases classified elsewhere; R21 Rash and other nonspecific skin eruption; Z87.442 Personal history of urinary calculi; Z22.322 Carrier or suspected carrier of Methicillin resistant Staphylococcus aureus; Z88.0 Allergy status to penicillin; D47.3 Essential (hemorrhagic) thrombocythemia; M24.574 Contracture, right foot; M24.575 Contracture, left foot; R16.1 Splenomegaly, not elsewhere classified; Z95.828 Presence of other vascular implants and grafts; Z86.718 Personal history of other venous thrombosis and embolism; Z20.822 Contact with and (suspected) exposure to COVID-19; E86.0 Dehydration; Z87.891 Personal history of nicotine dependence; E78.5 Hyperlipidemia, unspecified
CPT/HCPCS: 36415; 71250-TC; 74018; 76770-TC; 80048-TC; 80053-TC; 80170-TC; 81001; 82105; 82378; 82550-TC; 82728-TC; 83540-TC; 83615-TC; 83735-TC; 83970; 84100-TC; 84134-TC; 84153-TC; 84154-TC; 84155; 84165; 84443-TC; 84550-TC; 84702-TC; 85025-TC; 85730-TC; 87081-TC; 87086-TC; 87186-TC; A4216; A6253; A6403; G0378; J0692; J1170; J1580; J1956; J2916; J3475; J3490; J7030; J7060; U0003

== ENCOUNTER 2020-09-17 16:53 | Inpatient (IN) | payer MEDICARE ==
[~2020-09-17] VITALS: Ht 185.4 cm; Wt 98.0 kg
[~2020-09-17 16:53] MED LIST changes: -CEFD300C3 PO; -CLOT15CR35 TP; -COLL30OI TP; -Hydrogel Dressing TP; -NICO-676 TD; -POLY17PO4 PO; -Prosource GT; -TOBR300A5 IH
--- NOTE | 2020-09-17 17:15 | NUR ---
BIBS FROM HOME TO ER BED 7. AAOX4. NOT IN RESP DISTRESS. AMBULATES WITH AN ELECTRIC WHEELCHAIR. REFERRED BY DR. GREGORIO YANG TO COME IN FOR WOUND CELLULITIS. 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 UPON INSPECTING. WOUND IS NOTED STAGE 4, DRAINING W/ PERIWOUND REDNESS. PT IS ALREADY ON [facility] AT[facility] BUT HE REPORTS THAT ITS GETTING WORSE. MD LAWRENCE AT THE BEDSIDE FOR EVAL. ORDERS RECEIVED, NOTED AND CARRIED OUT.
--- NOTE | 2020-09-17 17:15 | NUR ---
BIBS FROM HOME TO ER BED 7. AAOX4. NOT IN RESP DISTRESS. AMBULATES WITH AN ELECTRIC WHEELCHAIR. REFERRED BY DR. GREGORIO YANG TO COME IN FOR WOUND CELLULITIS. PER REPORTS THAT HE HAVE A PRESSURE ULCER ON HIS R HIP A SCARL AREA THAT HAS BEEN GETTING WORSE IN THE PAST 2 WEEKS. UPON INSPECTING. WOUND IS NOTED STAGE 4, DRAINING W/ PERIWOUND REDNESS. PT IS ALREADY ON [facility] ATB BUT HE REPORTS THAT ITS GETTING WORSE. MD LAWRENCE AT THE BEDSIDE FOR EVAL. ORDERS RECEIVED, NOTED AND CARRIED OUT.
[2020-09-17] MEDS ORDERED: VANCOMYCIN 1 GM in IV D5W 250 ML IV ONE (17:30)
[2020-09-17] MEDS ORDERED: AZTREONAM 1 G in IV NS 0.9% 100 ML IV ONE (17:30)
[2020-09-17 17:36] LABS: BASOPHILS # (AUTO) 0.1 /CMM (0.0-0.2); BASOPHILS % (AUTO) 1.1 % (0.0-2.0); EOSINOPHILS % (AUTO) 4.1 % (0.0-6.0); HEMATOCRIT 34 % (39-51); HEMOGLOBIN 10.6 g/dL (13.5-17.5); LYMPHOCYTES # (AUTO) 2.1 /CMM (0.8-4.8); LYMPHOCYTES % (AUTO) 16.8 % (20.0-44.0); MEAN CORPUSCULAR HGB CONC 32 g/dl (31.0-36.0); MEAN CORPUSCULAR VOLUME 84 fL (80-96); MONOCYTES # (AUTO) 0.8 /CMM (0.1-1.30); NEUTROPHILS # (AUTO) 9.1 /CMM (1.8-8.9); PLATELET COUNT (AUTO) 484 /CMM (150-450); RED BLOOD CELL COUNT(AUTO) 4.01 MIL/uL (4.5-6.0); WHITE BLOOD COUNT (AUTO) 12.6 K/uL (4.3-11.0)
[2020-09-17 17:54] LABS: ALANINE AMINOTRANSFERASE 15 U/L (12-78); ALBUMIN 2.7 g/dL (3.4-5.0); ALKALINE PHOSPHATASE 103 U/L (46-116); ASPARTATE AMINOTRANSFERASE 14 U/L (15-37); BILIRUBIN,DIRECT 0.1 mg/dL (0.0-0.2); BILIRUBIN,TOTAL 0.2 mg/dL (0.2-1.0); CALCIUM, SERUM 9.1 mg/dL (8.5-10.1); CARBON DIOXIDE 22 mmol/L (21-32); CHLORIDE 100 mmol/L (98-107); CREATININE 2.5 mg/dL (0.6-1.3); GLUCOSE 114 mg/dL (74-106); POTASSIUM 4.7 mmol/L (3.5-5.1); SODIUM SERUM 132 mmol/L (136-145); TOTAL PROTEIN, SERUM 9.7 g/dL (6.4-8.2); UREA NITROGEN, BLOOD 40 mg/dL (7-18)
--- NOTE | 2020-09-17 18:35 | NUR ---
WOUND CULTURE SPECIMEN COLLECTED AND SEN TO LAB
[2020-09-17] MEDS ORDERED: IV NS 0.9% 1,000 ML BAG IV ONE (19:00)
--- NOTE | 2020-09-17 19:07 | NUR ---
[facility] CALLED OPHTHALMIC LENS INSPECTOR PAGED.
[2020-09-17 19:16] LABS: BILIRUBIN,URINE Negative (NEGATIVE); COLOR,URINE YELLOW (YELLOW); LEUKOCYTE ESTERASE ,URINE Small (NEGATIVE); NITRITE, URINE Negative (NEGATIVE); PROTEIN,URINE 100 mg/dl (NEGATIVE); UGLUCOSE Negative (NEGATIVE); UROBILINOGEN,URINE 0.2 EU/dL (0.2)
[2020-09-17 19:30] LABS: BACTERIA,URINE Rare /HPF (None Seen); RBC,URINE 21-50 /HPF (0-2); WBC,URINE 21-50 /HPF (0-3)
[2020-09-17 19:31] LABS: SQUAMOUS EPITHELIAL CELL,UR 0-2 /HPF (None Seen)
[2020-09-17] MEDS ORDERED: HYDROMORPHONE 1 MG/1 ML DISP.SYRIN ONE (19:55)
--- NOTE | 2020-09-17 19:56 | NUR ---
[facility] [id number]
[2020-09-17] MEDS ORDERED: HYDROMORPHONE 1 MG/1 ML DISP.SYRIN IV ONE (20:00)
--- NOTE | 2020-09-17 20:02 | NUR ---
report given to SANDRA Echavarria for logan
--- NOTE | 2020-09-17 20:32 | NUR ---
PT IS BEING TRANSPORTED TO UNIT ON [facility] WITH 2 EMT ON STABLE CONDITION.
[2020-09-17 20:40] VITALS: BP 135/87
--- NOTE | 2020-09-17 21:00 | NUR ---
MS/RN OPENING NOTES PATIENT ARRIVED ON UNIT, NO INJURIES SUSTAINED DURING TRANSPORT. PATIENT TRANSFERRED TO BED SAFELY. PATIENT IS ALERT AND ORIENTED X 4. PATIENT SHOWS NO SIGNS OF SOB OR RESPIRATORY DISTRESS NOTED. PATIENT IS STABLE ON ROOM AIR. V/S ARE WNL. PATIENT HAS ELECTRIC WHEELCHAIR AT BEDSIDE. PATIENT NOTED WITH WOUND AT BILATERAL LOWER EXTREMITIES, PATIENT STATES WOULD LIKE PICTURE OF CURRENT PROBLEM AT THIS TIME, LEFT HIP AREA. PATIENT REQUESTING FOR PAIN MANAGEMENT WITH MEDICATION. SAFETY MEASURES ARE IN PLACE, BED IS LOCKED AND PLACED IN THE LOWEST POSITION, SIDE RAILS UP X 2, CALL LIGHT IS WITHIN REACH. WILL CONTINUE WITH PATIENT PLAN OF CARE.
[2020-09-17] MEDS ORDERED: HYDROMORPHONE 1 MG/1 ML DISP.SYRIN IV PRN (21:30)
--- NOTE | 2020-09-17 21:45 | NUR ---
PAIN MANAGEMENT PATIENT STATED LEFT HIP PAIN, WOULD LIKE PAIN MEDICATION. PATIENT GIVEN DILAUDID 1 MG IVP, V/S ARE STABLE.
[2020-09-17] MEDS ORDERED: ACETAMINOPHEN 325 MG TABLET PO PRN (23:30)
[2020-09-17] MEDS ORDERED: ZOLPIDEM TARTRATE 5 MG TABLET PO PRN (23:30)
[2020-09-17] MEDS ORDERED: Z GUARD REMEDY 2 OZ OINT TP PRN (23:30)
[2020-09-18] MEDS ORDERED: HYDROMORPHONE MDV 1 MG in IV D5W 50 ML IV ONE
[2020-09-18] MEDS ORDERED: HYDROMORPHONE MDV 2 MG in IV D5W 50 ML IV PRN
[2020-09-18] MEDS: diphenhydrAMINE HCL 50 MG/ML VIAL IV PRN ×3 (01:00→22:45)
[2020-09-18] MEDS: HYDROMORPHONE 1 MG/1 ML DISP.SYRIN IV PRN ×6 (01:09→22:23)
--- NOTE | 2020-09-18 01:10 | NUR ---
PAIN MANAGEMENT PATIENT STATED LEFT HIP PAIN, WOULD LIKE PAIN MEDICATION. PATIENT GIVEN DILAUDID 2 MG IVP, V/S ARE STABLE.
[2020-09-18] MEDS: IV 1/2NS 1000 ML 1,000 ML IV PRN (01:29)
--- NOTE | 2020-09-18 02:55 | NUR ---
MS/RN NOTES PATIENT EXPERIENCING FULL BODY ITCH PT GIVEN BENADRYL 50 MG IVP, WILL CONTINUE TO MONITOR Addendum: 09/18/20 at 0257 by ALEXANDRE DE SANTIAGO RN MEDICATION GIVEN AT 0100 HRS
--- NOTE | 2020-09-18 05:50 | NUR ---
PAIN MANAGEMENT PATIENT STATED LEFT HIP PAIN, WOULD LIKE PAIN MEDICATION. PATIENT GIVEN DILAUDID 2 MG IVP, V/S ARE STABLE.
[2020-09-18 06:40] LABS: BASOPHILS % (AUTO) 0.5 % (0.0-2.0); EOSINOPHILS % (AUTO) 7.1 % (0.0-6.0); HEMATOCRIT 33 % (39-51); HEMOGLOBIN 10.3 g/dL (13.5-17.5); LYMPHOCYTES # (AUTO) 1.3 /CMM (0.8-4.8); LYMPHOCYTES % (AUTO) 13.6 % (20.0-44.0); MEAN CORPUSCULAR HGB CONC 31 g/dl (31.0-36.0); MEAN CORPUSCULAR VOLUME 84 fL (80-96); MONOCYTES # (AUTO) 0.3 /CMM (0.1-1.30); MONOCYTES % (AUTO) 2.8 % (2.0-12.0); NEUTROPHILS # (AUTO) 7.4 /CMM (1.8-8.9); PLATELET COUNT (AUTO) 410 /CMM (150-450); WHITE BLOOD COUNT (AUTO) 9.8 K/uL (4.3-11.0)
--- NOTE | 2020-09-18 06:40 | NUR ---
MS/RN CLOSING NOTES PATIENT IN BED RESTING. PATIENT IS ALERT AND ORIENTED X 4. PATIENT BREATHING IS EVEN AND UNLABORED. NO SIGNS OF SOB OR RESPIRATORY DISTRESS NOTED. PICC LINE DOUGLAS INTACT FLUSHING WELL. SUPRAPUBIC CATH IN PLACE, DRAIN YELLOW URINE. ALL NEEDS HAVE BEEN MET DURING SHIFT. SAFETY MEASURES ARE IN PLACE. WILL ENDORSE CARE TO DAY SHIFT NURSE.
[2020-09-18 07:21] LABS: ALBUMIN 2.4 g/dL (3.4-5.0); BILIRUBIN,TOTAL 0.3 mg/dL (0.2-1.0); CALCIUM, SERUM 9.1 mg/dL (8.5-10.1); CREATININE 2.6 mg/dL (0.6-1.3); MAGNESIUM 1.6 mg/dL (1.8-2.4); PHOSPHORUS 4.2 mg/dL (2.5-4.9); TOTAL PROTEIN, SERUM 8.7 g/dL (6.4-8.2)
--- NOTE | 2020-09-18 07:35 | NUR ---
MS RN OPENING NOTES RECEIVED PATIENT IN BED, AWAKE, ALERT AND ORIENTED X 4. PATIENT SHOWS NO SIGNS OF SOB OR RESPIRATORY DISTRESS NOTED. PATIENT IS STABLE ON ROOM AIR. V/S ARE WNL. PATIENT NOTED WITH WOUND AT BILATERAL LOWER EXTREMITIES, REFUSED PICTURES TO BE TAKEN AT THIS TIME, PATIENT STATES WOULD LIKE PICTURE OF CURRENT PROBLEM AT THIS TIME, LEFT HIP AREA. SAFETY MEASURES ARE IN PLACE, BED LOCKED AND PLACED IN THE LOWEST POSITION, SIDE RAILS UP X 2, CALL LIGHT IS WITHIN REACH. WILL CONTINUE TO MONITOR CURRENT STATUS.
[2020-09-18 07:38] LABS: THYROID STIMULATING HORMONE 2.971 uIU/mL (0.358-3.74)
[2020-09-18 08:00] VITALS: BP 130/75
[2020-09-18] MEDS: PANTOPRAZOLE 40 MG TABLET.DR PO SCH (08:09)
[2020-09-18] MEDS: DOCUSATE SODIUM 100 MG CAPSULE PO SCH ×2 (08:26→17:01)
[2020-09-18] MEDS: HEPARIN SODIUM, PORCINE 5000 UNITS/1 ML VIAL SQ SCH ×2 (08:28→21:11)
[2020-09-18] MEDS ORDERED: AZTREONAM 1 G in IV NS 0.9% 100 ML IV SCH (09:00)
--- NOTE | 2020-09-18 09:50 | NUR ---
RN NOTES PATIENT C/O OF LEFT HIP PAIN WITH PAIN SCALE OF 8/10. DUE PRN PAIN MEDICATION GIVEN, WILL CONTINUE TO MONITOR PAIN STATUS.
[2020-09-18] MEDS: AZTREONAM 1 G in IV NS 0.9% 100 ML IV SCH ×2 (10:24→17:01)
--- NOTE | 2020-09-18 11:05 | NUR ---
RN NOTES RELAYED MAGNESIUM RESULT OF 1.[address] SPENCER, ACKNOWLEDGED, NO NEW ORDER AT THIS TIME.
[2020-09-18] MEDS: VANCOMYCIN 1 GM in IV D5W 250ml IV SCH (11:40)
--- NOTE | 2020-09-18 13:48 | NUR ---
RN NOTES PATIENT C/O PAIN ON LEFT HIP WITH PAIN SCALE OF 8/10. DUE PRN PAIN MEDS GIVEN. WILL CONTINUE TO MONITOR.
[2020-09-18 16:00] VITALS: BP 134/71
--- NOTE | 2020-09-18 16:00 | NUR ---
RN NOTES PATIENT AGREED TO TAKE PHOTOS OF WOUNDS ON BOTH LOWER EXTREMITIES. PHOTOS TAKEN AND FILED INTO PATIENT'S CHART.
[2020-09-18 19:28] LABS: CREATININE, URINE 85.5 MG/DL (30.0-125.0); URINE TOTAL PROTEIN 178.9 mg/dL (0-11.9)
--- NOTE | 2020-09-18 19:29 | NUR ---
MS RN OPENING NOTES: RECEIVED RESIDENT AWAKE IN BED, BED IN LOW POSITION, CALL LIGHTS WITHIN REACH, NO COMPLAIN OF PAIN AND DISCOMFORT AT THIS TIME, PATIENT IS A/O 4 ABLE TO MAKE NEED KNOWN, PARAPLEGIC WITH SUPRA PUBIC CATHETER WITH 400CC UNRINE OUTPUT, CARL, WITH DOUGLAS MIDLINE WITH 1/2 NSS RUNNING AT 70 ML/HR INFUSING WELL, ON REGULAR DIET, KEPT CLEAN AND DRY, WILL CONTINUE TO MONITOR.
[2020-09-18 19:31] LABS: BILIRUBIN,URINE NEGATIVE (NEGATIVE); COLOR,URINE YELLOW (YELLOW); LEUKOCYTE ESTERASE ,URINE LARGE (NEGATIVE); NITRITE, URINE NEGATIVE (NEGATIVE); PROTEIN,URINE 100 mg/dl (NEGATIVE); UGLUCOSE NEGATIVE (NEGATIVE); UROBILINOGEN,URINE 0.2 EU/dL (0.2)
[2020-09-18 20:00] VITALS: BP 131/72
[2020-09-18 20:05] LABS: BACTERIA,URINE 2+ /HPF (None Seen); RBC,URINE 51-80 /HPF (0-2); SQUAMOUS EPITHELIAL CELL,UR 0-2 /HPF (None Seen); WBC,URINE 51-80 /HPF (0-3)
[2020-09-18 20:28] LABS: EOSINOPHIL,URINE None Seen
[2020-09-18 22:00] VITALS: BP 131/72
--- NOTE | 2020-09-18 22:40 | NUR ---
RN NOTES: RESIDENT COMPLAIN OF L HIP PAIN PRN DILAUDID 2MG Q4H GIVEN FOR PS-9
[2020-09-19] MEDS: AZTREONAM 1 G in IV NS 0.9% 100 ML IV SCH ×3 (01:09→16:05)
[2020-09-19] MEDS: HYDROMORPHONE 1 MG/1 ML DISP.SYRIN IV PRN ×6 (02:46→23:16)
[2020-09-19] MEDS: VANCOMYCIN 1 GM in IV D5W 250ml IV SCH ×2 (04:59→23:00)
[2020-09-19] MEDS: diphenhydrAMINE HCL 50 MG/ML VIAL IV PRN ×3 (05:00→17:30)
--- NOTE | 2020-09-19 07:33 | NUR ---
MS RN OPENING NOTES RECEIVED PATIENT IN BED, AWAKE, ALERT AND ORIENTED X 4. PATIENT IS BREATHING EVENLY AND NONLABORED, NO SIGNS OF SOB OR RESPIRATORY DISTRESS NOTED. PATIENT IS STABLE ON ROOM AIR. PATIENT'S IV ACCESS DOUGLAS PICC LINE RUNNING VANCOMYCIN, PATENT INTACT. PATIENT NOTED WITH SUPRAPUBIC CATHETER, DRAINING CLEAR YELLOW URINE. PATIENT NOTED WITH WOUND AT BILATERAL LOWER EXTREMITIES, DRESSING C/D/I. SAFETY MEASURES ARE IN PLACE, BED LOCKED AND PLACED IN THE LOWEST POSITION, SIDE RAILS UP X 2, CALL LIGHT IS WITHIN REACH. WILL CONTINUE TO MONITOR
[2020-09-19] MEDS: PANTOPRAZOLE 40 MG TABLET.DR PO SCH (07:39)
[2020-09-19 08:00] VITALS: BP 157/81
[2020-09-19] MEDS: HEPARIN SODIUM, PORCINE 5000 UNITS/1 ML VIAL SQ SCH ×2 (08:27→20:48)
[2020-09-19] MEDS: DOCUSATE SODIUM 100 MG CAPSULE PO SCH ×2 (08:28→16:05)
--- NOTE | 2020-09-19 08:49 | NUR ---
RN NOTE PATIENT REFUSED COLACE, PATIENT STATED IT CAN GIVE HIM LOOSE STOOLS. EXPLAINED RISK AND BENEFITS X2, PATIENT STILL REFUSED. WILL CONTINUE TO MONITOR
--- NOTE | 2020-09-19 10:53 | NUR ---
RN NOTE PATIENT COMPLAINED OF SEVERE PAIN IN THE LEFT HIP 12/17. PATIENT ASKED FOR PRN PAIN MEDICATION. WILL GIVE PRN PAIN MEDICATION ORDERED. WILL CONTINUE TO MONITOR
[2020-09-19 11:20] LABS: BASOPHILS # (AUTO) 0.1 /CMM (0.0-0.2); BASOPHILS % (AUTO) 0.7 % (0.0-2.0); EOSINOPHILS % (AUTO) 10.5 % (0.0-6.0); HEMATOCRIT 30 % (39-51); HEMOGLOBIN 9.7 g/dL (13.5-17.5); LYMPHOCYTES # (AUTO) 1.3 /CMM (0.8-4.8); LYMPHOCYTES % (AUTO) 17.8 % (20.0-44.0); MEAN CORPUSCULAR HGB CONC 32 g/dl (31.0-36.0); MEAN CORPUSCULAR VOLUME 84 fL (80-96); MONOCYTES # (AUTO) 0.4 /CMM (0.1-1.30); MONOCYTES % (AUTO) 5.2 % (2.0-12.0); NEUTROPHILS # (AUTO) 4.9 /CMM (1.8-8.9); NEUTROPHILS % (AUTO) 65.8 % (43.0-81.0); PLATELET COUNT (AUTO) 373 /CMM (150-450); WHITE BLOOD COUNT (AUTO) 7.5 K/uL (4.3-11.0)
[2020-09-19 11:35] LABS: ALBUMIN 2.3 g/dL (3.4-5.0); BILIRUBIN,TOTAL 0.2 mg/dL (0.2-1.0); CALCIUM, SERUM 8.4 mg/dL (8.5-10.1); CREATININE 2.7 mg/dL (0.6-1.3); MAGNESIUM 1.6 mg/dL (1.8-2.4); PHOSPHORUS 4.2 mg/dL (2.5-4.9); POTASSIUM 4.6 mmol/L (3.5-5.1)
--- NOTE | 2020-09-19 11:35 | NUR ---
RN NOTES PATIENT COMPLAINING FULL BODY ITCHINESS. PATIENT ASKED FOR PRN BENADRYL. PT GIVEN BENADRYL 50 MG IVP ORDERED, WILL CONTINUE TO MONITOR
--- NOTE | 2020-09-19 14:00 | NUR ---
RN NOTE WOUND CONSULT ORDERED
[2020-09-19] MEDS: IV 1/2NS 1000 ML 1,000 ML IV PRN (15:00)
[2020-09-19 15:59] VITALS: BP 125/97
--- NOTE | 2020-09-19 17:18 | NUR ---
RN NOTE MAG LEVEL 1.6, MD AWARE. STATED TO RECHECK TOMORROW MORNING. WILL CONTINUE TO MONITOR
--- NOTE | 2020-09-19 17:23 | NUR ---
RN NOTES PATIENT COMPLAINING FULL BODY ITCHINESS. PATIENT ASKED FOR PRN BENADRYL. PT GIVEN BENADRYL 50 MG IVP ORDERED, WILL CONTINUE TO MONITOR
--- NOTE | 2020-09-19 18:52 | NUR ---
MS RN CLOSING NOTES PATIENT IN BED, RESTING, ALERT AND ORIENTED X 4. PATIENT IS BREATHING EVENLY AND NONLABORED, NO SIGNS OF SOB OR RESPIRATORY DISTRESS NOTED. PATIENT IS STABLE ON ROOM AIR. PATIENT'S IV ACCESS DOUGLAS PICC LINE RUNNING 1/2 NS @ 70 ML/HR, PATENT INTACT. PATIENT NOTED WITH SUPRAPUBIC CATHETER, DRAINING CLEAR YELLOW URINE. PATIENT NOTED WITH WOUNDS, WOUND CARE PERFORMED, DRESSING C/D/I. ALL MEDICATION GIVEN ORDERED.PATIENT COMPLAINED OF SEVERE PAIN 12/17. PATIENT ASKED FOR PRN PAIN MEDICATION. WILL GIVE MEDICATION ORDERED. SAFETY MEASURES ARE IN PLACE, BED LOCKED AND PLACED IN THE LOWEST POSITION, SIDE RAILS UP X 2, CALL LIGHT IS WITHIN REACH. WILL ENDORSE TO ONCOMING SHIFT
--- NOTE | 2020-09-19 19:23 | NUR ---
MS RN OPENING NOTES: RECEIVED PATIENT IN BED AWAKE, A/O X 4 ABLE TO MAKE NEEDS KNOWN, NO COMLAIN OF PAIN AND DISCOMFORT AT THIS TIME, WITH IV LINE AT DOUGLAS PICC LINE WITH ONGOING 1/2 NSS@70ML/HR INFUSING WELL, ON SUPRAPUBIC CATHETER, DRESSING CLEAN AND DRY, WITH 100CC URINE OUTPUT, ALL NEEDS MET, PATIENT KEPT JOHN AND DRY WILL CONTINUE TO MONITOR.
[2020-09-19 20:16] VITALS: BP 132/68
--- NOTE | 2020-09-19 23:30 | NUR ---
MS FLORES NOTES: VANCOMYCIN1 GM DUE AT 2300 NOT GIVEN, VANCO TROUGH RESULT FOR 2200=24
[2020-09-20] MEDS: diphenhydrAMINE HCL 50 MG/ML VIAL IV PRN ×4 (00:27→18:18)
[2020-09-20] MEDS: AZTREONAM 1 G in IV NS 0.9% 100 ML IV SCH ×3 (01:20→16:11)
[2020-09-20 02:35] VITALS: BP 132/68
[2020-09-20] MEDS: HYDROMORPHONE 1 MG/1 ML DISP.SYRIN IV PRN ×5 (03:50→20:56)
[2020-09-20 06:46] LABS: BASOPHILS # (AUTO) 0.1 /CMM (0.0-0.2); BASOPHILS % (AUTO) 1.1 % (0.0-2.0); EOSINOPHILS % (AUTO) 11.2 % (0.0-6.0); HEMATOCRIT 31 % (39-51); HEMOGLOBIN 9.9 g/dL (13.5-17.5); LYMPHOCYTES # (AUTO) 1.3 /CMM (0.8-4.8); LYMPHOCYTES % (AUTO) 15.9 % (20.0-44.0); MEAN CORPUSCULAR HGB CONC 32 g/dl (31.0-36.0); MEAN CORPUSCULAR VOLUME 85 fL (80-96); MONOCYTES # (AUTO) 0.5 /CMM (0.1-1.30); MONOCYTES % (AUTO) 6.8 % (2.0-12.0); NEUTROPHILS # (AUTO) 5.2 /CMM (1.8-8.9); PLATELET COUNT (AUTO) 388 /CMM (150-450); RED BLOOD CELL COUNT(AUTO) 3.68 MIL/uL (4.5-6.0); WHITE BLOOD COUNT (AUTO) 7.9 K/uL (4.3-11.0)
--- NOTE | 2020-09-20 06:55 | NUR ---
MS RN CLOSING NOTES: RECEIVED PATIENT AWAKE IN BED, PATIENT A/OX4 NO COMPLAIN OF PAIN AND DISCOMFORT AT THIS TIME, BED IN LOW POSITION, CALL LIGHTS WITHIN REACH, WITH CLAUDIA PICC LINE ON 0.9SS@70 ML /HR ALL NEEDS MET, PATIENT KEPT CLEAN AND DRY WILL CONTINUE TO MONITOR.
--- NOTE | 2020-09-20 07:08 | NUR ---
MS RN OPENING NOTES RECEIVED PATIENT IN BED, AWAKE, ALERT AND ORIENTED X 4. PATIENT IS BREATHING EVENLY AND NONLABORED, NO SIGNS OF SOB OR RESPIRATORY DISTRESS NOTED. PATIENT IS STABLE ON ROOM AIR. PATIENT'S IV ACCESS DOUGLAS PICC LINE RUNNING 1/2 NS @ 70 ML/HR, IV PATENT INTACT. PATIENT NOTED WITH SUPRAPUBIC CATHETER, DRAINING CLEAR YELLOW URINE. PATIENT NOTED WITH WOUNDS, DRESSINGS C/D/I. SAFETY MEASURES ARE IN PLACE, BED LOCKED AND PLACED IN THE LOWEST POSITION, SIDE RAILS UP X 2, CALL LIGHT IS WITHIN REACH. WILL CONTINUE TO MONITOR
[2020-09-20 07:16] LABS: CALCIUM, SERUM 8.1 mg/dL (8.5-10.1); CREATININE 2.7 mg/dL (0.6-1.3); PHOSPHORUS 3.8 mg/dL (2.5-4.9)
[2020-09-20] MEDS: PANTOPRAZOLE 40 MG TABLET.DR PO SCH (07:31)
[2020-09-20 07:33] LABS: MAGNESIUM 1.5 mg/dL (1.8-2.4)
[2020-09-20] MEDS: IV 1/2NS 1000 ML 1,000 ML IV PRN (07:58)
[2020-09-20 08:00] VITALS: BP 121/71
[2020-09-20 08:06] LABS: PTH, INTACT 28 pg/mL (15-65)
[2020-09-20] MEDS: HEPARIN SODIUM, PORCINE 5000 UNITS/1 ML VIAL SQ SCH ×2 (08:09→20:34)
[2020-09-20] MEDS: DOCUSATE SODIUM 100 MG CAPSULE PO SCH ×2 (08:09→16:11)
--- NOTE | 2020-09-20 08:10 | NUR ---
RN NOTE PATIENT REFUSED COLACE, PATIENT STATED IT CAN GIVE HIM LOOSE STOOLS. EXPLAINED RISK AND BENEFITS X2, PATIENT STILL REFUSED. WILL CONTINUE TO MONITOR
--- NOTE | 2020-09-20 09:03 | NUR ---
WOUND CARE CONSULT: PT FOLLOWED BY SURGICAL AND PODIATRY TEAMS FOR WOUNDS. MULTIPLE WOUNDS PRESENT ON ADMISSION. DR JAVED AND DR GONZALEZ NOTIFIED OF ADMISSION. FIRST STEP LOW AIRLOSS MATTRESS IS ON ORDER. RECOMMENDATIONS MADE FOR SKIN PROTECTION AND DISCUSSED WITH NURSING STAFF. MD IN AGREEMENT WITH PLAN OF CARE.
--- NOTE | 2020-09-20 09:55 | NUR ---
RN NOTES RELAYED MAGNESIUM RESULT OF 1.[address] SPENCER, ACKNOWLEDGED, NO NEW ORDER AT THIS TIME.
--- NOTE | 2020-09-20 12:30 | NUR ---
RN NOTES PATIENT COMPLAINING FULL BODY ITCHINESS. PATIENT ASKED FOR PRN BENADRYL. PT GIVEN BENADRYL 50 MG IVP ORDERED, WILL CONTINUE TO MONITOR
[2020-09-20 16:00] VITALS: BP 152/72
--- NOTE | 2020-09-20 18:19 | NUR ---
RN NOTES PATIENT COMPLAINING FULL BODY ITCHINESS. PATIENT ASKED FOR PRN BENADRYL. PT GIVEN BENADRYL 50 MG IVP ORDERED, WILL CONTINUE TO MONITOR
[2020-09-20] MEDS: LORATADINE 10 MG TABLET PO SCH (18:29)
[2020-09-20] MEDS ORDERED: diphenhydrAMINE HCL 50 MG/ML VIAL IV PRN (18:30)
[2020-09-20] MEDS ORDERED: Magnesium 1GM/D5W 100ML PREMIX 100 ML IV SCH (18:30)
--- NOTE | 2020-09-20 18:37 | NUR ---
MS RN CLOSING NOTES PATIENT IN BED, RESTING, ALERT AND ORIENTED X 4. PATIENT IS BREATHING EVENLY AND NONLABORED, NO SIGNS OF SOB OR RESPIRATORY DISTRESS NOTED. PATIENT IS STABLE ON ROOM AIR. PATIENT'S IV ACCESS DOUGLAS PICC LINE RUNNING 1/2 NS @ 70 ML/HR, PATENT INTACT. PATIENT NOTED WITH SUPRAPUBIC CATHETER, DRAINING CLEAR YELLOW URINE. PATIENT NOTED WITH WOUNDS, WOUND CARE PERFORMED, DRESSING C/D/I. ALL MEDICATION GIVEN ORDERED. SAFETY MEASURES ARE IN PLACE, BED LOCKED AND PLACED IN THE LOWEST POSITION, SIDE RAILS UP X 2, CALL LIGHT IS WITHIN REACH. WILL ENDORSE TO ONCOMING SHIFT
--- NOTE | 2020-09-20 19:35 | NUR ---
MS RN OPENING NOTE RECEIVED PT AWAKE IN BED. A/O X4. PT STABLE ON ROOM AIR. NO SOB NOTED. NO S/S OF RESPIRATORY DISTRESS. PT HAS NO C/O PAIN AT THIS TIME. PICC LINE NOTED IN DOUGLAS, INFUSING 1/2 NS @ 70 ML/HR. IV IS INTACT AND PATENT. PT NOTED WITH SUPRAPUBIC CATHETER, DRAINING CLEAR YELLOW URINE. PT NOTED WITH WOUNDS, DRESSINGS C/D/I. SAFETY MEASURES MAINTAINED, BED IN LOWEST LOCKED POSITION, HOB ELEVATED, SIDE RAILS UP X2. CALL LIGHT AND TABLE WITHIN REACH. WILL CONTINUE WITH PLAN OF CARE.
[2020-09-20] MEDS: ONDANSETRON HCL/PF 4 MG/2 ML VIAL IVP PRN (19:41)
--- NOTE | 2020-09-20 19:41 | NUR ---
PT C/O NAUSEA. NO EMESIS NOTED. PER PT REQUEST, ADMINISTERED ZOFRAN 4 MG IVP Q6H PRN FOR NAUSEA. WILL CONTINUE TO MONITOR PT.
[2020-09-20 20:00] VITALS: BP 146/74
[2020-09-20] MEDS: DOXYCYCLINE 100 MG in IV D5W 100 ML IV SCH (20:22)
--- NOTE | 2020-09-20 20:56 | NUR ---
MS RN PAIN PT C/O SHARP AND ACHING PAIN IN LEFT HIP, RATED 9/10 ON 0-10 PAIN SCALE. VSS. PER PT REQUEST, ADMINISTERED DILAUDID 2 MG IV Q4H PRN FOR PAIN. WILL CONTINUE TO MONITOR.
[2020-09-21] MEDS: diphenhydrAMINE HCL 50 MG/ML VIAL IV PRN ×2 (00:18→15:21)
--- NOTE | 2020-09-21 00:18 | NUR ---
PT C/O FULL BODY ITCHINESS. PER PT REQUEST, ADMINISTERED BENADRYL 50 MG IV Q6H PRN FOR BODY ITCH. WILL CONTINUE TO MONITOR PT.
[2020-09-21] MEDS: AZTREONAM 1 G in IV NS 0.9% 100 ML IV SCH ×2 (01:13→08:09)
[2020-09-21] MEDS: HYDROMORPHONE 1 MG/1 ML DISP.SYRIN IV PRN ×6 (02:04→22:05)
[2020-09-21] MEDS: IV 1/2NS 1000 ML 1,000 ML IV PRN (05:01)
--- NOTE | 2020-09-21 06:07 | NUR ---
MS RN PAIN PT C/O SHARP AND ACHING PAIN IN LEFT HIP, RATED 10/10 ON 0-10 PAIN SCALE. VSS. PER PT REQUEST, ADMINISTERED DILAUDID 2 MG IV Q4H PRN FOR PAIN. WILL CONTINUE TO MONITOR.
[2020-09-21 06:32] LABS: BASOPHILS # (AUTO) 0.1 /CMM (0.0-0.2); BASOPHILS % (AUTO) 1.1 % (0.0-2.0); EOSINOPHILS % (AUTO) 13.1 % (0.0-6.0); HEMATOCRIT 23 % (39-51); HEMOGLOBIN 7.2 g/dL (13.5-17.5); LYMPHOCYTES # (AUTO) 1.2 /CMM (0.8-4.8); MEAN CORPUSCULAR HGB CONC 32 g/dl (31.0-36.0); MEAN CORPUSCULAR VOLUME 86 fL (80-96); MONOCYTES # (AUTO) 0.5 /CMM (0.1-1.30); MONOCYTES % (AUTO) 8.5 % (2.0-12.0); NEUTROPHILS # (AUTO) 2.9 /CMM (1.8-8.9); NEUTROPHILS % (AUTO) 54.3 % (43.0-81.0); PLATELET COUNT (AUTO) 261 /CMM (150-450); RED BLOOD CELL COUNT(AUTO) 2.65 MIL/uL (4.5-6.0); WHITE BLOOD COUNT (AUTO) 5.3 K/uL (4.3-11.0)
--- NOTE | 2020-09-21 06:39 | NUR ---
MS RN CLOSING NOTE PT IS AWAKE IN BED. A/O X4. PT STABLE ON ROOM AIR. NO SOB NOTED. NO S/S OF RESPIRATORY DISTRESS. PT HAS NO C/O PAIN AT THIS TIME. PICC LINE NOTED IN DOUGLAS, INFUSING 1/2 NS @ 70 ML/HR. IV IS INTACT AND PATENT. PT NOTED WITH SUPRAPUBIC CATHETER, DRAINING CLEAR YELLOW URINE. ALL NEEDS HAVE BEEN MET. PAIN MANAGEMENT AND WOUND CARE ADMINISTERED PER ORDER. PT REPOSITIONED Q2H AND PRN. SAFETY PRECAUTIONS MAINTAINED AT ALL TIMES. BED IN LOWEST LOCKED POSITION, HOB ELEVATED, SIDE RAILS UP X2. CALL LIGHT AND TABLE WITHIN REACH. WILL ENDORSE TO ONCOMING NURSE FOR SOM.
[2020-09-21 06:50] LABS: CALCIUM, SERUM 7.8 mg/dL (8.5-10.1); CREATININE 2.4 mg/dL (0.6-1.3); MAGNESIUM 1.7 mg/dL (1.8-2.4); PHOSPHORUS 3.4 mg/dL (2.5-4.9); POTASSIUM 3.7 mmol/L (3.5-5.1)
--- NOTE | 2020-09-21 07:36 | NUR ---
MS RN OPENING NOTES PATIENT IS RESTING IN BED, EYES CLOSED, ABLE TO BE AWAKENED. A/O X4, ABLE TO MAKE NEEDS KNOWN. BREATHING EVEN AND UNLBAORED, TOLERATING ROOM AIR. PICC LINE ON DOUGLAS, INTACT AND PATENT, IVF OF 1/2 NS @ 70 ML/HR. SUPRAPUBIC CATHETER IN PLACE, DRAINING CLEAR, YELLOW URINE. SAFETY PRECAUTIONS IN PLACE. WILL CONTINUE TO MONITOR.
[2020-09-21 08:00] VITALS: BP 131/76
[2020-09-21] MEDS: HEPARIN SODIUM, PORCINE 5000 UNITS/1 ML VIAL SQ SCH ×2 (08:02→20:12)
--- NOTE | 2020-09-21 08:02 | NUR ---
RN NOTES HEPARIN DOSE HELD TODAY D/T LOW HGB/HCT RESULT.
[2020-09-21 08:07] LABS: *SPE A/G RATIO 0.6 (0.7-1.7); *SPE ALBUMIN 2.7 g/dL (2.9-4.4); *SPE ALPHA-1-GLOBULIN 0.2 g/dL (0.0-0.4); *SPE ALPHA-2-GLOBULIN 0.9 g/dL (0.4-1.0); *SPE BETA GLOBULIN 0.9 g/dL (0.7-1.3); *SPE GLOBULIN, TOTAL 4.6 g/dL (2.2-3.9); *SPE M-SPIKE Not Observed g/dL (Not Observed); *SPEGAMMA GLOBULIN 2.5 g/dL (0.4-1.8)
[2020-09-21] MEDS: DOXYCYCLINE 100 MG in IV D5W 100 ML IV SCH ×2 (08:07→20:11)
[2020-09-21] MEDS: DOCUSATE SODIUM 100 MG CAPSULE PO SCH ×3 (08:07→16:05)
[2020-09-21] MEDS: LORATADINE 10 MG TABLET PO SCH (08:07)
[2020-09-21] MEDS: PANTOPRAZOLE 40 MG TABLET.DR PO SCH (08:08)
[2020-09-21] MEDS ORDERED: VANCOMYCIN 1 GM in IV D5W 250ml IV SCH (09:00)
[2020-09-21] MEDS ORDERED: Magnesium 1GM/D5W 100ML PREMIX 100 ML IV SCH (09:00)
--- NOTE | 2020-09-21 12:10 | NUR ---
RN NOTES SEEN BY JÚNIOR, WOUND CONSULT, W/ TX ORDERS NOTED.
--- NOTE | 2020-09-21 12:23 | NUR ---
RN NOTES RECEIVED CALL FROM PHARMACY ABOUT PATIENT'S POSSIBLE VANCOMYCIN ADVERSE REACTION; SPOKE W/ PATIENT AND ASKED ABOUT MEDICATION REACTION AND PATIENT STATED THAT HE FELT LIKE HE WAS "BEING HAMMERED BY NAILS". WILFREDO Li/Jay, MATTHEW, PHARMACIST, INFORMED ABOUT VERIFIED ALLERGY.
[2020-09-21] MEDS: THERAHONEY GEL 1.5 OZ TUBE TP SCH (13:40)
[2020-09-21 16:00] VITALS: BP 158/80
--- NOTE | 2020-09-21 16:05 | NUR ---
RN NOTES PATIENT DOES NOT WANT TO TAKE COLACE, REFUSED MEDICATION.
--- NOTE | 2020-09-21 19:20 | NUR ---
RN NOTES PATIENT IN BED USING HIS PERSONAL TABLET DEVICE, NOT IN ACUTE DISTRESS. PREVIOUSLY GIVEN PAIN MEDICATION, NO COMPLAINT OF PAIN AT THIS TIME. IVF CONTINUOUS, INFUSING WELL. SEEN BY GARY CALLEJAS, TODAY FOR WOUND CARE. ENDORSED TO EXTRUDER OPERATOR HELPER RN FOR SOM.
--- NOTE | 2020-09-21 19:30 | NUR ---
MS RN NOTES Patient is awake, alert and oriented x4. States pain is 4/10 at this time but tolerable. No other issues. Suprapubic catheter patent and draining clear yellow urine. DOUGLAS PICC line intact and running 1/2 NS at 70cc/hr. No signs of distress. Will continue to monitor.
[2020-09-21 20:00] VITALS: BP 139/76
[2020-09-21] MEDS: ONDANSETRON HCL/PF 4 MG/2 ML VIAL IVP PRN (20:25)
--- NOTE | 2020-09-21 20:34 | NUR ---
MS RN NOTES HEPARIN DOSE HELD TODAY D/T LOW HGB/HCT RESULT. Labs tomorrow to reassess. Patient encouraged to do leg exercises in bed.
[2020-09-22] MEDS: HYDROMORPHONE 1 MG/1 ML DISP.SYRIN IV PRN ×6 (02:12→23:28)
[2020-09-22] MEDS: IV 1/2NS 1000 ML 1,000 ML IV PRN (02:32)
--- NOTE | 2020-09-22 06:34 | NUR ---
MS RN CLOSING NOTES Patient A&Ox4. Sleeping intermittently throughout the night, awaking to pain asking for PRN pain medication. Given as per MD order. Dressing to L buttock/hip, L hip, R lateral midfoot, sacrum c/d/i. Patient refusing linen change and refuses repositioning because he states "I can reposition myself" occasionally lets staff minimally assist. Staff reminds patient to turn q2h to prevent further injury and to better manage pain. Suprapubic catheter patent and draining clear, yellow, urine. No ase from IV ABX.
--- NOTE | 2020-09-22 07:25 | NUR ---
ms rn received on bed, awake,alert,oriented x4,not in any form of distress, respirations even and unlabored,no sob noted, lungs are clear,abdomen soft,positive bowel sounds,denies pain at this time, will monitor patient's condition.
[2020-09-22 07:35] LABS: CALCIUM, SERUM 8.3 mg/dL (8.5-10.1); CREATININE 2.3 mg/dL (0.6-1.3); MAGNESIUM 1.7 mg/dL (1.8-2.4)
[2020-09-22 08:00] VITALS: BP 160/82
[2020-09-22] MEDS: THERAHONEY GEL 1.5 OZ TUBE TP SCH (09:00)
--- NOTE | 2020-09-22 09:20 | NUR ---
ms ortiz breakfast served,due meds given, tolerated well.
[2020-09-22] MEDS: LORATADINE 10 MG TABLET PO SCH (09:41)
[2020-09-22] MEDS: DOCUSATE SODIUM 100 MG CAPSULE PO SCH ×2 (09:41→17:00)
[2020-09-22] MEDS: PANTOPRAZOLE 40 MG TABLET.DR PO SCH (09:42)
[2020-09-22] MEDS: DOXYCYCLINE 100 MG in IV D5W 100 ML IV SCH ×2 (09:42→21:12)
[2020-09-22] MEDS: HEPARIN SODIUM, PORCINE 5000 UNITS/1 ML VIAL SQ SCH ×2 (09:46→21:12)
--- NOTE | 2020-09-22 09:50 | NUR ---
ms rn patient refused to change dressing to hip and buttocks will try again in pm.
[2020-09-22] MEDS: Magnesium 1GM/D5W 100ML PREMIX 100 ML IV SCH ×2 (10:25→11:23)
--- NOTE | 2020-09-22 12:00 | NUR ---
ms rn on bed,no distress noted.
[2020-09-22 16:00] VITALS: BP 144/78
[2020-09-22] MEDS: ENSURE ENLIVE 237 ML LIQUID (VANILLA) PO SCH (17:00)
--- NOTE | 2020-09-22 17:30 | NUR ---
ms rn patient refused to be change sibce this morning, refused to change dressing iether.
--- NOTE | 2020-09-22 18:04 | NUR ---
ms rn on bed, no distress noted,all needs attended.
[2020-09-22 20:00] VITALS: BP 138/77
--- NOTE | 2020-09-22 20:00 | NUR ---
patient refused to be repositioned at this time.
--- NOTE | 2020-09-22 22:00 | NUR ---
patient refused repositined at this time. refused wound care. per report earlier from guillermo pt was refusing earlier in the day.
[2020-09-23] MEDS: diphenhydrAMINE HCL 50 MG/ML VIAL IV PRN (00:27)
--- NOTE | 2020-09-23 03:19 | NUR ---
patient bathed showered, repositiened wound care perofrmed as ordered.
[2020-09-23] MEDS: IV 1/2NS 1000 ML 1,000 ML IV PRN ×2 (03:24→18:33)
[2020-09-23] MEDS: HYDROMORPHONE 1 MG/1 ML DISP.SYRIN IV PRN ×5 (05:01→21:13)
[2020-09-23 06:47] LABS: CALCIUM, SERUM 8.4 mg/dL (8.5-10.1); CREATININE 2.1 mg/dL (0.6-1.3); MAGNESIUM 1.7 mg/dL (1.8-2.4); PHOSPHORUS 3.2 mg/dL (2.5-4.9); POTASSIUM 4.1 mmol/L (3.5-5.1)
[2020-09-23 07:03] LABS: BASOPHILS # (AUTO) 0.1 /CMM (0.0-0.2); HEMATOCRIT 29 % (39-51); HEMOGLOBIN 9.4 g/dL (13.5-17.5); LYMPHOCYTES # (AUTO) 1.2 /CMM (0.8-4.8); LYMPHOCYTES % (AUTO) 15.3 % (20.0-44.0); MEAN CORPUSCULAR HGB CONC 32 g/dl (31.0-36.0); MEAN CORPUSCULAR VOLUME 84 fL (80-96); MONOCYTES # (AUTO) 0.5 /CMM (0.1-1.30); MONOCYTES % (AUTO) 6.6 % (2.0-12.0); NEUTROPHILS # (AUTO) 5.3 /CMM (1.8-8.9); NEUTROPHILS % (AUTO) 68.1 % (43.0-81.0); PLATELET COUNT (AUTO) 313 /CMM (150-450); RED BLOOD CELL COUNT(AUTO) 3.48 MIL/uL (4.5-6.0); WHITE BLOOD COUNT (AUTO) 7.8 K/uL (4.3-11.0)
--- NOTE | 2020-09-23 07:25 | NUR ---
ms rn received on bed, awake,alert,oriented x4mnot in any form of distress, respirations even and unlabored,no sob noted, lungs are clear,abdomen soft,positive bowel sounds,denies pain at this time, suprapubic cath intact, draining yellowish urine, denies pain at this time,all needs attended.
[2020-09-23 08:00] VITALS: BP 162/85
[2020-09-23 08:07] LABS: IMMUNOGLOBULIN A, SERUM 309 mg/dL (90-386); IMMUNOGLOBULIN G, SERUM 2718 mg/dL (603-1613); IMMUNOGLOBULIN M, SERUM 86 mg/dL (20-172)
--- NOTE | 2020-09-23 08:30 | NUR ---
ms rn patient went down fo ct abd and hip, will give meds when patient comes back.
[2020-09-23] MEDS: ENSURE ENLIVE 237 ML LIQUID (VANILLA) PO SCH ×2 (09:00→17:00)
--- NOTE | 2020-09-23 10:05 | NUR ---
ms rn patient came back from the procedure.
[2020-09-23] MEDS: LORATADINE 10 MG TABLET PO SCH (10:12)
[2020-09-23] MEDS: DOCUSATE SODIUM 100 MG CAPSULE PO SCH ×2 (10:12→17:00)
[2020-09-23] MEDS: DOXYCYCLINE HYCLATE (100 MG) 100 MG TABLET PO SCH ×2 (10:13→20:47)
[2020-09-23] MEDS: PANTOPRAZOLE 40 MG TABLET.DR PO SCH (10:21)
[2020-09-23] MEDS: HEPARIN SODIUM, PORCINE 5000 UNITS/1 ML VIAL SQ SCH ×2 (10:23→20:55)
[2020-09-23] MEDS ORDERED: Magnesium 1GM/D5W 100ML PREMIX 100 ML IV SCH (10:30)
[2020-09-23 16:00] VITALS: BP 163/90
--- NOTE | 2020-09-23 18:03 | NUR ---
ms rn on bed,no distress noted,all needs attended.
[2020-09-23] MEDS: THERAHONEY GEL 1.5 OZ TUBE TP SCH (18:53)
--- NOTE | 2020-09-23 19:39 | NUR ---
MIGRATORY WORKER NOTES: RECEIVED PATIENT AWAKE IN BED, BED IN LOW POSITION, CALL LIGHTS WITHIN REACH, NO COMPLAIN OF PAIN AND DISCOMFORT AT THIS TIME, ON RA NO SOB NOTED. PATIENT IS A/OX4 ABLE TO MAKE NEEDS KNOWN, WITH SUPRAPUBIC CATHETER WITH 200CC URINE OUTPUT WITH DOUGLAS PICC LINE WITH ONGOING 1/2 NSS @70ML/HR INFUSING WELL, KEPT CLEAN AND DRY, WILL CONTINUE TO MONITOR.
[2020-09-23 20:00] VITALS: BP 152/62
[2020-09-24] MEDS: HYDROMORPHONE 1 MG/1 ML DISP.SYRIN IV PRN ×6 (01:19→20:41)
[2020-09-24 06:31] LABS: BASOPHILS # (AUTO) 0.1 /CMM (0.0-0.2); EOSINOPHILS % (AUTO) 9.5 % (0.0-6.0); HEMATOCRIT 29 % (39-51); HEMOGLOBIN 9.3 g/dL (13.5-17.5); LYMPHOCYTES # (AUTO) 1.5 /CMM (0.8-4.8); LYMPHOCYTES % (AUTO) 18.4 % (20.0-44.0); MEAN CORPUSCULAR HGB CONC 33 g/dl (31.0-36.0); MEAN CORPUSCULAR VOLUME 83 fL (80-96); MONOCYTES # (AUTO) 0.6 /CMM (0.1-1.30); MONOCYTES % (AUTO) 8.2 % (2.0-12.0); NEUTROPHILS # (AUTO) 4.9 /CMM (1.8-8.9); NEUTROPHILS % (AUTO) 62.9 % (43.0-81.0); PLATELET COUNT (AUTO) 315 /CMM (150-450); RED BLOOD CELL COUNT(AUTO) 3.46 MIL/uL (4.5-6.0); WHITE BLOOD COUNT (AUTO) 7.9 K/uL (4.3-11.0)
[2020-09-24 06:34] LABS: CALCIUM, SERUM 8.4 mg/dL (8.5-10.1); MAGNESIUM 1.7 mg/dL (1.8-2.4); PHOSPHORUS 3.8 mg/dL (2.5-4.9); POTASSIUM 4.1 mmol/L (3.5-5.1)
--- NOTE | 2020-09-24 07:30 | NUR ---
RN NOTES PATIENT SEEN IN BED RESTING, PLAYING MOBILE GAMES IN HIS PERSONAL TABLET. A/O X4, VERBALLY RESPONSIVE, NOT IN ACUTE DISTRESS AND ABLE TO MAKE NEEDS KNOWN. BREATHING EVEN AND UNLABORED, TOLERATING ROOM AIR. IVF INFUSING WELL, PICC LINE INTACT AND PATENT. SAFETY MEASURES IN PLACE. WILL CONTINUE TO MONITOR.
[2020-09-24 08:00] VITALS: BP 146/88
[2020-09-24] MEDS: PANTOPRAZOLE 40 MG TABLET.DR PO SCH (08:00)
[2020-09-24] MEDS: DOCUSATE SODIUM 100 MG CAPSULE PO SCH ×2 (08:14→16:14)
[2020-09-24] MEDS: LORATADINE 10 MG TABLET PO SCH (08:14)
[2020-09-24] MEDS: ENSURE ENLIVE 237 ML LIQUID (VANILLA) PO SCH ×2 (08:14→16:15)
[2020-09-24] MEDS: HEPARIN SODIUM, PORCINE 5000 UNITS/1 ML VIAL SQ SCH ×2 (08:15→20:45)
[2020-09-24] MEDS: THERAHONEY GEL 1.5 OZ TUBE TP SCH (08:15)
[2020-09-24] MEDS: DOXYCYCLINE HYCLATE (100 MG) 100 MG TABLET PO SCH ×2 (08:15→20:45)
--- NOTE | 2020-09-24 08:20 | NUR ---
RN CLOSING NOTES PATIENT AWAKE IN BED, NO COMPLAIN OF PAIN AND DISCOMFORT BED IN LOW POSITION, CALL LIGHTS WITHIN REACH, NO SOB NOTED, ALL NEEDS MET, ENDORSE TO INCOMING SHIFT.
[2020-09-24] MEDS: IV 1/2NS 1000 ML 1,000 ML IV PRN (08:57)
[2020-09-24] MEDS ORDERED: Magnesium 1GM/D5W 100ML PREMIX 100 ML IV SCH (10:00)
--- NOTE | 2020-09-24 13:38 | NUR ---
RN NOTES PATIENT SEEN BY JOEL MENDEZ NP, AND MADE AWARE OF PLAN OF CARE.
[2020-09-24 16:00] VITALS: BP 156/81
--- NOTE | 2020-09-24 19:00 | NUR ---
received alert and oriientated x4 playing on his lap top dressing left hip area CDI he moves about in bed independently he is ordering food from the outside reviewed call light with him needed assist to raise his head
--- NOTE | 2020-09-24 19:15 | NUR ---
RN NOTES PATIENT RESTING IN BED USING HIS PERSONAL MOBILE DEVICE. WOUND TX DONE TODAY AND CLEANED FOR COMFORT. IVF INFUSING WELL; NO COMPLAINT OF PAIN AT THIS TIME. ENDORSED TO CLINICAL TRIAL SPECIALIST RN FOR SOM.
[2020-09-24 20:00] VITALS: BP 128/87
[2020-09-24] MEDS: diphenhydrAMINE HCL 50 MG/ML VIAL IV PRN (22:15)
[2020-09-25] MEDS: IV 1/2NS 1000 ML 1,000 ML IV PRN ×2 (02:37→18:43)
[2020-09-25] MEDS: HYDROMORPHONE 1 MG/1 ML DISP.SYRIN IV PRN ×6 (02:42→23:11)
--- NOTE | 2020-09-25 04:54 | NUR ---
ENDING NOTES: AWAKE THRU THE NIGHT COOPERATIVE AND PLEASENT EATING ORDERED OUT FOOD AND DRINKING MILK AND COKES. MEDICATED x3 THIS 12HOURS q4 HOURS WITH DILAUDID 2 MG AND EFFECTIVE FOR LT SIDED FLANK PAIN NO SOB NO RASH LT HIP DRESSING CLEAND DRY AND INTACT IV HYDRATION CONTINUED
[2020-09-25 07:11] LABS: BASOPHILS % (AUTO) 0.3 % (0.0-2.0); EOSINOPHILS % (AUTO) 9.9 % (0.0-6.0); HEMATOCRIT 31 % (39-51); HEMOGLOBIN 10.1 g/dL (13.5-17.5); LYMPHOCYTES # (AUTO) 1.5 /CMM (0.8-4.8); LYMPHOCYTES % (AUTO) 24.1 % (20.0-44.0); MEAN CORPUSCULAR HGB CONC 32 g/dl (31.0-36.0); MEAN CORPUSCULAR VOLUME 84 fL (80-96); MONOCYTES # (AUTO) 0.5 /CMM (0.1-1.30); MONOCYTES % (AUTO) 7.8 % (2.0-12.0); NEUTROPHILS # (AUTO) 3.6 /CMM (1.8-8.9); NEUTROPHILS % (AUTO) 57.9 % (43.0-81.0); PLATELET COUNT (AUTO) 324 /CMM (150-450); RED BLOOD CELL COUNT(AUTO) 3.75 MIL/uL (4.5-6.0); WHITE BLOOD COUNT (AUTO) 6.2 K/uL (4.3-11.0)
--- NOTE | 2020-09-25 07:42 | NUR ---
MS RN OPENING NOTE PATIENT IS IN BED RESTING, PATIENT IS IN NO ACUTE DISTRESS. PATIENT IS ON ROOM AIR, TOLERATING WELL. PATIENT IS QUADRIPLEGIC, ABLE TO REPOSITION HIMSELF, PATIENT HAS SUPRAPUBIC CATHETER IN PLACE. SAFETY PRECAUTIONS ARE ON, BED IS LOCKED, IN THE LOWEST POSITION, WITH SIDE RAILS UP, CALL LIGHT WITHIN REACH.
[2020-09-25 08:00] VITALS: BP 147/85
[2020-09-25 08:10] LABS: CALCIUM, SERUM 8.3 mg/dL (8.5-10.1); MAGNESIUM 1.7 mg/dL (1.8-2.4); PHOSPHORUS 4.1 mg/dL (2.5-4.9); POTASSIUM 4.4 mmol/L (3.5-5.1)
[2020-09-25] MEDS: LORATADINE 10 MG TABLET PO SCH (08:29)
[2020-09-25] MEDS: PANTOPRAZOLE 40 MG TABLET.DR PO SCH (08:29)
[2020-09-25] MEDS: DOCUSATE SODIUM 100 MG CAPSULE PO SCH ×3 (08:29→16:58)
[2020-09-25] MEDS: DOXYCYCLINE HYCLATE (100 MG) 100 MG TABLET PO SCH ×2 (08:29→20:46)
[2020-09-25] MEDS: HEPARIN SODIUM, PORCINE 5000 UNITS/1 ML VIAL SQ SCH (08:33)
[2020-09-25] MEDS: ENSURE ENLIVE 237 ML LIQUID (VANILLA) PO SCH ×2 (08:34→16:58)
[2020-09-25] MEDS: THERAHONEY GEL 1.5 OZ TUBE TP SCH (08:50)
[2020-09-25] MEDS ORDERED: Magnesium 1GM/D5W 100ML PREMIX 100 ML IV SCH (09:30)
[2020-09-25] MEDS ORDERED: SOD FERRIC GLUC 125 MG in IV NS 0.9% 100 ML IV SCH (14:00)
[2020-09-25 16:00] VITALS: BP 141/80
--- NOTE | 2020-09-25 17:19 | NUR ---
MS RN NOTE PATIENTS SUPRAPUBIC CATHETER IS LEAKING, DR. JV NEWMAN SAW THE PATIENT, DR CHRISTINE EVALUATED PATIENTS CATHETER, PER MD, IT IS OK FOR IT TO LEAK, CATHETER IS DRAINING AND WORKING FINE, NO NEED TO REINSERT NEW ONE AT THIS TIME.
--- NOTE | 2020-09-25 18:36 | NUR ---
MS RN CLOSING NOTE PATIENT IS IN BED RESTING, PATIENT IS IN NO ACUTE DISTRESS. PATIENT IS ON ROOM AIR, TOLERATING WELL. PATIENT IS QUADRIPLEGIC, ABLE TO REPOSITION HIMSELF, PATIENT HAS SUPRAPUBIC CATHETER IN PLACE. SAFETY PRECAUTIONS ARE ON, BED IS LOCKED, IN THE LOWEST POSITION, WITH SIDE RAILS UP, ENDORSE PATIENT TO TEACHER BALLET NURSE FOR SOM.
[2020-09-25 20:00] VITALS: BP 144/85
[2020-09-25] MEDS ORDERED: DOCUSATE SODIUM 100 MG CAPSULE PO ONE (21:00)
--- NOTE | 2020-09-25 21:16 | NUR ---
MS/TELE/RN PER PATIENT HE REFUSED THE COLACE EARLIER AND WANTS TO GET IT TONIGHT. ENTERED ORDER FOR COLACE 100 MG PO (THIS IS THE EXISTING ORDER), X 1. MEDICATION GIVEN TO THE PATIENT.
--- NOTE | 2020-09-25 22:00 | NUR ---
MS/TELE/RN OFFERED TO TURN, PATIENT REFUSED. PER PATIENT HE CAN TURN BY HIMSELF.
[2020-09-26] MEDS: HYDROMORPHONE 1 MG/1 ML DISP.SYRIN IV PRN ×6 (03:09→23:27)
[2020-09-26] MEDS: diphenhydrAMINE HCL 50 MG/ML VIAL IV PRN ×3 (03:10→15:57)
--- NOTE | 2020-09-26 06:24 | NUR ---
MS/TELE/RN PATIENT IS AWAKE, ALERT, C/O PAIN, WILLING TO WAIT TILL PAIN MED S DUE, NO DISTRESS NOTED, IVF INFUSING WELL, REFUSED MORNING CARE, REFUSED TURNING, ALL NEEDS ATTENDED AT THIS TIME, WILL CONTINUE TO MONITOR.
[2020-09-26] MEDS: PANTOPRAZOLE 40 MG TABLET.DR PO SCH (07:36)
[2020-09-26] MEDS: ENSURE ENLIVE 237 ML LIQUID (VANILLA) PO SCH ×2 (08:04→16:01)
[2020-09-26] MEDS: LORATADINE 10 MG TABLET PO SCH (08:05)
[2020-09-26] MEDS: DOCUSATE SODIUM 100 MG CAPSULE PO SCH ×2 (08:05→16:01)
[2020-09-26] MEDS: DOXYCYCLINE HYCLATE (100 MG) 100 MG TABLET PO SCH (08:05)
[2020-09-26] MEDS: THERAHONEY GEL 1.5 OZ TUBE TP SCH (08:06)
--- NOTE | 2020-09-26 09:04 | NUR ---
RN NOTES PATIENT COMPLAINING FULL BODY ITCHINESS. PATIENT ASKED FOR PRN BENADRYL. PT GIVEN BENADRYL 50 MG IVP ORDERED, WILL CONTINUE TO MONITOR
[2020-09-26] MEDS: IV 1/2NS 1000 ML 1,000 ML IV PRN ×2 (09:18→23:27)
[2020-09-26] MEDS: Magnesium 1GM/D5W 100ML PREMIX 100 ML IV SCH ×2 (09:18→10:19)
[2020-09-26] MEDS: SOD FERRIC GLUC 125 MG in IV NS 0.9% 100 ML IV SCH (13:58)
--- NOTE | 2020-09-26 16:02 | NUR ---
RN NOTES PATIENT COMPLAINING FULL BODY ITCHINESS. PATIENT ASKED FOR PRN BENADRYL. PT GIVEN BENADRYL 50 MG IVP ORDERED, WILL CONTINUE TO MONITOR
--- NOTE | 2020-09-26 18:45 | NUR ---
MS RN CLOSING NOTES PATIENT IN BED, RESTING, ALERT AND ORIENTED X 4. PATIENT IS BREATHING EVENLY AND NONLABORED, NO SIGNS OF SOB OR RESPIRATORY DISTRESS NOTED. PATIENT IS STABLE ON ROOM AIR. PATIENT'S IV ACCESS DOUGLAS PICC LINE RUNNING 1/2 NS @ 70 ML/HR, PATENT INTACT. PATIENT NOTED WITH SUPRAPUBIC CATHETER, DRAINING CLEAR YELLOW URINE. PATIENT HAD WOUND CARE PERFORMED, DRESSING C/D/I. ALL MEDICATION GIVEN ORDERED. PATIENT COMPLAINED OF SEVERE L HIP PAIN 12/17. ASKED FOR PRN PAIN MEDICATION. WILL GIVE PRN PAIN MEDICATION ORDERED. PATIENT REFUSED Q2HR TURNING DURING SHIFT, EXPLAINED RISK AND BENEFITS. PATIENT STILL REFUSED. SAFETY MEASURES ARE IN PLACE, BED LOCKED AND PLACED IN THE LOWEST POSITION, SIDE RAILS UP X 2, CALL LIGHT IS WITHIN REACH. WILL ENDORSE TO ONCOMING SHIFT
[2020-09-26 20:00] VITALS: BP 140/87
[2020-09-27] MEDS: HYDROMORPHONE 1 MG/1 ML DISP.SYRIN IV PRN ×3 (03:20→13:26)
[2020-09-27 06:59] LABS: BASOPHILS % (AUTO) 0.4 % (0.0-2.0); EOSINOPHILS % (AUTO) 7.6 % (0.0-6.0); HEMATOCRIT 30 % (39-51); HEMOGLOBIN 9.6 g/dL (13.5-17.5); LYMPHOCYTES # (AUTO) 1.6 /CMM (0.8-4.8); LYMPHOCYTES % (AUTO) 21.6 % (20.0-44.0); MEAN CORPUSCULAR HGB CONC 32 g/dl (31.0-36.0); MEAN CORPUSCULAR VOLUME 84 fL (80-96); MONOCYTES # (AUTO) 0.5 /CMM (0.1-1.30); MONOCYTES % (AUTO) 7.1 % (2.0-12.0); NEUTROPHILS # (AUTO) 4.7 /CMM (1.8-8.9); NEUTROPHILS % (AUTO) 63.3 % (43.0-81.0); PLATELET COUNT (AUTO) 309 /CMM (150-450); WHITE BLOOD COUNT (AUTO) 7.4 K/uL (4.3-11.0)
--- NOTE | 2020-09-27 07:01 | NUR ---
MS RN OPENING NOTES PATIENT IN BED, RESTING, ALERT AND ORIENTED X 4. PATIENT IS BREATHING EVENLY AND NONLABORED, NO SIGNS OF SOB OR RESPIRATORY DISTRESS NOTED. PATIENT IS STABLE ON ROOM AIR. PATIENT'S IV ACCESS DOUGLAS PICC LINE RUNNING 1/2 NS @ 70 ML/HR, PATENT INTACT. PATIENT NOTED WITH SUPRAPUBIC CATHETER, DRAINING CLEAR YELLOW URINE. PATIENT HAD WOUND CARE PERFORMED, DRESSING C/D/I. ALL MEDICATION GIVEN ORDERED. PATIENT COMPLAINED OF SEVERE L HIP PAIN 12/17. ASKED FOR PRN PAIN MEDICATION. WILL GIVE PRN PAIN MEDICATION ORDERED. PATIENT REFUSED Q2HR TURNING DURING SHIFT, EXPLAINED RISK AND BENEFITS. PATIENT STILL REFUSED. SAFETY MEASURES ARE IN PLACE, BED LOCKED AND PLACED IN THE LOWEST POSITION, SIDE RAILS UP X 2, CALL LIGHT IS WITHIN REACH AND ANSWERED PROPMTLY
[2020-09-27] MEDS: PANTOPRAZOLE 40 MG TABLET.DR PO SCH (07:35)
[2020-09-27 07:43] LABS: ALBUMIN 2.5 g/dL (3.4-5.0); BILIRUBIN,TOTAL 0.2 mg/dL (0.2-1.0); CALCIUM, SERUM 8.3 mg/dL (8.5-10.1); CREATININE 2.1 mg/dL (0.6-1.3); POTASSIUM 4.6 mmol/L (3.5-5.1); TOTAL PROTEIN, SERUM 8.1 g/dL (6.4-8.2)
[2020-09-27 08:00] VITALS: BP 171/92
[2020-09-27] MEDS: LORATADINE 10 MG TABLET PO SCH (08:30)
[2020-09-27] MEDS: ENSURE ENLIVE 237 ML LIQUID (VANILLA) PO SCH ×2 (08:30→16:32)
[2020-09-27] MEDS: DOCUSATE SODIUM 100 MG CAPSULE PO SCH ×2 (08:30→16:31)
[2020-09-27] MEDS: THERAHONEY GEL 1.5 OZ TUBE TP SCH (08:30)
[2020-09-27] MEDS ORDERED: COLL30OI TP (13:12)
[2020-09-27] MEDS: SOD FERRIC GLUC 125 MG in IV NS 0.9% 100 ML IV SCH (13:26)
[2020-09-27 16:20] LABS: BASOPHILS # (AUTO) 0.1 /CMM (0.0-0.2); BASOPHILS % (AUTO) 0.8 % (0.0-2.0); EOSINOPHILS % (AUTO) 7.3 % (0.0-6.0); HEMATOCRIT 31 % (39-51); HEMOGLOBIN 9.7 g/dL (13.5-17.5); LYMPHOCYTES # (AUTO) 1.6 /CMM (0.8-4.8); LYMPHOCYTES % (AUTO) 21.1 % (20.0-44.0); MEAN CORPUSCULAR HGB CONC 32 g/dl (31.0-36.0); MEAN CORPUSCULAR VOLUME 83 fL (80-96); MONOCYTES # (AUTO) 0.5 /CMM (0.1-1.30); NEUTROPHILS # (AUTO) 4.9 /CMM (1.8-8.9); NEUTROPHILS % (AUTO) 63.8 % (43.0-81.0); PLATELET COUNT (AUTO) 346 /CMM (150-450); RED BLOOD CELL COUNT(AUTO) 3.67 MIL/uL (4.5-6.0); WHITE BLOOD COUNT (AUTO) 7.6 K/uL (4.3-11.0)
[2020-09-27] MEDS ORDERED: APIXABAN 2.5 MG TABLET PO SCH (17:22)
== END 2020-09-27 18:30 | disposition home health service (06) | DRG 579 ==
LOC: ER 16:54 → MED 20:03
PROVIDERS: ADMIT Internal Medicine; ATTEND Nurse Practitioner Acute Care
PROC: 0KBP0ZZ Excision of Left Hip Muscle, Open Approach (ICD-10-PCS; principal; 2020-09-20)
DX: L89.224 Pressure ulcer of left hip, stage 4 (principal); E43 Unspecified severe protein-calorie malnutrition; N17.0 Acute kidney failure with tubular necrosis; D68.59 Other primary thrombophilia; E87.1 Hypo-osmolality and hyponatremia; G82.20 Paraplegia, unspecified; N13.6 Pyonephrosis; N18.4 Chronic kidney disease, stage 4 (severe); L03.113 Cellulitis of right upper limb; M46.28 Osteomyelitis of vertebra, sacral and sacrococcygeal region; L89.324 Pressure ulcer of left buttock, stage 4; M16.12 Unilateral primary osteoarthritis, left hip; I12.9 Hypertensive chronic kidney disease with stage 1 through stage 4 chronic kidney disease, or unspecified chronic kidney disease; Z20.822 Contact with and (suspected) exposure to COVID-19; E78.5 Hyperlipidemia, unspecified; E83.42 Hypomagnesemia; N31.9 Neuromuscular dysfunction of bladder, unspecified; Z86.718 Personal history of other venous thrombosis and embolism; Z87.440 Personal history of urinary (tract) infections; Z87.442 Personal history of urinary calculi; Z88.0 Allergy status to penicillin; Z93.3 Colostomy status; Z99.3 Dependence on wheelchair; V89.2XXS Person injured in unspecified motor-vehicle accident, traffic, sequela; Z87.891 Personal history of nicotine dependence; Z68.28 Body mass index [BMI] 28.0-28.9, adult; K59.09 Other constipation; D63.1 Anemia in chronic kidney disease; R59.0 Localized enlarged lymph nodes; L89.616 Pressure-induced deep tissue damage of right heel; R23.4 Changes in skin texture; M24.574 Contracture, right foot; M24.575 Contracture, left foot; G89.4 Chronic pain syndrome; E66.9 Obesity, unspecified; S24.102S Unspecified injury at T2-T6 level of thoracic spinal cord, sequela; Z93.59 Other cystostomy status; L90.5 Scar conditions and fibrosis of skin
CPT/HCPCS: 36415; 71045-TC; 73502; 73564-TC; 76770-TC; 80048-TC; 80053-TC; 80061-TC; 80076-TC; 80202-TC; 81001; 82550-TC; 82570-TC; 82728-TC; 82784; 83540-TC; 83605-TC; 83615-TC; 83735-TC; 83970; 84100-TC; 84153-TC; 84155; 84155-TC; 84165; 84300-TC; 84443-TC; 84484-TC; 85025-TC; 85652-TC; 85730-TC; 86140-TC; 86334; 87040-TC; 87070-TC; 87081-TC; 87086-TC; 87186-TC; A6253; A6403; C9803; G0378; J1170; J1200; J1644; J2405; J2916; J3370; J3475; J3490; J7030; J7060

== ENCOUNTER 2020-12-04 12:18 | Inpatient (IN) | payer MEDICARE ==
[~2020-12-04] VITALS: Ht 190.5 cm; Wt 104.3 kg
[~2020-12-04 12:18] MED LIST changes: +COLL30OI TP
--- NOTE | 2020-12-04 12:30 | NUR ---
ADMISSION NOTE PT FOUND IN ROOM SITTING ON ELECTRIC CHAIR DISPLAYING NO S/S OF DISTRESS, PT ENDORSES NO PAIN AT THIS TIME AND IS BREATHING EVEN AND UNLABORED. PT TO BE DIRECT ADMIT. PT HAD MID LINE INSERTED BY . PT HAS SUPRAPUBIC CATHETER OF WHICH RESERVOIR NEEDS TO BE REPLACED. SEE ASSESSMENT FOR CURRENT VS. PT WILL BE TRANSFERRED TO HOSPITAL BED WHEN SPECIALTY MATTRESS ARRIVES. ADMISSION WILL START RAUL.
[2020-12-04] MEDS ORDERED: ACETAMINOPHEN 325 MG TABLET PO PRN (13:30)
[2020-12-04] MEDS ORDERED: CEFEPIME 2 GM in IV D5W 100 ML IV SCH (13:30)
[2020-12-04] MEDS ORDERED: ONDANSETRON HCL/PF 4 MG/2 ML VIAL IVP PRN (13:30)
[2020-12-04] MEDS ORDERED: Z GUARD REMEDY 2 OZ OINT TP PRN (13:30)
[2020-12-04 14:30] LABS: BASOPHILS # (AUTO) 0.2 K/uL (0.0-0.2); BASOPHILS % (AUTO) 1.1 % (0.0-2.0); EOSINOPHILS % (AUTO) 1.6 % (0.0-6.0); HEMATOCRIT 29 % (39-51); HEMOGLOBIN 9.3 g/dL (13.5-17.5); LYMPHOCYTES # (AUTO) 1.3 K/uL (0.8-4.8); LYMPHOCYTES % (AUTO) 8.4 % (20.0-44.0); MEAN CORPUSCULAR HGB CONC 32 g/dl (31.0-36.0); MEAN CORPUSCULAR VOLUME 82 fL (80-96); MONOCYTES # (AUTO) 1.2 K/uL (0.1-1.30); MONOCYTES % (AUTO) 7.7 % (2.0-12.0); NEUTROPHILS # (AUTO) 12.7 K/uL (1.8-8.9); NEUTROPHILS % (AUTO) 81.2 % (43.0-81.0); PLATELET COUNT (AUTO) 610 K/uL (150-450); WHITE BLOOD COUNT (AUTO) 15.7 K/uL (4.3-11.0)
[2020-12-04 14:53] LABS: ALBUMIN 1.9 g/dL (3.4-5.0); BILIRUBIN,TOTAL 0.3 mg/dL (0.2-1.0); CALCIUM, SERUM 8.4 mg/dL (8.5-10.1); CREATININE 2.5 mg/dL (0.6-1.3); MAGNESIUM 1.8 mg/dL (1.8-2.4); PHOSPHORUS 3.3 mg/dL (2.5-4.9); POTASSIUM 3.8 mmol/L (3.5-5.1); TOTAL PROTEIN, SERUM 8.4 g/dL (6.4-8.2)
[2020-12-04 15:06] LABS: THYROID STIMULATING HORMONE 2.411 uIU/mL (0.358-3.74)
[2020-12-04] MEDS ORDERED: PROP80CA51 PO (15:50)
[2020-12-04 16:00] VITALS: BP 119/66
[2020-12-04] MEDS: HYDROMORPHONE INJ 2 MG/ML DISP.SYRIN IV PRN ×2 (16:00→23:09)
[2020-12-04] MEDS ORDERED: LINEZOLID RTU BAG 600 MG in PREMIX 1 EA IV SCH (16:00)
[2020-12-04] MEDS: ENOXAPARIN SODIUM 40 MG/0.4 ML DISP.SYRIN SQ SCH (16:28)
[2020-12-04] MEDS: AZTREONAM 1 G in IV NS 0.9% 100 ML IV SCH ×2 (16:28→23:01)
[2020-12-04] MEDS ORDERED: AZTREONAM 2 G in IV NS 0.9% 100 ML IV SCH (17:00)
[2020-12-04 17:05] LABS: BILIRUBIN,URINE NEGATIVE (NEGATIVE); COLOR,URINE YELLOW (YELLOW); LEUKOCYTE ESTERASE ,URINE LARGE (NEGATIVE); NITRITE, URINE POSITIVE (NEGATIVE); PROTEIN,URINE 30 mg/dl (NEGATIVE); UGLUCOSE NEGATIVE (NEGATIVE); UROBILINOGEN,URINE 0.2 EU/dL (0.2)
[2020-12-04 17:13] LABS: BACTERIA,URINE 3+ /HPF (None Seen); SQUAMOUS EPITHELIAL CELL,UR Few /HPF (None Seen); WBC,URINE TOO NUMEROUS TO COUN /HPF (0-3)
[2020-12-04] MEDS: LINEZOLID RTU BAG 600 MG in PREMIX 1 EA IV SCH (17:24)
[2020-12-04] MEDS: PROPRANOLOL LA 60 MG CAP.SA.24H PO SCH (17:25)
--- NOTE | 2020-12-04 19:15 | NUR ---
RN NOTE PT FOUND IN SEMI FOWLERS POSITION DISPLAYING NO S/S OF DISTRESS, PT ENDORSES NO PAIN AT THIS TIME AND IS BREATHING EVEN AND UNLABORED. PT HAD MID LINE PATIENT AND INTACT. PT SUPRAPUBIC CATH BAG BELOW PATIENT DRAINING BY GRAVITY. HOSPITAL SAFETY IN PLACE, BED LOCKED AND IN LOWEST POSITION, SIDE RAILS UPX3, CALL LIGHT WITHIN REACH, PT INSTRUCTED TO CALL FOR ASSISTANCE. ALL OTHER NEEDS ARE MET. REPORT GIVEN TO MORPHOLOGY TEACHER RN. SBAR GIVEN, ALL QUESTIONS ANSWERED.
--- NOTE | 2020-12-04 19:42 | NUR ---
RN OPENING NOTE RECEIVED PT AWAKE IN BED. A/O X4. PT IS STABLE ON ROOM AIR. NO SOB OR S/S OF RESPIRATORY DISTRESS NOTED. PT HAS NO C/O PAIN OR DISCOMFORT AT THIS TIME. IV ACCESS IN [place] MIDLINE #18, INTACT AND PATENT. PT NOTED WITH SUPRAPUBIC CATHETER DRAINING CLEAR YELLOW URINE. SAFETY PRECAUTIONS MAINTAINED. BED IN LOWEST LOCKED POSITION, HOB ELEVATED, SIDE RAILS UP X2. BED ALARM ON. CALL LIGHT AND TABLE WITHIN REACH. WILL CONTINUE WITH PLAN OF CARE.
[2020-12-04 20:00] VITALS: BP 117/62
--- NOTE | 2020-12-04 23:09 | NUR ---
RN PAIN PT C/O ACHING PAIN IN SACRAL AREA, RATED 9/10 ON PAIN SCALE. VSS. PER PT REQUEST, ADMINISTERED DILAUDID 2MG IV Q3H PRN FOR PAIN. WILL REASSESS IN 30 MINS AND CONTINUE TO MONITOR PT.
[2020-12-05 04:00] VITALS: BP 133/61
[2020-12-05] MEDS: LINEZOLID RTU BAG 600 MG in PREMIX 1 EA IV SCH ×2 (04:02→16:46)
[2020-12-05] MEDS: HYDROMORPHONE INJ 2 MG/ML DISP.SYRIN IV PRN ×4 (04:27→21:23)
--- NOTE | 2020-12-05 04:27 | NUR ---
RN PAIN PT C/O ACHING PAIN IN SACRAL AREA, RATED 10/10 ON PAIN SCALE. VSS. PER PT REQUEST, ADMINISTERED DILAUDID 2MG IV Q3H PRN FOR PAIN. WILL REASSESS IN 30 MINS AND CONTINUE TO MONITOR PT.
--- NOTE | 2020-12-05 06:18 | NUR ---
RN CLOSING NOTE PT IS AWAKE IN BED. A/O X4. PT IS STABLE ON ROOM AIR. NO SOB OR S/S OF RESPIRATORY DISTRESS NOTED. PT HAS NO C/O PAIN OR DISCOMFORT AT THIS TIME. IV ACCESS IS INTACT, PATENT, AND FLUSHING WELL. PT NOTED WITH SUPRAPUBIC CATHETER DRAINING CLEAR YELLOW URINE. ALL NEEDS HAVE BEEN MET. PAIN MANAGEMENT AND WOUND CARE ADMINISTERED PER ORDER. SAFETY PRECAUTIONS MAINTAINED AT ALL TIMES. BED IN LOWEST LOCKED POSITION, HOB ELEVATED, SIDE RAILS UP X2. BED ALARM ON. CALL LIGHT AND TABLE WITHIN REACH. WILL ENDORSE TO ONCOMING NURSE FOR SOM.
[2020-12-05 07:18] LABS: BASOPHILS # (AUTO) 0.1 K/uL (0.0-0.2); BASOPHILS % (AUTO) 0.9 % (0.0-2.0); HEMATOCRIT 28 % (39-51); HEMOGLOBIN 8.8 g/dL (13.5-17.5); LYMPHOCYTES # (AUTO) 1.7 K/uL (0.8-4.8); LYMPHOCYTES % (AUTO) 11.3 % (20.0-44.0); MEAN CORPUSCULAR HGB CONC 32 g/dl (31.0-36.0); MEAN CORPUSCULAR VOLUME 82 fL (80-96); MONOCYTES % (AUTO) 6.5 % (2.0-12.0); NEUTROPHILS # (AUTO) 11.8 K/uL (1.8-8.9); NEUTROPHILS % (AUTO) 79.3 % (43.0-81.0); PLATELET COUNT (AUTO) 578 K/uL (150-450); RED BLOOD CELL COUNT(AUTO) 3.38 MIL/uL (4.5-6.0); WHITE BLOOD COUNT (AUTO) 14.8 K/uL (4.3-11.0)
[2020-12-05 07:33] LABS: CALCIUM, SERUM 8.6 mg/dL (8.5-10.1); CREATININE 2.5 mg/dL (0.6-1.3); MAGNESIUM 1.8 mg/dL (1.8-2.4); POTASSIUM 4.1 mmol/L (3.5-5.1)
[2020-12-05 08:00] VITALS: BP 133/61
--- NOTE | 2020-12-05 08:00 | NUR ---
RN NOTE RECEIVED REPORT FROM MARISA FLORES.
[2020-12-05] MEDS: PROPRANOLOL LA 60 MG CAP.SA.24H PO SCH (08:44)
[2020-12-05] MEDS: AZTREONAM 1 G in IV NS 0.9% 100 ML IV SCH ×2 (09:52→18:55)
--- NOTE | 2020-12-05 14:00 | NUR ---
RN NOTE FEMORAL TWO LUMEN PICC LINE INSERTED.
[2020-12-05 16:00] VITALS: BP 119/69
--- NOTE | 2020-12-05 16:30 | NUR ---
RN NOTE PATIENT ALERT AND ORIENTED X4, PATIENT REFUSED TO BE CHANGE AND REPOSITIONED, PATIENT REFUSED WOUND TREATMENT ORDERED.
--- NOTE | 2020-12-05 18:45 | NUR ---
RN NOTE PATIENT OBSERVED ON BED, AWAKE ALERT AND ORIENTED X4, ABLE TO VERBALIZE NEEDS, ON SUPRAPUBIC CATHETER DRAINING WELL VIA GRAVITY NO HEMATURIA NOTED, WITH RIGHT FEMORAL 2 LUMEN PICC PATENT INFUSING WELL, PAIN MEDICATION ADMINISTERED ORDERED, AIR FLOW MATTRESS TO BE INSTALLED PER PATIENT REQUEST WHEN HE GET TO TRANSFERRED TO MS UNIT TONIGHT, WILL CONTINUE TO MONITOR, SAFETY MEASURES OBSERVED, NEEDS MET AND ANTICIPATED, BED WHEELS LOCK, CALL LIGHT WITHIN REACH, WILL ENDORSE TO NOC SHIFT.
--- NOTE | 2020-12-05 19:00 | NUR ---
RN NOTE RECEIVED PATINET IN BED RESTING ALERT ORIENTED X4 VERBALLY RESPONSIVE ON ROOM AIR O2:96% IV SITE IS ON RIGHT FEMORAL PICC LINE INTACT PATENT,SUPRAPUBIC CATH IN PLACE URINE DRAINING YELLOW AND CLEAR BY GRAVITY,MULTIPLIES PRESSURE ULCER,SAFETY MEASURE IMPLEMENT CALL LIGHT WITHIN REACH,BED IN LOW POSITION AND LOCKED CONTINUE TO MONITOR.
--- NOTE | 2020-12-05 19:45 | NUR ---
RN NOTE REPORT GIVEN TO BJ FLORES AT [facility] IN ROOM 329 PATIENT TRANSFER TO [facility] IN STABLE CONDITION.
--- NOTE | 2020-12-05 19:50 | NUR ---
MS ADDICTION PSYCHIATRIST NOTE RECEIVED PATIENT AT THIS TIME. NO S/S OF APPARENT DISTRESS TOLERATING ROOM AIR. NO C/O PAIN AT THIS TIME. A/OX4. PATIENT NOTED TO HAVE SUPRAPUBIC CATHETER AND RIGHT FEMORAL PICC LINE WHICH IS INTACT AND PATENT-- RUNNING AZACTAM 100 MLS/HR. MULTIPLE WOUNDS NOTED-- WILL TAKE PICTURES. V/S FOLLOWS: BP- 127/65, HR- 92, RR- 18 BPM, T- 99.4. WILL MONITOR PATIENT.
--- NOTE | 2020-12-05 21:23 | NUR ---
ms rn note patient asking for pain medication before dressing change. given dilaudid 2mg at this time. will reassess.
[2020-12-05] MEDS: ENOXAPARIN SODIUM 40 MG/0.4 ML DISP.SYRIN SQ SCH (21:28)
[2020-12-05 22:30] VITALS: BP 127/65
[2020-12-06] MEDS: AZTREONAM 1 G in IV NS 0.9% 100 ML IV SCH ×4 (00:16→23:54)
[2020-12-06] MEDS: HYDROMORPHONE INJ 2 MG/ML DISP.SYRIN IV PRN ×5 (03:32→20:53)
--- NOTE | 2020-12-06 03:32 | NUR ---
ms rn note patient c/o 11/16 pain. given morphine 2mg at this time will reassess.
[2020-12-06] MEDS: LINEZOLID RTU BAG 600 MG in PREMIX 1 EA IV SCH ×2 (04:39→16:27)
--- NOTE | 2020-12-06 07:29 | NUR ---
telegraph dispatcher notes no significant change since last shift. report given to thanh for cont. of care.
[2020-12-06 07:35] LABS: BASOPHILS % (AUTO) 0.4 % (0.0-2.0); EOSINOPHILS % (AUTO) 2.2 % (0.0-6.0); HEMATOCRIT 27 % (39-51); HEMOGLOBIN 8.5 g/dL (13.5-17.5); LYMPHOCYTES # (AUTO) 1.4 K/uL (0.8-4.8); LYMPHOCYTES % (AUTO) 10.3 % (20.0-44.0); MEAN CORPUSCULAR HGB CONC 32 g/dl (31.0-36.0); MEAN CORPUSCULAR VOLUME 82 fL (80-96); MONOCYTES # (AUTO) 0.7 K/uL (0.1-1.30); MONOCYTES % (AUTO) 5.5 % (2.0-12.0); NEUTROPHILS % (AUTO) 81.6 % (43.0-81.0); PLATELET COUNT (AUTO) 569 K/uL (150-450); RED BLOOD CELL COUNT(AUTO) 3.21 MIL/uL (4.5-6.0); WHITE BLOOD COUNT (AUTO) 13.4 K/uL (4.3-11.0)
--- NOTE | 2020-12-06 07:46 | NUR ---
RN OPENING NOTE PT AWAKE IN BED RESTING. ON RA WITH NO SOB OR RESPIRATORY DISTRESS PRESENT. A/O X4 AND THAI SPEAKING. NO GLASS BEVELLER PRESENT. NO EDEMA PRESENT. SUPRAPUBIC CATH PRESENT AND DRAINING WITH CLEAR YELLOW FLUID. BEDBOUND. WHEELCHAIR AT BEDSIDE. SKIN PROBLEMS PRESENT, WOUND PHOTOS IN CHART, WOUND CARE ORDERED AND TO BE GIVEN. PICC LINE PRESENT ON R FEMORAL. LABS AND ORDERS REVIEWED. SAFETY MEASURES IN PLACE. SIDE RAILS RAISED. BED LOWERED. CALL LIGHT WITHIN REACH. WILL CONTINUE TO MONITOR.
[2020-12-06 07:47] LABS: ALBUMIN 1.5 g/dL (3.4-5.0); BILIRUBIN,TOTAL 0.2 mg/dL (0.2-1.0); CALCIUM, SERUM 8.3 mg/dL (8.5-10.1); CREATININE 2.5 mg/dL (0.6-1.3); MAGNESIUM 1.9 mg/dL (1.8-2.4); PHOSPHORUS 3.1 mg/dL (2.5-4.9); POTASSIUM 3.6 mmol/L (3.5-5.1); TOTAL PROTEIN, SERUM 7.6 g/dL (6.4-8.2)
[2020-12-06] MEDS ORDERED: IV NS 0.9% 500 ML IV ONE (09:00)
[2020-12-06] MEDS: PROPRANOLOL LA 60 MG CAP.SA.24H PO SCH (10:15)
--- NOTE | 2020-12-06 11:02 | NUR ---
WOUND CARE CONSULT: PT PRESENTS WITH MULTIPLE WOUNDS, PRESENT ON ADMISSION. DR JAVED AND DR GONZALEZ NOTIFIED OF SURGICAL AND DPM CONSULT REQUESTS. PT RESTING AT THIS TIME ON HIS RT SIDE ON FIRST STEP CIRRUS LOW AIRLOSS MATTRESS. RECOMMENDATIONS MADE FOR SKIN PROTECTION. DISCUSSED WITH NURSING STAFF. MD IN AGREEMENT WITH PLAN OF CARE.
[2020-12-06 12:09] VITALS: BP 120/80
[2020-12-06] MEDS ORDERED: SILVER NITRATE APPLICATOR 1 EA BOX TP STA (12:59)
[2020-12-06] MEDS ORDERED: LIDOCAINE 1%-EPI 1:100,000 50 ML VIAL IJ STA (12:59)
[2020-12-06] MEDS ORDERED: DAKINS QUARTER STRENGTH (0.125%) 480 ML BOTTLE TOP STA (13:31)
[2020-12-06] MEDS: IV LR 1000 ML 1,000 ML IV PRN (15:39)
[2020-12-06 16:00] VITALS: BP 127/73
[2020-12-06] MEDS: DAKINS QUARTER STRENGTH (0.125%) 480 ML BOTTLE TOP SCH (16:54)
--- NOTE | 2020-12-06 18:41 | NUR ---
RN CLOSING NOTE PT AWAKE IN BED RESTING. ON RA WITH NO SOB OR RESPIRATORY DISTRESS PRESENT. A/O X4 AND YI SPEAKING. NO PLISSE MACHINE OPERATOR PRESENT. NO EDEMA PRESENT. SUPRAPUBIC CATH PRESENT AND DRAINING WITH CLEAR YELLOW FLUID. BEDBOUND. WHEELCHAIR AT BEDSIDE. SKIN PROBLEMS PRESENT, WOUND PHOTOS IN CHART, WOUND CARE ORDERED AND GIVEN. PICC LINE PRESENT ON R FEMORAL. LR RUNNING AT 100 ML/HR. ROUTINE MEDS GIVEN. LABS AND ORDERS REVIEWED. SAFETY MEASURES IN PLACE. SIDE RAILS RAISED. BED LOWERED. CALL LIGHT WITHIN REACH. REPORT TO BE GIVEN TO NIGHT NURSE FOR SOM.
[2020-12-06 20:00] VITALS: BP 104/60
[2020-12-06] MEDS: ENOXAPARIN SODIUM 40 MG/0.4 ML DISP.SYRIN SQ SCH (20:33)
--- NOTE | 2020-12-06 20:47 | NUR ---
RN OPENING NOTES PT RESTING IN BED, EASILY AROUSABLE TO STIMULI, A/O X4, ABLE TO VERBALIZE ALL NEEDS. NO C/O PAIN OR DISCOMFORT AT THIS TIME. BREATHING EVEN AND UNLABORED, ON ROOM AIR. R-FEMORAL PICC LINE IN PLACE WITH LR RUNNING AT 100ML/HR. SUPRAPUBIC CATHETER PATENT/INTACT, DRAINING CLEAR YELLOW URINE. REPOSITIONED PT FOR COMFORT. SAFETY MEASURES IN PLACE, BED IN LOWEST LOCKED POSITION, S/R UP X2, CALL LIGHT WITHIN REACH. WILL CONTINUE TO MONITOR.
[2020-12-07] MEDS: HYDROMORPHONE INJ 2 MG/ML DISP.SYRIN IV PRN ×6 (00:55→21:25)
[2020-12-07] MEDS: LINEZOLID RTU BAG 600 MG in PREMIX 1 EA IV SCH ×2 (04:07→18:24)
[2020-12-07 06:44] LABS: BASOPHILS # (AUTO) 0.1 K/uL (0.0-0.2); BASOPHILS % (AUTO) 0.5 % (0.0-2.0); EOSINOPHILS % (AUTO) 2.2 % (0.0-6.0); HEMATOCRIT 25 % (39-51); HEMOGLOBIN 7.9 g/dL (13.5-17.5); LYMPHOCYTES # (AUTO) 1.5 K/uL (0.8-4.8); LYMPHOCYTES % (AUTO) 12.9 % (20.0-44.0); MEAN CORPUSCULAR HGB CONC 32 g/dl (31.0-36.0); MEAN CORPUSCULAR VOLUME 82 fL (80-96); MONOCYTES # (AUTO) 0.8 K/uL (0.1-1.30); MONOCYTES % (AUTO) 6.6 % (2.0-12.0); NEUTROPHILS # (AUTO) 9.3 K/uL (1.8-8.9); NEUTROPHILS % (AUTO) 77.8 % (43.0-81.0); PLATELET COUNT (AUTO) 528 K/uL (150-450); RED BLOOD CELL COUNT(AUTO) 3.01 MIL/uL (4.5-6.0)
[2020-12-07 07:10] LABS: CALCIUM, SERUM 7.8 mg/dL (8.5-10.1); CREATININE 2.4 mg/dL (0.6-1.3); MAGNESIUM 1.6 mg/dL (1.8-2.4); PHOSPHORUS 3.1 mg/dL (2.5-4.9)
--- NOTE | 2020-12-07 07:15 | NUR ---
RN CLOSING NOTES PT RESTING IN BED, WATCHING MOVIE ON HIS TABLET. A/OX4. DENIES ANY PAIN OR DISCOMFORT AT THIS TIME. RESPIRATIONS EVEN AND UNLABORED. IV SITE ON R-FEMORAL PICC LINE INTACT, INFUSING LR @100 ML/HR, WITH DRESSING C/D/I. SUPRAPUBIC CATHETER PATENT/INTACT, DRAINING CLEAR YELLOW URINE, TOTAL OUTPUT OF 2200 THIS SHIFT. PT IN NO ACUTE DISTRESS. REPOSITIONED Q2H AND NEEDED. SAFETY MEASURES MAINTAINED, BED IN LOWEST LOCKED POSITION, S/R UP X2, CALL LIGHT AND TABLE WITHIN EASY REACH. WILL ENDORSE TO NEXT SHIFT NURSE.
[2020-12-07 08:00] VITALS: BP 126/67
[2020-12-07] MEDS: AZTREONAM 1 G in IV NS 0.9% 100 ML IV SCH ×3 (08:49→23:17)
[2020-12-07] MEDS: PROPRANOLOL LA 60 MG CAP.SA.24H PO SCH (09:17)
[2020-12-07] MEDS: DAKINS QUARTER STRENGTH (0.125%) 480 ML BOTTLE TOP SCH (09:21)
[2020-12-07] MEDS ORDERED: Magnesium 1GM/D5W 100ML PREMIX 100 ML IV SCH (09:30)
[2020-12-07 10:07] LABS: *SPE A/G RATIO 0.4 (0.7-1.7); *SPE ALPHA-1-GLOBULIN 0.4 g/dL (0.0-0.4); *SPE ALPHA-2-GLOBULIN 1.1 g/dL (0.4-1.0); *SPE BETA GLOBULIN 0.9 g/dL (0.7-1.3); *SPE M-SPIKE Not Observed g/dL (Not Observed)
[2020-12-07] MEDS: IV LR 1000 ML 1,000 ML IV PRN (14:55)
[2020-12-07 16:00] VITALS: BP 129/62
--- NOTE | 2020-12-07 18:00 | NUR ---
MEDICATED X 3 FOR PAIN WITH DILAUDID.MG IV REPLACEMENT DONE.
--- NOTE | 2020-12-07 19:10 | NUR ---
RN OPENING NOTES PT IN BED, WATCHING MOVIE ON HIS TABLET. A/O X4, ABLE TO VERBALIZE ALL NEEDS. NO C/O PAIN OR DISCOMFORT AT THIS TIME. BREATHING EVEN AND UNLABORED, ON ROOM AIR. R-FEMORAL PICC LINE IN PLACE WITH LR RUNNING AT 100ML/HR. SUPRAPUBIC CATHETER PATENT/INTACT, DRAINING CLEAR YELLOW URINE. PT IN NO ACUTE DISTRESS. SAFETY MEASURES IN PLACE, BED IN LOWEST LOCKED POSITION, S/R UP X2, CALL LIGHT WITHIN REACH. WILL CONTINUE TO MONITOR.
[2020-12-07 20:00] VITALS: BP 127/71
[2020-12-07] MEDS: ENOXAPARIN SODIUM 40 MG/0.4 ML DISP.SYRIN SQ SCH (21:23)
[2020-12-08] MEDS: HYDROMORPHONE INJ 2 MG/ML DISP.SYRIN IV PRN ×6 (00:40→21:56)
[2020-12-08] MEDS: LINEZOLID RTU BAG 600 MG in PREMIX 1 EA IV SCH (04:26)
[2020-12-08 06:41] LABS: BASOPHILS # (AUTO) 0.1 K/uL (0.0-0.2); BASOPHILS % (AUTO) 0.8 % (0.0-2.0); EOSINOPHILS % (AUTO) 2.7 % (0.0-6.0); HEMATOCRIT 23 % (39-51); HEMOGLOBIN 7.3 g/dL (13.5-17.5); LYMPHOCYTES # (AUTO) 1.2 K/uL (0.8-4.8); LYMPHOCYTES % (AUTO) 12.5 % (20.0-44.0); MEAN CORPUSCULAR HGB CONC 31 g/dl (31.0-36.0); MEAN CORPUSCULAR VOLUME 85 fL (80-96); MONOCYTES # (AUTO) 0.7 K/uL (0.1-1.30); MONOCYTES % (AUTO) 7.1 % (2.0-12.0); NEUTROPHILS # (AUTO) 7.4 K/uL (1.8-8.9); NEUTROPHILS % (AUTO) 76.9 % (43.0-81.0); PLATELET COUNT (AUTO) 502 K/uL (150-450); RED BLOOD CELL COUNT(AUTO) 2.74 MIL/uL (4.5-6.0); WHITE BLOOD COUNT (AUTO) 9.6 K/uL (4.3-11.0)
[2020-12-08] MEDS: IV LR 1000 ML 1,000 ML IV PRN (06:45)
--- NOTE | 2020-12-08 07:30 | NUR ---
MS RN CLOSING NOTES PT AWAKE, A/OX4, DENIES ANY PAIN OR DISCOMFORT. NO SOB. IV SITE R-FEMORAL PICC LINE INTACT, PATENT, AND FLUSHES WELL, WITH DRESSING C/D/I. SUPRAPUBIC CATH IN PLACE, DRAINING CLEAR YELLOW URINE, TOTAL OUTPUT 1100CC. KEPT PT CLEAN AND DRY, REPOSITIONED Q2H AND NEEDED. PT SLEEPS INTERMITTENTLY DURING THE NIGHT. NO ACUTE DISTRESS NOTED. ENDORSED TO NEXT SHIFT NURSE.
[2020-12-08 08:00] VITALS: BP 124/65
[2020-12-08] MEDS: AZTREONAM 1 G in IV NS 0.9% 100 ML IV SCH ×3 (08:52→23:30)
[2020-12-08] MEDS: PROPRANOLOL LA 60 MG CAP.SA.24H PO SCH (08:52)
[2020-12-08 09:29] LABS: CALCIUM, SERUM 7.1 mg/dL (8.5-10.1); CREATININE 1.5 mg/dL (0.6-1.3); PHOSPHORUS 2.2 mg/dL (2.5-4.9); POTASSIUM 4.2 mmol/L (3.5-5.1)
[2020-12-08] MEDS: DAKINS QUARTER STRENGTH (0.125%) 480 ML BOTTLE TOP SCH (11:29)
[2020-12-08] MEDS ORDERED: K PHOS NEUTRAL 250 MG TABLET PO ONE (15:30)
[2020-12-08 16:21] VITALS: BP 125/72
--- NOTE | 2020-12-08 17:00 | NUR ---
GIVEN NEUTRA PHOS FOR LOW PHOSPHOROUS.
--- NOTE | 2020-12-08 17:45 | NUR ---
RN TEXTED DR[facility] TEXTING THAT URINE CULTURE SHOWS PT. IS MULTI DRUG RESISTANT,ON URINE CULTURE. RESPONDED AND WILL CONTACT PHARM.
--- NOTE | 2020-12-08 18:00 | NUR ---
MEDICATED X 3 FOR SACRAL PAIN WITH DILAUDID.
[2020-12-08 20:00] VITALS: BP 137/71
--- NOTE | 2020-12-08 20:38 | NUR ---
RN NOTES PT AWAKE, A/OX4, DENIES ANY PAIN OR DISCOMFORT. NO SOB. IV SITE R-FEMORAL PICC LINE INTACT, PATENT, AND FLUSHES WELL, WITH DRESSING C/D/I. SUPRAPUBIC CATH IN PLACE, DRAINING CLEAR YELLOW URINE. KEPT PT CLEAN AND DRY WILL CONTINUE TO MONITOR.
[2020-12-08] MEDS: ENOXAPARIN SODIUM 40 MG/0.4 ML DISP.SYRIN SQ SCH (21:00)
--- NOTE | 2020-12-08 21:55 | NUR ---
RN NOTES PT REPORTED 8/10 PAIN ON A PAINS SCALE PRN DILAUDID PROVIDED. WILL CONTINUE TO MONITOR.
[2020-12-08] MEDS: LINEZOLID 600 MG TABLET PO SCH (21:56)
[2020-12-09] MEDS: HYDROMORPHONE INJ 2 MG/ML DISP.SYRIN IV PRN ×7 (00:58→21:00)
--- NOTE | 2020-12-09 03:58 | NUR ---
RN NOTES PT REPORTED 8/10 PAIN ON A PAINS SCALE PRN DILAUDID PROVIDED. WILL CONTINUE TO MONITOR.
--- NOTE | 2020-12-09 06:45 | NUR ---
RN NOTES PT AWAKE, A/OX4, DENIES ANY PAIN OR DISCOMFORT. NO SOB. IV SITE R-FEMORAL PICC LINE INTACT, PATENT, AND FLUSHES WELL, WITH DRESSING C/D/I. SUPRAPUBIC CATH IN PLACE, DRAINING CLEAR YELLOW URINE. KEPT PT CLEAN AND DRY AT ALL TIMES. SAFETY MEASURES FOLLOWED PT FOR BILATERAL LOWER EXTREMITY DEBRIDEMENT TODAY CONSENT SIGNED. WILL ENDORSE TO DAY SHIFT NURSE.
[2020-12-09 06:52] LABS: BASOPHILS # (AUTO) 0.1 K/uL (0.0-0.2); BASOPHILS % (AUTO) 0.5 % (0.0-2.0); EOSINOPHILS % (AUTO) 2.9 % (0.0-6.0); HEMATOCRIT 27 % (39-51); HEMOGLOBIN 8.6 g/dL (13.5-17.5); LYMPHOCYTES # (AUTO) 1.3 K/uL (0.8-4.8); LYMPHOCYTES % (AUTO) 12.3 % (20.0-44.0); MEAN CORPUSCULAR HGB CONC 32 g/dl (31.0-36.0); MEAN CORPUSCULAR VOLUME 83 fL (80-96); MONOCYTES # (AUTO) 0.6 K/uL (0.1-1.30); MONOCYTES % (AUTO) 6.1 % (2.0-12.0); NEUTROPHILS # (AUTO) 8.3 K/uL (1.8-8.9); NEUTROPHILS % (AUTO) 78.2 % (43.0-81.0); PLATELET COUNT (AUTO) 602 K/uL (150-450); RED BLOOD CELL COUNT(AUTO) 3.23 MIL/uL (4.5-6.0); WHITE BLOOD COUNT (AUTO) 10.6 K/uL (4.3-11.0)
[2020-12-09 06:59] LABS: CALCIUM, SERUM 8.3 mg/dL (8.5-10.1); CREATININE 2.3 mg/dL (0.6-1.3); PHOSPHORUS 4.4 mg/dL (2.5-4.9); POTASSIUM 3.8 mmol/L (3.5-5.1)
--- NOTE | 2020-12-09 07:20 | NUR ---
RN OPENING NOTE RECEIVED PATIENT SITTING IN BED. A/O X4. ON ROOM AIR, NO SOB NOTED. IN NO APPARENT DISTRESS. DENIES ANY PAIN OR DISCOMFORT AT THIS TIME. IV ACCESS ON R FEMORAL PICC LINE, INTACT AND PATENT. SUPRAPUBIC CATH IN PLACE, DRAINING YELLOW URINE. SAFETY MEASURES MAINTAINED. BED IN LOWEST POSITION, BRAKES LOCKED. SIDE RAILS UP X2. CALL LIGHT WITHIN REACH. WILL CONTINUE PLAN OF CARE.
[2020-12-09] MEDS: AZTREONAM 1 G in IV NS 0.9% 100 ML IV SCH ×2 (07:52→16:18)
[2020-12-09 08:00] VITALS: BP 119/66
[2020-12-09] MEDS: PROPRANOLOL LA 60 MG CAP.SA.24H PO SCH (08:26)
[2020-12-09] MEDS: LINEZOLID 600 MG TABLET PO SCH ×2 (08:26→21:00)
[2020-12-09] MEDS: DAKINS QUARTER STRENGTH (0.125%) 480 ML BOTTLE TOP SCH (08:32)
[2020-12-09 15:55] VITALS: BP 120/78
--- NOTE | 2020-12-09 19:35 | NUR ---
RN NOTES RECEIVED PATIENT SITTING IN BED. A/O X4. ON ROOM AIR, NO SOB NOTED. IN NO APPARENT DISTRESS. DENIES ANY PAIN OR DISCOMFORT AT THIS TIME. IV ACCESS ON R FEMORAL PICC LINE, INTACT AND PATENT. SUPRAPUBIC CATH IN PLACE, DRAINING YELLOW URINE. SAFETY MEASURES MAINTAINED. BED IN LOWEST POSITION, BRAKES LOCKED. SIDE RAILS UP X2. CALL LIGHT WITHIN REACH. WILL CONTINUE TO MONITOR.
--- NOTE | 2020-12-09 19:47 | NUR ---
RN CLOSING NOTE PATIENT RESTING IN BED. A/O X4. ON ROOM AIR, NO SOB NOTED. IN NO APPARENT DISTRESS. DENIES ANY PAIN OR DISCOMFORT AT THIS TIME. IV ACCESS ON R FEMORAL PICC LINE, INTACT AND PATENT, DRESSING C/D/I. NO SIGNS OF INFILTRATION. SUPRAPUBIC CATH IN PLACE, DRAINING YELLOW URINE, 1700 CC OUTPUT. ALL DUE MEDS GIVEN ORDERED. ALL NEEDS HAVE BEEN MET AND ATTENDED. SAFETY MEASURES MAINTAINED. BED IN LOWEST POSITION, BRAKES LOCKED. SIDE RAILS UP X2. KEPT CALL LIGHT WITHIN REACH. WILL ENDORSE CONTINUITY OF CARE TO ONCOMING SHIFT. .
[2020-12-09 20:00] VITALS: BP 143/80
[2020-12-09] MEDS: ENOXAPARIN SODIUM 40 MG/0.4 ML DISP.SYRIN SQ SCH (21:01)
[2020-12-10] MEDS: HYDROMORPHONE INJ 2 MG/ML DISP.SYRIN IV PRN ×6 (00:05→20:48)
[2020-12-10] MEDS: AZTREONAM 1 G in IV NS 0.9% 100 ML IV SCH ×4 (00:05→23:22)
--- NOTE | 2020-12-10 07:40 | NUR ---
MS RN OPENING NOTE RECEIVED PATIENT IN BED, AWAKE, A/O X4. ON ROOM AIR, NO SOB NOTED. IN NO APPARENT DISTRESS. DENIES ANY PAIN OR DISCOMFORT AT THIS TIME. IV ACCESS ON R FEMORAL PICC LINE, INTACT AND PATENT. NO SIGNS OF INFILTRATION. SUPRAPUBIC CATH IN PLACE, DRAINING YELLOW URINE. WOUND DRESSING DRY AND INTACT. SAFETY MEASURES MAINTAINED. BED IN LOWEST POSITION, BRAKES LOCKED. SIDE RAILS UP X2, KEPT CALL LIGHT WITHIN REACH. WILL CONTINUE TO MONITOR ACCORDINGLY.
[2020-12-10 08:00] VITALS: BP 129/70
[2020-12-10] MEDS: DAKINS QUARTER STRENGTH (0.125%) 480 ML BOTTLE TOP SCH (08:16)
[2020-12-10] MEDS: PROPRANOLOL LA 60 MG CAP.SA.24H PO SCH (08:16)
[2020-12-10] MEDS: LINEZOLID 600 MG TABLET PO SCH ×2 (08:16→20:40)
[2020-12-10] MEDS: GENTAMICIN 0.1% OINT 15 GM TUBE TP SCH ×3 (08:26→16:45)
--- NOTE | 2020-12-10 12:50 | NUR ---
RN NOTES ASSISTED GREGORIO SIMS DNP UPON CHANGING SUPRAPUBIC CATHETER AND PICC LINE FORM RIGHT TO LEFT FEMORAL AREA. PATIENT TOLERATED PROCEDURE WELL.
[2020-12-10 16:00] VITALS: BP 141/79
--- NOTE | 2020-12-10 18:41 | NUR ---
MS RN CLOSING NOTE PATIENT IN BED, AWAKE, A/O X4. ON ROOM AIR, NO SOB NOTED. IN NO APPARENT DISTRESS. DENIES ANY PAIN OR DISCOMFORT AT THIS TIME. IV ACCESS ON LEFT FEMORAL PICC LINE, INTACT AND PATENT. NO SIGNS OF INFILTRATION. SUPRAPUBIC CATH IN PLACE, DRAINING YELLOW URINE. WOUND DRESSING DRY AND INTACT. SAFETY MEASURES MAINTAINED. BED IN LOWEST POSITION, BRAKES LOCKED. SIDE RAILS UP X2, KEPT CALL LIGHT WITHIN REACH. ALL NEEDS ATTENDED AND MET, DUE MEDS GIVEN ORDERED. WILL ENDORSE TO ONCOMING SHIFT FOR SOM.
--- NOTE | 2020-12-10 19:33 | NUR ---
MS RN OPENING NOTE RECEIVED PT AWAKE IN BED. A/O X4. PT IS STABLE ON ROOM AIR. NO SOB OR S/S OF RESPIRATORY DISTRESS NOTED. PT DENIES ANY PAIN OR DISCOMFORT AT THIS TIME. IV ACCESS IN LEFT FEMORAL PICC LINE, INTACT AND PATENT. NO SIGNS OF INFILTRATION. SUPRAPUBIC CATH IN PLACE, DRAINING YELLOW URINE. WOUND DRESSING DRY AND INTACT. SAFETY PRECAUTIONS MAINTAINED. BED IN LOWEST LOCKED POSITION, HOB ELEVATED, SIDE RAILS UP X2. CALL LIGHT AND TABLE WITHIN REACH. WILL CONTINUE WITH PLAN OF CARE.
[2020-12-10 20:00] VITALS: BP 110/57
[2020-12-10] MEDS: ENOXAPARIN SODIUM 40 MG/0.4 ML DISP.SYRIN SQ SCH (20:39)
--- NOTE | 2020-12-10 20:48 | NUR ---
RN PAIN PT C/O ACHING PAIN IN POSTERIOR SACRAL AREA, RATED 9/10 ON PAIN SCALE. VSS. PER PT REQUEST, ADMINISTERED DILAUDID 2MG IV Q3H PRN FOR PAIN. WILL REASSESS PT IN 30 MINS AND CONTINUE TO MONITOR.
[2020-12-11] MEDS: HYDROMORPHONE INJ 2 MG/ML DISP.SYRIN IV PRN ×6 (00:54→23:45)
--- NOTE | 2020-12-11 00:54 | NUR ---
RN PAIN PT C/O ACHING PAIN IN POSTERIOR SACRAL AREA, RATED 10/10 ON PAIN SCALE. VSS. PER PT REQUEST, ADMINISTERED DILAUDID 2MG IV Q3H PRN FOR PAIN. WILL REASSESS PT IN 30 MINS AND CONTINUE TO MONITOR.
--- NOTE | 2020-12-11 06:30 | NUR ---
MS RN CLOSING NOTE PT IS IN BED WITH EYES CLOSED, AROUSABLE TO STIMULATION. A/O X4. PT IS STABLE ON ROOM AIR. NO SOB OR S/S OF RESPIRATORY DISTRESS NOTED. PT DENIES ANY PAIN OR DISCOMFORT AT THIS TIME. IV ACCESS IN LEFT FEMORAL PICC LINE; INTACT, PATENT, AND FLUSHING WELL. SUPRAPUBIC CATH IN PLACE, DRAINING YELLOW URINE. WOUND DRESSING DRY AND INTACT. ALL NEEDS HAVE BEEN MET. PAIN MANAGEMENT ADMINISTERED PER ORDER. SAFETY PRECAUTIONS MAINTAINED AT ALL TIMES. BED IN LOWEST LOCKED POSITION, HOB ELEVATED, SIDE RAILS UP X2. CALL LIGHT AND TABLE WITHIN REACH. WILL ENDORSE TO ONCOMING NURSE FOR SOM.
[2020-12-11 08:00] VITALS: BP 112/86
[2020-12-11] MEDS: LINEZOLID 600 MG TABLET PO SCH ×2 (09:01→21:21)
[2020-12-11] MEDS: AZTREONAM 1 G in IV NS 0.9% 100 ML IV SCH ×3 (09:03→23:03)
[2020-12-11] MEDS: DAKINS QUARTER STRENGTH (0.125%) 480 ML BOTTLE TOP SCH (09:09)
[2020-12-11] MEDS: GENTAMICIN 0.1% OINT 15 GM TUBE TP SCH ×3 (09:10→17:55)
[2020-12-11 09:57] LABS: BASOPHILS # (AUTO) 0.1 K/uL (0.0-0.2); BASOPHILS % (AUTO) 0.8 % (0.0-2.0); LYMPHOCYTES # (AUTO) 1.3 K/uL (0.8-4.8); MONOCYTES # (AUTO) 0.5 K/uL (0.1-1.30); PLATELET COUNT (AUTO) 480 K/uL (150-450)
[2020-12-11 10:05] LABS: EOSINOPHILS % (AUTO) 3.3 % (0.0-6.0); HEMATOCRIT 23 % (39-51); HEMOGLOBIN 7.1 g/dL (13.5-17.5); LYMPHOCYTES % (AUTO) 14.3 % (20.0-44.0); MEAN CORPUSCULAR HGB CONC 31 g/dl (31.0-36.0); MEAN CORPUSCULAR VOLUME 85 fL (80-96); MONOCYTES % (AUTO) 5.5 % (2.0-12.0); NEUTROPHILS # (AUTO) 6.9 K/uL (1.8-8.9); NEUTROPHILS % (AUTO) 76.1 % (43.0-81.0); RED BLOOD CELL COUNT(AUTO) 2.68 MIL/uL (4.5-6.0); WHITE BLOOD COUNT (AUTO) 9.1 K/uL (4.3-11.0)
[2020-12-11 11:05] LABS: CALCIUM, SERUM 6.2 mg/dL (8.5-10.1); CREATININE 1.9 mg/dL (0.6-1.3); PHOSPHORUS 3.1 mg/dL (2.5-4.9); POTASSIUM 3.5 mmol/L (3.5-5.1)
[2020-12-11 12:00] VITALS: BP 147/80
[2020-12-11] MEDS: PROPRANOLOL LA 60 MG CAP.SA.24H PO SCH (13:50)
[2020-12-11 16:00] VITALS: BP 134/78
--- NOTE | 2020-12-11 18:00 | NUR ---
status quo.medicated x2 with dilaudid for sacral pain.
[2020-12-11 20:00] VITALS: BP 136/72
[2020-12-11 20:04] VITALS: BP 136/72
[2020-12-11] MEDS: ENOXAPARIN SODIUM 40 MG/0.4 ML DISP.SYRIN SQ SCH (21:23)
--- NOTE | 2020-12-12 04:47 | NUR ---
Closing notes: alert and orientated X4 verbalizes his needs Medicated IV dilaudidi 2 mg for wound pain on the sacrum and effective supra pubic cath drainage clear yellow and patency maintained
[2020-12-12] MEDS: HYDROMORPHONE INJ 2 MG/ML DISP.SYRIN IV PRN ×5 (05:35→22:52)
--- NOTE | 2020-12-12 07:28 | NUR ---
RN OPENING NOTE- RECEIVED PT, A/O X4. INTERACTIVE CALM, PT IS STABLE ON ROOM AIR. NO SOB OR S/S OF RESPIRATORY DISTRESS NOTED. PT DENIES ANY PAIN OR DISCOMFORT AT THIS TIME. IV ACCESS IN LEFT FEMORAL PICC LINE, INTACT AND PATENT. NO SIGNS OF INFILTRATION. SUPRAPUBIC CATH IN PLACE, DRAINING YELLOW URINE. WOUND DRESSING DRY AND INTACT. SAFETY PRECAUTIONS MAINTAINED. BED IN LOWEST LOCKED POSITION, HOB ELEVATED, SIDE RAILS UP X2. CALL LIGHT AND TABLE WITHIN REACH. WILL CONTINUE WITH PLAN OF CARE.
[2020-12-12 08:00] VITALS: BP 118/69
[2020-12-12] MEDS: AZTREONAM 1 G in IV NS 0.9% 100 ML IV SCH ×2 (08:12→16:18)
[2020-12-12] MEDS: LINEZOLID 600 MG TABLET PO SCH ×2 (08:39→21:23)
[2020-12-12] MEDS: PROPRANOLOL LA 60 MG CAP.SA.24H PO SCH (08:39)
[2020-12-12] MEDS: DAKINS QUARTER STRENGTH (0.125%) 480 ML BOTTLE TOP SCH (08:55)
[2020-12-12] MEDS: GENTAMICIN 0.1% OINT 15 GM TUBE TP SCH ×3 (08:56→16:19)
[2020-12-12] MEDS ORDERED: POTASSIUM CHLORIDE 20 MEQ TAB.PRT.SR PO ONE (11:00)
[2020-12-12 16:00] VITALS: BP 149/79
--- NOTE | 2020-12-12 18:33 | NUR ---
RN CLOSING NOTE- PT IS A/O X4. INTERACTIVE CALM, PT IS STABLE ON ROOM AIR. NO SOB OR S/S OF RESPIRATORY DISTRESS NOTED. PT DENIES ANY PAIN OR DISCOMFORT AT THIS TIME HE IS RECEIVING DILAUDID 2 MG Q-3-4 HRS. IV ACCESS IN LEFT FEMORAL PICC LINE, INTACT AND PATENT. NO SIGNS OF INFILTRATION. SUPRAPUBIC CATH IN PLACE, DRAINING YELLOW URINE. WOUND DRESSING DRY AND INTACT. SAFETY PRECAUTIONS MAINTAINED. BED IN LOWEST LOCKED POSITION, HOB ELEVATED, SIDE RAILS UP X2. CALL LIGHT AND TABLE WITHIN REACH. WILL CONTINUE WITH PLAN OF CARE. REPORT TO NOC SHIFT FOR CONTINUITY OF CARE
--- NOTE | 2020-12-12 19:45 | NUR ---
RN OPENING NOTES: RECEIVED PATIENT AWAKE, PLACED IN BED COMFORTABLY, BED IN LOW POSITION, CALL LIGHTS WITHIN REACH, NO COMPLAIN OF PAIN AND DISCOMFORT AT THIS TIME, ON SUPRAPUBIC CATHETER INFUSING WELL, PATIENT KEPT CLEAN AND DRY ALL NEEDS MET, WILL CONTINUE TO MONITOR.
[2020-12-12 20:00] VITALS: BP 132/67
[2020-12-12] MEDS: ENOXAPARIN SODIUM 40 MG/0.4 ML DISP.SYRIN SQ SCH (21:24)
[2020-12-13] MEDS: AZTREONAM 1 G in IV NS 0.9% 100 ML IV SCH ×2 (01:11→08:03)
[2020-12-13] MEDS: HYDROMORPHONE INJ 2 MG/ML DISP.SYRIN IV PRN ×2 (04:18→08:56)
--- NOTE | 2020-12-13 06:50 | NUR ---
MS RN CLOSING NOTE: PATIENT PLACE IN BED COMFORTABLE, AWAKE WITH NO COMPLAIN OF PAIN AND DISCOMFORT, A/O X4 ABLE TO MAKE NEED KNOWN, SKIN ASSESSMENT DONE AND DOCUMENTED, PATIENT HAS SUPRAPUBIC CATHETER INFUSING WELL, WITH RIGHT FEMORAL PICC LINE WITH ONGOING IV LINE OF NSS @10ML/HR TKO, PATIENT KEPT CLEAN AND DRY, ALL NEEDS MET, ENDORSE TO INCOMING SHIFT.
[2020-12-13 07:02] LABS: BASOPHILS # (AUTO) 0.1 K/uL (0.0-0.2); BASOPHILS % (AUTO) 0.7 % (0.0-2.0); EOSINOPHILS % (AUTO) 2.5 % (0.0-6.0); HEMATOCRIT 28 % (39-51); HEMOGLOBIN 8.9 g/dL (13.5-17.5); LYMPHOCYTES # (AUTO) 1.8 K/uL (0.8-4.8); LYMPHOCYTES % (AUTO) 15.6 % (20.0-44.0); MEAN CORPUSCULAR HGB CONC 31 g/dl (31.0-36.0); MEAN CORPUSCULAR VOLUME 83 fL (80-96); MONOCYTES # (AUTO) 0.5 K/uL (0.1-1.30); MONOCYTES % (AUTO) 4.9 % (2.0-12.0); NEUTROPHILS # (AUTO) 8.6 K/uL (1.8-8.9); NEUTROPHILS % (AUTO) 76.3 % (43.0-81.0); PLATELET COUNT (AUTO) 604 K/uL (150-450); RED BLOOD CELL COUNT(AUTO) 3.41 MIL/uL (4.5-6.0); WHITE BLOOD COUNT (AUTO) 11.2 K/uL (4.3-11.0)
--- NOTE | 2020-12-13 07:25 | NUR ---
MS RN OPENING NOTES RECEIVED PATIENT AWAKE IN BED, ALERT AN ORIENTED X 4. NOT IN ANY APPARENT DISTRESS. BREATHING IS EVEN AND UNLABORED. TOLERATING WELL ON ROOM AIR. IV ACCESS PICC LINE LEFT FEMORAL PATENT, INTACT AND FLUSHING WELL. SUPRAPUBIC CATHETER PATENT, INTACT AND DRAINING YELLOW CLEAR URINE. SAFETY MEASURES IN PLACE WITH BED LOCKED AT LOW POSITION AND SIDE RAILS UP X2. CALL LIGHT IS WITHIN REACH. WILL CONTINUE TO MONITOR THROUGHOUT SHIFT.
[2020-12-13 07:40] LABS: CREATININE 2.4 mg/dL (0.6-1.3); POTASSIUM 4.6 mmol/L (3.5-5.1)
[2020-12-13 08:09] LABS: CALCIUM, SERUM 8.2 mg/dL (8.5-10.1)
[2020-12-13] MEDS: LINEZOLID 600 MG TABLET PO SCH (08:45)
[2020-12-13 08:47] VITALS: BP 139/79
[2020-12-13] MEDS: PROPRANOLOL LA 60 MG CAP.SA.24H PO SCH (08:47)
[2020-12-13] MEDS: DAKINS QUARTER STRENGTH (0.125%) 480 ML BOTTLE TOP SCH (08:48)
[2020-12-13] MEDS: GENTAMICIN 0.1% OINT 15 GM TUBE TP SCH ×2 (08:49→13:08)
[2020-12-13] MEDS ORDERED: HYDROMORPHONE HCL 2 MG TABLET PO PRN (10:30)
--- NOTE | 2020-12-13 15:05 | NUR ---
MS EGG BREAKING MACHINE OPERATOR NOTES PATIENT WAS DISCHARGED WITH STABLE VITAL SIGNS. NO SOB. NO S/S OF DISTRESS. DISCHARGE SUMMARY REVIEWED WITH PATIENT AND SIGNED, VERBALIZED UNDERSTANDING.NO BELONGINGS FORM ON INITIAL ADMISSION PER PATIENT AND WAS NOT IN PATIENT'S CHART. ALL BELONGINGS LEFT UNIT WITH PATIENT. PICKED UP BY FRIEND, TRUDY VIA PRIVATE CAR.
== END 2020-12-13 15:00 | disposition home health service (06) | DRG 853 ==
LOC: TELE1 12:18 → MEDSG1 13:57 → MED 12-05 19:35
PROVIDERS: ADMIT Nurse Practitioner Acute Care; ATTEND Internal Medicine
PROC: 05HY33Z Insertion of Infusion Device into Upper Vein, Percutaneous Approach (ICD-10-PCS; 2020-12-05)
PROC: 02HV33Z Insertion of Infusion Device into Superior Vena Cava, Percutaneous Approach (ICD-10-PCS; 2020-12-05)
PROC: B548ZZA Ultrasonography of Superior Vena Cava, Guidance (ICD-10-PCS; 2020-12-05)
PROC: 0QB30ZZ Excision of Left Pelvic Bone, Open Approach (ICD-10-PCS; principal; 2020-12-06)
PROC: 0JBR0ZZ Excision of Left Foot Subcutaneous Tissue and Fascia, Open Approach (ICD-10-PCS; 2020-12-10)
PROC: 02HV33Z Insertion of Infusion Device into Superior Vena Cava, Percutaneous Approach (ICD-10-PCS; 2020-12-10)
PROC: B548ZZA Ultrasonography of Superior Vena Cava, Guidance (ICD-10-PCS; 2020-12-10)
DX: A41.9 Sepsis, unspecified organism (principal); L89.224 Pressure ulcer of left hip, stage 4; L89.523 Pressure ulcer of left ankle, stage 3; L89.893 Pressure ulcer of other site, stage 3; N17.0 Acute kidney failure with tubular necrosis; E43 Unspecified severe protein-calorie malnutrition; E87.1 Hypo-osmolality and hyponatremia; G82.20 Paraplegia, unspecified; N18.4 Chronic kidney disease, stage 4 (severe); N39.0 Urinary tract infection, site not specified; Z16.35 Resistance to multiple antimicrobial drugs; I12.9 Hypertensive chronic kidney disease with stage 1 through stage 4 chronic kidney disease, or unspecified chronic kidney disease; L89.159 Pressure ulcer of sacral region, unspecified stage; D63.1 Anemia in chronic kidney disease; Z20.822 Contact with and (suspected) exposure to COVID-19; Z86.718 Personal history of other venous thrombosis and embolism; E78.5 Hyperlipidemia, unspecified; Z87.442 Personal history of urinary calculi; K21.9 Gastro-esophageal reflux disease without esophagitis; D50.9 Iron deficiency anemia, unspecified; E11.22 Type 2 diabetes mellitus with diabetic chronic kidney disease; Z79.899 Other long term (current) drug therapy; E88.09 Other disorders of plasma-protein metabolism, not elsewhere classified; M62.462 Contracture of muscle, left lower leg; M62.461 Contracture of muscle, right lower leg; Z98.890 Other specified postprocedural states; N31.9 Neuromuscular dysfunction of bladder, unspecified; N50.89 Other specified disorders of the male genital organs; Z87.440 Personal history of urinary (tract) infections; Z88.0 Allergy status to penicillin; Z93.59 Other cystostomy status; Z93.3 Colostomy status; E86.1 Hypovolemia; Z87.448 Personal history of other diseases of urinary system; L98.9 Disorder of the skin and subcutaneous tissue, unspecified; G89.4 Chronic pain syndrome; Z72.0 Tobacco use; S81.812A Laceration without foreign body, left lower leg, initial encounter; S81.811A Laceration without foreign body, right lower leg, initial encounter; X58.XXXA Exposure to other specified factors, initial encounter; Y92.9 Unspecified place or not applicable; L89.619 Pressure ulcer of right heel, unspecified stage; L89.629 Pressure ulcer of left heel, unspecified stage; D47.3 Essential (hemorrhagic) thrombocythemia; M62.562 Muscle wasting and atrophy, not elsewhere classified, left lower leg; M62.561 Muscle wasting and atrophy, not elsewhere classified, right lower leg; B96.5 Pseudomonas (aeruginosa) (mallei) (pseudomallei) as the cause of diseases classified elsewhere
CPT/HCPCS: 36410; 36415; 36569; 80048-TC; 80053-TC; 80061-TC; 81001; 82550-TC; 83540-TC; 83735-TC; 83970; 84100-TC; 84155; 84165; 84443-TC; 85025-TC; 87040-TC; 87070-TC; 87086-TC; 87186-TC; A4216; A6253; A6403; G0378; J1170; J1650; J2020; J3475; J3490; J7030; J7040; J7050; J7120

== ENCOUNTER 2020-12-28 17:51 | Inpatient (IN) | payer MEDICARE ==
[~2020-12-28] VITALS: Ht 190.5 cm; Wt 115.7 kg
[~2020-12-28 17:51] MED LIST changes: +PROP80CA51 PO
--- NOTE | 2020-12-28 19:05 | NUR ---
pt bibself referred from oscar michele, for chronic non healing wounds on r thigh, l knee, left foot/ankle, and left buttock. pt aaox4 breathing evenly and unlabored. pt warm to the touch and tachycardic. pt is wheel chair bound and has lower extremity contractures. md at bedside for eval. pt given blanket and call light within reach
--- NOTE | 2020-12-28 19:15 | NUR ---
lab at bedside. multiple unsuccessful attempts
[2020-12-28] MEDS ORDERED: ACETAMINOPHEN 325 MG TABLET PO ONE (19:30)
[2020-12-28] MEDS ORDERED: AZTREONAM 1 G in IV NS 0.9% 100 ML IV ONE (20:00)
[2020-12-28] MEDS ORDERED: IV NS 0.9% 1,000 ML IV ONE (20:00)
--- NOTE | 2020-12-28 20:15 | NUR ---
attempted to place saline lock, unsuccessful, aware
--- NOTE | 2020-12-28 20:37 | NUR ---
PICC LINE ORDERED.
--- NOTE | 2020-12-28 20:56 | NUR ---
COVID SWAB COLLECETED AND SENT TO LAB
--- NOTE | 2020-12-28 20:56 | NUR ---
NURSING NUTRITION CLUB AMBASSADOR INFORMED THAT PIOCC LINE NURSE WILL BE IN THE MORNING
[2020-12-28] MEDS ORDERED: LINEZOLID RTU BAG 600 MG in PREMIX 1 EA IV SCH (21:00)
[2020-12-28] MEDS ORDERED: ACETAMINOPHEN 325 MG TABLET ONE (21:31)
--- NOTE | 2020-12-28 21:32 | NUR ---
pt signed informed consent for peripherally inserted central catheter.
--- NOTE | 2020-12-28 21:39 | NUR ---
at bedside for procedure
--- NOTE | 2020-12-28 21:42 | NUR ---
PT REFUSED CENTRAL LINE PLACEMENT. PER PT, HE ONLY WANTS A PICC LINE IN THE LEG. PT IS WILLING TO WAIT FOR PICC LINE NURSE. EXPLAINED THE NEED FOR CENTRAL LINE, PT STILL REFUSED
[2020-12-28 21:55] LABS: BILIRUBIN,URINE NEGATIVE (NEGATIVE); COLOR,URINE YELLOW (YELLOW); LEUKOCYTE ESTERASE ,URINE LARGE (NEGATIVE); NITRITE, URINE POSITIVE (NEGATIVE); PROTEIN,URINE 30 mg/dl (NEGATIVE); UGLUCOSE NEGATIVE (NEGATIVE); UROBILINOGEN,URINE 0.2 EU/dL (0.2)
[2020-12-28 21:59] LABS: BACTERIA,URINE 2+ /HPF (None Seen); MUCUS,URINE Moderate /LPF (None Seen); RBC,URINE 21-50 /HPF (0-2); SQUAMOUS EPITHELIAL CELL,UR Few /HPF (None Seen); URINE AMORPHOUS URATE Many /HPF (None Seen); WBC,URINE TOO NUMEROUS TO COUN /HPF (0-3)
--- NOTE | 2020-12-28 22:35 | NUR ---
CALLED NURSING OCCUPATIONAL PHYSICIAN TO REQUEST PICC LINE AGAIN BUT EARLIEST WILL BE IN THE MORNING.
[2020-12-28 22:59] LABS: BASOPHILS % (AUTO) 0.2 % (0.0-2.0); EOSINOPHILS % (AUTO) 0.2 % (0.0-6.0); HEMATOCRIT 26 % (39-51); HEMOGLOBIN 7.9 g/dL (13.5-17.5); LYMPHOCYTES # (AUTO) 0.7 K/uL (0.8-4.8); LYMPHOCYTES % (AUTO) 5.1 % (20.0-44.0); MEAN CORPUSCULAR HGB CONC 30 g/dl (31.0-36.0); MEAN CORPUSCULAR VOLUME 80 fL (80-96); MONOCYTES # (AUTO) 0.9 K/uL (0.1-1.30); MONOCYTES % (AUTO) 6.3 % (2.0-12.0); NEUTROPHILS # (AUTO) 12.5 K/uL (1.8-8.9); NEUTROPHILS % (AUTO) 88.2 % (43.0-81.0); PLATELET COUNT (AUTO) 572 K/uL (150-450); RED BLOOD CELL COUNT(AUTO) 3.23 MIL/uL (4.5-6.0); WHITE BLOOD COUNT (AUTO) 14.2 K/uL (4.3-11.0)
[2020-12-28] MEDS ORDERED: Z GUARD REMEDY 2 OZ OINT TP PRN (23:00)
[2020-12-28] MEDS ORDERED: ZOLPIDEM TARTRATE 5 MG TABLET PO PRN (23:00)
[2020-12-28] MEDS ORDERED: MAG HYDROX/AL HYDROX/SIMETH 30 ML UDC PO PRN (23:00)
[2020-12-28] MEDS ORDERED: HYDROMORPHONE INJ 2 MG/ML DISP.SYRIN IV PRN (23:00)
[2020-12-28] MEDS ORDERED: MAGNESIUM HYDROXIDE 30 ML UDC PO PRN (23:00)
--- NOTE | 2020-12-28 23:28 | NUR ---
PT GOING TO 319 WHEN ADMITTED
--- NOTE | 2020-12-28 23:32 | NUR ---
SPOKE TO HOSPITALIST JV NEWMAN, VERBAL ORDER TO GIVE DILAUDID 2MG IV
[2020-12-28 23:55] LABS: ALANINE AMINOTRANSFERASE 47 U/L (12-78); ALKALINE PHOSPHATASE 399 U/L (46-116); ASPARTATE AMINOTRANSFERASE 37 U/L (15-37); BILIRUBIN,DIRECT 0.1 mg/dL (0.0-0.2); BILIRUBIN,TOTAL 0.3 mg/dL (0.2-1.0); CALCIUM, SERUM 8.6 mg/dL (8.5-10.1); CARBON DIOXIDE 12 mmol/L (21-32); CHLORIDE 97 mmol/L (98-107); CREATININE 3.1 mg/dL (0.6-1.3); GLUCOSE 206 mg/dL (74-106); POTASSIUM 4.6 mmol/L (3.5-5.1); SODIUM SERUM 128 mmol/L (136-145); TOTAL PROTEIN, SERUM 7.8 g/dL (6.4-8.2)
[2020-12-28 23:56] LABS: ALBUMIN 1.3 g/dL (3.4-5.0); UREA NITROGEN, BLOOD 84 mg/dL (7-18)
--- NOTE | 2020-12-29 00:12 | NUR ---
GAVE REPORT TO SANDRA FOWLER FOR SOM
[2020-12-29] MEDS ORDERED: LINEZOLID RTU BAG 300 ML IV ONE (00:23)
--- NOTE | 2020-12-29 00:56 | NUR ---
pt transported per acls jhonatan
[2020-12-29] MEDS: HYDROMORPHONE INJ 2 MG/ML DISP.SYRIN IV PRN ×4 (02:40→19:50)
[2020-12-29] MEDS ORDERED: AZTREONAM 1 G VIAL ONE (05:12)
[2020-12-29] MEDS: AZTREONAM 1 G in IV NS 0.9% 100 ML IV SCH ×2 (05:25→12:31)
--- NOTE | 2020-12-29 07:40 | NUR ---
RN OPENING NOTES Patient seen comfortably lying in bed, no SOB, respirations even and unlabored, no apparent distress noted, denies any pain or discomfort at this time. Call light left within reach, safety precautions in place, brakes locked, side rails up X 2, will monitor closely for any changes.
[2020-12-29 08:00] VITALS: BP 123/74
[2020-12-29] MEDS: LINEZOLID RTU BAG 600 MG in PREMIX 1 EA IV SCH ×2 (08:30→22:13)
[2020-12-29] MEDS ORDERED: COLLAGENASE 30 GM TUBE TP SCH (09:00)
--- NOTE | 2020-12-29 10:28 | NUR ---
WOUND CARE CONSULT: PT NOT FEELING WELL AT THIS TIME. REVIEWED CHART, NURSING DOCUMENTATION AND PHOTOS WHICH INDICATE MULTIPLE WOUNDS, PRESENT ON ADMISSION. DR JAVED AND DR GONZALEZ NOTIFIED OF PT READMISSION. RECOMMENDATIONS MADE FOR SKIN PROTECTION. DISCUSSED WITH NURSING STAFF. FIRST STEP LOW AIRLOSS MATTRESS IS ON ORDER. MD IN AGREEMENT WITH PLAN OF CARE.
[2020-12-29 12:00] VITALS: BP 152/58
[2020-12-29 16:00] VITALS: BP 128/61
[2020-12-29] MEDS: ACETAMINOPHEN 325 MG TABLET PO PRN (16:48)
[2020-12-29 17:14] LABS: CALCIUM, SERUM 7.8 mg/dL (8.5-10.1); CREATININE 2.7 mg/dL (0.6-1.3); MAGNESIUM 1.6 mg/dL (1.8-2.4); PHOSPHORUS 3.3 mg/dL (2.5-4.9); POTASSIUM 4.2 mmol/L (3.5-5.1)
[2020-12-29 17:30] LABS: BASOPHILS % (AUTO) 0.3 % (0.0-2.0); EOSINOPHILS % (AUTO) 0.5 % (0.0-6.0); HEMATOCRIT 24 % (39-51); HEMOGLOBIN 7.3 g/dL (13.5-17.5); LYMPHOCYTES % (AUTO) 6.8 % (20.0-44.0); MEAN CORPUSCULAR HGB CONC 30 g/dl (31.0-36.0); MEAN CORPUSCULAR VOLUME 80 fL (80-96); MONOCYTES # (AUTO) 1.3 K/uL (0.1-1.30); NEUTROPHILS # (AUTO) 12.2 K/uL (1.8-8.9); NEUTROPHILS % (AUTO) 83.4 % (43.0-81.0); PLATELET COUNT (AUTO) 574 K/uL (150-450); RED BLOOD CELL COUNT(AUTO) 3.02 MIL/uL (4.5-6.0); WHITE BLOOD COUNT (AUTO) 14.7 K/uL (4.3-11.0)
--- NOTE | 2020-12-29 17:34 | NUR ---
RN MS NOTES PT HAS ORDER FOR CT ABD/PELVIS WITHOUT CONTRAST, PER RADIOLOGY IT WILL BE USELESS WITHOUT CONTRAST, DR. ESCOBAR INFORMED AND STATED THAT HE WOULD PREFER NO CONTRAST UNTIL RENAL FUNCTION IMPROVES, MAGNESIUM LEVEL IS 1.6, MD ORDERED 1 G MAG SULFATE IV X 1, NOTED AND CARRIED OUT.
[2020-12-29] MEDS ORDERED: Magnesium 1GM/D5W 100ML PREMIX 100 ML IV ONE (18:00)
[2020-12-29] MEDS: IV NS 0.9% 1,000 ML IV PRN (18:37)
--- NOTE | 2020-12-29 18:41 | NUR ---
RN CLOSING NOTES Patient lying in bed, AO x 4, able to make needs known can follow simple commands, no SOB, breathing even and unlabored. Cardac monitor reveals sinus tachycardia ranging 110-130's, patient denies any dizziness, no headache, no chest pain at this time. Patient also had PICC line insertion today at the left groin, no bleeding at site, no unusual odor, dressings intact. Due medications given per MD order, pain medications given when non pharmacological measures ineffective. Patient on monitoring for fever, had an episode of elevated temp around 1700, he has a standing order for tylenol, medication given as ordered, cooling measures rendered, noted with help, temperature went down to 98.8. Call light left within reach, all needs attended, kept clean and dry, safety precautions maintained, brakes locked, side rails up X 2, will endorse to next shift for continuity of care.
[2020-12-29] MEDS ORDERED: AZTREONAM 1 G VIAL IM SCH (19:00)
[2020-12-29] MEDS ORDERED: LEVOFLOXACIN (250MG) 250 MG TABLET PO SCH (19:00)
--- NOTE | 2020-12-29 19:30 | NUR ---
CLINICAL ACCOUNT LIAISON NOTES RECEIVED ON BED A/O X4,BREATHING REGULAR,NOT IN ANY FORM OF DISTRESS,C/O PAIN ON SACRAL WOUND,WILL MEDICATE.WITH SUPRA PUBIC CATH IN PLACE DRAINING YELLOWISH OUTPUT,PARAPLEGIC,LOWER EXTREMITIES CONTRACTED.S/P PLACEMENT OF PICC LINE LEFT GROIN TRIPLE GROIN.PRESENT IVF NS 1 LITER INFUSING WELL AT 75ML/HR RATE,VIA IV PUMP.ON SPECIALTY MATTRESS FOR SKIN MANAGEMENT.CALL LIGHT IN REACH,NEEDS ANTICIPATED.
--- NOTE | 2020-12-29 19:50 | NUR ---
PRESSROOM SUPERVISOR NOTES PAIN MANAGEMENT MEDICATED WITH DILAUDID 2MG IV ORDERED FOR STRONG PAIN.
[2020-12-29 20:00] VITALS: BP 122/54
--- NOTE | 2020-12-29 20:00 | NUR ---
ADVISOR CONSULTANT NOTES REPORTED BY FOOD AND BEVERAGE ANALYST,LACTIC ACID 2.1,ITS TRENDING DOWN FORM 3.1.ON IVF NS AT 75ML/HR RATE
[2020-12-29 20:12] LABS: BILIRUBIN,URINE NEGATIVE (NEGATIVE); COLOR,URINE YELLOW (YELLOW); LEUKOCYTE ESTERASE ,URINE LARGE (NEGATIVE); NITRITE, URINE POSITIVE (NEGATIVE); PROTEIN,URINE TRACE mg/dl (NEGATIVE); UGLUCOSE NEGATIVE (NEGATIVE); UROBILINOGEN,URINE 0.2 EU/dL (0.2)
[2020-12-29 20:13] LABS: CREATININE, URINE 35.9 MG/DL (30.0-125.0); URINE TOTAL PROTEIN 81.4 mg/dL (0-11.9)
--- NOTE | 2020-12-29 20:30 | NUR ---
OPERATIONS MANAGER STATION NOTES [id number] ON TELE MONITOR
[2020-12-29] MEDS: AZTREONAM 2 G in IV NS 0.9% 100 ML IV SCH (20:50)
[2020-12-29 21:14] LABS: BACTERIA,URINE Many /HPF (None Seen); SQUAMOUS EPITHELIAL CELL,UR Few /HPF (None Seen); WBC,URINE 21-50 /HPF (0-3)
[2020-12-29 22:38] LABS: EOSINOPHIL,URINE None Seen
[2020-12-30] VITALS (11 sets, daily range): BP systolic 96–128; BP diastolic 50–78
--- NOTE | 2020-12-30 | NUR ---
ROUGE MILLER NOTES NPO THIS TIME,GOING FOR SERIAL EXCISIONAL WOUND DEBRIDEMENT OF BILATERAL LOWER EXTREMITIES,LEFT BUTTOCKS AND HIP.
[2020-12-30] MEDS: HYDROMORPHONE INJ 2 MG/ML DISP.SYRIN IV PRN ×7 (00:52→23:47)
--- NOTE | 2020-12-30 00:52 | NUR ---
FIG WASHER NOTES PAIN MANAGEMENT C/O BILATERAL HIP PAIN 8/10 ON PAIN SCALE,MEDICATED WITH DILAUDID 2MG IV ORDERED FOR SEVERE PAIN
--- NOTE | 2020-12-30 03:00 | NUR ---
FREIGHT TEAM ASSOCIATE NOTES REPORTED BY LABS,BLOOD CULTURE RESULT GRAM POSITIVE COCCI IN PAIRS AND IN CHAINS,BRONZE CHASER JV NEWMAN AWARE.
[2020-12-30] MEDS: AZTREONAM 2 G in IV NS 0.9% 100 ML IV SCH ×3 (04:30→21:03)
--- NOTE | 2020-12-30 05:30 | NUR ---
PET SITTING NOTES MORNING CARE RENDERED BY JOSE CARLOS RASCON,TOLERATED WELL.ALL DUE IV ABX GIVEN, NO ADVERSE REACTIONS NOTED.KEPT NPO GOING FOR SURGERY TODAY.CONSENT ON CHART. IN NO ACUTE DISTRESS.
[2020-12-30 06:51] LABS: BASOPHILS % (AUTO) 0.3 % (0.0-2.0); EOSINOPHILS % (AUTO) 0.9 % (0.0-6.0); HEMATOCRIT 22 % (39-51); LYMPHOCYTES # (AUTO) 1.1 K/uL (0.8-4.8); MEAN CORPUSCULAR HGB CONC 31 g/dl (31.0-36.0); MEAN CORPUSCULAR VOLUME 80 fL (80-96); MONOCYTES # (AUTO) 0.9 K/uL (0.1-1.30); MONOCYTES % (AUTO) 6.7 % (2.0-12.0); NEUTROPHILS # (AUTO) 11.8 K/uL (1.8-8.9); NEUTROPHILS % (AUTO) 84.1 % (43.0-81.0); PLATELET COUNT (AUTO) 526 K/uL (150-450); RED BLOOD CELL COUNT(AUTO) 2.77 MIL/uL (4.5-6.0); WHITE BLOOD COUNT (AUTO) 14.1 K/uL (4.3-11.0)
[2020-12-30] MEDS ORDERED: LIDOCAINE 1% INJ 50 ML MDV IJ ONE (06:54)
[2020-12-30] MEDS ORDERED: BUPIVACAINE MPF 0.5% W/EPI INJ 30 ML VIAL ONE (06:54)
[2020-12-30 06:57] LABS: HEMOGLOBIN 6.9 g/dL (13.5-17.5)
--- NOTE | 2020-12-30 07:10 | NUR ---
FIELD SALES EXECUTIVE NOTES REPORTED BY LAB,H/H DOWN TO 6.9.HOSPITALIST JV VARGAS MADE AWARE BY CHARGE NURSE WITH ORDER FOR 1 UNIT PRBC,BUT APPARENTLY CHANGE TO [address] MARCEL JAVED, LABS MADE AWARE.
[2020-12-30 07:12] LABS: BILIRUBIN,TOTAL 0.2 mg/dL (0.2-1.0); CALCIUM, SERUM 8.2 mg/dL (8.5-10.1); CREATININE 2.5 mg/dL (0.6-1.3); MAGNESIUM 1.9 mg/dL (1.8-2.4); PHOSPHORUS 4.4 mg/dL (2.5-4.9); POTASSIUM 3.4 mmol/L (3.5-5.1); TOTAL PROTEIN, SERUM 6.8 g/dL (6.4-8.2)
--- NOTE | 2020-12-30 07:30 | NUR ---
DRAFTER DETAIL NOTES PATIENT WAS SOFT WORK WRAPPER EXAMINER THIS TIME DOWN TO SURGERY.
--- NOTE | 2020-12-30 07:30 | NUR ---
AIDS NURSE OPENING NOTES RECEIVED PATIENT AWAKE ON BED AND A/O X4. ON ROOM AIR TOLERATING WELL WITH NO COMPLAINTS OF SOB. NOT IN DISTRESS. WITH NO COMPLAINTS OF PAIN AT THIS TIME. WITH IV ACCESS AT LEFT GROIN PICC LINE WITH IVF NS AT 75ML/HR. SAFETY MEASURES IN PLACED. CALL LIGHT WITHIN REACH. BED ON LOWEST AND LOCKED POSITION. WILL CONTINUE TO MONITOR.
[2020-12-30] MEDS ORDERED: CELLULOSE,OXIDIZED 1 EA PACK MC ONE ×3 (08:14→08:15)
[2020-12-30] MEDS: LINEZOLID RTU BAG 600 MG in PREMIX 1 EA IV SCH ×2 (09:00→22:02)
--- NOTE | 2020-12-30 09:10 | NUR ---
MS RN NOTE PATIENT FROM OR WITH ONGOING BT AT 60ML/HR. PATIENT IS AWAKE AND A/O X4. VITAL SIGNS CHECKED: KARTHIKEYAN-119/73, TEMP-98.1, RR-17, VT-103BPM AND O2 SAT-97%.
[2020-12-30 09:11] LABS: BAND % (MANUAL) 1 % (0.0-5.0); EOSINOPHILS % (MANUAL) 1 % (0-4); LYMPHOCYTES % (MANUAL) 9 % (16-48); MONOCYTES % (MANUAL) 5 % (0-11.0); NEUTROPHILS % (MANUAL) 84 (42-76)
[2020-12-30] MEDS: PROPRANOLOL HCL 40 MG TABLET PO SCH ×2 (10:29→17:00)
[2020-12-30] MEDS ORDERED: LEVOFLOXACIN (250MG) 250 MG TABLET PO SCH (13:00)
[2020-12-30] MEDS: THERAHONEY GEL 1.5 OZ TUBE TP SCH (13:32)
[2020-12-30] MEDS ORDERED: MEROPENEM 1 G in IV NS 0.9% 100 ML IV SCH (14:00)
[2020-12-30 14:54] LABS: HEMATOCRIT 24 % (39-51); HEMOGLOBIN 7.5 g/dL (13.5-17.5); MEAN CORPUSCULAR HGB CONC 32 g/dl (31.0-36.0); MEAN CORPUSCULAR VOLUME 81 fL (80-96); PLATELET COUNT (AUTO) 574 K/uL (150-450); RED BLOOD CELL COUNT(AUTO) 2.95 MIL/uL (4.5-6.0); WHITE BLOOD COUNT (AUTO) 14.8 K/uL (4.3-11.0)
--- NOTE | 2020-12-30 15:47 | NUR ---
MS RN NOTES BEGAN 2ND UNIT OF PRBC. CHECKED WITH SANDRA TORRES. VITAL SIGNS CHECKED AND RECORDED. WILL CONTINUE TO MONITOR.
[2020-12-30] MEDS: ALBUMIN 25% 25 GM in PREMIX 1 EA IV SCH ×3 (15:53→21:07)
[2020-12-30] MEDS ORDERED: CELLULOSE,OXIDIZED 1 PKT EACH MC ONE (16:00)
[2020-12-30] MEDS: ACETAMINOPHEN 325 MG TABLET PO PRN (16:51)
[2020-12-30] MEDS: DAKINS QUARTER STRENGTH (0.125%) 480 ML BOTTLE TOP SCH (17:36)
--- NOTE | 2020-12-30 19:30 | NUR ---
STEAMFITTER SUPERVISOR CLOSING NOTES PATIENT AWAKE ON BED AND A/O X4. ON ROOM AIR TOLERATING WELL WITH NO COMPLAINTS OF SOB. NOT IN DISTRESS. WITH NO COMPLAINTS OF PAIN AT THIS TIME. WITH IV ACCESS AT LEFT GROIN PICC LINE WITH IVF NS AT 75ML/HR. SAFETY MEASURES IN PLACED. CALL LIGHT WITHIN REACH. BED ON LOWEST AND LOCKED POSITION. WILL ENDORSE TO NEXT SHIFT FOR SOM.
--- NOTE | 2020-12-30 20:00 | NUR ---
MS RN NOTES IN ROOM HAVING DINNER FOOD,A/O X4,BREATHING REGULAR,NOT IN ANY FORM OF DISTRESS,PRESENT IVF INFUSING WELL ON LEFT GROIN PICC LINE VIA IV PUMP.S/P POST EXCISIONAL WOUND DEBRIDEMENT LEFT HIP AND SACRAL AREA.DRESSING INTACT,NO ACTIVE BLEEDING NOTED.CONTRACTED ON BOTH LOWER EXTREMITIES.ON [employer] MATTRESS FOR SKIN MANAGEMENT.SUPRA PUBIC CATH IN PLACE DRAINING YELLOWISH URINE.WILL CONTINUE TO MONITOR STATUS.
--- NOTE | 2020-12-30 20:58 | NUR ---
MS RN NOTES PAIN MANAGEMENT C/O BILATERAL HIP PAIN 8/10 ON PAIN SCALE,DILAUDID 2MG IV GIVEN WITH ORDER
--- NOTE | 2020-12-30 23:47 | NUR ---
MS RN NOTES PAIN MANAGEMENT AWAKE,HAVING PAIN,DILAUDID 2MG IV GIVEN FOR PAIN SCALE 8/10
[2020-12-31] MEDS: ALBUMIN 25% 25 GM in PREMIX 1 EA IV SCH (03:09)
[2020-12-31] MEDS: HYDROMORPHONE INJ 2 MG/ML DISP.SYRIN IV PRN ×6 (03:18→22:41)
[2020-12-31] MEDS: IV NS 0.9% 1,000 ML IV PRN (03:34)
--- NOTE | 2020-12-31 03:34 | NUR ---
MS RN NOTES PAIN MANAGEMENT AWAKE,HAVING PAIN 8/10 ON PAIN SCALE,DILAUDID 2MG IV GIVEN ORDERED.
[2020-12-31] MEDS: AZTREONAM 2 G in IV NS 0.9% 100 ML IV SCH (04:59)
--- NOTE | 2020-12-31 05:00 | NUR ---
MS RN NOTES EZEKIEL OFFERED MORNING CARE TO PATIENT,BUT REFUSED
--- NOTE | 2020-12-31 06:29 | NUR ---
MS RN NOTES SLEPT WITH INTERVALS,ALL DUE IV ANTIBIOTICS ADMINISTERED,NO ADVERSE SIDE EFFECTS NOTED,SUPRA CATH DRAINS WITH ADEQUATE URINE OUTPUT.IN NO ACUTE DISTRESS.
--- NOTE | 2020-12-31 07:30 | NUR ---
MS RN OPENING NOTES: RECEIVED PATIENT AWAKE IN BED AND A/O X4. ON ROOM AIR TOLERATING WELL. NOT IN DISTRESS. WITH NO COMPLAINTS OF PAIN AND DISCOMFORT AT THIS TIME. ON SUPRAPUBIC CATHETER INFUSING WELL. WITH PICC LINE AT L GROIN WITH NS @75ML/HR INFUSING WELL. SAFETY MEASURES IN PLACED. BED IN LOW POSITION, CALL LIGHTS WITHIN REACH. WILL CONTINUE TO MONITOR.
[2020-12-31 08:00] VITALS: BP 127/70
[2020-12-31 08:33] LABS: BASOPHILS % (AUTO) 0.3 % (0.0-2.0); EOSINOPHILS % (AUTO) 0.7 % (0.0-6.0); HEMATOCRIT 22 % (39-51); HEMOGLOBIN 7.2 g/dL (13.5-17.5); LYMPHOCYTES # (AUTO) 0.8 K/uL (0.8-4.8); LYMPHOCYTES % (AUTO) 5.4 % (20.0-44.0); MEAN CORPUSCULAR HGB CONC 32 g/dl (31.0-36.0); MEAN CORPUSCULAR VOLUME 81 fL (80-96); MONOCYTES # (AUTO) 0.8 K/uL (0.1-1.30); MONOCYTES % (AUTO) 5.5 % (2.0-12.0); NEUTROPHILS # (AUTO) 13.7 K/uL (1.8-8.9); NEUTROPHILS % (AUTO) 88.1 % (43.0-81.0); PLATELET COUNT (AUTO) 529 K/uL (150-450); RED BLOOD CELL COUNT(AUTO) 2.77 MIL/uL (4.5-6.0); WHITE BLOOD COUNT (AUTO) 15.5 K/uL (4.3-11.0)
[2020-12-31 08:41] LABS: CALCIUM, SERUM 8.2 mg/dL (8.5-10.1); CREATININE 2.3 mg/dL (0.6-1.3); MAGNESIUM 1.5 mg/dL (1.8-2.4); PHOSPHORUS 3.8 mg/dL (2.5-4.9); POTASSIUM 3.4 mmol/L (3.5-5.1)
[2020-12-31] MEDS: PROPRANOLOL HCL 40 MG TABLET PO SCH ×2 (08:42→17:00)
[2020-12-31] MEDS: LINEZOLID RTU BAG 600 MG in PREMIX 1 EA IV SCH ×2 (08:44→21:38)
[2020-12-31] MEDS: DAKINS QUARTER STRENGTH (0.125%) 480 ML BOTTLE TOP SCH (08:45)
[2020-12-31] MEDS: THERAHONEY GEL 1.5 OZ TUBE TP SCH (08:45)
[2020-12-31] MEDS ORDERED: POTASSIUM CHLORIDE 20 MEQ TAB.PRT.SR PO ONE (10:00)
[2020-12-31] MEDS: Magnesium 1GM/D5W 100ML PREMIX 100 ML IV SCH ×2 (10:40→12:23)
[2020-12-31] MEDS ORDERED: VANCOMYCIN 1 GM in IV D5W 250 ML IV ONE (14:00)
[2020-12-31] MEDS: MEROPENEM 1 G in IV NS 0.9% 100 ML IV SCH ×2 (14:19→20:45)
--- NOTE | 2020-12-31 15:30 | NUR ---
RN NOTES PATIENT REPORTED TO HAVE ALLERGIC REACTIONS LIKE NEEDLE PRICK PAIN ON HIS BODY AFTER GIVING FIRST DOSE OF VANCOMYCIN IV. REDNESS ON FACE AND NECK NOTED. STOPPED VANCOMYCIN IV INFUSION. WILL MONITOR PATIENT.
--- NOTE | 2020-12-31 15:55 | NUR ---
RN NOTES DR. YANG ORDERED BENADRYL 50MG IV AND PEPCID 20MG IV FOR ALLERGIC REACTIONS FROM VANCOMYCIN IV.
[2020-12-31] MEDS ORDERED: FAMOTIDINE/PF INJ 20 MG/2 ML VIAL IV ONE (16:03)
[2020-12-31] MEDS ORDERED: diphenhydrAMINE HCL 50 MG/ML VIAL ONE (16:03)
[2020-12-31] MEDS: diphenhydrAMINE HCL 50 MG/ML VIAL IV PRN (16:04)
[2020-12-31] MEDS: FAMOTIDINE/PF INJ 20 MG/2 ML VIAL IV SCH ×2 (16:04→21:03)
--- NOTE | 2020-12-31 19:42 | NUR ---
MS RN CLOSING NOTES RECEIVED PATIENT AWAKE IN BED AND A/O X4. ON ROOM AIR TOLERATING WELL. NOT IN DISTRESS. WITH COMPLAINTS OF PAIN AT 7/10 PAIN SCALE. PAIN MEDS GIVEN. COMFORT MEASURES PROVIDED. ON SUPRAPUBIC CATHETER INFUSING WELL. WITH PICC LINE AT L GROIN WITH NS @75ML/HR INFUSING WELL. SAFETY MEASURES IN PLACED. BED IN LOW POSITION, CALL LIGHTS WITHIN REACH. WILL ENDORSE TO NEXT SHIFT FOR SOM.
--- NOTE | 2020-12-31 19:52 | NUR ---
MS RN OPENING NOTES: RECEIVED PATIENT AWAKE IN BED, BED IN LOW POSITION, CALL LIGHTS WITHIN REACH, NO COMPLAIN OF PAIN AND DISCOMFORT AT THIS TIME, PATIENT ON SUPRAPUBIC CATHETER INFUSING WELL, WITH PICC LINE AT L GROIN WITH NS @75ML/HR INFUSING WELL, NO SOB OR ANY RESP DISTRESS OBSERVED, PER PREVIOUS SHIFT PATIENT WAS FOUND TO BE ALLERGIC TO VANCOMYCIN, PATIENT ATB WAS CHANGED, KEPT CLEAN AN DRY ALL NEEDS MET, WILL CONTINUE TO MONITOR.
[2020-12-31 20:00] VITALS: BP 132/65
[2020-12-31] MEDS: ONDANSETRON HCL/PF 4 MG/2 ML VIAL IVP PRN (20:58)
[2020-12-31] MEDS: ACETAMINOPHEN 325 MG TABLET PO PRN (22:42)
[2021-01-01] MEDS: HYDROMORPHONE INJ 2 MG/ML DISP.SYRIN IV PRN ×7 (01:41→23:29)
[2021-01-01] MEDS: IV NS 0.9% 1,000 ML IV PRN ×2 (03:11→17:59)
[2021-01-01 04:04] VITALS: BP 132/65
[2021-01-01] MEDS: MEROPENEM 1 G in IV NS 0.9% 100 ML IV SCH ×3 (05:37→20:35)
[2021-01-01 06:36] LABS: BASOPHILS # (AUTO) 0.1 K/uL (0.0-0.2); BASOPHILS % (AUTO) 0.5 % (0.0-2.0); EOSINOPHILS % (AUTO) 1.3 % (0.0-6.0); HEMATOCRIT 24 % (39-51); HEMOGLOBIN 7.5 g/dL (13.5-17.5); LYMPHOCYTES # (AUTO) 1.3 K/uL (0.8-4.8); MEAN CORPUSCULAR HGB CONC 32 g/dl (31.0-36.0); MEAN CORPUSCULAR VOLUME 82 fL (80-96); MONOCYTES # (AUTO) 0.5 K/uL (0.1-1.30); MONOCYTES % (AUTO) 3.7 % (2.0-12.0); NEUTROPHILS # (AUTO) 12.2 K/uL (1.8-8.9); NEUTROPHILS % (AUTO) 85.5 % (43.0-81.0); PLATELET COUNT (AUTO) 572 K/uL (150-450); RED BLOOD CELL COUNT(AUTO) 2.86 MIL/uL (4.5-6.0); WHITE BLOOD COUNT (AUTO) 14.2 K/uL (4.3-11.0)
[2021-01-01 06:42] LABS: CALCIUM, SERUM 7.6 mg/dL (8.5-10.1); CREATININE 2.5 mg/dL (0.6-1.3); MAGNESIUM 1.9 mg/dL (1.8-2.4); POTASSIUM 3.8 mmol/L (3.5-5.1)
--- NOTE | 2021-01-01 07:33 | NUR ---
MS RN CLOSING NOTES: PATIENT SLEEP IN BED COMFORTABLY, AROUSABLE TO VERBAL STIMULI, MARIANO IN LOW POSITION, CALL LIGHTS WITHIN REACH, NO COMPLAIN OF PAIN A ND DISCOMFORT AT THIS TIME, WITH PICC LINE AT L GROIN PATENT KEPT CLEAN AT ALL TIME, ON ROOM AIR, NO SOB NOTED, PATIENT KEPT CLEAN AND DRY ALL NEEDS MET, ENDORSE TO INCOMING SHIFT.
--- NOTE | 2021-01-01 07:35 | NUR ---
RN OPENING NOTES Patient seen comfortably lying in bed, no SOB, no apparent distress noted, breathing even and unlabored, denies any pain or discomfort at this time. Call light left within reach, safety precautions in place, brakes locked, side rails up X 2, will monitor closely for any changes.
[2021-01-01] MEDS: FAMOTIDINE/PF INJ 20 MG/2 ML VIAL IV SCH ×2 (08:30→20:34)
[2021-01-01] MEDS: LINEZOLID RTU BAG 600 MG in PREMIX 1 EA IV SCH ×2 (08:30→20:34)
[2021-01-01] MEDS: PROPRANOLOL HCL 40 MG TABLET PO SCH ×2 (08:31→17:00)
[2021-01-01] MEDS: ONDANSETRON HCL/PF 4 MG/2 ML VIAL IVP PRN (09:59)
[2021-01-01] MEDS: diphenhydrAMINE HCL 50 MG/ML VIAL IV PRN ×2 (10:00→20:48)
[2021-01-01] MEDS: DAKINS QUARTER STRENGTH (0.125%) 480 ML BOTTLE TOP SCH (10:08)
[2021-01-01] MEDS: THERAHONEY GEL 1.5 OZ TUBE TP SCH (10:09)
[2021-01-01] MEDS ORDERED: IV NS 0.9% 1,000 ML IV ONE (17:30)
--- NOTE | 2021-01-01 18:53 | NUR ---
RN CLOSING NOTES Patient lying in bed, AO x 4, able to make needs known can follow simple commands, no SOB, breathing even and unlabored. Due medications given per MD order, pain medications given when non pharmacological measures ineffective. Patient also has suprapubic catheter draining clear yellowish urine free from any sediments, no hematuria, patient denies any unusual sensation, no unusual discharge, no unusual odor noted. Patient on monitoring for elevated temperature, none noted during shift. Call light left within reach, all needs attended, kept clean and dry, safety precautions maintained, brakes locked, side rails up X 2, will endorse to next shift for continuity of care.
--- NOTE | 2021-01-01 19:30 | NUR ---
MS RN OPENING RECEIVED PATIENT ALERT/ORIENTED X4. NO APPARENT DISTRESS ON ROOM AIR. C/O PAIN-- WILL BE MANAGED. IV NS RUNNING @75ML/HR IN L. GROIN PICC. SUPRAPUBIC CATH DRAINING CLEAR, YELLOW URINE. SAFETY IN PLACE. WILL CONT. TO MONITOR.
[2021-01-01 20:00] VITALS: BP 128/70
[2021-01-01] MEDS: ACETAMINOPHEN 325 MG TABLET PO PRN (20:33)
--- NOTE | 2021-01-01 21:01 | NUR ---
patient exhibiting low grade fever of 100.3f. Given tylenol 650 mg PRN for patient refuses cooling measures. will cont. to monitor.
[2021-01-02] MEDS: HYDROMORPHONE INJ 2 MG/ML DISP.SYRIN IV PRN ×8 (02:31→23:35)
--- NOTE | 2021-01-02 02:37 | NUR ---
fever has gone down to 99.3 f. continuing cooling measures.
--- NOTE | 2021-01-02 05:03 | NUR ---
Dilaudid given at this time before dressing change.
[2021-01-02] MEDS: MEROPENEM 1 G in IV NS 0.9% 100 ML IV SCH ×3 (05:45→20:22)
--- NOTE | 2021-01-02 06:49 | NUR ---
MS RN CLOSING NOTE PATIENT IN BED WITH EYES CLOSED, EASY TO AROUSE. A/OX4. DOES NOT EXHIBIT APPARENT DISTRESS ON ROOM AIR. PAIN MANAGED WITH MEDICATIONS. NS RUNNING @75ML/HR. ALL NEEDS ATTENDED. ALL SCHEDULED MEDICATIONS ADMINISTERED. DRESSINGS CHANGED, WOUND TX DONE. NO SIGNIFICANT CHANGE SINCE LAST SHIFT. SAFETY KEPT IN PLACE THE WHOLE SHIFT. WILL ENDORSE CARE TO MORNING SHIFT RN.
[2021-01-02 06:54] LABS: BASOPHILS # (AUTO) 0.1 K/uL (0.0-0.2); BASOPHILS % (AUTO) 0.5 % (0.0-2.0); HEMATOCRIT 24 % (39-51); HEMOGLOBIN 7.5 g/dL (13.5-17.5); LYMPHOCYTES # (AUTO) 1.5 K/uL (0.8-4.8); LYMPHOCYTES % (AUTO) 9.9 % (20.0-44.0); MEAN CORPUSCULAR HGB CONC 31 g/dl (31.0-36.0); MEAN CORPUSCULAR VOLUME 82 fL (80-96); MONOCYTES # (AUTO) 0.7 K/uL (0.1-1.30); NEUTROPHILS # (AUTO) 12.4 K/uL (1.8-8.9); NEUTROPHILS % (AUTO) 82.6 % (43.0-81.0); PLATELET COUNT (AUTO) 577 K/uL (150-450); RED BLOOD CELL COUNT(AUTO) 2.92 MIL/uL (4.5-6.0)
--- NOTE | 2021-01-02 07:31 | NUR ---
MS RN OPENING NOTE Pt is asleep, arousable to stimuli, no respiratory distress, no SOB. Suprapubic catheter in place, draining well. PICC line in place with no s/sx of infiltration running IV hydration. Safety precautions implemented, bed locked in lowest position, call light within reach.
[2021-01-02 07:41] LABS: CREATININE 2.3 mg/dL (0.6-1.3); MAGNESIUM 1.8 mg/dL (1.8-2.4); PHOSPHORUS 4.6 mg/dL (2.5-4.9); POTASSIUM 4.4 mmol/L (3.5-5.1)
[2021-01-02] MEDS: LINEZOLID RTU BAG 600 MG in PREMIX 1 EA IV SCH ×2 (08:03→21:27)
[2021-01-02] MEDS: FAMOTIDINE/PF INJ 20 MG/2 ML VIAL IV SCH ×2 (08:03→20:22)
[2021-01-02] MEDS: PROPRANOLOL HCL 40 MG TABLET PO SCH ×2 (09:17→17:07)
[2021-01-02] MEDS: THERAHONEY GEL 1.5 OZ TUBE TP SCH (09:18)
[2021-01-02] MEDS: DAKINS QUARTER STRENGTH (0.125%) 480 ML BOTTLE TOP SCH (09:18)
[2021-01-02] MEDS: IV NS 0.9% 1,000 ML IV PRN (11:50)
--- NOTE | 2021-01-02 12:19 | NUR ---
RN NOTE Reported to DNP blood culture results gram positive cocci, gram negative rods. DNP aware, will come to round, patient remains on IV ABx.
--- NOTE | 2021-01-02 18:55 | NUR ---
RN CLOSING NOTE Pt is A/O X4, no respiratory distress, no SOB. Suprapubic catheter in place draining wel. PICC line femoral in place with no s/sx of infiltration. Running IV NS @100cc/hr. Complains of chronic pain on wounds relieved after administration of dilaudid PRN. Wound care rendered, AM/PM care rendered. Safety precautions implemented, bed locked in lowest position, call light within reach.
--- NOTE | 2021-01-02 19:33 | NUR ---
RN OPENING NOTE PATIENT IN BED, AWAKE, WATCHING ON TABLET. PATIENT IS ABLE TO MAKE NEEDS KNOWN, A/O X 4. PATIENT HAS A SUPRAPUBIC CATHETER PRESENT. PICC LINE ON THE R GROIN HAS NS @ 100 ML/HR RUNNING. PATIENT DOES NOT COMPLAIN OF PAIN AT THIS TIME. BREATHING EVEN AND UNLABORED, SAFETY MEASURES IN PLACE: BED LOCKED AND IN LOWEST POSITION, CALL LIGHT WITHIN REACH, SIDE RAILS UP. WILL MONITOR PATIENT CLOSELY.
[2021-01-02 20:00] VITALS: BP 106/63
--- NOTE | 2021-01-02 20:35 | NUR ---
RN NOTE DILAUDID GIVEN FOR GENERALIZED BODY PAIN OF 8/10. WILL REASSESS MED EFFECTIVENESS.
--- NOTE | 2021-01-02 23:40 | NUR ---
RN NOTE DILAUDID GIVEN FOR GENERALIZED BODY PAIN OF 10/10. WILL REASSESS MED EFFECTIVENESS.
[2021-01-03] MEDS: ACETAMINOPHEN 325 MG TABLET PO PRN (00:33)
--- NOTE | 2021-01-03 00:37 | NUR ---
RN NOTE TYLENOL GIVEN FOR TEMP OF 100.0. REFUSED COOLING MEASURES. WILL MONITOR PATIENT CLOSELY.
[2021-01-03] MEDS: HYDROMORPHONE INJ 2 MG/ML DISP.SYRIN IV PRN ×7 (02:41→21:37)
--- NOTE | 2021-01-03 02:45 | NUR ---
RN NOTE DILAUDID GIVEN FOR GENERALIZED BODY PAIN OF 10/10. WILL REASSESS MED EFFECTIVENESS.
[2021-01-03] MEDS: IV NS 0.9% 1,000 ML IV PRN (05:47)
[2021-01-03] MEDS: MEROPENEM 1 G in IV NS 0.9% 100 ML IV SCH ×3 (05:47→21:36)
[2021-01-03 06:24] LABS: BASOPHILS # (AUTO) 0.1 K/uL (0.0-0.2); BASOPHILS % (AUTO) 0.3 % (0.0-2.0); EOSINOPHILS % (AUTO) 2.1 % (0.0-6.0); HEMATOCRIT 25 % (39-51); HEMOGLOBIN 7.9 g/dL (13.5-17.5); LYMPHOCYTES # (AUTO) 1.7 K/uL (0.8-4.8); LYMPHOCYTES % (AUTO) 9.7 % (20.0-44.0); MEAN CORPUSCULAR HGB CONC 32 g/dl (31.0-36.0); MEAN CORPUSCULAR VOLUME 82 fL (80-96); MONOCYTES # (AUTO) 0.9 K/uL (0.1-1.30); MONOCYTES % (AUTO) 5.2 % (2.0-12.0); NEUTROPHILS # (AUTO) 14.2 K/uL (1.8-8.9); NEUTROPHILS % (AUTO) 82.7 % (43.0-81.0); PLATELET COUNT (AUTO) 612 K/uL (150-450); RED BLOOD CELL COUNT(AUTO) 3.01 MIL/uL (4.5-6.0); WHITE BLOOD COUNT (AUTO) 17.1 K/uL (4.3-11.0)
--- NOTE | 2021-01-03 07:32 | NUR ---
RN CLOSING NOTE PATIENT IN BED, AWAKE. PATIENT ABLE TO MAKE NEEDS KNOWN. A/O X 4. WOUND CARE PROVIDED, ALL MEDS GIVEN. ALL ORDERS CARRIED OUT, ALL NEEDS MET AND ATTENDED. SAFETY MEASURES MAINTAINED. PAIN MANAGED WITH DILAUDID Q3H. ENDORSED TO DAY SHIFT NURSE FOR SOM.
[2021-01-03 07:33] LABS: MAGNESIUM 1.5 mg/dL (1.8-2.4); PHOSPHORUS 4.5 mg/dL (2.5-4.9); POTASSIUM 4.5 mmol/L (3.5-5.1)
[2021-01-03 07:52] LABS: CREATININE 2.1 mg/dL (0.6-1.3)
[2021-01-03 08:00] VITALS: BP 130/72
[2021-01-03] MEDS: FAMOTIDINE/PF INJ 20 MG/2 ML VIAL IV SCH ×2 (09:09→21:36)
[2021-01-03] MEDS: DAKINS QUARTER STRENGTH (0.125%) 480 ML BOTTLE TOP SCH (09:09)
[2021-01-03] MEDS: PROPRANOLOL HCL 40 MG TABLET PO SCH ×2 (09:09→16:59)
[2021-01-03] MEDS: THERAHONEY GEL 1.5 OZ TUBE TP SCH (09:10)
[2021-01-03] MEDS: LINEZOLID RTU BAG 600 MG in PREMIX 1 EA IV SCH ×2 (09:15→22:08)
[2021-01-03] MEDS ORDERED: Magnesium 1GM/D5W 100ML PREMIX 100 ML IV SCH (09:30)
[2021-01-03] MEDS: diphenhydrAMINE HCL 50 MG/ML VIAL IV PRN (11:08)
[2021-01-03] MEDS ORDERED: AMIKACIN IV ONE (16:00)
[2021-01-03] MEDS ORDERED: D5W IV ONE (16:00)
[2021-01-03] MEDS ORDERED: DOSING PER PHARMACY-AMIKACI IV XX ONE (16:00)
--- NOTE | 2021-01-03 18:27 | NUR ---
MS RN CLOSING NOTE PATIENT CURRENTLY LYING IN BED, AWAKE. A/O X4. STABLE ON ROOM AIR - NO SOB NOTED. NO DISTRESS/DISCOMFORT NOTED. IV ACCESS TO LEFT GROIN - PICC LINE - RUNNING NS @ 100ML/HR. SUPRAPUBIC CATH NOTED - PATENT AND INTACT. PAIN MANAGED WITH DILAUDID Q3H. SAFETY MEASURES IN PLACE. CALL LIGHT WITHIN REACH. WILL ENDORSE TO [employer]GNOS DEVELOPER NURSE FOR SOM.
[2021-01-03 20:00] VITALS: BP 120/62
--- NOTE | 2021-01-03 20:00 | NUR ---
MS RN OPENING NOTES: RECEIVED PATIENT AWAKE, PLACED IN BED COMFORTABLY, BED IN LOW POSITION, CALL LIGHTS WITHIN REACH, NO COMPLAIN OF PAIN AND DISCOMFORT AT THIS TIEM, PATIENT WAS A/O4 BED BOUND, ABLE TO MAKE NEEDS KNOWN, PLASENCIA CATHETER, WITH PICC LINE AT LEFT GROIN ON NSS@ 100ML PER HOUR INFUSING WELL, PATIENT IS UNDER PAIN MANAGEMENT, KEPT CLEAN AND DRY, ALL NEEDS MET, WILL CONTINUE TO MONITOR
[2021-01-04] VITALS (29 sets, daily range): BP systolic 98–174; BP diastolic 30–115
[2021-01-04] MEDS: HYDROMORPHONE INJ 2 MG/ML DISP.SYRIN IV PRN ×8 (00:38→23:08)
[2021-01-04] MEDS: IV NS 0.9% 1,000 ML IV PRN ×2 (00:38→18:34)
[2021-01-04] MEDS: MEROPENEM 1 G in IV NS 0.9% 100 ML IV SCH ×3 (05:19→20:49)
[2021-01-04 06:58] LABS: BASOPHILS # (AUTO) 0.1 K/uL (0.0-0.2); BASOPHILS % (AUTO) 0.4 % (0.0-2.0); EOSINOPHILS % (AUTO) 2.2 % (0.0-6.0); HEMATOCRIT 27 % (39-51); HEMOGLOBIN 8.1 g/dL (13.5-17.5); LYMPHOCYTES # (AUTO) 1.4 K/uL (0.8-4.8); LYMPHOCYTES % (AUTO) 9.7 % (20.0-44.0); MEAN CORPUSCULAR HGB CONC 31 g/dl (31.0-36.0); MEAN CORPUSCULAR VOLUME 84 fL (80-96); MONOCYTES # (AUTO) 0.9 K/uL (0.1-1.30); MONOCYTES % (AUTO) 5.8 % (2.0-12.0); NEUTROPHILS # (AUTO) 12.3 K/uL (1.8-8.9); NEUTROPHILS % (AUTO) 81.9 % (43.0-81.0); PLATELET COUNT (AUTO) 536 K/uL (150-450); RED BLOOD CELL COUNT(AUTO) 3.16 MIL/uL (4.5-6.0)
--- NOTE | 2021-01-04 07:15 | NUR ---
MS RN OPENING NOTE RECEIVED PATIENT ALERT AND ORIENTED X 4. PATIENT WITH NO COMPLAIN OF SEVERE PAIN OR DISCOMFORT. PATIENT IS ON PAIN MEDICATION EVERY 3 HOURS ENDORSED. PATIENT IS ON ROOM AIR WITH EQUAL AND UNLABORED RESPIRATION SATURATING AT 97%. PAITNET WITH PICC LINEON THE LEFT GROIN ON NS RUNNING AT 100ML PER HOUR INFUSING WELL. WITH SUPRAPUBIC CATHETER TO URINE BAG, INFUSING WELL. COMFORT MEASURES PROVIDED. BED ON LOWEST AND LOCKED POSITION, SIDERAILS RAISED FOR SAFETY. CALL LIGHT WITHIN REACH AT ALL TIMES. WILL CONTINUE TO MONITOR PATIENT.
[2021-01-04 07:39] LABS: CALCIUM, SERUM 8.1 mg/dL (8.5-10.1); MAGNESIUM 1.8 mg/dL (1.8-2.4); PHOSPHORUS 4.4 mg/dL (2.5-4.9); POTASSIUM 4.5 mmol/L (3.5-5.1)
--- NOTE | 2021-01-04 07:45 | NUR ---
MS RN CLOSING NOTES: PATIENT AWAKE IN BED, BED IN LOW POSITION, CALL LIGHTS WITHIN REACH, NO COMPLAIN OF PAIN AND DISCOMFORT AT THIS TIME. SKIN ISSUES AT BLE AND BUTTOCKS CLEAN AND COVERED WITH BANDAGE, WITH PICC LINE AT LEFT GROIN INFUSING WELL, SCHEDULE TO GO DOWN TO ICU FOR ANTIBIOTIC MANAGEMENT, PATIENT KEPT CLEAN AND DRY, ALL NEEDS MET, ENDORSE TO INCOMING SHIFT.
[2021-01-04] MEDS: PROPRANOLOL HCL 40 MG TABLET PO SCH ×2 (08:25→17:11)
[2021-01-04] MEDS: LINEZOLID RTU BAG 600 MG in PREMIX 1 EA IV SCH ×2 (08:28→21:31)
[2021-01-04] MEDS: FAMOTIDINE/PF INJ 20 MG/2 ML VIAL IV SCH ×2 (08:28→20:12)
[2021-01-04] MEDS ORDERED: diphenhydrAMINE HCL 50 MG/ML VIAL IV ONE (08:30)
[2021-01-04] MEDS ORDERED: FAMOTIDINE/PF INJ 20 MG/2 ML VIAL IV ONE (08:30)
[2021-01-04] MEDS ORDERED: methylPREDNISolone SOD SUCC 125 MG/2ML VIAL IV ONE (08:30)
--- NOTE | 2021-01-04 08:50 | NUR ---
MS RN NOTE BESIDE WOUND CARE IN SACRAL WOUND. DONE BY BHARGAVI CALLEJAS. PROCEDURE TOLERATED WELL. WILL CONTINUE TO MONITOR PATIENT.
[2021-01-04] MEDS ORDERED: MISCELLANEOUS MED 1 EA EA XX ONE (10:00)
--- NOTE | 2021-01-04 10:40 | NUR ---
MS RN NOTE PATIENT FOR TRANSFER TO ICU ORDERED. PHONE ENDORSEMENT GIVEN TO ANAID BEFORE TRANSFER.
--- NOTE | 2021-01-04 10:45 | NUR ---
RN NOTE PHONE REPORT GIVEN BY SANDRA GREEN
[2021-01-04] MEDS ORDERED: AMPICILLIN IV ONE ×2 (11:00→12:00)
[2021-01-04] MEDS ORDERED: NS 0.9% IV ONE ×2 (11:00→12:00)
[2021-01-04] MEDS ORDERED: SULBACTAM IV ONE ×2 (11:00→12:00)
--- NOTE | 2021-01-04 11:00 | NUR ---
MS RN NOTE PATIENT TRANSFERRED TO ICU BED 255 ORDERED FOR MONITORING. IN STABLE CONDITION. PATIENT ENDORSED ACCORDINGLY.
--- NOTE | 2021-01-04 11:00 | NUR ---
PURCHASING/RECEIVING NOTE PT TRANSFERRED FROM [facility] FOR CLOSE OBSERVATION FOR IV ABX ADMINISTRATION. PT A/Ox4, BREATHING RA SPO2 96-98%, NO S/S OF RESP DISTRESS OR SOB. PT STATES PAIN IN BUTTOCKS AND BILAT EXRTEMITIES CONSTANT, WILL ADMIN PAIN MEDS ORDERED. PT NSR WITH ELEVATED T WAVE HR 80s. PT MULTIPLE WOUNDS NOTED: LT BUTTOCKS, BLE/FEET/ANKLES. PT SUPRAPUBIC CATHETER DRAINING SEDIMENT CARL URINE TO GRAVITY, LT GROIN PICC, 1 OF 3 PIGTAILS OCCLUDED, RUNNING NS 100 ML/HR, NO S/S OF INFECTION/INFILTRATION. PT BLE CONTRACTURES NOTED. ALL PT SAFETY PRECAUTIONS IN PLACE, WILL CONT TO MONITOR
[2021-01-04] MEDS: DAKINS QUARTER STRENGTH (0.125%) 480 ML BOTTLE TOP SCH (11:55)
[2021-01-04] MEDS: THERAHONEY GEL 1.5 OZ TUBE TP SCH (11:56)
--- NOTE | 2021-01-04 13:00 | NUR ---
RN NOTE PT TOLERATED FIRST ADMIN 1GRAM UNASYN WITH NO ADVERSE REACTION. PER ORDER, WILL ADMIN 2ND DOSE OF 2GRAM UNASYN ORDERED. WILL CONT TO MONITOR CLOSELY
[2021-01-04] MEDS: diphenhydrAMINE HCL 50 MG/ML VIAL IV SCH ×2 (17:12→23:57)
[2021-01-04] MEDS: SULBACTAM IJ SCH (18:30)
[2021-01-04] MEDS: AMPICILLIN IJ SCH (18:30)
[2021-01-04] MEDS: NS 0.9% IJ SCH (18:30)
--- NOTE | 2021-01-04 19:00 | NUR ---
HIGH SCHOOL SCIENCE TEACHER CLOSING NOTE PT TOLERATED 3 BAGS OF UNASYN WITH NO ADVERSE/ALLERGIC REACTIONS. BENADRYL GIVEN 1 HR PRIOR TO ADMIN OF UNASYN. ALL WOUND CARE PERFORMED ORDERED. PT HAS NS @ 100 ML/HR RUNNING. ALL PT SAFETY PRECAUTIONS IN PLACE, SOM ENDORSED TO LASTING MACHINE OPERATOR BED RN
--- NOTE | 2021-01-04 19:30 | NUR ---
RN NOTES, PATIENT IN BED A/O X4, ABLE TO VERBALIZE NEEDS AND CONCERNS, AT ROOM AIR NO SOB/ACUTE DISTRESS NOTED, NO COMPLAIN OF PAIN AT THIS TIME, NSR WIT BBB WITH HR IN 90S, PICC LINE AT LEFT GROIN INFUSING WELL, AND PATIENT TOLERATED WELL, DRY AN CLEAN AT THIS TIME, NO ALLERGIC REACTION NOTED, ALL NEEDS ATTENDED, WILL CONTINUE TO MONITOR CLOSELY.
[2021-01-04] MEDS ORDERED: FAMOTIDINE (20 MG) 20 MG TABLET PO SCH (21:00)
[2021-01-05] VITALS (17 sets, daily range): BP systolic 110–135; BP diastolic 50–81
[2021-01-05] MEDS: ONDANSETRON HCL/PF 4 MG/2 ML VIAL IVP PRN (00:29)
[2021-01-05] MEDS: AMPICILLIN IJ SCH ×4 (01:00→19:08)
[2021-01-05] MEDS: NS 0.9% IJ SCH ×4 (01:00→19:08)
[2021-01-05] MEDS: SULBACTAM IJ SCH ×4 (01:00→19:08)
[2021-01-05] MEDS: HYDROMORPHONE INJ 2 MG/ML DISP.SYRIN IV PRN ×6 (02:22→21:00)
[2021-01-05 04:11] LABS: BASOPHILS % (AUTO) 0.1 % (0.0-2.0); HEMATOCRIT 25 % (39-51); HEMOGLOBIN 7.9 g/dL (13.5-17.5); LYMPHOCYTES % (AUTO) 7.6 % (20.0-44.0); MEAN CORPUSCULAR HGB CONC 32 g/dl (31.0-36.0); MEAN CORPUSCULAR VOLUME 82 fL (80-96); MONOCYTES # (AUTO) 0.4 K/uL (0.1-1.30); NEUTROPHILS # (AUTO) 11.6 K/uL (1.8-8.9); NEUTROPHILS % (AUTO) 89.3 % (43.0-81.0); PLATELET COUNT (AUTO) 523 K/uL (150-450); RED BLOOD CELL COUNT(AUTO) 3.05 MIL/uL (4.5-6.0)
[2021-01-05] MEDS: MEROPENEM 1 G in IV NS 0.9% 100 ML IV SCH ×3 (04:44→20:58)
[2021-01-05 04:51] LABS: CALCIUM, SERUM 7.9 mg/dL (8.5-10.1); CREATININE 2.4 mg/dL (0.6-1.3); MAGNESIUM 1.9 mg/dL (1.8-2.4); PHOSPHORUS 5.2 mg/dL (2.5-4.9); POTASSIUM 4.4 mmol/L (3.5-5.1)
[2021-01-05] MEDS: IV NS 0.9% 1,000 ML IV PRN (06:19)
--- NOTE | 2021-01-05 06:58 | NUR ---
RN NOTES, PATIENT IN BED A/O X4, AT ROOM AIR NO SOB/ACUTE DISTRESS NOTED, NO COMPLAIN OF PAIN AT THIS TIME, NSR WIT BBB WITH HR IN 80S, PICC LINE AT LEFT GROIN AND IVF INFUSING WELL, AWAITING PHARMACY TO DELIVER DOSE OF UNASYN DUE AT 0700, MULTIPLE CALLS, STILL CLOSE, HOLDING BENADRYL FOR NOW MEDICATION NOT AVAILABLE AT THIS TIME, JENNIFER CHARGE NURSE AWARE, DRY AND CLEAN, ALL NEEDS ATTENDED, NO SIGNIFICAN CHANGE IN CONDITION DURING THE NIGHT, WILL ENDORSE CONTINUITY OF CARE TO ONCOMING NURSE.
[2021-01-05] MEDS: diphenhydrAMINE HCL 50 MG/ML VIAL IV SCH ×4 (07:05→23:33)
--- NOTE | 2021-01-05 07:30 | NUR ---
ICU OPENING RN NOTE PT SEMIFOWLERS A/Ox4, BREATHING RA SPO2 94%, NO S/S OF RESP DISTRESS OR SOB. PT STATES PAIN IN BUTTOCKS AND BILAT EXRTEMITIES CONSTANT, WILL ADMIN PAIN MEDS ORDERED. PT NSR HR 80s. PT MULTIPLE WOUNDS NOTED: LT BUTTOCKS, BLE/FEET/ANKLES. PT SUPRAPUBIC CATHETER DRAINING SEDIMENT CARL URINE TO GRAVITY, LT FEMORAL PICC, 2 OF 3 PIGTAILS OCCLUDED, RUNNING NS 100 ML/HR, NO S/S OF INFECTION/INFILTRATION. PT BLE CONTRACTURES NOTED. ALL PT SAFETY PRECAUTIONS IN PLACE, WILL CONT TO MONITOR
[2021-01-05] MEDS: PROPRANOLOL HCL 40 MG TABLET PO SCH ×2 (08:46→16:30)
[2021-01-05] MEDS: FAMOTIDINE/PF INJ 20 MG/2 ML VIAL IV SCH ×2 (08:47→20:59)
[2021-01-05] MEDS: THERAHONEY GEL 1.5 OZ TUBE TP SCH (09:15)
[2021-01-05] MEDS: DAKINS QUARTER STRENGTH (0.125%) 480 ML BOTTLE TOP SCH (09:16)
[2021-01-05] MEDS: LINEZOLID RTU BAG 600 MG in PREMIX 1 EA IV SCH ×2 (09:25→21:22)
--- NOTE | 2021-01-05 09:30 | NUR ---
RN NOTE PT BEDSIDE REPORT GIVEN TO SANDRA ROLLINS FOR SOM, PT MORNING MEDS GIVEN, PT IN STABLE CONDITION FOR TRANSFER TO MED/SURG, ALL PT SAFETY PRECAUTIONS IN PLACE. TRANSFERRED WITH SANDRA ROLLINS
--- NOTE | 2021-01-05 09:42 | NUR ---
MS RN NOTES RECEIVED PATIENT FROM ICU, AWAKE AND A/O X4. ON ROOM AIR TOLERATING WELL. NO SOB. NOT IN DISTRESS. WITH NO COMPLAINTS OF PAIN AT THIS TIME. WITH IV ACCESS AT LEFT GROIN PICC LINE, PATENT AND INTACT WITH IVF NS AT 100ML/HR. VITAL SIGNS TAKEN. MADE COMFORTABLE ON BED. SAFETY MEASURES IN PLACED. CALL LIGHT WITHIN REACH. BED ON LOWEST AND LOCKED POSITION, SIDE RAILS UP X2. WILL CONTINUE TO MONITOR.
--- NOTE | 2021-01-05 18:51 | NUR ---
MS RN NOTES PATIENT RESTING ON BED, AWAKE AND A/O X4. ON ROOM AIR TOLERATING WELL. NO SOB. NOT IN DISTRESS. WITH NO COMPLAINTS OF PAIN AT THIS TIME. WITH IV ACCESS AT LEFT GROIN PICC LINE, PATENT AND INTACT WITH IVF NS AT 100ML/HR. VITAL SIGNS TAKEN. MADE COMFORTABLE ON BED. SAFETY MEASURES IN PLACED. CALL LIGHT WITHIN REACH. BED ON LOWEST AND LOCKED POSITION, SIDE RAILS UP X2. WILL ENDORSE TO NEXT SHIFT FOR SOM.
--- NOTE | 2021-01-05 19:30 | NUR ---
RN OPENING NOTES: RECEIVED PT A/OX4 IN BED RESTING COMFORTABLY. PATIENT IN NO S/SX OF ACUTE DISTRESS AT THIS TIME. NO SOB NOTED. PATIENT'S BREATHING IS EVEN AND UNLABORED. PATIENT ON RA; SATING >95% AT THR TIME OF RECEIVED.PT ON MS STATUS. PATIENT ON REGULAR DIET; TOLERATES WELL. NOTED IV SITE ON LFEMORAL PICC LINE ; PATENT, INTACT AND FLUSHING WELL; NO S/S OF INFECTION OR INFILTRATION. WITH IV FLUID RUNNING ORDERED. PLASENCIA CATH IN PLACE, MODERATE URINE OUTPUT NOTED. ON SPECIALTY MATTRESS. SAFETY MEASURES HAVE BEEN PROVIDED AND IMPLEMENTED. PATIENT BED ALARM IS ON. HEAD OF BED ELEVATED. BED IS LOCKED, IN LOWEST POSITION AND SIDE RAILS UP. CALL LIGHT WITHIN REACH OF THE PATIENT. APPLICABLE ISOLATION PRECAUTIONS IN PLACE. WILL CONTINUE TO MONITOR AND REASSESS FOR ANY CHANGES AND WILL CARRY OUT ANY ONGOING AND ACTIVE MD ORDER. Addendum: 01/06/21 at 0623 by RADHA BURKETT RN CORRECTION PT HAS A SUPRAPUBIC CATHETER.
--- NOTE | 2021-01-06 | NUR ---
RN NOTES PATIENT REMAINED TO BE IN NO SIGNS OF ACUTE RESPIRATORY DISTRESS WILL CONTINUE TO MONITOR AND REASSESS FOR ANY CHANGES THROUGHOUT THE SHIFT.
[2021-01-06] MEDS: SULBACTAM IJ SCH ×4 (00:30→18:11)
[2021-01-06] MEDS: AMPICILLIN IJ SCH ×4 (00:30→18:11)
[2021-01-06] MEDS: NS 0.9% IJ SCH ×4 (00:30→18:11)
[2021-01-06] MEDS: HYDROMORPHONE INJ 2 MG/ML DISP.SYRIN IV PRN ×8 (03:01→22:01)
[2021-01-06] MEDS: MEROPENEM 1 G in IV NS 0.9% 100 ML IV SCH ×3 (04:00→20:09)
[2021-01-06] MEDS: diphenhydrAMINE HCL 50 MG/ML VIAL IV SCH ×3 (06:00→20:09)
[2021-01-06] MEDS: IV NS 0.9% 1,000 ML IV PRN (06:00)
--- NOTE | 2021-01-06 06:44 | NUR ---
RN CLOSING NOTE: PATIENT REMAINS IN ROOM IN NO SIGNS OF RESPIRATORY DISTRESS, PATIENT STILL ON ROOM AIR;TOLERATING WELL SATURATING @ >95% SP02. SAFETY MEASURES IMPLEMENTED, BED IN LOWEST POSITION, LOCKED, SIDE RAILS UP, CALL LIGHT WITHIN REACH. ALL NEEDS AND ORDERS ADDRESSED DURING THE SHIFT. IV ACCESS MAINTAINED INTACT, SECURED AND FLUSHING WELL. ALL DUE MEDS GIVEN ORDERED & SCHEDULED ; PATIENT TOLERATED WELL. PATIENT KEPT CLEAN AND COMFORTABLE WITHIN THE SHIFT. PATIENT ENDORSED TO INCOMING SHIFT RN WITH STABLE VITAL SIGN AND FOR CONTINUITY OF CARE.
[2021-01-06 06:45] LABS: BASOPHILS # (AUTO) 0.1 K/uL (0.0-0.2); BASOPHILS % (AUTO) 0.6 % (0.0-2.0); HEMATOCRIT 25 % (39-51); LYMPHOCYTES # (AUTO) 1.8 K/uL (0.8-4.8); LYMPHOCYTES % (AUTO) 12.8 % (20.0-44.0); MEAN CORPUSCULAR HGB CONC 32 g/dl (31.0-36.0); MEAN CORPUSCULAR VOLUME 83 fL (80-96); MONOCYTES # (AUTO) 0.7 K/uL (0.1-1.30); MONOCYTES % (AUTO) 5.1 % (2.0-12.0); NEUTROPHILS # (AUTO) 11.2 K/uL (1.8-8.9); NEUTROPHILS % (AUTO) 79.5 % (43.0-81.0); PLATELET COUNT (AUTO) 482 K/uL (150-450); RED BLOOD CELL COUNT(AUTO) 3.04 MIL/uL (4.5-6.0); WHITE BLOOD COUNT (AUTO) 14.1 K/uL (4.3-11.0)
--- NOTE | 2021-01-06 06:49 | NUR ---
RN NOTES CALLED PHARMACY AND F/U FOR MEDICATION (UNASYN) DUE AT 0700; STAFF SAID THEYWILLSEND IT RIGHT AWAY; PHARMACY AWARE THAT BENADRYL WAS GIVEN AT 0600.[employer] MADE AWARE. WILL ENDORSE TO AM SHIFT FOR FOLLOW THROUGH.
[2021-01-06 07:20] LABS: CALCIUM, SERUM 7.7 mg/dL (8.5-10.1); CREATININE 2.1 mg/dL (0.6-1.3); MAGNESIUM 1.6 mg/dL (1.8-2.4); PHOSPHORUS 4.4 mg/dL (2.5-4.9); POTASSIUM 4.7 mmol/L (3.5-5.1)
--- NOTE | 2021-01-06 07:28 | NUR ---
MS RN OPENING NOTES RECEIVED PATIENT IN BED ASLEEP, EASILY AWAKENS TO STIMULI. A/OX4. ABLE TO MAKE NEEDS KNOWN, DENIES PAIN OR ANY DISCOMFORTS. ON ROOM AIR, RESPIRATIONS ARE EVEN AND UNLABORED. NO S/S OF SOB NOTED. PICC LINE ON LEFT FEMORAL INTACT WITH IVF OF NS @ 100ML/HR INFUSING WELL. SUPRAPUBIC CATH IN PACE WITH PALE CLOUDY URINE OUTPUT NOTED. SAFETY MEASURES IN PLACED: BED IS LOW AND LOCKED, SIDE RAILS UP X2, BED ALARM ON AND CALL LIGHT WITHIN REACH. WILL CONTINUE TO MONITOR PT ACCORDINGLY.
[2021-01-06 08:00] VITALS: BP 117/66
[2021-01-06] MEDS: FAMOTIDINE/PF INJ 20 MG/2 ML VIAL IV SCH ×2 (08:59→20:09)
[2021-01-06] MEDS: LINEZOLID RTU BAG 600 MG in PREMIX 1 EA IV SCH ×2 (09:00→20:58)
[2021-01-06] MEDS: PROPRANOLOL HCL 40 MG TABLET PO SCH ×2 (09:00→16:47)
[2021-01-06] MEDS: DAKINS QUARTER STRENGTH (0.125%) 480 ML BOTTLE TOP SCH (09:06)
[2021-01-06] MEDS: THERAHONEY GEL 1.5 OZ TUBE TP SCH (09:06)
--- NOTE | 2021-01-06 09:31 | NUR ---
RN NOTES PT C/O GENERALIZED PAIN, 8/10 SCALE. PRN DILAUDID 2MG IVP ADMINISTERED AT 0927. WILL CONTINUE TO MONITOR AND REASSESS PT.
[2021-01-06] MEDS: Magnesium 1GM/D5W 100ML PREMIX 100 ML IV SCH ×2 (11:05→12:09)
--- NOTE | 2021-01-06 13:00 | NUR ---
RN NOTES PT IN BED AWAKE AND WATCHING TV. COMPLAINED OF GENERALIZED PAIN, 8/10 SCALE. PRN DILAUDID 2MG IVP ADMINISTERED AT 1257 WILL CONTINUE TO MONITOR AND REASSESS PT.
[2021-01-06 16:00] VITALS: BP 111/56
--- NOTE | 2021-01-06 16:00 | NUR ---
RN NOTES PT COMPLAINED OF GENERALIZED PAIN, 8/10 SCALE. PRN DILAUDID 2MG IVP ADMINISTERED AT 1557 WILL CONTINUE TO MONITOR AND REASSESS PT.
[2021-01-06] MEDS: ONDANSETRON HCL/PF 4 MG/2 ML VIAL IVP PRN (18:24)
--- NOTE | 2021-01-06 18:28 | NUR ---
RN NOTES PATIENT C/O OF NAUSEA, PRN ZOFRAN 4MG/2ML IVP ADMINISTRED AT 1824. WILL CONTINUE TO MONITOR AND REASSESS PT.
--- NOTE | 2021-01-06 18:46 | NUR ---
MS RN ClOSING NOTES PATIENT IN BED AWAKE AT THIS TIME WATCHING TV. A/OX4. ABLE TO MAKE NEEDS KNOWN. ON ROOM AIR, RESPIRATIONS ARE EVEN AND UNLABORED, NO S/S OF SOB NOTED. ALL DUE MEDS GIVEN AND TOLERATED WELL. STRICT CONTACT ISOLATION MAINTAINED FOR COLONIZATION/INFECTION WITH MDR. PICC LINE ON LEFT FEMORAL INTACT WITH IVF OF NS @ 100ML/HR INFUSING WELL. SUPRAPUBIC CATH IN PACE WITH PALE CLOUDY URINE OUTPUT NOTED. ALL NEEDS AND CARE ATTENDED WELL. SAFETY MEASURES IN PLACED: BED IS LOW AND LOCKED, SIDE RAILS UP X2, BED ALARM ON AND CALL LIGHT WITHIN REACH. WILL ENDORSE SOM TO EP SPECIALIST NURSE.
--- NOTE | 2021-01-06 19:03 | NUR ---
RN NOTES PT COMPLAINED OF GENERALIZED PAIN MOSTLY ON HIS WOUNDS SITES, 8/10 SCALE. PRN DILAUDID 2MG IVP ADMINISTERED AT 1900 WILL CONTINUE TO MONITOR AND REASSESS PT.
--- NOTE | 2021-01-06 19:30 | NUR ---
MS RN OPENING NOTES Patient is A&Ox4. Sleeping but easy to wake. reports that PRN pain medication has decreased his pain but requests that his next pain medication be given on time. says he is feeling "okay." denies SOB, no distress noted.
[2021-01-06 20:41] VITALS: BP 117/58
[2021-01-07] MEDS: diphenhydrAMINE HCL 50 MG/ML VIAL IV PRN ×2 (00:46→18:39)
[2021-01-07] MEDS: HYDROMORPHONE INJ 2 MG/ML DISP.SYRIN IV PRN ×7 (01:01→20:34)
[2021-01-07] MEDS: IV NS 0.9% 1,000 ML IV PRN ×2 (01:23→17:08)
[2021-01-07] MEDS: SULBACTAM IJ SCH ×4 (01:25→19:36)
[2021-01-07] MEDS: AMPICILLIN IJ SCH ×4 (01:25→19:36)
[2021-01-07] MEDS: NS 0.9% IJ SCH ×4 (01:25→19:36)
[2021-01-07] MEDS: MEROPENEM 1 G in IV NS 0.9% 100 ML IV SCH ×2 (04:39→12:02)
[2021-01-07] MEDS: diphenhydrAMINE HCL 50 MG/ML VIAL IV SCH ×3 (05:45→20:29)
--- NOTE | 2021-01-07 06:34 | NUR ---
MS RN CLOSING NOTES Patient has been A&Ox4. VSS. Generalized pain managed with PRN dilaudid and repositioning -pt reports relief. Wound care done, bed bath, linen change. Tolerating IV ABX well no adverse reactions. 2700cc output of yellow slightly cloudy urine.
[2021-01-07 06:52] LABS: BASOPHILS # (AUTO) 0.1 K/uL (0.0-0.2); BASOPHILS % (AUTO) 0.6 % (0.0-2.0); EOSINOPHILS % (AUTO) 1.9 % (0.0-6.0); HEMATOCRIT 25 % (39-51); HEMOGLOBIN 7.8 g/dL (13.5-17.5); LYMPHOCYTES # (AUTO) 1.4 K/uL (0.8-4.8); LYMPHOCYTES % (AUTO) 8.7 % (20.0-44.0); MEAN CORPUSCULAR HGB CONC 31 g/dl (31.0-36.0); MEAN CORPUSCULAR VOLUME 83 fL (80-96); MONOCYTES # (AUTO) 0.9 K/uL (0.1-1.30); MONOCYTES % (AUTO) 5.7 % (2.0-12.0); NEUTROPHILS # (AUTO) 13.7 K/uL (1.8-8.9); NEUTROPHILS % (AUTO) 83.1 % (43.0-81.0); PLATELET COUNT (AUTO) 516 K/uL (150-450); RED BLOOD CELL COUNT(AUTO) 3.01 MIL/uL (4.5-6.0); WHITE BLOOD COUNT (AUTO) 16.5 K/uL (4.3-11.0)
[2021-01-07 07:13] LABS: CALCIUM, SERUM 7.6 mg/dL (8.5-10.1); MAGNESIUM 1.6 mg/dL (1.8-2.4); PHOSPHORUS 3.9 mg/dL (2.5-4.9); POTASSIUM 4.8 mmol/L (3.5-5.1)
--- NOTE | 2021-01-07 07:38 | NUR ---
RN OPENING NOTES Patient seen comfortably lying in bed, no SOB, no apparent distress noted, breathing even and unlabored, denies any pain or discomfort at this time. Wayne catheter draining clear, yellowish output, no sediments noted at this time. Call light left within reach, safety precautions in place, brakes locked, side rails up X 2, will monitor closely for any changes.
[2021-01-07 08:00] VITALS: BP 121/63
[2021-01-07] MEDS: FAMOTIDINE/PF INJ 20 MG/2 ML VIAL IV SCH ×2 (08:05→20:28)
[2021-01-07] MEDS: PROPRANOLOL HCL 40 MG TABLET PO SCH ×2 (08:05→17:00)
[2021-01-07] MEDS: LINEZOLID RTU BAG 600 MG in PREMIX 1 EA IV SCH ×2 (08:05→20:34)
[2021-01-07] MEDS: THERAHONEY GEL 1.5 OZ TUBE TP SCH (08:17)
[2021-01-07] MEDS: DAKINS QUARTER STRENGTH (0.125%) 480 ML BOTTLE TOP SCH (08:17)
[2021-01-07] MEDS ORDERED: Magnesium 1GM/D5W 100ML PREMIX 100 ML IV SCH (09:30)
[2021-01-07] MEDS: LEVOFLOXACIN (250MG) 250 MG TABLET PO SCH (13:44)
[2021-01-07 16:00] VITALS: BP 108/62
--- NOTE | 2021-01-07 18:29 | NUR ---
RN CLOSING NOTES Patient lying in bed, AO X 4, no SOB, breathing even and unlabored, no apparent distress noted, remained afebrile during shift. All medications given per MD order, tolerating well. Suprapubic catheter draining clear yellowish urine free from any sediments, no hematuria, and no unusual odor noted in urine, denies any bladder pain or discomfort, bladder non distended during shift. Pain medications given when non pharmacological measures ineffective. All needs attended, kept clean and dry, call light left within reach, safety precautions in place, brakes locked, side rails up X 2, will endorse to next shift for continuity of care.
--- NOTE | 2021-01-07 19:30 | NUR ---
MS RN OPENING NOTES Patient is A&Ox4. Denies pain or discomfort. Suprapubic cath draining clear yellow urine. PICC line flushed and patent. Denies pain or discomfort at this time, but reports liking pain meds to be administered on time. Will continue to monitor.
[2021-01-07 20:00] VITALS: BP 106/62
[2021-01-08] MEDS: SULBACTAM IJ SCH ×4 (00:25→18:55)
[2021-01-08] MEDS: NS 0.9% IJ SCH ×4 (00:25→18:55)
[2021-01-08] MEDS: AMPICILLIN IJ SCH ×4 (00:25→18:55)
[2021-01-08] MEDS: HYDROMORPHONE INJ 2 MG/ML DISP.SYRIN IV PRN ×8 (00:32→23:32)
[2021-01-08] MEDS: ONDANSETRON HCL/PF 4 MG/2 ML VIAL IVP PRN ×2 (04:22→20:14)
--- NOTE | 2021-01-08 04:32 | NUR ---
Patient became nauseous while being changed. PRN Zofran given
[2021-01-08] MEDS: diphenhydrAMINE HCL 50 MG/ML VIAL IV SCH ×3 (05:36→20:53)
--- NOTE | 2021-01-08 06:23 | NUR ---
MS RN CLOSING NOTES Patient has been A&Ox4. VSS. Tolerating IV ABX well. wound treatment completed. Turn q2h, keep clean and dry. 2550 output to suprapubic cath -light yellow and slightly cloudy. C/o pain to back/sacrum/generalized relieved by PRN dilaudid. PICC line patent and infusing NS at 100cc/hr.
[2021-01-08] MEDS: IV NS 0.9% 1,000 ML IV PRN (06:35)
[2021-01-08 07:01] LABS: BASOPHILS # (AUTO) 0.1 K/uL (0.0-0.2); BASOPHILS % (AUTO) 0.7 % (0.0-2.0); EOSINOPHILS % (AUTO) 2.1 % (0.0-6.0); HEMATOCRIT 23 % (39-51); HEMOGLOBIN 7.2 g/dL (13.5-17.5); LYMPHOCYTES # (AUTO) 1.4 K/uL (0.8-4.8); LYMPHOCYTES % (AUTO) 14.9 % (20.0-44.0); MEAN CORPUSCULAR HGB CONC 32 g/dl (31.0-36.0); MEAN CORPUSCULAR VOLUME 83 fL (80-96); MONOCYTES # (AUTO) 0.6 K/uL (0.1-1.30); MONOCYTES % (AUTO) 6.2 % (2.0-12.0); NEUTROPHILS # (AUTO) 7.1 K/uL (1.8-8.9); NEUTROPHILS % (AUTO) 76.1 % (43.0-81.0); PLATELET COUNT (AUTO) 372 K/uL (150-450); RED BLOOD CELL COUNT(AUTO) 2.72 MIL/uL (4.5-6.0); WHITE BLOOD COUNT (AUTO) 9.3 K/uL (4.3-11.0)
[2021-01-08 07:28] LABS: CALCIUM, SERUM 7.7 mg/dL (8.5-10.1); CREATININE 1.8 mg/dL (0.6-1.3); MAGNESIUM 1.8 mg/dL (1.8-2.4); PHOSPHORUS 4.9 mg/dL (2.5-4.9)
--- NOTE | 2021-01-08 07:44 | NUR ---
MS RN OPENING NOTE RECEIVED PATIENT AWAKE IN BED, EASY TO AROUSE. ALERT AND ORIENTED X 4. NO S/S OF DISTRESS NOTED. BREATHING IS EVEN AND UNLABORED. PT IS TOLERATING WELL ON ROOM AIR. IV ACCESS LEFT FEMORAL PICC LINE PATENT AND INTACT. PT NOTED WITH SUPRAPUBIC CATH DRAINING CLEAR YELLOW URINE. SAFETY MEASURES MAINTAINED WITH BED LOCKED AT LOW POSITION AND SIDE RAILS UP X2. CALL LIGHT IS WITHIN REACH . WILL CONTINUE TO MONITOR THROUGHOUT SHIFT.
[2021-01-08 08:00] VITALS: BP 118/61
[2021-01-08] MEDS: LINEZOLID RTU BAG 600 MG in PREMIX 1 EA IV SCH ×2 (08:49→20:52)
[2021-01-08] MEDS: PROPRANOLOL HCL 40 MG TABLET PO SCH ×2 (08:50→16:55)
[2021-01-08] MEDS: FAMOTIDINE/PF INJ 20 MG/2 ML VIAL IV SCH ×2 (08:50→20:53)
[2021-01-08] MEDS: THERAHONEY GEL 1.5 OZ TUBE TP SCH (08:53)
[2021-01-08] MEDS: DAKINS QUARTER STRENGTH (0.125%) 480 ML BOTTLE TOP SCH (08:53)
[2021-01-08] MEDS: LEVOFLOXACIN (250MG) 250 MG TABLET PO SCH (12:56)
--- NOTE | 2021-01-08 15:00 | NUR ---
MS RN NOTES REPORT GIVEN TO SANDRA SANDHU FOR CONTINUATION OF CARE.
[2021-01-08 16:20] VITALS: BP 127/67
--- NOTE | 2021-01-08 16:30 | NUR ---
PT. STATUS QUO,MEDICATED AGAIN WITH DILAUDID FOR PAIN.IV INTACT.NO ACUTE DISTRESS.
--- NOTE | 2021-01-08 19:57 | NUR ---
MS RN OPENING NOTES: RECEIVED PATIENT AWAKE IN BED BED, IN LOW POSITION, CALL LIGHTS WITHIN REACH, NO COMPLAIN OF PAIN AND DISCOMFORT AT THIS TIME, PATIENT IS A/O X4 ABLE TO EXPRESS NEEDS, WITH MULTIPLE SKIN STAGE ISSUE ON RIT BUTTOCKS, WITH PICC LINE AT LEFT FEMORAL WITH ONGOING NSS0.9@100ML PER HOUR INFUSING WELL, ON SUPRAPUBIC CATH, PATIENT KEPT CLEAN AND DRY, ALL NEEDS MET, WILL CONTINUE TO MONITOR
[2021-01-08 20:00] VITALS: BP 107/55
[2021-01-09] MEDS: SULBACTAM IJ SCH ×4 (00:31→18:46)
[2021-01-09] MEDS: NS 0.9% IJ SCH ×4 (00:31→18:46)
[2021-01-09] MEDS: AMPICILLIN IJ SCH ×4 (00:31→18:46)
[2021-01-09] MEDS: HYDROMORPHONE INJ 2 MG/ML DISP.SYRIN IV PRN ×7 (02:36→21:42)
[2021-01-09] MEDS: IV NS 0.9% 1,000 ML IV PRN ×2 (04:34→20:41)
[2021-01-09] MEDS: diphenhydrAMINE HCL 50 MG/ML VIAL IV SCH ×3 (05:18→23:05)
--- NOTE | 2021-01-09 06:19 | NUR ---
MS RN CLOSING NOTES: RECEIVED PATIENT AWAKE IN BED, BED IN LOW POSITION, CALL LIGHTS WITHIN REACH, NO COMPLAIN OF PAIN AND DISCOMFORT AT THIS TIME, ON PAIN MANAGEMENT PRN Q3H, PATIENT HAS VARIOUS SKIN ISSUES AT THE BILATERAL LEGS AND SACRAL AREA DRESSING CHANGE, ON SUPRA PUBIC CATHETER WITH 1400CC URINE OUTPUT, ON RA, NO SOB WAS OBSERVED, PATIENT WITH L GROIN PICC LINE WITH ONGOING IV FLUIDS OF 0.9NSS@100ML/HR INFUSING WELL., PATIENT KEPT CLEAN AND DRY, ALL NEEDS MET, ENDORSE TO INCOMING SHIFT.
[2021-01-09 06:39] LABS: BASOPHILS # (AUTO) 0.1 K/uL (0.0-0.2); EOSINOPHILS % (AUTO) 2.4 % (0.0-6.0); HEMATOCRIT 23 % (39-51); HEMOGLOBIN 7.3 g/dL (13.5-17.5); LYMPHOCYTES # (AUTO) 1.5 K/uL (0.8-4.8); LYMPHOCYTES % (AUTO) 17.5 % (20.0-44.0); MEAN CORPUSCULAR HGB CONC 31 g/dl (31.0-36.0); MEAN CORPUSCULAR VOLUME 83 fL (80-96); MONOCYTES # (AUTO) 0.5 K/uL (0.1-1.30); MONOCYTES % (AUTO) 6.2 % (2.0-12.0); NEUTROPHILS # (AUTO) 6.2 K/uL (1.8-8.9); NEUTROPHILS % (AUTO) 72.9 % (43.0-81.0); PLATELET COUNT (AUTO) 355 K/uL (150-450); RED BLOOD CELL COUNT(AUTO) 2.78 MIL/uL (4.5-6.0); WHITE BLOOD COUNT (AUTO) 8.5 K/uL (4.3-11.0)
[2021-01-09 07:20] LABS: CALCIUM, SERUM 7.6 mg/dL (8.5-10.1); CREATININE 2.1 mg/dL (0.6-1.3); MAGNESIUM 1.7 mg/dL (1.8-2.4); PHOSPHORUS 4.7 mg/dL (2.5-4.9); POTASSIUM 4.9 mmol/L (3.5-5.1)
--- NOTE | 2021-01-09 07:50 | NUR ---
MS/RN OPENING NOTES: RECEIVED PATIENT AWAKE IN BED, STABLE IN ROOM AIR. NO COMPLAIN OF PAIN AND DISCOMFORT AT THIS TIME. BEDBOUND. ON SUPRA PUBIC CATHETER INTACT AND DRAINING WELL. PATIENT WITH LEFT GROIN PICC LINE WITH ONGOING IV FLUIDS OF 0.9NSS@100ML/HR INFUSING WELL. SAFETY PRECAUTIONS IN PLACED: BED LOCKED ON LOWEST POSITION. SIDE RAILS UPX3, CALL LIGHT WITHIN REACH. WILL CONTINUE WITH THE PLAN OF CARE.
[2021-01-09 08:00] VITALS: BP 116/65
[2021-01-09] MEDS: FAMOTIDINE/PF INJ 20 MG/2 ML VIAL IV SCH ×2 (08:41→20:23)
[2021-01-09] MEDS: PROPRANOLOL HCL 40 MG TABLET PO SCH ×2 (08:42→16:46)
[2021-01-09] MEDS: LINEZOLID RTU BAG 600 MG in PREMIX 1 EA IV SCH ×2 (08:42→20:23)
[2021-01-09] MEDS: DAKINS QUARTER STRENGTH (0.125%) 480 ML BOTTLE TOP SCH (08:48)
[2021-01-09] MEDS: THERAHONEY GEL 1.5 OZ TUBE TP SCH (08:49)
[2021-01-09] MEDS ORDERED: Magnesium 1GM/D5W 100ML PREMIX 100 ML IV SCH (10:00)
[2021-01-09] MEDS: LEVOFLOXACIN (250MG) 250 MG TABLET PO SCH (12:34)
[2021-01-09 16:00] VITALS: BP 113/65
--- NOTE | 2021-01-09 19:23 | NUR ---
MS/RN CLOSING NOTES: PATIENT AWAKE IN BED, STABLE IN ROOM AIR. NO COMPLAIN OF PAIN AND DISCOMFORT AT THIS TIME. BEDBOUND. ON SUPRA PUBIC CATHETER INTACT AND DRAINING WELL. PATIENT WITH LEFT GROIN PICC LINE WITH ONGOING IV FLUIDS OF 0.9NSS@100ML/HR INFUSING WELL. ALL NEEDS MET. KEPT PATIENT COMFORTABLE. SAFETY PRECAUTIONS IN PLACED: BED LOCKED ON LOWEST POSITION. SIDE RAILS UPX3, CALL LIGHT WITHIN REACH. WILL ENDORSE TO THE NEXT SHIFT FOR SOM.
--- NOTE | 2021-01-09 19:24 | NUR ---
RN OPENING NOTE RECEIVED PT RESTING IN BED, EASILY AROUSABLE TO STIMULI, A/OX4, ABLE TO VERBALIZE NEEDS. NO C/O PAIN AT THIS TIME. RESPIRATIONS EVEN AND UNLABORED. IV SITE: L-GROIN PICC LINE INTACT/PATENT/FLUSHES WELL, WITH DRESSING C/D/I. SUPRAPUBIC CATHETER IN PLACE, DRAINING WELL. PT IN NO ACUTE DISTRESS. SAFETY MEASURES IN PLACE, BED IN LOWEST LOCKED POSITION, S/R UPX2, CALL LIGHT WITHIN REACH. WILL CONT TO MONITOR.
[2021-01-09 20:39] VITALS: BP 104/60
--- NOTE | 2021-01-09 21:42 | NUR ---
RN NOTE C/O GENERALIZED BODY PAIN 01/16. GIVEN DILAUDID 2MG IV ORDERED. REPOSITIONED FOR COMFORT. WILL CONT TO MONITOR.
[2021-01-10] MEDS: NS 0.9% IJ SCH ×4 (00:06→18:59)
[2021-01-10] MEDS: SULBACTAM IJ SCH ×4 (00:06→18:59)
[2021-01-10] MEDS: AMPICILLIN IJ SCH ×4 (00:06→18:59)
[2021-01-10] MEDS: HYDROMORPHONE INJ 2 MG/ML DISP.SYRIN IV PRN ×8 (00:52→21:30)
[2021-01-10] MEDS: ONDANSETRON HCL/PF 4 MG/2 ML VIAL IVP PRN (03:13)
[2021-01-10] MEDS: diphenhydrAMINE HCL 50 MG/ML VIAL IV SCH ×3 (06:05→21:30)
[2021-01-10 06:33] LABS: BASOPHILS # (AUTO) 0.1 K/uL (0.0-0.2); BASOPHILS % (AUTO) 0.7 % (0.0-2.0); EOSINOPHILS % (AUTO) 1.7 % (0.0-6.0); HEMATOCRIT 23 % (39-51); HEMOGLOBIN 7.3 g/dL (13.5-17.5); LYMPHOCYTES # (AUTO) 1.4 K/uL (0.8-4.8); LYMPHOCYTES % (AUTO) 11.9 % (20.0-44.0); MEAN CORPUSCULAR HGB CONC 31 g/dl (31.0-36.0); MEAN CORPUSCULAR VOLUME 83 fL (80-96); MONOCYTES # (AUTO) 0.5 K/uL (0.1-1.30); MONOCYTES % (AUTO) 4.4 % (2.0-12.0); NEUTROPHILS # (AUTO) 9.6 K/uL (1.8-8.9); NEUTROPHILS % (AUTO) 81.3 % (43.0-81.0); PLATELET COUNT (AUTO) 368 K/uL (150-450); RED BLOOD CELL COUNT(AUTO) 2.78 MIL/uL (4.5-6.0); WHITE BLOOD COUNT (AUTO) 11.8 K/uL (4.3-11.0)
--- NOTE | 2021-01-10 06:50 | NUR ---
RN CLOSING NOTE PT RESTING IN BED, AWAKE, WATCHING SHOW ON HIS TABLET. RESTING COMFORTABLY, NO C/O PAIN AT THIS TIME. NO SOB. IV SITE: L-FEMORAL PICC LINE INTACT/PATENT/FLUSHES WELL. PICC LINE DRESSING CHANGED AND PHYLLIS WELL. SUPRAPUBIC CATHETER IN PLACE, DRAINING WELL. PT IN NO ACUTE DISTRESS. SAFETY MEASURES MAINTAINED.
[2021-01-10 07:08] LABS: CALCIUM, SERUM 8.1 mg/dL (8.5-10.1); MAGNESIUM 1.7 mg/dL (1.8-2.4); PHOSPHORUS 4.9 mg/dL (2.5-4.9); POTASSIUM 5.1 mmol/L (3.5-5.1)
--- NOTE | 2021-01-10 07:12 | NUR ---
MS RN OPENING NOTE RECEIVED PATIENT ALERT AND ORIENTED X 4. PATIENT WITH NO COMPLAIN OF SEVERE PAIN OR DISCOMFORT. PATIENT IS ON PAIN MEDICATION EVERY 3 HOURS ENDORSED. PATIENT IS ON ROOM AIR WITH EQUAL AND UNLABORED RESPIRATION SATURATING AT 97%. PATIENT WITH PICC LINE ON THE LEFT GROIN ON IVF OF NS RUNNING AT 50ML PER HOUR INFUSING WELL. WITH SUPRAPUBIC CATHETER TO URINE BAG, INFUSING WELL. COMFORT MEASURES PROVIDED. BED ON LOWEST AND LOCKED POSITION, SIDERAILS RAISED FOR SAFETY. CALL LIGHT WITHIN REACH AT ALL TIMES. WILL CONTINUE TO MONITOR PATIENT.
[2021-01-10 08:00] VITALS: BP 118/64
[2021-01-10] MEDS: PROPRANOLOL HCL 40 MG TABLET PO SCH ×2 (09:00→17:00)
[2021-01-10] MEDS: FAMOTIDINE/PF INJ 20 MG/2 ML VIAL IV SCH ×2 (09:01→21:30)
[2021-01-10] MEDS: LINEZOLID RTU BAG 600 MG in PREMIX 1 EA IV SCH ×2 (09:14→21:30)
[2021-01-10] MEDS ORDERED: Magnesium 1GM/D5W 100ML PREMIX 100 ML IV SCH (09:30)
[2021-01-10] MEDS: THERAHONEY GEL 1.5 OZ TUBE TP SCH (09:37)
[2021-01-10] MEDS: DAKINS QUARTER STRENGTH (0.125%) 480 ML BOTTLE TOP SCH (09:38)
[2021-01-10] MEDS: LEVOFLOXACIN (250MG) 250 MG TABLET PO SCH (12:15)
--- NOTE | 2021-01-10 14:10 | NUR ---
MS RN NOTE PATIENT SEEN BY DR. SPENCER
[2021-01-10 16:00] VITALS: BP 107/57
[2021-01-10] MEDS: diphenhydrAMINE HCL 50 MG/ML VIAL IV PRN (18:07)
--- NOTE | 2021-01-10 19:08 | NUR ---
MS RN CLOSING NOTE PATIENT ALERT AND ORIENTED X 4. PATIENT WITH NO COMPLAIN OF SEVERE PAIN OR DISCOMFORT. PATIENT IS ON PAIN MEDICATION EVERY 3 HOURS ENDORSED. PATIENT IS ON ROOM AIR WITH EQUAL AND UNLABORED RESPIRATION SATURATING AT 97%. PATIENT WITH PICC LINE ON THE LEFT GROIN ON IVF OF NS RUNNING AT 50ML PER HOUR INFUSING WELL. WITH SUPRAPUBIC CATHETER TO URINE BAG, INFUSING WELL. COMFORT MEASURES PROVIDED. BED ON LOWEST AND LOCKED POSITION, SIDERAILS RAISED FOR SAFETY. CALL LIGHT WITHIN REACH AT ALL TIMES. WILL ENDORSE TO NEXT SHIFT FOR CONTINUITY OF CARE.
--- NOTE | 2021-01-10 19:15 | NUR ---
MS RN OPENING NOTES: RECEIVED PATIENT IN BED, AWAKE, A/O X4. NO S/S OF DISTRESS NOTED. CALL LIGHT WITHIN REACH. BED ALARM ON. BED IN LOWEST AND LOCKED POSITION. HOB ELEVATED. CONTACT ISOLATION PRECAUTION, MAINTAINED AT ALL TIMES.
[2021-01-10 20:00] VITALS: BP 102/58
[2021-01-11] VITALS (8 sets, daily range): BP systolic 110–133; BP diastolic 60–70
[2021-01-11] MEDS: HYDROMORPHONE INJ 2 MG/ML DISP.SYRIN IV PRN ×8 (01:31→23:33)
[2021-01-11] MEDS: ONDANSETRON HCL/PF 4 MG/2 ML VIAL IVP PRN (02:36)
[2021-01-11] MEDS: diphenhydrAMINE HCL 50 MG/ML VIAL IV PRN ×3 (02:36→19:04)
[2021-01-11] MEDS: NS 0.9% IJ SCH ×4 (03:26→20:06)
[2021-01-11] MEDS: SULBACTAM IJ SCH ×4 (03:26→20:06)
[2021-01-11] MEDS: AMPICILLIN IJ SCH ×4 (03:26→20:06)
[2021-01-11] MEDS: diphenhydrAMINE HCL 50 MG/ML VIAL IV SCH (04:39)
[2021-01-11] MEDS: IV NS 0.9% 1,000 ML IV PRN (06:29)
[2021-01-11 07:21] LABS: CREATININE 2.3 mg/dL (0.6-1.3); MAGNESIUM 1.8 mg/dL (1.8-2.4); PHOSPHORUS 4.7 mg/dL (2.5-4.9); POTASSIUM 4.7 mmol/L (3.5-5.1)
--- NOTE | 2021-01-11 07:30 | NUR ---
MS RN OPENING NOTES RECEIVED PATIENT ON BED, AWAKE AND A/O X4. ON ROOM AIR TOLERATING WELL, NO SOB NOTED. NOT IN DISTRESS. WITH IV ACCESS AT LEFT GROIN PICC LINE WITH IVF NS AT 50ML/HR, INFUSING WELL. SAFETY MEASURES IN PLACED. CALL LIGHT WITHIN REACH. BED ON LOWEST AND LOCKED POSITION, SIDE RAILS UP X2. WILL CONTINUE TO MONITOR.
[2021-01-11] MEDS ORDERED: diphenhydrAMINE HCL 50 MG/ML VIAL IV PRN (07:58)
[2021-01-11] MEDS: THERAHONEY GEL 1.5 OZ TUBE TP SCH (08:20)
[2021-01-11] MEDS: FAMOTIDINE/PF INJ 20 MG/2 ML VIAL IV SCH ×2 (08:21→20:06)
[2021-01-11] MEDS: DAKINS QUARTER STRENGTH (0.125%) 480 ML BOTTLE TOP SCH (08:21)
[2021-01-11] MEDS: PROPRANOLOL HCL 40 MG TABLET PO SCH ×2 (08:22→17:33)
[2021-01-11 08:31] LABS: BASOPHILS # (AUTO) 0.1 K/uL (0.0-0.2); BASOPHILS % (AUTO) 1.2 % (0.0-2.0); EOSINOPHILS % (AUTO) 1.7 % (0.0-6.0); HEMATOCRIT 21 % (39-51); LYMPHOCYTES # (AUTO) 1.2 K/uL (0.8-4.8); LYMPHOCYTES % (AUTO) 13.1 % (20.0-44.0); MEAN CORPUSCULAR HGB CONC 32 g/dl (31.0-36.0); MEAN CORPUSCULAR VOLUME 81 fL (80-96); MONOCYTES # (AUTO) 0.4 K/uL (0.1-1.30); PLATELET COUNT (AUTO) 311 K/uL (150-450); RED BLOOD CELL COUNT(AUTO) 2.53 MIL/uL (4.5-6.0); WHITE BLOOD COUNT (AUTO) 8.8 K/uL (4.3-11.0)
--- NOTE | 2021-01-11 08:50 | NUR ---
MS RN NOTE TRISTEN FROM LAB CALLED REPORTING FOR PATIENT'S HGB AT 6.7. REPORTED TO DR. ROD AND ORDERED FOR BLOOD TRANSFUSION 1 PRBC WHEN BLOOD IS AVAILABLE.
[2021-01-11 08:52] LABS: HEMOGLOBIN 6.7 g/dL (13.5-17.5)
[2021-01-11 09:40] LABS: EOSINOPHILS % (MANUAL) 2 % (0-4); LYMPHOCYTES % (MANUAL) 13 % (16-48); MONOCYTES % (MANUAL) 4 % (0-11.0); NEUTROPHILS % (MANUAL) 81 (42-76)
[2021-01-11] MEDS: LINEZOLID RTU BAG 600 MG in PREMIX 1 EA IV SCH (10:29)
[2021-01-11] MEDS: LEVOFLOXACIN (250MG) 250 MG TABLET PO SCH (12:53)
--- NOTE | 2021-01-11 15:55 | NUR ---
RN NOTES BEGAN BLOOD TRANSFUSION AND CHECKED WITH SANDRA MUNGUIA. WITH STABLE VITAL SIGNS. WILL MONITOR PATIENT AFTER 15 MINUTES.
--- NOTE | 2021-01-11 19:00 | NUR ---
RN NOTES ENDED BLOOD TRANSFUSION. WITH STABLE VITAL SIGNS.
--- NOTE | 2021-01-11 19:20 | NUR ---
MS RN OPENING NOTES: RECEIVED PATIENT IN BED, ASLEEP, EASILY AROUSABLE. NO S/S OF DISTRESS NOTED. CALL LIGHT WITHIN REACH. BED IN LOWEST AND LOCKED POSITION. A/O X4. HOB ELEVATED. ON CONTACT ISOLATION, MAINTAINED AT ALL TIMES.
--- NOTE | 2021-01-11 19:32 | NUR ---
MS RN CLOSING NOTES PATIENT ON BED, AWAKE AND A/O X4. ON ROOM AIR TOLERATING WELL, NO SOB NOTED. NOT IN DISTRESS. WITH IV ACCESS AT LEFT GROIN PICC LINE WITH IVF NS AT 50ML/HR, INFUSING WELL. SAFETY MEASURES IN PLACED. CALL LIGHT WITHIN REACH. BED ON LOWEST AND LOCKED POSITION, SIDE RAILS UP X2. WILL ENDORSE TO NEXT SHIFT FOR SOM.
[2021-01-11] MEDS: LINEZOLID 600 MG TABLET PO SCH (20:06)
[2021-01-12] MEDS: ONDANSETRON HCL/PF 4 MG/2 ML VIAL IVP PRN (00:18)
--- NOTE | 2021-01-12 00:18 | NUR ---
RN ms notes Pt is feeling nauseated, no emesis and requesting zofran. administered zofran 4 mg/iv push as ordered for nausea. Primary nurse is informed and aware. Will continue to monitor.
[2021-01-12] MEDS: diphenhydrAMINE HCL 50 MG/ML VIAL IV PRN ×5 (01:07→23:58)
[2021-01-12] MEDS: AMPICILLIN IJ SCH ×4 (01:58→18:02)
[2021-01-12] MEDS: SULBACTAM IJ SCH ×4 (01:58→18:02)
[2021-01-12] MEDS: NS 0.9% IJ SCH ×4 (01:58→18:02)
[2021-01-12] MEDS: HYDROMORPHONE INJ 2 MG/ML DISP.SYRIN IV PRN ×7 (02:37→21:23)
[2021-01-12 06:35] LABS: BASOPHILS # (AUTO) 0.1 K/uL (0.0-0.2); EOSINOPHILS % (AUTO) 1.7 % (0.0-6.0); HEMATOCRIT 23 % (39-51); HEMOGLOBIN 7.3 g/dL (13.5-17.5); LYMPHOCYTES # (AUTO) 1.3 K/uL (0.8-4.8); MEAN CORPUSCULAR HGB CONC 32 g/dl (31.0-36.0); MEAN CORPUSCULAR VOLUME 84 fL (80-96); MONOCYTES # (AUTO) 0.6 K/uL (0.1-1.30); MONOCYTES % (AUTO) 7.3 % (2.0-12.0); NEUTROPHILS # (AUTO) 5.8 K/uL (1.8-8.9); PLATELET COUNT (AUTO) 294 K/uL (150-450); RED BLOOD CELL COUNT(AUTO) 2.72 MIL/uL (4.5-6.0); WHITE BLOOD COUNT (AUTO) 7.9 K/uL (4.3-11.0)
--- NOTE | 2021-01-12 07:39 | NUR ---
MS/RN OPENING NOTES RECEIVED PATIENT ON BED AWAKE ALERT AND ORIENTED X4. PATIENT IS ON ROOM AIR. PATIENT IN NO APPARENT RESPIRATORY DISTRESS NOTED. NO COMPLAINED OF PAIN AT THIS TIME. WILL CONTINUE TO MONITOR.
[2021-01-12 07:57] LABS: ALBUMIN 1.6 g/dL (3.4-5.0); BILIRUBIN,TOTAL 0.2 mg/dL (0.2-1.0); CALCIUM, SERUM 7.7 mg/dL (8.5-10.1); CREATININE 2.4 mg/dL (0.6-1.3); MAGNESIUM 1.7 mg/dL (1.8-2.4); PHOSPHORUS 4.3 mg/dL (2.5-4.9); POTASSIUM 4.5 mmol/L (3.5-5.1); TOTAL PROTEIN, SERUM 6.9 g/dL (6.4-8.2)
[2021-01-12 08:00] VITALS: BP 124/66
[2021-01-12] MEDS: FAMOTIDINE/PF INJ 20 MG/2 ML VIAL IV SCH ×2 (08:25→21:23)
[2021-01-12] MEDS: LINEZOLID 600 MG TABLET PO SCH ×2 (08:25→21:23)
[2021-01-12] MEDS: PROPRANOLOL HCL 40 MG TABLET PO SCH ×2 (08:26→16:15)
[2021-01-12] MEDS: THERAHONEY GEL 1.5 OZ TUBE TP SCH (08:35)
[2021-01-12] MEDS: DAKINS QUARTER STRENGTH (0.125%) 480 ML BOTTLE TOP SCH (12:15)
[2021-01-12] MEDS: IV NS 0.9% 1,000 ML IV PRN (12:53)
[2021-01-12] MEDS ORDERED: Magnesium 1GM/D5W 100ML PREMIX 100 ML IV SCH (13:00)
[2021-01-12] MEDS: LEVOFLOXACIN (250MG) 250 MG TABLET PO SCH (13:04)
[2021-01-12] MEDS ORDERED: LEVO750T46 PO (14:55)
[2021-01-12] MEDS ORDERED: HYDR8TAB2 PO (14:55)
[2021-01-12] MEDS ORDERED: DIPH50CA4 PO (14:55)
[2021-01-12] MEDS ORDERED: Linezolid PO (14:55)
[2021-01-12] MEDS ORDERED: SODI473S8 TOP (14:55)
[2021-01-12] MEDS ORDERED: LINE600T13 PO (14:55)
[2021-01-12] MEDS ORDERED: ATOR40TA PO (14:55)
[2021-01-12] MEDS ORDERED: COVID-19 VACC,MRNA(MODERNA) 100 MCG/0.5 ML IM ONE (15:00)
[2021-01-12 16:00] VITALS: BP 99/54
--- NOTE | 2021-01-12 18:54 | NUR ---
MS/RN CLOSING NOTES PATIENT IS ON BED AWAKE ALERT AND ORIENTED X4. PATIENT IS ON ROOM AIR. PATIENT IN NO APPARENT RESPIRATORY DISTRESS NOTED. NO COMPLAINED OF PAIN AT THIS TIME. IV ACCESS AT LEFT FEMORAL PICC LINE WITH IV FLUID OF NS 1L AT 50ML/HOUR ON AND INFUSING WELL. SEEN AND EXAMINED BY MD WITH ORDERS MADE AND CARRIED OUT. ALL DUE MEDICATIONS WAS GIVEN. SAFETY PRECAUTIONS WAS IN PLACED. BED IN LOWEST POSITION AND LOCKED. SIDERAILS UP X2. CALL LIGHT WITHIN REACH. WOUND DRESSING WAS DONE. PATIENT IS FOR DISCHARGED TOMORROW. WILL ENDORSED TO HEATING UNIT INSTALLER FOR SOM.
--- NOTE | 2021-01-12 19:20 | NUR ---
MS RN OPENING NOTES: RECEIVED PATIENT IN BED, ASLEEP, EASILY AROUSABLE. NO S/S OF DISTRESS NOTED. CALL LIGHT WITHIN REACH. BED IN LOWEST AND LOCKED POSITION. A/O X4.CONTACT ISOLATION MAINTAINED AT ALL TIMES.
[2021-01-12 20:00] VITALS: BP 104/59
[2021-01-13] MEDS: AMPICILLIN IJ SCH ×4 (00:55→19:22)
[2021-01-13] MEDS: NS 0.9% IJ SCH ×4 (00:55→19:22)
[2021-01-13] MEDS: SULBACTAM IJ SCH ×4 (00:55→19:22)
[2021-01-13] MEDS: HYDROMORPHONE INJ 2 MG/ML DISP.SYRIN IV PRN ×8 (00:59→22:21)
[2021-01-13] MEDS: diphenhydrAMINE HCL 50 MG/ML VIAL IV PRN ×3 (06:02→17:57)
--- NOTE | 2021-01-13 07:37 | NUR ---
RN CLOSING NOTE PATIENT RESTING IN BED ASLEEP. AROUSES TO LIGHT TOUCH. ON RA WITH NO SOB OR RESPIRATORY DISTRESS. A/O X4 AND NEPALI SPEAKING. NO COMPLAINT OF PAIN OR NAUSEA. NO VEST BASTER PRESENT. NO EDEMA PRESENT. SUPRAPUBIC CATHETER PRESENT AND DRAINS WELL. CONSTIPATION NOTED. BEDBOUND D/T PARAPLEGIA. SKIN ISSUES PRESENT, PICTURES IN CHART, WOUND CARE ORDERED. PICC LINE PRESENT ON L FEMORAL. FLUSHES WELL, ISSUES WITH BLOOD DRAW. N/S RUNNING AT 50 ML/HR. LABS AND ORDERS REVIEWED. SAFETY MEASURES IN PLACE. SIDE RAILS RAISED. BED LOWERED. CALL LIGHT WITHIN REACH. WILL CONTINUE TO MONITOR. Addendum: 01/13/21 at 0740 by ALEK GHOSH RN OPENING NOTE
[2021-01-13 08:00] VITALS: BP 135/70
[2021-01-13] MEDS: THERAHONEY GEL 1.5 OZ TUBE TP SCH (09:00)
[2021-01-13] MEDS: PROPRANOLOL HCL 40 MG TABLET PO SCH ×2 (09:09→17:25)
[2021-01-13] MEDS: FAMOTIDINE/PF INJ 20 MG/2 ML VIAL IV SCH ×2 (09:09→21:17)
[2021-01-13] MEDS: LEVOFLOXACIN (250MG) 250 MG TABLET PO SCH (09:09)
[2021-01-13] MEDS: LINEZOLID 600 MG TABLET PO SCH ×2 (09:09→21:17)
[2021-01-13] MEDS: DAKINS QUARTER STRENGTH (0.125%) 480 ML BOTTLE TOP SCH (09:21)
[2021-01-13] MEDS: ONDANSETRON HCL/PF 4 MG/2 ML VIAL IVP PRN (13:46)
[2021-01-13 16:00] VITALS: BP 124/73
[2021-01-13] MEDS ORDERED: ALTEPLASE CATHFLO 2 MG/VIAL XX ONE (16:00)
--- NOTE | 2021-01-13 18:12 | NUR ---
RN CLOSING NOTE PATIENT RESTING IN BED ASLEEP. AROUSES TO LIGHT TOUCH. ON RA WITH NO SOB OR RESPIRATORY DISTRESS. A/O X4 AND AMHARIC SPEAKING. NO COMPLAINT OF PAIN OR NAUSEA. NO ELDERLY SITTER PRESENT. NO EDEMA PRESENT. SUPRAPUBIC CATHETER PRESENT AND DRAINS WELL. CONSTIPATION NOTED. BEDBOUND D/T PARAPLEGIA. SKIN ISSUES PRESENT, PICTURES IN CHART, WOUND CARE ORDERED. PICC LINE PRESENT ON L FEMORAL. FLUSHES WELL, ISSUES WITH BLOOD DRAW. N/S RUNNING AT 50 ML/HR. LABS AND ORDERS REVIEWED. SAFETY MEASURES IN PLACE. SIDE RAILS RAISED. BED LOWERED. CALL LIGHT WITHIN REACH. WILL GIVE REPORT TO NIGHT NURSE FOR SOM.
[2021-01-13] MEDS: Magnesium 1GM/D5W 100ML PREMIX 100 ML IV SCH ×2 (18:25→19:58)
--- NOTE | 2021-01-13 19:25 | NUR ---
MS/RN OPENING NOTE RECEIVED PATIENT RESTING IN BED. AWAKE, ALERT AND ORIENTED X 4. ABLE TO MAKE NEEDS KNOWN. DENIES PAIN AT THIS TIME. CONTINUES ON ROOM AIR WITH NO S/SX OF RESPIRATORY DISTRESS NOTED. IV ACCESS TO LEFT FEMORAL PICC LINE INTACT AND PATENT. CONTINUES ON IV NS @ 50ML/HR. CONTINUES ON IV ABX. SUPRAPUBIC CATHETER IN PLACE DRAINING TO GRAVITY. CONTINUES ON CONTACT PRECAUTIONS FOR POSITIVE WOUND CX. CALL LIGHT WITHIN REACH. ASPIRATION, FALL AND SAFETY PRECAUTIONS MAINTAINED. WILL CONTINUE TO MONITOR.
[2021-01-13 20:00] VITALS: BP 117/63
[2021-01-14] MEDS: diphenhydrAMINE HCL 50 MG/ML VIAL IV PRN ×4 (00:02→16:51)
[2021-01-14] MEDS: SULBACTAM IJ SCH ×4 (01:02→18:00)
[2021-01-14] MEDS: AMPICILLIN IJ SCH ×4 (01:02→18:00)
[2021-01-14] MEDS: NS 0.9% IJ SCH ×4 (01:02→18:00)
[2021-01-14] MEDS: HYDROMORPHONE INJ 2 MG/ML DISP.SYRIN IV PRN ×6 (01:25→16:51)
--- NOTE | 2021-01-14 06:30 | NUR ---
MS/RN CLOSING NOTE PATIENT CURRENTLY RESTING IN BED. AWAKE, ALERT AND ORIENTED X 4. ABLE TO MAKE NEEDS KNOWN. DENIES PAIN AT THIS TIME. CONTINUES ON ROOM AIR WITH NO S/SX OF RESPIRATORY DISTRESS NOTED. IV ACCESS TO LEFT FEMORAL PICC LINE INTACT AND PATENT. CONTINUES ON IV NS @ 50ML/HR. CONTINUES ON IV ABX. SUPRAPUBIC CATHETER IN PLACE DRAINING TO GRAVITY. CONTINUES ON CONTACT PRECAUTIONS FOR POSITIVE WOUND CX. CALL LIGHT WITHIN REACH. ASPIRATION, FALL AND SAFETY PRECAUTIONS MAINTAINED. WILL ENDORSE PLAN OF CARE TO ONCOMING SHIFT.
--- NOTE | 2021-01-14 07:16 | NUR ---
RN CLOSING NOTE PATIENT RESTING IN BED ASLEEP. AROUSES TO LIGHT TOUCH. ON RA WITH NO SOB OR RESPIRATORY DISTRESS. A/O X4 AND MAORI SPEAKING. NO COMPLAINT OF PAIN OR NAUSEA. NO PHYSICIAN SCRIBE PRESENT. NO EDEMA PRESENT. SUPRAPUBIC CATHETER PRESENT AND DRAINS WELL. CONSTIPATION NOTED. BEDBOUND D/T PARAPLEGIA. SKIN ISSUES PRESENT, PICTURES IN CHART, WOUND CARE ORDERED. PICC LINE PRESENT ON L FEMORAL. FLUSHES WELL. N/S RUNNING AT 50 ML/HR. LABS AND ORDERS REVIEWED. SAFETY MEASURES IN PLACE. SIDE RAILS RAISED. BED LOWERED. CALL LIGHT WITHIN REACH. WILL CONTINUE TO MONITOR.
[2021-01-14] MEDS: LINEZOLID 600 MG TABLET PO SCH (08:29)
[2021-01-14] MEDS: FAMOTIDINE/PF INJ 20 MG/2 ML VIAL IV SCH (08:29)
[2021-01-14] MEDS: DAKINS QUARTER STRENGTH (0.125%) 480 ML BOTTLE TOP SCH (08:30)
[2021-01-14] MEDS: THERAHONEY GEL 1.5 OZ TUBE TP SCH (08:30)
[2021-01-14] MEDS: PROPRANOLOL HCL 40 MG TABLET PO SCH ×2 (09:00→17:30)
[2021-01-14] MEDS: LEVOFLOXACIN (250MG) 250 MG TABLET PO SCH (12:10)
[2021-01-14] MEDS ORDERED: AMPI3VIA IJ (16:06)
[2021-01-14] MEDS ORDERED: MAGNESIUM OXIDE 400 MG TABLET PO SCH (16:30)
[2021-01-14 17:30] VITALS: BP 124/70
--- NOTE | 2021-01-14 18:01 | NUR ---
KENO MANAGER NOET PT DISCHARGED HOME. PRESCRIPTIONS CHECKED WITH PATIENT. HH AND NICKI MEJIA CALLED TO VERIFY PRESCRIPTIONS. ID BANDS REMOVED. PICC LINE TO STAY IN FOR OUTPT ABX. WOUND CARE DONE. WOUND PICTURES TAKEN. WOUND TX ENDORSED TO HH AGENCY. EXITCARE EDUCATION UTILIZED AND GIVEN TO PT. BELONGINGS CHECKED AND GIVEN TO PT. POWER WHEELCHAIR LEFT BEHIND, PT STATES THAT SOMEONE WILL COME TO FIRST AID NURSE. PT TRANSPORTED OUT OF HOSPITAL VIA GURNEY ESCORTED BY EMT.
== END 2021-01-14 18:04 | disposition home health service (06) | DRG 853 ==
LOC: ER 18:02 → TELE 12-29 00:41 → MED 12-30 11:18 → ICU 01-04 10:49 → MED 01-05 09:39
PROVIDERS: ADMIT Nurse Practitioner Acute Care; ATTEND Nurse Practitioner Acute Care
PROC: 0JBQ0ZZ Excision of Right Foot Subcutaneous Tissue and Fascia, Open Approach (ICD-10-PCS; principal; 2020-12-29)
PROC: 0JBR0ZZ Excision of Left Foot Subcutaneous Tissue and Fascia, Open Approach (ICD-10-PCS; 2020-12-29)
PROC: 06H033Z Insertion of Infusion Device into Inferior Vena Cava, Percutaneous Approach (ICD-10-PCS; 2020-12-29)
PROC: B549ZZA Ultrasonography of Inferior Vena Cava, Guidance (ICD-10-PCS; 2020-12-29)
PROC: 0KBR0ZZ Excision of Left Upper Leg Muscle, Open Approach (ICD-10-PCS; 2020-12-30)
PROC: 0QB30ZZ Excision of Left Pelvic Bone, Open Approach (ICD-10-PCS; 2020-12-30)
PROC: 30233N1 Transfusion of Nonautologous Red Blood Cells into Peripheral Vein, Percutaneous Approach (ICD-10-PCS; 2020-12-30)
PROC: 0QB30ZZ Excision of Left Pelvic Bone, Open Approach (ICD-10-PCS; 2021-01-04)
PROC: 0KBQ0ZZ Excision of Right Upper Leg Muscle, Open Approach (ICD-10-PCS; 2021-01-04)
PROC: 0QB30ZZ Excision of Left Pelvic Bone, Open Approach (ICD-10-PCS; 2021-01-11)
DX: A41.9 Sepsis, unspecified organism (principal); L89.224 Pressure ulcer of left hip, stage 4; L89.324 Pressure ulcer of left buttock, stage 4; L89.894 Pressure ulcer of other site, stage 4; L89.613 Pressure ulcer of right heel, stage 3; L89.523 Pressure ulcer of left ankle, stage 3; L89.893 Pressure ulcer of other site, stage 3; E43 Unspecified severe protein-calorie malnutrition; T83.511A Infection and inflammatory reaction due to indwelling urethral catheter, initial encounter; E87.1 Hypo-osmolality and hyponatremia; N17.9 Acute kidney failure, unspecified; N18.4 Chronic kidney disease, stage 4 (severe); E87.2 Acidosis; G82.20 Paraplegia, unspecified; M86.68 Other chronic osteomyelitis, other site; M46.28 Osteomyelitis of vertebra, sacral and sacrococcygeal region; N13.6 Pyonephrosis; M00.9 Pyogenic arthritis, unspecified; Z16.24 Resistance to multiple antibiotics; R65.20 Severe sepsis without septic shock; Y84.8 Other medical procedures as the cause of abnormal reaction of the patient, or of later complication, without mention of misadventure at the time of the procedure; Y92.89 Other specified places as the place of occurrence of the external cause; I12.9 Hypertensive chronic kidney disease with stage 1 through stage 4 chronic kidney disease, or unspecified chronic kidney disease; L89.159 Pressure ulcer of sacral region, unspecified stage; D63.8 Anemia in other chronic diseases classified elsewhere; D75.839 Thrombocytosis, unspecified; E11.22 Type 2 diabetes mellitus with diabetic chronic kidney disease; E78.5 Hyperlipidemia, unspecified; F17.210 Nicotine dependence, cigarettes, uncomplicated; G89.4 Chronic pain syndrome; E86.1 Hypovolemia; Z93.3 Colostomy status; I10 Essential (primary) hypertension; E88.09 Other disorders of plasma-protein metabolism, not elsewhere classified; L89.626 Pressure-induced deep tissue damage of left heel; R23.4 Changes in skin texture; N31.9 Neuromuscular dysfunction of bladder, unspecified; Z80.0 Family history of malignant neoplasm of digestive organs; Z86.14 Personal history of Methicillin resistant Staphylococcus aureus infection; Z86.718 Personal history of other venous thrombosis and embolism; Z87.440 Personal history of urinary (tract) infections; Z95.828 Presence of other vascular implants and grafts; Z99.3 Dependence on wheelchair; Z87.442 Personal history of urinary calculi; N28.1 Cyst of kidney, acquired; S24.102S Unspecified injury at T2-T6 level of thoracic spinal cord, sequela; M89.9 Disorder of bone, unspecified; V89.2XXS Person injured in unspecified motor-vehicle accident, traffic, sequela; E11.69 Type 2 diabetes mellitus with other specified complication; Z20.822 Contact with and (suspected) exposure to COVID-19
CPT/HCPCS: 36415; 36569; 71045-TC; 74018; 76770-TC; 80048-TC; 80053-TC; 80076-TC; 81001; 82570-TC; 83605-TC; 83735-TC; 84100-TC; 84155-TC; 84300-TC; 84484-TC; 85025-TC; 85027-TC; 85652-TC; 85730-TC; 86140-TC; 86803; 86850-TC; 87040-TC; 87070-TC; 87075-TC; 87081-TC; 87086-TC; 87186-TC; 87806; 93307-TC; A4216; A4217; A6253; A6403; C9803; G0378; J0278; J0295; J1170; J1200; J2020; J2185; J2405; J2704; J2930; J2997; J3370; J3475; J3490; J7030; J7040; J7050; J7060; P9016; P9047

== ENCOUNTER 2021-02-08 00:35 | Inpatient (IN) | payer MEDICARE ==
[2021-02-08] VITALS (32 sets, daily range): BP systolic 60–135; BP diastolic 53–83
[~2021-02-08] VITALS: Ht 167.6 cm; Wt 98.0 kg
[~2021-02-08 00:35] MED LIST changes: +AMPI3VIA IJ; +ATOR40TA PO; +DIPH50CA4 PO; +LEVO750T46 PO; +LINE600T13 PO; +Linezolid PO; +SODI473S8 TOP
[2021-02-08] MEDS ORDERED: Z GUARD REMEDY 2 OZ OINT TP PRN (01:30)
[2021-02-08] MEDS ORDERED: ONDANSETRON HCL/PF 4 MG/2 ML VIAL IVP PRN (01:30)
[2021-02-08 01:49] LABS: BASOPHILS # (AUTO) 0.1 K/uL (0.0-0.2); BASOPHILS % (AUTO) 0.5 % (0.0-2.0); EOSINOPHILS % (AUTO) 2.3 % (0.0-6.0); HEMATOCRIT 29 % (39-51); HEMOGLOBIN 9.2 g/dL (13.5-17.5); LYMPHOCYTES # (AUTO) 1.1 K/uL (0.8-4.8); LYMPHOCYTES % (AUTO) 9.7 % (20.0-44.0); MEAN CORPUSCULAR HGB CONC 32 g/dl (31.0-36.0); MEAN CORPUSCULAR VOLUME 84 fL (80-96); MONOCYTES # (AUTO) 0.5 K/uL (0.1-1.30); MONOCYTES % (AUTO) 4.7 % (2.0-12.0); NEUTROPHILS # (AUTO) 9.5 K/uL (1.8-8.9); NEUTROPHILS % (AUTO) 82.8 % (43.0-81.0); PLATELET COUNT (AUTO) 343 K/uL (150-450); RED BLOOD CELL COUNT(AUTO) 3.44 MIL/uL (4.5-6.0); WHITE BLOOD COUNT (AUTO) 11.5 K/uL (4.3-11.0)
--- NOTE | 2021-02-08 02:00 | NUR ---
ADMISSION NOTES PT ARRIVED TO UNIT VIA ELECTRIC WHEELCHAIR. AOx4. ABLE TO MAKE NEEDS KNOWN. ON RA AND TOLERATING WELL. NO SOB NOTED. NO S/SX OF RESPIRATORY DISTRESS NOTED. IV ACCESS IN L FEMORAL #18G PICC LINE. IV IS INTACT, PATENT, AND FLUSHING WELL. COMPLAINS OF PAIN 8/10 ON BACK. SAFETY PRECAUTIONS IN PLACE: SIDERAILS UPx2, BRAKES ON, AND BED IN LOWEST, LOCKED POSITION. TABLE AND CALL LIGHT WITHIN REACH. WILL CONTINUE TO MONITOR. Addendum: 02/08/21 at 0340 by ESTELLE METZGER RN PT HAS SUPRAPUBIC CATHETER DRAINING YELLOW, CLOUDY URINE.
[2021-02-08 02:09] LABS: ALBUMIN 2.1 g/dL (3.4-5.0); BILIRUBIN,TOTAL 0.3 mg/dL (0.2-1.0); CALCIUM, SERUM 8.3 mg/dL (8.5-10.1); CREATININE 2.4 mg/dL (0.6-1.3); MAGNESIUM 1.6 mg/dL (1.8-2.4); PHOSPHORUS 3.5 mg/dL (2.5-4.9); POTASSIUM 4.4 mmol/L (3.5-5.1); TOTAL PROTEIN, SERUM 7.9 g/dL (6.4-8.2)
[2021-02-08] MEDS: HYDROMORPHONE INJ 2 MG/ML DISP.SYRIN IV PRN ×3 (02:15→08:49)
--- NOTE | 2021-02-08 02:15 | NUR ---
administered dilaudid per md order. will continue to monitor.
[2021-02-08 03:08] LABS: BILIRUBIN,URINE NEGATIVE (NEGATIVE); COLOR,URINE YELLOW (YELLOW); LEUKOCYTE ESTERASE ,URINE LARGE (NEGATIVE); NITRITE, URINE NEGATIVE (NEGATIVE); PROTEIN,URINE 30 mg/dl (NEGATIVE); UGLUCOSE NEGATIVE (NEGATIVE); UROBILINOGEN,URINE 0.2 EU/dL (0.2)
[2021-02-08 03:19] LABS: BACTERIA,URINE Many /HPF (None Seen); RBC,URINE 21-50 /HPF (0-2); SQUAMOUS EPITHELIAL CELL,UR Moderate /HPF (None Seen); WBC,URINE TOO NUMEROUS TO COUN /HPF (0-3)
[2021-02-08 03:20] LABS: YEAST,URINE Moderate /HPF (None Seen)
[2021-02-08] MEDS: IV D5/ 0.9% NACL 1,000 ML IV PRN ×2 (06:14→17:03)
--- NOTE | 2021-02-08 06:22 | NUR ---
ADMINISTERED DILAUDID PER MD ORDER FOR PAIN. VS WNL. WILL CONTINUE TO MONITOR.
--- NOTE | 2021-02-08 06:58 | NUR ---
MS RN CLOSING NOTES PT IN BED, RESTING WITH EYES CLOSED. AOx4. ABLE TO MAKE NEEDS KNOWN. ON RA AND TOLERATING WELL. NO SOB NOTED. NO S/SX OF RESPIRATORY DISTRESS NOTED. IV ACCESS IN L FEMORAL #18G PICC LINE RUNNING D5NS @80 ML/HR. ALL NEEDS MET. PT KEPT CLEAN AND DRY. TREATED PAIN THROUGHOUT SHIFT. TOOK PICTURES OF WOUNDS AND PROVIDED WOUND CARE. SAFETY PRECAUTIONS IN PLACE: SIDERAILS UPx2, BRAKES ON, AND BED IN LOWEST, LOCKED POSITION. TABLE AND CALL LIGHT WITHIN REACH. WILL ENDORSE TO ONCOMING SHIFT FOR SOM.
[2021-02-08] MEDS ORDERED: BUPIVACAINE 0.5 % PF 150 MG/30 ML VIAL ONE (07:46)
[2021-02-08] MEDS ORDERED: LIDOCAINE 1% INJ 50 ML MDV IJ ONE (07:46)
[2021-02-08] MEDS ORDERED: Magnesium 1GM/D5W 100ML PREMIX 100 ML IV SCH (08:00)
--- NOTE | 2021-02-08 08:08 | NUR ---
RN NOTES COVID SWAB OBTAINED FROM LAB AND SPECIMEN OBTAINED FROM PATIENT.
--- NOTE | 2021-02-08 08:54 | NUR ---
WOUND CARE CONSULT: PT FOLLOWED BY SURGICAL AND PODIATRY TEAMS FOR MULTIPLE WOUNDS, PRESENT ON ADMISSION. PT IS ON YOAN ISOFLEX LOW AIRLOSS BED. ALL SKIN PROTECTION RECOMMENDATIONS DISCUSSED WITH NURSING STAFF. MD IN AGREEMENT WITH PLAN OF CARE.
--- NOTE | 2021-02-08 09:50 | NUR ---
RN NOTES PATIENT PICKED UP FOR SURGERY VIA GURNEY, ACCOMPANIED BY 1 OR TECH.
[2021-02-08] MEDS ORDERED: FENTANYL PF 250MCG/5ML AMPUL ONE (10:30)
[2021-02-08] MEDS ORDERED: MIDAZOLAM HCL 2 MG/2ML VIAL ONE (10:31)
[2021-02-08] MEDS ORDERED: HYDROMORPHONE INJ 2 MG/ML DISP.SYRIN ONE (10:31)
[2021-02-08] MEDS ORDERED: CLINDAMYCIN PHOSPHATE IV 600 MG/4 ML VIAL ONE (10:32)
[2021-02-08] MEDS ORDERED: FAMOTIDINE/PF INJ 20 MG/2 ML VIAL IV ONE (10:32)
--- NOTE | 2021-02-08 12:20 | NUR ---
RN NOTES RECEIVED CALL FROM [place], OR , AND WAS INFORMED ABOUT DR. KIM'S ORDER FOR PRBC, NOTED AND CARRIED OUT. PATIENT STILL IN SURGERY.
[2021-02-08] MEDS ORDERED: FUROSEMIDE 20 MG/2 ML VIAL ONE (15:18)
--- NOTE | 2021-02-08 15:50 | NUR ---
SALES DEMONSTRATOR RECEIVED PT FROM PACU BY BED WITH MONITOR. REPORT RECEIVED FROM PAPERHANGER ASSISTANT. PT INTUBATED, PLACED ON VENTILATOR. DOUBLE LUMEN FEMORAL CENTRAL LINE IN PLACE. ASPIRATED BLOOD FROM BOTH PORTS, FLUSHED AND CAPPED. NEW CENTRAL LINE DRESSING PLACED. SUPRAPUBIC CATH INPLACE, DRAINING CLEAR YELLOW URINE. RIGHT THUMB [address], FLUSHED. ROSALINDA DRAINS X 2 IN LEFT HIP WITH SMALL AMT SEROSANGUINEOUS DRAINAGE. ROXY LEG WOUND DRESSINGS INTACT. PT HAVING JERKING MOVEMENTS, PT NOT RESPONSIVE TO COMMANDS.
--- NOTE | 2021-02-08 16:08 | NUR ---
RT PATIENT REC'D FROM OR POST OP. ORALLY INTUBATED WITH AN 8.0 ETT SECURED AT 25CM MID LIP WITH ANCHOR FAST. PLACED ON [facility] VENT WITH SETTINGS GIVEN BY DR ARMSTRONG: AC14, 550, 50%, +5. ALARMS CHECKED + AUDIBLE. AMBU BAG AT HOB. Addendum: 02/08/21 at 1611 by DEBORAH MONSALVE RT Amended: Links added.
--- NOTE | 2021-02-08 16:30 | NUR ---
SIMONIZER CXR ORDERED FOR ETT PLACEMENT. PT HYPOTENSIVE. BP VERIFIED BY DOPPLER. DR ARMSTRONG MADE AWARE. NS BOLUS 500 ML STARTED ORDERED. WILL START LEVOPHED FOR BP SUPPORT. WILL START DIPRIVAN DRIP FOR SEDATION WHEN BP MORE STABLE.
[2021-02-08 16:57] LABS: BASOPHILS # (AUTO) 0.1 K/uL (0.0-0.2); BASOPHILS % (AUTO) 0.3 % (0.0-2.0); EOSINOPHILS % (AUTO) 0.3 % (0.0-6.0); HEMATOCRIT 32 % (39-51); LYMPHOCYTES # (AUTO) 0.3 K/uL (0.8-4.8); LYMPHOCYTES % (AUTO) 1.3 % (20.0-44.0); MEAN CORPUSCULAR HGB CONC 31 g/dl (31.0-36.0); MEAN CORPUSCULAR VOLUME 86 fL (80-96); MONOCYTES # (AUTO) 0.5 K/uL (0.1-1.30); NEUTROPHILS # (AUTO) 24.1 K/uL (1.8-8.9); NEUTROPHILS % (AUTO) 96.1 % (43.0-81.0); PLATELET COUNT (AUTO) 301 K/uL (150-450); WHITE BLOOD COUNT (AUTO) 25.1 K/uL (4.3-11.0)
[2021-02-08] MEDS ORDERED: NOREPINEPHRINE 8 MG in IV NS 0.9% 242 ML IV PRN (17:00)
[2021-02-08] MEDS: PROPOFOL 100 ML IV PRN ×3 (17:40→22:29)
--- NOTE | 2021-02-08 18:00 | NUR ---
PRODUCT EXAMINER PT BECOMING MORE AGITATED. LEVOPHED TITRATED TO BP RESPONSE. DIPRIVAN RATE INCREASED DUE TO AGITATION. WILL DEFER COMPLETE WOUND ASSESSMENT WHEN PT MORE STABLE.
--- NOTE | 2021-02-08 19:00 | NUR ---
SHOOTER'S HELPER CARE ENDORSED TO PIT SHOVEL OPERATOR.
--- NOTE | 2021-02-08 19:45 | NUR ---
ICU/PLC PROGRAMMER RECIEVED REPORT FROM DAY SHIFT NURSE. SEE FLOWSHEET FOR ASSESSMENT, THERE ARE MANY SKIN ISSUES THAT ARE ADDRESSED ON THE FLOWSHEET, ALONG WITH INTERVENTIONS TO EACH. THERE ARE MANY IV'S WHICH IS ADDRESSED ON THE IV SPREAD SHEET, LEVO, IVF, AND DIPRIVAN. PT WAS TURNED AND REPOSITIONED FOR COMFORT AND CARE. WILL CONTINUE TO MONITOR THIS PT. NO ACUTE DISTRESS SEEN AT THIS TIME.
--- NOTE | 2021-02-08 20:11 | NUR ---
ICU/GAS SYSTEMS WORKER BELONGING LIST WAS DONE. PT IS MISSING SHORTS AND SLIPPERS FROM ROOM 329. CALLED FLOOR 3, SPOKE TO DARLEEN AND TOLD HER ABOUT MISSING ITEMS. SAID SHE WILL LOOK FOR THEM. MADE CHARGE NURSE KNOW.
--- NOTE | 2021-02-08 20:19 | NUR ---
ICU/RECEPTIONIST DOCTOR'S OFFICE PT IS MISSING A BLANKET AND 1 DRAWING BOOK. THIS WAS BROUGHT UP TO THIRD FLOOR WHERE THEY ARE LOOKING FOR ITEMS.
--- NOTE | 2021-02-08 21:09 | NUR ---
RT NOTE PT RECEIVED ON INTUBATED WITH 8.0 ET TUBE @ 25 CM. CUFF INFLATED. VENT PLUGGED TO RED OUTLET. ALARMS ON AND AUDIBLE. SUCTION DONE, SMALL THICK SECRETIONS NOTED. PT TOLERATING CURRENT VENT SETTINGS. NO RESPIRATORY DISTRESS NOTED AT THIS TIME. WILL CONTINUE TO MONITOR CLOSELY. Addendum: 02/08/21 at 2110 by HIPOLITO ZAVALA RT Amended: Links added.
--- NOTE | 2021-02-08 22:10 | NUR ---
ICU/GARAGE SUPERVISOR PT IS THRASHING AROUND WAKING UP AT 50MCG, OBTAINED AN ORDER FROM THE BROADCAST MAINTENANCE ENGINEER MD PARKER TO INCREASE SEDATION TO 100MCG IF NEEDED.
--- NOTE | 2021-02-08 23:49 | NUR ---
ICU/CERTIFIED ENDOSCOPY TECHNICIAN STABLE BLOOD PRESSURE WAS ABLE TO HAVE CHARGE NURSE DECREASE LEVO DOWN. WILL CONTINUE TO MONITOR THIS PT'S BP.
[2021-02-09] VITALS (59 sets, daily range): BP systolic 76–121; BP diastolic 32–87
[2021-02-09] MEDS: PROPOFOL 100 ML IV PRN ×6 (00:04→07:26)
[2021-02-09] MEDS: IV D5/ 0.9% NACL 1,000 ML IV PRN ×3 (01:28→23:17)
--- NOTE | 2021-02-09 02:10 | NUR ---
ICU/BLINTZE ROLLER PT'S FIO2 WAS DECREASED DOWN TO 30%. RT LOWERED DOWN FIO2 TO 30% FROM 40% WILL MONITOR THIS PT.
--- NOTE | 2021-02-09 03:00 | NUR ---
ICU/INDUSTRIAL X RAY OPERATOR PT WAS GIVEN ORAL CARE ALONG WITH AM CARE. PT TOLERATED THIS WELL, PT REMAINS ON CURRENT VENT SETTINGS WITH SATURATION AT 100%. PT WAS REPOSITIONED FOR COMFORT AND CARE. PT CONTINUE TO MONITOR THIS PT. NO ACUTE DISTRESS SEEN.
--- NOTE | 2021-02-09 04:20 | NUR ---
ICU/SEEDLING PULLER AM LABS WERE DRAWN, AWAIT FOR ANY ABNORMAL RESULTS.
[2021-02-09 04:57] LABS: BASOPHILS % (AUTO) 0.5 % (0.0-2.0); EOSINOPHILS % (AUTO) 0.5 % (0.0-6.0); HEMATOCRIT 26 % (39-51); HEMOGLOBIN 8.7 g/dL (13.5-17.5); LYMPHOCYTES # (AUTO) 0.8 K/uL (0.8-4.8); LYMPHOCYTES % (AUTO) 8.8 % (20.0-44.0); MEAN CORPUSCULAR HGB CONC 34 g/dl (31.0-36.0); MEAN CORPUSCULAR VOLUME 85 fL (80-96); MONOCYTES # (AUTO) 0.5 K/uL (0.1-1.30); MONOCYTES % (AUTO) 5.4 % (2.0-12.0); NEUTROPHILS # (AUTO) 8.2 K/uL (1.8-8.9); NEUTROPHILS % (AUTO) 84.8 % (43.0-81.0); PLATELET COUNT (AUTO) 234 K/uL (150-450); RED BLOOD CELL COUNT(AUTO) 3.06 MIL/uL (4.5-6.0); WHITE BLOOD COUNT (AUTO) 9.6 K/uL (4.3-11.0)
[2021-02-09 05:08] LABS: CALCIUM, SERUM 7.6 mg/dL (8.5-10.1); CREATININE 2.7 mg/dL (0.6-1.3); MAGNESIUM 1.7 mg/dL (1.8-2.4); PHOSPHORUS 5.2 mg/dL (2.5-4.9)
--- NOTE | 2021-02-09 06:15 | NUR ---
ICU/MULTIPLE EFFECT EVAPORATOR OPERATOR LEVO IS ON HOLD FOR STABLE BLOOD PRESSURE. WILL CONTINUE TO MONITOR THIS PT AND HIS BLOOD PRESSURE.
[2021-02-09 06:51] LABS: ABG BASE EXCESS -10.3 mmol/L; ABG OXYGEN SATURATION 99.2 % (92.0-98.5); ABG PCO2 33.6 mmHg (35.0-45.0); ABG PH 7.279 (7.350-7.450); ABG PO2 239.1 mmHg (75.0-100.0); AaDO2 79.6 mmHg; COHb 0.1 % (0.5-1.5); MetHb 0.5 % (0.0-1.5); O2Hb 98.6 % (94.0-97.0); SITE, ABG Right Radial
--- NOTE | 2021-02-09 07:00 | NUR ---
ICU/SUPERVISOR ENROBING J/P #1 HAD 165ML IN 12 HOURS AND J/P #2 HAD 50ML IN 12 HOURS. THESE WERE DOCUMENTED ON THE I/O.
--- NOTE | 2021-02-09 07:20 | NUR ---
WOUND CARE CONSULT: RECEIVED 2ND WOUND CONSULT. PT IS FOLLOWED BY SURGICAL AND PODIATRY TEAMS FOR WOUNDS. DEFER TO SURGICAL TEAMS FOR WOUND TREATMENT PLAN. RECOMMENDATIONS MADE FOR SKIN PROTECTION. DISCUSSED WITH NURSING STAFF. PT IS INTUBATED AT THIS TIME. PT IS ON YOAN ISOFLEX LOW AIRLOSS BED. MD IN AGREEMENT WITH PLAN OF CARE.
--- NOTE | 2021-02-09 07:30 | NUR ---
ICU/RN PT IS INTUBATED ON THE VENT ,AC MODE,FIO2-30%,SAT O2-100%.V/S STABLE AFEBRILE.OFF LEVOPHED.SEDATED WITH DIPRIVAN .LEFT FEMORAL PICC LINE.SUPRAPUBIC CATHETER DRAINING WITH CLOUDY URINE.PT IS PARAPLEGIC.WITH MULTIPLY WOUNDS ON BLE AND LOWER BACK LEFT HIP COVERED WITH DRESSING.LABS REVIEW. NOTIFIED.NEW ORDERERS RECEIVED.SUCTION PROVIDED.
--- NOTE | 2021-02-09 08:55 | NUR ---
RT PATIENT WAS PLACED ON RAPID VENT WEANING TRIAL PHYLLIS BARRAGAN. PATIENT WAS EXTUBATED PER DR PATTI ALCAZAR AND PLACED ON 2L N/C PHYLLIS BARRAGAN. Addendum: 02/09/21 at 1017 by DEBORAH MONSALVE RT Amended: Links added.
--- NOTE | 2021-02-09 09:00 | NUR ---
ICU/RN DUE MEDS ARE GIVEN ORDERED.PT WAS PLACED ON SIMV MODE.DIPRIVAN STOP.PT IS AWAKE ,ALERT.PT IS EXTUBATED.NO S/S OF DISTRESS NOTED.PLACED ON 2L N/C ,SAT O2-100%.CONTINUE MONITORING.
[2021-02-09] MEDS: HYDROMORPHONE INJ 2 MG/ML DISP.SYRIN IV PRN ×4 (09:16→21:48)
--- NOTE | 2021-02-09 09:20 | NUR ---
ICU/RN PT C/O OF PAIN 7-11/16.DILAUDID 2 MG IV GIVEN ORDERED.
[2021-02-09] MEDS: Magnesium 1GM/D5W 100ML PREMIX 100 ML IV SCH ×2 (11:48→12:22)
--- NOTE | 2021-02-09 12:55 | NUR ---
ICU/RN PT IS REFUSING PULSE O2 SENSOR. ON ROOM AIR.SAT O2-95-100%. NOTIFIED.
--- NOTE | 2021-02-09 13:05 | NUR ---
ICU/RN PT C/O OF PAIN -11/16. DILAUDID IV 2 MG GIVEN ORDERED.REPOSITION FOR COMFORT.
--- NOTE | 2021-02-09 16:00 | NUR ---
ICU/RN PM CARE PROVIDED.WOUND DRESSING DONE ORDERED.REPOSITION FOR COMFORT.
[2021-02-09] MEDS ORDERED: LORAZEPAM INJ 2 MG/ML VIAL IV PRN (18:30)
--- NOTE | 2021-02-09 20:00 | NUR ---
RN NOTE RECEIVED PT IN BED, ALERT AND ORIENTED, WATCHING FROM IPAD. DENIES ANY PAIN OR ANY SOB. PATIENT TOLERATING ROOM AIR, ABLE TO PUT O2 SENSOR, SATING AT 98% ON RA. NO SIGNS OF DISTRESS NOTED. SINUS TACH ON TELE MONITOR PTS BASELINE WITH HR 0F 111. PT WITH SUPRAPUBIC PLASENCIA DRAINING CLOUDY URINE, SOME LEAKING NOTED. WOUND DRESSING INTACT ON LHIP WITH 2 ROSALINDA DRAIN NOTED WITH SEROSANGUINEOUS DRAINAGE. ALL SAFETY MEASURE IMPLEMENTED PER PROTOCOL. WILL CONTINUE TO MONITOR.
[2021-02-09] MEDS: DAKINS QUARTER STRENGTH (0.125%) 480 ML BOTTLE TOP SCH (21:58)
[2021-02-10] VITALS (18 sets, daily range): BP systolic 106–145; BP diastolic 42–110
--- NOTE | 2021-02-10 00:37 | NUR ---
RN NOTE RECEIVED A CALL FROM DR GREGORIO YANG WITH NEW ORDERS OF SEROQUEL 50MG 1TAB PO QHS PRN FOR SLEEP AND CEPACOL Q2H PRN FOR SORE THROAT. MD MADE AWARE REGARDING PT REPORTED HAVING AUDITORY HALLUCINATIONS AFTER TAKING ATIVAN, MD ORDER TO D/C. WILL CONTINUE TO MONITOR.
[2021-02-10] MEDS ORDERED: MENTHOL/CETYLPYRD (CEPACOL) 1 LOZ LOZENGE PO PRN (01:00)
[2021-02-10] MEDS: QUETIAPINE FUMARATE 25 MG TABLET PO PRN (01:06)
[2021-02-10] MEDS: HYDROMORPHONE INJ 2 MG/ML DISP.SYRIN IV PRN ×7 (01:52→22:32)
[2021-02-10] MEDS ORDERED: MENTHOL/CETYLPYRD (CEPACOL) 1 LOZ LOZENGE ONE (02:47)
[2021-02-10 04:57] LABS: ALBUMIN 1.5 g/dL (3.4-5.0); BILIRUBIN,TOTAL 0.1 mg/dL (0.2-1.0); CREATININE 2.5 mg/dL (0.6-1.3); MAGNESIUM 1.9 mg/dL (1.8-2.4); PHOSPHORUS 3.9 mg/dL (2.5-4.9); POTASSIUM 3.4 mmol/L (3.5-5.1); TOTAL PROTEIN, SERUM 5.4 g/dL (6.4-8.2)
[2021-02-10 05:19] LABS: BASOPHILS % (AUTO) 0.5 % (0.0-2.0); EOSINOPHILS % (AUTO) 3.6 % (0.0-6.0); LYMPHOCYTES % (AUTO) 16.5 % (20.0-44.0); MEAN CORPUSCULAR HGB CONC 33 g/dl (31.0-36.0); MEAN CORPUSCULAR VOLUME 85 fL (80-96); MONOCYTES # (AUTO) 0.6 K/uL (0.1-1.30); MONOCYTES % (AUTO) 9.6 % (2.0-12.0); NEUTROPHILS % (AUTO) 69.8 % (43.0-81.0); PLATELET COUNT (AUTO) 167 K/uL (150-450); RED BLOOD CELL COUNT(AUTO) 2.38 MIL/uL (4.5-6.0); WHITE BLOOD COUNT (AUTO) 5.8 K/uL (4.3-11.0)
[2021-02-10 05:42] LABS: HEMATOCRIT 20 % (39-51); HEMOGLOBIN 6.6 g/dL (13.5-17.5)
--- NOTE | 2021-02-10 06:26 | NUR ---
RN NOTE PT HGB 6.[address] MOODY 2X. AWAITING FOR CALL BACK.
--- NOTE | 2021-02-10 06:54 | NUR ---
RN CLOSING NOTES PATIENT ASLEEP IN BED, NO SOB, NO DISTRESS, PATIENT TOLERATING RA SATURATING 98-99%. WITH ROSALINDA DRAIN IN L HIP INTACT DRAINING 120 CC SANGUINEOUS OUTPUT. SUPRAPUBIC PATENT DRAINING YELLOWISH URINE OUTPUT WITH MINIMAL LEAKING ON THE SITE. ALL DUE MEDS GIVEN ORDERED. SAFETY MEASURES IN PLACE. HOB ELEVATED. CALL LIGHT WITHIN REACH. ALL NEEDS ATTENDED PROMPTLY. ENDORSED.
[2021-02-10 07:00] LABS: EOSINOPHILS % (MANUAL) 2 % (0-4); LYMPHOCYTES % (MANUAL) 9 % (16-48); MONOCYTES % (MANUAL) 4 % (0-11.0); NEUTROPHILS % (MANUAL) 85 (42-76)
--- NOTE | 2021-02-10 07:30 | NUR ---
ORACLE MANUFACTURING CONSULTANT OPENING NOTES Patient is alert and oriented. Breathing even and unlabored. On room air with 02 sat of 98%. Double lumen femoral line noted with d5ns running at 100 cc/hour. HOB kept elevated. ROSALINDA drains noted to left upper thigh , will monitor drainage. Call light with in reach. Bed is in lowest and locked position.
--- NOTE | 2021-02-10 09:15 | NUR ---
Patient started of PRBC 1 unit due to hgb of 6.6. Will monitor for s/s of infection.
[2021-02-10] MEDS: DAKINS QUARTER STRENGTH (0.125%) 480 ML BOTTLE TOP SCH (09:34)
[2021-02-10] MEDS: IV D5/ 0.9% NACL 1,000 ML IV PRN (09:35)
--- NOTE | 2021-02-10 14:00 | NUR ---
Received an order for [address] reno. made aware that patient already had one unit. Per md to cancel the ordered dose.
--- NOTE | 2021-02-10 14:15 | NUR ---
Patient transferred to Med surg in stable condition. Bedside report given to SANDRA Aquino. Patient provided wound care prior to transfer. Noted with output of 850 cc and no bm. Franko drain #1 had 35 cc and #2 drain hdd 8 cc.
--- NOTE | 2021-02-10 14:16 | NUR ---
RN NOTES PATIENT TRANSFERRED TO UNIT AT ROOM 328-1, ACCOMPANIED BY 2 ICU NURSES.
--- NOTE | 2021-02-10 16:00 | NUR ---
RN NOTES PATIENT SEEN BY GARY CALLEJAS, AND PERFORMED WOUND EVAL AND DRESSING CHANGE. PATIENT CURRENTLY RESTING IN BED.
--- NOTE | 2021-02-10 19:39 | NUR ---
RN NOTES [facility] BED DELIVERED TODAY FOR PATIENT; TRANSFERRED TO NEW BED. NOT IN ACUTE DISTRESS. ROSALINDA DRAINS NOTED W/ SEROSANGUINEOUS DRAINAGE. PICC LINE INTACT AND PATENT; IVF PAUSED FOR NOW PER PATIENT REQUEST. ABLE TO EAT AND DRINK. SUPRAPUBIC CATH INTACT AND DRAINING YELLOW-COLORED URINE. ENDORSED TO INSURANCE PROCESSOR RN FOR SOM.
[2021-02-10] MEDS: SODIUM BICARBONATE 650 MG TABLET PO SCH (21:23)
[2021-02-11] MEDS: HYDROMORPHONE INJ 2 MG/ML DISP.SYRIN IV PRN ×7 (01:30→19:38)
--- NOTE | 2021-02-11 06:10 | NUR ---
MS RN NOTES AWAKE & RESPONSIVE. NOT IN ANY DISTRESS. NO SOB NOTED. DENIES ANY PAIN OR DISCOMFORT AT THIS TIME. WITH PICC LINE PATENT & INTACT. AM CARE DONE. MONITORED ACCORDINGLY. CALL LIGHT WITHIN REACH. BED IN LOWEST POSITION. SR UP X 3 WITH BED ALARM ON FOR SAFETY. WILL ENDORSE TO NEXT SHIFT.
[2021-02-11 07:31] LABS: BASOPHILS % (AUTO) 0.4 % (0.0-2.0); EOSINOPHILS % (AUTO) 3.7 % (0.0-6.0); HEMATOCRIT 23 % (39-51); HEMOGLOBIN 7.5 g/dL (13.5-17.5); LYMPHOCYTES # (AUTO) 1.1 K/uL (0.8-4.8); LYMPHOCYTES % (AUTO) 16.2 % (20.0-44.0); MEAN CORPUSCULAR HGB CONC 32 g/dl (31.0-36.0); MEAN CORPUSCULAR VOLUME 86 fL (80-96); MONOCYTES # (AUTO) 0.6 K/uL (0.1-1.30); MONOCYTES % (AUTO) 9.4 % (2.0-12.0); NEUTROPHILS # (AUTO) 4.6 K/uL (1.8-8.9); NEUTROPHILS % (AUTO) 70.3 % (43.0-81.0); PLATELET COUNT (AUTO) 185 K/uL (150-450); RED BLOOD CELL COUNT(AUTO) 2.73 MIL/uL (4.5-6.0); WHITE BLOOD COUNT (AUTO) 6.5 K/uL (4.3-11.0)
--- NOTE | 2021-02-11 07:49 | NUR ---
RN OPENING NOTE PT AWAKE IN BED RESTING. ON RA WITH NO SOB OR RESPIRATORY DISTRESS PRESENT. COMPLAINT OF PAIN PRESENT, PAIN MEDS GIVEN PER PROTOCOL. NO NAUSEA. NO EDEMA PRESENT. SUPRAPUBIC CATHETER PRESENT AND DRAINING WELL. ON BEDREST D/T PARAPLEGIA. SKIN ISSUES PRESENT, WOUND CARE ORDERED, PICTURES IN CHART. PICC LINE PRESENT. ON L FEMORAL AND FLUSHES WELL. LABS AND ORDERS REVIEWED. SAFETY MEASURES IN PLACE. SIDE RAILS RAISED. BED LOWERED. CALL LIGHT WITHIN REACH. WILL CONTINUE TO MONITOR.
[2021-02-11 08:00] VITALS: BP 116/75
[2021-02-11 08:11] LABS: ALBUMIN 1.5 g/dL (3.4-5.0); BILIRUBIN,TOTAL 0.2 mg/dL (0.2-1.0); CALCIUM, SERUM 7.3 mg/dL (8.5-10.1); CREATININE 2.1 mg/dL (0.6-1.3); MAGNESIUM 1.9 mg/dL (1.8-2.4); PHOSPHORUS 3.2 mg/dL (2.5-4.9); POTASSIUM 3.9 mmol/L (3.5-5.1); TOTAL PROTEIN, SERUM 5.5 g/dL (6.4-8.2)
[2021-02-11] MEDS: SODIUM BICARBONATE 650 MG TABLET PO SCH ×2 (09:02→16:34)
[2021-02-11] MEDS: DAKINS QUARTER STRENGTH (0.125%) 480 ML BOTTLE TOP SCH (09:03)
[2021-02-11] MEDS: FLUCONAZOLE IN NS 100 MG in PREMIX 1 EA IV SCH (11:31)
[2021-02-11 16:00] VITALS: BP 133/69
[2021-02-11] MEDS: IV D5/ 0.9% NACL 1,000 ML IV PRN (18:49)
--- NOTE | 2021-02-11 19:01 | NUR ---
RN CLOSING NOTES PATIENT AWAKE IN BED RESTING. ON ROOM AIR , NO RESPIRATORY DISTRESS PRESENT. COMPLAINT OF PAIN, PAIN MEDS GIVEN PER PROTOCOL. NO NAUSEA. SUPRAPUBIC CATHETER PRESENT AND DRAINING WELL. ON BEDREST D/T PARAPLEGIA. SKIN ISSUES PRESENT, WOUND CARE ORDERED, PICTURES IN CHART. PICC LINE PRESENT. ON L FEMORAL AND FLUSHES WELL. SAFETY MEASURES IN PLACE. SIDE RAILS RAISED. BED IN LOW AND LOCK POSITION. CALL LIGHT, BEDSIDE TABLE AND BELONGINGS WITHIN REACH. WILL ENDORSE TO SILK WORKER.
--- NOTE | 2021-02-11 19:30 | NUR ---
RN OPENING NOTES: RECEIVED PT A/OX4 IN BED IN NO S/SX OF ACUTE DISTRESS AT THIS TIME. NO SOB NOTED. PATIENT'S BREATHING IS EVEN AND UNLABORED. PATIENT IS ON ROOM AIR; TOLERATING WELL. PATIENT ON REGULAR DIET; TOLERATES WELL. NOTED IV SITE ON L FEMORAL PICC LINE ; PATENT, INTACT AND FLUSHING WELL; NO S/S OF INFECTION OR INFILTRATION. PT ALSO HAS 2 L HIP ROSALINDA BOTH SECURED AND INTACT WITH SMALL OUTPUT NOTED AT THE START OF THE SHIFT. SUPRAPUBIC IN PLACE, MODERATE URINE OUTPUT NOTED.ON SPECIALTY MATRESS. SAFETY MEASURES HAVE BEEN PROVIDED AND IMPLEMENTED. PATIENT BED ALARM IS ON. HEAD OF BED ELEVATED. BED IS LOCKED, IN LOWEST POSITION AND SIDE RAILS UP. CALL LIGHT WITHIN REACH OF THE PATIENT. APPLICABLE ISOLATION PRECAUTIONS IN PLACE. WILL CONTINUE TO MONITOR AND REASSESS FOR ANY CHANGES AND WILL CARRY OUT ANY ONGOING AND ACTIVE MD ORDER.
[2021-02-11 20:00] VITALS: BP 130/69
[2021-02-12] MEDS: HYDROMORPHONE INJ 2 MG/ML DISP.SYRIN IV PRN ×10 (01:40→22:39)
--- NOTE | 2021-02-12 01:40 | NUR ---
RN notes Pt is complaining of back and L hip pain 10/10 on pain scale and requesting pain meds. Administered dilaudid 2 mg/iv push as ordered for pain. VS as follows : BP 138/82, pulse 94. safety precautions is maintained. Primary nurse is aware and informed.
--- NOTE | 2021-02-12 04:00 | NUR ---
RN NOTES NO NOTED CHANGES IN PATIENT CONDITION AT THIS TIME; NO SIGNS OF ACUTE RESPIRATORY DISTRESS. AM PATIENT CARE & WOUND CARE RENDERED. WILL CONTINUE TO MONITOR AND REASSESS FOR ANY CHANGES THROUGHOUT THE SHIFT.
--- NOTE | 2021-02-12 07:39 | NUR ---
MS RN OPENING NOTE PT RECEIVED AWAKE; A/Ox4. PT APPEARS PLEASANT AND COMFORTABLE WITH MINOR PAIN; HE HAS MED ORDERS FOR PAIN THAT WILL BE FOLLOWED ACCORDINGLY. PT WILL BE CONTINUOUSLY MONITORED THROUGHOUT THE SHIFT.
[2021-02-12 08:00] VITALS: BP 130/77
[2021-02-12 08:07] LABS: BASOPHILS % (AUTO) 0.6 % (0.0-2.0); EOSINOPHILS % (AUTO) 4.3 % (0.0-6.0); HEMATOCRIT 24 % (39-51); HEMOGLOBIN 7.7 g/dL (13.5-17.5); LYMPHOCYTES % (AUTO) 19.7 % (20.0-44.0); MEAN CORPUSCULAR HGB CONC 32 g/dl (31.0-36.0); MEAN CORPUSCULAR VOLUME 85 fL (80-96); MONOCYTES % (AUTO) 9.8 % (2.0-12.0); NEUTROPHILS % (AUTO) 65.6 % (43.0-81.0); PLATELET COUNT (AUTO) 196 K/uL (150-450); RED BLOOD CELL COUNT(AUTO) 2.79 MIL/uL (4.5-6.0); WHITE BLOOD COUNT (AUTO) 6.8 K/uL (4.3-11.0)
[2021-02-12 08:08] LABS: LYMPHOCYTES # (AUTO) 1.3 K/uL (0.8-4.8); MONOCYTES # (AUTO) 0.7 K/uL (0.1-1.30); NEUTROPHILS # (AUTO) 4.5 K/uL (1.8-8.9)
[2021-02-12 08:34] LABS: ALBUMIN 1.6 g/dL (3.4-5.0); BILIRUBIN,TOTAL 0.2 mg/dL (0.2-1.0); CALCIUM, SERUM 7.7 mg/dL (8.5-10.1); CREATININE 1.8 mg/dL (0.6-1.3); MAGNESIUM 1.6 mg/dL (1.8-2.4); PHOSPHORUS 2.6 mg/dL (2.5-4.9); POTASSIUM 3.7 mmol/L (3.5-5.1); TOTAL PROTEIN, SERUM 5.9 g/dL (6.4-8.2)
[2021-02-12] MEDS: SODIUM BICARBONATE 650 MG TABLET PO SCH ×2 (09:05→17:42)
[2021-02-12] MEDS ORDERED: Magnesium 1GM/D5W 100ML PREMIX 100 ML IV SCH (09:30)
[2021-02-12] MEDS: FLUCONAZOLE IN NS 100 MG in PREMIX 1 EA IV SCH (11:30)
[2021-02-12] MEDS ORDERED: Magnesium 1GM/D5W 100ML PREMIX 100 ML IV ONE (12:29)
[2021-02-12] MEDS: PROPRANOLOL LA 60 MG CAP.SA.24H PO SCH (12:35)
[2021-02-12 16:00] VITALS: BP 145/83
[2021-02-12] MEDS: DAKINS QUARTER STRENGTH (0.125%) 480 ML BOTTLE TOP SCH (17:47)
--- NOTE | 2021-02-12 18:52 | NUR ---
RN NOTE FECAL DISIMPACTION DONE. NO S/S OF BLEEDING. PT REPORTS RELIEF. WILL CONTINUE TO MONITOR
--- NOTE | 2021-02-12 18:53 | NUR ---
MS RN CLOSING NOTE PT IS AWAKE; A/Ox4. PT STATES HE IS CURRENTLY COMFORTABLE; PT'S PAIN HAS BEEN THOROUGHLY MONITORED AND MANAGED THROUGHOUT SHIFT; PT HAD A DIGITAL DISIMPACTION PERFORMED SUCCESSFULLY; PT REPORTS RELIEF. SAFETY MEASURES: RAILS UP X2, BED AT LOWEST POISTION, CALL LIGHT WITHIN REACH. WILL ENDORSE TO BEEF SELECTOR FOR SOM.
--- NOTE | 2021-02-12 19:20 | NUR ---
ADMINISTERED DILAUDID PER MD ORDER FOR PAIN. VS WNL. WILL CONTINUE TO MONITOR.
[2021-02-12 20:00] VITALS: BP 115/65
--- NOTE | 2021-02-12 20:00 | NUR ---
MS SANDRA OPENING NOTES RECEIVED PT IN BED, WATCHING TV. AOx4. ABLE TO MAKE NEEDS KNOWN. ON RA AND TOLERATING WELL. NO SOB NOTED. NO S/SX OF RESPIRATORY DISTRESS NOTED. IV ACCESS IN L FEMORAL PICC LINE. IV IS INTACT, PATENT, AND FLUSHING WELL. PT STATED 11/16 PAIN; TREATED WITH DILAUDID. SAFETY PRECAUTIONS IN PLACE: BED IN LOWEST, LOCKED POSITION, SIDERAILS UPx2, AND BRAKES ON. TABLE AND CALL LIGHT WITHIN REACH. WILL CONTINUE TO MONITOR. Addendum: 02/12/21 at 2020 by ESTELLE METZGER RN BOTH MAIKEL GUTIERREZ DRAINAGE DRAINING SANGUINEOUS DRAINAGE. SUPRAPUBIC CATHETER DRAINING CLOUDY, YELLOW URINE
--- NOTE | 2021-02-12 22:39 | NUR ---
ADMINISTERED DILAUDID FOR PAIN PER MD ORDER. VS WNL. WILL CONTINUE TO MONITOR.
[2021-02-13] MEDS: HYDROMORPHONE INJ 2 MG/ML DISP.SYRIN IV PRN ×7 (01:41→22:59)
--- NOTE | 2021-02-13 01:41 | NUR ---
ADMINISTERED DILAUDID FOR PAIN PER MD ORDER. VS WNL. WILL CONTINUE TO MONITOR.
[2021-02-13] MEDS: QUETIAPINE FUMARATE 25 MG TABLET PO PRN ×2 (02:12→22:11)
--- NOTE | 2021-02-13 06:36 | NUR ---
ADMINISTERED DILAUDID FOR PAIN PER MD ORDER. VS WNL. WILL CONTINUE TO MONITOR.
--- NOTE | 2021-02-13 06:56 | NUR ---
RN CLOSING NOTES PT IN BED, ASLEEP, AWAKENS TO VERBAL STIMULI. AOx4. ABLE TO MAKE NEEDS KNOWN. ON RA AND TOLERATING WELL. NO SOB NOTED. NO S/SX OF RESPIRATORY DISTRESS NOTED. IV ACCESS IN L FEMORAL PICC LINE. IV IS INTACT, PATENT, AND FLUSHING WELL. BOTH MAIKEL GUTIERREZ DRAIN DRAINING SANGUINEOUS DRAINAGE. SUPRAPUBIC CATHETER DRAINING CLOUDY, YELLOW URINE. ALL NEEDS MET. PT KEPT CLEAN AND DRY. TREATED PAIN THROUGHOUT SHIFT. SAFETY PRECAUTIONS IN PLACE: BED IN LOWEST, LOCKED POSITION, SIDERAILS UPx2, AND BRAKES ON. TABLE AND CALL LIGHT WITHIN REACH. WILL ENDORSE TO ONCOMING SHIFT FOR SOM.
[2021-02-13 07:26] LABS: BASOPHILS # (AUTO) 0.1 K/uL (0.0-0.2); BASOPHILS % (AUTO) 0.7 % (0.0-2.0); HEMATOCRIT 24 % (39-51); HEMOGLOBIN 7.9 g/dL (13.5-17.5); LYMPHOCYTES # (AUTO) 1.4 K/uL (0.8-4.8); LYMPHOCYTES % (AUTO) 18.6 % (20.0-44.0); MEAN CORPUSCULAR HGB CONC 33 g/dl (31.0-36.0); MEAN CORPUSCULAR VOLUME 85 fL (80-96); MONOCYTES # (AUTO) 0.6 K/uL (0.1-1.30); MONOCYTES % (AUTO) 7.9 % (2.0-12.0); NEUTROPHILS # (AUTO) 5.2 K/uL (1.8-8.9); NEUTROPHILS % (AUTO) 67.8 % (43.0-81.0); PLATELET COUNT (AUTO) 230 K/uL (150-450); RED BLOOD CELL COUNT(AUTO) 2.83 MIL/uL (4.5-6.0); WHITE BLOOD COUNT (AUTO) 7.7 K/uL (4.3-11.0)
--- NOTE | 2021-02-13 07:29 | NUR ---
RN OPENING NOTE- RECEIVED PT IN BED, WATCHING TV. AOx4. ABLE TO MAKE NEEDS KNOWN. ON RA AND TOLERATING WELL. NO SOB NOTED. NO S/SX OF RESPIRATORY DISTRESS NOTED. IV ACCESS IN L FEMORAL PICC LINE. ROSALINDA DRAINS TO ABD. MONITORING. SAFETY PRECAUTIONS IN PLACE: BED IN LOWEST, LOCKED POSITION, SIDERAILS UP X TWO. TABLE AND CALL LIGHT WITHIN REACH. WILL CONTINUE TO MONITOR.
[2021-02-13 08:00] VITALS: BP 130/69
[2021-02-13 08:03] LABS: ALBUMIN 1.6 g/dL (3.4-5.0); BILIRUBIN,TOTAL 0.2 mg/dL (0.2-1.0); CREATININE 1.9 mg/dL (0.6-1.3); PHOSPHORUS 2.7 mg/dL (2.5-4.9); POTASSIUM 4.4 mmol/L (3.5-5.1); TOTAL PROTEIN, SERUM 6.3 g/dL (6.4-8.2)
[2021-02-13] MEDS: PROPRANOLOL LA 60 MG CAP.SA.24H PO SCH (08:53)
[2021-02-13] MEDS: SODIUM BICARBONATE 650 MG TABLET PO SCH ×2 (08:54→17:45)
[2021-02-13] MEDS: DAKINS QUARTER STRENGTH (0.125%) 480 ML BOTTLE TOP SCH (08:54)
[2021-02-13] MEDS: FLUCONAZOLE IN NS 100 MG in PREMIX 1 EA IV SCH (11:28)
[2021-02-13 16:32] VITALS: BP 122/67
--- NOTE | 2021-02-13 17:30 | NUR ---
RN NOTE / WOUND CARE PERFORMED AT THIS TIME. CLEANSED AREAS W DAKINS SOLUTION, CLEANSED W NS COPIOUSLY, PETROLEUM GAUZE APPLIED TO AREAS, DRY 4X4 GAUZE COVERING W ABD PAD AND WRAPPED W KERLIX. MINIMAL EXUDATE, SOME SEROUS DRAINAGE TO RTF FOOT, LT FOOT AND SACRAL REGIONS. ERYTHEMS PRESENT, NO ODOR, NO PURULENCE, NO INFECTION SX PRESENT. TOLERATED WELL. PHOTOS TAKEN FOR CHART
--- NOTE | 2021-02-13 18:42 | NUR ---
RN CLOSING NOTE- PT CALM , RESTING QUIETLY IN BED, NEEDS ATTENDED, VS TABLE. COMFORTABLE AT PRESENT. SIDE RAILS UP, BED LOCKED, CALL LIGHT IN REACH.
--- NOTE | 2021-02-13 19:43 | NUR ---
RN OPENING NOTES RECEIVED PT IN BED, WATCHING TV. AOx4. ABLE TO MAKE NEEDS KNOWN. ON RA AND TOLERATING WELL. NO SOB NOTED. NO S/SX OF RESPIRATORY DISTRESS NOTED. IV ACCESS IN L FEMORAL PICC LINE. IV IS INTACT, PATENT, AND FLUSHING WELL. BOTH MAIKEL GUTIERREZ DRAINS DRAINING SANGUINEOUS DRAINAGE. SUPRAPUBIC CATHETER DRAINING CLOUDY, YELLOW URINE. NO COMPLAINTS OF PAIN OR NAUSEA AT THIS TIME. SAFETY PRECAUTIONS IN PLACE: BED IN LOWEST, LOCKED POSITION, SIDERAILS UPx2, AND BRAKES ON. TABLE AND CALL LIGHT WITHIN REACH. WILL CONTINUE TO MONITOR.
--- NOTE | 2021-02-13 20:02 | NUR ---
ADMINISTERED DILAUDID FOR PAIN PER MD ORDER. VS WNL. WILL CONTINUE TO MONITOR.
--- NOTE | 2021-02-13 22:59 | NUR ---
ADMINISTERED DILAUDID FOR PAIN PER MD ORDER. VS WNL. WILL CONTINUE TO MONITOR.
[2021-02-13 23:50] VITALS: BP 126/64
[2021-02-14] MEDS: HYDROMORPHONE INJ 2 MG/ML DISP.SYRIN IV PRN ×7 (04:00→23:20)
--- NOTE | 2021-02-14 04:00 | NUR ---
ADMINISTERED DILAUDID FOR PAIN PER MD ORDER. VS WNL. WILL CONTINUE TO MONITOR.
--- NOTE | 2021-02-14 06:43 | NUR ---
RN CLOSING NOTES PT IN BED, ASLEEP, AWAKEN TO VERBAL STIMULI. AOx4. ABLE TO MAKE NEEDS KNOWN. ON RA AND TOLERATING WELL. NO SOB NOTED. NO S/SX OF RESPIRATORY DISTRESS NOTED. IV ACCESS IN L FEMORAL PICC LINE. IV IS INTACT, PATENT, AND FLUSHING WELL. BOTH MAIKEL GUTIERREZ DRAINS DRAINING SANGUINEOUS DRAINAGE. SUPRAPUBIC CATHETER DRAINING CLOUDY, YELLOW URINE. NO COMPLAINTS OF NAUSEA THROUGHOUT SHIFT. TREATED PAIN THROUGHOUT SHIFT. ALL NEEDS MET. PT KETP CLEAN AND DRY. REINFORCED WOUND DRESSINGS. SAFETY PRECAUTIONS IN PLACE: BED IN LOWEST, LOCKED POSITION, SIDERAILS UPx2, AND BRAKES ON. TABLE AND CALL LIGHT WITHIN REACH. WILL ENDORSE TO ONCOMING SHIFT FOR SOM.
--- NOTE | 2021-02-14 07:43 | NUR ---
RN OPENING NOTE- RECEIVED PT IN BED, WATCHING TV. AOx4. ABLE TO MAKE NEEDS KNOWN. ON RA AND TOLERATING WELL. NO SOB NOTED. NO S/SX OF RESPIRATORY DISTRESS NOTED. BLOOD DRAWN FROM PICC W NO ISSUES. IV DILAUDID 2 MG ADMINISTERED FOR PAIN. IV ACCESS IN L FEMORAL PICC LINE. ROSALINDA DRAINS TO ABD. MONITORING. SAFETY PRECAUTIONS IN PLACE: BED IN LOWEST, LOCKED POSITION, SIDERAILS UP X TWO. TABLE AND CALL LIGHT WITHIN REACH. WILL CONTINUE TO MONITOR.
[2021-02-14 07:45] LABS: BASOPHILS % (AUTO) 0.5 % (0.0-2.0); EOSINOPHILS % (AUTO) 4.1 % (0.0-6.0); HEMATOCRIT 24 % (39-51); LYMPHOCYTES # (AUTO) 1.8 K/uL (0.8-4.8); LYMPHOCYTES % (AUTO) 20.6 % (20.0-44.0); MEAN CORPUSCULAR HGB CONC 33 g/dl (31.0-36.0); MEAN CORPUSCULAR VOLUME 85 fL (80-96); MONOCYTES # (AUTO) 0.7 K/uL (0.1-1.30); MONOCYTES % (AUTO) 8.2 % (2.0-12.0); NEUTROPHILS # (AUTO) 5.7 K/uL (1.8-8.9); NEUTROPHILS % (AUTO) 66.6 % (43.0-81.0); PLATELET COUNT (AUTO) 290 K/uL (150-450); RED BLOOD CELL COUNT(AUTO) 2.85 MIL/uL (4.5-6.0); WHITE BLOOD COUNT (AUTO) 8.6 K/uL (4.3-11.0)
[2021-02-14 07:53] LABS: ALBUMIN 1.6 g/dL (3.4-5.0); BILIRUBIN,TOTAL 0.1 mg/dL (0.2-1.0); CALCIUM, SERUM 7.7 mg/dL (8.5-10.1); CREATININE 1.9 mg/dL (0.6-1.3); MAGNESIUM 1.8 mg/dL (1.8-2.4); PHOSPHORUS 2.8 mg/dL (2.5-4.9); POTASSIUM 4.6 mmol/L (3.5-5.1); TOTAL PROTEIN, SERUM 6.1 g/dL (6.4-8.2)
[2021-02-14 08:00] VITALS: BP 112/68
[2021-02-14] MEDS: SODIUM BICARBONATE 650 MG TABLET PO SCH ×2 (09:09→17:22)
[2021-02-14] MEDS: PROPRANOLOL LA 60 MG CAP.SA.24H PO SCH (09:10)
[2021-02-14] MEDS: DAKINS QUARTER STRENGTH (0.125%) 480 ML BOTTLE TOP SCH (09:12)
[2021-02-14] MEDS: ACETAMINOPHEN 325 MG TABLET PO PRN (09:44)
--- NOTE | 2021-02-14 09:44 | NUR ---
RN NOTE- PT W CHILLS , ' FEELING COLD' . TEMP TAKEN ORALLY 99.7 . TYLENOL 650 MG ADMINISTERED
--- NOTE | 2021-02-14 11:00 | NUR ---
RN NOTE- ORAL TEMP 99.2
--- NOTE | 2021-02-14 11:12 | NUR ---
RN NOTE - WOUND CARE DRESSINGS CHANGED TO BILATERAL FEED AT THIS TIME MINOR SEROUS DRAINAGE PRESENT NO SIGNS OF INFECTION PRESENT STERILE DRESSINGS APPLIED PER PROTOCOL
[2021-02-14] MEDS: FLUCONAZOLE (100 MG) 100 MG TABLET PO SCH (11:20)
[2021-02-14 16:00] VITALS: BP 107/64
--- NOTE | 2021-02-14 19:07 | NUR ---
RN CLOSING NOTES PT IN BED, ASLEEP, AWAKEN TO VERBAL STIMULI. AOx4. ABLE TO MAKE NEEDS KNOWN. ON RA AND TOLERATING WELL. NO SOB NOTED. NO S/SX OF RESPIRATORY DISTRESS NOTED. IV ACCESS IN L FEMORAL PICC LINE. IV IS INTACT, PATENT, AND FLUSHING WELL. BOTH MAIKEL GUTIERREZ DRAINS DRAINING SANGUINEOUS DRAINAGE. SUPRAPUBIC CATHETER DRAINING, YELLOW URINE. NO COMPLAINTS OF NAUSEA THROUGHOUT SHIFT. TREATED PAIN THROUGHOUT SHIFT. ALL NEEDS MET. PT CLEAN AND DRY. . SAFETY PRECAUTIONS IN PLACE: BED IN LOWEST, LOCKED POSITION, SIDERAILS UPx2, AND BRAKES ON. TABLE AND CALL LIGHT WITHIN REACH. WILL ENDORSE TO ONCOMING SHIFT
--- NOTE | 2021-02-14 20:29 | NUR ---
ADMINISTERED DILAUDID PER MD ORDER. VS WNL. WILL CONTINUE TO MONITOR.
[2021-02-14 20:36] VITALS: BP 120/64
--- NOTE | 2021-02-14 23:20 | NUR ---
ADMINISTERED DILAUDID PER MD ORDER. VS WNL. WILL CONTINUE TO MONITOR.
--- NOTE | 2021-02-15 00:17 | NUR ---
PT REQUESTED SEROQUEL FOR SLEEP. REMOVED 1 TABLET OF 25 MG FROM PYXIS SO OPENED AGAIN TO REMOVE SECOND TABLET OF 25 MG.
[2021-02-15] MEDS: QUETIAPINE FUMARATE 25 MG TABLET PO PRN ×2 (00:18→23:39)
[2021-02-15] MEDS: HYDROMORPHONE INJ 2 MG/ML DISP.SYRIN IV PRN ×8 (02:34→23:37)
--- NOTE | 2021-02-15 02:34 | NUR ---
ADMINISTERED DILAUDID PER MD ORDER. VS WNL. WILL CONTINUE TO MONITOR.
--- NOTE | 2021-02-15 05:37 | NUR ---
ADMINISTERED DILAUDID PER MD ORDER. VS WNL. WILL CONTINUE TO MONITOR.
[2021-02-15 06:55] LABS: BASOPHILS # (AUTO) 0.1 K/uL (0.0-0.2); EOSINOPHILS % (AUTO) 5.2 % (0.0-6.0); HEMATOCRIT 24 % (39-51); LYMPHOCYTES # (AUTO) 1.5 K/uL (0.8-4.8); LYMPHOCYTES % (AUTO) 18.4 % (20.0-44.0); MEAN CORPUSCULAR HGB CONC 33 g/dl (31.0-36.0); MEAN CORPUSCULAR VOLUME 85 fL (80-96); MONOCYTES # (AUTO) 0.7 K/uL (0.1-1.30); MONOCYTES % (AUTO) 8.3 % (2.0-12.0); NEUTROPHILS # (AUTO) 5.6 K/uL (1.8-8.9); NEUTROPHILS % (AUTO) 67.1 % (43.0-81.0); PLATELET COUNT (AUTO) 322 K/uL (150-450); RED BLOOD CELL COUNT(AUTO) 2.86 MIL/uL (4.5-6.0); WHITE BLOOD COUNT (AUTO) 8.3 K/uL (4.3-11.0)
--- NOTE | 2021-02-15 07:26 | NUR ---
RN CLOSING NOTES RECEIVED PT IN BED, WATCHING TV. AOx4. ABLE TO MAKE NEEDS KNOWN. ON RA AND TOLERATING WELL. NO SOB NOTED. NO S/SX OF RESPIRATORY DISTRESS NOTED. IV ACCESS IN L FEMORAL PICC LINE. IV IS INTACT, PATENT, AND FLUSHING WELL. BOTH MAIKEL GUTIERREZ DRAINS DRAINING SANGUINEOUS DRAINAGE. SUPRAPUBIC CATHETER DRAINING CLOUDY, YELLOW URINE. TREATED PAIN THROUGHOUT SHIFT. ALL NEEDS MET. PT KEPT CLEAN AND DRY. SAFETY PRECAUTIONS IN PLACE: BED IN LOWEST, LOCKED POSITION, SIDERAILS UPx2, AND BRAKES ON. TABLE AND CALL LIGHT WITHIN REACH. WILL ENDORSE TO ONCOMING SHIFT FOR SOM.
--- NOTE | 2021-02-15 07:40 | NUR ---
RN MS NOTES PT IN BED, AWAKE, ALERT AND ORIENTED, DENIES PAIN, RESPIRATIONS NORMAL, F/C IN PLACE, DRAINING WELL WITH CLEAR, YELLOW URINE, ISOLATION PRECAUTIONS OBSERVED, CALL LIGHT WITHIN REACH, NEEDS ATTENDED.
[2021-02-15 07:49] LABS: ALBUMIN 1.6 g/dL (3.4-5.0); BILIRUBIN,TOTAL 0.3 mg/dL (0.2-1.0); CALCIUM, SERUM 7.8 mg/dL (8.5-10.1); CREATININE 1.8 mg/dL (0.6-1.3); MAGNESIUM 1.7 mg/dL (1.8-2.4); PHOSPHORUS 3.5 mg/dL (2.5-4.9); POTASSIUM 4.4 mmol/L (3.5-5.1); TOTAL PROTEIN, SERUM 6.2 g/dL (6.4-8.2)
[2021-02-15 08:00] VITALS: BP 101/59
[2021-02-15] MEDS: SODIUM BICARBONATE 650 MG TABLET PO SCH ×2 (08:42→17:15)
[2021-02-15] MEDS: DAKINS QUARTER STRENGTH (0.125%) 480 ML BOTTLE TOP SCH (08:50)
[2021-02-15] MEDS: PROPRANOLOL LA 60 MG CAP.SA.24H PO SCH (09:00)
[2021-02-15 09:25] LABS: EOSINOPHILS % (MANUAL) 6 % (0-4); LYMPHOCYTES % (MANUAL) 16 % (16-48); MONOCYTES % (MANUAL) 8 % (0-11.0); MYELOCYTES % 1 % (0-0); NEUTROPHILS % (MANUAL) 69 (42-76)
[2021-02-15] MEDS ORDERED: MAGNESIUM OXIDE 400 MG TABLET PO ONE (10:00)
[2021-02-15] MEDS: FLUCONAZOLE (100 MG) 100 MG TABLET PO SCH (11:26)
[2021-02-15 16:00] VITALS: BP 123/76
[2021-02-15 16:55] VITALS: BP 123/76
[2021-02-15] MEDS: ATORVASTATIN 40 MG TABLET PO SCH (17:15)
--- NOTE | 2021-02-15 18:13 | NUR ---
RN MS NOTES PT IN BED, RESTING, USING HIS IPAD, NO COMPLAINT AT THIS TIME, PAIN MEDS GIVEN ORDERED, NOT IN DISTRESS, WITH GOOD APPETITE, PM MEDS GIVEN, WOUND TREATMENTS DONE ORDERED, ALL NEEDS ATTENDED.
--- NOTE | 2021-02-15 19:30 | NUR ---
MS/RN OPENING NOTE RECEIVED PATIENT RESTING IN BED. AWAKE, ALERT AND ORIENTED X 4. ABLE TO MAKE NEEDS KNOWN. DENIES PAIN AT THIS TIME. CONTINUES ON ROOM AIR WITH NO S/SX OF RESPIRATORY DISTRESS NOTED. IV ACCESS TO LEFT FEMORAL PICC LINE INTACT, PATENT AND SALINE LOCKED. SUPRAPUBIC CATHETER IN PLACE DRAINING CLEAR,YELLOW URINE TO GRAVITY. ROSALINDA DRAINS X 2 NOTED WITH MINIMAL AMOUNT OF DRAINAGE. CALL LIGHT WITHIN REACH. ASPIRATION, FALL AND SAFETY PRECAUTIONS MAINTAINED. WILL CONTINUE TO MONITOR.
[2021-02-15 20:00] VITALS: BP 107/64
[2021-02-15] MEDS ORDERED: SILVER NITRATE APPLICATOR 1 EA BOX TP ONE (20:00)
[2021-02-15] MEDS ORDERED: LIDOCAINE 1%-EPI 1:100,000 20 ML VIAL TP ONE (20:00)
--- NOTE | 2021-02-15 20:00 | NUR ---
MS/RN NOTE NEW ORDERS PLACED FOR ONE TIME SILVER NITRATE AND LIDOCAINE FOR SERIAL DEBRIDEMENT PROCEDURE. MEDICATIONS IN PATIENTS CASSETTE FOR PROCEDURE.
--- NOTE | 2021-02-15 21:30 | NUR ---
MS/RN NOTE OBTAINED CONSENT FOR SERIAL DEBRIDEMENT OF RIGHT BUTTOCK FROM PATIENT. CONSENT PLACED IN CHART.
[2021-02-16] VITALS (18 sets, daily range): BP systolic 63–158; BP diastolic 20–96
[2021-02-16] MEDS: HYDROMORPHONE INJ 2 MG/ML DISP.SYRIN IV PRN ×6 (01:37→18:18)
--- NOTE | 2021-02-16 06:30 | NUR ---
MS/RN CLOSING NOTE PATIENT CURRENTLY RESTING IN BED. AWAKE, ALERT AND ORIENTED X 4. ABLE TO MAKE NEEDS KNOWN. DENIES PAIN AT THIS TIME. CONTINUES ON ROOM AIR WITH NO S/SX OF RESPIRATORY DISTRESS NOTED. IV ACCESS TO LEFT FEMORAL PICC LINE INTACT, PATENT AND SALINE LOCKED. SUPRAPUBIC CATHETER IN PLACE DRAINING CLEAR,YELLOW URINE TO GRAVITY. ROSALINDA DRAINS X 2 NOTED WITH MINIMAL AMOUNT OF DRAINAGE. CALL LIGHT WITHIN REACH. ASPIRATION, FALL AND SAFETY PRECAUTIONS MAINTAINED. WILL ENDORSE PLAN OF CARE TO ONCOMING SHIFT.
--- NOTE | 2021-02-16 07:30 | NUR ---
RN MS NOTES PT IN BED, AWAKE, ALERT AND ORIENTED, NO COMPLAINT AT THIS TIME, BREATHING PATTERN NORMAL, NOTED WITH GOOD APPETITE, CALL LIGHT WITHIN REACH, KEPT WARM AND COMFORTABLE IN BED.
[2021-02-16] MEDS: PROPRANOLOL LA 60 MG CAP.SA.24H PO SCH (09:09)
[2021-02-16] MEDS: SODIUM BICARBONATE 650 MG TABLET PO SCH ×2 (09:09→17:28)
[2021-02-16] MEDS: DAKINS QUARTER STRENGTH (0.125%) 480 ML BOTTLE TOP SCH (09:11)
[2021-02-16] MEDS: FLUCONAZOLE (100 MG) 100 MG TABLET PO SCH (10:20)
--- NOTE | 2021-02-16 13:00 | NUR ---
RN MS NOTES PT IN BED, AWAKE, ALERT AND ORIENTED, PAIN MEDS GIVEN ORDERED, CALL LIGHT WITHIN REACH, NEEDS ATTENDED, ASSISTED IN REPOSITIONING.
[2021-02-16] MEDS ORDERED: FLUCONAZOLE IN NS 100 MG in PREMIX 1 EA IV SCH (17:00)
[2021-02-16] MEDS: ACETAMINOPHEN 325 MG TABLET PO PRN ×2 (17:28→21:51)
[2021-02-16] MEDS: ATORVASTATIN 40 MG TABLET PO SCH (17:28)
--- NOTE | 2021-02-16 17:28 | NUR ---
RN MS NOTES PT NOTED TO HAVE TEMP OF 100.1, WITH COMPLAINT OF SLIGHT HEADACHE, TYLENOL GIVEN ORDERED, COOLING MEASURES PROVIDED, PT WATCHING TV.
[2021-02-16] MEDS: MEROPENEM 1 G in IV NS 0.9% 100 ML IV SCH (18:18)
--- NOTE | 2021-02-16 18:36 | NUR ---
RN MS NOTES 1835 PT WAS WATCHING TV WHILE ROSALINDA DRAIN IS BEING MEASURED WHEN SUDDENLY PT LOOKED LIKE HE IS ABOUT TO COUGH, UNABLE TO SPEAK, SUDDENLY UNRESPONSIVE TO VERBAL AND PAINFUL STIMULI, PT DIAPHORETIC AND GETTING PALE IN COLOR, CHARGE NURSE AWARE AND CAME TO ASSESS PT, NO SIGN OF BREATHING NOTED, STARTED CPR RIGHT AWAY AND CODE BLUE WAS CALLED AT 1836, CODE TEAM ARRIVED CONSISTING OF NURSE EPITAXIAL REACTOR TECHNICIAN, PHARMACIST, RT'S, POWER PLANT TECHNICIAN'S AND DR. YANG, CPR CONTINUOUSLY PERFORMED WHILE DR. YANG GAVE ORDERS, MEDS ADMINISTERED, PT WAS INTUBATED AT 184. BP AT 1916 WAS 89/19, AT 1918 BP AT 107/74, BP AT 1927 WAS 83/68 WITH HR OF 119, AT 1929 BP WAS 60/36. BS AT 114. AT 1937, PT WAS TRANSFERRED TO ICU RM 257 VIA ACLS BY RN'S AND RT'S, PT RECEIVED BY ICU CHARGE NURSE AND POWER PLANT TECHNICIAN'S, REPORT GIVEN TO DR. TREY DEAN RN AT BEDSIDE PERFORMING PROCEDURE. UNABLE TO OBTAIN DR. YANG'S SIGNATURE HE IS STILL IN THE MIDDLE OF A STERILE PROCEDURE, ENDORSED CPR RECORD TO OUTSIDE SALESMAN EVELIA FOR ASSISTANCE IN HAVING CPR RECORD SIGNED BY DR. YANG AFTER THE PROCEDURE.
[2021-02-16] MEDS ORDERED: SODIUM BICARBONATE SYR 50 MEQ/50 ML DISP.SYRIN IV ONE ×2 (19:00→20:30)
[2021-02-16] MEDS ORDERED: NOREPINEPHRINE 4 MG/4 ML AMPUL IV ONE (19:00)
[2021-02-16] MEDS ORDERED: EPINEPHRINE (1:10,000) SYRINGE 1 MG/10 ML DISP.SYRIN IVP ONE (19:00)
[2021-02-16] MEDS ORDERED: EPINEPHRINE (1:1000) 1 MG/ML AMPUL SUBCUT ONE (19:00)
[2021-02-16] MEDS: EPINEPHRINE (1:1000) 10 MG in IV NS 0.9% 240 ML IV PRN ×4 (19:42→23:45)
--- NOTE | 2021-02-16 19:42 | NUR ---
RECEIVED PT FROM 3W ORALLY INTUBATED SETTING PER MD FIO2 100% SPO2 95%, ACCOMPANIED BY RT AND 3W AM SHIFT NURSE AND FIBER OPTICS SUPERVISOR'S, GREGORIO YANG MACHINE REPAIRMAN ALSO AT THE UNIT, PT IS CURRENTLY RUNNING LEVOPHED @ 1 MCG/KG/MIN EPINEPHRINE @ 1.2 MCG/KG/MIN AND NS BOLUS VIA RFEMORAL CENTRAL LINE, HOOKED TO MONITOR WITH READING SINUS TACHY 108 V/S CHECKED AND RECORDED, GREGORIO YANG MACHINE REPAIRMAN AT BEDSIDE AND WILL INSERT ARTERIAL LINE TO THIS PT, REPORT WAS RECEIVED FROM TEA FLORES OF 3W, WILL CONT TO MONITOR THIS PT
[2021-02-16 19:44] LABS: ABG BASE EXCESS -23.8 mmol/L; ABG PCO2 45.1 mmHg (35.0-45.0); ABG PH 6.902 (7.350-7.450); ABG PO2 78.1 mmHg (75.0-100.0); COHb 0.3 % (0.5-1.5); MetHb 0.6 % (0.0-1.5); O2Hb 83.1 % (94.0-97.0); SITE, ABG Left Femoral; VENT MODE, BG AMBUBAG
--- NOTE | 2021-02-16 19:52 | NUR ---
RT responded to code blue. pt orally intubated. ett size 7.5, 23@lip. vent settings: AC 26 500 100% +5. small thin secretions suctioned via ett. lung sounds clear. abg to follow post art line insertion. will continue to monitor
[2021-02-16] MEDS ORDERED: NOREPINEPHRINE 8 MG in IV D5W 242 ML IV PRN (20:00)
[2021-02-16] MEDS ORDERED: SODIUM BICARBONATE SYR 50 MEQ/50 ML DISP.SYRIN ONE (20:26)
[2021-02-16 20:30] LABS: ABG BASE EXCESS -20.1 mmol/L; ABG OXYGEN SATURATION 99.4 % (92.0-98.5); ABG PCO2 31.9 mmHg (35.0-45.0); ABG PH 7.067 (7.350-7.450); ABG PO2 445.1 mmHg (75.0-100.0); COHb 0.3 % (0.5-1.5); MetHb 0.4 % (0.0-1.5); O2Hb 98.7 % (94.0-97.0); SITE, ABG Other; VENT MODE, BG AC 26 500 100% +5
[2021-02-16] MEDS: PROPOFOL 100 ML IV PRN ×2 (20:30→23:40)
--- NOTE | 2021-02-16 20:35 | NUR ---
RT vent changes made post abg results per oscar ibrahim dnp
[2021-02-16] MEDS: NOREPINEPHRINE 32 MG in IV NS 0.9% 218 ML IV PRN (20:45)
[2021-02-16] MEDS: Sodium Bicarbonate 150 MEQ in IV D5W 1,000 ML IV PRN (21:00)
--- NOTE | 2021-02-16 21:00 | NUR ---
THERAPEUTIC HYPOTHERMIA ORDERED BY GREGORIO YANG RADIATION ONCOLOGY THERAPIST, INITIAL TEMP IS 100.4F, THERAPEUTIC HYPOTHERMIA INDUCTION ORDERED INITIATED COOLING MEASURE STARTED WILL CONT TO MONITOR THE PT
[2021-02-16 21:01] LABS: BASOPHILS # (AUTO) 0.3 K/uL (0.0-0.2); BASOPHILS % (AUTO) 0.9 % (0.0-2.0); EOSINOPHILS % (AUTO) 1.5 % (0.0-6.0); HEMATOCRIT 38 % (39-51); HEMOGLOBIN 11.1 g/dL (13.5-17.5); LYMPHOCYTES # (AUTO) 11.4 K/uL (0.8-4.8); LYMPHOCYTES % (AUTO) 29.2 % (20.0-44.0); MEAN CORPUSCULAR HGB CONC 29 g/dl (31.0-36.0); MEAN CORPUSCULAR VOLUME 91 fL (80-96); MONOCYTES # (AUTO) 0.9 K/uL (0.1-1.30); MONOCYTES % (AUTO) 2.2 % (2.0-12.0); NEUTROPHILS % (AUTO) 66.2 % (43.0-81.0); PLATELET COUNT (AUTO) 588 K/uL (150-450); RED BLOOD CELL COUNT(AUTO) 4.18 MIL/uL (4.5-6.0)
--- NOTE | 2021-02-16 21:11 | NUR ---
RT ett adjusted. pushed in 4 cm from 23cm to 27cm
[2021-02-16 21:39] LABS: WHITE BLOOD COUNT (AUTO) 39.2 K/uL (4.3-11.0)
[2021-02-16 21:52] LABS: BAND % (MANUAL) 12 % (0.0-5.0); EOSINOPHILS % (MANUAL) 1 % (0-4); LYMPHOCYTES % (MANUAL) 30 % (16-48); METAMYELOCYTES % 1 % (0-0); MONOCYTES % (MANUAL) 4 % (0-11.0); MYELOCYTES % 1 % (0-0); NEUTROPHILS % (MANUAL) 51 (42-76)
[2021-02-16] MEDS: LINEZOLID RTU BAG 600 MG in PREMIX 1 EA IV SCH (22:45)
[2021-02-16] MEDS ORDERED: LINEZOLID RTU BAG 300 ML IV ONE (23:08)
[2021-02-17] VITALS (100 sets, daily range): BP systolic 56–174; BP diastolic 16–127
[2021-02-17 00:17] LABS: CREATINE KINASE, TOTAL 425 U/L (39-308)
[2021-02-17 01:05] LABS: BILIRUBIN,DIRECT 0.2 mg/dL (0.0-0.2); BILIRUBIN,TOTAL 0.6 mg/dL (0.2-1.0)
[2021-02-17 01:06] LABS: MAGNESIUM 2.3 mg/dL (1.8-2.4)
[2021-02-17 01:10] LABS: PHOSPHORUS 9.1 mg/dL (2.5-4.9)
[2021-02-17 01:12] LABS: CALCIUM, SERUM 7.3 mg/dL (8.5-10.1); CARBON DIOXIDE 10 mmol/L (21-32); CHLORIDE 97 mmol/L (98-107); CREATININE 3.1 mg/dL (0.6-1.3); GLUCOSE 229 mg/dL (74-106); POTASSIUM 7.5 mmol/L (3.5-5.1); SODIUM SERUM 135 mmol/L (136-145); UREA NITROGEN, BLOOD 38 mg/dL (7-18)
[2021-02-17 01:13] LABS: ALANINE AMINOTRANSFERASE 90 U/L (12-78); ALBUMIN 1.5 g/dL (3.4-5.0); ALKALINE PHOSPHATASE 488 U/L (46-116); ASPARTATE AMINOTRANSFERASE 277 U/L (15-37); TOTAL PROTEIN, SERUM 6.3 g/dL (6.4-8.2)
--- NOTE | 2021-02-17 01:20 | NUR ---
REPORTED TO GREGORIO YANG NP THE CRITICAL LAB RESULTS OF k+7.5 LACTIC ACID 14.6 TROP 2.446 PHOS 9.1 GREGORIO YANG NP WILL MAKE AND ORDER
[2021-02-17] MEDS ORDERED: DEXTROSE 50%-WATER 50 ML DISP.SYRIN IVP ONE (02:00)
[2021-02-17] MEDS ORDERED: SODIUM POLYSTYRENE SULFONATE 15 G/60 ML BOTTLE PO ONE (02:00)
[2021-02-17] MEDS ORDERED: INSULIN REGULAR, HUMAN 100 UNIT/ML 3 ML VIAL SQ ONE (02:00)
[2021-02-17] MEDS ORDERED: ALBUMIN 25% 12.5 GM/50 ML BOTTLE IV ONE (02:00)
[2021-02-17] MEDS ORDERED: HEPARIN INFUSION/D5W 500 ML IV PRN (02:00)
[2021-02-17] MEDS ORDERED: SODIUM BICARBONATE SYR 50 MEQ/50 ML DISP.SYRIN IV ONE (02:00)
[2021-02-17] MEDS: EPINEPHRINE (1:1000) 10 MG in IV NS 0.9% 240 ML IV PRN ×2 (02:01→03:36)
[2021-02-17] MEDS: PROPOFOL 100 ML IV PRN ×8 (02:01→22:09)
[2021-02-17 02:09] LABS: ABG BASE EXCESS -13.6 mmol/L; ABG OXYGEN SATURATION 99.5 % (92.0-98.5); ABG PCO2 26.4 mmHg (35.0-45.0); ABG PH 7.265 (7.350-7.450); ABG PO2 262.1 mmHg (75.0-100.0); AaDO2 136.7 mmHg; MetHb 0.4 % (0.0-1.5); O2Hb 99.1 % (94.0-97.0); SITE, ABG Other; VENT MODE, BG AC 30 500 60% +5
[2021-02-17] MEDS: NOREPINEPHRINE 32 MG in IV NS 0.9% 218 ML IV PRN ×4 (02:12→21:01)
[2021-02-17] MEDS ORDERED: FUROSEMIDE 20 MG/2 ML VIAL IV STA (02:14)
[2021-02-17] MEDS ORDERED: IV NS 0.9% 2,000 ML IV STA (02:26)
[2021-02-17] MEDS ORDERED: SODIUM POLYSTYRENE SULFONATE 15 G/60 ML BOTTLE ONE (02:34)
[2021-02-17] MEDS ORDERED: INSULIN REGULAR, HUMAN 100 UNIT/ML 3 ML VIAL ONE (02:35)
[2021-02-17] MEDS ORDERED: ALBUMIN 25% 100 ML IV ONE ×2 (02:42→02:48)
[2021-02-17] MEDS ORDERED: DEXTROSE 50%-WATER 50 ML DISP.SYRIN ONE (02:53)
[2021-02-17] MEDS ORDERED: HEPARIN SODIUM, PORCINE 5000 UNITS/1 ML VIAL IV ONE (03:30)
[2021-02-17] MEDS: SODIUM CHLORIDE 1000 MG TABLET NG SCH ×4 (03:30→16:54)
[2021-02-17 03:57] LABS: CALCIUM, SERUM 6.4 mg/dL (8.5-10.1); CREATININE 3.5 mg/dL (0.6-1.3); POTASSIUM 4.6 mmol/L (3.5-5.1)
--- NOTE | 2021-02-17 04:00 | NUR ---
REPORTED TO GREGORIO YANG THAT SURGICAL WOUND WAS BLEEDING AND HE ORDER TO DC HEPARIN DRIP NOTED AND CARRIED
[2021-02-17 05:01] LABS: BASOPHILS # (AUTO) 0.4 K/uL (0.0-0.2); BASOPHILS % (AUTO) 0.5 % (0.0-2.0); EOSINOPHILS % (AUTO) 0.2 % (0.0-6.0); HEMATOCRIT 34 % (39-51); HEMOGLOBIN 10.4 g/dL (13.5-17.5); LYMPHOCYTES # (AUTO) 5.3 K/uL (0.8-4.8); MEAN CORPUSCULAR HGB CONC 31 g/dl (31.0-36.0); MEAN CORPUSCULAR VOLUME 88 fL (80-96); MONOCYTES % (AUTO) 2.3 % (2.0-12.0); NEUTROPHILS # (AUTO) 80.5 K/uL (1.8-8.9); PLATELET COUNT (AUTO) 584 K/uL (150-450); RED BLOOD CELL COUNT(AUTO) 3.83 MIL/uL (4.5-6.0)
[2021-02-17] MEDS: Sodium Bicarbonate 150 MEQ in IV D5W 1,000 ML IV PRN ×2 (05:09→17:21)
[2021-02-17 05:16] LABS: WHITE BLOOD COUNT (AUTO) 88.4 K/uL (4.3-11.0)
[2021-02-17] MEDS: MEROPENEM 1 G in IV NS 0.9% 100 ML IV SCH ×2 (06:32→17:02)
[2021-02-17 06:40] LABS: PHOSPHORUS 6.1 mg/dL (2.5-4.9)
[2021-02-17 07:22] LABS: BAND % (MANUAL) 1 % (0.0-5.0); LYMPHOCYTES % (MANUAL) 7 % (16-48); MONOCYTES % (MANUAL) 2 % (0-11.0); NEUTROPHILS % (MANUAL) 90 (42-76)
--- NOTE | 2021-02-17 07:50 | NUR ---
PT ON BED STILL SEDATED, ON ETT/VENT SETTING PER MD FIO2 60% SPO2 100% NO RESPIRATORU=Y DISTRESS NOTED, BEDSIDE MONITOR READS SINUS TACHY 100'S ON LEVOPHED 0.8 MCG/KG/MIN AND PROPOFOL @ 60 MCG/KG/MIN AND NaHCO3 @ 125 ml/hr INFUSING VIA RIJ 3L, PT STILL ON THERAPEUTIC HYPOTHERMIA WITH CURRENT TEMP 34.8 C, BED ON LOWEST POSITION AND LOCKED SIDE RAILS UP X2 WILL ENDORSE TO AM SHIFT NURSE
--- NOTE | 2021-02-17 08:00 | NUR ---
ICU/RN PT IS INTUBATED ON THE VENT AC MODE,FIO2-50%.S/P CARDIAC ARREST YESTERDAY.SEDATED WITH DIPRIVAN .ON LEVOPHED DRIP ,SODIUM BICARB DRIP.EPINEPHRINE DRIP OFF.RIGHT IJ TLC.RIGHT FEMORAL A=LINE.NG TUBE CLAMPED.SUPRAPUBIC CATHETER DRAINING WITH MINIMAL AMOUNT OF CLOUDY YELLOW URINE.PT IS PARAPLEGIC ,BLE CONTRACTED.MULTIPLY WOUNDS NOTED ALL OVER THE BODY.PT IS ON COOLING BLANKET PER HYPOTHERMIA PROTOCOL.T-94.3.LABS REVIEW. NOTIFIED. ABG DONE.CONTINUE MONITORING.
[2021-02-17] MEDS: SODIUM BICARBONATE 650 MG TABLET PO SCH ×2 (08:15→16:54)
[2021-02-17] MEDS: PROPRANOLOL LA 60 MG CAP.SA.24H PO SCH (08:16)
[2021-02-17] MEDS: DAKINS QUARTER STRENGTH (0.125%) 480 ML BOTTLE TOP SCH (08:16)
--- NOTE | 2021-02-17 09:00 | NUR ---
ICU/RN DUE MEDS ARE GIVEN .SUCTION PROVIDED.UNABLE TO PROVIDE SEDATION VACATION .PT IS CRITICAL.ON INTENTIONAL THERAPEUTIC HYPOTHERMIA.
[2021-02-17 09:27] LABS: ABG BASE EXCESS -11.6 mmol/L; ABG OXYGEN SATURATION 99.3 % (92.0-98.5); ABG PCO2 30.7 mmHg (35.0-45.0); ABG PH 7.278 (7.350-7.450); ABG PO2 215.8 mmHg (75.0-100.0); AaDO2 106.2 mmHg; COHb 0.3 % (0.5-1.5); MetHb 0.2 % (0.0-1.5); O2Hb 98.8 % (94.0-97.0); PEEP,BG 0 cm H2O; SITE, ABG A-Line; VT, ABG 500 mL
[2021-02-17 09:30] LABS: CALCIUM, SERUM 6.4 mg/dL (8.5-10.1); CREATININE 3.6 mg/dL (0.6-1.3); MAGNESIUM 2.2 mg/dL (1.8-2.4)
[2021-02-17] MEDS: LINEZOLID RTU BAG 600 MG in PREMIX 1 EA IV SCH ×2 (09:52→21:07)
[2021-02-17] MEDS: FLUCONAZOLE (100 MG) 100 MG TABLET PO SCH (10:00)
--- NOTE | 2021-02-17 13:00 | NUR ---
ICU/RN GREGORIO YANG PLACED NEW RIGHT IJ HD CATHETER AND NEW RIGHT FEMORAL TLC.
[2021-02-17] MEDS: HYDROMORPHONE INJ 2 MG/ML DISP.SYRIN IV PRN (13:09)
--- NOTE | 2021-02-17 15:00 | NUR ---
ICU/RN HD STARTED ORDERED. FAMILY AT BED SIDE .BRING ADVANCE DIRECTIVE.PT IS DNR STATUS.CHARGE NURSE NOTIFIED.GREGORIO YANG DNP NOTIFIED NEW ORDERS RECEIVED.
--- NOTE | 2021-02-17 16:00 | NUR ---
ICU/RN PT HAS NO GAG AND COUGH REFLEXES.NO CORNEAL REFLEXES .GREGORIO YANG NOTIFIED AND SEEN THE PT.NEW ORDERS RECEIVED.WOUND DRESSING DONE ORDERED.PT IS BLEEDING FROM THE WOUNDS AND FROM ROSALINDA SIDE. PM CARE PROVIDED.DURING HD BP DECREASED.LEVOPHED INCREASED.CONTINUE MONITORING.
[2021-02-17 16:01] LABS: CALCIUM, SERUM 6.2 mg/dL (8.5-10.1); CREATININE 2.9 mg/dL (0.6-1.3); MAGNESIUM 2.1 mg/dL (1.8-2.4); POTASSIUM 4.6 mmol/L (3.5-5.1)
[2021-02-17] MEDS: ATORVASTATIN 40 MG TABLET PO SCH (17:05)
--- NOTE | 2021-02-17 19:30 | NUR ---
RN OPENING NOTES: RECEIVED SEDATED PT A/OX IN BED IN NO S/SX OF ACUTE DISTRESS AT THIS TIME. ON MECHANICAL VENT; SETTINGS PRESCRIBED; PT TOLERATED WELL. AMBU BAG AT BED SIDE ALARMS SET PER PROTOCOL AND AUDIBLE. VENT PLUGGED IN TO RED OUTLET. PATIENT ON TELE MONITORING READING SINUS RHYTHM HR IS 93 AT THE TIME OF RECEIVED. PATIENT ON NPO. PT HAS A R FEM TRIPLE LUMEN CATH; PATENT, INTACT AND FLUSHING WELL; NO S/S OF INFECTION OR INFILTRATION. PT ALSO HAVE R IJ CATH AND R FEM A LINE BOTH SECURED AND INTACT NO SIGNS OF INFECTION. WITH IV FLUID (SODIUM BICARB IN D5W @125MLS/HR) RUNNING ORDERED. PT HAS RUNNING LEVO RECIEVED AT .4MCG/KG/MIN, AND PROPOFOL DRIP RECEIVED AT 40MCG/KG/MIN MONITORED AND TITRATED PER PROTOCOL. 2 L HIP ROSALINDA BOTH SECURED AND INTACT WITH SMALL OUTPUT NOTED AT THE START OF THE SHIFT. SUPRAPUBIC IN PLACE, WITH NO URINE OUTPUT AT THE TIME OF RECEIVED.ON SPECIALTY MATTRESS. ALSO PT IS ON COOLING BLANKET PER HYPOTHERMIA PROTOCOL; CURRENT TEMP IS AT 93.5. SAFETY MEASURES HAVE BEEN PROVIDED AND IMPLEMENTED. PATIENT BED ALARM IS ON. HEAD OF BED ELEVATED. BED IS LOCKED, IN LOWEST POSITION AND SIDE RAILS UP. CALL LIGHT WITHIN REACH OF THE PATIENT. APPLICABLE ISOLATION PRECAUTIONS IN PLACE. WILL CONTINUE TO MONITOR AND REASSESS FOR ANY CHANGES AND WILL CARRY OUT ANY ONGOING AND ACTIVE MD ORDER.
--- NOTE | 2021-02-17 20:05 | NUR ---
RECEIVED PT INTUBATED 7.5 ETT SECURED AT 27CM AT THE LIP. PT TOLERATING VENT SETTINGS. SX'D SMALL AMT OF TINGED SECRETIONS. VENT ALARMS SET AND AUDIBLE. CONTINUE TO MONITOR CLOSELY. Addendum: 02/17/21 at 2007 by KATE MONTAÑO RT Amended: Links added.
--- NOTE | 2021-02-17 20:35 | NUR ---
RN NOTES OBTAINED STOOL SPECIMEN FOR CDIFF AND WOUND DRAINAGE FROM R IJ FOR WOUND CX ORDERED. SENT TO LAB. AUTOMOTIVE PARTS COORDINATOR MADE AWARE.
--- NOTE | 2021-02-17 22:00 | NUR ---
RN NOTES CURRENT PT'S TEMP @94.5.STARTED INCREASING TEMP PER PROTOCOL 1 DEGREE PER HOUR; FROM 95 TO 96 AT THIS TIME. CO TEACHER MADE AWARE. WILL CONTINUE TO ASSESS AND MONITOR THROUGHOUT THE SHIFT.
--- NOTE | 2021-02-17 23:00 | NUR ---
SANDRA NOTES CURRENT PT'S TEMP @95. INCREASED TEMP BY 1 DEGREE; FROM 96 TO 97 AT THIS TIME. LAURA CHAMPION AWARE. WILL CONTINUE TO ASSESS AND MONITOR THROUGHOUT THE SHIFT. Addendum: 02/18/21 at 0003 by RADHA BURKETT RN 0000- PT'S TEMP @95.5, INCREASED TEMP BY 1 DEGREE; FROM 97 TO 98 AT THIS TIME. LAURA CHAMPION AWARE. WILL CONTINUE TO ASSESS AND MONITOR THROUGHOUT THE SHIFT. Addendum: 02/18/21 at 0114 by RADHA BURKETT RN 0100- PT'S TEMP @95.9, INCREASED TEMP BY 1 DEGREE; FROM 98 TO 99 AT THIS TIME. LAURA CHAMPION AWARE. WILL CONTINUE TO ASSESS AND MONITOR THROUGHOUT THE SHIFT. Addendum: 02/18/21 at 0207 by RADHA BURKETT RN 0200- PT'S TEMP @96.0, INCREASED TEMP BY 1 DEGREE; FROM 99 TO 100 AT THIS TIME. EDITORIAL DIRECTOR MADE AWARE. WILL CONTINUE TO ASSESS AND MONITOR THROUGHOUT THE SHIFT.
[2021-02-18] VITALS (12 sets, daily range): BP systolic 84–103; BP diastolic 11–65
[2021-02-18] MEDS: PROPOFOL 100 ML IV PRN (01:09)
[2021-02-18 01:18] LABS: CALCIUM, SERUM 5.6 mg/dL (8.5-10.1); POTASSIUM 6.9 mmol/L (3.5-5.1)
--- NOTE | 2021-02-18 01:20 | NUR ---
RN NOTES RECEIVED CRITICAL LAB (SPOKE WITH ONEAL): POTASSIUM: 6.9 CO2: 8 CALCIUM: 5.6, INFORMED ONCROLO WYLIE (DR. SPENCER); PER [facility] REPEAT LAB FOR RESULT ACCURACY AND DO STAT EKG.WILDLIFE BIOLOGY INTERNSHIP MADE AWARE.
--- NOTE | 2021-02-18 01:49 | NUR ---
RN NOTES EKG RESULTED; INFORMED ONCROLO WYLIE (DR. SPENCER) AND DISCUSSED CURRENT V/S AND CONCERNS. SECURED ORDER FOR 2ND PRESSOR (SON). FEATHER RENOVATOR MADE AWARE.
[2021-02-18] MEDS ORDERED: PHENYLEPHRINE 100 MG in IV NS 0.9% 240 ML IV PRN (02:00)
[2021-02-18] MEDS: Sodium Bicarbonate 150 MEQ in IV D5W 1,000 ML IV PRN (02:14)
[2021-02-18] MEDS: NOREPINEPHRINE 32 MG in IV NS 0.9% 218 ML IV PRN (02:31)
[2021-02-18] MEDS ORDERED: PHENYLEPHRINE 10 MG/ML VIAL ONE (02:33)
--- NOTE | 2021-02-18 02:38 | NUR ---
RN NOTES STARTED SON 2ND PRESSOR; BP: 87/43 HR: 90. WILL CONTINUE TO MONITOR AND ASSESS THROUGHOUT THE SHIFT. CRANE OPERATOR CAB MADE AWARE.
--- NOTE | 2021-02-18 03:00 | NUR ---
ICU NOTES Patient on multiple drips Levophed ,Liu Synephrine,Diprivan and Sodium Bicarb gtts.DNR status. Noted per monitor asystole in 3 leads.No palpable pulse and not audible by Doppler.No signs of breathing.Pupils fixed and dilated.Not responsive to noxious stimuli.All above signs not compatible for life.Pronounced . Addendum: 02/18/21 at 0402 by LIOR ACUNA RN Additional notes.Respiratory rate 0,Blood pressure 0/0
--- NOTE | 2021-02-18 03:08 | NUR ---
@0300 PT . VENT TURNED OFF. RN AT BEDSIDE.
--- NOTE | 2021-02-18 03:20 | NUR ---
RN NOTES NOTIFIED FAMILY ([facility]), ONCROLO WYLIE (DR. SPENCER), [facility] (TEGAN) AND [facility] (RICHIE; ) ABOUT PT'S . TELEVISION TUBE INSPECTOR WELL AWARE.
--- NOTE | 2021-02-18 03:30 | NUR ---
RN NOTES POST MORTEM DONE; PT'S BODY SENT TO [facility].
[2021-02-18 03:33] LABS: CALCIUM, SERUM 6.8 mg/dL (8.5-10.1); CREATININE 2.8 mg/dL (0.6-1.3)
[2021-02-18 03:42] LABS: POTASSIUM 7.8 mmol/L (3.5-5.1)
--- NOTE | 2021-02-18 06:40 | NUR ---
RN NOTES CALLED [facility]ABEL [facility] ([phone]) CONFIRMED THAT THEYVE WENT IN [place] AFTER PT GOT INTUBATED LAST 02.16.2021 AND TOOK HOME LAPTOP BAG WITH LAPTOP INSIDE, TABLET ([employer]) AND WALLET AND SOME CREDIT CARD. CURRENTLY LAPTOP BAG IS UNDER THE CARE OF ROLANDO CABRERA ([id number]/[phone]). ADVISED THAT OTHER BELONGINGS ARE READY FOR MEASURING MACHINE OPERATOR. SHE ACKNOWLEDGED. OFFICE INSPECTOR MADE AWARE.
== END 2021-02-18 03:00 | DRG 853 ==
LOC: TELE 01:13 → MED 01:41 → ICU 15:52 → MED 02-10 13:58 → ICU 02-16 19:35
PROVIDERS: ADMIT Nurse Practitioner Acute Care; ATTEND Nurse Practitioner Acute Care
PROC: 5A1935Z Respiratory Ventilation, Less than 24 Consecutive Hours (ICD-10-PCS; 2021-02-08)
PROC: 0BH17EZ Insertion of Endotracheal Airway into Trachea, Via Natural or Artificial Opening (ICD-10-PCS; 2021-02-08)
PROC: 30233N1 Transfusion of Nonautologous Red Blood Cells into Peripheral Vein, Percutaneous Approach (ICD-10-PCS; 2021-02-08)
PROC: 0QB70ZZ Excision of Left Upper Femur, Open Approach (ICD-10-PCS; 2021-02-08)
PROC: 0HR Skin and Breast, Replacement (ICD-10-PCS; 2021-02-08)
PROC: 0KBP0ZZ Excision of Left Hip Muscle, Open Approach (ICD-10-PCS; 2021-02-08)
PROC: 0KBW0ZZ Excision of Left Foot Muscle, Open Approach (ICD-10-PCS; principal; 2021-02-09)
PROC: 0KBT0ZZ Excision of Left Lower Leg Muscle, Open Approach (ICD-10-PCS; 2021-02-09)
PROC: 0LBT0ZZ Excision of Left Ankle Tendon, Open Approach (ICD-10-PCS; 2021-02-09)
PROC: 0LBW0ZZ Excision of Left Foot Tendon, Open Approach (ICD-10-PCS; 2021-02-09)
PROC: 0BH18EZ Insertion of Endotracheal Airway into Trachea, Via Natural or Artificial Opening Endoscopic (ICD-10-PCS; 2021-02-16)
PROC: 5A1945Z Respiratory Ventilation, 24-96 Consecutive Hours (ICD-10-PCS; 2021-02-16)
PROC: 04HK33Z Insertion of Infusion Device into Right Femoral Artery, Percutaneous Approach (ICD-10-PCS; 2021-02-16)
PROC: 05HM33Z Insertion of Infusion Device into Right Internal Jugular Vein, Percutaneous Approach (ICD-10-PCS; 2021-02-16)
PROC: B543ZZA Ultrasonography of Right Jugular Veins, Guidance (ICD-10-PCS; 2021-02-16)
PROC: 5A1D70Z Performance of Urinary Filtration, Intermittent, Less than 6 Hours Per Day (ICD-10-PCS; 2021-02-17)
DX: A41.02 Sepsis due to Methicillin resistant Staphylococcus aureus (principal); L89.524 Pressure ulcer of left ankle, stage 4; L89.893 Pressure ulcer of other site, stage 3; L89.324 Pressure ulcer of left buttock, stage 4; L89.224 Pressure ulcer of left hip, stage 4; E43 Unspecified severe protein-calorie malnutrition; J96.01 Acute respiratory failure with hypoxia; R53.2 Functional quadriplegia; N17.0 Acute kidney failure with tubular necrosis; M00.9 Pyogenic arthritis, unspecified; N18.4 Chronic kidney disease, stage 4 (severe); E87.1 Hypo-osmolality and hyponatremia; G93.1 Anoxic brain damage, not elsewhere classified; D62 Acute posthemorrhagic anemia; M46.28 Osteomyelitis of vertebra, sacral and sacrococcygeal region; B37.49 Other urogenital candidiasis; I12.9 Hypertensive chronic kidney disease with stage 1 through stage 4 chronic kidney disease, or unspecified chronic kidney disease; D63.8 Anemia in other chronic diseases classified elsewhere; Z20.822 Contact with and (suspected) exposure to COVID-19; E78.5 Hyperlipidemia, unspecified; E83.51 Hypocalcemia; E86.1 Hypovolemia; E87.5 Hyperkalemia; G89.4 Chronic pain syndrome; S24.102S Unspecified injury at T2-T6 level of thoracic spinal cord, sequela; X58.XXXS Exposure to other specified factors, sequela; F17.210 Nicotine dependence, cigarettes, uncomplicated; N31.9 Neuromuscular dysfunction of bladder, unspecified; L98.429 Non-pressure chronic ulcer of back with unspecified severity; E11.69 Type 2 diabetes mellitus with other specified complication; L89.626 Pressure-induced deep tissue damage of left heel; S81.801A Unspecified open wound, right lower leg, initial encounter; X58.XXXA Exposure to other specified factors, initial encounter; Y92.9 Unspecified place or not applicable; L89.156 Pressure-induced deep tissue damage of sacral region; M62.462 Contracture of muscle, left lower leg; M62.461 Contracture of muscle, right lower leg; T41.45XA Adverse effect of unspecified anesthetic, initial encounter; Y92.89 Other specified places as the place of occurrence of the external cause; E11.22 Type 2 diabetes mellitus with diabetic chronic kidney disease; Z99.2 Dependence on renal dialysis; Z87.442 Personal history of urinary calculi; D72.823 Leukemoid reaction; E66.9 Obesity, unspecified; Z66 Do not resuscitate; R65.20 Severe sepsis without septic shock
CPT/HCPCS: 31720; 36415; 36600; 71045-TC; 80048-TC; 80053-TC; 80076-TC; 81001; 82550-TC; 82553; 82803-TC; 82962-TC; 83605-TC; 83735-TC; 84100-TC; 84478-TC; 84484-TC; 85025-TC; 85610-TC; 85730-TC; 86706; 86850-TC; 87040-TC; 87070-TC; 87081-TC; 87086-TC; 87186-TC; 87340; 88305-TC; 88311-TC; 90935-TC; 92950-TC; 94002-TC; 94003-TC; 94760-TC; 94799-TC; 99082-TC; A4216; A4217; A6209; A6253; A6403; C1750; C1751; G0378; J0171; J1170; J1450; J1644; J1815; J1940; J2020; J2060; J2185; J2250; J2370; J2405; J2704; J2765; J3010; J3475; J3490; J7030; J7040; J7042; J7050; J7060; J7070; P9016; P9047